=== PATIENT | female | born 1940 | race Caucasian/White ===

== ENCOUNTER 2023-03-20 12:05 | Outpatient (OUT) | payer MEDICARE, SELFPAY ==
[2023-03-20 13:02] LABS: Cholesterol 172 mg/dL (<=200); HDL Cholesterol 57 mg/dL (40-60); Triglycerides 210 mg/dL (<=150)
== END 2023-03-20 12:06 ==
LOC: LAB 12:10
PROVIDERS: PCP Internal Medicine; Visit Provider Internal Medicine Cardiovascular Disease
DX: E66.9 Obesity, unspecified (principal); Z13.220 Encounter for screening for lipoid disorders
CPT/HCPCS: 36415; 80061

== ENCOUNTER 2023-07-19 11:21 | Outpatient (OUT) | payer MEDICARE, SELFPAY ==
[2023-07-19 12:07] LABS: Basophils Percent Auto 0.5 % (0.2-2.0); Eosinophils Absolute Auto 0.1 10^3/uL (0.0-0.7); Eosinophils Percent Auto 1.1 % (0.9-7.0); Hematocrit 42.6 % (36.0-48.0); Hemoglobin 13.9 g/dL (12.0-16.0); Immature Granulocytes Abs Auto 0.02 10^3/uL (0.00-0.03); Immature Granulocytes Pct Auto 0.3 % (0.0-0.5); Lymphocytes Absolute Auto 1.1 10^3/uL (1.2-3.8); Lymphocytes Percent Auto 14.7 % (20.5-60.0); Mean Corpuscular HGB Conc 32.6 g/dL (29.9-35.2); Mean Corpuscular Hemoglobin 31.4 pg (26.7-34.0); Mean Corpuscular Volume 96.2 fL (81.0-99.0); Mean Platelet Volume 9.7 fL (9.5-13.5); Monocytes Absolute Auto 0.8 10^3/uL (0.3-0.8); Monocytes Percent Auto 10.4 % (1.7-12.0); Neutrophils Absolute Auto 5.6 10^3/uL (1.4-6.5); Platelet Count 204 10^3/uL (150-450); Red Blood Count 4.43 10^6/uL (4.20-5.40); Red Cell Distribution Width 13.4 % (11.0-15.0); White Blood Count 7.6 10^3/uL (4.0-11.0)
[2023-07-19 12:26] LABS: Estimated Average Glucose 126 mg/dL
[2023-07-19 12:57] LABS: BUN Creatinine Ratio 17.9; Chloride 101 mmol/L (98-107); Estimated GFR (African America 54 (>=60); Estimated GFR (Non-African Ame 44 (>=60); Glucose 93 mg/dL (74-106); Sodium 139 mmol/L (136-145); Thyroid Stimulating Hormone 2.366 uIU/mL (0.358-3.740)
--- NOTE | 2023-07-20 07:40 | PC.NURSE ---
1130 Arrived per wheelchair with lab staff, Rt chest port accessed with #[id number] villegas needle, obtained good blood return, labs drawn and given to lab staff, flushed with NSS and Heparin flush solution. Tolerated well. Released per wheelchair.
== END 2023-07-19 11:22 | disposition home or self-care (01) ==
LOC: LAB 11:24
PROVIDERS: PCP Internal Medicine; Visit Provider Internal Medicine
DX: E11.65 Type 2 diabetes mellitus with hyperglycemia (principal); E11.22 Type 2 diabetes mellitus with diabetic chronic kidney disease; N18.4 Chronic kidney disease, stage 4 (severe); E06.3 Autoimmune thyroiditis; D51.0 Vitamin B12 deficiency anemia due to intrinsic factor deficiency; R53.83 Other fatigue
CPT/HCPCS: 36415; 36591; 80048; 82607; 83036; 84443; 85025; G0463

== ENCOUNTER 2024-11-10 13:22 | Outpatient (OUT) | payer MEDICARE, SELFPAY ==
[2024-11-10 13:52] LABS: Basophils Absolute Auto 0.1 10^3/uL (0.0-0.1); Basophils Percent Auto 0.8 % (0.2-2.0); Eosinophils Absolute Auto 0.1 10^3/uL (0.0-0.7); Eosinophils Percent Auto 0.8 % (0.9-7.0); Hematocrit 44.1 % (36.0-48.0); Hemoglobin 14.1 g/dL (12.0-16.0); Immature Granulocytes Abs Auto 0.02 10^3/uL (0.00-0.03); Immature Granulocytes Pct Auto 0.2 % (0.0-0.5); Lymphocytes Absolute Auto 1.3 10^3/uL (1.2-3.8); Mean Corpuscular Volume 96.9 fL (81.0-99.0); Mean Platelet Volume 9.5 fL (9.5-13.5); Monocytes Absolute Auto 0.8 10^3/uL (0.3-0.8); Neutrophils Absolute Auto 6.3 10^3/uL (1.4-6.5); Neutrophils Percent Auto 74.2 % (43.0-75.0); Platelet Count 215 10^3/uL (150-450); Red Blood Count 4.55 10^6/uL (4.20-5.40); Red Cell Distribution Width 13.2 % (11.0-15.0); White Blood Count 8.5 10^3/uL (4.0-11.0)
[2024-11-10 13:55] LABS: Estimated Average Glucose 117 mg/dL; Glycohemoglobin A1C 5.7 % (4.5-6.2)
[2024-11-10] MEDS: HEPARIN SODIUM (PORCINE) PF LOCK FLUSH 500 UNIT/5 ML SYRINGE IV (13:59)
[2024-11-10 14:15] LABS: Alanine Aminotransferase 20 U/L (14-59); Albumin Globulin Ratio 0.9; Albumin Level 3.3 g/dL (3.4-5.0); Alkaline Phosphatase 116 U/L (46-116); Anion Gap 11.3; Aspartate Amino Transferase 20 U/L (15-37); BUN Creatinine Ratio 14.2; Bilirubin Total 0.5 mg/dL (0.2-1.0); Calcium 8.2 mg/dL (8.5-10.1); Carbon Dioxide 28.5 mmol/L (21.0-32.0); Chloride 104 mmol/L (98-107); Estimated GFR (African America 49 (>=60 mL/min/1.73m^2); Estimated GFR (Non-African Ame 40 (>=60 mL/min/1.73m^2); Globulin 3.8 g/dL; Glucose 122 mg/dL (74-106); Potassium 4.8 mmol/L (3.5-5.1); Sodium 139 mmol/L (136-145); Total Protein 7.1 g/dL (6.4-8.2)
[2024-11-10 14:24] LABS: Microalbum Creatinine Ratio Ur 10.7 mg/g (0.0-29.9); Microalbumin Urine Random 2.1 mg/dL (<=30.0)
== END 2024-11-10 13:23 | disposition home or self-care (01) ==
PROVIDERS: PCP Internal Medicine; Visit Provider Internal Medicine
DX: I12.9 Hypertensive chronic kidney disease with stage 1 through stage 4 chronic kidney disease, or unspecified chronic kidney disease (principal); N18.4 Chronic kidney disease, stage 4 (severe); E11.65 Type 2 diabetes mellitus with hyperglycemia; E03.8 Other specified hypothyroidism; E06.3 Autoimmune thyroiditis; I48.0 Paroxysmal atrial fibrillation
CPT/HCPCS: 36591; 80053; 82043; 82570; 83036; 84443; 85025; J1642

== ENCOUNTER 2025-01-29 11:42 | Outpatient (OUT) | payer MEDICARE, SELFPAY ==
--- NOTE | 2025-01-29 11:53 | XR_ITS ---
[facility] [place] [id number] Patient Name: MELIDA VALERIO MRN: [id number] date: 1940 Sex: F Assigned Patient Location: [facility] Current Patient Location: [facility] Accession/Order Number: [id number] Exam Date: 01/29/2025 12:22 Report Date: 01/29/2025 12:26 At the request of: ERIN ESPINO DO Procedure: XR thoracic spine 3V THORACIC SPINE - 3 views: CLINICAL HISTORY: Acute left-sided back pain for the past couple months COMPARISON: CT 10/29/2023 AP, lateral and swimmer's views were obtained. There is osteopenia. There is subtle dextroscoliotic curvature. There is no evidence of compression fracture or displacement. The pedicles are intact. Mild multilevel endplate spurring is seen. There are changes also noted at the cervical spine. There are no paraspinal soft tissue abnormalities. There is a right-sided Oesigt-w-Polq catheter. XR/XR thoracic spine 3V IMPRESSION: OSTEOPENIA, SCOLIOSIS AND DEGENERATIVE CHANGES. Impression dictated by: Melida Rodgers M.D.01/29/2025 12:26 PM Dictation Location: [place] [address] Electronically authenticated by: [id number] Y Date: 01/29/2025 12:26
== END 2025-01-29 11:43 | disposition home or self-care (01) ==
LOC: RAD 11:44
PROVIDERS: PCP Internal Medicine; Visit Provider Internal Medicine
DX: M54.6 Pain in thoracic spine (principal); M85.80 Other specified disorders of bone density and structure, unspecified site; M41.84 Other forms of scoliosis, thoracic region
CPT/HCPCS: 72072

== ENCOUNTER 2025-06-02 10:38 | Outpatient (REF) | payer MEDICARE, SELFPAY ==
--- OUTSIDE RECORDS SUMMARY | 2025-05-25 11:07 | XMS_ITS | Encounter Summary ---
Author Organization [facility] tem Address [id number] [address] [place] [address] Care Team Providers Care Picker Operator Name Role Phone Abhijit Wong Hernandez DO Primary Care Provider [phone] Encounter Details Date Type Department Care Team (Latest Contact Info) Description 05/25/2025 11:07 AM EDT - 05/25/2025 11:59 PM EDT Hospital Encounter [facility] - Pulmonary Function [address] [place] [id number] Persistent atrial fibrillation ([facility]) Discharge Disposition: Home Social History Tobacco Use Types Packs/Day Years Used Date Smoking Tobacco: Former Smokeless Tobacco: Never Childcare Answer Date Recorded Childcare Unknown 03/27/2019 Employment Answer Date Recorded Employment Unknown 03/27/2019 Purpose - Life Answer Date Recorded Purpose and direction in life Unknown Comments No Sex and Gender Information Value Date Recorded Sex Assigned at Not on file Legal Sex Female 5:36 PM EDT Gender Identity Not on file Sexual Orientation Not on file documented as of this encounter Medications at Time of Discharge amiodarone (PACERONE) 100 mg tablet Take 1 tablet (100 mg total) by mouth in the morning. amLODIPine (NORVASC) 5 mg tablet amlodipine 5 mg tablet busPIRone (BUSPAR) 7.5 mg tablet Take 1 tablet (7.5 mg total) by mouth 3 (three) times a day. fluticasone propion-salmete roL (ADVAIR) 100-50 mcg/dose DISKUS Advair Diskus 100 mcg-50 mcg/dose powder for inhalation hydroCHLOROthia zide (HYDRODIURIL) 25 mg tablet hydrochlorothiazide 25 mg tablet levothyroxine (SYNTHROID, LEVOTHROID) 125 MCG tablet levothyroxine 125 mcg tablet levothyroxine sodium (TIROSINT) 112 mcg capsule Take 112 mcg by mouth daily. montelukast (SINGULAIR) 10 mg tablet Take 10 mg by mouth nightly. orphenadrine (NORFLEX) 100 mg 12 hr tablet Take 1 tablet (100 mg total) by mouth 2 (two) times a day as needed for muscle spasms. 14 tablet 3 spironolactone (ALDACTONE) 25 mg tablet Take 1 tablet (25 mg total) by mouth in the morning. torsemide (DEMADEX) 20 mg tablet Take 1 tablet (20 mg total) by mouth daily. documented as of this encounter Plan of Treatment Upcoming Encounters Date Type Department Care Team (Late st Contact Info) Description 06/18/2025 1:30 PM EDT Infusion [facility] - Medical Oncology [address] [place] [phone] documented as of this encounter Goals Goal Patient Goal Type Associated Problems Recent Progress Patient-Stated? Author Home General Yes Jovanna Greenberg LSW Note: Evaluation of progress towards goal: Safe dc transition from hospital to home with family support. documented as of this encounter Procedures Procedure Name Priority Date/Time Associated Diagnosis Comments SPIROMETRY AND DLCO AND PLETHYSMOGRAPHY Routine 05/25/2025 11:28 AM EDT Persistent atrial fibrillation ([facility]) documented in this encounter Results * SPIROMETRY AND DLCO AND PLETHYSMOGRAPHY (05/25/2025 11:28 AM EDT) Narrative MANUALLY TRANSCRIBED RESULTS - 05/25/2025 2:13 PM EDT Patient gave good effort and data is reproducible Moderate obstructive pulmonary defect is demonstrated by FEV1/FVC 49 with FEV1 63% predicted or 1.10 L. Post bronchodilator values were not assessed Lung volumes reveal elevated residual volume 162% predicted or 3.46 L which would suggest some hyperinflation and air. Vital capacity is normal 87 % predicted. Diffusion capacity is severely impaired at 45. This can be seen in underlying emphysema, early interstitial lung disease, anemia, pulmonary vascular disease or pulmonary hypertension. Please correlate with clinical and radiographic data us Not In System Ref Prov PFT ORDERABLES Final Res ult MANUALLY TRANSCRIBED RESULTS documented in this encounter Visit Diagnoses Diagnosis Persistent atrial fibrillation (CMS-HCC) Atrial fibrillation documented in this encounter Care Teams Picker Operator Relationship Specialty Start Date End Date Wong Lacey DO [address] [place] [address] PCP - General 08/02/17 documented as of this encounter
--- OUTSIDE RECORDS SUMMARY | 2025-06-01 10:49 | XMS_ITS | Continuity of Care Document ---
Author Organization [facility] Address [address] [place] [address] Phone Care Team Providers Care Cuff Setter Overlock Name Role Phone Wong Lacey DO Primary Care Provider [phone] Wong Lacey DO Attending Provider [phone] Care Teams Patient Care Team Team Status: Active Member Role Status Dates Wong Lacey DO Primary Care Provider Active Visit Care Team Team Status: Inactive Member Role Status Dates Wong Lacey DO Primary Care Provider Active Start: April 10, 2025 End: April 10, 2025 Wong Lacey DO Attending Provider Active Sta rt: April 10, 2025 End: April 10, 2025 Visit Care Team Team Status: Inactive Member Role Status Dates Wong Lacey DO Primary Care Provider Active Start: April 20, 2025 End: April 20, 2025 Wong Lacey DO Attending Provider Active Sta rt: April 20, 2025 End: April 20, 2025 Patient Care Team Team Status: Inactive Member Role Status Dates Wong Lacey DO Primary Care Provider Active Start: June 01, 2025 End: June 01, 2025 Wong Lacey DO Attending Provider Active Sta rt: June 01, 2025 End: June 01, 2025 Chief Complaint and Reason for Visit Chief Complaint Admit Date b12 shot April 10, 2025 2:22 pm UA, burning April 20, 2025 11:03 am 4 mo f/u June 01, 2025 1: 40pm Reason for Visit Admit Date Acute thoracic back pain June 01 1:40pm Atrial fibrillation June 01, 2025 1: 40pm Chronic bronchitis [place] 18th, 2025 1: 40pm Chronic kidney disease June 01, 2025 1:40pm Essential hypertension June 01, 2025 1:40pm SKYLAR (generalized anxiety disorder) Augus t 2024 1:40pm History of breast cancer June 01 1:40pm Hypothyroid June 01, 2025 1: 40pm Malignant neoplasm of middle lobe of rig ht lung June 01, 2025 1:40pm Type 2 diabetes mellitus with hyperglyce michelle June 01, 2025 1:40pm Allergies, Adverse Reactions, Alerts Allergen Type Severity Reaction Last Updated Verified Status Comments erythromycin base Allergy Unknown Unknown Reaction June 01, 2025 1:58pm Yes Active RADHA Inhibitors Allergy Unknown Unknown Reaction June 01, 2025 1:58pm Yes Active rivaroxaban Allergy Unknown Unknown Reaction June 01, 2025 1:58pm Yes Active tiotropium Allergy Unknown Unknown Reaction June 01, 2025 1:58pm Yes Active Spiriva Respimat *ANTIASTHMATI Allergy Unknown Comment:oral irritation July 14, 2024 11:12am No Active Free Text Allergy: Spiriva Respimat *ANTIASTHMATIC AND BRONCHODILATOR Social History Smoking Status Status Start Date End Date Date of Observa tion Ex-smoker (finding) April 10:04am Observation Status Observation Response Date of Response Legal Sex Female (finding) Sex Assigned At Female 1940 Family History Relationship Condition Age at Onset Recorded Date/T madelaine Not Specified Malignant neoplasm of pancreas Unknown Malignant neoplasm of prostate Unknown father Hypertension Unknown Heart disease Unknown mother Malignant neoplasm Unknown Malignant neoplasm of breast Unknown Hypertension Unknown sister Malignant neoplasm of breast Unknown Malignant neoplasm Unknown Problems Active Problems Medical Problem Onset Date Status Comments Peripheral polyneuropathy Unknown Active Acute thoracic back pain Unknown Active Medicare annual wellness vis it, subsequent Unknown Active SKYLAR (generalized anxiety disorder) Unknown Active Type 2 diabetes mellitus wit h hyperglycemia Unknown Active History of breast cancer Unknown Active Diplopia Unknown Active Impaired mobility and activi ties of daily living Unknown Active Shingles Unknown Active Pernicious anemia Unknown Active Generalized weakness Unknown Active Atrial fibrillation Unknown Active Echo: LV EF 60%, RV normal size/function, RVSP normal - 01/2019 Dysuria Unknown Active 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 Unknown Active Hypothyroid Unknown Active Chronic kidney disease Unknown Active Non-small cell lung cancer (NSCLC) Unknown Active Essential hypertension Unknown Active Neuromuscular junction disorder Unknown Active Ptosis of eyelid, left Unknown Active Chronic bronchitis Unknown Active Medications Medication Status Dose Units Route Directions Qty Days St art Date Stop Date End Date Instructions Adherence Lorazepam 0.5 mg tablet Discont inued 0.5 MG PO Daily at bedtime as needed for anxiety and sleep 30 2023 5:28pm March 04, 2024 12:55 pm Levothyroxi ne 125 mcg tablet Discont inued 0 .ROUTE .COMPLEX February 04, 2024 1:22pm December 28, 2024 10:47 am TAKE 1 TABLET BY MOUTH DAILY ON SUNDAY, SUNDAY, AND SUNDAY Lorazepam 0.5 mg tablet Discont inued 0.5 MG PO Daily at bedtime as needed for anxiety and sleep 30 March 04, 2024 12:54p m Septe mber 2023 10:19 am Buspirone 15 mg tablet Discont inued 0 .ROUTE .COMPLEX 60 April 18, 2024 4:03pm Dece ravin 2023 4:31p m TAKE 1 TABLET BY MOUTH TWICE A DAY Blood Sugar Diagnostic ([facility] Ultra Test) strip Active 0 .Route 100 April 29, 2024 12:00a m to test blood sugar daily Lorazepam 0.5 mg tablet Discont inued 0.5 MG PO Daily at bedtime as needed for anxiety and sleep Septem ravin 2023 10:19a m [facility] ravin 2023 11:14 am Lorazepam 0.5 mg tablet Discont inued 0.5 MG PO Daily at bedtime as needed for anxiety and sleep Novemb er 2023 11:13a m March 06, 2025 1:06p m Buspirone 15 mg tablet Active 0 .ROUTE .COMPLEX 60 Dece er 2023 9:26am TAKE 1 TABLET BY MOUTH TWICE A DAY Complies with drug therapy Amiodarone 100 mg tablet Discont inued 0 PO Daily 90 90 2024 5:55pm Augus t 2024 1:57p m 5 times weekly orally daily; Levothyroxi ne 125 mcg tablet Active 0 .ROUTE .COMPLEX 36 December 28, 2024 10:47a m TAKE 1 TABLET BY MOUTH DAILY ON SUNDAY, SUNDAY, AND SUNDAY Complies with drug therapy Amlodipine 2.5 mg tablet Discont inued 0 .ROUTE .COMPLEX February 22, 2025 8:07am Augus t 2024 2:07p m TAKE 1 TABLET BY MOUTH DAILY Lorazepam 0.5 mg tablet Active 0.5 MG PO Daily at bedtime as needed for anxiety and sleep March 06, 2025 1:06pm Complies with drug therapy Fluticasone Propion-Alphonso meterol (Advair Diskus) 250-50 mcg/dose Blister With Device Discont inued 1 INH INHALA TION Q12H June 07, 2021 12:00a m January 30, 2022 1:49p m Amiodarone 200 mg Tablet Discont inued 200 MG PO Daily June 07, 2021 12:00a m January 30, 2022 1:49p m Amlodipine 5 mg Tablet Discont inued 5 MG PO Daily June 07, 2021 12:00a m January 30, 2022 1:49p m Levothyroxi ne 125 mcg Tablet Discont inued 125 MCG PO every Sunday, Sunday, and Monday June 07, 2021 12:00a m January 30, 2022 1:49p m Montelukast 10 mg Tablet Discont inued 10 MG PO Daily June 07, 2021 12:00a m Decem 2020 1:05p m Hydrochloro thiazide 25 mg Tablet Discont inued 25 MG PO Daily June 07, 2021 12:00a m January 30, 2022 1:49p m Albuterol Sulfate (Proair Hfa) 90 mcg/actuati on Hfa Aerosol Inhaler Discont inued 2 PUFF INHALA TION Q4H as needed for Dyspnea June 07, 2021 12:00a m January 30, 2022 1:49p m Levothyroxi ne 112 mcg Tablet Discont inued 112 MCG PO As Directed June 07, 2021 12:00a m January 30, 2022 1:49p m every sunday, , sunday, sunday Lorazepam 0.5 mg Tablet Discont inued 0.5 MG PO Twice daily as needed for Sleep 60 June 09, 2021 12:00a m Octob er 2020 10:20 am Ondansetron Hcl 8 mg Tablet Discont inued 8 MG PO Q8H as needed for Nausea 30 Septem ravin 2020 12:00a m Decem ravin 2020 1:05p m Lorazepam 0.5 mg Tablet Discont inued 0.5 MG PO Twice daily as needed for Sleep 60 30 Octobe r 2020 10:20a m Novem ravin 2020 11:28 am Gabapentin 300 mg Capsule Discont inued 300 MG PO Three times daily 90 Novemb er 2020 12:00a m Janua ry 2021 12:23 pm Levofloxaci n (Levaquin) 750 mg Tablet Discont inued 750 MG PO Daily Novemb er 2020 12:00a m Decem ravin 2020 1:01p m Omeprazole (Prilosec) 10 mg Capsule,Del ayed Release(Dr/ Ec) Discont inued 10 MG PO Daily Novemb er 2020 1:00am January 16, 2022 5:28p m Magic Mouth Wash Discont inued 1 TSP PO Q6H Novemb er 2020 1:00am Decem ravin 2020 1:04p m Lorazepam 0.5 mg Tablet Discont inued 0.5 MG PO Twice daily as needed for Sleep 60 30 Novemb er 2020 11:28a m Decem ravin 2020 1:05p m Hyaluronic Na-Allantoi n-Aloe (Radiaplexr x) Gel Discont inued 1 APPLIC TOPICA L Three times daily Novemb er 2020 1:00am Decem ravin 2020 1:04p m Metronidazo le 500 mg Tablet Discont inued 500 MG PO Three times daily 42 14 Decemb er 2020 1:00am Octua ry 2021 12:24 pm Vancomycin (Vancocin) 125 mg Capsule Discont inued 125 MG PO Four times daily 40 Decemb er 2020 1:00am Decem ravin 2020 1:01p m Fidaxomicin 200 mg Tablet Discont inued 200 MG PO Twice daily 20 y 2021 1:00am Octua ry 2021 3:31p m Fidaxomicin 200 mg Tablet Discont inued 200 MG PO Twice daily 2021 3:31pm January 16, 2022 5:27p m Lorazepam 0.5 mg Tablet Discont inued 0.5 MG PO Bedtime as needed for Sleep 60 2021 1:00am January 10, 2022 4:02p m 1-2 tabs PRN Potassium Chloride 20 mEq Tablet Extended Release Discont inued 20 MEQ PO Daily 2021 1:00am January 30, 2022 1:49p m Vancomycin 125 mg Capsule Discont inued 125 MG PO As Directed 98 December 23, 2021 1:00am January 30, 2022 1:49p m 1 tabs BID daily until sunday01/20/22 and 1 tab weekly for 7 days Lorazepam 0.5 mg Tablet Discont inued 0.5 MG PO Bedtime as needed for Sleep 60 30 January 10, 2022 4:02pm January 30, 2022 1:49p m 1-2 tabs PRN Meclizine 25 mg Tablet Discont inued 25 MG PO Daily February 24, 2022 12:00a m 2022 10:50 am Lorazepam 0.5 mg Tablet Discont inued 0.5 MG PO Bedtime as needed for Sleep 30 30 February 24, 2022 3:47pm April 10, 2022 11:03 am Lorazepam 0.5 mg Tablet Discont inued 0.5 MG PO Bedtime as needed for Sleep 60 60 April 10, 2022 11:03a m Augus t 2021 5:07p m Prednisone 10 mg Tablet Discont inued 10 MG PO Daily 60 April 18, 2022 12:00a m Octob er 2021 6:59a m Lorazepam 0.5 mg Tablet Discont inued 0.5 MG PO Bedtime as needed for Sleep 60 60 June 09, 2022 5:07pm Novem ravin 2021 3:24p m Diazepam (Valium) 5 mg Tablet Discont inued 5 MG PO Once 5 1 Oct r 2021 12:00a m Octua ry 2022 10:50 am Take 1 tab po 30 min prior to procedure. Lorazepam 0.5 mg Tablet Discont inued 0.5 MG PO Bedtime as needed for Sleep 60 60 Novemb er 2021 3:24pm Febru reymundo 2022 1:48p m Torsemide 20 mg Tablet Discont inued 20 MG PO Daily Octuar y 2022 1:00am Augus t 2023 10:56 am Lorazepam 0.5 mg Tablet Discont inued 0.5 MG PO Bedtime as needed for Sleep 60 60 Februa ry 2022 1:47pm Febru reymundo 2022 12:10 pm Lorazepam 0.5 mg Tablet Discont inued 0.5 MG PO Bedtime as needed for Sleep 60 60 ua ry 2022 12:10p m March 20, 2023 3:24p m Lorazepam 0.5 mg Tablet Discont inued 0.5 MG PO Bedtime as needed for Sleep 60 60 March 20, 2023 3:23pm Septe mber 2022 4:07p m Buspirone 7.5 mg Tablet Discont inued 7.5 MG PO Twice daily 60 April 30, 2023 12:00a m Octua ry 2023 2:32p m Lorazepam 0.5 mg Tablet Discont inued 0.5 MG PO Bedtime as needed for Sleep 60 60 Septem ravin 2022 4:07pm Septe mber 2022 4:36p m Lorazepam 0.5 mg Tablet Discont inued 0.5 MG PO Daily at bedtime as needed for anxiety and sleep 30 30 Septem ravin 2022 12:00a m Novem ravin 2022 11:26 am Lorazepam 0.5 mg Tablet Discont inued 0.5 MG PO Daily at bedtime as needed for anxiety and sleep 30 30 Novemb er 2022 11:26a m Febru reymundo 2023 5:29p m Buspirone 15 mg tablet Discont inued 7.5 MG PO Twice daily Octobe r 2021 12:00a m April 30, 2023 10:01 am Prednisone 10 mg tablet Discont inued 10 MG PO per package directions Octobe r 2021 6:59am Janua ry 2022 10:50 am Hydrocodone -Acetaminop hen 5-325 mg tablet Discont inued 1 TAB PO Q6H as needed for pain 20 5 Octobe r 2021 2022 10:48 am Hydrocodone -Acetaminop hen 5-325 mg tablet Discont inued 1 TAB PO Q6H as needed for pain 20 5 Septem ravin 2020 Octob er 2020 1:47p m Lorazepam (Ativan) 0.5 mg tablet Discont inued 0.5 MG PO Twice daily as needed for Sleep Decemb er 2020 1:04pm Oct 2021 10:43 am Hydrocodone -Acetaminop hen 5-325 mg tablet Discont inued 1 TAB PO Q6H as needed for pain 20 5 Decemb er 2020 2021 12:23 pm Fluconazole 100 mg Tablet Discont inued 100 MG PO Every morning 6 6 January 20, 2022 12:00a m January 30, 2022 1:49p m Prednisone 10 mg Tablet Discont inued 60 MG PO Daily 84 14 January 20, 2022 12:00a m January 30, 2022 1:49p m Cyanocobala min (Vitamin B-12) 5,000 mcg capsule Discont inued 5000 MCG PO Daily January 20, 2022 12:00a m January 30, 2022 1:49p m Fluconazole 100 mg Tablet Discont inued 100 MG PO Every morning 5 5 January 30, 2022 12:00a m February 24, 2022 10:16 am Amiodarone 200 mg Tablet Discont inued 200 MG PO Daily 30 January 30, 2022 12:00a m March 28, 2024 2:28p m Cyanocobala min (Vitamin B-12) 1,000 mcg Tablet Discont inued 1000 MCG PO Daily 30 January 30, 2022 12:00a m February 24, 2022 10:16 am Amlodipine 5 mg Tablet Discont inued 5 MG PO Daily 30 January 30, 2022 12:00a m April 30, 2023 10:03 am Albuterol Sulfate (Ventolin Hfa) 90 mcg/actuati on Hfa Aerosol Inhaler Active 2 PUFF INHALA TION Q4H as needed for Dyspnea 1 January 30, 2022 12:00a m Complies with drug therapy Fluticasone Propion-Alphonso meterol 113-14 mcg/actuati on Aerosol Powdr Breath Activated Discont inued 1 PUFF INHALA TION Every 12 hours 1 January 30, 2022 12:00a m March 28, 2024 3:08p m Prednisone 20 mg Tablet Discont inued 60 MG PO Daily 90 January 30, 2022 12:00a m April 18, 2022 10:50 am Aspirin 81 mg Tablet,Anne-Marie yed Release (Dr/Ec) Discont inued 81 MG PO Daily 30 January 30, 2022 12:00a m February 24, 2022 10:15 am Acetaminoph en 500 mg Tablet Discont inued 500 MG PO Q4H as needed for Pain 0 January 30, 2022 12:00a m Janua ry 2022 10:50 am Potassium Chloride (Klor-Con M20) 20 mEq Tablet,Er Particles/C rystals Discont inued 20 MEQ PO Daily 30 January 30, 2022 12:00a m April 30, 2023 10:03 am Lorazepam 0.5 mg Tablet Discont inued 0.5 MG PO Bedtime as needed for Sleep 0 January 30, 2022 12:00a m February 24, 2022 3:47p m Levothyroxi ne 125 mcg Tablet Discont inued 125 MCG PO [email or web address] 13 January 30, 2022 12:00a m February 04, 2024 1:22p m Hydrochloro thiazide 25 mg Tablet Discont inued 25 MG PO Daily 30 January 30, 2022 12:00a m April 30, 2023 10:02 am Levothyroxi ne (Synthroid) 112 mcg Tablet Discont inued 112 MCG PO [email or web address] 30 18 January 30, 2022 12:00a m Decem ravin 2023 4:31p m Fluticasone Propion-Alphonso meterol (Advair Diskus) 250-50 mcg/dose blister with device Active 1 INH INHALA TION Twice daily 60 30 Decemb er 2023 1:00am Complies with drug therapy Buspirone 15 mg tablet Discont inued 15 MG PO Twice daily 180 90 Decemb er 2023 4:30pm Decem ravin 2023 9:26a m Levothyroxi ne (Synthroid) 112 mcg tablet Active 112 MCG PO [email or web address] 30 52 90 Decemb er 2023 4:30pm Complies with drug therapy Vancomycin 125 mg capsule Discont inued 125 MG PO Daily June 13, 2024 12:00a m Augus t 2023 1:05p m Cephalexin 500 mg capsule Discont inued 500 MG PO Three times daily 26 02June 13, 2024 12:00a m [facility] 2023 2:16p m Vancomycin 125 mg capsule Discont inued 125 MG PO Daily 09 25June 13, 2024 12:00a m [facility] 2023 2:16p m Buspirone 7.5 mg tablet Discont inued 7.5 MG PO Twice daily 2023 2:31pm March 28, 2024 2:28p m Buspirone 7.5 mg tablet Discont inued 15 MG PO Twice daily March 28, 2024 2:24pm April 18, 2024 4:03p m Melatonin 5 mg capsule Active 5 MG PO Daily at bedtime March 28, 2024 12:00a m Complies with drug therapy Amiodarone 200 mg tablet Discont inued 100 MG PO Daily March 28, 2024 2:26pm Febru reymundo 2024 5:57p m Vit No.126-Iron -Folic (Classic ) 28 mg iron- 800 mcg tablet Active 1 TAB PO Daily March 28, 2024 12:00a m Complies with drug therapy Spironolact one 25 mg tablet Active 50 MG PO Daily March 28, 2024 12:00a m Complies with drug therapy Docusate Sodium 100 mg capsule Active 1 CAP PO Daily March 28, 2024 12:00a m FreeTextSi capsule as needed Orally Once a day; Note: Source Status: Taking; Provider: Abhijit Back ( ) Complies with drug therapy Fluticasone Propion-Alphonso meterol (Advair Diskus) 250-50 mcg/dose blister with device Discont inued 1 INH INHALA TION Twice daily 60 March 28, 2024 12:00a m Decem 2023 4:14p m Valacyclovi r 1 gram tablet Active 1000 MG PO Every 8 hours 21 7 Sept2023 12:00a m Complies with drug therapy Amlodipine 2.5 mg tablet Discont inued 2.5 MG PO Daily 30 January 27, 2025 12:00a m February 22, 2025 8:08a m Amiodarone 100 mg tablet Active 100 MG PO Daily June 01, 2025 1:56pm Complies with drug therapy Amlodipine 5 mg tablet Active 5 MG PO Daily June 01, 2025 2:06pm Complies with drug therapy Immunizations Immunization Event Date Not Given Reason Dose Number Lumber Handler Lot Number Vaccine Information Statement (VIS) Detail Administration Location COVID-19 mRNA-1273 (Moderna) October 25, 2020 COVID-19 mRNA-1273 (Moderna) December 10, 2020 COVID-19 mRNA-1273 (Moderna) January 10, 2021 COVID-19 mRNA-1273 (Moderna) June 23, 2021 COVID-19 mRNA-1273 (Moderna) November 22, 2020 COVID-19 mRNA-1273 (Moderna) June 13, 2021 Fluzone TIV High-Dose [id number] August 06, 2024 [id number] [facility] influenza, unspecified formulation July 13, 2016 influenza, unspecified formulation June 21, 2017 influenza, unspecified formulation July 31, 2018 influenza, unspecified formulation July 30, 2019 influenza, unspecified formulation September 08, 2020 influenza, unspecified formulation July 08, 2021 influenza, unspecified formulation August 15, 2022 influenza, unspecified formulation June 22, 2023 Pneumococcal Conjugate Vaccine, 13 valent July 17, 2016 Pneumococcal Conjugate Vaccine, 20 valent September 26, 2023 Tetanus, Diphtheria, Pertussis (Tdap) November 14, 2021 [id number] [facility] Medical Equipment Device Date Implanted Date Explanted Device Deta ils Vascular port/catheter August 10, 2022 TRENT: [id number] Issuing Agency: [facility] Device Id: [id number] Expiration Date: 2023-04-13 Lot Number: [id number] Vascular port/catheter June 27, 2021 October 13, 2021 TRENT: [id number] Issuing Agency: [facility] Device Id: [id number] Expiration Date: 2022-06-14 Lot Number: [id number] Vascular port/catheter October 13, 2021 August 10, 2022 TRETN: [id number] Issuing Agency: [facility] Device Id: [id number] Expiration Date: 2022-10-14 Lot Number: [id number] Relevant Diagnostic Tests and/or Laboratory Data Laboratory Results Test Collection Date/Time Result Date/Time Result Interpretation Reference Range Result Comment Performing Site Urine Color April 20, 2025 11:29am April 20, 2025 11:31am yellow Urine Appearance April 20, 2025 11:29am April 20, 2025 11:31am clear Urine Specific [place] April 20, 2025 11:29am April 20, 2025 11:31am 1.000 Urine pH April 20, 2025 11:29am April 20, 2025 11:31am 6.0 Urine Leukocyte Esterase April 20, 2025 11:29am April 20, 2025 11:31am negative Urine Nitrite April 20, 2025 11:29am April 20, 2025 11:31am Negative Urine Protein April 20, 2025 11:29am April 20, 2025 11:31am 15 Urine Glucose (UA) April 20, 2025 11:29am April 20, 2025 11:31am negative Urine Ketones April 20, 2025 11:29am April 20, 2025 11:31am negative Urine Urobilinoge n April 20, 2025 11:29am April 20, 2025 11:31am 0.2 Urine Bilirubin April 20, 2025 11:29am April 20, 2025 11:31am negative Urine Occult Blood April 20, 2025 11:29am April 20, 2025 11:31am negative Vital Signs Vital Reading Result Reference Range Collection Date/Time Height 65 [in_i] June 01 1:47pm Weight 88.45 kg June 01 1:47pm Heart Rate 65 /min 60-100 June 01 1:47pm Respiratory rate 12 /min 12-24 May 1:47pm BP Systolic 158 mm[Hg] 100-140 June 01 1:47pm BP Diastolic 73 mm[Hg] 60-100 June 01 1:47pm BMI (Body Mass Index) 32.4 kg/m2 June 01, 2025 1:47pm Advance Directives Advance Directive Response Recorded Date/ Time Advance Directives No June 07, 2021 12:28pm Insurance Providers Guarantor Melida Hermosillo Address [address] [place] [address] Contact Info. Home Phone: Payer Policy Id Subscriber's Name Subscriber Id Effectiv e Date Expiration Date Medicare Rehab-IP Part A [id number] [employer] [facility] [id number] Melida Hermosillo [id number] Encounters Encounter Location(s) Arrival/Admit Date Discharge/Depart Date Provider(s) Departed Physician/Prov ider Office Visit -[facility] April 10, 2025 2:22pm April 10, 2025 2:31pm Wong Lacey DO Departed Physician/Prov ider Office Visit -[facility] April 20, 2025 11:03am April 20, 2025 11:31am Wong Lacey DO Departed Physician/Prov ider Office Visit -[facility] June 01, 2025 1:40pm June 01, 2025 2:48pm Wong Lacey DO Recent Diagnosis Onset Date Admit Date Acute thoracic back pain Unknown June 01, 2025 1:40pm Atrial fibrillation Unknown June 01, 2025 1:40pm Chronic bronchitis Unknown June 01, 2025 1:40pm Chronic kidney disease Unknown June 012024 1:40pm Essential hypertension Unknown June 012024 1:40pm SKYLAR (generalized anxiety disorder) Unknown June 01, 2025 1:40pm History of breast cancer Unknown June 01, 2025 1:40pm Hypothyroid Unknown June 01 1:40pm 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 Unknown June 01, 2025 1:40pm Type 2 diabetes mellitus with hyperglycemia Unkn own June 01, 2025 1:40pm Assessments Diagnosis Onset Date Resolution Status Admit Date Acute thoracic back pain acute June 01, 2025 1:40pm Atrial fibrillation acute Augus t 2024 1:40pm Chronic bronchitis acute June 01, 2025 1:40pm Chronic kidney disease acute Au dionisio 2024 1:40pm Essential hypertension acute [facility] 2024 1:40pm SKYLAR (generalized anxiety disorder) acute June 01 1:40pm History of breast cancer acute June 01, 2025 1:40pm Hypothyroid acute June 01, 2025 1:40pm 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 Authored May 30, 2025 7: 52am I have instructed this patie nt to consume a healthy, low-fat, low-salt diet. I have also encouraged them to continue exercise with weight loss to achieve/maintain a BMI < 30. I have instructed this patient on the correct procedure for obtaining home BP measurements: - rest for 5 minutes w/o talking. - positioned w/ feet on floor and arms supported. - average best 2/3 readings w/ goal < 135/85. - update office w/ home readings in 2 weeks. Continue Spironolactone without interruption Restart Amlodipine at 2.5mg qd This patient is rhythm controlled. I instructed them to monitor their BP, HR and daily weights. I also instructed them to monitor for bleeding complications, including epistaxis, hematuria, melena and hematochezia. Not anticoagulated due to life threatening bleeding. Continue Amiodarone without interruption I instructed this patient on the benefits of adequate control of hypertension and diabetes, if appropriate. I have also instructed them to avoid use of NSAIDs due to the adverse effects on renal function. I instructed them on adequate fluid balance and to consume at least 48 oz of fluids daily. I also instructed them to monitor for an unexplained increase in weight and lower extremity edema. They have been instructed to notify the office for any changes or concerns. Acute mid back pain w/o provoking injury. Instructed on heat/ice and Tylenol. XR to r/o compression fracture or pathologic bone lesion Clinically euthyroid, monitor TSH Continue Levothyroxine without interruption I have instructed this patient to follow a comprehensive diabetic treatment plan. I have also instructed them to check their feet daily for calluses and nonhealing ulcers. I have instructed them to have a yearly dilated eye examination. I have reviewed their treatment goals: SBP less than 130, LDL less than 100, FBS less than 140, A1C less than 7%. I have instructed them to maintain a home BS log and bring the results to each of their office visits for review. I have explained the importance of routine monitoring of their A1C, Microalbumin and Lipids. I have explained the benefits of well controlled diabetes in preventing micro and macrovascular complications. A1C 5.7% Oct 2024 Instructed to use mucolytics to assist in clearing secretions. They are aware of the hazards associated with tobacco use, including but not limited to respiratory infections, vascular disease and cancers. Not a candidate for yearly LDCT chest for lung cancer screening. improve compliance of maintenance inhalers to bid JAQUAN as needed for cough, dyspnea Continue Advair and Albuterol without interruption Instructed on a healthy diet and exercise routine. Instructed to continue medical treatment w/o interruption. Instructed to avoid abrupt d/c of medication due to w/d symptoms. Continue Buspirone without interruption No s/s recurrence f/u Oncology I have instructed this patient on monthly SBE and recommended yearly mammograms. No s/s recurrence. f/u Oncology and Pulmonary Future Tests Future scheduled test information is unavailable Pending Tests Pending diagnostic test information is unavailable Future Visits Future appointment information is unavailable Referrals to Other Providers Referral information is unavailable Future Procedures Procedure Name Ordered Date Scheduled Date Dipstick and Microscopic June 01, 2025 2:38p m Urine Culture June 01, 2025 2:38pm Future Medications Future medication information is unavailable Patient Instructions Patient instructions are unavailable
--- OUTSIDE RECORDS SUMMARY | 2025-06-02 10:42 | XMS_ITS | Encounter Summary ---
Author Organization [employer] Address [id number] [address] [place] [address] Care Team Providers Care Bending Press Operator Name Role Phone Wong Lacey DO Primary Care Provider [phone] Encounter Details Date Type Department Care Team (Latest Contact Info) Description 05/25/2025 Travel Social History Tobacco Use Types Packs/Day Years [...] on file documented as of this encounter Plan of Treatment Upcoming Encounters Date Type Department Care Team (Late st Contact Info) Description 06/18/2025 1:30 PM EDT Infusion N[facility] - Medical Oncology [address] [place] [phone] documented as of this encounter Goals Goal Patient Goal Type Associated Problems Recent Progress Patient-Stated? Author Home General Yes Jovanna Greenberg LSW Note: Evaluation of progress towards goal: Safe dc transition from hospital to home with family support. documented as of this encounter Visit Diagnoses Not on filedocumented in this encounter Care Teams Bending Press Operator Relationship Specialty Start Date End Date Wong Lacey DO [address] [place] [address] PCP - General 08/02/17 documented as of this encounter
--- OUTSIDE RECORDS SUMMARY | 2025-06-02 10:42 | XMS_ITS | Encounter Summary ---
Author Organization [facility] Address [address] [place] [address] Phone Care Team Providers Care Computer Field Technician Name Role Phone Wong Lacey DO Primary Care Provider [phone] Wong Lacey DO Primary Care Provider [phone] Encounter Details Date Type Department Care Team (Late st Contact Info) Description 07/15/2021 Orders Only [facility] [address] [place] [address] Conversion, Onbase Social History Tobacco Use Types Packs/Day Years Used Date Smoking Tobacco: Never Assessed Comments Unknown Sex and Gender Information Value Date Recorded Sex Assigned at Not on file Legal Sex Female 4:09 PM EST Gender Identity Not on file Sexual Orientation Not on file documented as of this encounter Plan of Treatment Upcoming Encounters Date Type Department Care Team (Late st Contact Info) Description 06/11/2025 1:50 PM EDT Office Visit [facility] [address] [facility] [address] [place] [address] Khoi Harris MD [address] [facility] [address] [place] [address] Scheduled Orders Name Type Priority Associated Diagnoses Orde r Schedule OUTSIDE LAB SCAN Lab Ordered: 07/15/2021 documented as of this encounter Visit Diagnoses Not on filedocumented in this encounter Care Teams Computer Field Technician Relationship Specialty Start Date End Date Wong Lacey DO PCP - General 01/04/23 03/15/25 Wong Lacey DO [address] [place] [address] PCP - General Internal Medicine 03/16/25 documented as of this encounter
--- OUTSIDE RECORDS SUMMARY | 2025-06-02 10:42 | XMS_ITS | Clinical Summary ---
Author Organization [employer] tem Address [id number] [address] [place] [address] Care Team Providers Care Inshore Undersea Warfare Officer Name Role Phone AbhijitWong Mary CAUSEY Primary Care Provider [phone] Allergies Active Allergy Reactions Criticality Noted Date Comments Erythromycin Base 05/16/2021 Medications fluticasone propion-salme teroL (ADVAIR) 100-50 mcg/dose DISKUS Advair Diskus 100 mcg-50 mcg/dose powder for inhalation Active hydroCHLOROth iazide (HYDRODIURIL) 25 mg tablet hydrochlorothiazide 25 mg tablet Active amLODIPine (NORVASC) 5 mg tablet amlodipine 5 mg tablet Active levothyroxine sodium (TIROSINT) 112 mcg capsule Take 112 mcg by mouth daily. Active levothyroxine (SYNTHROID, LEVOTHROID) 125 MCG tablet levothyroxine 125 mcg tablet Active montelukast (SINGULAIR) 10 mg tablet Take 10 mg by mouth nightly. Active spironolacton e (ALDACTONE) 25 mg tablet Take 1 tablet (25 mg total) by mouth in the morning. Active torsemide (DEMADEX) 20 mg tablet Take 1 tablet (20 mg total) by mouth daily. Ac tive amiodarone (PACERONE) 100 mg tablet Take 1 tablet (100 mg total) by mouth in the morning. Active busPIRone (BUSPAR) 7.5 mg tablet Take 1 tablet (7.5 mg total) by mouth 3 (three) times a day. Acti ve orphenadrine (NORFLEX) 100 mg 12 hr tablet Take 1 tablet (100 mg total) by mouth 2 (two) times a day as needed for muscle spasms. 14 tablet 07/18/20 Active Active Problems Problem Noted Date Diagnosed Date Port-A-Cath in place 08/21/2024 Lung cancer 08/21/2024 Community acquired pneumonia of right lower lobe of lung 05/16/2021 Encounters Date Type Department Care Team Description 05/25/2025 11:07 AM EDT - 05/25/2025 11:59 PM EDT Hospital Encounter [facility] - Pulmonary Function [address] [place] [address] Persistent atrial fibrillation (CMS-HCC) Discharge Disposition: Home 05/25/2025 Travel 05/07/2025 1:30 PM EDT Infusion [facility] - Medical Oncology [address] [place] [phone] Malignant neoplasm of lung, unspecified laterality, unspecified part of lung (CMS-HCC) (Primary Dx); Port-A-Cath in place 05/07/2025 Travel 03/26/2025 1:30 PM EDT Infusion Nieves Roman [facility] - Medical Oncology [address] [place] [phone] Malignant neoplasm of lung, unspecified laterality, unspecified part of lung (CMS-HCC) (Primary Dx); Port-A-Cath in place 03/26/2025 Travel from Last 3 Months Family History Medical History Relation Name Comments Breast cancer Maternal Aunt Breast cancer Mother Breast cancer Sister Relation Name Status Comments Maternal Aunt Mother Sister Social History Tobacco Use Types Packs/Day Years [...] on file Sexual Orientation Not on file Last Filed Vital Signs Vital Sign Reading Time Taken Comments Blood Pressure 158/80 07/18/2023 7:32 PM EDT Pulse 57 07/18/2023 7:32 PM EDT Temperature 36.9 C (98.5 F) 07/18/2023 7:32 PM EDT Respiratory Rate 20 07/18/2023 7:32 PM EDT Oxygen Saturation 100% 07/18/2023 7:32 PM EDT Inhaled Oxygen Concentration - - Weight 90.7 kg (200 lb) 07/18/2023 7:32 PM EDT Height 167.6 cm (5' 6 ) 07/18/2023 7:32 PM EDT Body Mass Index 32.28 07/18/2023 7:32 PM EDT Plan of Treatment Upcoming Encounters Date Type Department Care Team (Late st Contact Info) Description 06/18/2025 1:30 PM EDT Infusion Nieves Roman [facility] - Medical Oncology [address] [place] [address] Health Maintenance Due Date Last Done Comments Depression Screening 1952 Zoster (Shingles) Vaccine (1 of 2) 05/10/2015 03/15/2015 COVID-19 Vaccine (4 - 2023-2 5 season) 2024 06/23/2021, 01/10/2021, 12/10/2020 Tobacco Screening 07/18/2024 07/18/2023 Influenza Vaccine 06/15/2025 08/06/2024, , 07/20/2021, Additional history exists Fall Risk Screening 02/12/2026 02/12/2025 DTaP,Tdap and Td Vaccines (2 - Td or Tdap) 11/14/2031 11/14/2021 Goals Goal Patient Goal Type Associated Problems Recent Progress Patient-Stated? Author Home General Yes Jovanna Greenberg LSW Note: Evaluation of progress towards goal: Safe dc transition from hospital to home with family support. Medical Devices Not on file Procedures Procedure Name Priority Date/Time Associated Diagnosis Comments SPIROMETRY AND DLCO AND PLETHYSMOGRAPHY Routine 05/25/2025 11:28 AM EDT Persistent atrial fibrillation (CMS-HCC) from Last 3 Months Results * SPIROMETRY AND DLCO AND PLETHYSMOGRAPHY [...] ORDERABLES Final Res ult MANUALLY TRANSCRIBED RESULTS from Last [address] [place] [address] [place] [phone] [employer] MEDICARE Advance Directives * Full Code (Latest Code Status on File) Date Activated Date Inactivated Comments 05/17/2021 11:53 AM 05/17/2021 8:03 PM Care Teams Inshore Undersea Warfare Officer Relationship Specialty Start Date End Date Wong Lacey DO [address] [place] [address] PCP - General 08/02/17
--- OUTSIDE RECORDS SUMMARY | 2025-06-02 10:42 | XMS_ITS | Encounter Summary ---
Author Organization [facility] Address [address] [place] [address] Phone Care Team Providers Care Head Turning Machine Operator Name Role Phone Wong Lacey DO Primary Care Provider [phone] Wong Lacey DO Primary Care Provider [phone] Encounter Details Date Type Department Care Team (Late st Contact Info) Description 09/25/2023 Scanned Document [facility] [address] [place] [address] Scanning, Generic Provider Social History Tobacco Use Types Packs/Day Years Used Date Smoking Tobacco: Never Assessed PHQ-2 Answer Date Recorded Patient Health Questionnaire-2 Score 4 05/16/2022 Comments Unknown Sex and Gender Information Value Date Recorded Sex Assigned at Not on file Legal Sex Female 4:09 PM EST Gender Identity Not on file Sexual Orientation Not on file documented as of this encounter Plan of Treatment Upcoming Encounters Date Type Department Care Team (Late st Contact Info) Description 06/11/2025 1:50 PM EDT Office Visit [facility] [address] [facility] [address] [place] [address] Khoi Harris MD [address] [facility] [address] [place] [address] documented as of this encounter Visit Diagnoses Not on filedocumented in this encounter Additional Health Concerns Assessment Noted Time PHQ-9 Depression Total Score: 16 022 11:33 AM EDT documented as of this encounter Care Teams Head Turning Machine Operator Relationship Specialty Start Date End Date Wong Lacey DO PCP - General 01/04/23 03/15/25 Wong Lacey DO [address] [place] [address] PCP - General Internal Medicine 03/16/25 documented as of this encounter
--- OUTSIDE RECORDS SUMMARY | 2025-06-02 10:42 | XMS_ITS | Encounter Summary ---
Author Organization [facility] Address [address] [place] [address] Phone Care Team Providers Care Sales Warehouse Driver Name Role Phone Wong Lacey DO Primary Care Provider [phone] Wong Lacey DO Primary Care Provider [phone] Encounter Details Date Type Department Care Team (Late st Contact Info) Description 11/15/2023 Scanned Document [facility] [address] [place] [phone] Scanning, Generic Provider Social History Tobacco Use [...] Description 06/11/2025 1:50 PM EDT Office Visit [facility] [address] [facility] [address] [place] [address] Khoi Harris MD [address] [facility] [address] [place] [address] Scheduled Orders Name Type Priority Associated Diagnoses Orde r Schedule PULMONARY FUNCTION TESTING PFT Ordered: 11/15/2023 documented as of this encounter Procedures Procedure Name Priority Date/Time Associated Diagnosis Comments OUTSIDE IMAGING SCAN 11/15/2023 documented in this encounter Results * OUTSIDE IMAGING SCAN (11/15/2023) Anatomical Region Laterality Modality Other Narrative 11/15/2023 Ordered by an unspecified provider. us Generic Provider Scanning OUTSIDE SCAN Final Result documented in this encounter Visit Diagnoses Not on filedocumented in this encounter Additional Health Concerns Assessment Noted Time PHQ-9 Depression Total Score: 16 022 11:33 AM EDT documented as of this encounter Care Teams Sales Warehouse Driver Relationship Specialty Start Date End Date Wong Lacey DO PCP - General 01/04/23 03/15/25 Wong Lacey DO [address] [place] [address] PCP - General Internal Medicine 03/16/25 documented as of this encounter
--- OUTSIDE RECORDS SUMMARY | 2025-06-02 10:42 | XMS_ITS | Encounter Summary ---
Author Organization [employer] Address [id number] [address] [place] [address] Care Team Providers Care Tool Tender Name Role Phone Wong Lacey Primary Care Provider [phone] Encounter Details Date Type Department Care Team (Late Contact Info) Description 08/27/2024 Abstract Nieves [facility] - Medical Oncology [facility] [place] [address] Natali Bazan Social History Tobacco Use Types Packs/Day Years [...] Encounters Date Type Department Care Team (Late Contact Info) Description 06/18/2025 1:30 PM EDT Infusion Nieves Miller [facility] - Medical Oncology [facility] [place] [address] documented as of this encounter Goals Goal Patient Goal Type Associated Problems Recent Progress Patient-Stated? Author Home General Yes Jovanna Greenberg LSW Note: Evaluation of progress towards goal: Safe dc transition from hospital to home with family support. documented as of this encounter Visit Diagnoses Not on filedocumented in this encounter Care Teams Tool Tender Relationship Specialty Start Date End Date Wong Lacey DO [address] [place] [address] PCP - General 08/02/17 documented as of this encounter
--- OUTSIDE RECORDS SUMMARY | 2025-06-02 10:42 | XMS_ITS | Encounter Summary ---
Author Organization [facility] Address [address] [place] [address] Phone Care Team Providers Care Chemical Engineering Professor Name Role Phone Wong Lacey DO Primary Care Provider [phone] Wong Lacey DO Primary Care Provider [phone] Encounter Details Date Type Department Care Team (Late st Contact Info) Description 04/18/2022 Orders Only [facility] [address] [place] [address] Conversion, Onbase Social History Tobacco Use Types [...] Description 06/11/2025 1:50 PM EDT Office Visit [facility] [address] [facility] [address] [place] [address] Khoi Harris MD [address] [facility] [address] [place] [address] Scheduled Orders Name Type Priority Associated Diagnoses Orde r Schedule OUTSIDE LAB SCAN Lab Ordered: 04/18/2022 documented as of this encounter Visit Diagnoses Not on filedocumented in this encounter Care Teams Chemical Engineering Professor Relationship Specialty Start Date End Date Wong Lacey DO PCP - General 01/04/23 03/15/25 Wong Lacey DO [address] [place] [address] PCP - General Internal Medicine 03/16/25 documented as of this encounter
--- OUTSIDE RECORDS SUMMARY | 2025-06-02 10:42 | XMS_ITS | Encounter Summary ---
Author Organization [facility] Address [address] [place] [address] Phone Care Team Providers Care Shot Hole Driller Name Role Phone Wong Lacey DO Primary Care Provider [phone] Wong Lacey DO Primary Care Provider Encounter Details Date Type Department Care Team (Late st Contact Info) Description 10/31/2023 Scanned Document [facility] [address] [place] [address] Scanning, Generic Provider Social History Tobacco Use [...] Description 06/11/2025 1:50 PM EDT Office Visit [facility] [address] [facility] [address] [place] [address] Khoi Harris MD [address] [facility] [address] [place] [address] documented as of this encounter Visit Diagnoses Not on filedocumented in this encounter Additional Health Concerns Assessment Noted Time PHQ-9 Depression Total Score: 16 022 11:33 AM EDT documented as of this encounter Care Teams Shot Hole Driller Relationship Specialty Start Date End Date Wong Lacey DO PCP - General 01/04/23 03/15/25 Wong Lacey DO [address] [place] [address] PCP - General Internal Medicine 03/16/25 documented as of this encounter
--- OUTSIDE RECORDS SUMMARY | 2025-06-02 10:42 | XMS_ITS | Clinical Summary ---
Author Organization [facility] Address [address] [facility] [place] [address] Care Team Providers Care Paper Latcher Name Role Phone Unavailable Primary Care Provider Unavailabl e Allergies Active Allergy Reactions Criticality Noted Date Comments Doron Inhibitors 11/05/2023 Other Reaction(s): Unknown, Unknown Reaction Azithromycin Other 05/22/2023 Clindamycin Hives 01/16/2017 Allergic to most antibiotics ending in mycin.??? Erythromycin Hives,Other 11/30/2023 Erythromycin Base 05/16/2021 Other Reaction(s): Unknown Reaction Rivaroxaban 11/05/2023 Other Reaction(s): Unknown Reaction Tiotropium 11/05/2023 Other Reaction(s): Unknown Reaction Tiotropium Dauphin Monohydrate 11/28/2023 Other Reaction(s): oral irritation Medications albuterol HFA 90 mcg/act inhaler Acti ve amiodarone (Pacerone) 200 MG tablet 1 (one) time each day at the same time. 09/10/20 22 Active Pacerone 100 MG tablet 03/31/20 23 Active amLODIPine (Norvasc) 5 MG tablet Active aspirin 81 MG EC tablet Take 1 tablet by mouth in the morning. Active benazepril-hydroC HLOROthiazide (Lotensin HCT) 20-25 MG tablet Acti ve budesonide (Pulmicort) 0.5 MG/2ML nebulizer solution 08/17/20 22 Active buPROPion SR (Wellbutrin SR) 150 MG 12 hr tablet 1 (one) time each day at the same time. Active busPIRone (Buspar) 15 MG tablet Buspirone Active 7.5 MG PO Twice daily August 09, 2022 11:00pm 08/10/20 22 Active busPIRone (Buspar) 5 MG tablet 03/20/20 23 Active busPIRone (Buspar) 7.5 MG tablet 04/30/20 23 Active Pepcid 20 MG tablet 1 tablet Orally at bedtime for 30 day(s) 04/05/20 22 Active Fluticasone-Salme terol 100-50 MCG/ACT aerosol powder Advair Diskus 100 mcg-50 mcg/dose powder for inhalation Active Fluticasone-Salme terol (Advair Diskus) 100-50 MCG/ACT aerosol powder Inhale 1 puff in the morning and 1 puff in the evening. Active fluticasone-salme terol (Advair Diskus) 250-50 MCG/DOSE diskus inhaler 1 puff every 12 (twelve) hours. Active gabapentin (Neurontin) 100 MG capsule Take 1 capsule as needed by oral route for 90 days. Active heparin flush 100 units/mL solution NURSING USE ONLY: USE FOR IMPLANTED VASCULAR ACCESS DEVICE (IVAD) FLUSH. AMBULATORY/OUTPAT IENT: PLEASE REORDER UPON HOSPITAL DISCHARGE May access implanted vascular access device (IVAD) as needed for treatment. Before de-accessing port, flush with 10-20ml normal saline and follow with 5 mL heparin (100 units/mL) (if no heparin allergy). De-access port on treatment completion. 12/09/19 23 Active hydroCHLOROthiazi de (HYDRODiuril) 25 MG tablet Take 1 tablet by mouth in the morning. Active hydroCHLOROthiazi de (HYDRODiuril) 25 MG tablet 1 (one) time each day at the same time. Active levothyroxine (Synthroid, Levoxyl) 112 MCG tablet Take 1 tablet every other day by oral route. Active levothyroxine (Synthroid, Levoxyl) 125 MCG tablet Take 1 tablet every other day by oral route. Active levothyroxine (Tirosint) 112 MCG capsule Take 112 mcg by mouth in the morning. Active Ativan 0.5 MG tablet 1 (one) time each day at the same time. 08/28/20 22 Active losartan (Cozaar) 50 MG tablet Take 1 tablet by mouth in the morning. Active metoprolol succinate XL (Toprol-XL) 25 MG 24 hr tablet Take 1 tablet by mouth in the morning. Active mirtazapine (Remeron) 15 MG tablet Take 0.5 tablets every day by oral route for 90 days. Active montelukast (Singulair) 10 MG tablet Take 10 mg by mouth at bedtime. Active olmesartan-hydroC HLOROthiazide (BENIcar HCT) 20-12.5 MG tablet Ac tive omeprazole (PriLOSEC) [address] capsule Active KLOR-CON 20 MEQ ER tablet 12/02/19 23 Active predniSONE (Deltasone) 5 MG tablet 1 tablet Orally qod Active Yupelri 175 MCG/3ML nebulizer solution 08/26/20 22 Active spironolactone (Aldactone) 25 MG tablet 04/07/20 23 Active torsemide (Demadex) 20 MG tablet Take 20 mg by mouth in the morning. Active Calcium Citrate-Vitamin D 315-5 MG-MCG tablet Take 2 tablets by mouth in the morning. 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 Diplopia 11/28/2023 Encounters Date Type Department Care Team Description 04/08/2025 Telephone [facility] [address] [place] [address] Christiano Jara DO 04/01/2025 3:15 PM EDT Office Visit [facility] [address] [place] [address] Christiano Jara, Intermediate stage nonexudative age-related macular degeneration of both eyes (Primary Dx); Optic atrophy; Dry eyes; Diplopia 04/01/2025 Bamboo flowsheet [facility] [address] [place] [address] Christiano Jara DO 04/01/2025 Travel from Last 3 Months Family History Medical History Relation Name Comments COPD Father Heart disease Father Hypertension Father Breast cancer Mother Hypertension Mother Breast cancer Sister Relation Name Status Comments Father Mother Sister Social History Tobacco Use Types Packs/Day Years Used Date Smoking Tobacco: Former Cigarettes Tobacco Cessation:Counseling Given: Not Answered Comments:Stopped smoking age 15 years Alcohol Use Standard Drinks/Week Comments Yes 0 (1 standard drink = 0.6 oz pur e alcohol) caffeine: none Comments Unknown Sex and Gender Information Value Date Recorded Sex Assigned at Not on file Legal Sex Female 8:32 PM EDT Gender Identity Not on file Sexual Orientation Not on file Last Filed Vital Signs Vital Sign Reading Time Taken Comments Blood Pressure 120/62 07/28/2022 12:00 PM EDT Pulse - - Temperature - - Respiratory Rate - - Oxygen Saturation - - Inhaled Oxygen Concentration - - Weight 88.5 kg (195 lb) 08/18/2022 12:00 PM EDT Height 165.1 cm (5' 5 ) 08/18/2022 12:00 PM EDT Body Mass Index 32.45 08/18/2022 12:00 PM EDT Plan of Treatment Upcoming Encounters Date Type Department Care Team (Late st Contact Info) Description 12/30/2025 1:15 PM EDT Office Visit [facility] [address] [place] [phone] Christiano Jara DO [address] [place] [address] Health Maintenance Due Date Last Done Comments Influenza Vaccine (#1) 2025 4, 08/15/2022, 07/20/2021, Additional history exists Pneumococcal Vaccine: 65+ Years Completed 7, 07/17/2016 Procedures Procedure Name Priority Date/Time Associated Diagnosis Comments OCT, RETINA - OU - BOTH EYES Routine 04/01/2025 4:03 PM EDT Intermediate stage nonexudative age-related macular degeneration of both eyes from Last 3 Months Results * OCT, Retina - OU - Both Eyes (04/01/2025 4:03 PM EDT) Anatomical Region Laterality Modality Head Optical Coherenc e Tomography Narrative 04/01/2025 4:03 PM EDT Right Eye Quality was good. Scan locations included subfoveal. Progression has been stable. Findings include abnormal foveal contour. Left Eye Quality was good. Scan locations included subfoveal. Progression has been stable. Findings include abnormal foveal contour, pigment epithelial detachment. Notes Macular volume loss OU us Christiano Jara DO OPHTH TOMOGRAPHY Edited Res ult - Final from Last [address] [place] [address] [employer] MED[employer]ARE ADVANTAGE
--- OUTSIDE RECORDS SUMMARY | 2025-06-02 10:42 | XMS_ITS | Clinical Summary ---
Author Organization [facility] Address [address] [place] [address] Care Team Providers Care Director [employer] Name Role Phone Unavailable Primary Care Provider Unavailabl e Social History Tobacco Use Types Packs/Day Years Used Date Smoking Tobacco: Never Assessed Comments Unknown Sex and Gender Information Value Date Recorded Sex Assigned at Not on file Legal Sex Female 9:32 PM EDT Gender Identity Not on file Sexual Orientation Not on file Plan of Treatment Not on file
--- OUTSIDE RECORDS SUMMARY | 2025-06-02 10:42 | XMS_ITS | Encounter Summary ---
Author Organization [facility] Address [address] [place] [address] Care Team Providers Care Field Irrigation Worker Name Role Phone Unavailable Primary Care Provider Unavailabl e Encounter Details Date Type Department Care Team (Late st Contact Info) Description 10/29/2023 External Result Encounter [facility] External Department Unsolicited Jack Christianson, DO [address] [place] [address] Social History Tobacco Use Types Packs/Day Years Used Date Smoking Tobacco: Former Cigarettes Comments:Stopped smoking age 15 years Alcohol Use [...] 12/30/2025 1:15 PM EDT Office Visit [facility] [address] [place] [id number] Christiano Jara DO [address] [place] [address] documented as of this encounter Procedures Procedure Name Priority Date/Time Associated Diagnosis Comments CT ABDOMEN PELVIS W IV CONTRAST 10/29/2023 1:56 PM EST documented in this encounter Results * CT abdomen pelvis w IV contrast (10/29/2023 1:56 PM EST) Anatomical Region Laterality Modality Body, Pelvis, Abdomen Computed T omography 10/29/2023 1:56 PM EST Impressions 10/29/2023 2:[address] evidence of metastatic disease seen within the chest, abdomen or pelvis. Colonic diverticulosis with questionable wall thickening involving the transverse colon without surrounding inflammatory change. Finding is new compared to the prior CT study. Finding possibly relates to underdistention. Attention on follow-up is suggested. Impression dictated by: Dorian Medina Jr., D.OSeamus10/29/2023 2:02 PM Dictation Location: [id number]-12 Transcribed By: P[facility] 10/29/23 1402 Dictated By: Dorian Medina Jr, DO 10/29/23 1356 Signed By: <Electronically signed by Dorian Medina Jr, DO in OV> 10/29/23 1402 Narrative 10/29/2023 2:08 PM EST [facility] Main [place] [address] [place] [address] CT Scan Report Signed Patient: Melida Hermosillo MR#: [id number] 6 : 1940 Acct:[id number] Age/Sex: 83 / F ADM Date: 10/29/23 Loc: Room: Type: [facility] RCR Attending Dr: Jack Christianson II, DO Copies to: Jack Christianson II, DO Ordering Provider: Jack Christianson II, DO Date of Service: 10/29/23 CT/CT abdomen pelvis w con: survailance ([id number]) CT/CT chest w con: survailance CT CHEST, ABDOMEN AND PELVIS WITH INTRAVENOUS CONTRAST: CLINICAL HISTORY: Follow-up lung cancer. Cough. History of breast cancer. COMPARISON: CT chest, abdomen and pelvis 04/27/2023. TECHNIQUE: TECHNIQUE: Spiral images were obtained through the chest, abdomen and pelvis following the administration of IV contrast. This CT exam was performed using one or more following dose reduction techniques: Automated exposure control, adjustment of the mA and/or kV according to patient size, or use of iterative reconstruction technique. FINDINGS: CT chest: Mediastinum:Right-sided port is in place. Thoracic aorta demonstrates moderate calcification without aneurysm. Pulmonary trunk appears nondilated. No pericardial effusion. No lymphadenopathy. The esophagus is grossly unremarkable. Small hiatal hernia. Lungs:Presumed postradiation changes centered at the right hilar region grossly unchanged from the prior study with associated scarring. Additional scattered areas of scarring are seen most prominent involving the lingula. No new consolidation, pneumothorax or pleural effusion. No suspicious pulmonary nodule or mass. Emphysema. Soft tissues/Bones: Soft tissue stranding the chest wall demonstrate no acute findings. Presumed post intervention changes involving the left breast. No axillary or subpectoral lymphadenopathy. Osseous structures demonstrate degenerative change. CT abdomen and pelvis: Organs:Gallbladder has been removed. Liver portal vein pancreas spleen and right adrenal gland appear unremarkable. Stable left adrenal nodule. No enhancing renal mass or hydronephrosis. Abdominal aorta demonstrates moderate calcification without aneurysm.[ GI: Distal stomach is grossly unremarkable. Small bowel appears nondilated. Colonic diverticulosis.[Questionable wall thickening involving the transverse colon without inflammatory change. Pelvis:[Urinary bladder is grossly unremarkable. Uterus has been removed. No adnexal mass.] Peritoneum/Retroperitoneum:No free air, free fluid or lymphadenopathy.[ Abd wall/Bones:Abdominal wall demonstrates no acute findings. Osseous structures demonstrate degenerative change.[ CT/CT chest w con Procedure Note Radiology, Radiologist, MD - 10/29/2023 [facility] Main [place] [address] [place] [address] CT Scan Report Signed Patient: Britt Hermosillo#: [id number] 6 : 1Acct:[id number] Age/Sex: 83 / FADM Date: 10/29/23 Loc: Room:Type: [facility] RCR Attending Dr: Jack Christianson II DO Copies to: Jack Christianson II, DO Ordering Provider: Jack Christianson II, DO Date of Service: 10/29/23 CT/CT abdomen pelvis w con: survailance ([id number]) CT/CT chest w con: survailance CT CHEST, ABDOMEN AND PELVIS WITH INTRAVENOUS CONTRAST: CLINICAL HISTORY: Follow-up lung cancer. Cough. History of breast cancer. COMPARISON: CT chest, abdomen and pelvis 04/27/2023. TECHNIQUE: TECHNIQUE: Spiral images were obtained through the chest,abdomen and pelvis following the administration of IV contrast. This CT exam was performed using oneor more following dose reduction techniques: Automated exposure control, adjustment of the mAand/or kV according to patient size, or use of iterative reconstruction technique. FINDINGS: CT chest: Mediastinum:Right-sided port is in place. Thoracic aorta demonstratesmoderate calcification without aneurysm. Pulmonary trunk appears nondilated. No pericardial effusion. Nolymphadenopathy. The esophagus is grossly unremarkable. Small hiatal hernia. Lungs:Presumed postradiation changes centered at the right hilar regiongrossly unchanged from the prior study with associated scarring. Additional scattered areas ofscarring are seen most prominent involving the lingula. No new consolidation, pneumothorax or pleuraleffusion. No suspicious pulmonary nodule or mass. Emphysema. Soft tissues/Bones: Soft tissue stranding the chest wall demonstrate noacute findings. Presumed post intervention changes involving the left breast. No axillary orsubpectoral lymphadenopathy. Osseous structures demonstrate degenerative change. CT abdomen and pelvis: Organs:Gallbladder has been removed. Liver portal vein pancreas spleen andright adrenal gland appear unremarkable. Stable left adrenal nodule. No enhancing renal massor hydronephrosis. Abdominal aorta demonstrates moderate calcification without aneurysm.[ GI: Distal stomach is grossly unremarkable. Small bowel appearsnondilated. Colonic diverticulosis.[Questionable wall thickening involving the transversecolon without inflammatory change. Pelvis:[Urinary bladder is grossly unremarkable. Uterus has been removed.No adnexal mass.] Peritoneum/Retroperitoneum:No free air, free fluid or lymphadenopathy.[ Abd wall/Bones:Abdominal wall demonstrates no acute findings. Osseousstructures demonstrate degenerative change.[ CT/CT chest w con IMPRESSION: No CT evidence of metastatic disease seen within the chest, abdomen orpelvis. Colonic diverticulosis with questionable wall thickening involving thetransverse colon without surrounding inflammatory change. Finding is new compared to the prior CTstudy. Finding possibly relates to underdistention. Attention on follow-up is suggested. Impression dictated by: Dorian Medina Jr., D.O.10/29/2023 2:02 PM Dictation Location: [place] [address] Transcribed By: [facility] 10/29/23 1405 Dictated By: Dorian Medina Jr, DO 10/29/23 1356 Signed By: <Electronically signed by Dorian Medina Jr, DO inOV> 10/29/23 1402 Jack Christianson DO IMG CT PROCEDURES Final R esult documented in this encounter Visit Diagnoses Not on filedocumented in this encounter
--- OUTSIDE RECORDS SUMMARY | 2025-06-02 10:42 | XMS_ITS | Encounter Summary ---
Author Organization [facility] Address [address] [place] [address] Care Team Providers Care Music Department Chair Name Role Phone Unavailable Primary Care Provider Unavailabl e Encounter Details Date Type Department Care Team (Late st Contact Info) Description 04/27/2023 External Result Encounter [facility] External Department Unsolicited Jack Christianson, DO [address] [place] [address] Social History Tobacco Use Types Packs/Day Years [...] 12/30/2025 1:15 PM EDT Office Visit [facility] [address] [place] [phone] Christiano Jara DO [address] [place] [address] documented as of this encounter Procedures Procedure Name Priority Date/Time Associated Diagnosis Comments CT ABDOMEN PELVIS W IV CONTRAST 04/27/2023 4:35 PM EDT documented in this encounter Results * CT abdomen pelvis w IV contrast (04/27/2023 4:35 PM EDT) Anatomical Region Laterality Modality Body, Pelvis, Abdomen Computed T omography 04/27/2023 4:35 PM EDT Impressions 04/30/2023 11:33 AM EDT IMPROVING RIGHT MIDDLE LOBE ATELECTASIS AND SOFT TISSUE DENSITY AT THE RIGHT HILUM. ADDITIONAL MINOR ATELECTASIS OR SCARRING AND TINY STABLE PULMONARY NODULES. STABLE LEFT ADRENAL NODULE. LEFT RENAL CYST. NO BOWEL OR URINARY TRACT OBSTRUCTION. DIFFUSE DIVERTICULOSIS. NO OTHER ACUTE FINDINGS ARE SUSPECTED METASTATIC DISEASE. Impression dictated by: Melida Rodgers M.D.04/27/2023 4:53 PM Dictation Location: [place] [address] Transcribed By: [facility] 04/27/231652 Dictated By: Melida Rodgers MD 04/27/23 1635 Signed By: <Electronically signed by MD Melida Rodgers in OV> 04/27/23 1653 Narrative 04/30/2023 11:33 AM EDT [facility] Main [place] [address] [place] [address] CT Scan Report Signed Patient: Melida Hermosillo MR#: [id number] 6 : 1940 Acct:[id number] Age/Sex: 83 / F ADM Date: 04/27/23 Loc: Room: Type: [facility] RCR Attending Dr: Jack Christianson II DO Copies to: Jack Christianson II, DO Ordering Provider: Jack Christianson II, DO Date of Service: 04/27/23 CT/CT chest w con: surveilance ([id number]) CT/CT abdomen pelvis w con: surveilance CT CHEST, ABDOMEN AND PELVIS WITH INTRAVENOUS CONTRAST: CLINICAL HISTORY: Restaging of right lung cancer. Patient also has history of left breast cancer. COMPARISON: 10/26/2022 TECHNIQUE: Spiral images were obtained through the chest, abdomen and pelvis following oral and intravenous administration of 90 mL of Isovue-300. Images of the chest were reviewed using both narrow and wide window settings. This CT exam was performed using one or more following dose reduction techniques: Automated exposure control, adjustment of the mA and/or kV according to patient size, or use of iterative reconstruction technique. FINDINGS: There is a right-sided Qrjhto-s-Mxtj catheter. The heart is slightly prominent. There is no pericardial effusion. Coronary artery calcification and/or stents are present. No aortic aneurysm or dissection is seen. There is moderate plaque at the thoracic aorta and proximal great vessels. Soft tissue at the right hilum is decreasing in prominence. There is no developing mediastinal or hilar lymphadenopathy. There is mild atelectasis and possible scarring bilaterally, greatest at the right middle lobe where there is interval improvement. There is no new consolidation or pleural effusion. There are tiny 2 - 3 mm nodular densities at the right apex on axial images 24 and 32 and the left on axial image 28. These are stable. Mild endplate spurring is present at the spine. No intrahepatic masses are identified. The gallbladder is surgically absent. The spleen and pancreas show no acute findings. A 2 cm left adrenal nodule is again visualized. There are symmetric bilateral renal nephrograms, without hydronephrosis. There is a left renal cyst. Atherosclerotic plaque is present the aorta, iliac and proximal great vessels. There is a tiny umbilical hernia containing fat. There are no enlarged lymph nodes or ascites. No dilated small bowel loops are present. A small intraluminal lipoma is again suspected near the ligament of Treitz. There is stool along the colon. There are scattered colonic diverticula. There are no acute osseous abnormalities. There are minor degenerative changes. Images through the pelvis show no dilated small bowel. The appendix is surgically absent. There is a small amount of distal colonic stool. There are multiple additional descending and sigmoid diverticula. No active inflammation is visualized. The uterus is surgically absent. The urinary bladder shows no CT abnormalities. There is no lymphadenopathy or ascites. There is minor degenerative change at the SI joints. CT/CT chest w con Procedure Note Radiology, Radiologist, - 04/30/2023 [facility] Main [place] [address] [place] [address] CT Scan Report Signed Patient: Melida HermosilloMR#: [id number] 6 : 1940cct:[id number] Age/Sex: 83 / FADM Date: 04/27/23 Loc: [facility]T [facility]: Jack Christianson II DO Copies to: Jack Christianson II, DO Ordering Provider: Jack Christianson II, DO Date of Service: 04/27/23 CT/CT chest w con: surveilance ([id number]) CT/CT abdomen pelvis w con: surveilance CT CHEST, ABDOMEN AND PELVIS WITH INTRAVENOUS CONTRAST: CLINICAL HISTORY: Restaging of right lung cancer. Patient also has historyof left breast cancer. COMPARISON: 10/26/2022 TECHNIQUE: Spiral images were obtained through the chest, abdomen andpelvis following oral and intravenous administration of 90 mL of Isovue-300. Images of the chestwere reviewed using both narrow and wide window settings. This CT exam was performed using one ormore following dose reduction techniques: Automated exposure control, adjustment of the mAand/or kV according to patient size, or use of iterative reconstruction technique. FINDINGS: There is a right-sided Aejqmr-o-Wdgr catheter. The heart isslightly prominent. There is no pericardial effusion. Coronary artery calcification and/or stents arepresent. No aortic aneurysm or dissection is seen. There is moderate plaque at the thoracicaorta and proximal great vessels. Soft tissue at the right hilum is decreasing in prominence. Thereis no developing mediastinal or hilar lymphadenopathy. There is mild atelectasis andpossible scarring bilaterally, greatest at the right middle lobe where there is interval improvement.There is no new consolidation or pleural effusion. There are tiny 2 - 3 mm nodular densities at theright apex on axial images 24 and 32 and the left on axial image 28. These are stable. Mild endplatespurring is present at the spine. No intrahepatic masses are identified. The gallbladder is surgicallyabsent. The spleen and pancreas show no acute findings. A 2 cm left adrenal nodule is again visualized.There are symmetric bilateral renal nephrograms, without hydronephrosis. There is a left renalcyst. Atherosclerotic plaque is present the aorta, iliac and proximal great vessels. There is atiny umbilical hernia containing fat. There are no enlarged lymph nodes or ascites. No dilatedsmall bowel loops are present. A small intraluminal lipoma is again suspected near the ligamentof Treitz. There is stool along the colon. There are scattered colonic diverticula. There are noacute osseous abnormalities. There are minor degenerative changes. Images through the pelvis show no dilated small bowel. The appendix issurgically absent. There is a small amount of distal colonic stool. There are multiple additionaldescending and sigmoid diverticula. No active inflammation is visualized. The uterus issurgically absent. The urinary bladder shows no CT abnormalities. There is no lymphadenopathy or ascites.There is minor degenerative change at the SI joints. CT/CT chest w con IMPRESSION: IMPROVING RIGHT MIDDLE LOBE ATELECTASIS AND SOFT TISSUE DENSITY AT THERIGHT HILUM. ADDITIONAL MINOR ATELECTASIS OR SCARRING AND TINY STABLE PULMONARYNODULES. STABLE LEFT ADRENAL NODULE. LEFT RENAL CYST. NO BOWEL OR URINARY TRACT OBSTRUCTION. DIFFUSE DIVERTICULOSIS. NO OTHER ACUTE FINDINGS ARE SUSPECTED METASTATIC DISEASE. Impression dictated by: Melida Rodgers M.D.04/27/2023 4:53 PM Dictation Location: [place] [address] Transcribed By: [facility] 04/27/23 6379 Dictated By: Melida Rodgers MD 04/27/23 1635 Signed By: <Electronically signed by MD Melida Rodgers in OV> 04/27/23 1653 Jack Christianson DO IMG CT PROCEDURES Final R esult documented in this encounter Visit Diagnoses Not on filedocumented in this encounter
--- OUTSIDE RECORDS SUMMARY | 2025-06-02 10:42 | XMS_ITS | Encounter Summary ---
Author Organization [facility] Address [address] [place] [address] Care Team Providers Care Engineering Specialist Technician Name Role Phone Unavailable Primary Care Provider Unavailabl e Encounter Details Date Type Department Care Team (Late st Contact Info) Description 06/23/2024 External Result Encounter [facility] External Department Unsolicited Jack Christianson, DO [address] [place] [address] Social History Tobacco Use Types Packs/Day Years [...] 12/30/2025 1:15 PM EDT Office Visit [facility] [address] [place] [id number] Christiano Jara DO [address] [place] [address] documented as of this encounter Procedures Procedure Name Priority Date/Time Associated Diagnosis Comments CT CHEST W IV CONTRAST 06/23/2024 5:44 PM EDT documented in this encounter Results * CT chest w IV contrast (06/23/2024 5:44 PM EDT) Anatomical Region Laterality Modality Body, Chest Computed Tomogra phy 06/23/2024 5:44 PM EDT Impressions 06/23/2024 5:56 PM EDT No significant interval change. Perihilar scarring/opacity is redemonstrated, right greater than left. No pathologically enlarged mediastinal or hilar lymph nodes. There is a 2.1 cm nodule in the left adrenal gland which is unchanged. There is hypoattenuation of the liver parenchyma suggesting hepatic steatosis. Uncomplicated colonic diverticula are noted. Impression dictated by: Scar Lawson M.D.06/23/2024 5:53 PM Dictation Location: [place] [address] Transcribed By: [facility] 06/23/241752 Dictated By: Scar Lawson II, MD 06/23/241743 Signed By: <Electronically signed by Scar Lawson II, MD in OV> 06/23/24 175 Narrative 06/23/2024 5:56 PM EDT [facility] [place] [address] [place] [address] CT Scan Report Signed Patient: Melida Hermosillo MR#: [id number] 6 : 1940 Acct:[id number] Age/Sex: 84 / F ADM Date: 06/23/24 Loc: Room: Type: [facility] RCR Attending Dr: Jack Christianson II DO Copies to: Jack Christianson II, DO Ordering Provider: Jack Christianson II, DO Date of Service: 06/23/24 CT/CT chest w con: C34.90 - Malignant neoplasm of unspecified part of unspec... CT chest w con 06/23/2024 2:51 PM SIGN AND SYMPTOMS: Lung cancer, restaging CONTRAST: 90 mL of intravenous Isovue-300 TECHNIQUE: Multidetector CT axial slices of the chest were obtained with IV contrast. Multiplanar reformats were performed and viewed on a separate workstation and reviewed to further define anatomy and possible pathology. CT was performed with one or more of the following dose reduction techniques: Automated exposure control, adjustment of the mA and/or kV according to patient size, or use of iterative reconstruction technique. COMPARISON: 10/29/2023. FINDINGS: Lower neck: Thyroid gland within normal limits, no supraclavicle adenopathy. Vessels: Atherosclerotic changes are noted in the thoracic aorta, origins of great vessels, and within the coronary arteries. There is no evidence of pulmonary embolism. Mediastinum and Pat: Similar soft tissue prominence is noted in the right hilum showing no significant interval change. No enlarged mediastinal lymph nodes. Heart: Normal size. No pericardial effusion. Airways: Within normal limits Lungs: Perihilar consolidation is noted anteriorly, similar to the prior exam. There is scarring in the left perihilar region extending into the lingula similar to the prior exam. Pleura: Within normal limits. Chest Wall: There is redemonstration of a partially calcified structure within the left breast showing no significant interval change. Upper Abdomen: There is a 2.1 cm nodule in the left adrenal gland which is unchanged. There is hypoattenuation of the liver parenchyma suggesting hepatic steatosis. Uncomplicated colonic diverticula are noted. Bones: Degenerative changes are noted in the thoracic spine. CT/CT chest w con Procedure Note Scar Lawson MD - 06/23/2024 [facility] [place] [address] [place] [address] CT Scan Report Signed Patient: Britt Hermosillo#: [id number] 6 : 1Acct:[id number] Age/Sex: 84 / FADM Date: 06/23/24 Loc: Room:Type: [facility] Attending Dr: Jack Christianson II DO Copies to: Jack Christianson II, DO Ordering Provider: Jack Christianson II, DO Date of Service: 06/23/24 CT/CT chest w con: C34.90 - Malignant neoplasmof unspecified part of unspec... CT chest w con 06/23/2024 2:51 PM SIGN AND SYMPTOMS: Lung cancer, restaging CONTRAST: 90 mL of intravenous Isovue-300 TECHNIQUE: Multidetector CT axial slices of the chest were obtained withIV contrast. Multiplanar reformats were performed and viewed on a separate workstation and reviewedto further define anatomy and possible pathology. CT was performed with one or more of the followingdose reduction techniques: Automated exposure control, adjustment of the mA and/or kVaccording to patient size, or use of iterative reconstruction technique. COMPARISON: 10/29/2023. FINDINGS: Lower neck: Thyroid gland within normal limits, no supraclavicleadenopathy. Vessels: Atherosclerotic changes are noted in the thoracic aorta, originsof great vessels, and within the coronary arteries. There is no evidence of pulmonary embolism. Mediastinum and Pat: Similar soft tissue prominence is noted in the righthilum showing no significant interval change. No enlarged mediastinal lymph nodes. Heart: Normal size. No pericardial effusion. Airways: Within normal limits Lungs: Perihilar consolidation is noted anteriorly, similar to the priorexam. There is scarring in the left perihilar region extending into the lingula similar to the priorexam. Pleura: Within normal limits. Chest Wall: There is redemonstration of a partially calcified structurewithin the left breast showing no significant interval change. Upper Abdomen: There is a 2.1 cm nodule in the left adrenal gland which isunchanged. There is hypoattenuation of the liver parenchyma suggesting hepatic steatosis.Uncomplicated colonic diverticula are noted. Bones: Degenerative changes are noted in the thoracic spine. CT/CT chest w con IMPRESSION: No significant interval change. Perihilar scarring/opacity isredemonstrated, right greater than left. No pathologically enlarged mediastinal or hilar lymph nodes. There is a 2.1 cm nodule in the left adrenal gland which is unchanged. There is hypoattenuation of the liver parenchyma suggesting hepaticsteatosis. Uncomplicated colonic diverticula are noted. Impression dictated by: Scar Lawson M.D.06/23/2024 5:53 PM Dictation Location: [place] [address] Transcribed By: [facility] 06/23/24 2162 Dictated By: Scar Lawson II, MD 06/23/24 7164 Signed By: <Electronically signed by Scar Lawson II, MD inOV> 06/23/241752 Jack Christianson DO IMG CT PROCEDURES Final R esult documented in this encounter Visit Diagnoses Not on filedocumented in this encounter
--- OUTSIDE RECORDS SUMMARY | 2025-06-02 10:42 | XMS_ITS | Encounter Summary ---
Author Organization [facility] Address [address] [place] [address] Phone Care Team Providers Care Dental Professional Name Role Phone Wong Lacey DO Primary Care Provider [phone] Wong Lacey DO Primary Care Provider [phone] Encounter Details Date Type Department Care Team (Late st Contact Info) Description 01/30/2023 Orders Only [facility] [address] [place] [address] Conversion, Onbase Social History Tobacco Use Types [...] Description 06/11/2025 1:50 PM EDT Office Visit [facility] [address] [address] Khoi Harris MD 703 [facility] [address] [place] [address] Scheduled Orders Name Type Priority Associated Diagnoses Orde r Schedule OUTSIDE LAB SCAN Lab Ordered: 01/30/2023 documented as of this encounter Visit Diagnoses Not on filedocumented in this encounter Additional Health Concerns Assessment Noted Time PHQ-9 Depression Total Score: 16 022 11:33 AM EDT documented as of this encounter Care Teams Dental Professional Relationship Specialty Start Date End Date Wong Lacey DO PCP - General 01/04/23 03/15/25 Wong Lacey DO [address] [place] [address] PCP - General Internal Medicine 03/16/25 documented as of this encounter
--- OUTSIDE RECORDS SUMMARY | 2025-06-02 10:42 | XMS_ITS | Clinical Summary ---
Author Organization [facility] Address [address] [place], [place] [id number] Care Team Providers Care Pattern Hanger Name Role Phone Wong Lacey Primary Care Provider [phone] Allergies Active Allergy Reactions Criticality Noted Date Comments Clindamycin Hives 01/16/2017 Allergic to most antibiotics ending in mycin.??? Medications gabapentin (NEURONTIN) 100 mg capsule Take 100 mg by mouth three times daily. Active Levothyroxine 112 mcg cap Take 112 mcg by mouth once daily. Active hydroCHLOROthia zide (HYDRODIURIL, ESIDRIX) 25 mg tablet Take 25 mg by mouth once daily. Active losartan (COZAAR) 50 mg tablet Take 50 mg by mouth once daily. As directed Active albuterol HFA (PROVENTIL HFA, VENTOLIN HFA) 90 mcg/actuation inhaler Inhale 2 Puffs as instructed every 6 hours as needed. Active fluticasone-joselyn meterol (ADVAIR DISKUS) 100-50 mcg/dose inhaler Inhale 1 Puff as instructed twice daily. Active levothyroxine (SYNTHROID) 112 mcg tablet Take 112 mcg by mouth once daily. 8 Active levothyroxine (SYNTHROID) 125 mcg tablet Take 125 mcg by mouth. As directed 8 Active metoprolol succinate ER (TOPROL XL) 25 mg 24 hr tablet Take 25 mg by mouth once daily. 8 Active mirtazapine (REMERON) 15 mg tablet Take 15 mg by mouth as needed. 8 Active promethazine (PHENERGAN) 12.5 mg tablet Take 12.5 mg by mouth every 6 hours as needed. 8 Active Benazepril-Hydr ochlorothiazide 20-25 mg per tablet 9 Active omeprazole (PRILOSEC) 20 mg capsule Take 1 capsule by mouth twice daily. 60 capsule 9 Active Additional Information Patient not taking.Reported on 11/16/2022 amLODIPine (NORVASC) 5 mg tablet amlodipine 5 mg tablet Active amiodarone (PACERONE) 200 mg tablet 2 Active LORazepam (ATIVAN) 0.5 mg 2 Active torsemide (DEMADEX) 20 mg tablet Take 20 mg by mouth once daily. Active busPIRone (BUSPAR) 15 mg tablet Buspirone Active 7.5 MG PO Twice daily August 09, 2022 11:00pm 2 Active heparin 100 unit/mL injectionIndica tions:Diplopia NURSING USE ONLY: USE FOR IMPLANTED VASCULAR ACCESS DEVICE (IVAD) FLUSH. AMBULATORY/OUTPA TIENT: PLEASE REORDER UPON HOSPITAL DISCHARGE May access implanted vascular access device (IVAD) as needed for treatment. Before de-accessing port, flush with 10-20ml normal saline and follow with 5 mL heparin (100 units/mL) (if no heparin allergy). De-access port on treatment completion. 5 mL 3 Active Active Problems Problem Noted Date Diagnosed Date Iron deficiency anemia 01/16/2018 History of breast cancer 01/16/2017 Family History Medical History Relation Comments Cataract Father Hypertension Father Cancer Mother Cataract Mother Hypertension Mother Cataract Sister Relation Status Comments Father Mother Sister Social History Tobacco Use Types Packs/Day Years Used Date Smoking Tobacco: Former Smokeless Tobacco: Never Tobacco Cessation:Counseling Given: Not Answered Alcohol Use Standard Drinks/Week Comments Yes 0 (1 standard drink = 0.6 oz pur e alcohol) rare Area Deprivation Index Answer Date Bruno rded National Score (1-100), lower number is lower ri sk 61 11/16/2022 State Score (1-10), lower number is lower risk N ot on file 11/16/2022 Data from: https://www.neighborhoodatlas.medicine.[facility].edu/. Last address used for calculation [address] 11/16/2022 Comments No Sex and Gender Information Value Date Recorded Sex Assigned at Not on file Legal Sex Female 8:38 AM EST Gender Identity Not on file Sexual Orientation Not on file Last Filed Vital Signs Vital Sign Reading Time Taken Comments Blood Pressure 171/61 01/22/2019 2:45 PM EDT Pulse 73 01/22/2019 2:45 PM EDT Temperature 36.4 C (97.6 F) 01/22/2019 2:45 PM EDT Respiratory Rate 18 01/22/2019 2:45 PM EDT Oxygen Saturation 98% 01/22/2019 2:45 PM EDT Inhaled Oxygen Concentration - - Weight 100.1 kg (220 lb 9.6 oz) 01/22/2019 2:45 PM EDT Height 163.8 cm (5' 4.49 ) 01/22/2019 2:45 PM ED T Body Mass Index 37.29 01/22/2019 2:45 PM EDT Plan of Treatment Health Maintenance Due Date Last Done Comments Anxiety Screening 1958 Depression Screening 1958 Shingrix Vaccine (1 of 2) 1991 Bone Density Screening 2006 RSV Vaccine (1 - 1-dose 75+ series) 2016 Diabetes Screening 05/17/2024 05/17/2021, 0 05/16/2021, 01/16/2018 Advance Directive Discussion 10/15/2024 Influenza Vaccine (#1) 2025 2, 07/20/2021, 09/08/2020, Additional history exists DTaP,Tdap,Td Vaccine (2 - Td or Tdap) 11/14/2031 11/14/2021 Pneumococcal Vaccine: 50+ Completed 2017, 10/24/2016, 07/17/2016 Procedures Procedure Name Priority Date/Time Associated Diagnosis Comments BASIC METABOLIC PANEL Routine 01/16/2018 1:32 PM EDT History of breast cancer from Last 3 Months or Most Recently Relevant to Health Maintenance Results * (ABNORMAL) BASIC METABOLIC PNL (01/16/2018 1:32 PM EDT) Glucose 102(H) 74 - 99 mg/dL 01/17/2018 5:24 AM EDT [facility] Comment: The [place] Diabetes Association (ADA) provides guidance for cutoff values for fasting glucose and random glucose. The ADA defines fasting as no caloric intake for at least 8 hours. Fasting plasma glucose results between 100 to 125 mg/dL indicate increased risk for diabetes (prediabetes). Fasting plasma glucose results greater than or equal to 126 mg/dL meet the criteria for diagnosis of diabetes. In the absence of unequivocal hyperglycemia, results should be confirmed by repeat testing. In a patient with classic symptoms of hyperglycemia or hyperglycemic crisis, random plasma glucose results greater than or equal to 200 mg/dL meet the criteria for diagnosis of diabetes. Reference: Standards of Medical Care in Diabetes 2016, [place] Diabetes Association. Diabetes Care. 2016.39(Suppl 1). BUN 17 7 - 21 mg/dL 01/17/2018 5:24 AM [facility] Creatinine 0.82 0.58 - 0.96 mg/dL 01/17/2018 5:24 AM [facility] Sodium 141 136 - 144 mmol/L 01/17/2018 5:24 AM [facility] Potassium 4.1 3.7 - 5.1 mmol/L 01/17/2018 5:24 AM [facility] Chloride 102 97 - 105 mmol/L 01/17/2018 5:24 AM [facility] CO2 25 22 - 30 mmol/L 01/17/2018 5:24 AM [facility] Anion Gap 14 9 - 18 mmol/L 01/17/2018 5:24 AM [facility] Calcium 8.7 8.5 - 10.2 mg/dL 01/17/2018 5:24 AM [facility] eGFR- >60 01/17/2018 5:24 AM [facility] eGFR-All Other Races >60 . 01/17/2018 5:24 AM [facility] Comment: eGFR (Estimated GFR) Units of measure: mL/min/1.73 meters squared eGFR is derived from the reexpressed MDRD Study equation using the following parameters: serum creatinine, age, gender and race. The creatinine assay has been calibrated to be traceable to IDMS. An eGFR <60 mL/min/1.73m2 for >3 months is consistent with chronic kidney disease. Refer to KDOQI guidelines for clinical interpretation. In patients with unstable renal function, e.g. those with acute kidney injury, the eGFR may not accurately reflect actual GFR. Blood specimen (specimen) 01/16/2018 1:32 PM EDT 01/16/2018 1:34 PM EDT us Jack Christianson DO LABORATORY Final Res ult [facility] [address] [place] [address] from Last 3 Months or Most Recently Relevant to Health [place] [address] [employer] Care Teams Pattern Hanger Relationship Specialty Start Date End Date Wong Lacey DO PCP - General Internal Medicine 01/02/17
--- OUTSIDE RECORDS SUMMARY | 2025-06-02 10:42 | XMS_ITS | Encounter Summary ---
Author Organization [facility] Address [address] [place] [address] Phone Care Team Providers Care Teacher Of The Handicapped Name Role Phone Wong Lacey DO Primary Care Provider [phone] Wong Lacey DO Primary Care Provider [phone] Encounter Details Date Type Department Care Team (Late st Contact Info) Description 11/10/2024 Scanned Document [facility] [address] [place] [id number] Scanning, Generic Provider Social History Tobacco Use Types Packs/Day Years Used Date Smoking Tobacco: Former Cigarettes Q uit: 2000 Smokeless Tobacco: Never Alcohol Use Standard Drinks/Week Comments Yes 0 (1 standard drink = 0.6 oz pur e alcohol) social PHQ-2 Answer Date Recorded Patient Health Questionnaire-2 [...] Description 06/11/2025 1:50 PM EDT Office Visit [facility] 703 [facility] [address] [place] [address] Khoi Harris MD 703 [facility] [address] [place] [address] documented as of this encounter Visit Diagnoses Not on filedocumented in this encounter Additional Health Concerns Assessment Noted Time PHQ-9 Depression Total Score: 16 022 11:33 AM EDT A fall risk assessment has been complete d for the patient 03/05/2024 2:00 PM EDT documented as of this encounter Care Teams Teacher Of The Handicapped Relationship Specialty Start Date End Date Wong Lacey DO PCP - General 01/04/23 03/15/25 Wong Lacey DO [address] [place] [address] PCP - General Internal Medicine 03/16/25 documented as of this encounter
--- OUTSIDE RECORDS SUMMARY | 2025-06-02 10:42 | XMS_ITS | Encounter Summary ---
Author Organization [facility] Address [address] [place] [address] Phone Care Team Providers Care Digital Traffic Coordinator Name Role Phone Wong Lacey DO Primary Care Provider [phone] Wong Lacey DO Primary Care Provider [phone] Encounter Details Date Type Department Care Team (Late st Contact Info) Description 07/31/2018 Orders Only [facility] [address] [place] [address] Conversion, Onbase Social History Tobacco Use Types [...] Description 06/11/2025 1:50 PM EDT Office Visit [facility] 703 [facility] [address] [place] [address] Khoi Harris MD 703 [facility] [address] [place] [address] Scheduled Orders Name Type Priority Associated Diagnoses Orde r Schedule OUTSIDE LAB SCAN Lab Ordered: 07/31/2018 documented as of this encounter Visit Diagnoses Not on filedocumented in this encounter Care Teams Digital Traffic Coordinator Relationship Specialty Start Date End Date Wong Lacey DO PCP - General 3/23/23 6/1/25 Wong Lacey DO [address] [place] [address] PCP - General Internal Medicine 03/16/25 documented as of this encounter
--- OUTSIDE RECORDS SUMMARY | 2025-06-02 10:42 | XMS_ITS | Encounter Summary ---
Author Organization [facility] Address [address] [place] [address] Phone Care Team Providers Care Iron And Steel Work Supervisor Name Role Phone Wong Lacey DO Primary Care Provider [phone] Wong Lacey DO Primary Care Provider [phone] Encounter Details Date Type Department Care Team (Late st Contact Info) Description 05/03/2022 Orders Only [facility] [address] [place] [address] Conversion, Onbase Social History Tobacco Use Types [...] Description 06/11/2025 1:50 PM EDT Office Visit [facility] 703 [facility] [address] [place] [address] Khoi Harris MD 703 [facility] [address] [place] [address] Scheduled Orders Name Type Priority Associated Diagnoses Orde r Schedule OUTSIDE LAB SCAN Lab Ordered: 05/03/2022 documented as of this encounter Visit Diagnoses Not on filedocumented in this encounter Care Teams Iron And Steel Work Supervisor Relationship Specialty Start Date End Date Wong Lacey DO PCP - General 01/04/23 03/15/25 Wong Lacey DO [address] [place] [address] PCP - General Internal Medicine 03/16/25 documented as of this encounter
--- OUTSIDE RECORDS SUMMARY | 2025-06-02 10:42 | XMS_ITS | Encounter Summary ---
Author Organization [facility] Address [address] [place] [address] Phone Care Team Providers Care Station Engineer Main Line Name Role Phone Wong Lacey DO Primary Care Provider [phone] Wong Lacey DO Primary Care Provider [phone] Encounter Details Date Type Department Care Team (Late st Contact Info) Description 04/30/2024 Scanned Document [facility] [address] [place] [address] Scanning, Generic Provider Social History Tobacco Use [...] Description 06/11/2025 1:50 PM EDT Office Visit [facility] 703 [facility] [address] [place] [address] Khoi Harris MD 703 [facility] [address] [place] [address] documented as of this encounter Visit Diagnoses Not on filedocumented in this encounter Additional Health Concerns Assessment Noted Time PHQ-9 Depression Total Score: 16 022 11:33 AM EDT A fall risk assessment has been complete d for the patient 03/05/2024 2:00 PM EDT documented as of this encounter Care Teams Station Engineer Main Line Relationship Specialty Start Date End Date Wong Lacey DO PCP - General 01/04/23 03/15/25 Wong Lacey DO [address] [place] [address] PCP - General Internal Medicine 03/16/25 documented as of this encounter
--- OUTSIDE RECORDS SUMMARY | 2025-06-02 10:42 | XMS_ITS | Clinical Summary ---
Author Organization [facility] Address [address] [place] [address] Phone Care Team Providers Care Utility Division Project Manager Name Role Phone Wong Lacey Primary Care Provider [phone] Allergies Active Allergy Reactions Criticality Noted Date Comments Erythromycin Hives 11/30/2023 Medications busPIRone (Buspar) 7.5 mg tablet Take 1 tablet (7.5 mg) by mouth 2 times a day. 3 Active Advair Diskus 250-50 mcg/dose diskus inhaler Inhale. 1 Active levothyroxine (Synthroid, Levoxyl) 112 mcg tablet Take 1 tablet (112 mcg) by mouth. Sunday 1 Active levothyroxine (Synthroid, Levoxyl) 125 mcg tablet Take 1 tablet (125 mcg) by mouth. Sunday 1 Active LORazepam (Ativan) 0.5 mg tablet Take 1 tablet (0.5 mg) by mouth if needed. 1-2 1 Active vit C/E/Zn/coppr/lute in/zeaxan (PRESERVISION AREDS-2 ORAL) Take 2 tablets by mouth once daily. Active evening primrose oil 500 mg Take 1 capsule (500 mg) by mouth 2 times a day. Active amiodarone (Pacerone) 100 mg tabletIndications :Persistent atrial fibrillation (Multi) Take 1 tablet (100 mg) by mouth every other day. 5 03/11/20 26 Active amLODIPine (Norvasc) 2.5 mg tablet Take 1 tablet (2.5 mg) by mouth once daily. Active spironolactone (Aldactone) 25 mg tabletIndications :Edema, lower extremity,Essenti al hypertension, benign TAKE 1 TABLET BY MOUTH DAILY 90 tablet 3 Active Active Problems Problem Noted Date Diagnosed Date Persistent atrial fibrillation (Multi) Former smoker 12/02/2024 COPD (chronic obstructive pulmonary disease) (Mu lti) 11/30/2023 Essential hypertension 11/30/2023 GI bleed 11/30/2023 Hypokalemia 11/30/2023 Hypothyroidism 11/30/2023 SOB (shortness of breath) on exertion 11/30/2023 Squamous cell carcinoma lung 11/30/2023 High risk medication use 11/30/2023 Resolved Problems Problem Noted Date Diagnosed Date Resolved Date Edema, lower extremity 11/30/202312/02 Paroxysmal atrial fibrillation (Multi) 11/30/2023 12/02/2024 Screening for hyperlipidemia 11/30/2023 12/02/2024 Encounters Date Type Department Care Team Description 03/27/[address] [address] Yolanda Sherwood RN 03/27/[address] [address] Ron Cadena MD Edema, lower extremity; Essential hypertension, benign 03/24/2025 1:00 PM EDT Ancillary Procedure [address] [address] Yolanda Sherwood RN Persistent atrial fibrillation (Multi) 03/24/2025 Travel 03/06/[address] [phone] Yolanda Sherwood RN Persistent atrial fibrillation (Multi) from Last 3 Months Family History Medical History Relation Name Comments Breast cancer Mother Breast cancer Sister Diabetes Sister Relation Name Status Comments Mother Sister Social History Tobacco Use Types Packs/Day Years Used Date Smoking Tobacco: Former Cigarettes Q uit: 1999 Smokeless Tobacco: Never Alcohol Use Standard Drinks/Week [...] Sign Reading Time Taken Comments Blood Pressure 124/72 03/24/2025 1:20 PM EDT Pulse 53 03/24/2025 1:20 PM EDT Temperature - - Respiratory Rate - - Oxygen Saturation - - Inhaled Oxygen Concentration - - Weight 88.9 kg (196 lb) 03/24/2025 1:20 PM EDT Height 167.6 cm (5' 6 ) 03/24/2025 1:20 PM EDT Body Mass Index 31.64 03/24/2025 1:20 PM EDT Plan of Treatment Upcoming Encounters Date Type Department Care Team (Late st Contact Info) Description 06/11/2025 1:50 PM EDT Office Visit [facility] [address] [phone] Khoi Harris MD 703 [facility] [address] [place] [address] Health Maintenance Due Date Last Done Comments Lipid Panel 1940 TSH Level 1940 Diabetes Screening 1959 Bone Density Scan 2006 Zoster Vaccines (1 of 2) 05/10/2015 03/15/2015, 10/2014 Medicare Annual Wellness Visit (AWV) 09/20/2023 09/19/2022 COVID-19 Vaccine ( season) 2024 06/23/2021, 01/10/2021, 12/10/2020, Additional history exists Influenza Vaccine (#1) 2025 , 06/22/2023, 08/15/2022, Additional history exists DTaP/Tdap/Td Vaccines (2 - Td or Tdap) 11/14/2031 11/14/2021 Irritable Bowel Syndrome Discontinued 07/20/2021 Pneumococcal Vaccine Completed 09/26/2023, 10/15/2017, 10/24/2016, Additional history exists RSV High Risk: (Elderly (60+) or Population) Completed 05/01/2024 HIB Vaccines Aged Out No longer eligi ble based on patient's age to complete this topic HPV Vaccines Aged Out No longer eligi ble based on patient's age to complete this topic Hepatitis A Vaccines Aged Out No long er eligible based on patient's age to complete this topic Hepatitis B Vaccines Aged Out No long er eligible based on patient's age to complete this topic IPV Vaccines Aged Out No longer eligi ble based on patient's age to complete this topic Meningococcal Vaccine Aged Out No raul martita eligible based on patient's age to complete this topic Rotavirus Vaccines Aged Out No longer eligible based on patient's age to complete this topic Procedures Procedure Name Priority Date/Time Associated Diagnosis Comments ECG 12-LEAD Routine 03/24/2025 12:57 PM EDT Persistent atrial fibrillation (Multi) BRONCHOSCOPY Routine 07/20/2021 7:51 AM EDT from Last 3 Months or Most Recently Relevant to Health Maintenance Results * ECG 12 Lead (03/24/2025 12:57 PM EDT) Narrative CPA - 03/24/2025 2:27 PM EDT Mild sinus bradycardia with heart rate 53 us Khoi Harris MD ECG ORDERABLES Final Resu lt CPA * Bronchoscopy (07/20/2021 7:51 AM EDT) Anatomical Region Laterality Modality Endoscopy 07/20/2021 7:51 AM EDT Narrative 11/15/2022 1:10 PM EST Patient Name: Melida Hermosillo Procedure Date: 07/20/2021 7:51 AM Date of : 1940 Room: Bronchoscopy Room 1 Attending MD: Joan Richardson MD, [id number] Procedure: Bronchoscopy Indications: Mediastinal staging of confirmed lung cancer Providers: Joan Richardson MD (Doctor), Jazmine Coleman RN (Nurse), Sandrine Romero (Nurse), Francis Martinez MD (Fellow) Referring MD: Jack Christianson (Referring MD) Medicines: General Anesthesia, See the Anesthesia note for documentation of the administered medications Complications: No immediate complications Procedure: Pre-Anesthesia Assessment: - A History and Physical has been performed. Patient meds and allergies have been reviewed. The risks and benefits of the procedure and the sedation options and risks were discussed with the patient. All questions were answered and informed consent was obtained. Patient identification and proposed procedure were verified prior to the procedure by the physician, the nurse and the client technical specialist in the procedure room. Mental Status Examination: normal. Airway Examination: Please refer to anesthesia staff note. Respiratory Examination: clear to auscultation. CV Examination: normal. ASA Grade Assessment: III - A patient with severe systemic disease. After reviewing the risks and benefits, the patient was deemed in satisfactory condition to undergo the procedure. The anesthesia plan was to use general anesthesia. Immediately prior to administration of medications, the patient was re-assessed for adequacy to receive sedatives. The heart rate, respiratory rate, oxygen saturations, blood pressure, adequacy of pulmonary ventilation, and response to care were monitored throughout the procedure. The physical status of the patient was re-assessed after the procedure. - Time out done at 08:38 am. After obtaining informed consent, the therapeutic bronchoscope was introduced through the mouth, via the endotracheal tube (the patient was intubated for the procedure) and advanced to the tracheobronchial tree of both lungs. Then, the linear ultrasound bronchoscope was introduced through the mouth, via the endotracheal tube (the patient was intubated for the procedure) and advanced to the tracheobronchial tree of both lungs. The procedure was accomplished without difficulty. The patient tolerated the procedure well. The total duration of the procedure was 29 minutes. Findings: The endotracheal tube is in good position. The trachea is of normal caliber. The ron is sharp. The tracheobronchial tree was examined to at least the first subsegmental level. Bronchial mucosa and anatomy are normal; there are no endobronchial lesions, and no secretions. The flexible bronchoscope was removed from the airway, and exchanged for the curvilinear EBUS bronchoscope. A systematic EBUS staging examination of the bilateral rosa and mediastinum was performed, as documented below. Lymph Nodes: Lymph node sizing was performed via endobronchial ultrasound for known non-small cell lung cancer. Sampling by transbronchial needle aspiration was also performed using an [employer] Mediai[employer]ot 22 gauge needle in the subcarinal mediastinum (level 7) and sent for routine cytology. - The 11L (interlobar) node was 2.7 mm by EBUS. Sampling was not done due to size criteria (less than 5 mm). - The 10L (hilar) node was not visualized by EBUS. Sampling was not done (the node was not visualized). - The 4L (lower paratracheal) node was 2.8 mm by EBUS. Sampling was not done due to size criteria (less than 5 mm). - The 2L (upper paratracheal) node was not visualized by EBUS. Sampling was not done (the node was not visualized). Lymph Nodes: Lymph node sizing was performed via endobronchial ultrasound. Sampling by transbronchial needle aspiration was also performed using an Olympus ViziShot 22 gauge needle. - The 7 (subcarinal) node was 12.4 mm by EBUS. Four samples with the needle were obtained. - The 2R (upper paratracheal) node was not visualized by EBUS. Sampling was not done (the node was not visualized). - The 4R (lower paratracheal) node was 4.5 mm by EBUS. Sampling was not done due to size criteria (less than 5 mm). - The 10R (hilar) node was 3.4 mm by EBUS. Sampling was not done due to size criteria (less than 5 mm). - The 11Rs (superior interlobar) node was 4.2 mm by EBUS. Sampling was not done due to size criteria (less than 5 mm). - The 11Ri (inferior interlobar) node was 3.5 mm by EBUS. Sampling was not done due to size criteria (less than 5 mm). Lymph Nodes: Rapid On-Site Evaluation (MARCY): Preliminary cytology was suggestive of atypical cells (final results are pending) in the subcarinal mediastinum (level 7). Estimated Blood Loss: Estimated blood loss was minimal. Impression: - The airway examination was normal. - Lymph node sizing and sampling was performed. - Lymph node sizing and sampling was performed. - Rapid On-Site Evaluation (MARCY): Preliminary cytology was suggestive of atypical cells in node level 7 (final results are pending). Recommendation: - The patient will be observed post-procedure, until all discharge criteria are met. - Await cytology results. - Follow up with referring physician as previously scheduled. Procedure Code(s): --- Professional --- 66056, Bronchoscopy, rigid or flexible, including fluoroscopic guidance, when performed; with endobronchial ultrasound (EBUS) guided transtracheal and/or transbronchial sampling (eg, aspiration[s]/biopsy[ies]), one or two mediastinal and/or hilar lymph node stations or structures Diagnosis Code(s): --- Professional --- R09.89, Other specified symptoms and signs involving the circulatory and respiratory systems C34.90, Malignant neoplasm of unspecified part of unspecified bronchus or lung CPT copyright 2021 [employer]. All rights reserved. The codes documented in this report are preliminary and upon bellows filler review may be revised to meet current compliance requirements. Attending Participation: I was present and participated during the entire procedure, including non-branch portions. MD Joan Esquivel MD 07/20/2021 10:58:20 AM This report has been signed electronically. Number of Addenda: 0 Note Initiated On: 07/20/2021 7:51 AM Patient Profile: This is an 81 year old female. Refer to note in patient chart for documentation of history and physical. The attending physician independently verified the history and physical at 0800 on 07/20/21. The patient's ECOG performance status grade is 2 - ambulatory and capable of all self care but unable to carry out any work activities; up and about more than 50% of waking hours. Procedure Note Joan Richardson MD - 12/03/2024 Patient Name: Melida Hermosillo Procedure Date: 07/20/2021 7:51 AM Date of : 1940 Room: Bronchoscopy Room 1 Attending MD: Joan Richardson MD, [id number] Procedure: Bronchoscopy Indications: Mediastinal staging of confirmed lung cancer Providers: Joan Richardson MD (Doctor), Jazmine Coleman RN (Nurse), Sandrine Romero (Nurse), Francis Martinez MD (Fellow) Referring MD: Jack Christianson (Referring MD) Medicines: General Anesthesia, See the Anesthesia note for documentation of the administered medications Complications: No immediate complications Procedure: Pre-Anesthesia Assessment: - A History and Physical has been performed.Patient meds and allergies have been reviewed. The risksand benefits of the procedure and the sedation optionsand risks were discussed with the patient. Allquestions were answered and informed consent was obtained. Patient identification and proposed procedure were verified prior to the procedure by the physician,the nurse and the client technical specialist in the procedure room. Mental Status Examination: normal. AirwayExamination: Please refer to anesthesia staff note. Respiratory Examination: clear to auscultation. CV Examination: normal. ASA Grade Assessment: III - A patient with severe systemic disease. After reviewing the risksand benefits, the patient was deemed in satisfactory condition to undergo the procedure. The anesthesia plan was to use general anesthesia. Immediatelyprior to administration of medications, the patient was re-assessed for adequacy to receive sedatives. The heart rate, respiratory rate, oxygen saturations, blood pressure, adequacy of pulmonary ventilation,and response to care were monitored throughout the procedure. The physical status of the patient was re-assessed after the procedure. - Time out done at 08:38 am. After obtaining informed consent, the therapeutic bronchoscope was introduced through the mouth, viathe endotracheal tube (the patient was intubated forthe procedure) and advanced to the tracheobronchialtree of both lungs. Then, the linear ultrasound bronchoscope was introduced through the mouth, viathe endotracheal tube (the patient was intubated forthe procedure) and advanced to the tracheobronchialtree of both lungs. The procedure was accomplishedwithout difficulty. The patient tolerated the procedurewell. The total duration of the procedure was 29minutes. Findings: The endotracheal tube is in good position. The trachea is of normal caliber. The ron is sharp. The tracheobronchial tree was examinedto at least the first subsegmental level. Bronchial mucosa and anatomyare normal; there are no endobronchial lesions, and no secretions. The flexible bronchoscope was removed from the airway, and exchangedfor the curvilinear EBUS bronchoscope. A systematic EBUS stagingexamination of the bilateral rosa and mediastinum was performed, as documentedbelow. Lymph Nodes: Lymph node sizing was performed via endobronchial ultrasound for known non-small cell lung cancer. Sampling by transbronchial needle aspiration was also performed using an [employer] Media[employer]ot 22 gauge needle in the subcarinal mediastinum (level 7) and sent for routine cytology. - The 11L (interlobar) node was 2.7 mm by EBUS. Sampling was not done due to size criteria (less than 5 mm). - The 10L (hilar) node was not visualized by EBUS. Sampling was notdone (the node was not visualized). - The 4L (lower paratracheal) node was 2.8 mm by EBUS. Sampling wasnot done due to size criteria (less than 5 mm). - The 2L (upper paratracheal) node was not visualized by EBUS.Sampling was not done (the node was not visualized). Lymph Nodes: Lymph node sizing was performed via endobronchial ultrasound. Sampling by transbronchial needle aspiration was also performed using an Olympus ViziShot 22 gauge needle. - The 7 (subcarinal) node was 12.4 mm by EBUS. Four samples with the needle were obtained. - The 2R (upper paratracheal) node was not visualized by EBUS.Sampling was not done (the node was not visualized). - The 4R (lower paratracheal) node was 4.5 mm by EBUS. Sampling wasnot done due to size criteria (less than 5 mm). - The 10R (hilar) node was 3.4 mm by EBUS. Sampling was not done dueto size criteria (less than 5 mm). - The 11Rs (superior interlobar) node was 4.2 mm by EBUS. Samplingwas not done due to size criteria (less than 5 mm). - The 11Ri (inferior interlobar) node was 3.5 mm by EBUS. Samplingwas not done due to size criteria (less than 5 mm). Lymph Nodes: Rapid On-Site Evaluation (MARCY): Preliminary cytologywas suggestive of atypical cells (final results are pending) in the subcarinal mediastinum (level 7). Estimated Blood Loss: Estimated blood loss was minimal. Impression: - The airway examination was normal. - Lymph node sizing and sampling was performed. - Lymph node sizing and sampling was performed. - Rapid On-Site Evaluation (MARCY): Preliminary cytology was suggestive of atypical cells in node level 7 (final results are pending). Recommendation: - The patient will be observed post-procedure,until all discharge criteria are met. - Await cytology results. - Follow up with referring physician as previously scheduled. Procedure Code(s): --- Professional --- 58188, Bronchoscopy, rigid or flexible, including fluoroscopic guidance, when performed; with endobronchial ultrasound (EBUS) guidedtranstracheal and/or transbronchial sampling (eg, aspiration[s]/biopsy[ies]), one or two mediastinal and/or hilar lymph node stations or structures Diagnosis Code(s): --- Professional --- R09.89, Other specified symptoms and signsinvolving the circulatory and respiratory systems C34.90, Malignant neoplasm of unspecified part of unspecified bronchus or lung CPT copyright 2021 [employer]. All rights reserved. The codes documented in this report are preliminary and upon bellows filler reviewmay be revised to meet current compliance requirements. Attending Participation: I was present and participated during the entire procedure, including non-branch portions. MD Joan Esquivel MD 07/20/2021 10:58:20 AM This report has been signed electronically. Number of Addenda: 0 Note Initiated On: 07/20/2021 7:51 AM Patient Profile: This is an 81 year old female. Refer to note in patient chart for documentation of history and physical. The attending physician independently verified the history and physical at 0800 on 07/20/21.The patient's ECOG performance status grade is 2 - ambulatory and capableof all self care but unable to carry out any work activities; up andabout more than 50% of waking hours. Jack Christianson DO ENDOSCOPY PROCEDURE ORDER KRISTEN Edited Result - Final from Last 3 Months or Most Recently Relevant to Health [place] [address] [place] [address] [employer] Care Teams Utility Division Project Manager Relationship Specialty Start Date End Date Wong Lacey DO [address] [place] [address] PCP - General Internal Medicine 03/16/25
--- OUTSIDE RECORDS SUMMARY | 2025-06-02 10:42 | XMS_ITS | Encounter Summary ---
Author Organization [facility] Address [address] [place] [address] Phone Care Team Providers Care Manager Actuarial Name Role Phone Wong Lacey DO Primary Care Provider [phone] Wong Lacey DO Primary Care Provider [phone] Encounter Details Date Type Department Care Team (Late st Contact Info) Description 08/18/2024 Scanned Document [facility] [address] [place] [id number] Scanning, Generic Provider Social History Tobacco Use [...] Description 06/11/2025 1:50 PM EDT Office Visit [facility] [address] [facility] [address] [place] [address] Khoi Harris MD 703 [facility] [place] [address] Scheduled Orders Name Type Priority Associated Diagnoses Orde r Schedule Pulmonary function testing PFT Ordered: 08/18/2024 documented as of this encounter Visit Diagnoses Not on filedocumented in this encounter Additional Health Concerns Assessment Noted Time PHQ-9 Depression Total Score: 16 022 11:33 AM EDT A fall risk assessment has been complete d for the patient 03/05/2024 2:00 PM EDT documented as of this encounter Care Teams Manager Actuarial Relationship Specialty Start Date End Date Wong Lacey DO PCP - General 01/04/23 03/15/25 Wong Lacey DO [address] [facility] [place] [address] PCP - General Internal Medicine 03/16/25 documented as of this encounter
--- OUTSIDE RECORDS SUMMARY | 2025-06-02 10:42 | XMS_ITS ---
Author Organization [employer] [facility] [employer] Address [id number] [address] [place] [address] Care Team Providers Care Envelope Folder Name Role Phone Wong Lacey DO Primary Care Provider [phone] Active Problems Problem Noted Date Diagnosed Date Port-A-Cath in place 08/21/2024 Lung cancer 08/21/2024 Community acquired pneumonia of right lower lobe of lung 05/16/2021 Current Treatment and Therapy Plans Adult oncology/infusion center flush orders* Plan Start Date:08/25/2024 Plan Provider:Jack Christianson DO Linked Problems Malignant neoplasm of lung, unspecified laterality, unspecified part of lung ([facility])Port-A-Cath in place Treatment Medications No medications scheduled. Past Treatment and Therapy Plans No past plan information found.
[2025-06-02 11:05] LABS: Glucose Urine UA NEGATIVE (NEGATIVE)
[2025-06-02 12:14] LABS: Cast Seen? NONE SEEN #/LPF (NONE SEEN); Crystals Seen? None Seen #/HPF (None Seen)
--- OUTSIDE RECORDS SUMMARY | 2025-06-02 14:05 | XMS_ITS | CCD ---
Author Organization [facility] Care Team Providers Care Crematory Attendant Name Role Phone PHYSICIAN, DEFAULT Admitting Unavailable PHYSICIAN, DEFAULT Attending Unavailable Unknown, Referring Provider Unavailable Unav ailable Unavailable Unavailable DO Wong Espino Primary Care Provider [phone] MD Mane Ramirez Emergency Provider [phone] DO Wong Espino Attending Provider [phone] DO Bertha Christianson II Attending Provider Hiral Mccarty Referring Provider MD Joseluis Yee Admit Provider DO Wilfrido Argueta Other Provider DO Bertha Christianson II Other Provider DO Yfn Whiting Other Provider MD Ramona Lee Attending Provider MD Dorian Thomason Admit Provider MD Dorian Thomason Attending Provider JANI Parra Other Provider Unavailable JANI Shepherd Other Provider Unavailable JANI Tellez Other Provider Unavailable JANI Borden Other Provider Unavailable JANI Zamora Other Provider Unavailable JANI Shah Other Provider Unavailable JANI De La Vega Other Provider Unavailable MD Panfilo Arroyo Other Provider MD Ovidio Che Other Provider BACILIO Sims Other Provider DO Stanford Bee Other Provider Yoana, MD Dima Other Provider DO Shamir Haley Other Provider MD Yrn Kruse Other Provider MD Marlys Loja Other Provider MD Uvaldo Diop Other Provider Barby, ANP-BC Amanda Other Provider MD Edwar Trujillo Other Provider MD Jesus Stubbs Other Provider MD Bob Dangelo Other Provider MD Ramona Lee Other Provider DO Tapan Reyes Other Provider [phone] MD Shravan Gilbert Other Provider MD Ricco Priest Other Provider MD Imelda Rodarte Other Provider MD Omar Baires Other Provider Conchis, MARKET RISK SPECIALIST-C Tonya Lane Other Provider [phone] MD David Long Other Provider MD Agusto Elena Other Provider MD Hesham Bowman Other Provider Unavailable MD Luis Mcintosh Other Provider [phone] MD Aleah Solorio Other Provider MD Joseluis Yee Other Provider MD Tyron Jane Other Provider DO Montse Mccurdy Other Provider MD Charles Harris Other Provider DO Roger Baca Other Provider DO Francis Nash Other Provider [phone] BACILIO Patton Other Provider JANI Aceves Other Provider Unavailable BACILIO Brand Other Provider [phone] Kim Estrella Other Provider Unavailable DO Amira Millan Other Provider MD Angelica Spaulding Other Provider DO Laurie Olaf Jacob Other Provider Jacey ANP- Mary Other Provider BACILIO Crump Other Provider DO Wong Espino Primary Care Provider [phone] MD Uvaldo Diop Other Provider Unavailable DO Tapan Reyes Other Provider Unavailable MD Luis Mcintosh Other Provider Unavailable Deysiicz II, DO Bertha J Attending Provider [phone] [facility] Referring Provider [phone] Deysiicz II, DO Bertha J Attending Provider [phone] [facility] Referring Provider Deysiicz II, DO Bertha J Attending Provider [phone] [facility] Referring Provider Unavailable Unavailable Deysiicz II, DO Bertha J Attending Provider [facility] Referring Provider DO Wong Espino Primary Care Provider Meghan II, DO Bertha J Attending Provider [facility] Referring Provider DO Wong Espino Primary Care Provider Meghan II, DO Bertha J Attending Provider [facility] Referring Provider DO Wong Espino Primary Care Provider Meghan II, DO Bertha J Attending Provider [facility] Referring Provider DO Wong Espino Primary Care Provider DO Wong Espino Primary Care Provider [phone] MD Geoffrey Noel Attending Provider Meghan II, DO Bertha Lane [facility] Referring Provider DO Wong Espino Primary Care Provider MD Geoffrey Noel Attending Provider Meghan II, DO Bertha Lane Attending Provider [phone] [facility] Referring Provider MD Ron Cadena Attending Provider Meghan II, DO Bertha Lane [facility]ending [facility] Referring Provider MD Heidi Kuhn Referring Provider Meghan II, DO Bertha Lane [facility]ending [facility] Referring Provider Wong Espino DO Primary Care Provider JAISON MARS Referring Unavailable WONG ESPINO Primary Care Unavailable JAISON MARS Attending Unavailable WONG ESPINO Primary Care Unavailable Wong Espino Unavailable Wong Espino Unavailable UNKNOWN, PCP Primary Care Unavailable Ron Cadena Referring Unavailable Ron Cadena Attending Unavailable Ron Cadena Referring Unavailable Ron Cadena Attending Unavailable UNKNOWN, PCP Primary Care Unavailable Sherrie Melissa Unavailable DR WONG ESPINO Primary Care Unavailable HIRAL OSULLIVAN Attending Unavailable HIRAL OSULLIVAN Admitting Unavailable BERTHA CHRISTIANSON Consulting Unavailable HIRAL OSULLIVAN Consulting Unavailable RAOUL, DR BRAVO Attending Unavailable RAOUL, DR BRAVO Admitting Unavailable DUANE, DR MELGAR Consulting Unavailable SRINIVAS, DR BACK Primary Care Unavailable SRINIVAS, DR BACK Primary Care Unavailable SRINIVAS, DR BACK Consulting Unavailable SRINIVAS, DR BACK Attending Unavailable SRINIVAS, DR BACK Admitting Unavailable ZINA, DR ANGELICA Driver Consulting Unavailable SRINIVAS, DR BACK Primary Care Unavailable SRINIVAS, DR BACK Consulting Unavailable SRINIVAS, DR BACK Attending Unavailable SRINIVAS, DR BACK Admitting Unavailable Deysiicz II, DO Bertha Lane Attending Provider [phone] DO Wong Espino Primary Care Provider [phone] Unavailable Primary Care Provider Unavailabl e Deysiicz II, DO Bertha Lane Attending Provider [phone] [facility], DO Hiral Referring Provider DO Wong Espino Primary Care Provider Meghan II, DO Bertha Lane Attending Provider [facility], DO Hiral Referring Provider DO Wong Espino Primary Care Provider Wong Espino DO Primary Care Provider RON CADENA Referring Unavailable WONG ESPINO Primary Care Unavailable Deysiicz II, DO Bertha Lane Attending Provider [phone] [facility], DO Hiral Referring Provider DO Wong Espino Primary Care Provider Meghan II, DO Bertha Lane Attending Provider [phone] [facility], DO Hiral Referring Provider DO Wong Espino Primary Care Provider Meghan II, DO Bertha Lane Attending Provider [facility], DO Hiral Referring Provider DO Wong Espino Primary Care Provider Meghan II, DO Bertha Lane Attending Provider [facility], DO Hiral Referring Provider DO Wong Espino Primary Care Provider Meghan II, Bertha Lane Admitting Unavaila ble Wong Espino Primary Care Unavailable Meghan OLVERA, Bertha Lane Attending Unavaila ble Deysiicz IIBertha Admitting Unavaila ble [facility], Hiral Referring Unavailable Ball, Wong Primary Care Unavailable Meghan OLVERA, Bertha Lane Attending Unavaila ble Meghan II, DO Bertha Lane Attending Provider [facility], DO Hiral Referring Provider Ball, DO Wong Primary Care Provider Srinivas DOWong Primary Care Provider Meghan II, DO Bertha Lane Attending Provider [facility], DO Hiral Referring Provider Ball, DO Wong Primary Care Provider Srinivas DOWong Primary Care Provider Ron Cadena Admitting Unavailable McGuinn, Ron Law Referring Unavailable McGuinRon moyer Attending Unavailable McGuinn, Ron Law Referring Unavailable McGuinnRon Attending Unavailable Ron Cadena Admitting Unavailable Ball Wong CAUSEY Primary Care Provider Wong Espino DO Primary Care Provider HEIDI KUHN Attending Unavailable RON CADENA Referring Unavailable BALL, WONG E Primary Care Unavailable HEIDI KUHN Referring Unavailable BALL, WONG E Primary Care Unavailable RENE ASIF Attending Unavailable RENE ASIF Attending Unavailable Ball Wong CAUSEY Primary Care Provider Wong Espino DO Attending Provider [phone] BALL, WONG E Referring Unavailable BALL, WONG E Primary Care Unavailable BALL, WONG E Referring Unavailable BALL, WONG E Primary Care Unavailable BALL, WONG E Referring Unavailable BALL, WONG E Primary Care Unavailable BALL, WONG E Referring Unavailable BALL, WONG E Primary Care Unavailable BALL, WONG E Referring Unavailable BALL, WONG E Primary Care Unavailable BALL, WONG E Referring Unavailable BALL, WONG E Primary Care Unavailable HEIDI KUHN Referring Unavailable BALL, WONG E Primary Care Unavailable Ball Wong CAUSEY Primary Care Provider [phone] Wong Espino DO Attending Provider [phone] Allergies Allergy Classification Reported Allergen(s) Allergy Type Date of Onset Reaction(s) Facility (20 sources) Erythromycin; Translations: [erythromycin] Drug Allergy 05-16-20 21 [facility] (20 sources) Angiotensin Converting Enzyme (Radha) Inhibitors; Translations: [Radha Inhibitors] Allergy to substance 01-17-20 22 Unknown Reaction [facility] (20 sources) rivaroxaban; Translations: [rivaroxaban] Drug Allergy 01-17-20 22 Unknown Reaction [facility] (20 sources) tiotropium; Translations: [tiotropium] Drug Allergy 01-17-20 22 Unknown Reaction, Unknown [facility] (20 sources) erythromycin base; Translations: [Erythromycin Base] Allergy to substance 07-07-20 17 Unknown Reaction [facility] (12 sources) Clindamycin; Translations: [CLINDAMYCIN] Drug Allergy 01-17-20 17 [facility] (1 source) rivaroxaban Drug Allergy [facility] (1 source) Spiriva with HandiHaler Drug allergy (disorder) [facility] (4 sources) Angiotensin-convert ing enzyme inhibitor agent Drug allergy Unknown [facility] Other (8 sources) RADHA inhibitor use, contraindication Propensity to adverse reactions 04-09-20 19 Comment:advers e rxn/side effects [facility] Other (2 sources) Allergies Reconciled Propensity to adverse reactions Unknown [facility] Other (2 sources) patient allergy list reviewed by nurse or physicia Propensity to adverse reactions 07-17-20 16 Comment:Done [facility] Other (8 sources) Spiriva Respimat *ANTIASTHMATIC AND BRONCHODILATOR Propensity to adverse reactions Comment:oral irritation [facility] Other (8 sources) Azithromycin Drug Allergy 05-22-20 23 Other [facility] (19 sources) Spiriva Respimat *ANTIASTHMATI Allergy to substance 09-26-20 Comment:oral irritation [facility] Comment on above: Free Text Allergy: S piriva Respimat *ANTIASTHMATIC AND BRONCHODILATOR (7 sources) tiotropium Drug Allergy 11-28-19 24 [facility] Medications Current Medications Medication Drug Class(es) Dates Sig (Normalized) Sig (Original) [id number] 200 actuat albuterol 0.09 mg/actuat metered dose inhaler (20 sources) beta2-Adrenergic Agonist Start: 06-07-2021 End: 01-30-2022 take 1 puff(s) by inhalation every four hours as needed for dyspnea Albuterol Sulfate (Ventolin Hfa) 90 mcg/actuation Hfa Aerosol Inhaler Active 2 PUFF INHALATION Q4H as needed for Dyspnea 11 13January 30, 2022 12:00am Complies with drug therapy albuterol HFA 90 mcg/act inhaler Active take 2 puff(s) by in halation every six hours as needed albuterol HFA (PROVENTIL HFA, VENTOLIN HFA) 90 mcg/actuation inhaler Inhale 2 Puffs as instructed every 6 hours as needed. Active Comment on above: Inhale 2 Puffs as in structed every 6 hours as needed. amiodarone hydrochloride 100 mg oral tablet (20 sources) Antiarrhythmic Start: 06-01-20 take 1 tablet by mouth once daily Amiodarone 100 mg tablet Active 100 MG PO Daily June 01, 2025 1:56pm Complies with drug therapy Start: 12-02-2024 End: 06-01-2025 Amiodarone 100 mg tablet Discontinued 0 PO Daily December 02, 2024 5:55pm June 01, 2025 1:57pm 5 times weekly orally daily; Start: 03-28-2024 End: 12-02-2024 Amiodarone 200 mg tablet Discontinued 100 MG PO Daily March 28, 2024 2:26pm December 02, 2024 5:57pm Start: 03-28-2024 take 100 mg by mouth once elif y Amiodarone Active 100 MG PO Daily March 28, 2024 2:26pm Start: 03-31-2023 End: 12-02-2025 take 1 tablet by mouth five times weekly amiodarone (Pacerone) 100 mg tablet Indications: Persistent atrial fibrillation (Multi) Take 1 tablet (100 mg) by mouth 5 times a week. 60 tablet 3 12/02/2024 12/02/2025 Active Start: 03-31-2023 End: 03-11-2026 take 1 tablet by mouth every other day amiodarone (Pacerone) 100 mg tablet Indications: Persistent atrial fibrillation (Multi) Take 1 tablet (100 mg) by mouth every other day. 03/11/2025 03/11/2026 Active Start: 01-04-2023 End: 12-26-2024 take 1 tablet by mouth once daily amiodarone (Pacerone) 100 mg tablet Indications: Paroxysmal atrial fibrillation (Multi) Take 1 tablet (100 mg) by mouth once daily. 90 tablet 3 12/27/2023 12/02/2024 Discontinued (Reorder) Start: 06-07-2021 End: 03-28-2024 take 1 tablet by mouth once daily Amiodarone 200 mg Tablet Discontinued 200 MG PO Daily January 30, 2022 12:00am March 28, 2024 2:28pm amLODIPine 5 mg oral tablet (20 sources) Dihydropyridine Calcium Channel Robyn Start: 06-01-2025 take 1 tablet by mouth once daily Amlodipine 5 mg tablet Active 5 MG PO Daily 90 June 01, 2025 2:06pm Complies with drug therapy Start: 02-22-2025 End: 06-01-2025 take 1 tablet by mouth once daily Amlodipine 2.5 mg tablet Discontinued 0 .ROUTE .COMPLEX February 22, 2025 8:07am June 01, 2025 2:07pm TAKE 1 TABLET BY MOUTH DAILY Start: 01-27-2025 End: 02-22-2025 take 1 tablet by mouth once daily Amlodipine 2.5 mg tablet Discontinued 2.5 MG PO Daily January 27, 2025 12:00am February 22, 2025 8:08am Start: 05-22-2021 End: 04-30-2023 take 1 tablet by mouth once daily Amlodipine 5 mg Tablet Discontinued 5 MG PO Daily January 30, 2022 12:00am April 30, 2023 10:03am Comment on above: amlodipine 5 mg tabl et benazepril hydrochloride 20 mg / hydroCHLOROthiazide 25 mg oral tablet (11 sources) Thiazide Diuretic, Angiotensin Converting Enzyme Inhibitor Start: 12-19-2018 Benazepril-Hydroc hlorothiazide 20-25 mg per tablet 12/19/2018 Active benazepril-hydro CHLOROthiazide (Lotensin HCT) 20-25 MG tablet Active benzonatate 100 mg oral capsule (2 sources) Non-narcotic Antitussive Start: 10-03-2023 take 1 capsule by mouth three times daily as needed for cough Benzonatate 100 MG 1 capsule as needed Orally Three times a day as needed for cough for 30 days Sep, Active budesonide 0.25 mg/ml inhalation suspension (8 sources) Corticosteroid Start: 08-17-2022 budesonide (Pulmicort) 0.5 MG/2ML nebulizer solution 08/17/2022 Active 12 hr buPROPion hydrochloride 150 mg extended release oral tablet (8 sources) Aminoketone buPROPion SR (Wellbutrin SR) 150 MG 12 hr tablet 1 (one) time each day at the same time. Active busPIRone hydrochloride 15 mg oral tablet (20 sources) Start: 10-12-2024 take 1 tablet by mouth twice daily Buspirone 15 mg tablet Active 0 .ROUTE .COMPLEX 60 October 12, 2024 9:26am TAKE 1 TABLET BY MOUTH TWICE A DAY Complies with drug therapy Start: 09-29-2024 End: 10-12-2024 take 1 tablet by mouth twice daily Buspirone 15 mg tablet Discontinued 15 MG PO Twice daily 180 90 September 29, 2024 4:30pm October 12, 2024 9:26am Start: 04-18-2024 End: 09-29-2024 take 1 tablet by mouth twice daily Buspirone 15 mg tablet Discontinued 0 .ROUTE .COMPLEX 60 April 18, 2024 4:03pm September 29, 2024 4:31pm TAKE 1 TABLET BY MOUTH TWICE A DAY Start: 04-18-2024 take 1 tablet by doyle twice daily Buspirone Active 0 .ROUTE .COMPLEX 60 April 18, 2024 4:03pm TAKE 1 TABLET BY MOUTH TWICE A DAY Start: 03-28-2024 End: 04-18-2024 take 2 tablets by mouth twice daily Buspirone 7.5 mg tablet Discontinued 15 MG PO Twice daily March 28, 2024 2:24pm April 18, 2024 4:03pm Start: 03-28-2024 End: 04-18-2024 take 15 mg by mouth twice daily Buspirone Discontinued 15 MG PO Twice daily March 28, 2024 2:24pm April 18, 2024 4:03pm Start: 04-30-2023 End: 03-28-2024 take 1 tablet by mouth twice daily Buspirone 7.5 mg tablet Discontinued 7.5 MG PO Twice daily November 05, 2023 2:31pm March 28, 2024 2:28pm Start: 03-20-2023 busPIRone (Bus par) 5 MG tablet 03/20/2023 Active Start: 08-10-2022 busPIRone (Bus par) 15 MG tablet Buspirone Active 7.5 MG PO Twice daily August 09, 2022 11:00pm 08/10/2022 Active Start: 08-10-2022 End: 04-30-2023 take 7.5 mg by mouth twice daily Buspirone 15 mg tablet Discontinued 7.5 MG PO Twice daily August 10, 2022 12:00am April 30, 2023 10:01am Start: 08-10-2022 End: 04-30-2023 take 7.5 mg by mouth twice daily Buspirone Discontinued 7.5 MG PO Twice daily August 10, 2022 12:00am April 30, 2023 10:01am Start: 08-10-2022 take 1 tablet by doyle th every twelve hours busPIRone HCl 15 MG 1 tablet Orally Twice a day Mar, Active take 1 tablet by doyle th three times daily busPIRone (BUSPAR) 7.5 mg tablet Take 1 tablet (7.5 mg total) by mouth 3 (three) times a day. Active Comment on above: Buspirone Active 7.5 MG PO Twice daily August 09, 2022 11:00pm calcium citrate 1500 mg / cholecalciferol 200 unt oral tablet (11 sources) Vitamin D take 2 tablets by mouth once in the morning Calcium Citrate-Vitamin D 315-5 MG-MCG tablet Take 2 tablets by mouth in the morning. Active End: 03-24-2025 take 2 tablets by mouth once daily calcium citrate-vitamin D3 (Citracal+D) 315 mg-5 mcg (200 unit) tablet Take 2 tablets by mouth once daily. 03/24/2025 Discontinued (Therapy completed) diazePAM 10 mg oral tablet (20 sources) Benzodiazepine Start: 11-16-2022 End: 11-23-2022 take 1 tablet by mouth every six hours as needed diazePAM (VALIUM) 10 mg tablet Indications: Diplopia Take 1 tablet by mouth every 6 hours as needed for up to 7 days. 2 tablet 0 11/16/2022 11/23/2022 Active Start: 07-20-2022 End: 10-30-2022 Diazepam (Valium) 5 mg Table t Discontinued 5 MG PO Once 5 1 July 20, 2022 12:00am October 30, 2022 10:50am Take 1 tab po 30 min prior to procedure. Comment on above: Take 1 tablet by doyle every 6 hours as needed for up to 7 days. docusate sodium 100 mg oral capsule (20 sources) Start: 03-28-2024 take 1 capsule by mouth once daily as needed Docusate Sodium 100 mg capsule Active 1 CAP PO Daily March 28, 2024 12:00am Free[employer]Si capsule as needed Orally Once a day; Note: Source Status: Taking; Provider: Srinivas Back ( ) Complies with drug therapy take 1 capsule by mo [facility] every twenty-four hours Stool Softener 100 MG 1 capsule as needed Orally Once a day Active evening primrose oil 500 mg oral capsule (2 sources) take 1 capsule by mouth twice daily evening primrose oil 500 mg Take 1 capsule (500 mg) by mouth 2 times a day. Active Evening Carefree Oil - (10 sources) take 1300 mg by mouth twice daily Evening Carefree Oil - as directed Orally twice a day 1300 mg Active famotidine 20 mg oral tablet (8 sources) Histamine-2 Receptor Antagonist Start: 2 take 1 tablet by mouth at bedtime Pepcid 20 MG tablet 1 tablet Orally at bedtime for 30 day(s) 04/05/2022 Active 60 actuat fluticasone propionate 0.25 mg/actuat / salmeterol 0.05 mg/actuat dry powder inhaler (20 sources) Corticosteroid, beta2-Adrenergic Agonist Start: 4 End: 4 Fluticasone Propion-Salmeterol (Advair Diskus) 250-50 mcg/dose blister with device Active 1 INH INHALATION Twice daily 60 September 29, 2024 1:00am Complies with drug therapy Start: 01-30-2022 End: 03-28-2024 take 1 puff(s) by inhalation every twelve hours Fluticasone Propion-Salmeterol 113-14 mcg/actuation Aerosol Powdr Breath Activated Discontinued 1 PUFF INHALATION Every 12 hours 11 13January 30, 2022 12:00am March 28, 2024 3:08pm Start: 07-05-2021 Advair Diskus 250-50 mcg/dose diskus inhaler Inhale. 07/05/2021 Active Start: 06-07-2021 End: 01-30-2022 Fluticasone Propion-Salmeter ol (Advair Diskus) 250-50 mcg/dose Blister With Device Discontinued 1 INH INHALATION Q12H June 07, 2021 2:59pm January 30, 2022 1:49pm Start: 06-07-2021 Fluticasone Pr opion-Salmeterol (Advair Diskus) 250-50 mcg/dose Blister With Device Active 1 INH INHALATION Q12H June 07, 2021 2:59pm Start: 06-07-2021 End: 01-30-2022 Fluticasone Propion-Salmeter ol (Advair Diskus) 250-50 mcg/dose Blister With Device Discontinued 1 INH INHALATION Q12H June 06, 2021 11:00pm January 30, 2022 12:49pm Start: 06-07-2021 End: 01-30-2022 Fluticasone Propion-Salmeter ol (Advair Diskus) 250-50 mcg/dose Blister With Device Discontinued 1 INH INHALATION Q12H June 07, 2021 12:00am January 30, 2022 1:49pm Fluticasone-Salm eterol 100-50 MCG/ACT aerosol powder Advair Diskus 100 mcg-50 mcg/dose powder for inhalation Active take 1 puff(s) by in halation in the morning Fluticasone-Salmeterol (Advair Diskus) 100-50 MCG/ACT aerosol powder Inhale 1 puff in the morning and 1 puff in the evening. Active take 1 puff(s) by in halation once fluticasone-salmeterol (Advair Diskus) 250-50 MCG/DOSE diskus inhaler 1 puff every 12 (twelve) hours. Active fluticasone prop ion-salmeteroL (ADVAIR) 100-50 mcg/dose DISKUS Advair Diskus 100 mcg-50 mcg/dose powder for inhalation Active take 1 puff(s) by in halation twice daily fluticasone-salmeterol (ADVAIR DISKUS) 100-50 mcg/dose inhaler Inhale 1 Puff as instructed twice daily. Active take 1 puff(s) by in halation twice daily Advair Diskus 250-50 MCG/ACT 1 puff Inhalation Twice a day Active take 1 puff(s) by in halation twice daily fluticasone-salmeterol (ADVAIR DISKUS) 100-50 mcg/dose inhaler Inhale 1 Puff as instructed twice daily. 0 Active Comment on above: Inhale 1 Puff as ins tructed twice daily. 3 ml heparin sodium, porcine 100 unt/ml prefilled syringe (9 sources) Unfractionated Heparin, Anti-coagulant Start: 12-09-2022 heparin flush 100 units/mL solution NURSING USE ONLY: USE FOR IMPLANTED VASCULAR ACCESS DEVICE (IVAD) FLUSH. AMBULATORY/OUTPATIENT : PLEASE REORDER UPON HOSPITAL DISCHARGE May access implanted vascular access device (IVAD) as needed for treatment. Before de-accessing port, flush with 10-20ml normal saline and follow with 5 mL heparin (100 units/mL) (if no heparin allergy). De-access port on treatment completion. 12/09/2022 Active Start: 12-09-2022 heparin 100 un it/mL injection Indications: Diplopia NURSING USE ONLY: USE FOR IMPLANTED VASCULAR ACCESS DEVICE (IVAD) FLUSH. AMBULATORY/OUTPATIENT: PLEASE REORDER UPON HOSPITAL DISCHARGE May access implanted vascular access device (IVAD) as needed for treatment. Before de-accessing port, flush with 10-20ml normal saline and follow with 5 mL heparin (100 units/mL) (if no heparin allergy). De-access port on treatment completion. 5 mL 0 12/09/2022 Active Comment on above: NURSING USE ONLY: USE FOR IMPLANTED VASCULAR ACCESS DEVICE (IVAD) FLUSH. AMBULATORY/OUTPATIENT: PLEASE REORDER UPON HOSPITAL DISCHARGE May access implanted vascular access device (IVAD) as needed for treatment. Before de-accessing port, flush with 10-20ml normal saline and follow with 5 mL heparin (100 units/mL) (if no heparin allergy). De-access port on treatment completion. hydroCHLOROthiazide 12.5 mg / olmesartan medoxomil 20 mg oral tablet (8 sources) Thiazide Diuretic, Angiotensin 2 Receptor Robyn olmesartan-hydroC HLOROthiazide (BENIcar HCT) 20-12.5 MG tablet Active iv contrast (will be provided with radiology test) (1 source) Sta rt: 3 End : 3 inject 1 dose intravenously once iv contrast (will be provided with radiology test) Indications: Diplopia MRI Brain Inject, intravenously, once for 1 dose.No IV access, insert saline lock prior to beginning of sedation, infusion, injection of imaging exam.Discontinue saline lock post exam. If Pt. has a central line or IVAD, may access for administration according to line specific nursing protocol.Once exam is complete flush line and de-access according to line specific nursing protocol in the MR contrast administration guidelines link 1 Each 0 11/16/2022 11/17/2022 Active Comment on above: MRI Brain Inject, in travenously, once for 1 dose.No IV access, insert saline lock prior to beginning of sedation, infusion, injection of imaging exam.Discontinue saline lock post exam. If Pt. has a central line or IVAD, may access for administration according to line specific nursing protocol.Once exam is complete flush line and de-access according to line specific nursing protocol in the MR contrast administration guidelines link levothyroxine sodium 0.112 mg oral tablet (20 sources) l-Thyroxine Sta rt: 4 End : 5 take 1 tablet by mouth once daily Levothyroxine 125 mcg tablet Active 0 .ROUTE .COMPLEX 36 December 28, 2024 10:47am TAKE 1 TABLET BY MOUTH DAILY ON SUNDAY, SUNDAY, AND SUNDAY Complies with drug therapy Start: 07-28-2021 Levothyroxine Sodium 112 MCG Oral Tablet , , SUN, SUN Quantity: 0 Refills: 0 Ordered: 28-Jul-2021 DO Start : 28-Jul-2021 Active Start: 06-29-2021 Levothyroxine Sodium 125 MCG Oral Tablet sun, sun, sun Quantity: 0 Refills: 0 Ordered: 29-Jun-2021 DO Start : 15-Sep-2021 Active Start: 01-15-2018 End: 09-29-2024 Levothyroxine (Synthroid) 11 2 mcg Tablet Discontinued 112 MCG PO [email or web address] January 30, 2022 12:00am September 29, 2024 4:31pm Start: 01-10-2018 End: 02-04-2024 Levothyroxine 125 mcg Tablet Discontinued 125 MCG PO [email or web address] January 30, 2022 12:00am February 04, 2024 1:22pm take 1 capsule by mo uth once daily levothyroxine sodium (TIROSINT) 112 mcg capsule Take 112 mcg by mouth daily. Active take 1 tablet by doyle th every other day levothyroxine (Synthroid, Levoxyl) 125 MCG tablet Take 1 tablet every other day by oral route. Active take 1 tablet by doyle th every other day levothyroxine (Synthroid, Levoxyl) 112 MCG tablet Take 1 tablet every other day by oral route. Active take 1 tablet by doyle th once daily Levothyroxine Sodium 125 MCG TAKE ONE TABLET BY MOUTH DAILY ON SUNDAY, SUNDAY AND SUNDAY for 84 Active take 1 tablet by mouth once Levo thyroxine Sodium 112 MCG TAKE ONE TABLET BY MOUTH DAILY EVERY SUNDAY, SUNDAY, SUNDAY, AND SUNDAY Active Comment on above: Take 112 mcg by mout h once daily. Take 125 mcg by mout h. As directed losartan potassium 50 mg oral tablet (11 sources) Angiotensin 2 Receptor Robyn take 1 tablet by mouth in the morning losartan (Cozaar) 50 MG tablet Take 1 tablet by mouth in the morning. Active Comment on above: Take 50 mg by mouth once daily. As directed melatonin 5 mg oral capsule (20 sources) Start: 03-28-2024 take 1 capsule by mouth once daily at bedtime Melatonin 5 mg capsule Active 5 MG PO Daily at bedtime March 28, 2024 12:00am Complies with drug therapy take 1 capsule by mo [facility] every twenty-four hours Melatonin 5 MG 1 capsule at bedtime as needed Orally Once a day Active 24 hr metoprolol succinate 25 mg extended release oral tablet (11 sources) beta-Adrenergic Robyn Start: 11-11-2017 take 1 tablet by mouth once daily metoprolol succinate ER (TOPROL XL) 25 mg 24 hr tablet Take 25 mg by mouth once daily. 11/11/2017 Active take 1 tablet by doyle th every twenty-four hours in the morning metoprolol succinate XL (Toprol-XL) 25 M G 24 hr tablet Take 1 tablet by mouth in the morning. Active Comment on above: Take 25 mg by mouth once daily. mirtazapine 15 mg oral tablet (11 sources) Start: 12-17-2017 mirtazapine (REMERON) 15 mg tablet Take 15 mg by mouth as needed. 12/17/2017 Active take 0.5 tablet by mouth once da cecily mirtazapine (Remeron) 15 MG tablet Take 0.5 tablets every day by oral route for 90 days. Active Comment on above: Take 15 mg by mouth as needed. 12 hr orphenadrine citrate 100 mg extended release oral tablet (7 sources) Muscle Relaxant Start: 07-18-20 23 take 1 tablet by mouth twice daily as needed for muscle spasms orphenadrine (NORFLEX) 100 mg 12 hr tablet Take 1 tablet (100 mg total) by mouth 2 (two) times a day as needed for muscle spasms. 14 tablet 07/18/2023 Active microencapsulated potassium chloride 20 meq extended release oral tablet (20 sources) Start: 09-21-20 22 Potassium Chloride Leah ER 20 MEQ Oral Tablet Extended Release 40MEQ x 2 doses initially within in the first 12-24 hours then 40MEQ daily. Quantity: 94 Refills: 3 Ordered: 21-Sep-2022 Heidi Kuhn MD Start : 21-Sep-2022 Active new start Start: 01-30-2022 End: 04-30-2023 Potassium Chloride (Klor-Con M20) 20 mEq Tablet,Er Particles/Crystals Discontinued 20 MEQ PO Daily January 30, 2022 12:00am April 30, 2023 10:03am Start: 11-23-2021 End: 01-30-2022 take 1 tablet by mouth once daily Potassium Chloride 20 mEq Tablet Extended Release Discontinued 20 MEQ PO Daily November 23, 2021 1:00am January 30, 2022 1:49pm Vit No.[id number]-Mshzz (Classic ) 28 mg iron- 800 mcg tablet (16 sources) Start: 03-28-2024 take 1 tablet by mouth once daily Vit No.[id number]-Zdohx (Classic ) 28 mg iron- 800 mcg tablet Active 1 TAB PO Daily March 28, 2024 12:00am Complies with drug therapy Start: 03-28-2024 take 1 tablet by mouth once da cecily Start: 03-28-2024 take 1 tablet by mouth once da cecily Vit No.[id number]-Mjben (Classic ) 28 mg iron- 800 mcg tablet Active 1 TAB PO Daily March 27, 2024 11:00pm Start: 03-28-2024 take 1 tablet by mouth once da cecily Vit No.463-Nyvo-Etlab (Classic ) 28 mg iron- 800 mcg tablet Active 1 TAB PO Daily March 28, 2024 12:00am Vitamins 28-0.8 MG (10 sources) take 1 tablet by mouth once daily Vitamins 28-0.8 MG 1 tablet Orally Once a day Active promethazine hydrochloride 12.5 mg oral tablet (3 sources) Phenothiazine Start: take 1 tablet by mouth every six hours as needed promethazine (PHENERGAN) 12.5 mg tablet Take 12.5 mg by mouth every 6 hours as needed. 12/22/2017 Active Comment on above: Take 12.5 mg by mout h every 6 hours as needed. revefenacin 0.0583 mg/ml inhalation solution (8 sources) Start: Yupelri 175 MCG/3ML nebulizer solution 08/26/2022 Active RSVPreF3 Vac Recomb Adjuvanted (Arexvy) 120 MCG/0.5ML reconstituted suspension (7 sources) Start: RSVPreF3 Vac Recomb Adjuvanted (Arexvy) 120 MCG/0.5ML reconstituted suspension as directed Intramuscular once for 1 days 04/30/2024 Active spironolactone 25 mg oral tablet (20 sources) Aldosterone Antagonist Start: take 2 tablets by mouth once daily Spironolactone 25 mg tablet Active 50 MG PO Daily March 28, 2024 12:00am Complies with drug therapy Start: 03-28-2024 take 50 mg by mouth once daily Spironolactone Active 50 MG PO Daily March 28, 2024 12:00am Start: 01-04-2023 spironolactone (Aldactone) 25 MG tablet 04/07/2023 Active Start: 01-04-2023 take 2 tablets by mo uth every twenty-four hours Spironolactone 25 MG 2 tablets Orally Once a day Dec, Active Suprep Bowel Prep Kit 17.5-3.13-1.6 GM/180ML (15 sources) Start: 03-18-2021 valACYclovir 1000 mg oral tablet (10 sources) Herpesvirus Nucleoside Analog DNA Polymerase Inhibitor, Herpes Simplex Virus Nucleoside Analog DNA Polymerase Inhibitor, Herpes Zoster Virus Nucleoside Analog DNA Polymerase Inhibitor Start: 07-07-2024 Valacyclovir 1 gram tablet Active 1000 MG PO Every 8 hours 04 05July 07, 2024 12:00am Complies with drug therapy Start: 07-07-2024 take 1000 mg by mout h every eight hours Valacyclovir Active 1000 MG PO Every 8 hours 04 05July 07, 2024 12:00am vit C/E/Zn/coppr/lutein/zeax an (PRESERVISION AREDS-2 ORAL) (4 sources) take 2 tablets by mouth once daily vit C/E/Zn/coppr/lutein/zeaxan (PRESERVISION AREDS-2 ORAL) Take 2 tablets by mouth once daily. Active Completed/Discontinued Medications Medication Drug Class(es) Dates Sig (Normalized) Sig (Original) acetaminophen 500 mg oral tablet (20 sources) Start: 01-30-2022 End: 10-30-2022 take 1 tablet by mouth every four hours as needed for pain Acetaminophen 500 mg Tablet Discontinued 500 MG PO Q4H as needed for Pain 0 January 30, 2022 12:00am October 30, 2022 10:50am acetaminophen 325 mg / HYDROcodone bitartrate 5 mg oral tablet (20 sources) Opioid Agonist Start: 08-10-2022 End: 10-30-2022 take 1 tablet by mouth every six hours as needed for pain Hydrocodone-Acetami nophen 5-325 mg tablet Discontinued 1 TAB PO Q6H as needed for pain 03 03August 10, 2022 October 30, 2022 10:48am Start: 10-13-2021 End: 11-14-2021 take 1 tablet by mouth every six hours as needed for pain Hydrocodone-Acetaminophen 5-325 mg table t Discontinued 1 TAB PO Q6H as needed for pain 03 03October 13, 2021 November 14, 2021 12:23pm Start: 06-27-2021 End: 07-29-2021 take 1 tablet by mouth every six hours as needed for pain Hydrocodone-Acetaminophen 5-325 mg table t Discontinued 1 TAB PO Q6H as needed for pain 03 03June 27, 2021 July 29, 2021 1:47pm aspirin 81 mg delayed release oral tablet (20 sources) Platelet Aggregation Inhibitor, Nonsteroidal Anti-inflammatory Drug Start: 01-30-2022 End: 02-24-2022 take 1 tablet by mouth once daily Aspirin 81 mg Tablet,Delayed Release (Dr/Ec) Discontinued 81 MG PO Daily January 30, 2022 12:00am February 24, 2022 10:15am B-12 - up to 1000 mcg (20 sources) Start: 10-31-2023 B-12 - up to 1000 mcg Oct, 1000 mcg Start: 09-26-2023 B-12 - up to 1 000 mcg Sep, 1 mL Start: 08-23-2023 B-12 - up to 1 000 mcg Aug, 1000 mcg Start: 06-22-2023 B-12 - up to 1 000 mcg Jun, 1000 mcg Start: 05-23-2023 B-12 - up to 1 000 mcg May, 1000 mcg Start: 04-13-2023 B-12 - up to 1 000 mcg Mar, 1000 mcg Start: 02-22-2023 B-12 - up to 1 000 mcg February, 1000 mcg Start: 01-03-2023 B-12 - up to 1 000 mcg Dec, 1000 mcg Start: 11-28-2022 B-12 - up to 1 000 mcg Nov, 1000 mcg cephalexin 500 mg oral capsule (12 sources) Cephalosporin Antibacterial Start: 06-13-2024 End: 07-07-2024 take 1 capsule by mouth three times daily Cephalexin 500 mg capsule Discontinued 500 MG PO Three times daily 26 02June 13, 2024 12:00am July 07, 2024 2:16pm fidaxomicin 200 mg oral tablet (20 sources) Macrolide Antibacterial Start: 11-03-2021 End: 01-16-2022 take 1 tablet by mouth twice daily Fidaxomicin 200 mg Tablet Discontinued 200 MG PO Twice daily November 03, 2021 3:31pm January 16, 2022 5:27pm fluconazole 100 mg oral tablet (20 sources) Azole Antifungal Start: 01-20-2022 End: 02-24-2022 take 1 tablet by mouth once daily in the morning Fluconazole 100 mg Tablet Discontinued 100 MG PO Every morning 02 16January 30, 2022 12:00am February 24, 2022 10:16am gabapentin 300 mg oral capsule (20 sources) Anti-epileptic Agent Start: 08-15-2021 End: 11-14-2021 take 1 capsule by mouth three times daily Gabapentin 300 mg Capsule Discontinued 300 MG PO Three times daily August 15, 2021 12:00am November 14, 2021 12:23pm End: 12-02-2024 gabapentin (Neurontin) 100 M G capsule Take 1 capsule as needed by oral route for 90 days. Active take 1 capsule by mo uth three times daily gabapentin (NEURONTIN) 100 mg capsule Take 100 mg by mouth three times daily. Active Comment on above: Take 100 mg by mouth three times daily. Hyaluronic Mv-Ckfuodeyp-Zfbc (Radiaplexrx) Gel (20 sources) Start: 09-13-2021 End: 10-13-2021 Hyaluronic Vk-Swkbrhefw-Yuil (Radiaplexrx) Gel Discontinued 1 APPLIC TOPICAL Three times daily September 13, 2021 3:48pm October 13, 2021 1:04pm Start: 09-13-2021 End: 10-13-2021 Hyaluronic Pt-Xevttogti-Vwji (Radiaplexrx) Gel Discontinued 1 APPLIC TOPICAL Three times daily September 13, 2021 12:00am October 13, 2021 12:04pm Start: 09-13-2021 End: 10-13-2021 Hyaluronic Xm-Pwdexcdda-Mmdc (Radiaplexrx) Gel Discontinued 1 APPLIC TOPICAL Three times daily September 13, 2021 1:00am October 13, 2021 1:04pm hydroCHLOROthiazide 25 mg oral tablet (20 sources) Thiazide Diuretic Start: 05-22-2021 End: 04-30-2023 take 1 tablet by mouth once daily Hydrochlorothiazide 25 mg Tablet Discontinued 25 MG PO Daily January 30, 2022 12:00am April 30, 2023 10:02am Comment on above: Take 25 mg by mouth once daily. levoFLOXacin 750 mg oral tablet (20 sources) Quinolone Antimicrobial Start: 08-19-2021 End: 10-13-2021 take 1 tablet by mouth once daily Levofloxacin (Levaquin) 750 mg Tablet Discontinued 750 MG PO Daily August 19, 2021 12:00am October 13, 2021 1:01pm LORazepam 0.5 mg oral tablet (20 sources) Benzodiazepine Start: 07-18-2021 End: 03-06-2025 take 1 tablet by mouth at bedtime as needed for sleep Lorazepam 0.5 mg Tablet Discontinued 0.5 MG PO Bedtime as needed for Sleep 0 January 30, 2022 12:00am February 24, 2022 3:47pm Start: 06-09-2021 End: 03-20-2023 take 1 tablet by mouth twice daily as needed for sleep Lorazepam (Ativan) 0.5 mg tablet Discontinued 0.5 MG PO Twice daily as needed for Sleep October 13, 2021 1:04pm November 09, 2021 10:43am Magic Mouth Wash (20 sources) Start: 08-26-2021 End: 10-13-2021 take 1 [tsp_us] by mouth every six hours Magic Mouth Wash Discontinued 1 TSP PO Q6H August 26, 2021 2:56pm October 13, 2021 1:04pm Start: 08-26-2021 End: 10-13-2021 take 1 [tsp_us] by mouth every six hours Magic Mouth Wash Discontinued 1 TSP PO Q6H August 26, 2021 12:00am October 13, 2021 12:04pm Start: 08-26-2021 End: 10-13-2021 take 1 [tsp_us] by mouth every six hours Magic Mouth Wash Discontinued 1 TSP PO Q6H August 26, 2021 1:00am October 13, 2021 1:04pm meclizine hydrochloride 25 mg oral tablet (20 sources) Antiemetic Start: 02-24-2022 End: 10-30-2022 take 1 tablet by mouth once daily Meclizine 25 mg Tablet Discontinued 25 MG PO Daily February 24, 2022 12:00am October 30, 2022 10:50am metroNIDAZOLE 500 mg oral tablet (20 sources) Nitroimidazole Antimicrobial Start: 09-27-2021 End: 11-14-2021 take 1 tablet by mouth three times daily Metronidazole 500 mg Tablet Discontinued 500 MG PO Three times daily 42 September 27, 2021 1:00am November 14, 2021 12:24pm montelukast 10 mg oral tablet (20 sources) Leukotriene Receptor Antagonist Start: 06-07-2021 End: 10-13-2021 take 1 tablet by mouth once daily Montelukast 10 mg Tablet Discontinued 10 MG PO Daily June 07, 2021 12:00am October 13, 2021 1:05pm omeprazole 10 mg delayed release oral capsule (20 sources) Proton Pump Inhibitor Start: 08-26-2021 End: 01-16-2022 take 1 capsule by mouth once daily Omeprazole (Prilosec) 10 mg Capsule,Delayed Release(Dr/Ec) Discontinued 10 MG PO Daily August 26, 2021 1:00am January 16, 2022 5:28pm Start: 01-22-2019 take 1 capsule by mo [facility] twice daily omeprazole (PRILOSEC) 20 mg capsule Take 1 capsule by mouth twice daily. 60 capsule 01/22/2019 Active Comment on above: Take 1 capsule by mo [facility] twice daily. ondansetron 8 mg oral tablet (20 sources) Serotonin-3 Receptor Antagonist Start: 1 End: take 1 tablet by mouth every eight hours as needed for nausea Ondansetron Hcl 8 mg Tablet Discontinued 8 MG PO Q8H as needed for Nausea June 17, 2021 12:00am October 13, 2021 1:05pm predniSONE 10 mg oral tablet (20 sources) Start: 2 End: 3 take 1 tablet by mouth once Prednisone 10 mg tablet Discontinued 10 MG PO per package directions August 10, 2022 6:59am October 30, 2022 10:50am Start: 01-30-2022 End: 04-18-2022 take 3 tablets by mouth once daily Prednisone 20 mg Tablet Discontinued 60 MG PO Daily January 30, 2022 12:00am April 18, 2022 10:50am Start: 01-30-2022 End: 04-18-2022 take 60 mg by mouth once daily Prednisone Discontinued 60 MG PO Daily January 30, 2022 12:00am April 18, 2022 10:50am Start: 01-20-2022 End: 01-30-2022 Prednisone 10 mg Tablet Disc ontinued 60 MG PO Daily 84 January 20, 2022 12:00am January 30, 2022 1:49pm Start: 01-20-2022 End: 01-30-2022 take 60 mg by mouth once daily Prednisone Discontinued 60 MG PO Daily 84 January 20, 2022 12:00am January 30, 2022 1:49pm take 1 tablet by doyle th every other day predniSONE (Deltasone) 5 MG tablet 1 tablet Orally qod Active TABS (4 sources) TABS Ta ke 1 tablet daily Quantity: 0 Refills: 0 Ordered: 07-Mar-2023 DO Active vit 93/iron fum/folic ( FORMULA ORAL) (1 source) End: 03-05-2024 take 1 tablet by mouth once daily vit 93/iron fum/folic ( FORMULA ORAL) Take 1 tablet by mouth once daily. 03/05/2024 Discontinued (Therapy completed) 125 ml sodium chloride 9 mg/ml prefilled syringe (6 sources) Start: 05-07-2025 End: 05-07-2025 20 mL, intravenous, As needed, port line care, Starting on Jelly 05/07/25 at 1349 Start: 03-26-2025 End: 03-26-2025 20 mL, intravenous, As neede d, port line care, Starting on Jelly 03/26/25 at 1312 Start: 02-12-2025 End: 02-12-2025 20 mL, intravenous, As neede d, port line care, Starting on Jelly 02/12/25 at 1247 Start: 01-01-2025 End: 01-01-2025 20 mL, intravenous, As neede d, port line care, Starting on Jelly 01/01/25 at 1348 Start: 10-06-2024 End: 10-06-2024 20 mL, intravenous, As neede d, port line care, Starting on 10/06/24 at 1238 Start: 08-25-2024 End: 08-25-2024 20 mL, intravenous, As neede d, port line care, Starting on 08/25/24 at 1451 torsemide 20 mg oral tablet (20 sources) Loop Diuretic Start: 01-16-2023 take 2 tablets by mouth every twenty-four hours Torsemide 20 MG 2 tablet Orally daily Jan, Active Start: 09-04-2022 End: 05-19-2024 take 1 tablet by mouth once daily Torsemide 20 mg Tablet Discontinued 20 MG PO Daily October 30, 2022 1:00am May 19, 2024 10:56am Comment on above: Take 20 mg by mouth once daily. vancomycin 125 mg oral capsule (20 sources) Glycopeptide Antibacterial Start: End: take 1 capsule by mouth once daily Vancomycin 125 mg capsule Discontinued 125 MG PO Daily June 13, 2024 12:00am June 13, 2024 1:05pm Start: 12-23-2021 take 1 capsule by mo [facility] four times daily, then take 1 capsule by mouth three times daily, then take 1 capsule by mouth twice daily, then take 1 capsule by mouth once daily Vancomycin Active 125 MG PO As Directed December 23, 2021 3:39pm Take 1 capsule four times daily for 2 weeks, then take 1 capsule three times daily for 1 week, then take 1 capsule twice daily for 1 week, then take 1 capsule once daily for 1 week. Start: 12-23-2021 End: 01-30-2022 take 1 tablet by mouth twice daily, then take 1 tablet by mouth every week Vancomycin 125 mg Capsule Discontinued 125 MG PO As Directed December 23, 2021 1:00am January 30, 2022 1:49pm 1 tabs BID daily until sunday01/20/22 and 1 tab weekly for 7 days Start: 10-03-2021 End: 10-13-2021 take 1 capsule by mouth four times daily Vancomycin (Vancocin) 125 mg Capsule Discontinued 125 MG PO Four times daily October 03, 2021 1:00am October 13, 2021 1:01pm vitamin b12 1 mg oral tablet (20 sources) Vitamin B12 Start: 01-30-2022 End: 02-24-2022 take 1 tablet by mouth once daily Cyanocobalamin (Vitamin B-12) 1,000 mcg Tablet Discontinued 1000 MCG PO Daily January 30, 2022 12:00am February 24, 2022 10:16am Start: 01-20-2022 End: 01-30-2022 take 1 capsule by mouth once daily Cyanocobalamin (Vitamin B-12) 5,000 mcg capsule Discontinued 5000 MCG PO Daily January 20, 2022 12:00am January 30, 2022 1:49pm Problems Active Problems Problem Classification Problem Date Documented Da te Episodic/Chronic Abdominal pain (20 sources) Epigastric pain; Translations: [Epigastric pain] 01-19-2022 Episodic Acute bronchitis (4 sources) Acute bronchitis; Translations: [Acute bronchitis, unspecified] Episodic Administrative/social admission (20 sources) Other reduced mobility; Translations: [Impaired mobility and activities of daily living] 01-21-2022 Episodic Anxiety disorders (20 sources) Generalized anxiety disorder; Translations: [Generalized anxiety disorder] Chronic Asthma (16 sources) Asthma; Translations: [Asthma, unspecified type, unspecified] Chronic Bacterial infection; unspecified site (20 sources) Clostridioides difficile infection; Translations: [Other bacterial infections of unspecified site] 10-17-2021 Episodic Blindness and vision defects (20 sources) Diplopia; Translations: [Diplopia] Onset: 12-09-2022 01-16-2022 Episodic Cancer of breast (20 sources) History of malignant neoplasm of breast; Translations: [Personal history of malignant neoplasm of breast] Onset: 10-15-2008 10-17-2021 Episodic Cancer of bronchus; lung (20 sources) Squamous cell carcinoma of lung; Translations: [Malignant neoplasm of bronchus and lung, unspecified] Onset: 10-29-2023 06-24-2021 Chronic Cardiac dysrhythmias (20 sources) Paroxysmal atrial fibrillation; Translations: [Atrial fibrillation] Onset: 11-30-2023 Resolved: 12-02-2024 Chronic Comment on above: Echo: LVEF 60%, RV n ormal size/function, RVSP normal - 01/2019 Chronic kidney disease (20 sources) Chronic kidney disease stage 4; Translations: [Chronic kidney disease, stage 4 (severe)] Chronic Chronic obstructive pulmonary disease and bronchiectasis (20 sources) Chronic obstructive lung disease; Translations: [Chronic airway obstruction, not elsewhere classified] Onset: 11-16-2016 Chronic Conditions associated with dizziness or vertigo (2 sources) Dizziness and giddiness; Translations: [Dizziness and giddiness] Episodic Deficiency and other anemia (2 sources) Anemia due to chronic blood loss; Translations: [Iron deficiency anemia secondary to blood loss (chronic)] Onset: 11-16-2016 Chronic Deficiency and other anemia (20 sources) Pernicious anemia; Translations: [Vitamin B12 deficiency anemia due to intrinsic factor deficiency] 12-12-2023 Episodic Deficiency and other anemia (11 sources) Vitamin B12 deficiency anemia due to intrinsic factor deficiency; Translations: [Pernicious anemia] Episodic Deficiency and other anemia (1 source) Deficiency and other anemia; Translations: [Unspecified iron deficiency anemia] Onset: 11-11-2018 Diabetes mellitus with complications (20 sources) Type 2 diabetes mellitus with hyperglycemia; Translations: [Hyperglycemia due to type 2 diabetes mellitus] Onset: 11-11-2018 Chronic Diabetes mellitus without complication (2 sources) Type 2 diabetes mellitus without complication; Translations: [Diabetes mellitus without mention of complication, type II or unspecified type, not stated as uncontrolled] Onset: 07-31-2018 Chronic Disorders of lipid metabolism (2 sources) Mixed hyperlipidemia; Translations: [Mixed hyperlipidemia] Chronic Esophageal disorders (15 sources) Diffuse spasm of esophagus; Translations: [Dyskinesia of esophagus] Chronic Esophageal disorders (2 sources) Esophageal disorders; Translations: [Gastro-esophageal reflux disease with esophagitis, without bleeding] Essential hypertension (20 sources) Benign essential hypertension; Translations: [Benign essential hypertension] Onset: 02-04-2023 01-21-2022 Chronic Genitourinary symptoms and ill-defined conditions (3 sources) Dysuria; Translations: [Dysuria] 06-01-2025 Episodic Headache; including migraine (2 sources) Chronic post-traumatic headache, not intractable; Translations: [Chronic post-traumatic headache] Chronic Malaise and fatigue (20 sources) Asthenia; Translations: [Weakness] Onset: 07-17-2016 01-16-2022 Episodic Malignant neoplasm without specification of site (20 sources) Squamous cell carcinoma; Translations: [Squamous cell carcinoma] Chronic Menopausal disorders (12 sources) Decreased estrogen level; Translations: [Other primary ovarian failure] Chronic Miscellaneous mental health disorders (2 sources) Primary insomnia; Translations: [Primary insomnia] Chronic Mood disorders (14 sources) Mild recurrent major depression; Translations: [Major depressive disorder, recurrent, mild] Onset: 07-31-2018 Chronic Mycoses (20 sources) Candidiasis of the esophagus; Translations: [Candidal esophagitis] 01-21-2022 Episodic Other aftercare (20 sources) Drug therapy finding; Translations: [Long-term (current) use of other medications] Episodic Other aftercare (1 source) terminal gauger (current) use of inhaled steroids; Translations: [terminal gauger (current) use of inhaled steroids] Episodic Other aftercare (1 source) Long-term current use of inhaled steroid; Translations: [terminal gauger (current) use of inhaled steroids] Episodic Other aftercare (1 source) Long-term current use of drug therapy; 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] Episodic Other and unspecified benign neoplasm (11 sources) Benign neoplasm of colon; Translations: [Benign neoplasm of colon, unspecified] Episodic Other and unspecified benign neoplasm (1 source) Benign neoplasm of colon, unspecified; Translations: [Benign neoplasm of colon, unspecified] Episodic Other circulatory disease (13 sources) Device in situ; Translations: [Presence of other vascular implants and grafts] Onset: 08-21-2024 08-25-2024 Chronic Other circulatory disease (1 source) Presence of other vascular implants and grafts; Translations: [Presence of other vascular implants and grafts] Onset: 08-21-2024 Chronic Other diseases of veins and lymphatics (2 sources) Venous insufficiency (chronic) (peripheral); Translations: [Chronic venous insufficiency] Episodic Other diseases of veins and lymphatics (11 sources) Peripheral venous insufficiency; Translations: [Venous insufficiency (chronic) (peripheral)] Episodic Other eye disorders (9 sources) Optic atrophy; Translations: [Unspecified optic atrophy] Onset: 11-30-2023 06-03-2024 Chronic Other eye disorders (20 sources) Ptosis of left eyelid; Translations: [Unspecified ptosis of left eyelid] 01-16-2022 Episodic Other eye disorders (20 sources) Unspecified ptosis of left eyelid; Translations: [Ptosis of eyelid, unspecified] Episodic Other eye disorders (11 sources) Abducens nerve palsy; Translations: [Sixth [abducent] nerve palsy, right eye] Onset: 07-20-2022 Episodic Other eye disorders (2 sources) Third [oculomotor] nerve palsy, left eye; Translations: [Third [oculomotor] nerve palsy, left eye] Episodic Other eye disorders (1 source) Sixth [abducent] nerve palsy, right eye; Translations: [Sixth nerve palsy of right eye] Episodic Other eye disorders (9 sources) Dry eyes; Translations: [Dry eye syndrome of bilateral lacrimal glands] Onset: 11-30-2023 06-03-2024 Episodic Other gastrointestinal disorders (20 sources) Dysphagia; Translations: [Dysphagia, unspecified] 01-19-2022 Episodic Other gastrointestinal disorders (11 sources) Dysphagia, unspecified; Translations: [Dysphagia, unspecified] Episodic Other injuries and conditions due to external causes (20 sources) Minor head injury; Translations: [Unspecified injury of head, initial encounter] 11-14-2021 Episodic Other injuries and conditions due to external causes (4 sources) Unspecified injury of head, initial encounter; Translations: [Head injury, unspecified] Episodic Other injuries and conditions due to external causes (2 sources) History of fall; Translations: [History of falling] Episodic Other lower respiratory disease (2 sources) Lung field abnormal; Translations: [Other nonspecific abnormal finding of lung field] Episodic Other nervous system disorders (20 sources) Neuropathy; Translations: [Polyneuropathy, unspecified] 10-17-2021 Chronic Other nervous system disorders (20 sources) Polyneuropathy, unspecified; Translations: [Mononeuritis of unspecified site] Chronic Other nervous system disorders (20 sources) Polyneuropathy; Translations: [Polyneuropathy, unspecified] 01-21-2022 Chronic Other nervous system disorders (2 sources) Disorder of nerve root and/or plexus; Translations: [Other nerve root and plexus disorders] Onset: 01-01-2017 Chronic Other nervous system disorders (2 sources) Critical illness myopathy; 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 Other nervous system disorders (20 sources) Acute postoperative pain; Translations: [Other acute postprocedural pain] 07-29-2021 Episodic Other nervous system disorders (20 sources) Neuromuscular junction disorder; Translations: [Myoneural disorder, unspecified] 01-31-2022 Episodic Other nervous system disorders (1 source) Unsteadiness on feet; Translations: [Unsteadiness on feet] Episodic Other nervous system disorders (1 source) Abnormal gait; Translations: [Unsteadiness on feet] Episodic Other nutritional; endocrine; and metabolic disorders (4 sources) Body mass index 30+ - obesity; Translations: [Body Mass Index 33.0-33.9, adult] Onset: 07-17-2016 Chronic Other nutritional; endocrine; and metabolic disorders (20 sources) Obesity; Translations: [Obesity, unspecified] Chronic Other nutritional; endocrine; and metabolic disorders (1 source) Morbid (severe) obesity due to excess calories; Translations: [Morbid (severe) obesity due to excess calories] Onset: 07-17-2016 Chronic Other nutritional; endocrine; and metabolic disorders (2 sources) Obese class II; Translations: [Body mass index 35.0-35.9, adult] Onset: 07-17-2016 Chronic Other nutritional; endocrine; and metabolic disorders (1 source) Morbid obesity; Translations: [Morbid (severe) obesity due to excess calories] Onset: 07-17-2016 Chronic Other screening for suspected conditions (not mental disorders or infectious disease) (7 sources) Encounter for screening mammogram for malignant neoplasm of breast; Translations: [Special screening for osteoporosis] Onset: 07-17-2016 Episodic Other upper respiratory disease (2 sources) Allergic rhinitis; Translations: [Allergic rhinitis, unspecified] Chronic Other upper respiratory disease (2 sources) Other specified disorders of nose and nasal sinuses; Translations: [Other specified disorders of nose and nasal sinuses] Episodic Pleurisy; pneumothorax; pulmonary collapse (2 sources) Pleurisy; Translations: [Pleurisy] Episodic Residual codes; unclassified (4 sources) Localized edema; Translations: [LOCALIZED EDEMA] Onset: 01-30-2023 Episodic Residual codes; unclassified (1 source) Family history of malignant neoplasm of breast; Translations: [FAMILY HX MALIG NEOPLASM OF BREAST] Onset: 12-21-2022 Episodic Residual codes; unclassified (1 source) Family history of malignant neoplasm of other organs or systems; Translations: [FAM HX MALIG NEOPLASM OTH ORGN/SYS] Onset: 12-21-2022 Episodic Residual codes; unclassified (1 source) Family history of malignant neoplasm of bladder; Translations: [FAM HX MALIGNANT NEOPLASM BLADDER] Onset: 12-21-2022 Episodic Residual codes; unclassified (1 source) Family history of malignant neoplasm of other genital organs; Translations: [FAM HX MALIG NEOPLSM OTH GENIT ORGN] Onset: 12-21-2022 Episodic Residual codes; unclassified (2 sources) Procedure not done; Translations: [Procedure and treatment not carried out because of patient's decision for unspecified reasons] Episodic Respiratory failure; insufficiency; arrest (adult) (14 sources) Chronic respiratory failure with hypoxia; Translations: [Chronic respiratory failure] Onset: 04-18-2022 Chronic Retinal detachments; defects; vascular occlusion; and retinopathy (9 sources) Nonexudative age-related macular degeneration; Translations: [Nonexudative age-related macular degeneration, bilateral, intermediate dry stage] Onset: 11-28-2023 06-03-2024 Chronic Skull and face fractures (20 sources) Fractured nasal bones; Translations: [Fracture of nasal bones, initial encounter for closed fracture] 11-14-2021 Episodic Spondylosis; intervertebral disc disorders; other back problems (7 sources) Acute thoracic back pain; Translations: [Pain in thoracic spine] 01-27-2025 Episodic Sprains and strains (20 sources) Sprain of wrist; Translations: [Unspecified sprain of right wrist, initial encounter] 11-14-2021 Episodic Substance-related disorders (2 sources) Tobacco user; Translations: [Nicotine dependence, cigarettes, in remission] Chronic Superficial injury; contusion (20 sources) Contusion of face; Translations: [Contusion of other part of head, initial encounter] 11-14-2021 Episodic Systemic lupus erythematosus and connective tissue disorders (2 sources) Autoimmune disease; Translations: [Autoimmune disease, not elsewhere classified] Onset: 07-17-2016 Chronic Thyroid disorders (20 sources) Hypothyroidism; Translations: [Unspecified acquired hypothyroidism] Onset: 07-17-2016 Chronic Unclassified (1 source) Other screening mammogram; Translations: [Other screening mammogram] Onset: 07-12-2016 Unclassified (2 sources) Long-term current use of drug therapy; Translations: [Long-term (current) use of other medications] Onset: 07-31-2018 Unclassified (1 source) Need for prophylactic vaccination and inoculation, Influenza; Translations: [Need for prophylactic vaccination and inoculation, Influenza] Onset: 06-21-2017 Unclassified (1 source) Emphysema; Translations: [Other emphysema] Onset: 06-03-2019 Unclassified (3 sources) Other persistent atrial fibrillation; Translations: [Other persistent atrial fibrillation] Onset: 12-02-2024 Unclassified (1 source) Port/VAD Care Onset: 08-25-2024 Viral infection (12 sources) Herpes zoster; Translations: [Zoster without complications] 07-07-2024 Episodic Past or Other Problems Problem Classification Problem Date Documented Da te Episodic/Chronic Acute posthemorrhagic anemia (2 sources) Acute posthemorrhagic anemia; Translations: [Acute posthemorrhagic anemia] Onset: 9 Episodic Deficiency and other anemia (4 sources) Iron deficiency anemia; Translations: [Iron deficiency anemia, unspecified] Onset: 8 01-16-2018 Episodic Deficiency and other anemia (1 source) Anemia, unspecified; Translations: [Anemia, unspecified] Onset: 9 Episodic Deficiency and other anemia (1 source) Anemia; Translations: [Anemia, unspecified] Onset: 9 Episodic Diabetes mellitus without complication (2 sources) Impaired fasting glucose; Translations: [Impaired fasting glycemia] Onset: 6 Episodic Fluid and electrolyte disorders (16 sources) Hypokalemia; Translations: [Hypopotassemia] Onset: 4 11-30-2023 Episodic Gastrointestinal hemorrhage (20 sources) Gastrointestinal hemorrhage; Translations: [Hemorrhage of gastrointestinal tract, unspecified] Onset: 4 11-30-2023 Episodic Immunizations and screening for infectious disease (20 sources) Patient encounter status; Translations: [Other specified vaccination] Onset: 4 Resolved: 5 11-30-2023 Episodic Mood disorders (5 sources) Mood disorders; Translations: [Major depressive disorder, recurrent episode, mild] Onset: 8 12-12-2022 Nausea and vomiting (2 sources) Nausea; Translations: [Nausea] Onset: 7 Episodic Nonspecific chest pain (4 sources) Other chest pain; Translations: [Chest pain] Onset: 9 Episodic Nutritional deficiencies (2 sources) Iron deficiency; Translations: [Iron deficiency] Onset: 7 Episodic Other aftercare (5 sources) Other fdc (current) drug therapy; Translations: [Other fdc (current) drug therapy] Onset: 4 Episodic Other aftercare (9 sources) Taking high risk medication; 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] Onset: 4 03-05-2024 Episodic Other lower respiratory disease (20 sources) Dyspnea on exertion; Translations: [Shortness of breath] Onset: 4 11-30-2023 Episodic Other lower respiratory disease (3 sources) Other forms of dyspnea; Translations: [Other forms of dyspnea] Onset: 9 Episodic Other lower respiratory disease (3 sources) Shortness of breath; Translations: [SHORTNESS OF BREATH] Onset: 3 Episodic Other lower respiratory disease (3 sources) Dyspnea; Translations: [Shortness of breath] Onset: 9 Resolved: 1 Episodic Other lower respiratory disease (2 sources) Cough; Translations: [Cough, unspecified] Resolved: 1 Episodic Other lower respiratory disease (1 source) Hypoxemia; Translations: [Hypoxemia] Onset: 9 Episodic Other lower respiratory disease (1 source) Hypoxemia; Translations: [Hypoxemia] Onset: 9 Episodic Other nervous system disorders (2 sources) Skin sensation disturbance; Translations: [Other disturbances of skin sensation] Onset: 9 Episodic Pneumonia (except that caused by tuberculosis or sexually transmitted disease) (7 sources) Community acquired pneumonia; Translations: [Pneumonia, unspecified organism] Onset: 1 05-16-2021 Episodic Residual codes; unclassified (17 sources) Edema of lower extremity; Translations: [Edema] Onset: 4 Resolved: 5 11-30-2023 Episodic Residual codes; unclassified (1 source) Pain, unspecified; Translations: [Pain, unspecified] Resolved: 1 Episodic Residual codes; unclassified (1 source) Pain; Translations: [Pain, unspecified] Resolved: 1 Episodic Residual codes; unclassified (1 source) Requires influenza virus vaccination; Translations: [Need for prophylactic vaccination and inoculation, Influenza] Onset: 7 Episodic Screening and history of mental health and substance abuse codes (20 sources) Ex-smoker; Translations: [Personal history of tobacco use] Onset: 7 12-02-2024 Episodic Comment on above: quit 1999; Unclassified (20 sources) Patient encounter status; Translations: [Encounter for procedure] Unclassified (1 source) Chronic cough R05.3 Unclassified (4 sources) Onset: 4 03-05-2024 Urinary tract infections (2 sources) Urethral syndrome, unspecified; 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] Resolved: 1 Episodic Results Test Name Value Interpretation Reference Range Facility Laboratory - Chemistry and C hemistry - challengeOrdered By: Wong Espino on 04-20-2025 Bilirubin Ql (U) Negative [facility] Glucose (U) [Mass/Vol] Negative [facility] Ketones Ql (U) Negative [facility] pH (U) 6.0 [pH] [facility] Specific gravity (U) [Rel density] 1.000 [facility] Urobilinogen (U) [Mass/Vol] 0.2 mg/dL [facility] Laboratory - Specimen inform ationOrdered By: Wong Espino on 04-20-2025 Appearance (U) clear [facility] Color (U) yellow [facility] Laboratory - UrinalysisOrder ed By: Wong Espino on 04-20-2025 Leukocyte esterase Test strip Ql (U) Negative [facility] Nitrite Ql (U) Negative [facility] Protein Ql (U) 15 [facility] No Panel InformationOrdered By: Wong Espino on 04-20-2025 Urine Occult Blood Negative [facility] Optical coherence tomography study reporton 04-01-2025 [facility] Radiology Study observation (narrative) [facility] ECG 12 Leadon 12-02-2024 Sinus bradycardia wi th heart rate of 48 [facility] Work Phone: Basophils Auto (Bld) [#/Vol] on 11-10-2024 Basophils (Bld) [#/Vol] Automated basophil count 0.0-0.1 [facility] Basophils/100 WBC Auto (Bld) on 11-10-2024 Basophils/100 WBC (Bld) Automated basophil % 0.2-2.0 [facility] Eosinophils/100 WBC Auto (Bl d)on 11-10-2024 Eosinophils/100 WBC (Bld) Automated eosinophil % Low 0.9-7.0 [facility] Erythrocyte distribution wid th Auto (RBC) [Ratio]on 11-10-2024 Erythrocyte distribution width (RBC) [Ratio] Erythrocyte distribution width [Ratio] by Automated count 11.0-15.0 [facility] Estimated glomerular filtrat ion rate (GFR) non- Americanon 11-10-2024 GFR/1.73 sq M.predicted among non-blacks MDRD (S/P/Bld) [Vol rate/Area] Estimated glomerular filtration rate (GFR) non- Low >=60 mL/min/1.7 3m 2 [facility] Globulin Calc (S) [Mass/Vol] on 11-10-2024 Globulin (S) [Mass/Vol] Serum globulin measurement by calculation (mass/volume) [facility] Glucose mean value [Mass/vol ume] in Blood Estimated from glycated hemoglobinon 11-10-2024 Average glucose Estimated from glycated hemoglobin (Bld) [Mass/Vol] Glucose mean value [Mass/volume] in Blood Estimated from glycated hemoglobin [facility] Hematocrit Auto (Bld) [Volum e fraction]on 11-10-2024 Hematocrit (Bld) [Volume fraction] Hematocrit [Volume Fraction] of Blood by Automated count 36.0-48.0 [facility] Hemoglobin A1c percentageon 11-10-2024 HbA1c (Bld) [Mass fraction] Hemoglobin A1c percentage 4.5-6.2 [facility] Comment on above: ADA RECOMMENDED LIMI T 4.0 - 6.0ADA THERAPEUTIC TARGET < 7.0ACTION SUGGESTED> 7.0 Hemoglobin [Mass/volume] in Bloodon 11-10-2024 Hemoglobin (Bld) [Mass/Vol] Hemoglobin [Mass/volume] in Blood 12.0-16.0 [facility] Laboratory - Chemistry and C hemistry - challengeon 11-10-2024 Albumin [Mass/Vol] 3.3 g/dL Low 3.4-5.0 [facility] ALP [Catalytic activity/Vol] 116 U/L 46-116 [facility] ALT [Catalytic activity/Vol] 20 U/L 14-59 [facility] AST [Catalytic activity/Vol] 20 U/L 15-37 [facility] Bilirubin [Mass/Vol] 0.5 mg/dL 0.2-1.0 [facility] Calcium [Mass/Vol] 8.2 mg/dL Low 8.5-10.1 [facility] Chloride [Moles/Vol] 104 mmol/L 98-107 [facility] CO2 [Moles/Vol] 28.5 mmol/L 21.0-32.0 [facility] Creatinine [Mass/Vol] 1.27 mg/dL High 0.55-1.02 [facility] GFR/1.73 sq M.predicted MDRD (S/P/Bld) [Vol rate/Area] 49 mL/min/{1.73_m2} Low >=60 mL/min/1.7 3m 2 [facility] Glucose [Mass/Vol] 122 mg/dL High 74-106 [facility] Potassium [Moles/Vol] 4.8 mmol/L 3.5-5.1 [facility] Protein [Mass/Vol] 7.1 g/dL 6.4-8.2 [facility] Sodium [Moles/Vol] 139 mmol/L 136-145 [facility] TSH Qn 0.880 m[IU]/L 0.358-3.74 0 [facility] Urea nitrogen [Mass/Vol] 18.0 mg/dL 7.0-18.0 [facility] Urea nitrogen/Creatinine [Mass ratio] 14.2 mg/mg [facility] Laboratory - Hematology and Cell countson 11-10-2024 Immature granulocytes/100 WBC (Bld) 0.2 % 0.0-0.5 [facility] Leukocytes [#/volume] correc paulette for nucleated erythrocytes in Blood by Automated counon 11-10-2024 WBC corrected for nucl RBC Auto (Bld) [#/Vol] Leukocytes [#/volume] corrected for nucleated erythrocytes in Blood by Automated coun 4.0-11.0 [facility] Lymphocytes Auto (Bld) [#/Vo l]on 11-10-2024 Lymphocytes (Bld) [#/Vol] Lymphocytes [#/volume] in Blood by Automated count 1.2-3.8 [facility] Lymphocytes/100 WBC Auto (Bl d)on 11-10-2024 Lymphocytes/100 WBC (Bld) Lymphocytes/100 leukocytes in Blood by Automated count Low 20.5-60.0 [facility] MCH Auto (RBC) [Entitic mass ]on 11-10-2024 MCH (RBC) [Entitic mass] MCH [Entitic mass] by Automated count 26.7-34.0 [facility] MCHC Auto (RBC) [Mass/Vol]on 11-10-2024 MCHC (RBC) [Mass/Vol] MCHC [Mass/volume] by Automated count 29.9-35.2 [facility] MCV Auto (RBC) [Entitic vol] on 11-10-2024 MCV (RBC) [Entitic vol] MCV [Entitic volume] by Automated count 81.0-99.0 [facility] Microalbumin [Mass/volume] i n Urineon 11-10-2024 Albumin DL <= 20 mg/L (U) [Mass/Vol] Microalbumin [Mass/volume] in Urine <=30.0 [facility] Monocytes Auto (Bld) [#/Vol] on 11-10-2024 Monocytes (Bld) [#/Vol] Automated blood monocyte count 0.3-0.8 [facility] Monocytes/100 WBC Auto (Bld) on 11-10-2024 Monocytes/100 WBC (Bld) Automated monocyte % 1.7-12.0 [facility] Neutrophils Auto (Bld) [#/Vo l]on 11-10-2024 Neutrophils (Bld) [#/Vol] Neutrophils [#/volume] in Blood by Automated count 1.4-6.5 [facility] Neutrophils/100 WBC Auto (Bl d)on 11-10-2024 Neutrophils/100 WBC (Bld) Automated neutrophil % 43.0-75.0 [facility] No Panel Informationon 11-10 Urine Random Creatinine 195.00 mg/dL 20.00-300. 00 [facility] Eosinophils # (Auto) 0.1 10 3/uL 0.0-0.7 [facility] Immature Granulocyte # (Auto) 0.02 10 3/uL 0.00-0.03 [facility] Platelet mean volume Auto (B ld) [Entitic vol]on 11-10-2024 Platelet mean volume (Bld) [Entitic vol] Platelet mean volume [Entitic volume] in Blood by Automated count 9.5-13.5 [facility] Platelets Auto (Bld) [#/Vol] on 11-10-2024 Platelets (Bld) [#/Vol] Platelets [#/volume] in Blood by Automated count 150-450 [facility] RBC Auto (Bld) [#/Vol]on RBC (Bld) [#/Vol] Erythrocytes [#/volu me] in Blood by Automated count 4.20-5.40 [facility] Serum or plasma albumin/glob ulin mass ratioon 11-10-2024 Albumin/Globulin [Mass ratio] Serum or plasma albumin/globulin mass ratio [facility] Serum or plasma anion gap de terminationon 11-10-2024 Anion gap [Moles/Vol] Serum or plasma an ion gap determination [facility] Urine microalbumin/creatinin e mass ratioon 11-10-2024 Albumin/Creatinine DL <= 20 mg/L (U) [Mass ratio] Urine microalbumin/creatinine mass ratio 0.0-29.9 [facility] Comment on above: NO MICROALBUMINURIA 0-29 MG/GCLINICAL MICROALBUMINURIA 30-300 MG/GMACROALBUMINURIA >300 MG/G Pulmonary Function Studieson 09-05-2024 Pulmonary Function Studies Pulmonary Function Studies PULMONARY FUNCTION TEST: 08/18/2024 REFERRING PHYSICIAN: Heidi Kuhn M.D.; Wong Espino D.O. REASON FOR TESTING: This [age]-year-old female with a history of smoking one pack a day for 45 years, quit in 1999. Pulmonary function test is performed to evaluate while on high-risk medication. Spirometry shows reduced FEV1 at 62% predicted. Forced vital capacity is normal at 81% predicted. FEV1/forced vital capacity ratio is reduced at 58%. Lung volume testing shows normal total lung capacity at 100% predicted. Residual volume is increased at 128% predicted. RV/total lung capacity ratio is increased at 57%. The lung diffusion capacity is reduced at 52% predicted. In comparison to prior testing on 11/15/2023, the lung diffusion capacity has been stable. IMPRESSION: Spirometry shows moderate obstructive lung disease. Lung volume testing shows air trapping. The lung diffusion capacity is reduced. The lung function has been stable. READ BY: Gino Ingram M.D. ca Dictated: 08/25/2024 [id number] Transcribed: 08/26/2024 cc:Gagan Vergara D.O. [facility] Comment on above: Result Comment: Elec tronically Signed By: Juan Jose SANTANA, Gino X\.br\Date and Time Signed: 09/05/24 15:31 EST Laboratory - Chemistry and C hemistry - challengeon 06-27-2024 Bilirubin Ql (U) Negative [facility] Glucose (U) [Mass/Vol] Negative [facility] Ketones Ql (U) Negative [facility] pH (U) 6.0 [pH] [facility] Specific gravity (U) [Rel density] 1.010 [facility] Urobilinogen (U) [Mass/Vol] 0.2 mg/dL [facility] Laboratory - Specimen inform ationon 06-27-2024 Appearance (U) cloudy [facility] Color (U) yellow [facility] Laboratory - Urinalysison Leukocyte esterase Test strip Ql (U) Negative [facility] Nitrite Ql (U) Negative [facility] Protein Ql (U) Negative [facility] No Panel Informationon 06-27 Urine Occult Blood Negative [facility] ADRENOCORTICOTROPIC HORMONE PLon 06-24-[address] 10.9 pg/mL 7.2 - 63.3 pg/mL [facility] Comment on above: ACTH reference inter wander for samples collected between 7 and 10 AM. Performed at: [email or web address] [id number] Employment Services Director: Teja Washburn PhD, Phone: [phone] [facility] Adrenocorticotropic Hormone PLon 06-23-[address] 10.9 pg/mL Normal 7.2-63.3 [facility] Comment on above: Result Comment: ACTH reference interval for samples collected between 7 and 10 AM. Performed at: [email or web address] [id number] Employment Services Director: Teja Washburn PhD, Phone: [phone] PERFORMED BY: [place] [id number] PATHOLOGIST EDIPHONE OPERATOR CHUCK PERALTA M.D. Performed By: #### C EA, CMP, CBC #### [address] Albumin [Mass/volume] in Ser um or Plasma by Bromocresol green (BCG) dye binding methoOrdered By: Bertha Christianson on 06-23-2024 Albumin BCG dye [Mass/Vol] 3.8 g/dL 3.5-5.7 [facility] CBC W Auto Differential pane l (Bld)on 06-23-2024 Basophils (Bld) [#/Vol] 0.0 10*3/uL 0.0 - 0.2 10*3/uL [facility] Basophils/100 WBC Manual cnt (Syn fld) 0.6 % . [facility] Eosinophils (Bld) [#/Vol] 0.0 10*3/uL 0.0 - 0.45 10*3/uL [facility] Eosinophils/100 WBC Manual cnt (Syn fld) 0.5 % . [facility] Erythrocyte distribution width (RBC) [Ratio] 14.5 % 11.9 - 15.3 % [facility] Hematocrit (Bld) [Volume fraction] 40.3 % 34.0 - 46.4 % [facility] Hemoglobin (Bld) [Mass/Vol] 13.6 g/dL 11.8 - 15.4 g/dL [facility] Lymphocytes (Bld) [#/Vol] 1.2 10*3/uL 1.00 - 4.8 10*3/uL [facility] Lymphocytes/100 WBC Manual cnt (Syn fld) 15.6 % . [facility] MCH (RBC) [Entitic mass] 31.5 pg 24.7 - 34.3 pg [facility] MCHC (RBC) [Mass/Vol] 33.8 g/dL 32.0 - 35.0 g/dL [facility] MCV (RBC) [Entitic vol] 93.2 fL 80 - 100 fL [facility] Monocytes (Bld) [#/Vol] 0.5 10*3/uL 0.0 - 0.8 10*3/uL [facility] Monocytes+Macrophages/ 100 WBC Manual cnt (Syn fld) 7.2 % . [facility] Neutrophils (Bld) [#/Vol] 5.7 10*3/uL 1.8 - 7.7 10*3/uL [facility] Neutrophils/100 WBC Manual cnt (Syn fld) 76.1 % . [facility] NRBC 0.1 /100{WBC} 0 - 0.5 /100{WBC} [facility] Platelet mean volume (Bld) [Entitic vol] 7.6 fL 6.3 - 10.7 fL [facility] Platelets (Bld) [#/Vol] 210 10*3/uL 150 - 450 10*3/uL [facility] RBC LM.HPF (Urine sed) [#/Area] 4.32 /[HPF] 3.60 - 5.00 [facility] WBC (Bld) [#/Vol] 7.5 10*3/uL 3.8 - 11.6 10*3/uL [facility] WBC LM.HPF (Urine sed) [#/Area] 7.5 10*3/uL 3.8 - 11.6 10*3/uL [facility] w [facility] [place] [address] CT Scan Report Signed Patient: Melida Valerio MR#: [id number] 6 : 1940 Acct:[id number] Age/Sex: 84 / F ADM Date: 06/23/24 Loc: [facility]: [facility] Dr: Bertha Christianson II DO Copies to: Bertha Christianson II, DO Ordering Provider: Bertha Christianson II, DO Date of Service: 06/23/24 [...] IMPRESSION: No significant interval change. Perihilar scarring/opacity is redemonstrated, right greater than left. No pathologically enlarged mediastinal or hilar lymph nodes. There is a 2.1 cm nodule in the left adrenal gland which is unchanged. There is hypoattenuation of the liver parenchyma suggesting hepatic steatosis. Uncomplicated colonic diverticula are noted. Impression dictated by: Scar Lawson M.D.06/23/2024 5:53 PM Dictation Location: [place] [address] Transcribed By: [facility] 06/23/241752 Dictated By: Scar Lawson II, MD 06/23/24 174 Signed By: 06/23/241752 Normal [facility] Complete Blood Count Auto Di ffOrdered By: Bertha Christianson on 06-23-2024 Basophils (Bld) [#/Vol] 0.0 10*3/uL 0.0-0.2 [facility] Comment on above: Result Comment: PERF ORMED BY: [place] [address] PATHOLOGIST EDIPHONE OPERATOR CHUCK PERALTA M.D. Performed By: #### C EA, CMP, CBC #### [place] [address] [place] Basophils/100 WBC (Bld) 0.6 % . [facility] Comment on above: Performed By: #### C EA, CMP, CBC #### [place] [address] [place] Eosinophils (Bld) [#/Vol] 0.0 10*3/uL 0.0-0.45 [facility] Comment on above: Performed By: #### C EA, CMP, CBC #### [address] Eosinophils/100 WBC (Bld) 0.5 % . [facility] Comment on above: Performed By: #### C EA, CMP, CBC #### [address] Erythrocyte distribution width (RBC) [Ratio] 14.5 % 11.9-15.3 [facility] Comment on above: Performed By: #### C EA, CMP, CBC #### [address] Hematocrit (Bld) [Volume fraction] 40.3 % 34.0-46.4 [facility] Comment on above: Performed By: #### C EA, CMP, CBC #### [place] [address] [place] Hemoglobin (Bld) [Mass/Vol] 13.6 g/dL 11.8-15.4 [facility] Comment on above: Performed By: #### C EA, CMP, CBC #### [address] Lymphocytes (Bld) [#/Vol] 1.2 10*3/uL 1.00-4.8 [facility] Comment on above: Performed By: #### C EA, CMP, CBC #### [facility] [address] [place] [address] [place] Lymphocytes/100 WBC (Bld) 15.6 % . [facility] Comment on above: Performed By: #### C EA, CMP, CBC #### [facility] [address] MCH (RBC) [Entitic mass] 31.5 pg 24.7-34.3 [facility] Comment on above: Performed By: #### C EA, CMP, CBC #### [facility] [address] MCV (RBC) [Entitic vol] 93.2 fL 80-100 [facility] Comment on above: Performed By: #### C EA, CMP, CBC #### [facility] [address] [place] [address] [place] Monocytes (Bld) [#/Vol] 0.5 10*3/uL 0.0-0.8 [facility] Comment on above: Performed By: #### C EA, CMP, CBC #### [facility] [address] [place] [address] [place] Monocytes/100 WBC (Bld) 7.2 % . [facility] Comment on above: Performed By: #### C EA, CMP, CBC #### [facility] [address] [place] [address] [place] Neutrophils (Bld) [#/Vol] 5.7 10*3/uL 1.8-7.7 [facility] Comment on above: Performed By: #### C EA, CMP, CBC #### [facility] [address] [place] [id number] [place] Neutrophils/100 WBC (Bld) 76.1 % . [facility] Comment on above: Performed By: #### C EA, CMP, CBC #### [facility] [address] Platelet mean volume (Bld) [Entitic vol] 7.6 fL 6.3-10.7 [facility] Comment on above: Performed By: #### C EA, CMP, CBC #### [address] Platelets (Bld) [#/Vol] 210 10*3/uL 150-450 [facility] Comment on above: Performed By: #### C EA, CMP, CBC #### [address] RBC (Bld) [#/Vol] 4.32 10*6/uL 3.60-5.00 [facility] Comment on above: Performed By: #### C EA, CMP, CBC #### [address] WBC (Bld) [#/Vol] 7.5 10*3/uL 3.8-11.6 [facility] Comment on above: Performed By: #### C EA, CMP, CBC #### [address] Complete Blood Count Auto Di ffon 06-23-2024 Mean Corpuscular HGB Conc 33.8 g/dL Normal 32.0-35.0 [facility] Comment on above: Performed By: #### C EA, CMP, CBC #### [address] NRBC% 0.1 /100{WBC} Normal 0-0.5 [facility] Comment on above: Performed By: #### C EA, CMP, CBC #### [address] Comprehensive Metabolic Pane raul 06-23-2024 Albumin [Mass/Vol] 3.8 g/dL Normal 3.5-5.7 [facility] Comment on above: Order Comment: Stat for CT and MRI per Sindhu pt still needs labs Performed By: #### C MP, TSH3, [id number], T4F, JULY, FE and TIBC #### [address] Creatinine Clr Calc Pharmacy 52.37 Normal [facility] Comment on above: Order Comment: Stat for CT and MRI per Sindhu pt still needs labs Performed By: #### C MP, TSH3, [id number], T4F, JULY, FE and TIBC #### [facility] [address] [place] [address] GFR/1.73 sq M.predicted MDRD (S/P/Bld) [Vol rate/Area] mL/min/{1.73_m2} Normal [facility] Comment on above: Order Comment: Stat for CT and MRI per Sindhu pt still needs labs Performed By: #### C MP, TSH3, [id number], T4F, JULY, FE and TIBC #### [facility] [address] [place] [address] Comprehensive Metabolic Pane lOrdered By: Bertha Christianson on 06-23-2024 Albumin/Globulin [Mass ratio] 1.3 {ratio} [facility] Comment on above: Order Comment: Stat for CT and MRI per Sindhu pt still needs labs Performed By: #### C MP, TSH3, [id number], T4F, JULY, FE and TIBC #### [facility] [address] [place] [address] ALP [Catalytic activity/Vol] 75 U/L 34-104 [facility] Comment on above: Order Comment: Stat for CT and MRI per Sindhu pt still needs labs Performed By: #### C MP, TSH3, [id number], T4F, JULY, FE and TIBC #### [facility] [address] [place] [address] ALT [Catalytic activity/Vol] 14 U/L 7-52 [facility] Comment on above: Order Comment: Stat for CT and MRI per Sindhu pt still needs labs Performed By: #### C MP, TSH3, [id number], T4F, JULY, FE and TIBC #### [address] Anion gap [Moles/Vol] 9.3 mmol/L 6.0-15.0 [facility] Comment on above: Order Comment: Stat for CT and MRI per Sindhu pt still needs labs Performed By: #### C MP, TSH3, [id number], T4F, JULY, FE and TIBC #### [address] AST [Catalytic activity/Vol] 19 U/L 13-39 [facility] Comment on above: Order Comment: Stat for CT and MRI per Sindhu pt still needs labs Performed By: #### C MP, TSH3, [id number], T4F, JULY, FE and TIBC #### [address] Bilirubin [Mass/Vol] 0.5 mg/dL 0.3-1.0 [facility] Comment on above: Order Comment: Stat for CT and MRI per Sindhu pt still needs labs Performed By: #### C MP, TSH3, [id number], T4F, JULY, FE and TIBC #### [address] Calcium [Mass/Vol] 8.8 mg/dL 8.6-10.3 [facility] Comment on above: Order Comment: Stat for CT and MRI per Sindhu pt still needs labs Performed By: #### C MP, TSH3, [id number], T4F, JULY, FE and TIBC #### [address] Chloride [Moles/Vol] 107 mmol/L 98-107 [facility] Comment on above: Order Comment: Stat for CT and MRI per Sindhu pt still needs labs Performed By: #### C MP, TSH3, [id number], T4F, JULY, FE and TIBC #### [address] CO2 [Moles/Vol] 26.8 mmol/L 21.0-31.0 [facility] Comment on above: Order Comment: Stat for CT and MRI per Sindhu pt still needs labs Performed By: #### C MP, TSH3, [id number], T4F, JULY, FE and TIBC #### [address] Creatinine [Mass/Vol] 0.88 mg/dL 0.60-1.20 [facility] Comment on above: Order Comment: Stat for CT and MRI per Sindhu pt still needs labs Performed By: #### C MP, TSH3, [id number], T4F, JULY, FE and TIBC #### [facility] [address] Globulin (S) [Mass/Vol] 3.0 g/dL [facility] Comment on above: Order Comment: Stat for CT and MRI per Sindhu pt still needs labs Performed By: #### C MP, TSH3, [id number], T4F, JULY, FE and TIBC #### [facility] [address] [place] [address] Glucose [Mass/Vol] 105 mg/dL High 70-100 [facility] Comment on above: Order Comment: Stat for CT and MRI per Sindhu pt still needs labs Result Comment: [place] Glucose Reference Range is dependent on time and content of last meal. Glucose of more than 200 mg/dL in a nonstressed, ambulatory subject supports the diagnosis of Diabetes Mellitus. ADA recommended reference range Performed By: #### C MP, TSH3, [id number], T4F, JULY, FE and TIBC #### [facility] [address] [place] [address] ADA recommended refe rence rangeRandom Glucose Reference Range is dependent on time and content of last meal. Glucose of more than 200 mg/dL in a nonstressed, ambulatory subject supports the diagnosis of Diabetes Mellitus. Potassium [Moles/Vol] 4.1 mmol/L 3.5-5.1 [facility] Comment on above: Order Comment: Stat for CT and MRI per Sindhu pt still needs labs Performed By: #### C MP, TSH3, [id number], T4F, JULY, FE and TIBC #### [address] Protein [Mass/Vol] 6.8 g/dL 6.4-8.9 [facility] Comment on above: Order Comment: Stat for CT and MRI per Sindhu pt still needs labs Performed By: #### C MP, TSH3, [id number], T4F, JULY, FE and TIBC #### [facility] [address] Sodium [Moles/Vol] 139 mmol/L 136-145 [facility] Comment on above: Order Comment: Stat for CT and MRI per Sindhu pt still needs labs Performed By: #### C MP, TSH3, [id number], T4F, JULY, FE and TIBC #### [facility] [address] Urea nitrogen [Mass/Vol] 15 mg/dL 7-25 [facility] Comment on above: Order Comment: Stat for CT and MRI per Sindhu pt still needs labs Performed By: #### C MP, TSH3, [id number], T4F, JULY, FE and TIBC #### [facility] [address] [place] [address] FerritinOrdered By: Bertha Christianson on 06-23-2024 Ferritin [Mass/Vol] 37.6 ng/mL 11.0-306.8 [facility] Comment on above: Order Comment: Stat for CT and MRI per Sindhu pt still needs labs Performed By: #### C MP, TSH3, [id number], T4F, JULY, FE and TIBC #### [facility] [address] [place] [address] Folate [Mass/volume] in Seru m or PlasmaOrdered By: Bertha Christianson on 06-23-2024 Folate [Mass/Vol] 37.0 ng/mL >5.9 [facility] Comment on above: Folate reference ran ge: >5.9 ng/mlThe WHO technical consultation on folate and vitamin [id number] has determined that folate concentrations lessthan 4 ng/ml are considered deficient. Free T4 (Free Thyroxine)Orde red By: Bertha Christianson on 06-23-2024 Free T4 [Mass/Vol] 1.37 ng/dL High 0.61-1.12 [facility] Comment on above: Order Comment: Stat for CT and MRI per Sindhu pt still needs labs Performed By: #### C EA, CMP, CBC #### [address] ISTAT XRAY CREon 06-23-2024 Creatinine [Mass/Vol] 0.9 mg/dL 0.6 - 1.3 mg/dL [facility] Comment on above: ER/ESD physician is notified/shown all ISTAT results. Critical values may be confirmed by laboratory testing if deemed necessary by ER attending doctor. ISTAT GFR > 60.0 [facility] ISTAT XRay CREOrdered By: Heriberto Christianson on 06-23-2024 Creatinine [Mass/Vol] 0.9 mg/dL 0.6-1.3 [facility] Comment on above: Result Comment: ER/E SD physician is notified/shown all ISTAT results. Critical values may be confirmed by laboratory testing if deemed necessary by ER attending doctor. Performed By: #### I SCRE #### [address] ER/ESD physician is notified/shown all ISTAT results.Critical values may be confirmed by laboratory testing ifdeemed necessary by ER attending doctor. ISTAT XRay CREon 06-23-2024 ISTAT GFR > 60.0 Normal [facility] Comment on above: Result Comment: PERF ORMED BY: [place] [address] PATHOLOGIST EDIPHONE OPERATOR CHUCK PERALTA M.D. Performed By: #### I SCRE #### [address] Iron and TIBC Profileon % Iron Saturation 22.8 % Normal 20-50 [facility] Comment on above: Order Comment: Stat for CT and MRI per Sindhu pt still needs labs Performed By: #### C MP, TSH3, [id number], T4F, JULY, FE and TIBC #### [address] Total Iron Binding Capacity 298 ug/dL Normal 255-450 [facility] Comment on above: Order Comment: Stat for CT and MRI per Sindhu pt still needs labs Performed By: #### C MP, TSH3, [id number], T4F, JULY, FE and TIBC #### [facility] [address] Iron and TIBC ProfileOrdered By: Bertha Christianson on 06-23-2024 Iron [Mass/Vol] 68 ug/dL 50-212 [facility] Comment on above: Order Comment: Stat for CT and MRI per Sindhu pt still needs labs Performed By: #### C MP, TSH3, [id number], T4F, JULY, FE and TIBC #### [facility] [address] Transferrin [Mass/Vol] 213 mg/dL 203-362 [facility] Comment on above: Order Comment: Stat for CT and MRI per Sindhu pt still needs labs Performed By: #### C MP, TSH3, [id number], T4F, JULY, FE and TIBC #### [facility] [address] Iron binding capacity [Mass/ volume] in Serum or PlasmaOrdered By: Bertha Christianson on 06-23-2024 Iron binding capacity [Mass/Vol] 298 ug/dL 255-450 [facility] Iron saturation [Mass Fracti on] in Serum or PlasmaOrdered By: Bertha Christianson on 06-23-2024 Iron saturation [Mass fraction] 22.8 % 20-50 [facility] Leukocytes [#/volume] correc paulette for nucleated erythrocytes in Blood by Automated counOrdered By: Bertha Christianson on 06-23-2024 WBC corrected for nucl RBC Auto (Bld) [#/Vol] 7.5 10*3/uL 3.8-11.6 [facility] MCHC Auto (RBC) [Mass/Vol]Or dered By: Bertha Christianson on 06-23-2024 MCHC (RBC) [Mass/Vol] 33.8 g/dL 32.0-35.0 [facility] No Panel InformationOrdered By: Bertha Christianson on 06-23-2024 Bedside Estimated GFR (eGFR) > 60.0 [facility] Adrenocorticotropic Hormone 10.9 pg/mL 7.2-63.3 [facility] Comment on above: ACTH reference inter wander for samples collected between 7 and10 AM.Performed at: [facility] [id number] Director: Teja Washburn PhD, Phone: [phone] Estimated GFR (CKD-EPI) > 60.0 mL/Min [facility] Creatinine Clearance (Chem 52.37 [facility] Nucleated erythrocytes [Pres ence] in Blood by Automated countOrdered By: Bertha Christianson on 06-23-2024 Nucleated RBC Auto Ql (Bld) 0.1 /100{WBC} 0-0.5 [facility] Thyroid Stimulating HormoneO rdered By: Bertha Christianson on 06-23-2024 TSH Qn 1.56 m[IU]/L 0.45-5.33 [facility] Comment on above: Order Comment: Stat for CT and MRI per Sindhu pt still needs labs Result Comment: PERF ORMED BY: [place] [address] PATHOLOGIST EDIPHONE OPERATOR CHUCK PERALTA M.D. Performed By: #### C EA, CMP, CBC #### [facility] [address] [place] [address] Vit. B12/Folate ProfileOrder ed By: Bertha Christianson on 06-23-2024 Cobalamin (Vitamin B12) [Mass/Vol] 416 pg/mL 180-914 [facility] Comment on above: Order Comment: Stat for CT and MRI per Sindhu pt still needs labs Performed By: #### C MP, TSH3, [id number], T4F, JULY, FE and TIBC #### [facility] [address] [place] [address] [place] Vit. B12/Folate Profileon Folate 37.0 ng/mL Normal >5.9 [facility] Comment on above: Order Comment: Stat for CT and MRI per Sindhu pt still needs labs Result Comment: Kira te reference range: >5.9 ng/ml The WHO technical consultation on folate and vitamin b12 deficiencies has determined that folate concentrations less than 4 ng/ml are considered deficient. Performed By: #### C MP, TSH3, [id number], T4F, JULY, FE and TIBC #### [address] Laboratory - Chemistry and C hemistry - challengeon 06-13-2024 Bilirubin Ql (U) Negative [facility] Glucose (U) [Mass/Vol] Negative [facility] Ketones Ql (U) Negative [facility] pH (U) 6.0 [pH] [facility] Specific gravity (U) [Rel density] 1.010 [facility] Urobilinogen (U) [Mass/Vol] 0.2 mg/dL [facility] Laboratory - Specimen inform ationon 06-13-2024 Appearance (U) cloudy [facility] Color (U) yellow [facility] Laboratory - Urinalysison Leukocyte esterase Test strip Ql (U) +++ [facility] Nitrite Ql (U) Negative [facility] Protein Ql (U) + [facility] No Panel Informationon 06-13 Urine Occult Blood trace [facility] Optical coherence tomography study reporton 06-03-2024 [facility] Radiology Study observation (narrative) [facility] ECG 12 Leadon 03-05-2024 Sinus bradycardia Otherwise normal EKG QTc 475 ms [facility] Work Phone: Physician Orderon 03-05-2024 Physician Order [id number] Normal [facility] XR Chest 2 Viewson 4 These images are not reportable by radiology and will not be interpreted by Radiologists. IMAGING Laboratory - Chemistry and C hemistry - challengeon 02-12-2024 Bilirubin Ql (U) Negative [facility] Glucose (U) [Mass/Vol] Negative [facility] Ketones Ql (U) Trace [facility] pH (U) 6.5 [pH] [facility] Specific gravity (U) [Rel density] 1.005 [facility] Urobilinogen (U) [Mass/Vol] 0.2 mg/dL [facility] Laboratory - Specimen inform ationon 02-12-2024 Appearance (U) Clear [facility] Color (U) Yellow [facility] Laboratory - Urinalysison Leukocyte esterase Test strip Ql (U) 1+ [facility] Nitrite Ql (U) Negative [facility] Protein Ql (U) 1+ [facility] No Panel Informationon 02-11 Urine Occult Blood Negative [facility] Pulmonary Function Studieson 11-22-2023 Pulmonary Function Studies PULMONARY FUNCTION TEST: 11/15/2023 REQUESTING PROVIDER: Wen Cadena M.D., F.A.C.C. REASON FOR TESTING: High-risk medication. Spirometry results are acceptable and reproducible. The FVC was 1.97 liters or 78% of predicted. FEV1 was 1.06 liters or 56% of predicted with a ratio of 54%. Lung volumes showed a total lung capacity of 108% of predicted, residual volume of 149% of predicted with a ratio of 63%. Diffusion capacity of carbon monoxide was 54% of predicted and when adjusted to alveolar volume at 67% of predicted. IMPRESSION: Pulmonary function test results are suggestive of a moderately severe degree of obstructive lung disease with the presence of air trapping and a moderate decrease in the diffusion capacity. When compared to the patient's prior pulmonary function test performed on April 19, 2023, there has been no significant change since then. READ BY: Michael Lane M.D. ca Dictated: 11/16/2023 [id number] Transcribed: 11/17/2023 cc:Wen Cadena M.D., F.A.C.C. [facility] Comment on above: Result Comment: Elec tronically Signed By: Domingo SANTANA, Michael Curran\.br\Date and Time Signed: 11/22/23 22:38 EST XR Chest 2 Viewson 4 XR Chest 2 Views Exam Date/Time: 11/15/2023 10:48 EST Reason for Exam: I48.0 Z79.899 Report IMPRESSION: NO RADIOGRAPHIC EVIDENCE OF ACTIVE DISEASE IN THE CHEST. CLINICAL INFORMATION: I48.0 Z79.899 COMPARISON: APRIL 19, 2023 FINDINGS: 2 views. Mediport and catheter unchanged. Osseous structures intact. Cardiopericardial silhouette normal. Aorta calcified, stable. Pulmonary vasculature normal. Stable scarring right middle lung. Lungs otherwise clear. Ordering Provider: Ron Cadena FINAL REPORT Dictated: 11/16/2023 9:27 am Wong Lockett MD Signed (Electronic Signature): 11/16/2023 9:27 am Signed by: Wong Lockett MD Transcribed by: TANNER Technologist: DAVID Technical Comments Radiation Dose: Ka,r in mGy = na DAP = na Normal [facility] Brenda 11-15-2023 AST 20 Int._Unit/L Normal 5-43 [facility] Comment on above: Performed By: #### 2 [id number], [id number], [id number], [id number] #### [facility] [address] [place] [address] BMPon 11-15-2023 Anion gap [Moles/Vol] 15 mmol/L Normal 6-16 [facility] Comment on above: Performed By: #### 2 [id number], [id number], [id number], [id number] #### [facility] [address] [place] [address] BUN/Creat Ratio 21 No Units High 10-20 [facility] Comment on above: Performed By: #### 2 457523, 6014667, 8457859, [id number] #### [facility] [address] [place] [address] Calcium [Mass/Vol] 8.9 mg/dL Normal 8.9-11.1 [facility] Comment on above: Performed By: #### 2 294491, 5987156, 4077546, [id number] #### [facility] [address] [place] [address] Chloride [Moles/Vol] 102 mmol/L Normal 101-111 [facility] Comment on above: Performed By: #### 2 793113, 9780763, 5325281, [id number] #### [facility] [address] [place] [address] CO2 [Moles/Vol] 28 mmol/L Normal 21-31 [facility] Comment on above: Performed By: #### 2 268403, 3222833, 2341012, [id number] #### [facility] [address] [place] [address] Creatinine [Mass/Vol] 1.2 mg/dL Normal 0.5-1.3 [facility] Comment on above: Performed By: #### 2 407952, 6909102, 3703506, [id number] #### [facility] [address] [place] [address] Glucose [Mass/Vol] 72 mg/dL Normal 55-199 [facility] Comment on above: Performed By: #### 2 914248, 6777180, 5267681, [id number] #### [facility] [address] [place] [address] Potassium [Moles/Vol] 3.9 mmol/L Normal 3.5-5.3 [facility] Comment on above: Performed By: #### 2 691810, 2632146, 3180232, [id number] #### [facility] [address] [place] [address] Sodium [Moles/Vol] 141 mmol/L Normal 135-145 [facility] Comment on above: Performed By: #### 2 897429, 7085444, 4951783, [id number] #### [facility] [address] [place] [address] Urea nitrogen [Mass/Vol] 25 mg/dL High 5-21 [facility] Comment on above: Performed By: #### 2 004233, 0261505, [id number], [id number] #### [facility] [address] [place] [address] Consent for Treatmenton 0 Consent for Treatment [id number] Normal [facility] [facility] Pulmonary Function Testson 0 11-15-2023 Pulmonary Function Tests [id number] Normal [facility] TSHon 11-15-2023 TSH Qn 1.07 m[IU]/L Normal 0.34-5.60 [facility] Comment on above: Performed By: #### 2 [id number], [id number], [id number] #### [facility] Laboratory [address] [place] [address] eGFRon 11-15-2023 eGFR 45 mL/min/1.73 m2 Low >=59 [facility] Comment on above: Order Comment: Order added by Discern Expert. Performed By: #### 2 [id number], [id number], [id number], [id number] #### [facility] [address] [id number] Alanine aminotransferase [En zymatic activity/volume] in Serum or PlasmaOrdered By: Bertha Christianson on 10-29-2023 ALT [Catalytic activity/Vol] 14 U/L Normal 7-52 [facility] Comment on above: Performed By: #### C LAZARUS, CMP, CBC #### [facility] [address] [id number] [place] Albumin [Mass/volume] in Ser um or Plasma by Bromocresol green (BCG) dye binding methoOrdered By: Bertha Christianson on 10-29-2023 Albumin BCG dye [Mass/Vol] 3.7 g/dL 3.5-5.7 [facility] Alkaline phosphatase [Enzyma tic activity/volume] in Serum or PlasmaOrdered By: Bertha Christianson on 10-29-2023 ALP [Catalytic activity/Vol] 68 U/L Normal 34-104 [facility] Comment on above: Performed By: #### C EA, CMP, CBC #### [facility] [address] [place] [address] [place] Aspartate aminotransferase [ Enzymatic activity/volume] in Serum or PlasmaOrdered By: Bertha Christianson on 10-29-2023 AST [Catalytic activity/Vol] 21 U/L Normal 13-39 [facility] Comment on above: Performed By: #### C LAZARUS CMP, CBC #### [address] Automated basophil %Ordered By: Bertha Christianson on 10-29-2023 Basophils/100 WBC (Bld) 1.0 % Normal . [facility] Comment on above: Performed By: #### C LAZARUS CMP, CBC #### [address] Automated basophil countOrde red By: Bertha Christianson on 10-29-2023 Basophils (Bld) [#/Vol] 0.1 10*3/uL Normal 0.0-0.2 [facility] Comment on above: Result Comment: PERF ORMED BY: [place] [address] PATHOLOGIST EDIPHONE OPERATOR CHUCK PERALTA M.D. Performed By: #### C LAZARUS CMP, CBC #### [address] Automated blood monocyte cou ntOrdered By: Bertha Christianson on 10-29-2023 Monocytes (Bld) [#/Vol] 0.5 10*3/uL Normal 0.0-0.8 [facility] Comment on above: Performed By: #### C LAZARUS CMP, CBC #### [address] Automated eosinophil %Ordere d By: Bertha Christianson on 10-29-2023 Eosinophils/100 WBC (Bld) 1.5 % Normal . [facility] Comment on above: Performed By: #### C EA, CMP, CBC #### [address] Automated eosinophil countOr dered By: Bertha Christianson on 10-29-2023 Eosinophils (Bld) [#/Vol] 0.1 10*3/uL Normal 0.0-0.45 [facility] Comment on above: Performed By: #### C EA, CMP, CBC #### [address] Automated monocyte %Ordered By: Bertha Christianson on 10-29-2023 Monocytes/100 WBC (Bld) 8.8 % Normal . [facility] Comment on above: Performed By: #### C EA, CMP, CBC #### [facility] [address] [place] [address] Automated neutrophil %Ordere d By: Bertha Christianson on 10-29-2023 Neutrophils/100 WBC (Bld) 68.2 % Normal . [facility] Comment on above: Performed By: #### C EA, CMP, CBC #### [address] Bilirubin.total [Mass/volume ] in Serum or PlasmaOrdered By: Bertha Christianson on 10-29-2023 Bilirubin [Mass/Vol] 0.5 mg/dL Normal 0.3-1.0 [facility] Comment on above: Performed By: #### C EA, CMP, CBC #### [address] abdomen pelvis w conon CT abdomen pelvis w con [facility] [place] [address] CT Scan Report Signed Patient: Melida Valerio MR#: [id number] 6 : 1940 Acct:[id number] Age/Sex: 83 / F ADM Date: 10/29/23 Loc: Room: Type: [facility] Attending Dr: Bertha Christianson II DO Copies to: Bertha Christianson II, DO Ordering Provider: Bertha Christianson II, DO Date of Service: 10/29/23 CT/CT abdomen pelvis w con: survailance ([id number]) CT/CT chest w con: survailance CT CHEST, [...] grossly unremarkable. Small bowel appears nondilated. Colonic diverticulosis.[Questiona ble wall thickening involving the transverse colon without inflammatory change. Pelvis:[Urinary bladder is grossly unremarkable. Uterus has been removed. No adnexal mass.] Peritoneum/Retroperitoneu m:No free air, free fluid or lymphadenopathy.[ Abd [...] Medina Jr., D.O.10/29/2023 2:02 PM Dictation Location: [place] [address] Transcribed By: [facility] 10/29/23 1402 Dictated By: Dorian Medina Jr, DO 10/29/23 1356 Signed By: 10/29/23 1402 Normal [facility] Calcium [Mass/volume] in Ser um or PlasmaOrdered By: Bertha Christianson on 10-29-2023 Calcium [Mass/Vol] 8.8 mg/dL Normal 8.6-10.3 [facility] Comment on above: Performed By: #### C EA CMP, CBC #### [facility] [address] Carbon dioxide, total [Moles /volume] in Serum or PlasmaOrdered By: Bertha Christianson on 10-29-2023 CO2 [Moles/Vol] 28.9 mmol/L Normal 21.0-31.0 [facility] Comment on above: Performed By: #### C EA, CMP, CBC #### [address] Chloride [Moles/volume] in S denis or PlasmaOrdered By: Bertha Christianson on 10-29-2023 Chloride [Moles/Vol] 106 mmol/L Normal 98-107 [facility] Comment on above: Performed By: #### C EA, CMP, CBC #### [address] Complete Blood Count Auto Di ffon 10-29-2023 Mean Corpuscular HGB Conc 34.0 g/dL Normal 32.0-35.0 [facility] Comment on above: Performed By: #### C EA, CMP, CBC #### [address] NRBC% 0.1 /100{WBC} Normal 0-0.5 [facility] Comment on above: Performed By: #### C EA, CMP, CBC #### [address] Comprehensive Metabolic Pane raul 10-29-2023 Albumin [Mass/Vol] 3.7 g/dL Normal 3.5-5.7 [facility] Comment on above: Performed By: #### C EA, CMP, CBC #### [address] Creatinine Clr Calc Pharmacy 40.08 Normal [facility] Comment on above: Result Comment: PERF ORMED BY: [place] [address] PATHOLOGIST EDIPHONE OPERATOR CHUCK PERALTA M.D. Performed By: #### C OLIVA ARZATE, CBC #### [address] GFR/1.73 sq M.predicted MDRD (S/P/Bld) [Vol rate/Area] 45.195 mL/min/{1.73_m2} Normal [facility] Comment on above: Performed By: #### C OLIVA ARZATE, CBC #### [address] Creatinine [Mass/volume] in Serum or PlasmaOrdered By: Bertha Christianson on 10-29-2023 Creatinine [Mass/Vol] 1.20 mg/dL Normal 0.60-1.20 [facility] Comment on above: Performed By: #### C OLIVA ARZATE, CBC #### [address] Erythrocyte distribution wid th [Ratio] by Automated countOrdered By: Bertha Christianson on 10-29-2023 Erythrocyte distribution width (RBC) [Ratio] 13.5 % Normal 11.9-15.3 [facility] Comment on above: Performed By: #### C OLIVA ARZATE, CBC #### [address] Erythrocytes [#/volume] in B lood by Automated countOrdered By: Bertha Christianson on 10-29-2023 RBC (Bld) [#/Vol] 4.27 10*6/uL Normal 3.60-5.00 [facility] Comment on above: Performed By: #### C OLIVA ARZATE, CBC #### [place] [address] [place] Glucose [Mass/volume] in Ser um or PlasmaOrdered By: Bertha Christianson on 10-29-2023 Glucose [Mass/Vol] 109 mg/dL High 70-100 [facility] Comment on above: ADA recommended refe rence rangeRandom Glucose Reference Range is dependent on time and content of last meal. Glucose of more than 200 mg/dL in a nonstressed, ambulatory subject supports the diagnosis of Diabetes Mellitus. Result Comment: [place] Glucose Reference Range is dependent on time and content of last meal. Glucose of more than 200 mg/dL in a nonstressed, ambulatory subject supports the diagnosis of Diabetes Mellitus. ADA recommended reference range Performed By: #### C OLIVA ARZATE, CBC #### [address] Hematocrit [Volume Fraction] of Blood by Automated countOrdered By: Bertha Christianson on 10-29-2023 Hematocrit (Bld) [Volume fraction] 39.8 % Normal 34.0-46.4 [facility] Comment on above: Performed By: #### C OLIVA ARZATE, CBC #### [address] Hemoglobin [Mass/volume] in BloodOrdered By: Bertha Christianson on 10-29-2023 Hemoglobin (Bld) [Mass/Vol] 13.5 g/dL Normal 11.8-15.4 [facility] Comment on above: Performed By: #### C OLIVA ARZATE, CBC #### [address] Leukocytes [#/volume] correc paulette for nucleated erythrocytes in Blood by Automated counOrdered By: Bertha Christianson on 10-29-2023 WBC corrected for nucl RBC Auto (Bld) [#/Vol] 5.7 10*3/uL 3.8-11.6 [facility] Leukocytes [#/volume] in Blo od by Automated countOrdered By: Bertha Christianson on 10-29-2023 WBC (Bld) [#/Vol] 5.7 10*3/uL Normal 3.8-11.6 [facility] Comment on above: Performed By: #### C OLIVA ARZATE, CBC #### [place] [address] [place] Lymphocytes [#/volume] in Bl ood by Automated countOrdered By: Bertha Christianson on 10-29-2023 Lymphocytes (Bld) [#/Vol] 1.2 10*3/uL Normal 1.00-4.8 [facility] Comment on above: Performed By: #### C OLIVA ARZATE, CBC #### [address] Lymphocytes/100 leukocytes i n Blood by Automated countOrdered By: Bertha Christianson on 10-29-2023 Lymphocytes/100 WBC (Bld) 20.5 % Normal . [facility] Comment on above: Performed By: #### C OLIVA ARZATE, CBC #### [address] MCH [Entitic mass] by Automa paulette countOrdered By: Bertha Christianson on 10-29-2023 MCH (RBC) [Entitic mass] 31.7 pg Normal 24.7-34.3 [facility] Comment on above: Performed By: #### C OLIVA ARZATE, CBC #### [address] MCHC Auto (RBC) [Mass/Vol]Or dered By: Bertha Christianson on 10-29-2023 MCHC (RBC) [Mass/Vol] 34.0 g/dL 32.0-35.0 [facility] MCV [Entitic volume] by Auto mated countOrdered By: Bertha Christianson on 10-29-2023 MCV (RBC) [Entitic vol] 93.3 fL Normal 80-100 [facility] Comment on above: Performed By: #### C OLIVA ARZATE, CBC #### [address] Neutrophils [#/volume] in Bl ood by Automated countOrdered By: Bertha Christianson on 10-29-2023 Neutrophils (Bld) [#/Vol] 3.9 10*3/uL Normal 1.8-7.7 [facility] Comment on above: Performed By: #### C OLIVA ARZATE, CBC #### [address] No Panel InformationOrdered By: Bertha Christianson on 01-15-2024 Estimated GFR (CKD-EPI) 45.195 mL/Min [facility] Creatinine Clearance (Chem 40.08 [facility] Nucleated erythrocytes [Pres ence] in Blood by Automated countOrdered By: Bertha Christianson on 10-29-2023 Nucleated RBC Auto Ql (Bld) 0.1 /100{WBC} 0-0.5 [facility] Platelet mean volume [Entiti c volume] in Blood by Automated countOrdered By: Bertha Christianson on 10-29-2023 Platelet mean volume (Bld) [Entitic vol] 7.5 fL Normal 6.3-10.7 [facility] Comment on above: Performed By: #### C OLIVA ARZATE, CBC #### [facility] [address] [place] [address] [place] Platelets [#/volume] in Bloo d by Automated countOrdered By: Bertha Christianson on 10-29-2023 Platelets (Bld) [#/Vol] 217 10*3/uL Normal 150-450 [facility] Comment on above: Performed By: #### C OLIVA ARZATE, CBC #### [facility] [address] [place] [address] [place] Potassium [Moles/volume] in Serum or PlasmaOrdered By: Bertha Christianson on 10-29-2023 Potassium [Moles/Vol] 3.8 mmol/L Normal 3.5-5.1 [facility] Comment on above: Performed By: #### C OLIVA ARZATE, CBC #### [facility] [address] [place] [address] [place] Protein [Mass/volume] in Ser um or PlasmaOrdered By: Bertha Christianson on 10-29-2023 Protein [Mass/Vol] 6.7 g/dL Normal 6.4-8.9 [facility] Comment on above: Performed By: #### C LAZARUS CMP, CBC #### [address] Serum globulin measurement b y calculation (mass/volume)Ordered By: Bertha Christianson on 10-29-2023 Globulin (S) [Mass/Vol] 3.0 g/dL [facility] Comment on above: Performed By: #### C OLIVA ARZATE, CBC #### [facility] [address] [place] [address] Serum or plasma albumin/glob ulin mass ratioOrdered By: Bertha Christianson on 10-29-2023 Albumin/Globulin [Mass ratio] 1.2 {ratio} [facility] Comment on above: Performed By: #### C OLIVA ARZATE, CBC #### [address] Serum or plasma anion gap de terminationOrdered By: Bertha Christianson on 10-29-2023 Anion gap [Moles/Vol] 8.9 mmol/L Normal 6.0-15.0 [facility] Comment on above: Performed By: #### C OLIVA ARZATE, CBC #### [address] Serum or plasma carcinoembry onic antigen measurement (mass/volume)Ordered By: Bertha Christianson on 10-29-2023 Carcinoembryonic Ag [Mass/Vol] 2.2 ng/mL 0.0-3.0 [facility] Comment on above: Serial tumor marker results determined by assays using different manufacturers or methods may not be comparable.[facility] manager strategic and method:iwoca UNICEL DXI, 2 SITE IMMUNOENZYMATIC SANDWICH ASSAY. Sodium [Moles/volume] in Ser um or PlasmaOrdered By: Bertha Christianson on 10-29-2023 Sodium [Moles/Vol] 140 mmol/L Normal 136-145 [facility] Comment on above: Performed By: #### C OLIVA ARZATE, CBC #### [address] Urea nitrogen [Mass/volume] in Serum or PlasmaOrdered By: Bertha Christianson on 10-29-2023 Urea nitrogen [Mass/Vol] 23 mg/dL Normal 7-25 [facility] Comment on above: Performed By: #### C OLIVA ARZATE, CBC #### [address] Physician Orderon 10-16-2023 Physician Order [id number] Normal [facility] Basic Metabolic Panelon 10-0 Anion gap [Moles/Vol] 11.0 mmol/L No rt [facility]. Other Calcium [Mass/Vol] 9.3524947 mg/dL Normal 8.5-10 .1 mg/dL [facility] [employer] Other Chloride [Moles/Vol] 101 mmol/L Normal 98-107 mmol/L [facility] [employer] Other CO2 [Moles/Vol] 31.51075182 mmol/L Normal 21.0-3 2.0 mmol/L [facility] Other Creatinine [Mass/Vol] 1.33823359 mg/dL High 0. 55-1.02 mg/dL [facility] [employer] Other Glucose [Mass/Vol] 93 mg/dL Normal 74-106 mg/dL [facility] [employer] Other Potassium [Moles/Vol] 4.92687852 mmol/L Normal 3 .5-5.1 mmol/L [facility] Other Sodium [Moles/Vol] 139 mmol/L Normal 136-145 mmol/L [facility] Other Urea nitrogen [Mass/Vol] 21.5258277 mg/dL High 7.0-18.0 mg/dL [facility] [employer] Other Urea nitrogen/Creatinine [Mass ratio] 17.9 mg/mg [facility] Other Basic Metabolic Panel see note [facility]. Other Basic Metabolic Panel 44 Low >=60 [facility]. Other Basic Metabolic Panel 54 Low >=60 [facility]. Other Automated erythrocytes count in urine sediment (number/area)Ordered By: Bertha Christianson on 04-30-2023 RBC Auto (Urine sed) [#/Area] 0-1 [HPF] 0-4 [facility] Automated leukocytes count i n urine sediment (number/area)Ordered By: Bertha Christianson on 04-30-2023 WBC Auto (Urine sed) [#/Area] 5-9 [HPF] High 0-4 [facility] Bilirubin Test strip Ql (U)O rdered By: Bertha Christianson on 04-30-2023 Bilirubin Ql (U) Negative Negative [facility] Color Auto (U)Ordered By: Heriberto Christianson on 04-30-2023 Color (U) Yellow Yellow [facility] Ketones Auto test strip (U) [Mass/Vol]Ordered By: Bertha Christianson on 04-30-2023 Ketones (U) [Mass/Vol] Negative Negative [facility] - UrinalysisOrder ed By: Bertha Christianson on 04-30-2023 Hyaline casts LM Ql (Urine sed) None seen [LPF] 0-8 [facility] Nitrite Test strip Ql (U)Ord ered By: Bertha Christianson on 04-30-2023 Nitrite Ql (U) Negative Negative [facility] Protein Auto test strip (U) [Mass/Vol]Ordered By: Bertha Christianson on 04-30-2023 Protein (U) [Mass/Vol] Negative Negative [facility] Specific gravity Auto test s trip (U) [Rel density]Ordered By: Bertha Christianson on 04-30-2023 Specific gravity (U) [Rel density] 1.008 1.001-1.03 0 [facility] Squamous epithelial cells de tection in urine sediment by light microscopyOrdered By: Bertha Christianson on 04-30-2023 Epithelial cells.squamous LM Ql (Urine sed) 0-1 [HPF] 0-2 [facility] Urine bacteria detection by automated methodOrdered By: Bertha Christianson on 04-30-2023 Bacteria Auto Ql (U) None seen None Seen [facility] Urine clarity by refractomet ry automatedOrdered By: Bertha Christianson on 04-30-2023 Clarity Refractometry automated (U) Clear Clear [facility] Urine culture routineOrdered By: Bertha Christianson on 04-30-2023 Bacteria identified Cx Nom (U) bacilli - 2 Days [facility] Urine glucose measurement by automated test strip (mass/volume)Ordered By: Bertha Christianson on 04-30-2023 Glucose Auto test strip (U) [Mass/Vol] Normal mg/dL Normal [facility] Urine hemoglobin detection b y automated test stripOrdered By: Bertha Christianson on 04-30-2023 Hemoglobin Auto test strip Ql (U) Negative Negative [facility] Urine leukocyte esterase det ection by automated test stripOrdered By: Bertha Christianson on 04-30-2023 Leukocyte esterase Auto test strip Ql (U) 4+ High Negative [facility] Urobilinogen Auto test strip (U) [Mass/Vol]Ordered By: Bertha Christianson on 04-30-2023 Urobilinogen (U) [Mass/Vol] Normal mg/dL Normal [facility] Yeast detection in urine sed iment by light microscopyOrdered By: Bertha Christianson on 04-30-2023 Yeast LM Ql (Urine sed) None seen [HPF] None Seen [facility] pH Auto test strip (U)Ordere d By: Bertha Christianson on 04-30-2023 pH (U) 6.5 [pH] 5.0-9.0 [facility] Alanine aminotransferase [En zymatic activity/volume] in Serum or PlasmaOrdered By: Bertha Christianson on 04-27-2023 ALT [Catalytic activity/Vol] 18 U/L 7-52 [facility] Albumin [Mass/volume] in Ser um or Plasma by Bromocresol green (BCG) dye binding methoOrdered By: Bertha Christianson on 04-27-2023 Albumin BCG dye [Mass/Vol] 3.8 g/dL 3.5-5.7 [facility] Alkaline phosphatase [Enzyma tic activity/volume] in Serum or PlasmaOrdered By: Bertha Christianson on 04-27-2023 ALP [Catalytic activity/Vol] 86 U/L 34-104 [facility] Aspartate aminotransferase [ Enzymatic activity/volume] in Serum or PlasmaOrdered By: Bertha Christianson on 04-27-2023 AST [Catalytic activity/Vol] 20 U/L 13-39 [facility] Basophils Auto (Bld) [#/Vol] Ordered By: Bertha Christianson on 04-27-2023 Basophils (Bld) [#/Vol] 0.1 10*3/uL 0.0-0.2 [facility] Basophils/100 WBC Auto (Bld) Ordered By: Bertha Christianson on 04-27-2023 Basophils/100 WBC (Bld) 1.2 % . [facility] Bilirubin.total [Mass/volume ] in Serum or PlasmaOrdered By: Bertha Christianson on 04-27-2023 Bilirubin [Mass/Vol] 0.5 mg/dL 0.3-1.0 [facility] Calcium [Mass/volume] in Ser um or PlasmaOrdered By: Bertha Christianson on 04-27-2023 Calcium [Mass/Vol] 8.8 mg/dL 8.6-10.3 [facility] Carbon dioxide, total [Moles /volume] in Serum or PlasmaOrdered By: Bertha Christianson on 04-27-2023 CO2 [Moles/Vol] 29.6 mmol/L 21.0-31.0 [facility] Chloride [Moles/volume] in S denis or PlasmaOrdered By: Bertha Christianson on 04-27-2023 Chloride [Moles/Vol] 104 mmol/L 98-107 [facility] Clostridioides difficile tox in B tcdB gene [Presence] in Stool by JACK with probe deteOrdered By: Bertha Christianson on 04-27-2023 C. difficile toxin B tcdB gene JACK+probe Ql (Stl) Negative Negative [facility] Comment on above: Testing performed by RT-PCR Creatinine [Mass/volume] in Serum or PlasmaOrdered By: Bertha Christianson on 04-27-2023 Creatinine [Mass/Vol] 1.26 mg/dL 0.60-1.20 [facility] Eosinophils Auto (Bld) [#/Vo l]Ordered By: Bertha Christianson on 04-27-2023 Eosinophils (Bld) [#/Vol] 0.1 10*3/uL 0.0-0.45 [facility] Eosinophils/100 WBC Auto (Bl d)Ordered By: Bertha Christianson on 04-27-2023 Eosinophils/100 WBC (Bld) 1.5 % . [facility] Erythrocyte distribution wid th Auto (RBC) [Ratio]Ordered By: Bertha Christianson on 04-27-2023 Erythrocyte distribution width (RBC) [Ratio] 14.2 % 11.9-15.3 [facility] Erythrocyte sedimentation ra te by Photometric methodOrdered By: Bertha Christianson on 04-27-2023 ESR Photometric method (Bld) [Velocity] 26 mm/hr 0-29 [facility] Globulin Calc (S) [Mass/Vol] Ordered By: Bertha Christianson on 04-27-2023 Globulin (S) [Mass/Vol] 3.1 g/dL [facility] Glucose [Mass/volume] in Ser um or PlasmaOrdered By: Bertha Christianson on 04-27-2023 Glucose [Mass/Vol] 118 mg/dL 70-100 [facility] Comment on above: ADA recommended refe rence rangeRandom Glucose Reference Range is dependent on time and content of last meal. Glucose of more than 200 mg/dL in a nonstressed, ambulatory subject supports the diagnosis of Diabetes Mellitus. Hematocrit Auto (Bld) [Volum e fraction]Ordered By: Bertha Christianson on 04-27-2023 Hematocrit (Bld) [Volume fraction] 40.5 % 34.0-46.4 [facility] Hemoglobin [Mass/volume] in BloodOrdered By: Bertha Christianson on 04-27-2023 Hemoglobin (Bld) [Mass/Vol] 13.7 g/dL 11.8-15.4 [facility] Leukocytes [#/volume] correc paulette for nucleated erythrocytes in Blood by Automated counOrdered By: Bertha Christianson on 04-27-2023 WBC corrected for nucl RBC Auto (Bld) [#/Vol] 5.0 10*3/uL 3.8-11.6 [facility] Lymphocytes Auto (Bld) [#/Vo l]Ordered By: Bertha Christianson on 04-27-2023 Lymphocytes (Bld) [#/Vol] 1.3 10*3/uL 1.00-4.8 [facility] Lymphocytes/100 WBC Auto (Bl d)Ordered By: Bertha Christianson on 04-27-2023 Lymphocytes/100 WBC (Bld) 25.8 % . [facility] MCH Auto (RBC) [Entitic mass ]Ordered By: Bertha Christianson on 04-27-2023 MCH (RBC) [Entitic mass] 31.1 pg 24.7-34.3 [facility] MCHC Auto (RBC) [Mass/Vol]Or dered By: Bertha Christiasnon on 04-27-2023 MCHC (RBC) [Mass/Vol] 33.8 g/dL 32.0-35.0 [facility] MCV Auto (RBC) [Entitic vol] Ordered By: Bertha Christianson on 04-27-2023 MCV (RBC) [Entitic vol] 92.2 fL 80-100 [facility] Monocytes Auto (Bld) [#/Vol] Ordered By: Bertha Christianson on 04-27-2023 Monocytes (Bld) [#/Vol] 0.6 10*3/uL 0.0-0.8 [facility] Monocytes/100 WBC Auto (Bld) Ordered By: Bertha Christianson on 04-27-2023 Monocytes/100 WBC (Bld) 11.6 % . [facility] Neutrophils Auto (Bld) [#/Vo l]Ordered By: Bertha Christianson on 04-27-2023 Neutrophils (Bld) [#/Vol] 3.0 10*3/uL 1.8-7.7 [facility] Neutrophils/100 WBC Auto (Bl d)Ordered By: Bertha Christianson on 04-27-2023 Neutrophils/100 WBC (Bld) 59.9 % . [facility] No Panel InformationOrdered By: Bertha Christianson on 04-27-2023 Estimated GFR (CKD-EPI) 42.625 mL/Min [facility] Creatinine Clearance (Chem 37.91 [facility] Nucleated erythrocytes [Pres ence] in Blood by Automated countOrdered By: Bertha Christianson on 04-27-2023 Nucleated RBC Auto Ql (Bld) 0.2 /100{WBC} 0-0.5 [facility] Platelet mean volume Auto (B ld) [Entitic vol]Ordered By: Bertha Christianson on 04-27-2023 Platelet mean volume (Bld) [Entitic vol] 7.3 fL 6.3-10.7 [facility] Platelets Auto (Bld) [#/Vol] Ordered By: Bertha Christianson on 04-27-2023 Platelets (Bld) [#/Vol] 213 10*3/uL 150-450 [facility] Potassium [Moles/volume] in Serum or PlasmaOrdered By: Bertha Christianson on 04-27-2023 Potassium [Moles/Vol] 3.5 mmol/L 3.5-5.1 [facility] Protein [Mass/volume] in Ser um or PlasmaOrdered By: Bertha Christianson on 04-27-2023 Protein [Mass/Vol] 6.9 g/dL 6.4-8.9 [facility] RBC Auto (Bld) [#/Vol]Ordere d By: Bertha Christianson on 04-27-2023 RBC (Bld) [#/Vol] 4.40 10*6/uL 3.60-5.00 [facility] Serum or plasma albumin/glob ulin mass ratioOrdered By: Bertha Christianson on 04-27-2023 Albumin/Globulin [Mass ratio] 1.2 {ratio} [facility] Serum or plasma anion gap de terminationOrdered By: Bertha Christianson on 04-27-2023 Anion gap [Moles/Vol] 9.9 mmol/L 6.0-15.0 [facility] Sodium [Moles/volume] in Ser um or PlasmaOrdered By: Bertha Christianson on 04-27-2023 Sodium [Moles/Vol] 140 mmol/L 136-145 [facility] Urea nitrogen [Mass/volume] in Serum or PlasmaOrdered By: Bertha Christianson on 04-27-2023 Urea nitrogen [Mass/Vol] 20 mg/dL 7-25 [facility] WBC Auto (Bld) [#/Vol]Ordere d By: Bertha Christianson on 04-27-2023 WBC (Bld) [#/Vol] 5.0 10*3/uL 3.8-11.6 [facility] Tobacco Screening.on 023 Tobacco use status [facility] b) No [facility] DO Work Phone: PROF CHEM 8 (BAS METB)on Anion gap [Moles/Vol] 10.6 mmol/L Normal [facility] Comment on above: Performed By: #### B MP #### [facility] [address] [address] [address] Michelle Vargas Calcium [Mass/Vol] 9.1 mg/dL Normal 8.5-10.1 [facility] Comment on above: Performed By: #### B MP #### [facility] [address] [address] [address] Michelle Vargas Chloride [Moles/Vol] 102 mmol/L Normal 98-107 [facility] Comment on above: Performed By: #### B MP #### [facility] [address] [address] [address] Michelle Vargas CO2 [Moles/Vol] 31.4 mmol/L Normal 21.0-32.0 [facility] Comment on above: Performed By: #### B MP #### [facility] [address] [address] [address] Michelle Vargas Creatinine [Mass/Vol] 1.55 mg/dL Critically high 0.55-1.02 [facility] Comment on above: Performed By: #### B MP #### [facility] [address] [address] [address] Michelle Vargas EGFR-AF GABONESE 39 mL/min/1.73m2 Critically low >=60 [facility] Comment on above: Performed By: #### B MP #### [facility] [address] [address] [address] Michelle Vargas EGFR-NON AF GABONESE 32 mL/min/1.73m2 Critically low >=60 [facility] Comment on above: Performed By: #### B MP #### [facility] [address] [address] [address] Michelle Vargas Glucose [Mass/Vol] 114 mg/dL Critically high 74-106 [facility] Comment on above: Performed By: #### B MP #### [facility] [address] [place], [place] [address] Dr. Michelle Vargas Potassium [Moles/Vol] 4.0 mmol/L Normal 3.5-5.1 [facility] Comment on above: Performed By: #### B MP #### [facility] [address] [place], [place] [address] Dr. Michelle Vargas Sodium [Moles/Vol] 140 mmol/L Normal 136-145 [facility] Comment on above: Performed By: #### B MP #### [facility] [id number] Michelle Vargas Urea nitrogen [Mass/Vol] 27.0 mg/dL Critically high 7.0-18.0 [facility] Comment on above: Performed By: #### B MP #### [facility] [address] [place], [place] [address] Dr. Michelle Vargas Urea nitrogen/Creatinine [Mass ratio] 17.4 mg/mg Normal [facility] Comment on above: Performed By: #### B MP #### [facility] [address] [place], [place] [address] Dr. Michelle Vargas Office Visit (Cardiology)on 01-04-2023 Follow-up visit Diagnoses/Problems Assessed Essential hypertension, benign (401.1) (I10) Paroxysmal atrial fibrillation (427.31) (I48.0) Hypothyroidism (244.9) (E03.9) High risk medication use (V58.69) (Z79.899) COPD (chronic obstructive pulmonary disease) (496) (J44.9) Class 1 obesity with body mass index (BMI) of 32.0 to 32.9 in adult (278.00,V85.32) (E66.9,Z68.32) Orders Class 1 obesity with body mass index (BMI) of 32.0 to 32.9 in adult Healthy Weight Tips; Status:Complete - Retrospective Authorization; Done: 04Jan2023 Some eating tips that can help you lose weight.; Status:Complete - Retrospective Authorization; Done: 04Jan2023 Edema, lower extremity, Essential hypertension, benign Start: Spironolactone 25 MG Oral Tablet; TAKE 1 TABLET BY MOUTH DAILY Hypokalemia Stop: Potassium Chloride Leah ER 20 MEQ Oral Tablet Extended Release Basic Metabolic Panel; Status:Active - Retrospective Authorization; Requested for:15Jan2023; Paroxysmal atrial fibrillation Stop: Amiodarone HCl - 200 MG Oral Tablet IO EKG Electrocardiogram- 12 Lead; Status:Complete; Done: 04Jan2023 Start: Amiodarone HCl - 100 MG Oral Tablet; TAKE 1 TABLET DAILY SOB (shortness of breath) on exertion Echocardiogram; Status:Hold For - Scheduling,Retrospective By Protocol Authorization; Requested for:04Jan2023; Unlinked Stop: hydroCHLOROthiazide 25 MG Oral Tablet Patient Instructions Please bring all medicines, vitamins, and herbal supplements with you when you come to the office. Prescriptions will not be filled unless you are compliant with your follow up appointments or have a follow up appointment scheduled as per instruction of your physician. Refills should be requested at the time of your visit. Follow up after testing Amiodarone follow-up per routine Chief Complaint MELIDA VALERIO is being seen for an annual follow-up of. History of Present Illness Patient returns in follow-up of problems as noted. In the interim she has continued to be dyspneic. Her evaluation has been unrevealing. Stress test proved to be normal demonstrating no ischemia no infarct and normal ejection fraction. Sinus rhythm is maintained. Pulmonary function studies demonstrate advanced COPD but no diffusion abnormality that would suggest pulmonary fibrosis. Because of this we believe the high risk medication amiodarone can be continued. Her hypertension appears to be acceptably managed. I advised her and her daughter that I am suspicious that the problem is probably on the basis of her lung disease (COPD) or possibly some sort of adverse effect from her chemotherapy radiation and immunotherapy. They acknowledge she had a wide variety of side effects and problems related to immunotherapy and a lot of her complaints could ultimately be on the basis of this episode of care. Nonetheless we will make certain that there is no underlying cardiomyopathy as a cause of shortness of breath because if there was further pharmacologic intervention would be possible. For the time being, though, we will attempt an adjustment of diuretic therapy to see if there is improvement. Thiazides will be stopped and spironolactone substituted to see if this improves her symptomatology. I also proposed a reduction in amiodarone because of a mild tremor. Surgical History Problems History of Appendectomy History of Cataract surgery History of Cholecystectomy History of Complete colonoscopy History of Hysterectomy History of Lumpectomy History of Tonsillectomy with adenoidectomy History of Venous access port placement Current Meds Medication NameInstruction Advair Diskus 250-50 MCG/DOSE AEPB Amiodarone HCl - 200 MG Oral TabletTake one tablet daily amLODIPine Besylate 5 MG Oral TabletTAKE 1 TABLET DAILY. hydroCHLOROthiazide 25 MG Oral TabletTAKE 1 TABLET DAILY. Levothyroxine Sodium 112 MCG Oral TabletTUES, , SUN, SUN Levothyroxine Sodium 125 MCG Oral Tabletsun, sun, sun LORazepam 0.5 MG Oral TabletTake 1-2 tablets at bedtime for sleep Potassium Chloride Leah ER 20 MEQ Oral Tablet Extended [id number] x 2 doses initially within in the first 12-24 hours then 40MEQ daily. Torsemide 20 MG Oral TabletTAKE 1 TABLET DAILY DIRECTED. Patient did not bring medication list or bottles. Updated verbally with patient Allergies Medication erythromycin Allergy; Hives;; Recorded By: Kati Askew; 07/02/2021 3:19:51 PM Social History Problems Caffeine use (V49.89) (Z78.9) 2 cups coffee daily, occasional tea/soda Consumes alcohol (V49.89) (Z78.9) socially Former smoker (V15.82) (Z87.891) quit 1999 No illicit drug use Review of Systems Constitutional: not feeling tired. Eyes: no eyesight problems. ENT: no hearing loss and no nosebleeds. Cardiovascular: no intermittent leg claudication and as noted in HPI. Respiratory: no chronic cough and no shortness of breath. Gastrointestinal: no change in bowel habits and no blood in stools. Genitourinary: no urinary f (more content not included)... Normal [employer] Tobacco Screening.on 023 Adult depression screening assessment No [facility] DO Work Phone: Fall risk assessment a) No falls within the last year [facility] 250 DO Work Phone: Tobacco use status CP b) No [facility] 250 DO Work Phone: MG MAMM SCREEN 3D SHASHA CADon 12-19-2022 MG MAMM SCREEN 3D SHASHA CAD Patient: MELIDA VALERIO Exam Date: 12/19/2022 : 1940 Gender:F Ordering : DR WONG ESPINO D.O. Admission #: [id number] Family : Order #: [id number] CLICK HERE TO VIEW EXAM RADIOLOGY REPORT PROCEDURE: MAMMOGRAM SCREENING 3D BILATERAL CAD COMPARISON: MG MAMM SCREEN 3D SHASHA CAD, 12/13/2021. MG MAMM SHASHA SCRN W CAD DIG, 10/21/2020. MG MAMM SHASHA DIAG W CAD DIG, 08/19/2019. MG MAMM SHASHA SCRN W CAD DIG, 11/21/2006. INDICATIONS: Screening mammography Calculator Name NCI Breast Cancer Risk Assessment Tool 5 Year Breast Cancer Risk n/a% Lifetime Breast Cancer Risk n/a% Personal Breast Cancer Yes, left breast, age 69 Personal Ovarian Cancer No Treatments chemo radiation Family Cancers Sister with breast cancer at age 42; Mother with breast cancer at age 58; Aunt-maternal with breast cancer at age 60; Mother with uterine cancer at age 81; Mother with bladder cancer at age 82; Aunt-maternal with pancreatic cancer at age 75. LOCATION: [facility] BREAST COMPOSITION: Heterogeneously dense,which may obscure small masses. FINDINGS: DIAGNOSTIC CATEGORY 2--BENIGN FINDING: RIGHT BREAST: No significant suspicious finding. No significant change has occurred. LEFT BREAST: No significant suspicious finding. Stable, chronic postsurgical scarring within posterior lower-outer quadrant. No significant change has occurred. RECOMMENDATIONS: ROUTINE MAMMOGRAM AND CLINICAL EVALUATION IN 12 MONTHS. PLEASE NOTE: A NORMAL MAMMOGRAM DOES NOT EXCLUDE THE POSSIBILITY OF BREAST CANCER. A CLINICALLY SUSPICIOUS PALPABLE LUMP SHOULD BE BIOPSIED. Dictated by: Angelica Salinas M.D. on 12/19/2022 at 14:50 Approved by: Angelica Salinas M.D. on 12/19/2022 at 15:40 Normal [facility] 12-11-2022 [facility] Telephone (OPHTMN) ----- MELIDA VALERIO ([id number]) 1940 F Date Time Provider Department 12/11/22 JAISON MARS During your visit today, we recorded the following information about you: Jaison Mars DO 12/11/2022 8:50 AM Signed IMPRESSION: No acute brain findings. No evidence for an infiltrative process at the skull base. No gross abnormalities of either cavernous sinus and no focal brainstem lesions. Moderate generalized brain volume loss. 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 No abnormal brain parenchymal or meningeal enhancement on this exam. 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 Industrial Refrigeration Mechanic: LAMAR Transcribe Date/Time: Dec 09 2022 3:13P Dictated by : FELIPE PERKINS MD Given the normal MRI will proceed with sfEMG Diana Quiñones 12/13/2022 2:54 PM Signed Contacted the patient and relayed the below message. Patient understands and was given the number to call and schedule. No other questions or concerns at this time. Allergies As of Date: 12/11/2022 Noted Allergy Reaction CLINDAMYCIN 01/16/2017 4 - Hives Comments: Allergic to most antibiotics ending in mycin.??? Date Reviewed: 11/16/2022 Reviewed by: Jaison Mars DO - Fully Assessed Reason for Visit: Results [95] Prescriptions as of 12/13/2022 - heparin 100 unit/mL injection NURSING USE ONLY: USE FOR IMPLANTED VASCULAR ACCESS DEVICE (IVAD) FLUSH. AMBULATORY/OUTPATIENT: PLEASE REORDER UPON HOSPITAL DISCHARGE May access implanted vascular access device (IVAD) as needed for treatment. Before de-accessing port, flush with 10-20ml normal saline and follow with 5 mL heparin (100 units/mL) (if no heparin allergy). De-access port on treatment completion. - amLODIPine (NORVASC) 5 mg tablet amlodipine 5 mg tablet - amiodarone (PACERONE) 200 mg tablet - LORazepam (ATIVAN) 0.5 mg - torsemide (DEMADEX) 20 mg tablet Take 20 mg by mouth once daily. - busPIRone (BUSPAR) 15 mg tablet Buspirone Active 7.5 MG PO Twice daily August 09, 2022 11:00pm - Benazepril-Hydrochlorothi azide 20-25 mg per tablet - omeprazole (PRILOSEC) 20 mg capsule Take 1 capsule by mouth twice daily. - levothyroxine (SYNTHROID) 112 mcg tablet Take 112 mcg by mouth once daily. - levothyroxine (SYNTHROID) 125 mcg tablet Take 125 mcg by mouth. As directed - metoprolol succinate ER (TOPROL XL) 25 mg 24 hr tablet Take 25 mg by mouth once daily. - mirtazapine (REMERON) 15 mg tablet Take 15 mg by mouth as needed. - promethazine (PHENERGAN) 12.5 mg tablet Take 12.5 mg by mouth every 6 hours as needed. - gabapentin (NEURONTIN) 100 mg capsule Take 100 mg by mouth three times daily. - Levothyroxine 112 mcg cap Take 112 mcg by mouth once daily. - hydroCHLOROthiazide (HYDRODIURIL, ESIDRIX) 25 mg tablet Take 25 mg by mouth once daily. - losartan (COZAAR) 50 mg tablet Take 50 mg by mouth once daily. As directed - albuterol HFA (PROVENTIL HFA, VENTOLIN HFA) 90 mcg/actuation inhaler Inhale 2 Puffs as instructed every 6 hours as needed. - fluticasone-salmeterol (ADVAIR DISKUS) 100-50 mcg/dose inhaler Inhale 1 Puff as instructed twice daily. Problem List As Of Date 12/11/2022 Noted Resolved History of breast cancer [Z85.3] 01/16/2017 Iron deficiency anemia [D50.9] 01/16/2018 Encounter Status:Closed by JAISON MARS on 12/11/22 Normal [facility] MR Brain WO and W contrast I Von 12-09-2022 IMPRESSION: No acute brain findings. No evidence for an infiltrative process at the skull base. No gross abnormalities of either cavernous sinus and no focal brainstem lesions. Moderate generalized brain volume loss. 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 No abnormal brain parenchymal or meningeal enhancement on this exam. 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 Industrial Refrigeration Mechanic: LAMAR Transcribe Date/Time: Dec 09 2022 3:13P Dictated by : FELIPE PERKINS MD This examination was interpreted and the report reviewed and electronically signed by: FELIPE PERKINS MD on Dec 09 2022 3:23PM [facility] DIVISION OF RADIOLOGY * * *Final Report* * * DATE OF EXAM: Dec 09 2022 2:52PM [facility] 0295 - MRI BRAIN WO/W IVCON / PROCEDURE REASON: Diplopia * * * * Physician Interpretation * * * * EXAMINATION: MRI BRAIN WO/W IVCON HISTORY: Diplopia. Head pain. 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 TECHNIQUE: Cranial nerve protocol. Imaging without and with gadolinium. MQ: MRBWOW_2 Contrast: 20 mL [facility] [facility] IV COMPARISON: None. RESULT: There is no restricted diffusion on this examination to suggest focal acute ischemia or pathologic brain parenchymal cellularity. Minimal background chronic microvascular ischemic disease within the resolving capacity of this examination. 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 Moderate generalized brain parenchymal volume loss with corresponding ventricular enlargement and prominence of the sulci at the convexities. No evidence for an infiltrative process at the skull base. No gross vascular impingement of lower cranial nerves, no lower cranial nerve nodularity or gross thickening visible on the axial T2 space sequence. Meckel's cave and cavernous sinus regions are grossly normal. No focal brainstem lesions. No gross abnormal enhancement or expansion associated with either cavernous sinus. 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 Otherwise, no abnormal brain parenchymal or meningeal enhancement. Technical large and medium caliber arterial enhancement. Typical enhancement of major cortical draining veins, deep venous structures, and dural venous sinuses. Globes and orbits are unremarkable. No abnormal infiltrative change involving the retrobulbar fat. There are changes related to prior lens replacement. Minor ethmoid mucosal thickening bilaterally. Remaining paranasal sinus chambers, mastoid air cells, and middle ear cavities are clear. DIVISION OF RADIOLOGY Provider, [facility] - 12/09/2022 * * *Final Report* * * DATE OF EXAM: Dec 09 2022 2:52PM [facility] 0295 - MRI BRAIN WO/W IVCON / PROCEDURE REASON: Diplopia * * * * Physician Interpretation * * * * EXAMINATION: MRI BRAIN WO/W IVCON HISTORY: Diplopia. Head pain. 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 TECHNIQUE: Cranial nerve protocol. Imaging without and with gadolinium. MQ: MRBWOW_2 Contrast: 20 mL [facility] [facility] IV COMPARISON: None. RESULT: There is no restricted diffusion on this examination to suggest focal acute ischemia or pathologic brain parenchymal cellularity. Minimal background chronic microvascular ischemic disease within the resolving capacity of this examination. 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 Moderate generalized brain parenchymal volume loss with corresponding ventricular enlargement and prominence of the sulci at the convexities. No evidence for an infiltrative process at the skull base. No gross vascular impingement of lower cranial nerves, no lower cranial nerve nodularity or gross thickening visible on the axial T2 space sequence. Meckel's cave and cavernous sinus regions are grossly normal. No focal brainstem lesions. No gross abnormal enhancement or expansion associated with either cavernous sinus. 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 Otherwise, no abnormal brain parenchymal or meningeal enhancement. Technical large and medium caliber arterial enhancement. Typical enhancement of major cortical draining veins, deep venous structures, and dural venous sinuses. Globes and orbits are unremarkable. No abnormal infiltrative change involving the retrobulbar fat. There are changes related to prior lens replacement. Minor ethmoid mucosal thickening bilaterally. Remaining paranasal sinus chambers, mastoid air cells, and middle ear cavities are clear. IMPRESSION IMPRESSION: No acute brain findings. No evidence for an infiltrative process at the skull base. No gross abnormalities of either cavernous sinus and no focal brainstem lesions. Moderate generalized brain volume loss. 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 No abnormal brain parenchymal or meningeal enhancement on this exam. 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 Industrial Refrigeration Mechanic: PSCB Transcribe Date/Time: Dec 09 2022 3:13P Dictated by : FELIPE PERKINS MD This examination was interpreted and the report reviewed and electronically signed by: FELIPE PERKINS MD on Dec 09 2022 3:23PM EST [facility] Radiology Study observation (narrative) [facility] MR Brain WO and W contrast I VOrdered By: [facility] Provider on 12-09-2022 [facility] MRI BRAIN WO/W IVCONon 12-09 MRI BRAIN WO/W IVCON * * *Final Report* * * DATE OF EXAM: Dec 09 2022 2:52PM [facility] 0295 - MRI BRAIN WO/W IVCON / PROCEDURE REASON: Diplopia * * * * Physician Interpretation * * * * EXAMINATION: MRI BRAIN WO/W IVCON HISTORY: Diplopia. Head pain. 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 TECHNIQUE: Cranial nerve protocol. Imaging without and with gadolinium. MQ: MRBWOW_2 Contrast: 20 mL [facility] IV COMPARISON: None. RESULT: There is no restricted diffusion on this examination to suggest focal acute ischemia or pathologic brain parenchymal cellularity. Minimal background chronic microvascular ischemic disease within the resolving capacity of this examination. 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 Moderate generalized brain parenchymal volume loss with corresponding ventricular enlargement and prominence of the sulci at the convexities. No evidence for an infiltrative process at the skull base. No gross vascular impingement of lower cranial nerves, no lower cranial nerve nodularity or gross thickening visible on the axial T2 space sequence. Meckel's cave and cavernous sinus regions are grossly normal. No focal brainstem lesions. No gross abnormal enhancement or expansion associated with either cavernous sinus. 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 Otherwise, no abnormal brain parenchymal or meningeal enhancement. Technical large and medium caliber arterial enhancement. Typical enhancement of major cortical draining veins, deep venous structures, and dural venous sinuses. Globes and orbits are unremarkable. No abnormal infiltrative change involving the retrobulbar fat. There are changes related to prior lens replacement. Minor ethmoid mucosal thickening bilaterally. Remaining paranasal sinus chambers, mastoid air cells, and middle ear cavities are clear. IMPRESSION: No acute brain findings. No evidence for an infiltrative process at the skull base. No gross abnormalities of either cavernous sinus and no focal brainstem lesions. Moderate generalized brain volume loss. 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 No abnormal brain parenchymal or meningeal enhancement on this exam. 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 Industrial Refrigeration Mechanic: LAMAR Transcribe Date/Time: Dec 09 2022 3:13P Dictated by : FELIPE PERKINS MD This examination was interpreted and the report reviewed and electronically signed by: FELIPE PERKINS MD on Dec 09 2022 3:23PM EST [id number] Normal [facility] Basophils Auto (Bld) [#/Vol] Ordered By: Bertha Christianson on 10-26-2022 Basophils (Bld) [#/Vol] 0.1 10*3/uL 0.0-0.2 [facility] Basophils/100 WBC Auto (Bld) Ordered By: Bertha Christianson on 10-26-2022 Basophils/100 WBC (Bld) 0.9 % . [facility] Body fluid albumin measureme nt (mass/volume)Ordered By: Bertha Christianson on 10-26-2022 Albumin (Body fld) [Mass/Vol] 3.0 g/dL 3.2-5.5 [facility] Creatinine and Glomerular fi ltration rate.predicted panel (S/P/Bld)Ordered By: Ron Cadena on 10-26-2022 Creatinine [Mass/Vol] 1.22 mg/dL 0.44-1.03 [facility] Creatinine and Glomerular fi ltration rate.predicted panel (S/P/Bld)Ordered By: Bertha Christianson on 10-26-2022 Creatinine [Mass/Vol] 1.21 mg/dL 0.44-1.03 [facility] Eosinophils Auto (Bld) [#/Vo l]Ordered By: Bertha Christianson on 10-26-2022 Eosinophils (Bld) [#/Vol] 0.1 10*3/uL 0.0-0.45 [facility] Eosinophils/100 WBC Auto (Bl d)Ordered By: Bertha Christianson on 10-26-2022 Eosinophils/100 WBC (Bld) 1.2 % . [facility] Erythrocyte distribution wid th Auto (RBC) [Ratio]Ordered By: Bertha Christianson on 10-26-2022 Erythrocyte distribution width (RBC) [Ratio] 14.0 % 11.9-15.3 [facility] Estimated glomerular filtrat ion rate (GFR) non- AmericanOrdered By: Ron Cadena on 10-26-2022 GFR/1.73 sq M.predicted among non-blacks MDRD (S/P/Bld) [Vol rate/Area] 42 mL/Min [facility] Estimated glomerular filtrat ion rate (GFR) non- AmericanOrdered By: Bertha Christianson on 10-26-2022 GFR/1.73 sq M.predicted among non-blacks MDRD (S/P/Bld) [Vol rate/Area] 43 mL/Min [facility] Globulin Calc (S) [Mass/Vol] Ordered By: Bertha Christianson on 10-26-2022 Globulin (S) [Mass/Vol] 3.6 g/dL [facility] Hematocrit Auto (Bld) [Volum e fraction]Ordered By: Bertha Christianson on 10-26-2022 Hematocrit (Bld) [Volume fraction] 38.9 % 34.0-46.4 [facility] Hemoglobin [Mass/volume] in BloodOrdered By: Bertha Christianson on 10-26-2022 Hemoglobin (Bld) [Mass/Vol] 12.9 g/dL 11.8-15.4 [facility] Leukocytes [#/volume] correc paulette for nucleated erythrocytes in Blood by Automated counOrdered By: Bertha Christianson on 10-26-2022 WBC corrected for nucl RBC Auto (Bld) [#/Vol] 6.8 10*3/uL 3.8-11.6 [facility] Lymphocytes Auto (Bld) [#/Vo l]Ordered By: Bertha Christianson on 10-26-2022 Lymphocytes (Bld) [#/Vol] 1.1 10*3/uL 1.00-4.8 [facility] Lymphocytes/100 WBC Auto (Bl d)Ordered By: Bertha Christianson on 10-26-2022 Lymphocytes/100 WBC (Bld) 16.5 % . [facility] MCH Auto (RBC) [Entitic mass ]Ordered By: Bertha Christianson on 10-26-2022 MCH (RBC) [Entitic mass] 30.1 pg 24.7-34.3 [facility] MCHC Auto (RBC) [Mass/Vol]Or dered By: Bertha Christianson on 10-26-2022 MCHC (RBC) [Mass/Vol] 33.1 g/dL 32.0-35.0 [facility] MCV Auto (RBC) [Entitic vol] Ordered By: Bertha Christianson on 10-26-2022 MCV (RBC) [Entitic vol] 91.0 fL 80-100 [facility] Monocytes Auto (Bld) [#/Vol] Ordered By: Bertha Christianson on 10-26-2022 Monocytes (Bld) [#/Vol] 0.7 10*3/uL 0.0-0.8 [facility] Monocytes/100 WBC Auto (Bld) Ordered By: Bertha Christianson on 10-26-2022 Monocytes/100 WBC (Bld) 10.8 % . [facility] Neutrophils Auto (Bld) [#/Vo l]Ordered By: Bertha Christianson on 10-26-2022 Neutrophils (Bld) [#/Vol] 4.8 10*3/uL 1.8-7.7 [facility] Neutrophils/100 WBC Auto (Bl d)Ordered By: Bertha Christianson on 10-26-2022 Neutrophils/100 WBC (Bld) 70.6 % . [facility] No Panel InformationOrdered By: Ron Cadena on 10-26-2022 Estimated GFR () 51 mL/Min [facility] Comment on above: GFR estimated refere nce range: According to KDOQI guidelines, <60 ml/min/1.73m2 is sufficient to diagnose a patient with chronic kidney disease. Pharmacy Creatinine Clearance (Chem N/A [facility] No Panel InformationOrdered By: Bertha Christianson on 10-26-2022 Estimated GFR () 52 mL/Min [facility] Comment on above: GFR estimated refere nce range: According to KDOQI guidelines, <60 ml/min/1.73m2 is sufficient to diagnose a patient with chronic kidney disease. Pharmacy Creatinine Clearance (Chem 40.16 [facility] Nucleated erythrocytes [Pres ence] in Blood by Automated countOrdered By: Bertha Christianson on 10-26-2022 Nucleated RBC Auto Ql (Bld) 0.1 /100{WBC} 0-0.5 [facility] Platelet mean volume Auto (B ld) [Entitic vol]Ordered By: Bertha Christianson on 10-26-2022 Platelet mean volume (Bld) [Entitic vol] 7.1 fL 6.3-10.7 [facility] Platelets Auto (Bld) [#/Vol] Ordered By: Bertha Christianson on 10-26-2022 Platelets (Bld) [#/Vol] 306 10*3/uL 150-450 [facility] Protein [Mass/volume] in Ser um or PlasmaOrdered By: Bertha Christianson on 10-26-2022 Protein [Mass/Vol] 6.6 g/dL 6.1-7.9 [facility] RBC Auto (Bld) [#/Vol]Ordere d By: Bertha Christianson on 10-26-2022 RBC (Bld) [#/Vol] 4.28 10*6/uL 3.60-5.00 [facility] Serum or plasma alanine waggoner otransferase measurement without P-5'-P (enzymatic activiOrdered By: Bertha Christianson on 10-26-2022 ALT No additional P-5'-P [Catalytic activity/Vol] 17 U/L 10-60 [facility] Serum or plasma albumin/glob ulin mass ratioOrdered By: Bertha Christianson on 10-26-2022 Albumin/Globulin [Mass ratio] 0.8 {ratio} [facility] Serum or plasma alkaline andrzej sphatase measurement (enzymatic activity/volume)Ordered By: Bertha Christianson on 10-26-2022 ALP [Catalytic activity/Vol] 80 U/L 32-92 [facility] Serum or plasma anion gap de terminationOrdered By: Ron Cadena on 10-26-2022 Anion gap [Moles/Vol] 13.7 mmol/L 6.0-15.0 [facility] Serum or plasma anion gap de terminationOrdered By: Bertha Christianson on 10-26-2022 Anion gap [Moles/Vol] 12.9 mmol/L 6.0-15.0 [facility] Serum or plasma aspartate am inotransferase measurement (enzymatic activity/volume)Ordered By: Ron Cadena on 10-26-2022 AST [Catalytic activity/Vol] 25 U/L 10-42 [facility] Serum or plasma calcium chen urement (mass/volume)Ordered By: Ron Cadena on 10-26-2022 Calcium [Mass/Vol] 8.8 mg/dL 8.2-10.2 [facility] Serum or plasma carcinoembry onic antigen measurement (mass/volume)Ordered By: Bertha Christianson on 10-26-2022 Carcinoembryonic Ag [Mass/Vol] 3.7 ng/mL 0.0-3.0 [facility] Serum or plasma chloride herminio surement (moles/volume)Ordered By: Ron Cadena on 10-26-2022 Chloride [Moles/Vol] 96 mmol/L 95-114 [facility] Serum or plasma glucose chen urement (mass/volume)Ordered By: Ron Cadena on 10-26-2022 Glucose [Mass/Vol] 121 mg/dL 70-100 [facility] Comment on above: ADA recommended refe rence rangeRandom Glucose Reference Range is dependent on time and content of last meal. Glucose of more than 200 mg/dL in a nonstressed, ambulatory subject supports the diagnosis of Diabetes Mellitus. Serum or plasma glucose chen urement (mass/volume)Ordered By: Bertha Christianson on 10-26-2022 Glucose [Mass/Vol] 125 mg/dL 70-100 [facility] Comment on above: ADA recommended refe rence rangeRandom Glucose Reference Range is dependent on time and content of last meal. Glucose of more than 200 mg/dL in a nonstressed, ambulatory subject supports the diagnosis of Diabetes Mellitus. Serum or plasma potassium me asurement (moles/volume)Ordered By: Ron Cadena on 10-26-2022 Potassium [Moles/Vol] 3.2 mmol/L 3.5-5.1 [facility] Serum or plasma potassium me asurement (moles/volume)Ordered By: Bertha Christianson on 10-26-2022 Potassium [Moles/Vol] 3.0 mmol/L 3.5-5.1 [facility] Serum or plasma sodium measu rement (moles/volume)Ordered By: Ron Cadena on 10-26-2022 Sodium [Moles/Vol] 136 mmol/L 136-146 [facility] Serum or plasma sodium measu rement (moles/volume)Ordered By: Bertha Christianson on 10-26-2022 Sodium [Moles/Vol] 135 mmol/L 136-146 [facility] Serum or plasma total biliru bin measurement (mass/volume)Ordered By: Bertha Christianson on 10-26-2022 Bilirubin [Mass/Vol] 0.4 mg/dL 0.3-1.2 [facility] Serum or plasma total carbon dioxide measurement (moles/volume)Ordered By: Ron Cadena on 10-26-2022 CO2 [Moles/Vol] 29.5 mmol/L 22.0-30.0 [facility] Serum or plasma total carbon dioxide measurement (moles/volume)Ordered By: Bertha Christianson on 10-26-2022 CO2 [Moles/Vol] 29.1 mmol/L 22.0-30.0 [facility] Serum or plasma urea nitroge n measurement (mass/volume)Ordered By: Ron Cadena on 10-26-2022 Urea nitrogen [Mass/Vol] 23 mg/dL 9-23 [facility] TSH DL <= 0.005 mIU/L QnOrde red By: Ron Cadena on 10-26-2022 TSH Qn 1.14 m[IU]/L 0.45-5.33 [facility] WBC Auto (Bld) [#/Vol]Ordere d By: Bertha Christianson on 10-26-2022 WBC (Bld) [#/Vol] 6.8 10*3/uL 3.8-11.6 [facility] Radiologyon 10-23-2022 XR Chest 2 Views Normal [facility] [facility] [address] DO Work Phone: Creatinine and Glomerular fi ltration rate.predicted panel (S/P/Bld)Ordered By: Ron Cadena on 09-21-2022 Creatinine [Mass/Vol] 1.30 mg/dL 0.44-1.03 [facility] Estimated glomerular filtrat ion rate (GFR) non- AmericanOrdered By: Ron Cadena on 09-21-2022 GFR/1.73 sq M.predicted among non-blacks MDRD (S/P/Bld) [Vol rate/Area] 39 mL/Min [facility] Glucose mean value [Mass/vol ume] in Blood Estimated from glycated hemoglobinOrdered By: Wong Espino on 09-21-2022 Average glucose Estimated from glycated hemoglobin (Bld) [Mass/Vol] 128 mg/dL [facility] Hemoglobin A1c percentageOrd ered By: Wong Espino on 09-21-2022 HbA1c (Bld) [Mass fraction] 6.1 % High 4.3-5.6 [facility] Comment on above: Increased risk for d iabetes: 5.7 - 6.4diabetes: >6.4glycemic control for adults with diabetes: <7.0 No Panel InformationOrdered By: Ron Cadena on 09-21-2022 Estimated GFR () 48 mL/Min [facility] Comment on above: GFR estimated refere nce range: According to KDOQI guidelines, <60 ml/min/1.73m2 is sufficient to diagnose a patient with chronic kidney disease. Pharmacy Creatinine Clearance (Chem 37.38 [facility] Serum or plasma anion gap de terminationOrdered By: Ron Cadena on 09-21-2022 Anion gap [Moles/Vol] 16.8 mmol/L 6.0-15.0 [facility] Serum or plasma calcium chen urement (mass/volume)Ordered By: Ron Cadena on 09-21-2022 Calcium [Mass/Vol] 8.9 mg/dL 8.2-10.2 [facility] Serum or plasma chloride herminio surement (moles/volume)Ordered By: Ron Cadena on 09-21-2022 Chloride [Moles/Vol] 92 mmol/L 95-114 [facility] Serum or plasma glucose chen urement (mass/volume)Ordered By: Ron Cadena on 09-21-2022 Glucose [Mass/Vol] 132 mg/dL 70-100 [facility] Comment on above: ADA recommended refe rence rangeRandom Glucose Reference Range is dependent on time and content of last meal. Glucose of more than 200 mg/dL in a nonstressed, ambulatory subject supports the diagnosis of Diabetes Mellitus. Serum or plasma potassium me asurement (moles/volume)Ordered By: Ron Cadena on 09-21-2022 Potassium [Moles/Vol] 2.6 mmol/L 3.5-5.1 [facility] Comment on above: Results calledat 143 0 on 09/21/22 Serum or plasma sodium measu rement (moles/volume)Ordered By: Ron Cadena on 09-21-2022 Sodium [Moles/Vol] 137 mmol/L 136-146 [facility] Serum or plasma total carbon dioxide measurement (moles/volume)Ordered By: Ron Cadena on 09-21-2022 CO2 [Moles/Vol] 30.8 mmol/L 22.0-30.0 [facility] Serum or plasma urea nitroge n measurement (mass/volume)Ordered By: Ron Cadena on 09-21-2022 Urea nitrogen [Mass/Vol] 27 mg/dL 9- [facility] Basophils Auto (Bld) [#/Vol] Ordered By: Ron Mcmanus on 08-10-2022 Basophils (Bld) [#/Vol] 0.1 10*3/uL 0.0-0.2 [facility] Basophils/100 WBC Auto (Bld) Ordered By: Ron Mcmanus on 08-10-2022 Basophils/100 WBC (Bld) 1.0 % . [facility] Creatinine and Glomerular fi ltration rate.predicted panel (S/P/Bld)Ordered By: Ron Mcmanus on 08-10-2022 Creatinine [Mass/Vol] 0.94 mg/dL 0.44-1.03 [facility] Eosinophils Auto (Bld) [#/Vo l]Ordered By: Ron Mcmanus on 08-10-2022 Eosinophils (Bld) [#/Vol] 0.1 10*3/uL 0.0-0.45 [facility] Eosinophils/100 WBC Auto (Bl d)Ordered By: Ron Mcmanus on 08-10-2022 Eosinophils/100 WBC (Bld) 2.0 % . [facility] Erythrocyte distribution wid th Auto (RBC) [Ratio]Ordered By: Ron Mcmanus on 08-10-2022 Erythrocyte distribution width (RBC) [Ratio] 13.7 % 11.9-15.3 [facility] Estimated glomerular filtrat ion rate (GFR) non- AmericanOrdered By: Ron Mcmanus on 08-10-2022 GFR/1.73 sq M.predicted among non-blacks MDRD (S/P/Bld) [Vol rate/Area] 57 mL/Min [facility] Hematocrit Auto (Bld) [Volum e fraction]Ordered By: Ron Mcmanus on 08-10-2022 Hematocrit (Bld) [Volume fraction] 41.6 % 34.0-46.4 [facility] Hemoglobin [Mass/volume] in BloodOrdered By: Ron Mcmanus on 08-10-2022 Hemoglobin (Bld) [Mass/Vol] 13.8 g/dL 11.8-15.4 [facility] Laboratory - Hematology and Cell countsOrdered By: Ron Mcmanus on 08-10-2022 Nucleated RBC/100 WBC (Bld) [Ratio] 0.0 % 0-0.5 [facility] Leukocytes [#/volume] in Blo od by Automated countOrdered By: Ron Mcmanus on 08-10-2022 WBC (Bld) [#/Vol] 5.7 10*3/uL 4.5-11.0 [facility] Lymphocytes Auto (Bld) [#/Vo l]Ordered By: Ron Mcmanus on 08-10-2022 Lymphocytes (Bld) [#/Vol] 1.0 10*3/uL 1.00-4.8 [facility] Lymphocytes/100 WBC Auto (Bl d)Ordered By: Ron Mcmanus on 08-10-2022 Lymphocytes/100 WBC (Bld) 17.4 % . [facility] MCH Auto (RBC) [Entitic mass ]Ordered By: Ron Mcmanus on 08-10-2022 MCH (RBC) [Entitic mass] 31.4 pg 24.7-34.3 [facility] MCHC Auto (RBC) [Mass/Vol]Or dered By: Ron Mcmanus on 08-10-2022 MCHC (RBC) [Mass/Vol] 33.3 g/dL 32.0-35.0 [facility] MCV Auto (RBC) [Entitic vol] Ordered By: Ron Mcmanus on 08-10-2022 MCV (RBC) [Entitic vol] 94.3 fL 80-100 [facility] Monocytes Auto (Bld) [#/Vol] Ordered By: Ron Mcmanus on 08-10-2022 Monocytes (Bld) [#/Vol] 0.6 10*3/uL 0.0-0.8 [facility] Monocytes/100 WBC Auto (Bld) Ordered By: Ron Mcmanus on 08-10-2022 Monocytes/100 WBC (Bld) 10.7 % . [facility] Neutrophils Auto (Bld) [#/Vo l]Ordered By: Ron Mcmanus on 08-10-2022 Neutrophils (Bld) [#/Vol] 3.9 10*3/uL 1.8-7.7 [facility] Neutrophils/100 WBC Auto (Bl d)Ordered By: Ron Mcmanus on 08-10-2022 Neutrophils/100 WBC (Bld) 68.9 % . [facility] No Panel InformationOrdered By: Ron Mcmanus on 08-10-2022 Estimated GFR () > 60 mL/Min [facility] Comment on above: GFR estimated refere nce range: According to KDOQI guidelines, <60 ml/min/1.73m2 is sufficient to diagnose a patient with chronic kidney disease. Pharmacy Creatinine Clearance (Chem 52.23 [facility] Platelet mean volume Auto (B ld) [Entitic vol]Ordered By: Ron Mcmanus on 08-10-2022 Platelet mean volume (Bld) [Entitic vol] 7.1 fL 6.3-10.7 [facility] Platelets Auto (Bld) [#/Vol] Ordered By: Ron Mcmanus on 08-10-2022 Platelets (Bld) [#/Vol] 299 10*3/uL 150-450 [facility] RBC Auto (Bld) [#/Vol]Ordere d By: Ron Mcmanus on 08-10-2022 RBC (Bld) [#/Vol] 4.41 10*6/uL 3.60-5.00 [facility] Serum or plasma anion gap de terminationOrdered By: Ron Mcmanus on 08-10-2022 Anion gap [Moles/Vol] 15.4 mmol/L 6.0-15.0 [facility] Serum or plasma calcium chen urement (mass/volume)Ordered By: Ron Mcmanus on 08-10-2022 Calcium [Mass/Vol] 8.9 mg/dL 8.2-10.2 [facility] Serum or plasma chloride herminio surement (moles/volume)Ordered By: Ron Mcmanus on 08-10-2022 Chloride [Moles/Vol] 102 mmol/L 95-114 [facility] Serum or plasma glucose chen urement (mass/volume)Ordered By: Ron Mcmanus on 08-10-2022 Glucose [Mass/Vol] 96 mg/dL 70-100 [facility] Comment on above: ADA recommended refe rence rangeRandom Glucose Reference Range is dependent on time and content of last meal. Glucose of more than 200 mg/dL in a nonstressed, ambulatory subject supports the diagnosis of Diabetes Mellitus. Serum or plasma potassium me asurement (moles/volume)Ordered By: Ron Mcmanus on 08-10-2022 Potassium [Moles/Vol] 3.5 mmol/L 3.5-5.1 [facility] Serum or plasma sodium measu rement (moles/volume)Ordered By: Ron Mcmanus on 08-10-2022 Sodium [Moles/Vol] 139 mmol/L 136-146 [facility] Serum or plasma total carbon dioxide measurement (moles/volume)Ordered By: Ron Mcmanus on 08-10-2022 CO2 [Moles/Vol] 25.1 mmol/L 22.0-30.0 [facility] Serum or plasma urea nitroge n measurement (mass/volume)Ordered By: Ron Mcmanus on 08-10-2022 Urea nitrogen [Mass/Vol] 11 mg/dL - [facility] COVID-19 Positive/NegativeOr dered By: Geoffrey Noel on 08-07-2022 SARS-CoV-2 (COVID-19) N gene JACK+probe Ql (Resp) Negative Negative [facility] Comment on above: Testing for SARS-CoV -2 by RT-PCRThis test was developed and its performance characteristics determined by [employer] and validated at the [facility]. This test has not been FDA cleared or approved. This test has been authorized by FDA under an Emergency Use Authorization (EUA). This test has been validated in accordance with the FDA's Guidance Document (Policy for Diagnostics Testing in Laboratories Certified to Perform High Complexity Testing under CLIA prior to Emergency Use Authorization for Coronavirus Disease-2019 during the Public Health Emergency) issued on January 15, 2020. This test is only authorized for the duration of time the declaration that circumstances exist justifying the authorization of the emergency use of in vitro diagnostic tests for detection of SARS-CoV-2 virus and/or diagnosis of COVID-19 infection under section 564(b)(1) of the Act, 21 U.S.C. 360bbb-3(b)(1), unless the authorization is terminated or revoked sooner. Creatinine (Bld) [Mass/Vol]O rdered By: Bertha Christianson on 08-01-2022 Creatinine [Mass/Vol] 1.0 mg/dL 0.6-1.3 [facility] Comment on above: ER/ESD physician is notified/shown all ISTAT results.Critical values may be confirmed by laboratory testing ifdeemed necessary by ER attending doctor. No Panel InformationOrdered By: Bertha Christianson on 08-01-2022 POC Estimated GFR > 60 [facility] Comment on above: GFR estimated refere nce range: According to KDOQI guidelines, <60 ml/min/1.73m2 is sufficient to diagnose a patient with chronic kidney disease. POC Estimated GFR Non- Amer 53 [facility] Albumin [Mass/volume] in Ser um or PlasmaOrdered By: Bertha Christianson on 06-06-2022 Albumin [Mass/Vol] 3.4 g/dL 3.2-5.5 [facility] Basophils Auto (Bld) [#/Vol] Ordered By: Bertha Christianson on 06-06-2022 Basophils (Bld) [#/Vol] 0.0 10*3/uL 0.0-0.2 [facility] Basophils/100 WBC Auto (Bld) Ordered By: Bertha Christianson on 06-06-2022 Basophils/100 WBC (Bld) 0.5 % . [facility] Blood hemoglobin measurement (mass/volume)Ordered By: Bertha Christianson on 06-06-2022 Hemoglobin (Bld) [Mass/Vol] 13.8 g/dL 11.8-15.4 [facility] Blood leukocytes automated c ount (number/volume)Ordered By: Bertha Christianson on 06-06-2022 WBC (Bld) [#/Vol] 7.8 10*3/uL 4.5-11.0 [facility] Creatinine and Glomerular fi ltration rate.predicted panel (S/P/Bld)Ordered By: Bertha Christianson on 06-06-2022 Creatinine [Mass/Vol] 0.90 mg/dL 0.44-1.03 [facility] Eosinophils Auto (Bld) [#/Vo l]Ordered By: Bertha Christianson on 06-06-2022 Eosinophils (Bld) [#/Vol] 0.0 10*3/uL 0.0-0.45 [facility] Eosinophils/100 WBC Auto (Bl d)Ordered By: Bertha Christianson on 06-06-2022 Eosinophils/100 WBC (Bld) 0.3 % . [facility] Erythrocyte distribution wid th Auto (RBC) [Ratio]Ordered By: Bertha Christianson on 06-06-2022 Erythrocyte distribution width (RBC) [Ratio] 14.4 % 11.9-15.3 [facility] Estimated glomerular filtrat ion rate (GFR) non- AmericanOrdered By: Bertha Christianson on 06-06-2022 GFR/1.73 sq M.predicted among non-blacks MDRD (S/P/Bld) [Vol rate/Area] 60 mL/Min [facility] Globulin Calc (S) [Mass/Vol] Ordered By: Bertha Christianson on 06-06-2022 Globulin (S) [Mass/Vol] 2.8 g/dL [facility] Hematocrit Auto (Bld) [Volum e fraction]Ordered By: Bertha Christianson on 06-06-2022 Hematocrit (Bld) [Volume fraction] 41.7 % 34.0-46.4 [facility] Laboratory - Hematology and Cell countsOrdered By: Bertha Christianson on 06-06-2022 Nucleated RBC/100 WBC (Bld) [Ratio] 0.0 % 0-0.5 [facility] Lymphocytes Auto (Bld) [#/Vo l]Ordered By: Bertha Christianson on 06-06-2022 Lymphocytes (Bld) [#/Vol] 0.6 10*3/uL 1.00-4.8 [facility] Lymphocytes/100 WBC Auto (Bl d)Ordered By: Bertha Christianson on 06-06-2022 Lymphocytes/100 WBC (Bld) 7.2 % . [facility] MCH Auto (RBC) [Entitic mass ]Ordered By: Bertha Christianson on 06-06-2022 MCH (RBC) [Entitic mass] 32.2 pg 24.7-34.3 [facility] MCHC Auto (RBC) [Mass/Vol]Or dered By: Bertha Christianson on 06-06-2022 MCHC (RBC) [Mass/Vol] 33.2 g/dL 32.0-35.0 [facility] MCV Auto (RBC) [Entitic vol] Ordered By: Bertha Christianson on 06-06-2022 MCV (RBC) [Entitic vol] 97.1 fL 80-100 [facility] Monocytes Auto (Bld) [#/Vol] Ordered By: Bertha Christianson on 06-06-2022 Monocytes (Bld) [#/Vol] 0.2 10*3/uL 0.0-0.8 [facility] Monocytes/100 WBC Auto (Bld) Ordered By: Bertha Christianson on 06-06-2022 Monocytes/100 WBC (Bld) 3.1 % . [facility] Neutrophils Auto (Bld) [#/Vo l]Ordered By: Bertha Christianson on 06-06-2022 Neutrophils (Bld) [#/Vol] 6.9 10*3/uL 1.8-7.7 [facility] Neutrophils/100 WBC Auto (Bl d)Ordered By: Bertha Christianson on 06-06-2022 Neutrophils/100 WBC (Bld) 88.9 % . [facility] No Panel InformationOrdered By: Bertha Christianson on 06-06-2022 Estimated GFR () > 60 mL/Min [facility] Comment on above: GFR estimated refere nce range: According to KDOQI guidelines, <60 ml/min/1.73m2 is sufficient to diagnose a patient with chronic kidney disease. Pharmacy Creatinine Clearance (Chem 53.68 [facility] Platelet mean volume Auto (B ld) [Entitic vol]Ordered By: Bertha Christianson on 06-06-2022 Platelet mean volume (Bld) [Entitic vol] 7.4 fL 6.3-10.7 [facility] Platelets Auto (Bld) [#/Vol] Ordered By: Bertha Christianson on 06-06-2022 Platelets (Bld) [#/Vol] 257 10*3/uL 150-450 [facility] Protein [Mass/volume] in Ser um or PlasmaOrdered By: Bertha Christianson on 06-06-2022 Protein [Mass/Vol] 6.2 g/dL 6.1-7.9 [facility] RBC Auto (Bld) [#/Vol]Ordere d By: Bertha Christianson on 06-06-2022 RBC (Bld) [#/Vol] 4.30 10*6/uL 3.60-5.00 [facility] Serum or plasma alanine waggoner otransferase measurement without P-5'-P (enzymatic activiOrdered By: Bertha Christianson on 06-06-2022 ALT No additional P-5'-P [Catalytic activity/Vol] 20 U/L 10-60 [facility] Serum or plasma albumin/glob ulin mass ratioOrdered By: Bertha Christianson on 06-06-2022 Albumin/Globulin [Mass ratio] 1.2 {ratio} [facility] Serum or plasma alkaline andrzej sphatase measurement (enzymatic activity/volume)Ordered By: Bertha Christianson on 06-06-2022 ALP [Catalytic activity/Vol] 61 U/L 32-92 [facility] Serum or plasma aspartate am inotransferase measurement (enzymatic activity/volume)Ordered By: Bertha Christianson on 06-06-2022 AST [Catalytic activity/Vol] 27 U/L 10-42 [facility] Serum or plasma calcium chen urement (mass/volume)Ordered By: Bertha Christianson on 06-06-2022 Calcium [Mass/Vol] 8.8 mg/dL 8.2-10.2 [facility] Serum or plasma carcinoembry onic antigen measurement (mass/volume)Ordered By: Bertha Christianson on 06-06-2022 Carcinoembryonic Ag [Mass/Vol] 3.4 ng/mL 0.0-3.0 [facility] Serum or plasma chloride herminio surement (moles/volume)Ordered By: Bertha Christianson on 06-06-2022 Chloride [Moles/Vol] 101 mmol/L 95-114 [facility] Serum or plasma glucose chen urement (mass/volume)Ordered By: Bertha Christianson on 06-06-2022 Glucose [Mass/Vol] 128 mg/dL 70-100 [facility] Comment on above: ADA recommended refe rence range Random Glucose Reference Range is dependent on time and content of last meal. Glucose of more than 200 mg/dL in a nonstressed, ambulatory subject supports the diagnosis of Diabetes Mellitus. ADA recommended refe rence rangeRandom Glucose Reference Range is dependent on time and content of last meal. Glucose of more than 200 mg/dL in a nonstressed, ambulatory subject supports the diagnosis of Diabetes Mellitus. Serum or plasma potassium me asurement (moles/volume)Ordered By: Bertha Christianson on 06-06-2022 Potassium [Moles/Vol] 4.1 mmol/L 3.5-5.1 [facility] Serum or plasma sodium measu rement (moles/volume)Ordered By: Bertha Christianson on 06-06-2022 Sodium [Moles/Vol] 140 mmol/L 136-146 [facility] Serum or plasma total biliru bin measurement (mass/volume)Ordered By: Bertha Christianson on 06-06-2022 Bilirubin [Mass/Vol] 0.6 mg/dL 0.3-1.2 [facility] Serum or plasma total carbon dioxide measurement (moles/volume)Ordered By: Bertha Christianson on 06-06-2022 CO2 [Moles/Vol] 29.6 mmol/L 22.0-30.0 [facility] Serum or plasma urea nitroge n measurement (mass/volume)Ordered By: Bertha Christianson on 06-06-2022 Urea nitrogen [Mass/Vol] 11 mg/dL 07-07 [facility] TSH DL <= 0.005 mIU/L QnOrde red By: Bertha Annashannan on 06-06-2022 TSH Qn 2.41 m[IU]/L 0.45-5.[address] [facility] CARDIAC STRESS/REST INJE CTIONon 06-05-2022 [facility] CARDIAC STRESS/REST INJECTION Patient Name: MELIDA VALERIO STUDY: MYOCARDIAL PERFUSION STRESS TEST WITH LEXISCAN Performing facility: [facility], [address] [place] [address], [address], [address] Provider: eWn Cadena MD, FACC PCP: Dr. Chantal Espino Supervising provider: Román Sierra MD, FACC INDICATION: SOBOE HISTORY: Gender: F; Age: 82 y/o ; Height: 0 cm; Weight: 0 kg. Family HX CAD; HTN; Arrhythmias; SOB; COPD; Lung CA Quit smoking 22 years ago. COMPARISON: Previous nuclear testing completed [id number] at [facility]. ACCESSION NUMBER(S): [id number]; [id number]; [id number] ORDERING CLINICIAN: RON CADENA TECHNIQUE: ONE DAY protocol. Stress injection: Date:06-05-22, 34.7 mCi of Myoview IV 20 seconds after rapid injection of Lexiscan. Rest injection: Date: 06-05-22, 11.1 mCi of Myoview IV at rest. The patient had a rapid injection of 0.4 mg of Lexiscan IV over 10 seconds. Imaging was performed by gated tomographic technique. Reason for Lexiscan: uses walker/cane STRESS TEST DATA: Resting heart rate was 57 BPM. Resting blood pressure was 142/82 mmHg. Peak blood pressure was 140/72 mmHg. Peak heart rate was 61 BPM. TEST TERMINATED DUE TO: Protocol completed FINDINGS: STRESS TEST RESULTS: Resting electrocardiogram revealed normal sinus rateq with prolonged QT interval. There were no significant ischemic ECG changes or dysrhythmias. The patient did not have chest pains/symptoms during procedure. There was a normal recovery phase. IMAGING RESULTS: Image quality was good. Rest and stress tomographic images were reviewed and revealed normal perfusion without evidence of ischemia, myocardial infarction, or left ventricular dilatation with stress. Overall left ventricular systolic function appeared to be normal without regional wall motion abnormalities. Ejection fraction was 81%. TID is 1.17 and is normal. There was evidence of breast attenuation artifact. IMPRESSION: Normal Lexiscan Myoview cardiac perfusion stress test. No evidence of ischemia or myocardial infarction by perfusion imaging. Normal left ventricular systolic function, ejection fraction 81%. When compared to a study from another institution from 2019 the fixed perfusion was reported previously. Electronically signed by: ROMÁN SIERRA MD Normal [facility] No Panel Informationon 06-05 Normal -[facility] [address] [place] Work Phone: T3, TOTAL (TRIIODOTHYRONINE) on 05-17-2022 T3, TOTAL 67 ng/dL Critically low 71-180 [facility] Comment on above: Performed By: #### T 3TOTAL #### [facility] [address] [place] [id number] Michelle Vargas FREE T4on 05-16-2022 Free T4 [Mass/Vol] 1.63 ng/dL Critically high 0.76-1.46 [facility] Comment on above: Performed By: #### F T4 #### [facility] [id number] Michelle Vargas Office Visit (Cardiology)on 05-16-2022 Follow-up visit Diagnoses/Problems Assessed Essential hypertension, benign (401.1) (I10) Paroxysmal atrial fibrillation (427.31) (I48.0) Hypothyroidism (244.9) (E03.9) High risk medication use (V58.69) (Z79.899) COPD (chronic obstructive pulmonary disease) (496) (J44.9) Class 1 obesity with body mass index (BMI) of 32.0 to 32.9 in adult (278.00,V85.32) (E66.9,Z68.32) Former smoker (V15.82) (Z87.891) quit 1999 SOB (shortness of breath) on exertion (786.05) (R06.02) Orders Class 1 obesity with body mass index (BMI) of 32.0 to 32.9 in adult Healthy Weight Tips; Status:Complete; Done: 16May2022 Health Maintenance Depression Follow-up Visit Outpatient Follow-up with pcp Status: Complete Done: 16May2022 PHQ2 Screen Positive; Status:Complete; Done: 16May2022 Paroxysmal atrial fibrillation IO EKG Electrocardiogram- 12 Lead; Status:Complete; Done: [id number] SOB (shortness of breath) on exertion NM Cardiac Stress/Rest Nuclear Med Order; Status:Active; Requested for:06Jun2022; Radiologist to Determine Optimal Study : Y What are the patient's signs and symptoms? : sob SocHx: Former smoker Tobacco Use Screening; Status:Complete; Done: 16May2022 Patient Instructions Please bring all medicines, vitamins, and herbal supplements with you when you come to the office. Prescriptions will not be filled unless you are compliant with your follow up appointments or have a follow up appointment scheduled as per instruction of your physician. Refills should be requested at the time of your visit. Patient provided Falls Prevention education sheet. ILaura LPN, am scribing for and in the presence of, Dr. Ron Cadena MD Amiodarone follow up as directed Follow up in 9 months Chief Complaint MELIDA VALERIO is being seen for a 6-9 month follow-up of. History of Present Illness Returns in follow-up of problems as noted. In the interim she is done relatively well. Amiodarone is working well and maintaining sinus rhythm and recent lab chest x-ray and pulmonary function studies are reviewed and felt to be satisfactory. Because of all the above we will continue as is. The enhanced risk of amiodarone with her concomitant COPD was emphasized but she wishes to stay on the medicine. Management of other risk factors including hypertension appears to be good. She developed some hypothyroidism and we have intervened as well. Overall we suggest continued therapy as is. The merits of diet and weight loss were emphasized. Amiodarone surveillance and testing for side effects associated with high risk medication will be continued. Surgical History Problems History of Appendectomy History of Cataract surgery History of Cholecystectomy History of Complete colonoscopy History of Hysterectomy History of Lumpectomy History of Tonsillectomy with adenoidectomy History of Venous access port placement Current Meds Medication NameInstruction Advair Diskus 250-50 MCG/DOSE AEPB Amiodarone HCl - 200 MG Oral TabletTAKE 1 TABLET DAILY. amLODIPine Besylate 5 MG Oral TabletTAKE 1 TABLET DAILY. hydroCHLOROthiazide 25 MG Oral TabletTAKE 1 TABLET DAILY. Levothyroxine Sodium 112 MCG Oral TabletTUES, , SUN, SUN Levothyroxine Sodium 125 MCG Oral Tabletmon, sun LORazepam 0.5 MG Oral TabletTake 1-2 tablets at bedtime for sleep Patient did not bring medication list or bottles. Updated verbally with patient. Allergies Medication erythromycin Allergy; Hives;; Recorded By: Kati Askew; 07/02/2021 3:19:51 PM Social History Problems Caffeine use (V49.89) (Z78.9) 2 cups coffee daily, occasional tea/soda Consumes alcohol (V49.89) (Z72.89) socially Former smoker (V15.82) (Z87.891) quit 1999 No illicit drug use Review of Systems Constitutional: not feeling tired. Eyes: no eyesight problems. ENT: no hearing loss and no nosebleeds. Cardiovascular: no intermittent leg claudication and as noted in HPI. Respiratory: no chronic cough and no shortness of breath. Gastrointestinal: no change in bowel habits and no blood in stools. Genitourinary: no urinary frequency. Skin: no skin rashes. Neurological: no seizures and no frequent falls. Psychiatric: no depression and not suicidal. All other systems have been reviewed and are negative for complaint. Vitals EKG COMPLETED IN OFFICE Physical Exam Constitutional: alert and in no acute distress. Eyes: no erythema, swelling or discharge from the eye . Neck: neck is supple, symmetric, trachea midline, no masses and no thyromegaly . Pulmonary: no increased work of breathing or signs of respiratory distress and lungs clear to auscultation. Cardiovascular: carotid pulses 2+ bilaterally with no bruit , JVP was normal, no thrills , regular rhythm, normal S1 and S2, no murmurs , pedal pulses 2+ bilaterally and no edema . Abdomen: abdomen non-tender, no masses and no hepatomegaly . Skin: skin warm and dry, normal skin turgor . Psychiatric judgm (more content not included)... Normal [facility] TSHon 05-16-2022 TSH 2.748 uIU/mL Normal 0.358-3.74 0 [facility] Comment on above: Performed By: #### T #### [facility] [address] [address] [address] Michelle Vargas Tobacco Screening.on 022 Adult depression screening assessment Yes [facility] [address] Work Phone: Fall risk assessment b) One or more fall s in the last year [facility] [address] Work Phone: [phone] Tobacco use status CPHS b) No [facility] [address] Work Phone: [phone] Tobacco Screening. 2-More than half the days [facility] [address] Work Phone: [phone] Tobacco Screening. 3-Nearly every day [facility] [address] DO Work Phone: [phone] Tobacco Screening. 1-Several days [facility] [address] Work Phone: [phone] Tobacco Screening. 0-Not at all [facility] [address] Work Phone: [phone] Tobacco Screening. Somewhat Difficult [facility] [address] Work Phone: Albumin [Mass/volume] in Ser um or PlasmaOrdered By: Bertha Christianson on 05-03-2022 Albumin [Mass/Vol] 2.9 g/dL 3.2-5.5 [facility] Basophils Auto (Bld) [#/Vol] Ordered By: Bertha Christianson on 05-03-2022 Basophils (Bld) [#/Vol] 0.1 10*3/uL 0.0-0.2 [facility] Basophils/100 WBC Auto (Bld) Ordered By: Bertha Christianson on 05-03-2022 Basophils/100 WBC (Bld) 0.5 % . [facility] Blood hemoglobin measurement (mass/volume)Ordered By: Bertha Christianson on 05-03-2022 Hemoglobin (Bld) [Mass/Vol] 13.1 g/dL 11.8-15.4 [facility] Blood leukocytes automated c ount (number/volume)Ordered By: Bertha Christianson on 05-03-2022 WBC (Bld) [#/Vol] 10.5 10*3/uL 4.5-11.0 [facility] Creatinine and Glomerular fi ltration rate.predicted panel (S/P/Bld)Ordered By: Bertha Christianson on 05-03-2022 Creatinine [Mass/Vol] 0.86 mg/dL 0.44-1.03 [facility] Eosinophils Auto (Bld) [#/Vo l]Ordered By: Bertha Christianson on 05-03-2022 Eosinophils (Bld) [#/Vol] 0.0 10*3/uL 0.0-0.45 [facility] Eosinophils/100 WBC Auto (Bl d)Ordered By: Bertha Christianson on 05-03-2022 Eosinophils/100 WBC (Bld) 0.5 % . [facility] Erythrocyte distribution wid th Auto (RBC) [Ratio]Ordered By: Bertha Christianson on 05-03-2022 Erythrocyte distribution width (RBC) [Ratio] 15.8 % 11.9-15.3 [facility] Estimated glomerular filtrat ion rate (GFR) non- AmericanOrdered By: Bertha Christianson on 05-03-2022 GFR/1.73 sq M.predicted among non-blacks MDRD (S/P/Bld) [Vol rate/Area] > 60 mL/Min [facility] Globulin Calc (S) [Mass/Vol] Ordered By: Bertha Christianson on 05-03-2022 Globulin (S) [Mass/Vol] 2.7 g/dL [facility] Hematocrit Auto (Bld) [Volum e fraction]Ordered By: Bertha Christianson on 05-03-2022 Hematocrit (Bld) [Volume fraction] 38.7 % 34.0-46.4 [facility] - Chemistry and C hemistry - challengeOrdered By: Bertha Christianson on 05-03-2022 Magnesium [Mass/Vol] 1.7 mg/dL 1.6-2.6 [facility] - Hematology and Cell countsOrdered By: Bertha Christianson on 05-03-2022 Nucleated RBC/100 WBC (Bld) [Ratio] 0.0 % 0-0.5 [facility] Lymphocytes Auto (Bld) [#/Vo l]Ordered By: Bertha Christianson on 05-03-2022 Lymphocytes (Bld) [#/Vol] 0.7 10*3/uL 1.00-4.8 [facility] Lymphocytes/100 WBC Auto (Bl d)Ordered By: Bertha Christianson on 05-03-2022 Lymphocytes/100 WBC (Bld) 6.3 % . [facility] MCH Auto (RBC) [Entitic mass ]Ordered By: Bertha Christianson on 05-03-2022 MCH (RBC) [Entitic mass] 32.4 pg 24.7-34.3 [facility] MCHC Auto (RBC) [Mass/Vol]Or dered By: Bertha Christianson on 05-03-2022 MCHC (RBC) [Mass/Vol] 33.7 g/dL 32.0-35.0 [facility] MCV Auto (RBC) [Entitic vol] Ordered By: Bertha Christianson on 05-03-2022 MCV (RBC) [Entitic vol] 96.0 fL 80-100 [facility] Monocyte %Ordered By: Rachana Christianson on 05-03-2022 Monocyte % 127 ug/dL 80-158 [facility] Comment on above: This test was develo ped and its performance characteristics determined by [employer]. It has not been cleared or approved by the Food and Drug Administration. Detection Limit = 5 Performed at: [facility] [employer] [id number] Employment Services Director: Chi Westfall MD, Phone: [phone] This test was develo ped and its performance characteristicsdetermined by [facility]. It has not been cleared orapproved by the Food and Drug Administration. Detection Limit = 5Performed at: [facility] [employer] [id number] Director: Chi Westfall MD, Phone: [phone] Monocytes Auto (Bld) [#/Vol] Ordered By: Bertha Christianson on 05-03-2022 Monocytes (Bld) [#/Vol] 0.6 10*3/uL 0.0-0.8 [facility] Monocytes/100 WBC Auto (Bld) Ordered By: Bertha Christianson on 05-03-2022 Monocytes/100 WBC (Bld) 5.5 % . [facility] Neutrophils Auto (Bld) [#/Vo l]Ordered By: Bertha Christianson on 05-03-2022 Neutrophils (Bld) [#/Vol] 9.1 10*3/uL 1.8-7.7 [facility] Neutrophils/100 WBC Auto (Bl d)Ordered By: Bertha Christianson on 05-03-2022 Neutrophils/100 WBC (Bld) 87.2 % . [facility] No Panel InformationOrdered By: Bertha Christianson on 05-03-2022 Adrenocorticotropic Hormone 4.9 pg/mL Low 7.2-63.3 [facility] Comment on above: ACTH reference inter wander for samples collected between 7 and 10 AM. Performed at: [employer] [id number] Employment Services Director: Teja Washburn PhD, Phone: [phone] ACTH reference inter wander for samples collected between 7 and10 AM.Performed at: [facility] [employer] [id number] Director: Teja Washburn PhD, Phone: [phone] Estimated GFR () > 60 mL/Min [facility] Comment on above: GFR estimated refere nce range: According to KDOQI guidelines, <60 ml/min/1.73m2 is sufficient to diagnose a patient with chronic kidney disease. Pharmacy Creatinine Clearance (Chem 56.03 [facility] Platelet mean volume Auto (B ld) [Entitic vol]Ordered By: Bertha Christianson on 05-03-2022 Platelet mean volume (Bld) [Entitic vol] 7.0 fL 6.3-10.7 [facility] Platelets Auto (Bld) [#/Vol] Ordered By: Bertha Christianson on 05-03-2022 Platelets (Bld) [#/Vol] 261 10*3/uL 150-450 [facility] Protein [Mass/volume] in Ser um or PlasmaOrdered By: Bertha Christianson on 05-03-2022 Protein [Mass/Vol] 5.6 g/dL 6.1-7.9 [facility] RBC Auto (Bld) [#/Vol]Ordere d By: Bertha Christianson on 05-03-2022 RBC (Bld) [#/Vol] 4.04 10*6/uL 3.60-5.00 [facility] Serum or plasma alanine waggoner otransferase measurement without P-5'-P (enzymatic activiOrdered By: Bertha Christianson on 05-03-2022 ALT No additional P-5'-P [Catalytic activity/Vol] 23 U/L 10-60 [facility] Serum or plasma albumin/glob ulin mass ratioOrdered By: Bertha Christianson on 05-03-2022 Albumin/Globulin [Mass ratio] 1.1 {ratio} [facility] Serum or plasma alkaline andrzej sphatase measurement (enzymatic activity/volume)Ordered By: Bertha Christianson on 05-03-2022 ALP [Catalytic activity/Vol] 55 U/L 32-92 [facility] Serum or plasma aspartate am inotransferase measurement (enzymatic activity/volume)Ordered By: Bertha Christianson on 05-03-2022 AST [Catalytic activity/Vol] 27 U/L 10-42 [facility] Serum or plasma calcium chen urement (mass/volume)Ordered By: Bertha Christianson on 05-03-2022 Calcium [Mass/Vol] 8.6 mg/dL 8.2-10.2 [facility] Serum or plasma carcinoembry onic antigen measurement (mass/volume)Ordered By: Bertha Christianson on 05-03-2022 Carcinoembryonic Ag [Mass/Vol] 2.9 ng/mL 0.0-3.0 [facility] Serum or plasma chloride herminio surement (moles/volume)Ordered By: Bertha Christianson on 05-03-2022 Chloride [Moles/Vol] 102 mmol/L 95-114 [facility] Serum or plasma glucose chen urement (mass/volume)Ordered By: Bertha Christianson on 05-03-2022 Glucose [Mass/Vol] 117 mg/dL 70-100 [facility] Comment on above: ADA recommended refe rence range Random Glucose Reference Range is dependent on time and content of last meal. Glucose of more than 200 mg/dL in a nonstressed, ambulatory subject supports the diagnosis of Diabetes Mellitus. Serum or plasma potassium me asurement (moles/volume)Ordered By: Bertha Christianson on 05-03-2022 Potassium [Moles/Vol] 3.2 mmol/L 3.5-5.1 [facility] Serum or plasma sodium measu rement (moles/volume)Ordered By: Bertha Christianson on 05-03-2022 Sodium [Moles/Vol] 139 mmol/L 136-146 [facility] Serum or plasma total biliru bin measurement (mass/volume)Ordered By: Bertha Christianson on 05-03-2022 Bilirubin [Mass/Vol] 0.7 mg/dL 0.3-1.2 [facility] Serum or plasma total carbon dioxide measurement (moles/volume)Ordered By: Bertha Christianson on 05-03-2022 CO2 [Moles/Vol] 29.4 mmol/L 22.0-30.0 [facility] Serum or plasma urea nitroge n measurement (mass/volume)Ordered By: Bertha Christianson on 05-03-2022 Urea nitrogen [Mass/Vol] 14 mg/dL 9- [facility] TSH DL <= 0.005 mIU/L QnOrde red By: Bertha Christianson on 05-03-2022 TSH Qn 6.13 m[IU]/L 0.45-5.33 [facility] Thyroxine (T4) free [Mass/vo lume] in Serum or PlasmaOrdered By: Bertah Christianson on 05-03-2022 Free T4 [Mass/Vol] 1.75 ng/dL High 0.61-1.12 [facility] - Chemistry and C hemistry - challengeon 04-20-2022 CO2 [Moles/Vol] 30 mmol/L Normal 21-31 [facility] [address] DO Work Phone: No Panel Informationon 04-20 32 {Int._Unit/L} Normal 5-43 [facility] [address] Work Phone: [phone] 4.97 {mcIU/mL} Normal 0.34-5.60 [facility] [facility] [address] DO Work Phone: >60 Normal >=59 [facility] [facility] [address] DO Work Phone: Comment on above: eGFR is race adjuste d. AA=. 60 {mL/min/1.73_m2} Normal >=59 [facility] [facility] [address] DO Work Phone: Comment on above: Chronic kidney disea se could be indicated at eGFR's of less than 60 mL/min/1.73m2. Kidney failure is indicated at less than 15 mL/min/1.73m2. 13 {mEq/L} Normal 6-16 [facility] [address] DO Work Phone: 100 mmol/L below low threshold 101-111 [facility] [facility] [address] Work Phone: 3.7 mmol/L Normal 3.5-5.3 [facility] [address] DO Work Phone: [phone] 139 mmol/L Normal 135-145 [facility] [address] DO Work Phone: [phone] 8.9 mg/dL Normal 8.9-11.1 [facility] [address] DO Work Phone: 14 {No_Units} Normal 10-20 [facility] [facility] [address] DO Work Phone: [phone] 0.9 mg/dL Normal 0.5-1.3 [facility] [address] DO Work Phone: 13 mg/dL Normal 5-21 [facility] [address] DO Work Phone: 146 mg/dL Normal 55-199 [facility] y 250 DO Work Phone: Comment on above: If this glucose resu lt represents a fasting glucose, interpretation should refer to the following reference range: 55-99 mg/dL Radiologyon 04-20-2022 XR Chest 2 [facility] Work [facility] 02 MODE ROOM AIR Normal [facility] Comment on above: Performed By: #### A BG #### [facility] [address] [place] [address] Dr. Michelle Vargas ALLENMonserrat TEST Positive [facility] Comment on above: Performed By: #### A BG #### [facility] [address] [place] [address] Dr. Michelle Vargas Base excess Calc (Bld) [Moles/Vol] 6.1 mmol/L Critically high -2.0-2.0 [facility] Comment on above: Performed By: #### A BG #### [facility] [address] [place] [address] Dr. Michelle Vargas BIPAP PRESSURE Normal [facility] Comment on above: Performed By: #### A BG #### [facility] [address] [address] [address] Michelle Vargas CO2 [Moles/Vol] 58.8 mmol/L Critically high 23.0-28.0 [facility] Comment on above: Performed By: #### A BG #### [facility] [address] [address] [address] Michelle Vargas CPAP Normal [facility] Comment on above: Performed By: #### A BG #### [facility] [address] [place] [address] Dr. Michelle Vargas FIO2 [facility] Comment on above: Performed By: #### A BG #### [facility] [address] [place], [place] [id number] Dr. Michelle Vargas HCO3 (Bld) [Moles/Vol] 29.2 mmol/L Critically high 22.0-26 .0 [facility] Comment on above: Performed By: #### A BG #### [facility] [address] [place] [address] Dr. Michelle Vargas LPM [facility] Comment on above: Performed By: #### A BG #### [facility] [address] [place] [address] Dr. Michelle Vargas MINUTE VOLUME Normal [facility] Comment on above: Performed By: #### A BG #### [facility] [address] [place] [address] Dr. Michelle Vargas Oxygen (Bld) [Partial pressure] 71.8 mm[Hg] Critically low 80.0-100.0 [facility] Comment on above: Performed By: #### A BG #### [facility] [address] [place] [address] Dr. Michelle Vargas Oxygen saturation in Blood 96.1 % Normal 95.0-100.0 [facility] Comment on above: Performed By: #### A BG #### [facility] [address] [place] [address] Dr. Michelle Vargas PCO2 42.5 mmHg Normal 35.0-45.0 [facility] Comment on above: Performed By: #### A BG #### [facility] [address] [place] [address] Dr. Michelle Vargas PEEP [facility] Comment on above: Performed By: #### A BG #### [facility] [address] [place] [address] Dr. Michelle Vargas pH (Bld) 7.457 [pH] Critically high 7.350-7.45 0 [facility] Comment on above: Performed By: #### A BG #### [facility] [address] [place] [address] Dr. Michelle Vargas PIP [facility] Comment on above: Performed By: #### A BG #### [facility] [address] [place] [address] Dr. Michelle Vargas PS [facility] Comment on above: Performed By: #### A BG #### [facility] [address] [place] [address] Dr. Michelle Vargas PUNCTURE SITE LR [facility] Comment on above: Performed By: #### A BG #### [facility] [address] [place] [address] Dr. Michelle Vargas RATE [facility] Comment on above: Performed By: #### A BG #### [facility] [address] [place] [address] Dr. Michelle Vargas VENT MODE [facility] Comment on above: Performed By: #### A BG #### [facility] [address] [place] [address] Dr. Michelle Vargas [place] [facility] Comment on above: Performed By: #### A BG #### [facility] [address] [place] [address] Dr. Michelle Vargas PULMONARY FUNCTION TESTon PULMONARY FUNCTION TEST The [place], [place] NAME: MELIDA VALERIO DATE OF : MEDICAL REC#: [id number] INSPECTOR OUTSIDE PRODUCTION: CHASITY THOMAS ADMIT DATE: 04/18/2022 13:00:00 MARKET MAKER DATE: 04/26/2022 21:39 DICTATING PHYSICIAN: HIRAL MCCARTY DICTATION DATE: 04/25/2022 10:04 PULMONARY FUNCTION TEST STUDY DATE: 04/18/2022 SIX MINUTE WALK STUDY INDICATION: Chronic respiratory failure with hypoxia. Six minute walk study was initiated according to standard protocol. Prior to walk, patient had arterial blood gas with a pO2 of 71.8, with saturation 96.1% on room air. Resting blood pressure was 148/74, heart rate 71, Jonas score 2. Patient ambulated for one minute with saturation dropping to 82% on room air. This walk study was aborted and a new six minute walk study was initiated on 2 liters of O2 per minute. On 2L/min O2, SpO2 was 99% at rest with heart rate 74 and blood pressure 132/72, with a Jonas of 1. Patient was able to ambulate for six minutes, with one stop, for a total distance walked of 121.9 meters. Oxygen kendra on 2 liters per minute was 97%, with a maximum heart rate of 86%. Maximum Jonas was 3. During recovery, she was 100% on 2 liters, heart rate of 74, a blood pressure 124/72 and a Jonas Score of 1. There was one stop due to legs feeling like Jell-O . IMPRESSIONS: Ambulatory desaturations requiring 2 liters per minute of oxygen to achieve saturations greater than 89%. Reduced walk distance at 56% predicted. RECOMMENDATIONS: 2 liters per minute O2 with activity/ambulation. Clinical correlation required. Electronically Authenticated and Edited by: Hiral Mccarty DO on 04/27/2022 12:34 PM EDT IFC Signed and Approved by: HIRAL MCCARTY . 04/27/2022 12:34:00 Normal [facility] Basophils Auto (Bld) [#/Vol] Ordered By: Bertha Christianson on 04-06-2022 Basophils (Bld) [#/Vol] 0.0 10*3/uL 0.0-0.2 [facility] Basophils/100 WBC Auto (Bld) Ordered By: Bertha Christianson on 04-06-2022 Basophils/100 WBC (Bld) 0.5 % [facility] Blood hemoglobin measurement (mass/volume)Ordered By: Bertha Christianson on 04-06-2022 Hemoglobin (Bld) [Mass/Vol] 13.5 g/dL 11.8-15.4 [facility] Blood leukocytes automated c ount (number/volume)Ordered By: Bertha Christianson on 04-06-2022 WBC (Bld) [#/Vol] 7.5 10*3/uL 4.5-11.0 [facility] Body fluid albumin measureme nt (mass/volume)Ordered By: Bertha Christianson on 04-06-2022 Albumin (Body fld) [Mass/Vol] 3.0 g/dL 3.2-5.5 [facility] Creatinine and Glomerular fi ltration rate.predicted panel (S/P/Bld)Ordered By: Bertha Christianson on 04-06-2022 Creatinine [Mass/Vol] 0.90 mg/dL 0.44-1.03 [facility] Eosinophils Auto (Bld) [#/Vo l]Ordered By: Bertha Christianson on 04-06-2022 Eosinophils (Bld) [#/Vol] 0.0 10*3/uL 0.0-0.45 [facility] Eosinophils/100 WBC Auto (Bl d)Ordered By: Bertha Christianson on 04-06-2022 Eosinophils/100 WBC (Bld) 0.0 % [facility] Erythrocyte distribution wid th Auto (RBC) [Ratio]Ordered By: Bertha Christianson on 04-06-2022 Erythrocyte distribution width (RBC) [Ratio] 16.0 % 11.9-15.3 [facility] Estimated glomerular filtrat ion rate (GFR) non- AmericanOrdered By: Bertha Christianson on 04-06-2022 GFR/1.73 sq M.predicted among non-blacks MDRD (S/P/Bld) [Vol rate/Area] 60 mL/Min [facility] Globulin Calc (S) [Mass/Vol] Ordered By: Bertha Christianson on 04-06-2022 Globulin (S) [Mass/Vol] 2.7 g/dL [facility] Hematocrit Auto (Bld) [Volum e fraction]Ordered By: Bertha Christianson on 04-06-2022 Hematocrit (Bld) [Volume fraction] 40.2 % 34.0-46.4 [facility] - Hematology and Cell countsOrdered By: Bertha Christianson on 04-06-2022 Nucleated RBC/100 WBC (Bld) [Ratio] 0.1 % 0-0.5 [facility] Lymphocytes Auto (Bld) [#/Vo l]Ordered By: Bertha Christianson on 04-06-2022 Lymphocytes (Bld) [#/Vol] 0.3 10*3/uL 1.00-4.8 [facility] Lymphocytes/100 WBC Auto (Bl d)Ordered By: Bertha Christianson on 04-06-2022 Lymphocytes/100 WBC (Bld) 3.8 % [facility] MCH Auto (RBC) [Entitic mass ]Ordered By: Bertha Christianson on 04-06-2022 MCH (RBC) [Entitic mass] 31.7 pg 24.7-34.3 [facility] MCHC Auto (RBC) [Mass/Vol]Or dered By: Bertha Christianson on 04-06-2022 MCHC (RBC) [Mass/Vol] 33.5 g/dL 32.0-35.0 [facility] MCV Auto (RBC) [Entitic vol] Ordered By: Bertha Christianson on 04-06-2022 MCV (RBC) [Entitic vol] 94.6 fL 80-100 [facility] Monocytes Auto (Bld) [#/Vol] Ordered By: Bertha Christianson on 04-06-2022 Monocytes (Bld) [#/Vol] 0.1 10*3/uL 0.0-0.8 [facility] Monocytes/100 WBC Auto (Bld) Ordered By: Bertha Christianson on 04-06-2022 Monocytes/100 WBC (Bld) 1.4 % [facility] Neutrophils Auto (Bld) [#/Vo l]Ordered By: Bertha Christianson on 04-06-2022 Neutrophils (Bld) [#/Vol] 7.1 10*3/uL 1.8-7.7 [facility] Neutrophils/100 WBC Auto (Bl d)Ordered By: Bertha Christianson on 04-06-2022 Neutrophils/100 WBC (Bld) 94.3 % [facility] No Panel InformationOrdered By: Bertha Christianson on 04-06-2022 Estimated GFR () > 60 mL/Min [facility] Comment on above: GFR estimated refere nce range: According to KDOQI guidelines, <60 ml/min/1.73m2 is sufficient to diagnose a patient with chronic kidney disease. Pharmacy Creatinine Clearance (Chem 54.01 [facility] Platelet mean volume Auto (B ld) [Entitic vol]Ordered By: Bertha Christianson on 04-06-2022 Platelet mean volume (Bld) [Entitic vol] 7.0 fL 6.3-10.7 [facility] Platelets Auto (Bld) [#/Vol] Ordered By: Bertha Christianson on 04-06-2022 Platelets (Bld) [#/Vol] 240 10*3/uL 150-450 [facility] Protein [Mass/volume] in Ser um or PlasmaOrdered By: Bertha Christianson on 04-06-2022 Protein [Mass/Vol] 5.7 g/dL 6.1-7.9 [facility] RBC Auto (Bld) [#/Vol]Ordere d By: Bertha Christianson on 04-06-2022 RBC (Bld) [#/Vol] 4.25 10*6/uL 3.60-5.00 [facility] Serum or plasma alanine waggoner otransferase measurement without P-5'-P (enzymatic activiOrdered By: Bertha Christianson on 04-06-2022 ALT No additional P-5'-P [Catalytic activity/Vol] 35 U/L 10-60 [facility] Serum or plasma albumin/glob ulin mass ratioOrdered By: Bertha Christianson on 04-06-2022 Albumin/Globulin [Mass ratio] 1.1 {ratio} [facility] Serum or plasma alkaline andrzej sphatase measurement (enzymatic activity/volume)Ordered By: Bertha Christianson on 04-06-2022 ALP [Catalytic activity/Vol] 62 U/L 32-92 [facility] Serum or plasma aspartate am inotransferase measurement (enzymatic activity/volume)Ordered By: Bertha Christianson on 04-06-2022 AST [Catalytic activity/Vol] 40 U/L 10-42 [facility] Serum or plasma calcium chen urement (mass/volume)Ordered By: Bertha Christianson on 04-06-2022 Calcium [Mass/Vol] 8.6 mg/dL 8.2-10.2 [facility] Serum or plasma carcinoembry onic antigen measurement (mass/volume)Ordered By: Bertha Christianson on 04-06-2022 Carcinoembryonic Ag [Mass/Vol] 3.8 ng/mL 0.0-3.0 [facility] Serum or plasma chloride herminio surement (moles/volume)Ordered By: Bertha Christianson on 04-06-2022 Chloride [Moles/Vol] 99 mmol/L 95-114 [facility] Serum or plasma glucose chen urement (mass/volume)Ordered By: Bertha Christianson on 04-06-2022 Glucose [Mass/Vol] 211 mg/dL 70-100 [facility] Comment on above: ADA recommended refe rence range Random Glucose Reference Range is dependent on time and content of last meal. Glucose of more than 200 mg/dL in a nonstressed, ambulatory subject supports the diagnosis of Diabetes Mellitus. Serum or plasma potassium me asurement (moles/volume)Ordered By: Bertha Christianson on 04-06-2022 Potassium [Moles/Vol] 3.4 mmol/L 3.5-5.1 [facility] Serum or plasma sodium measu rement (moles/volume)Ordered By: Bertha Christianson on 04-06-2022 Sodium [Moles/Vol] 138 mmol/L 136-146 [facility] Serum or plasma total biliru bin measurement (mass/volume)Ordered By: Bertha Christianson on 04-06-2022 Bilirubin [Mass/Vol] 0.6 mg/dL 0.3-1.2 [facility] Serum or plasma total carbon dioxide measurement (moles/volume)Ordered By: Bertha Christianson on 04-06-2022 CO2 [Moles/Vol] 25.9 mmol/L 22.0-30.0 [facility] Serum or plasma urea nitroge n measurement (mass/volume)Ordered By: Bertha Christianson on 04-06-2022 Urea nitrogen [Mass/Vol] 9 mg/dL 07-07 [facility] Creatinine (Bld) [Mass/Vol]O rdered By: Bertha Christianson on 02-22-2022 Creatinine [Mass/Vol] 0.9 mg/dL 0.6-1.3 [facility] Comment on above: ER/ESD physician is notified/shown all ISTAT results. Critical values may be confirmed by laboratory testing if deemed necessary by ER attending doctor. ER/ESD physician is notified/shown all ISTAT results.Critical values may be confirmed by laboratory testing ifdeemed necessary by ER attending doctor. No Panel InformationOrdered By: Bertha Christianson on 02-22-2022 POC Estimated GFR > 60 [facility] Comment on above: GFR estimated refere nce range: According to KDOQI guidelines, <60 ml/min/1.73m2 is sufficient to diagnose a patient with chronic kidney disease. POC Estimated GFR Non- Amer 60 [facility] Basophils Auto (Bld) [#/Vol] Ordered By: Bety Mulligan on 01-28-2022 Basophils (Bld) [#/Vol] 0.0 10*3/uL 0.0-0.2 [facility] Basophils/100 WBC Auto (Bld) Ordered By: Bety Mulligan on 01-28-2022 Basophils/100 WBC (Bld) 0.3 % [facility] Blood hemoglobin measurement (mass/volume)Ordered By: Bety Mulligan on 01-28-2022 Hemoglobin (Bld) [Mass/Vol] 12.5 g/dL 11.8-15.4 [facility] Blood leukocytes automated c ount (number/volume)Ordered By: Bety Mulligan on 01-28-2022 WBC (Bld) [#/Vol] 6.5 10*3/uL 4.5-11.0 [facility] Creatinine and Glomerular fi ltration rate.predicted panel (S/P/Bld)Ordered By: Bety Mulligan on 01-28-2022 Creatinine [Mass/Vol] 0.67 mg/dL 0.44-1.03 [facility] Eosinophils Auto (Bld) [#/Vo l]Ordered By: Bety Mulligan on 01-28-2022 Eosinophils (Bld) [#/Vol] 0.0 10*3/uL 0.0-0.45 [facility] Eosinophils/100 WBC Auto (Bl d)Ordered By: Bety Mulligan on 01-28-2022 Eosinophils/100 WBC (Bld) 0.2 % [facility] Erythrocyte distribution wid th Auto (RBC) [Ratio]Ordered By: Bety Mulligan on 01-28-2022 Erythrocyte distribution width (RBC) [Ratio] 13.5 % 11.9-15.3 [facility] Estimated glomerular filtrat ion rate (GFR) non- AmericanOrdered By: Bety Mulligan on 01-28-2022 GFR/1.73 sq M.predicted among non-blacks MDRD (S/P/Bld) [Vol rate/Area] > 60 mL/Min [facility] Hematocrit Auto (Bld) [Volum e fraction]Ordered By: Bety Mulligan on 01-28-2022 Hematocrit (Bld) [Volume fraction] 37.5 % 34.0-46.4 [facility] - Chemistry and C hemistry - challengeOrdered By: Tonya Balderrama on 01-28-2022 Magnesium [Mass/Vol] 1.7 mg/dL 1.6-2.6 [facility] - Hematology and Cell countsOrdered By: Bety Mulligan on 01-28-2022 Nucleated RBC/100 WBC (Bld) [Ratio] 0.0 % 0-0.5 [facility] Lymphocytes Auto (Bld) [#/Vo l]Ordered By: Bety Mulligan on 01-28-2022 Lymphocytes (Bld) [#/Vol] 0.5 10*3/uL 1.00-4.8 [facility] Lymphocytes/100 WBC Auto (Bl d)Ordered By: Bety Mulligan on 01-28-2022 Lymphocytes/100 WBC (Bld) 8.3 % [facility] MCH Auto (RBC) [Entitic mass ]Ordered By: Bety Mulligan on 01-28-2022 MCH (RBC) [Entitic mass] 31.4 pg 24.7-34.3 [facility] MCHC Auto (RBC) [Mass/Vol]Or dered By: Bety Mulligan on 01-28-2022 MCHC (RBC) [Mass/Vol] 33.4 g/dL 32.0-35.0 [facility] MCV Auto (RBC) [Entitic vol] Ordered By: Bety Mulligan on 01-28-2022 MCV (RBC) [Entitic vol] 94.3 fL 80-100 [facility] Monocytes Auto (Bld) [#/Vol] Ordered By: Bety Mulligan on 01-28-2022 Monocytes (Bld) [#/Vol] 0.6 10*3/uL 0.0-0.8 [facility] Monocytes/100 WBC Auto (Bld) Ordered By: Bety Mulligan on 01-28-2022 Monocytes/100 WBC (Bld) 9.6 % [facility] Neutrophils Auto (Bld) [#/Vo l]Ordered By: Bety Mulligan on 01-28-2022 Neutrophils (Bld) [#/Vol] 5.3 10*3/uL 1.8-7.7 [facility] Neutrophils/100 WBC Auto (Bl d)Ordered By: Bety Mulligan on 01-28-2022 Neutrophils/100 WBC (Bld) 81.6 % [facility] No Panel InformationOrdered By: Bety Mulligan on 01-28-2022 Estimated GFR () > 60 mL/Min [facility] Comment on above: GFR estimated refere nce range: According to KDOQI guidelines, <60 ml/min/1.73m2 is sufficient to diagnose a patient with chronic kidney disease. Pharmacy Creatinine Clearance (Chem 61.38 [facility] Platelet mean volume Auto (B ld) [Entitic vol]Ordered By: Bety Mulligan on 01-28-2022 Platelet mean volume (Bld) [Entitic vol] 6.7 fL 6.3-10.7 [facility] Platelets Auto (Bld) [#/Vol] Ordered By: Bety Mulligan on 01-28-2022 Platelets (Bld) [#/Vol] 175 10*3/uL 150-450 [facility] RBC Auto (Bld) [#/Vol]Ordere d By: Bety Mulligan on 01-28-2022 RBC (Bld) [#/Vol] 3.98 10*6/uL 3.60-5.00 [facility] Serum or plasma calcium chen urement (mass/volume)Ordered By: Bety Mulligan on 01-28-2022 Calcium [Mass/Vol] 8.2 mg/dL 8.2-10.2 [facility] Serum or plasma chloride herminio surement (moles/volume)Ordered By: Bety Mulligan on 01-28-2022 Chloride [Moles/Vol] 99 mmol/L 95-114 [facility] Serum or plasma glucose chen urement (mass/volume)Ordered By: Bety Mulligan on 01-28-2022 Glucose [Mass/Vol] 91 mg/dL 70-100 [facility] Comment on above: ADA recommended refe rence rangeRandom Glucose Reference Range is dependent on time and content of last meal. Glucose of more than 200 mg/dL in a nonstressed, ambulatory subject supports the diagnosis of Diabetes Mellitus. ADA recommended refe rence range Random Glucose Reference Range is dependent on time and content of last meal. Glucose of more than 200 mg/dL in a nonstressed, ambulatory subject supports the diagnosis of Diabetes Mellitus. Serum or plasma potassium me asurement (moles/volume)Ordered By: Bety Mulligan on 01-28-2022 Potassium [Moles/Vol] 3.0 mmol/L 3.5-5.1 [facility] Serum or plasma sodium measu rement (moles/volume)Ordered By: Bety Mulligan on 01-28-2022 Sodium [Moles/Vol] 137 mmol/L 136-146 [facility] Serum or plasma total carbon dioxide measurement (moles/volume)Ordered By: Bety Mulligan on 01-28-2022 CO2 [Moles/Vol] 31.8 mmol/L 22.0-30.0 [facility] Serum or plasma urea nitroge n measurement (mass/volume)Ordered By: Bety Mulligan on 01-28-2022 Urea nitrogen [Mass/Vol] 14 mg/dL 9-23 [facility] No Panel InformationOrdered By: Elena Crump on 01-23-2022 Acetylcholine Receptor Binding Ab <0.03 nmol/L [facility] Comment on above: Negative: 0.00 - 0.2 4 Borderline: 0.25 - 0.40 Positive: >0.40Performed at: [facility] [id number] Director: Chi Westfall MD, Phone: [phone] Negative: 0.00 - 0.2 4 Borderline: 0.25 - 0.40 Positive: >0.40 Performed at: [facility] [address] [place], [place] [id number] Employment Services Director: Chi Westfall MD, Phone: [phone] Anti-MuSK Antibody Results <1.0 U/mL [facility] Comment on above: Reference Range: Negative: <1.0 Positive: 1.0 or higher A positive result, in the context of congruent clinical findings, confirms the diagnosis of autoimmune MuSK myasthenia gravis. COMMENTS: - Myasthenia gravis (MG) is caused by auto-antibodies against proteins of the neuromuscular junction. Most cases (about 90%) of generalized MG are anti- acetylcholine receptor (AChR) antibody-positive.(1) - Of generalized MG patients who lack anti-AChR antibodies (AChR-seronegative), about 40% are positive for Muscle- Specific Kinase (MuSK) antibody.(1,2) - Though a positive MuSK result is specific for the diagnosis of MuSK MG, a negative MuSK result does not rule out a MG diagnosis. - MuSK antibody levels have been shown to correlate with disease severity.(3) Serial measurements may be useful to follow treatment. References: 1. Aydee-Julio S et al. J Autoimmunity 2014;52:90-100. 2. Jitendra GERONIMO et al. PNAS 2013;110(51);94274-63440. 3. Igorioni E et al. Neurology 2006;67:505-507. This test was developed and its performance characteristics determined by [employer]. It has not been cleared or approved by the Food and Drug Administration. Performed at: [facility] [facility] [address] [place] [id number] Employment Services Director: Aquiles Larios MD, Phone: [phone] Encephalopathy Autoimmune Interp See comment [facility] Comment on above: See report. Scanned copy available in EMR. Serum acetylcholine receptor blocking antibody/total acetylcholine antibody ratioOrdered By: Elena Crump on 01-23-2022 Acetylcholine receptor blocking Ab/Acetylcholine Ab.total (S) [Molar fraction] 21 % [facility] Comment on above: Results of this test are labeled for research purposes onlyby the assay's manager strategic. The performancecharacteristics of this assay have not been established bythe manager strategic. The result should not be used fortreatment or for diagnostic purposes without confirmationof the diagnosis by another medically establisheddiagnostic product or procedure. The performancecharacteristics were determined by [facility]. Negative: 0 - 25 Borderline: 26 - 30 Positive: >30Performed at: [facility] [address] [id number] Director: Chi Westfall MD, Phone: [phone] Results of this test are labeled for research purposes only by the assay's manager strategic. The performance characteristics of this assay have not been established by the manager strategic. The result should not be used for treatment or for diagnostic purposes without confirmation of the diagnosis by another medically established diagnostic product or procedure. The performance characteristics were determined by [employer]. Negative: 0 - 25 Borderline: 26 - 30 Positive: >30 Performed at: [facility] [id number] Employment Services Director: Chi Westfall MD, Phone: [phone] Albumin [Mass/volume] in Ser um or PlasmaOrdered By: Dorian Thomason on 01-21-2022 Albumin [Mass/Vol] 2.9 g/dL 3.2-5.5 [facility] Globulin Calc (S) [Mass/Vol] Ordered By: Dorian Thomason on 01-21-2022 Globulin (S) [Mass/Vol] 2.6 g/dL [facility] Protein [Mass/volume] in Ser um or PlasmaOrdered By: Dorian Thomason on 01-21-2022 Protein [Mass/Vol] 5.5 g/dL 6.1-7.9 [facility] Serum or plasma alanine waggoner otransferase measurement without P-5'-P (enzymatic activiOrdered By: Dorian Thomason on 01-21-2022 ALT No additional P-5'-P [Catalytic activity/Vol] 78 U/L 10-60 [facility] Serum or plasma albumin/glob ulin mass ratioOrdered By: Dorian Thomason on 01-21-2022 Albumin/Globulin [Mass ratio] 1.1 {ratio} [facility] Serum or plasma alkaline andrzej sphatase measurement (enzymatic activity/volume)Ordered By: Dorian Thomason on 01-21-2022 ALP [Catalytic activity/Vol] 58 U/L 32-92 [facility] Serum or plasma aspartate am inotransferase measurement (enzymatic activity/volume)Ordered By: Dorian Thomason on 01-21-2022 AST [Catalytic activity/Vol] 43 U/L 10-42 [facility] Serum or plasma prealbumin m easurement (mass/volume)Ordered By: Dorian Thomason on 01-21-2022 Prealbumin [Mass/Vol] 25.1 mg/dL 18.0-38.0 [facility] Serum or plasma total biliru bin measurement (mass/volume)Ordered By: Dorian Thomason on 01-21-2022 Bilirubin [Mass/Vol] 0.6 mg/dL 0.3-1.2 [facility] No Panel InformationOrdered By: Vernell Singletary on 01-20-2022 Adrenocorticotropic Hormone <1.5 pg/mL [facility] Comment on above: ACTH reference inter wander for samples collected between 7 and10 AM.Performed at: [facility] [facility] [id number] Director: Teja Washburn PhD, Phone: [phone] ACTH reference inter wander for samples collected between 7 and 10 AM. Performed at: [facility] [id number] Employment Services Director: Teja Washburn PhD, Phone: [phone] Random cortisol measurementO rdered By: Vernell Singletary on 01-20-2022 Cortisol [Mass/Vol] 3.2 ug/dL [facility] Comment on above: Reference range: AM 6 - 24 ug/dl PM <10 ug/dl Reference range: AM 6 - 24 ug/dl PM <10 ug/dl TSH DL <= 0.005 mIU/L QnOrde red By: Vernell Singletary on 01-20-2022 TSH Qn 1.96 m[IU]/L 0.45-5.33 [facility] Thyroxine (T4) free [Mass/vo lume] in Serum or PlasmaOrdered By: Vernell Singletary on 01-20-2022 Free T4 [Mass/Vol] 1.39 ng/dL 0.61-1.12 [facility] Body fluid albumin measureme nt (mass/volume)Ordered By: Joseluis Yee on 01-19-2022 Albumin (Body fld) [Mass/Vol] 3.1 g/dL 3.2-5.5 [facility] Creatinine and Glomerular fi ltration rate.predicted panel (S/P/Bld)Ordered By: Joseluis Yee on 01-19-2022 Creatinine [Mass/Vol] 0.72 mg/dL 0.44-1.03 [facility] Estimated glomerular filtrat ion rate (GFR) non- AmericanOrdered By: Joseluis Yee on 01-19-2022 GFR/1.73 sq M.predicted among non-blacks MDRD (S/P/Bld) [Vol rate/Area] > 60 mL/Min [facility] Globulin Calc (S) [Mass/Vol] Ordered By: Joseluis Yee on 01-19-2022 Globulin (S) [Mass/Vol] 2.9 g/dL [facility] No Panel InformationOrdered By: Joseluis Yee on 01-19-2022 Estimated GFR () > 60 mL/Min [facility] Comment on above: GFR estimated refere nce range: According to KDOQI guidelines, <60 ml/min/1.73m2 is sufficient to diagnose a patient with chronic kidney disease. Pharmacy Creatinine Clearance (Chem 62.26 [facility] Protein [Mass/volume] in Ser um or PlasmaOrdered By: Joseluis Yee on 01-19-2022 Protein [Mass/Vol] 6.0 g/dL 6.1-7.9 [facility] Serum or plasma alanine waggoner otransferase measurement without P-5'-P (enzymatic activiOrdered By: Joseluis Yee on 01-19-2022 ALT No additional P-5'-P [Catalytic activity/Vol] 100 U/L 10-60 [facility] Serum or plasma albumin/glob ulin mass ratioOrdered By: Joseluis Yee on 01-19-2022 Albumin/Globulin [Mass ratio] 1.1 {ratio} [facility] Serum or plasma alkaline andrzej sphatase measurement (enzymatic activity/volume)Ordered By: Joseluis Yee 01-19-2022 ALP [Catalytic activity/Vol] 61 U/L 32-92 [facility] Serum or plasma aspartate am inotransferase measurement (enzymatic activity/volume)Ordered By: Joseluis Yee on 01-19-2022 AST [Catalytic activity/Vol] 73 U/L 10-42 [facility] Serum or plasma calcium chen urement (mass/volume)Ordered By: Joseluis Yee on 01-19-2022 Calcium [Mass/Vol] 8.6 mg/dL 8.2-10.2 [facility] Serum or plasma chloride herminio surement (moles/volume)Ordered By: Joseluis Yee on 01-19-2022 Chloride [Moles/Vol] 103 mmol/L 95-114 [facility] Serum or plasma glucose chen urement (mass/volume)Ordered By: Joseluis Yee on 01-19-2022 Glucose [Mass/Vol] 148 mg/dL 70-100 [facility] Comment on above: ADA recommended refe rence rangeRandom Glucose Reference Range is dependent on time and content of last meal. Glucose of more than 200 mg/dL in a nonstressed, ambulatory subject supports the diagnosis of Diabetes Mellitus. ADA recommended refe rence range Random Glucose Reference Range is dependent on time and content of last meal. Glucose of more than 200 mg/dL in a nonstressed, ambulatory subject supports the diagnosis of Diabetes Mellitus. Serum or plasma potassium me asurement (moles/volume)Ordered By: Joseluis Yee on 01-19-2022 Potassium [Moles/Vol] 4.0 mmol/L 3.5-5.1 [facility] Serum or plasma sodium measu rement (moles/volume)Ordered By: Joseluis Yee 01-19-2022 Sodium [Moles/Vol] 139 mmol/L 136-146 [facility] Serum or plasma total biliru bin measurement (mass/volume)Ordered By: Joseluis Yee 01-19-2022 Bilirubin [Mass/Vol] 0.5 mg/dL 0.3-1.2 [facility] Serum or plasma total carbon dioxide measurement (moles/volume)Ordered By: Joseluis Yee on 01-19-2022 CO2 [Moles/Vol] 26.9 mmol/L 22.0-30.0 [facility] Serum or plasma urea nitroge n measurement (mass/volume)Ordered By: Joseluis Yee on 01-19-2022 Urea nitrogen [Mass/Vol] 22 mg/dL 9- [facility] No Panel InformationOrdered By: Joseluis Yee on 01-18-2022 Miscellaneous Test See comment [facility] Comment on above: See report. Scanned copy available in EMR. Serum angiotensin converting enzyme (RADHA) measurementOrdered By: Wilfrido Argueta on 01-18-2022 Angiotensin converting enzyme [Catalytic activity/Vol] 25 U/L [facility] Comment on above: Performed at: [address] [id number] Director: Teja Washburn PhD, Phone: [phone] Performed at: [employer] [facility] [employer] [address] [id number] Employment Services Director: Teja Washburn PhD, Phone: [phone] Monocyte %Ordered By: Joseline Mari on 01-17-2022 Monocyte % 22 umol/L 11- [facility] Basophils Auto (Bld) [#/Vol] Ordered By: Joseluis Yee on 01-16-2022 Basophils (Bld) [#/Vol] 0.1 10*3/uL 0.0-0.2 [facility] Basophils/100 WBC Auto (Bld) Ordered By: Joseluis Yee on 01-16-2022 Basophils/100 WBC (Bld) 0.8 % [facility] Blood hemoglobin measurement (mass/volume)Ordered By: Joseluis Yee on 01-16-2022 Hemoglobin (Bld) [Mass/Vol] 13.7 g/dL 11.8-15.4 [facility] Blood leukocytes automated c ount (number/volume)Ordered By: Joseluis Yee on 01-16-2022 WBC (Bld) [#/Vol] 6.2 10*3/uL 4.5-11.0 [facility] COVID-19 Positive/NegativeOr dered By: Joseluis Yee on 01-16-2022 SARS-CoV-2 (COVID-19) N gene JACK+probe Ql (Resp) Negative Negative [facility] Comment on above: Testing for SARS-CoV -2 by RT-PCRThis test was developed and its performance characteristics determined by [employer]) and validated at the [facility]. This test has not been FDA cleared or approved. This test has been authorized by FDA under an Emergency Use Authorization (EUA). This test has been validated in accordance with the FDA's Guidance Document (Policy for Diagnostics Testing in Laboratories Certified to Perform High Complexity Testing under CLIA prior to Emergency Use Authorization for Coronavirus Disease-2019 during the Public Health Emergency) issued on January 15, 2020. This test is only authorized for the duration of time the declaration that circumstances exist justifying the authorization of the emergency use of in vitro diagnostic tests for detection of SARS-CoV-2 virus and/or diagnosis of COVID-19 infection under section 564(b)(1) of the Act, 21 U.S.C. 360bbb-3(b)(1), unless the authorization is terminated or revoked sooner. Testing for SARS-CoV -2 by RT-PCR This test was developed and its performance characteristics determined by [employer] ([employer]) and validated at the [facility]. This test has not been FDA cleared or approved. This test has been authorized by FDA under an Emergency Use Authorization (EUA). This test has been validated in accordance with the FDA's Guidance Document (Policy for Diagnostics Testing in Laboratories Certified to Perform High Complexity Testing under CLIA prior to Emergency Use Authorization for Coronavirus Disease-2019 during the Public Health Emergency) issued on January 15, 2020. This test is only authorized for the duration of time the declaration that circumstances exist justifying the authorization of the emergency use of in vitro diagnostic tests for detection of SARS-CoV-2 virus and/or diagnosis of COVID-19 infection under section 564(b)(1) of the Act, 21 U.S.C. 360bbb-3(b)(1), unless the authorization is terminated or revoked sooner. Eosinophils Auto (Bld) [#/Vo l]Ordered By: Joseluis Yee on 01-16-2022 Eosinophils (Bld) [#/Vol] 0.0 10*3/uL 0.0-0.45 [facility] Eosinophils/100 WBC Auto (Bl d)Ordered By: Joseluis Yee on 01-16-2022 Eosinophils/100 WBC (Bld) 0.5 % [facility] Erythrocyte distribution wid th Auto (RBC) [Ratio]Ordered By: Joseluis Yee on 01-16-2022 Erythrocyte distribution width (RBC) [Ratio] 13.2 % 11.9-15.3 [facility] Folate [Mass/volume] in Seru m or PlasmaOrdered By: Joseluis Yee on 01-16-2022 Folate [Mass/Vol] ng/mL >5.9 [facility] Comment on above: Folate reference ran ge: >5.9 ng/mlThe WHO technical consultation on folate and vitamin [id number] has determined that folate concentrations lessthan 4 ng/ml are considered deficient. Folate reference ran ge: >5.9 ng/ml The WHO technical consultation on folate and vitamin b12 deficiencies has determined that folate concentrations less than 4 ng/ml are considered deficient. Glucose mean value [Mass/vol ume] in Blood Estimated from glycated hemoglobinOrdered By: Joseluis Yee on 01-16-2022 Average glucose Estimated from glycated hemoglobin (Bld) [Mass/Vol] 114 mg/dL [facility] Hematocrit Auto (Bld) [Volum e fraction]Ordered By: Joseluis Yee on 01-16-2022 Hematocrit (Bld) [Volume fraction] 41.1 % 34.0-46.4 [facility] Hemoglobin A1c percentageOrd ered By: Joseluis Yee on 01-16-2022 HbA1c (Bld) [Mass fraction] 5.6 % 4.3-5.6 [facility] Comment on above: Increased risk for d iabetes: 5.7 - 6.4diabetes: >6.4glycemic control for adults with diabetes: <7.0 Increased risk for d iabetes: 5.7 - 6.4 diabetes: >6.4 glycemic control for adults with diabetes: <7.0 Laboratory - Chemistry and C hemistry - challengeOrdered By: Joseluis Yee on 01-16-2022 Cobalamin (Vitamin B12) [Mass/Vol] 242 pg/mL 180-914 [facility] Laboratory - Hematology and Cell countsOrdered By: Joseluis Yee on 01-16-2022 Nucleated RBC/100 WBC (Bld) [Ratio] 0.0 % 0-0.5 [facility] Laboratory - Microbiology an d Antimicrobial susceptibilityOrdered By: Joseluis Yee on 01-16-2022 SARS-CoV-2 (COVID-19) RNA JACK+probe Ql (Unsp spec) N/A [facility] Lymphocytes Auto (Bld) [#/Vo l]Ordered By: Joseluis Yee on 01-16-2022 Lymphocytes (Bld) [#/Vol] 0.6 10*3/uL 1.00-4.8 [facility] Lymphocytes/100 WBC Auto (Bl d)Ordered By: Joseluis Yee on 01-16-2022 Lymphocytes/100 WBC (Bld) 9.7 % [facility] MCH Auto (RBC) [Entitic mass ]Ordered By: Joseluis Yee on 01-16-2022 MCH (RBC) [Entitic mass] 31.9 pg 24.7-34.3 [facility] MCHC Auto (RBC) [Mass/Vol]Or dered By: Joseluis Yee on 01-16-2022 MCHC (RBC) [Mass/Vol] 33.4 g/dL 32.0-35.0 [facility] MCV Auto (RBC) [Entitic vol] Ordered By: Joseluis Yee on 01-16-2022 MCV (RBC) [Entitic vol] 95.5 fL 80-100 [facility] Monocytes Auto (Bld) [#/Vol] Ordered By: Joseluis Yee on 01-16-2022 Monocytes (Bld) [#/Vol] 0.5 10*3/uL 0.0-0.8 [facility] Monocytes/100 WBC Auto (Bld) Ordered By: Joseluis Yee on 01-16-2022 Monocytes/100 WBC (Bld) 8.2 % [facility] Neutrophils Auto (Bld) [#/Vo l]Ordered By: Joseluis Yee on 01-16-2022 Neutrophils (Bld) [#/Vol] 5.0 10*3/uL 1.8-7.7 [facility] Neutrophils/100 WBC Auto (Bl d)Ordered By: Joseluis Yee on 01-16-2022 Neutrophils/100 WBC (Bld) 80.8 % [facility] Platelet mean volume Auto (B ld) [Entitic vol]Ordered By: Joseluis Yee on 01-16-2022 Platelet mean volume (Bld) [Entitic vol] 6.7 fL 6.3-10.7 [facility] Platelets Auto (Bld) [#/Vol] Ordered By: Joseluis Yee on 01-16-2022 Platelets (Bld) [#/Vol] 231 10*3/uL 150-450 [facility] RBC Auto (Bld) [#/Vol]Ordere d By: Joseluis Yee on 01-16-2022 RBC (Bld) [#/Vol] 4.30 10*6/uL 3.60-5.00 [facility] Albumin [Mass/volume] in Ser um or PlasmaOrdered By: Gardenia Carlisle on 12-21-2021 Albumin [Mass/Vol] 3.4 g/dL 3.2-5.5 [facility] Basophils Auto (Bld) [#/Vol] Ordered By: Gardenia Carlisle on 12-21-2021 Basophils (Bld) [#/Vol] 0.0 10*3/uL 0.0-0.2 [facility] Basophils/100 WBC Auto (Bld) Ordered By: Gardenia Carlisle on 12-21-2021 Basophils/100 WBC (Bld) 0.7 % [facility] Blood hemoglobin measurement (mass/volume)Ordered By: Gardenia Carlisle on 12-21-2021 Hemoglobin (Bld) [Mass/Vol] 13.1 g/dL 11.8-15.4 [facility] Blood leukocytes automated c ount (number/volume)Ordered By: Gardenia Carlisle on 12-21-2021 WBC (Bld) [#/Vol] 6.4 10*3/uL 4.5-11.0 [facility] Creatinine and Glomerular fi ltration rate.predicted panel (S/P/Bld)Ordered By: Gardenia Carlisle on 12-21-2021 Creatinine [Mass/Vol] 0.95 mg/dL 0.44-1.03 [facility] Eosinophils Auto (Bld) [#/Vo l]Ordered By: Gardenia Carlisle on 12-21-2021 Eosinophils (Bld) [#/Vol] 0.1 10*3/uL 0.0-0.45 [facility] Eosinophils/100 WBC Auto (Bl d)Ordered By: Gardenia Carlisle on 12-21-2021 Eosinophils/100 WBC (Bld) 1.3 % [facility] Erythrocyte distribution wid th Auto (RBC) [Ratio]Ordered By: Gardenia Carlisle on 12-21-2021 Erythrocyte distribution width (RBC) [Ratio] 13.4 % 11.9-15.3 [facility] Estimated glomerular filtrat ion rate (GFR) non- AmericanOrdered By: Gardenia Carlisle on 12-21-2021 GFR/1.73 sq M.predicted among non-blacks MDRD (S/P/Bld) [Vol rate/Area] 57 mL/Min [facility] Globulin Calc (S) [Mass/Vol] Ordered By: Gardenia Carlisle on 12-21-2021 Globulin (S) [Mass/Vol] 3.3 g/dL [facility] Hematocrit Auto (Bld) [Volum e fraction]Ordered By: Gardenia Carlisle on 12-21-2021 Hematocrit (Bld) [Volume fraction] 39.2 % 34.0-46.4 [facility] Laboratory - Hematology and Cell countsOrdered By: Gardenia Carlisle on 12-21-2021 Nucleated RBC/100 WBC (Bld) [Ratio] 0.0 % 0-0.5 [facility] Lymphocytes Auto (Bld) [#/Vo l]Ordered By: Gardenia Carlisle on 12-21-2021 Lymphocytes (Bld) [#/Vol] 0.8 10*3/uL 1.00-4.8 [facility] Lymphocytes/100 WBC Auto (Bl d)Ordered By: Gardenia Carlisle on 12-21-2021 Lymphocytes/100 WBC (Bld) 12.3 % [facility] MCH Auto (RBC) [Entitic mass ]Ordered By: Gardenia Carlisle on 12-21-2021 MCH (RBC) [Entitic mass] 33.0 pg 24.7-34.3 [facility] MCHC Auto (RBC) [Mass/Vol]Or dered By: Gardenia Carlisle on 12-21-2021 MCHC (RBC) [Mass/Vol] 33.4 g/dL 32.0-35.0 [facility] MCV Auto (RBC) [Entitic vol] Ordered By: Gardenia Carlisle on 12-21-2021 MCV (RBC) [Entitic vol] 98.6 fL 80-100 [facility] Monocytes Auto (Bld) [#/Vol] Ordered By: Gardenia Carlisle on 12-21-2021 Monocytes (Bld) [#/Vol] 0.6 10*3/uL 0.0-0.8 [facility] Monocytes/100 WBC Auto (Bld) Ordered By: Gardenia Carlisle on 12-21-2021 Monocytes/100 WBC (Bld) 10.0 % [facility] Neutrophils Auto (Bld) [#/Vo l]Ordered By: Gardenia Carlisle on 12-21-2021 Neutrophils (Bld) [#/Vol] 4.8 10*3/uL 1.8-7.7 [facility] Neutrophils/100 WBC Auto (Bl d)Ordered By: Gardenia Carlisle on 12-21-2021 Neutrophils/100 WBC (Bld) 75.7 % [facility] No Panel InformationOrdered By: Gardenia Carlisle on 12-21-2021 Estimated GFR () > 60 mL/Min [facility] Comment on above: GFR estimated refere nce range: According to KDOQI guidelines, <60 ml/min/1.73m2 is sufficient to diagnose a patient with chronic kidney disease. Pharmacy Creatinine Clearance (Chem 52.56 [facility] Platelet mean volume Auto (B ld) [Entitic vol]Ordered By: Gardenia Carlisle on 12-21-2021 Platelet mean volume (Bld) [Entitic vol] 6.7 fL 6.3-10.7 [facility] Platelets Auto (Bld) [#/Vol] Ordered By: Gardenia Carlisle on 12-21-2021 Platelets (Bld) [#/Vol] 257 10*3/uL 150-450 [facility] Protein [Mass/volume] in Ser um or PlasmaOrdered By: Gardenia Carlisle on 12-21-2021 Protein [Mass/Vol] 6.7 g/dL 6.1-7.9 [facility] RBC Auto (Bld) [#/Vol]Ordere d By: Gardenia Carlisle on 12-21-2021 RBC (Bld) [#/Vol] 3.97 10*6/uL 3.60-5.00 [facility] Serum or plasma alanine waggoner otransferase measurement without P-5'-P (enzymatic activiOrdered By: Gardenia Carlisle on 12-21-2021 ALT No additional P-5'-P [Catalytic activity/Vol] 68 U/L 10-60 [facility] Serum or plasma albumin/glob ulin mass ratioOrdered By: Gardenia Carlisle on 12-21-2021 Albumin/Globulin [Mass ratio] 1.0 {ratio} [facility] Serum or plasma alkaline andrzej sphatase measurement (enzymatic activity/volume)Ordered By: Gardenia Carlisle on 12-21-2021 ALP [Catalytic activity/Vol] 76 U/L 32-92 [facility] Serum or plasma aspartate am inotransferase measurement (enzymatic activity/volume)Ordered By: Gardenia Carlisle on 12-21-2021 AST [Catalytic activity/Vol] 109 U/L 10-42 [facility] Serum or plasma calcium chen urement (mass/volume)Ordered By: Gardenia Carlisle on 12-21-2021 Calcium [Mass/Vol] 8.7 mg/dL 8.2-10.2 [facility] Serum or plasma chloride herminio surement (moles/volume)Ordered By: Gardenia Carlisle on 12-21-2021 Chloride [Moles/Vol] 102 mmol/L 95-114 [facility] Serum or plasma glucose chen urement (mass/volume)Ordered By: Gardenia Carlisle on 12-21-2021 Glucose [Mass/Vol] 101 mg/dL 70-100 [facility] Comment on above: ADA recommended refe rence rangeRandom Glucose Reference Range is dependent on time and content of last meal. Glucose of more than 200 mg/dL in a nonstressed, ambulatory subject supports the diagnosis of Diabetes Mellitus. ADA recommended refe rence range Random Glucose Reference Range is dependent on time and content of last meal. Glucose of more than 200 mg/dL in a nonstressed, ambulatory subject supports the diagnosis of Diabetes Mellitus. Serum or plasma potassium me asurement (moles/volume)Ordered By: Gardenia Carlisle on 12-21-2021 Potassium [Moles/Vol] 4.1 mmol/L 3.5-5.1 [facility] Serum or plasma sodium measu rement (moles/volume)Ordered By: Gardenia Carlisle on 12-21-2021 Sodium [Moles/Vol] 137 mmol/L 136-146 [facility] Serum or plasma total biliru bin measurement (mass/volume)Ordered By: Gardenia Carlisle on 12-21-2021 Bilirubin [Mass/Vol] 0.5 mg/dL 0.3-1.2 [facility] Serum or plasma total carbon dioxide measurement (moles/volume)Ordered By: Gardenia Carlisle on 12-21-2021 CO2 [Moles/Vol] 26.8 mmol/L 22.0-30.0 [facility] Serum or plasma urea nitroge n measurement (mass/volume)Ordered By: Gardenia Carlisle on 12-21-2021 Urea nitrogen [Mass/Vol] 20 mg/dL 9-23 [facility] No Panel InformationOrdered By: Bertha Christianson on 12-06-2021 Adrenocorticotropic Hormone 16.4 pg/mL [facility] Comment on above: ACTH reference inter wander for samples collected between 7 and10 AM.Performed at: [facility] [id number] Director: Teja Washburn PhD, Phone: [phone] ACTH reference inter wander for samples collected between 7 and 10 AM. Performed at: [facility] [id number] Employment Services Director: Teja Washburn PhD, Phone: [phone] Random cortisol measurementO rdered By: Bertha Christianson on 12-06-2021 Cortisol [Mass/Vol] 7.1 ug/dL [facility] Comment on above: Reference range: AM 6 - 24 ug/dl PM <10 ug/dl Reference range: AM 6 - 24 ug/dl PM <10 ug/dl TSH DL <= 0.005 mIU/L QnOrde red By: Bertha Christianson on 12-06-2021 TSH Qn 1.04 m[IU]/L 0.45-5.33 [facility] Thyroxine (T4) free [Mass/vo lume] in Serum or PlasmaOrdered By: Bertha Christianson on 12-06-2021 Free T4 [Mass/Vol] 1.34 ng/dL 0.61-1.12 [facility] Glucose Glucometer (BldC) [M ass/Vol]Ordered By: Bertha Christianson on 11-28-2021 Glucose [Mass/Vol] 97 mg/dL [facility] Comment on above: Random Glucose Refer ence Range is dependent on time and content of last meal. Glucose of more than 200 mg/dL in a nonstressed, ambulatory subject supports the diagnosis of Diabetes Mellitus. No Panel InformationOrdered By: Bertha Christianson on 11-28-2021 Bedside Glucose Comment Glu2: cleaned meter [facility] Clostridioides difficile tox in B tcdB gene [Presence] in Stool by JACK with probe deteOrdered By: Bertha Christianson on 11-02-2021 C. difficile toxin B tcdB gene JACK+probe Ql (Stl) Positive Negative [facility] Comment on above: Results calledat 174 4 on 11/02/21.Testing performed by RT-PCR Results called at 1744 on 11/02/21. Testing performed by RT-PCR Laboratory - Chemistry and C hemistry - challengeon 10-20-2021 CO2 [Moles/Vol] 25 mmol/L Normal 21-31 [facility] DO Work Phone: No Panel Informationon 10-20 2.29 {mcIU/mL} Normal 0.34-5.60 [facility] DO Work Phone: 28 {Int._Unit/L} Normal 5-43 [facility] DO Work Phone: >[phone] Normal >=59 [facility] Work Phone: Comment on above: eGFR is race adjuste d. AA=. Chronic kidney disea se could be indicated at eGFR's of less than 60 mL/min/1.73m2. Kidney failure is indicated at less than 15 mL/min/1.73m2. 16 {mEq/L} Normal 6-16 [facility] Work Phone: [phone] 100 mmol/L below low threshold 101-111 [facility] Work Phone: [phone] 3.2 mmol/L below low threshold 3.5-5.3 [facility] Work Phone: [phone] 138 mmol/L Normal 135-145 [facility] Work Phone: [phone] 8.5 mg/dL below low threshold 8.9-11.1 [facility] Work Phone: [phone] 19 {No_Units} Normal 10-20 [facility] DO Work Phone: [phone] 0.8 mg/dL Normal 0.5-1.3 [facility] Work Phone: [phone] 15 mg/dL Normal 5-21 [facility] Work Phone: [phone] 86 mg/dL Normal 55-199 [facility] Work Phone: [phone] Comment on above: If this glucose resu lt represents a fasting glucose, interpretation should refer to the following reference range: 55-99 mg/dL [facility]iologyon 10-20-2021 XR Chest 2 Views Normal [facility] Work Phone: Serum or plasma carcinoembry onic antigen measurement (mass/volume)Ordered By: Bertha Christianson on 10-17-2021 Carcinoembryonic Ag [Mass/Vol] 2.9 ng/mL 0.0-3.0 [facility] Automated erythrocytes count in urine sediment (number/area)Ordered By: Bertha Christianson on 09-26-2021 RBC Auto (Urine sed) [#/Area] 3-4 [HPF] 0-4 [facility] Automated leukocytes count i n urine sediment (number/area)Ordered By: Bertha Christianson on 09-26-2021 WBC Auto (Urine sed) [#/Area] 1-2 [HPF] 0-4 [facility] Bilirubin Test strip Ql (U)O rdered By: Bertha Christianson on 09-26-2021 Bilirubin Ql (U) Negative Negative [facility] Color Auto (U)Ordered By: Heriberto Christianson on 09-26-2021 Color (U) Yellow Yellow [facility] Ketones Auto test strip (U) [Mass/Vol]Ordered By: Bertha Christianson on 09-26-2021 Ketones (U) [Mass/Vol] Negative Negative [facility] Laboratory - UrinalysisOrder ed By: Bertha Christianson on 09-26-2021 Hyaline casts LM Ql (Urine sed) 0-8 [LPF] 0-8 [facility] Nitrite Test strip Ql (U)Ord ered By: Bertha Christianson on 09-26-2021 Nitrite Ql (U) Negative Negative [facility] Protein Auto test strip (U) [Mass/Vol]Ordered By: Bertha Christianson on 09-26-2021 Protein (U) [Mass/Vol] Negative Negative [facility] Specific gravity Auto test s trip (U) [Rel density]Ordered By: Bertha Christianson on 09-26-2021 Specific gravity (U) [Rel density] 1.015 1.001-1.03 0 [facility] Squamous epithelial cells de tection in urine sediment by light microscopyOrdered By: Bertha Christianson on 09-26-2021 Epithelial cells.squamous LM Ql (Urine sed) 3-4 [HPF] 0-2 [facility] Urine bacteria detection by automated methodOrdered By: Bertha Christianson on 09-26-2021 Bacteria Auto Ql (U) None seen None Seen [facility] Urine clarity by refractomet ry automatedOrdered By: Bertha Christianson on 09-26-2021 Clarity Refractometry automated (U) Clear Clear [facility] Urine glucose measurement by automated test strip (mass/volume)Ordered By: Bertha Christianson on 09-26-2021 Glucose Auto test strip (U) [Mass/Vol] Normal mg/dL Normal [facility] Urine hemoglobin detection b y automated test stripOrdered By: Bertha Christianson on 09-26-2021 Hemoglobin Auto test strip Ql (U) Negative Negative [facility] Urine leukocyte esterase det ection by automated test stripOrdered By: Bertha Christianson on 09-26-2021 Leukocyte esterase Auto test strip Ql (U) 1+ Negative [facility] Urobilinogen Auto test strip (U) [Mass/Vol]Ordered By: Bertha Christianson on 09-26-2021 Urobilinogen (U) [Mass/Vol] Normal mg/dL Normal [facility] pH Auto test strip (U)Ordere d By: Bertha Christianson on 09-26-2021 pH (U) 7.5 [pH] 5.0-9.0 [facility] Urine culture routineOrdered By: Bertha Christianson on 08-20-2021 Bacteria identified Cx Nom (U) 2 Days [facility] No Panel InformationOrdered By: Bertha Christianson on 08-19-2021 Total Triiodothyronine 0.40 ng/mL Low 0.87-1.78 [facility] Urine culture routineOrdered By: Bertha Christianson on 08-18-2021 Bacteria identified Cx Nom (U) 2 Days [facility] Bacteria identified Cx Nom (U) 2 Days [facility] Urine sediment crystal ident ification by light microscopyOrdered By: Bertha Christianson on 08-18-2021 Crystals LM Nom (Urine sed) Starch [HPF] [facility] Comment on above: RARE Yeast detection in urine sed iment by light microscopyOrdered By: Bertha Christianson on 08-18-2021 Yeast LM Ql (Urine sed) None seen [HPF] None Seen [facility] IO EKG Electrocardiogram- 12 Leadon 08-10-2021 IO EKG Electrocardiogram- 12 Lead See Scanned Document [facility] Heart-Andrew 600 DO Work Phone: Tobacco Screening.on 021 Fall risk assessment a) No falls within the last year [facility] Coby 600 DO Work Phone: Tobacco use status [facility]PH[facility] b) No [facility] Coby Driver DO Work Phone: No Panel Informationon 07-20 [email or web address] [id number] [facility] Coby Driver DO Work Phone: [facility] Coby Driver DO Work Phone: COVID-19 Positive/NegativeOr dered By: Bertha Christianson on 07-18-2021 SARS-CoV-2 (COVID-19) N gene JACK+probe Ql (Resp) Negative Negative [facility] Comment on above: Testing for SARS-CoV -2 by RT-PCRThis test was developed and its performance characteristics determined by [employer] and validated at the [facility]. This test has not been FDA cleared or approved. This test has been authorized by FDA under an Emergency Use Authorization (EUA). This test has been validated in accordance with the FDA's Guidance Document (Policy for Diagnostics Testing in Laboratories Certified to Perform High Complexity Testing under CLIA prior to Emergency Use Authorization for Coronavirus Disease-2019 during the Public Health Emergency) issued on January 15, 2020. This test is only authorized for the duration of time the declaration that circumstances exist justifying the authorization of the emergency use of in vitro diagnostic tests for detection of SARS-CoV-2 virus and/or diagnosis of COVID-19 infection under section 564(b)(1) of the Act, 21 U.S.C. 360bbb-3(b)(1), unless the authorization is terminated or revoked sooner. Testing for SARS-CoV -2 by RT-PCR This test was developed and its performance characteristics determined by [employer]) and validated at the [facility]. This test has not been FDA cleared or approved. This test has been authorized by FDA under an Emergency Use Authorization (EUA). This test has been validated in accordance with the FDA's Guidance Document (Policy for Diagnostics Testing in Laboratories Certified to Perform High Complexity Testing under CLIA prior to Emergency Use Authorization for Coronavirus Disease-2019 during the Public Health Emergency) issued on January 15, 2020. This test is only authorized for the duration of time the declaration that circumstances exist justifying the authorization of the emergency use of in vitro diagnostic tests for detection of SARS-CoV-2 virus and/or diagnosis of COVID-19 infection under section 564(b)(1) of the Act, 21 U.S.C. 360bbb-3(b)(1), unless the authorization is terminated or revoked sooner. Activated partial thrombopla stin time (aPTT) in platelet poor plasma by coagulation aOrdered By: Bertha Christianson on 07-14-2021 aPTT Coag (PPP) [Time] 35.0 s 25.1-36.5 [facility] - CoagulationOrde red By: Bertha Christianson on 07-14-2021 PT Coag (PPP) [Time] 11.5 s 9.0-12.9 [facility] Platelet poor plasma interna tional normalized ratio (INR) by coagulation assay (relatOrdered By: Bretha Christianson on 07-14-2021 INR Coag (PPP) [Relative time] 1.0 {INR} [facility] Comment on above: INR Therapeutic Rang e A) Pre- and Peroperative OAT started two weeks before surgery. NOT HIP SURGERY: 1.5 - 2.5 HIP SURGERY: 2 - 3B) Primary and secondary prevention of venous THROMBOSIS: 2 - 3C) Active venous thrombosis, pulmonary embolismand prevention of recurrent venous thrombosis: 2 - 3D) Prevention of arterial thromboembolismincluding patients with mechanical heart valves: 3 - 4.5 INR Therapeutic Rang e A) Pre- and Peroperative OAT started two weeks before surgery. NOT HIP SURGERY: 1.5 - 2.5 HIP SURGERY: 2 - 3 B) Primary and secondary prevention of venous THROMBOSIS: 2 - 3 C) Active venous thrombosis, pulmonary embolism and prevention of recurrent venous thrombosis: 2 - 3 D) Prevention of arterial thromboembolism including patients with mechanical heart valves: 3 - 4.5 Vital Signs Date Time Vital Sign Value Performing Clinician Facility 06-01-2025 13:47-0400 Body height 165.1 cm Wong Ball DO Work Phone: [facility] 06-01-2025 13:47-0400 Body mass index (BMI) [Ratio] 32.4 kg/m2 Wong Ball DO Work Phone: [facility] 06-01-2025 13:47-0400 Body weight 88.45 kg Wong Ball DO Work Phone: [facility] 06-01-2025 13:47-0400 Diastolic blood pressure 73 mm[Hg] Wong Ball DO Work Phone: [facility] 06-01-2025 13:47-0400 Heart rate 65 /min Wong Ball DO Work Phone: [facility] 06-01-2025 13:47-0400 Respiratory rate 12 /min Wong Ball DO Work Phone: [facility] 06-01-2025 13:47-0400 Systolic blood pressure 158 mm[Hg] Wong Ball DO Work Phone: [facility] 03-24-2025 13:20-0400 Body height 167.6 cm Yolanda Sherwood RN [facility] 03-24-2025 13:20-0400 Body mass index (BMI) [Ratio] 31.64 kg/m2 Yolanda Sherwood RN [facility] 03-24-2025 13:20-0400 Body weight 88.91 kg Yolanda Sherwood RN [facility] 03-24-2025 13:20-0400 Diastolic blood pressure 72 mm[Hg] Yolanda Sherwood RN [facility] 03-24-2025 13:20-0400 Heart rate 53 /min Yolanda Sherwood RN [facility] 03-24-2025 13:20-0400 Systolic blood pressure 124 mm[Hg] Yolanda Sherwood RN [facility] 01-27-2025 15:20-0400 Body height 165.1 cm [facility] 01-27-2025 15:20-0400 Body mass index (BMI) [Ratio] 31.4 kg/m2 [facility] 01-27-2025 15:20-0400 Body weight 85.81 kg [facility] 01-27-2025 15:20-0400 Diastolic blood pressure 70 mm[Hg] [facility] 01-27-2025 15:20-0400 Heart rate 54 /min [facility] 01-27-2025 15:20-0400 Respiratory rate 24 /min [facility] 01-27-2025 15:20-0400 SaO2% (BldA) [Mass fraction] 93 % [facility] 01-27-2025 15:20-0400 Systolic blood pressure 170 mm[Hg] [facility] 12-02-2024 13:37-0500 Diastolic blood pressure 80 mm[Hg] Heidi Kuhn MD Work Phone: [facility] 12-02-2024 13:37-0500 Heart rate 48 /min Heidi Kuhn MD Work Phone: [facility] 12-02-2024 13:37-0500 Systolic blood pressure 132 mm[Hg] Heidi Kuhn MD Work Phone: [facility] 09-29-2024 14:52-0500 Body height 165.1 cm [facility] 09-29-2024 14:52-0500 Body mass index (BMI) [Ratio] 31.5 kg/m2 [facility] 09-29-2024 14:52-0500 Body weight 85.89 kg [facility] 09-29-2024 14:52-0500 Diastolic blood pressure 89 mm[Hg] [facility] 09-29-2024 14:52-0500 Heart rate 54 /min [facility] 09-29-2024 14:52-0500 Respiratory rate 12 /min [facility] 09-29-2024 14:52-0500 Systolic blood pressure 139 mm[Hg] [facility] 07-14-2024 11:09-0400 Body height 165.1 cm DO Hiral Samsa - TBH Work Phone: [facility] 07-14-2024 11:09-0400 Body mass index (BMI) [Ratio] 31.1 kg/m2 DO Hiral Samsa - [facility] Work Phone: [facility] 07-14-2024 11:09-040 Body temperature 97.7 [degF] DO Hiral Samsa - TBCr Work Phone: [facility] 07-14-2024 11:09040 Body weight 84.82 kg DO Hiral Samsa - TB[facility] Work Phone: [facility] 07-14-2024 11:09-0400 Diastolic blood pressure 67 mm[Hg] DO Hiral Samsa - TBH Work Phone: [facility] 07-14-2024 11:09-0400 Heart rate 52 /min DO Hiralmelvina Monterrososa - TB Work Phone: [facility] 07-14-2024 11:09-0400 Respiratory rate 20 /min DO Hiral Locsa - TBCr Work Phone: [facility] 07-14-2024 11:09-0400 SaO2% (BldA) [Mass fraction] 98 % DO Hiral Locsa - TBH Work Phone: [facility] 07-14-2024 11:09-0400 Systolic blood pressure 162 mm[Hg] DO Hiral Samsa - TBH Work Phone: [facility] 07-07-2024 14:14-0400 Body height 165.1 cm DO Hiral Samsa - TBH Work Phone: [facility] 07-07-2024 14:14-0400 Body mass index (BMI) [Ratio] 31.1 kg/m2 DO Hiral Samsa - TBH Work Phone: [facility] 07-07-2024 14:140400 Body weight 84.82 kg DO Hiralmelvina Monterrososa - TBCr Work Phone: [facility] 07-07-2024 14:14-0400 Diastolic blood pressure 78 mm[Hg] DO Hiral Locsa - TBH Work Phone: [facility] 07-07-2024 14:14-0400 Heart rate 56 /min DO Hiralmelvina Monterrososa - TBCr Work Phone: [facility] 07-07-2024 14:14-0400 SaO2% (BldA) [Mass fraction] 98 % DO Hiral Locsa - TBH Work Phone: [facility] 07-07-2024 14:14-0400 Systolic blood pressure 138 mm[Hg] DO Hiralmelvina Monterrososa - TBCr Work Phone: [facility] 05-19-2024 10:51-0400 Body height 165.1 cm DO Hiralmelvina Monterrososa - TBCr Work Phone: [facility] 05-19-2024 10:51-0400 Body mass index (BMI) [Ratio] 31.4 kg/m2 DO Hiralmelvina Monterrososa - TBCr Work Phone: [facility] 05-19-2024 10:51-0400 Body temperature 98 [degF] DO Hiralmelvina Monterrososa - TBCr Work Phone: [facility] 05-19-2024 10:51-0400 Body weight 85.72 kg DO Hiralmelvina Monterrososa - TBH Work Phone: [facility] 05-19-2024 10:51-0400 Diastolic blood pressure 71 mm[Hg] DO Hiral Locsa - TBH Work Phone: [facility] 05-19-2024 10:51-0400 Heart rate 52 /min DO Hiral Locsa - TBH Work Phone: [facility] 05-19-2024 10:51-0400 Respiratory rate 18 /min DO Hiral Samsa - TBH Work Phone: [facility] 05-19-2024 10:51-0400 SaO2% (BldA) [Mass fraction] 98 % DO Hiral Samsa - TBH Work Phone: [facility] 05-19-2024 10:51-0400 Systolic blood pressure 181 mm[Hg] DO Hiral Samsa - TBH Work Phone: [facility] 03-28-2024 14:13-0400 Body height 165.1 cm DO Hiral Samsa - TBH Work Phone: [facility] 03-28-2024 14:13-0400 Body mass index (BMI) [Ratio] 32 kg/m2 DO Hiral Samsa - TBH Work Phone: [facility] 03-28-2024 14:13-0400 Body weight 87.31 kg DO Hiral Samsa - TBH Work Phone: [facility] 03-28-2024 14:13-0400 Diastolic blood pressure 71 mm[Hg] DO Hiral Samsa - TBH Work Phone: [facility] 03-28-2024 14:13-0400 Heart rate 50 /min DO Hiral Samsa - TBH Work Phone: [facility] 03-28-2024 14:13-0400 Respiratory rate 20 /min DO Hiral Samsa - TBH Work Phone: [facility] 03-28-2024 14:13-0400 Systolic blood pressure 170 mm[Hg] DO Hiral Samsa - TBH Work Phone: [facility] 03-05-2024 14:00-0400 Body height 167.6 cm Ron Cadena MD Work Phone: [facility] 03-05-2024 14:00-0400 Body mass index (BMI) [Ratio] 30.73 kg/m2 Ron Cadena MD Work Phone: [facility] 03-05-2024 14:00-0400 Body weight 86.36 kg Ron Cadena MD Work Phone: [facility] 03-05-2024 14:00-0400 Diastolic blood pressure 72 mm[Hg] Ron Cadena MD Work Phone: [facility] 03-05-2024 14:00-0400 Heart rate 51 /min Ron Cadena MD Work Phone: [facility] 03-05-2024 14:00-0400 Systolic blood pressure 138 mm[Hg] Ron Cadena MD Work Phone: [facility] 11-05-2023 13:26-0500 Body height 165.1 cm DO Hiral Samsa - TBH Work Phone: [facility] 11-05-2023 13:26-0500 Body mass index (BMI) [Ratio] 32.3 kg/m2 DO Hiral Samsa - TBH Work Phone: [facility] 11-05-2023 13:26-0500 Body temperature 98.4 [degF] DO Hiral Samsa - TBH Work Phone: [facility] 11-05-2023 13:26-0500 Body weight 87.99 kg DO Hiral Samsa - TBH Work Phone: [facility] 11-05-2023 13:26-0500 Diastolic blood pressure 84 mm[Hg] DO Hiral Samsa - TBH Work Phone: [facility] 11-05-2023 13:26-0500 Heart rate 54 /min DO Hiral Samsa - [facility] Work Phone: [facility] 11-05-2023 13:26-0500 Respiratory rate 20 /min DO Hiral Samsa - TBH Work Phone: [facility] 11-05-2023 13:26-0500 SaO2% (BldA) [Mass fraction] 98 % DO Hiral [facility] Work Phone: [facility] 11-05-2023 13:26-0500 Systolic blood pressure 156 mm[Hg] DO Hiral [facility] Work Phone: [facility] 09-26-2023 14:00-0500 Body height 170.18 cm Wong Ball Other [facility] [employer] Other 09-26-2023 14:00-0500 Body mass index (BMI) [Ratio] 30.01 kg/m2 Wong Ball Other [employer] Other 09-26-2023 14:00-0500 Body weight 86.91 kg Wong Ball Other [employer] Other 09-26-2023 14:00-0500 Diastolic blood pressure 75 mm[Hg] Wong Ball Other [employer] Other 09-26-2023 14:00-0500 Respiratory rate 12 /min Wong Ball Other [employer] Other 09-26-2023 14:00-0500 Systolic blood pressure 136 mm[Hg] Wong Ball Other [employer] Other 07-19-2023 09:45-0400 Body height 170.18 cm Wong Ball Other [employer] Other 07-19-2023 09:45-0400 Body mass index (BMI) [Ratio] 31.26 kg/m2 Wong Ball Other [employer] Other 07-19-2023 09:45-0400 Body weight 90.54 kg Wong Ball Other [employer] Other 07-19-2023 09:45-0400 Diastolic blood pressure 62 mm[Hg] Wong Ball Other [employer] Other 07-19-2023 09:45-0400 Respiratory rate 12 /min Wong Ball Other [employer] Other 07-19-2023 09:45-0400 Systolic blood pressure 122 mm[Hg] Wong Ball Other [employer] Other 04-30-2023 10:04-0400 Body height 165.1 cm [employer] Work Phone: [facility] 04-30-2023 10:04-0400 Body weight 90.08 kg [employer] Work Phone: [facility] 04-30-2023 10:04-0400 Diastolic blood pressure 79 mm[Hg] [employer] Work Phone: [facility] 04-30-2023 10:04-0400 Heart rate 56 /min [employer] Work Phone: [facility] 04-30-2023 10:04-0400 Respiratory rate 18 /min [employer] Work Phone: [facility] 04-30-2023 10:04-0400 SaO2% (BldA) [Mass fraction] 98 % [employer] Work Phone: [facility] 04-30-2023 10:04-0400 Systolic blood pressure 148 mm[Hg] [employer] Work Phone: [facility] 03-20-2023 13:30-0400 Body height 170.18 cm Wong Ball Other [facility] [employer] Other 03-20-2023 13:30-0400 Body mass index (BMI) [Ratio] 31.26 kg/m2 Wong Ball Other [employer] Other 03-20-2023 13:30-0400 Body weight 90.54 kg Wong Ball Other [employer] Other 03-20-2023 13:30-0400 Diastolic blood pressure 69 mm[Hg] Wong Ball Other [employer] Other 03-20-2023 13:30-0400 Respiratory rate 12 /min Wong Ball Other [employer] Other 03-20-2023 13:30-0400 Systolic blood pressure 130 mm[Hg] Wong Ball Other [employer] Other 03-07-2023 13:29-0400 Body height 165.1 cm Wong E Ball Work Phone: [facility] [employer] 250 DO Work Phone: 03-07-2023 13:29-0400 Body mass index (BMI) [Ratio] 32.78 kg/m2 Wong E Ball Work Phone: [facility] [employer] 250 DO Work Phone: 03-07-2023 13:29-0400 Body surface area Derived from formula 1.97 m2 Wong E Ball Work Phone: [facility] [employer] 250 DO Work Phone: 03-07-2023 13:29-0400 Body weight 89.36 kg Wong E Ball Work Phone: [facility] [employer] 250 DO Work Phone: 03-07-2023 13:29-0400 Diastolic blood pressure 70 mm[Hg] Wong E Ball Work Phone: [facility] [employer] 250 DO Work Phone: 03-07-2023 13:29-0400 Heart rate 64 /min Wong E Ball Work Phone: [facility] [employer] 250 DO Work Phone: 03-07-2023 13:29-0400 Systolic blood pressure 134 mm[Hg] Wong E Ball Work Phone: [facility] 250 DO Work Phone: 01-04-2023 13:13-0400 Body height 165.1 cm Wong E Ball Work Phone: [facility] [employer] 250 DO Work Phone: 01-04-2023 13:13-0400 Body mass index (BMI) [Ratio] 32.35 kg/m2 Wong E Ball Work Phone: [facility] 250 DO Work Phone: 01-04-2023 13:13-0400 Body surface area Derived from formula 1.95 m2 Wong E Ball Work Phone: [facility] 250 DO Work Phone: 01-04-2023 13:13-0400 Body weight 88.17 kg Wong E Ball Work Phone: [facility] 250 DO Work Phone: 01-04-2023 13:13-0400 Diastolic blood pressure 70 mm[Hg] Wong E Ball Work Phone: [facility] 250 DO Work Phone: 01-04-2023 13:13-0400 Heart rate 59 /min Wong E Ball Work Phone: [facility] 250 DO Work Phone: 01-04-2023 13:13-0400 Systolic blood pressure 148 mm[Hg] Wong E Ball Work Phone: [facility] 250 DO Work Phone: 10-30-2022 09:51-0500 Body height 165.1 cm DO Wong Ball Work Phone: [facility] 10-30-2022 09:51-0500 Body weight 88.9 kg DO Wong Ball Work Phone: [facility] 10-30-2022 09:51-0500 Diastolic blood pressure 53 mm[Hg] DO Wong Ball Work Phone: [facility] 10-30-2022 09:51-0500 Heart rate 60 /min DO Wong Ball Work Phone: [facility] 10-30-2022 09:51-0500 Respiratory rate 18 /min DO Wong Ball Work Phone: [facility] 10-30-2022 09:51-0500 SaO2% (BldA) [Mass fraction] 98 % DO Wong Ball Work Phone: [facility] 10-30-2022 09:51-0500 Systolic blood pressure 111 mm[Hg] DO Wong Ball Work Phone: [facility] 08-10-2022 09:51-0400 Diastolic blood pressure 68 mm[Hg] DO Wong Ball Work Phone: [facility] 08-10-2022 09:51-0400 Heart rate 60 /min DO Wong Ball Work Phone: [facility] 08-10-2022 09:51-0400 Respiratory rate 16 /min DO Wong Ball Work Phone: [facility] 08-10-2022 09:51-0400 SaO2% (BldA) [Mass fraction] 100 % DO Wong Ball Work Phone: [facility] 08-10-2022 09:51-0400 Systolic blood pressure 148 mm[Hg] DO Wong Ball Work Phone: [facility] 08-10-2022 09:09-0400 Body height 165.1 cm DO Wong Ball Work Phone: [facility] 08-10-2022 09:09-0400 Body mass index (BMI) [Ratio] 33.3 kg/m2 DO Wong Ball Work Phone: [facility] 08-10-2022 09:09-0400 Body weight 90.71 kg DO Wong Ball Work Phone: [facility] 08-10-2022 06:20-0400 Body temperature 98.2 [degF] DO Wong Ball Work Phone: [facility] 08-10-2022 06:20-0400 Inhaled oxygen flow rate 2 L/min DO Wong Ball Work Phone: [facility] 08-01-2022 08:17-0400 Body weight 88.9 kg DO Wong Ball Work Phone: [facility] 08-01-2022 08:16-0400 Diastolic blood pressure 60 mm[Hg] DO Wong Ball Work Phone: [facility] 08-01-2022 08:16-0400 Heart rate 58 /min DO Wong Ball Work Phone: [facility] 08-01-2022 08:16-0400 Respiratory rate 18 /min DO Wong Ball Work Phone: [facility] 08-01-2022 08:16-0400 SaO2% (BldA) [Mass fraction] 97 % DO Wong Ball Work Phone: [facility] 08-01-2022 08:16-0400 Systolic blood pressure 142 mm[Hg] DO Wong Ball Work Phone: [facility] 07-20-2022 13:10-0400 Body temperature 97.5 [degF] Hiralmelvina Monterrososa Work Phone: [facility] 07-20-2022 13:10-0400 Body weight 92.53 kg Hiralmelvina Monterrososa Work Phone: [facility] 07-20-2022 13:10-0400 Diastolic blood pressure 63 mm[Hg] Hiral Samsa Work Phone: [facility] 07-20-2022 13:10-0400 Heart rate 87 /min Hiral Mccarty Work Phone: [facility] 07-20-2022 13:10-0400 Respiratory rate 16 /min Hiral Mccarty Work Phone: [facility] 07-20-2022 13:10-0400 SaO2% (BldA) [Mass fraction] 97 % Hiral Mccarty Work Phone: [facility] 07-20-2022 13:10-0400 Systolic blood pressure 140 mm[Hg] Hiral Mccarty Work Phone: [facility] 06-09-2022 10:57-0400 Body temperature 97.7 [degF] DO Bertha Adamowicz II Work Phone: [facility] 06-09-2022 10:57-0400 Body weight 88.9 kg DO Bertha Adamowicz II Work Phone: [facility] 06-09-2022 10:57-0400 Diastolic blood pressure 68 mm[Hg] DO Bertha Adamowicz II Work Phone: [facility] 06-09-2022 10:57-0400 Heart rate 58 /min DO Bertha Adamowicz II Work Phone: [facility] 06-09-2022 10:57-0400 Respiratory rate 20 /min DO Bertha Adamowicz II Work Phone: [facility] 06-09-2022 10:57-0400 SaO2% (BldA) [Mass fraction] 96 % DO Bertha Adamowicz II Work Phone: [facility] 06-09-2022 10:57-0400 Systolic blood pressure 145 mm[Hg] DO Bertha Adamowicz II Work Phone: [facility] 06-05-2022 12:00-0400 81 1 Referring Provider Unknown [facility] [address] [place] Work Phone: Comment on above: [id number] 05-16-2022 11:33-0400 Body height 165.1 cm Referring Provider Unknown [facility] 600 DO Work Phone: 05-16-2022 11:33-0400 Body mass index (BMI) [Ratio] 32.28 kg/m2 Referring Provider Unknown [facility] 600 DO Work Phone: 05-16-2022 11:33-0400 Body surface area Derived from formula 1.95 m2 Referring Provider Unknown [facility] 600 DO Work Phone: 05-16-2022 11:33-0400 Body weight 88 kg Referring Provider Unknown [facility] 600 DO Work Phone: 05-16-2022 11:33-0400 Diastolic blood pressure 76 mm[Hg] Referring Provider Unknown [facility] 600 DO Work Phone: 05-16-2022 11:33-0400 Heart rate 66 /min Referring Provider Unknown [facility] [address] DO Work Phone: 05-16-2022 11:33-0400 Systolic blood pressure 136 mm[Hg] Referring Provider Unknown [facility] 600 DO Work Phone: 05-08-2022 10:32-0400 Body temperature 97.9 [degF] DO Bertha Adamowicz II Work Phone: [facility] 05-08-2022 10:32-0400 Body weight 87.9 kg DO Bertha Adamowicz II Work Phone: [facility] 05-08-2022 10:32-0400 Diastolic blood pressure 67 mm[Hg] DO Bertha Adamowicz II Work Phone: [facility] 05-08-2022 10:32-0400 Heart rate 63 /min DO Bertha Adamowicz II Work Phone: [facility] 05-08-2022 10:32-0400 Respiratory rate 20 /min DO Bertha Adamowicz II Work Phone: [facility] 05-08-2022 10:32-0400 SaO2% (BldA) [Mass fraction] 97 % DO Bertha Adamowicz II Work Phone: [facility] 05-08-2022 10:32-0400 Systolic blood pressure 125 mm[Hg] DO Bertha Adamowicz II Work Phone: [facility] 04-10-2022 10:10-0400 Body temperature 97.8 [degF] DO Wong Ball Work Phone: [facility] 04-10-2022 10:10-0400 Body weight 87.45 kg DO Wong Ball Work Phone: [facility] 04-10-2022 10:10-0400 Diastolic blood pressure 57 mm[Hg] DO Wong Ball Work Phone: [facility] 04-10-2022 10:10-0400 Heart rate 67 /min DO Wong Ball Work Phone: [facility] 04-10-2022 10:10-0400 Respiratory rate 18 /min DO Wong Ball Work Phone: [facility] 04-10-2022 10:10-0400 SaO2% (BldA) [Mass fraction] 98 % DO Wong Ball Work Phone: [facility] 04-10-2022 10:10-0400 Systolic blood pressure 120 mm[Hg] DO Wong Ball Work Phone: [facility] 02-24-2022 10:19-0400 Body temperature 97.9 [degF] DO Wong Ball Work Phone: [facility] 02-24-2022 10:19-0400 Body weight 86.04 kg DO Wong Ball Work Phone: [facility] 02-24-2022 10:19-0400 Diastolic blood pressure 64 mm[Hg] DO Wong Ball Work Phone: [facility] 02-24-2022 10:19-0400 Heart rate 76 /min DO Wong Ball Work Phone: [facility] 02-24-2022 10:19-0400 Respiratory rate 18 /min DO Wong Ball Work Phone: [facility] 02-24-2022 10:19-0400 SaO2% (BldA) [Mass fraction] 96 % DO Wong Ball Work Phone: [facility] [facility] 02-24-2022 10:19-0400 Systolic blood pressure 124 mm[Hg] DO Wong Ball Work Phone: [facility] 01-31-2022 07:30-0400 SaO2% (BldA) [Mass fraction] 96 % DO Wong Ball Work Phone: [facility] 01-31-2022 04:50-0400 Body temperature 97.6 [degF] DO Wong Ball Work Phone: [facility] 01-31-2022 04:50-0400 Diastolic blood pressure 80 mm[Hg] DO Wong Ball Work Phone: [facility] 01-31-2022 04:50-0400 Heart rate 84 /min DO Wong Ball Work Phone: [facility] 01-31-2022 04:50-0400 Respiratory rate 16 /min DO Wong Ball Work Phone: [facility] 01-31-2022 04:50-0400 Systolic blood pressure 143 mm[Hg] DO Wong Ball Work Phone: [facility] 01-30-2022 15:30-0400 Inhaled oxygen flow rate 1 L/min DO Wong Ball Work Phone: [facility] 01-29-2022 05:48-0400 Body weight 88 kg DO Wong Ball Work Phone: [facility] 01-27-2022 07:47-0400 Body height 165.1 cm DO Wong Ball Work Phone: [facility] 01-20-2022 22:02-0400 Body mass index (BMI) [Ratio] 32.5 kg/m2 DO Wong Ball Work Phone: [facility] 01-20-2022 16:00-0400 Body temperature 97.8 [degF] DO Wong Ball Work Phone: [facility] 01-20-2022 16:00-0400 Diastolic blood pressure 80 mm[Hg] DO Wong Ball Work Phone: [facility] 01-20-2022 16:00-0400 Heart rate 85 /min DO Wong Ball Work Phone: [facility] 01-20-2022 16:00-0400 Inhaled oxygen flow rate 2 L/min DO Wong Ball Work Phone: [facility] 01-20-2022 16:00-0400 Respiratory rate 16 /min DO Wong Ball Work Phone: [facility] 01-20-2022 16:00-0400 SaO2% (BldA) [Mass fraction] 98 % DO Wong Ball Work Phone: [facility] 01-20-2022 16:00-0400 Systolic blood pressure 152 mm[Hg] DO Wong Ball Work Phone: [facility] 01-20-2022 04:56-0400 Body weight 91 kg DO Wong Ball Work Phone: [facility] 01-19-2022 15:29-0400 Body height 165.1 cm DO Wong Ball Work Phone: [facility] 01-16-2022 17:21-0400 Body mass index (BMI) [Ratio] 33 kg/m2 DO Wong Ball Work Phone: [facility] 01-16-2022 14:47-0400 Body weight 88.9 kg DO Wong Ball Work Phone: [facility] 01-16-2022 14:47-0400 Diastolic blood pressure 78 mm[Hg] DO Wong Ball Work Phone: [facility] 01-16-2022 14:47-0400 Heart rate 70 /min DO Wong Ball Work Phone: [facility] 01-16-2022 14:47-0400 Respiratory rate 16 /min DO Wong Ball Work Phone: [facility] 01-16-2022 14:47-0400 SaO2% (BldA) [Mass fraction] 97 % DO Wong Ball Work Phone: [facility] 01-16-2022 14:47-0400 Systolic blood pressure 146 mm[Hg] DO Wong Ball Work Phone: [facility] 01-11-2022 09:03-0400 Diastolic blood pressure 72 mm[Hg] DO Wong Ball Work Phone: [facility] 01-11-2022 09:03-0400 Heart rate 67 /min DO Wong Ball Work Phone: [facility] 01-11-2022 09:03-0400 Respiratory rate 18 /min DO Wong Ball Work Phone: [facility] 01-11-2022 09:03-0400 SaO2% (BldA) [Mass fraction] 98 % DO Wong Ball Work Phone: [facility] 01-11-2022 09:03-0400 Systolic blood pressure 159 mm[Hg] DO Wong Ball Work Phone: [facility] 01-11-2022 09:02-0400 Body height 165.1 cm DO Wong Ball Work Phone: [facility] 01-11-2022 09:02-0400 Body weight 88.45 kg DO Wong Ball Work Phone: [facility] 12-21-2021 11:00-0500 Body temperature 97.7 [degF] DO Wong Ball Work Phone: [facility] 11-14-2021 11:24-0500 Body height 166.37 cm DO Wong Ball Work Phone: [facility] 11-14-2021 11:24-0500 Body mass index (BMI) [Ratio] 34.2 kg/m2 DO Wong Ball Work Phone: [facility] 11-14-2021 11:24-0500 Body weight 94.6 kg DO Wong Ball Work Phone: [facility] 11-14-2021 11:19-0500 Diastolic blood pressure 70 mm[Hg] DO Wong Ball Work Phone: [facility] 11-14-2021 11:19-0500 Heart rate 72 /min DO Wong Ball Work Phone: [facility] 11-14-2021 11:19-0500 Respiratory rate 18 /min DO Wong Ball Work Phone: [facility] 11-14-2021 11:19-0500 SaO2% (BldA) [Mass fraction] 100 % DO Wong Ball Work Phone: [facility] 11-14-2021 11:19-0500 Systolic blood pressure 162 mm[Hg] DO Wong Ball Work Phone: [facility] 11-14-2021 10:18-0500 Body temperature 98.1 [degF] DO Wong Ball Work Phone: [facility] 08-29-2021 10:56-0500 Body height 165.1 cm DO Wong Ball Work Phone: [facility] 08-10-2021 [id number] Body height 165.1 cm Referring Provider Unknown [facility] [employer] [address] DO Work Phone: 08-10-2021 11:31-0400 Body mass index (BMI) [Ratio] 33.78 kg/m2 Referring Provider Unknown [facility] [address] DO Work Phone: 08-10-2021 11:31-0400 Body surface area Derived from formula 1.99 m2 Referring Provider Unknown [facility] [address] DO Work Phone: 08-10-2021 11:31-0400 Body weight 92.08 kg Referring Provider Unknown [facility] [address] DO Work Phone: 08-10-2021 11:31-0400 Diastolic blood pressure 50 mm[Hg] Referring Provider Unknown [facility] [address] DO Work Phone: 08-10-2021 11:31-0400 Heart rate 52 /min Referring Provider Unknown [facility] [address] DO Work Phone: 08-10-2021 11:31-0400 Systolic blood pressure 140 mm[Hg] Referring Provider Unknown [facility] DO Work Phone: Encounters Encounter Date Encounter Type Care Provider Facility Start: 06-01-2025 End: 06-01-2025 ambulatory Wong Espino DO Work Phone: [facility] Work Phone: Start: 06-01-2025 End: 06-01-2025 Patient encounter procedure Wong Espino DO -[facility] Work Phone: Start: 05-25-2025 End: 05-25-2025 ambulatory [facility] Start: 05-07-2025 End: 05-07-2025 ambulatory Pfo Infusion Chair 1 Nieves Miller [facility] Comment on above: Malignant neoplasm o f lung, unspecified laterality, unspecified part of lung ([facility]-HCC) (Primary Dx); Port-A-Cath in place Start: 04-20-2025 End: 04-20-2025 ambulatory Wong Espino DO Work Phone: [facility] Work Phone: Start: 04-20-2025 End: 04-20-2025 Patient encounter procedure Wong Espino DO -[facility] Work Phone: Start: 04-10-2025 End: 04-10-2025 ambulatory Wong Espino DO Work Phone: [facility] Work Phone: Start: 04-10-2025 End: 04-10-2025 Patient encounter procedure Wong sEpino DO -[facility] Work Phone: Start: 04-01-2025 End: 04-01-2025 ambulatory RENE ASIF Not Available Start: 04-01-2025 End: 04-01-2025 Bamboo flowsheet Rene Khaner DO Work Phone: [facility] Start: 04-01-2025 End: 04-01-2025 Bamboo flowsheet Rene Asif DO Work Phone: [facility] Start: 03-26-2025 End: 03-26-2025 ambulatory Pfo Infusion Chair 1 Nieves Miller [facility] - Medical Oncology Comment on above: Malignant neoplasm o f lung, unspecified laterality, unspecified part of lung (CMS-HCC) (Primary Dx); Port-A-Cath in place Start: 03-24-2025 End: 03-24-2025 Professional / ancillary services management Yolanda Sherwood RN [facility] Comment on above: Persistent atrial fi brillation (Multi) Start: 03-24-2025 End: 03-24-2025 ambulatory [facility] Start: 02-12-2025 End: 02-12-2025 ambulatory Pfo Infusion Chair 1 Nieves Miller [facility] - Medical Oncology Comment on above: Malignant neoplasm o f lung, unspecified laterality, unspecified part of lung (CMS-HCC) (Primary Dx); Port-A-Cath in place Start: 01-27-2025 End: 01-27-2025 ambulatory [facility] Work Phone: Start: 01-27-2025 End: 01-27-2025 Patient encounter procedure [facility] Phys[facility] Work Phone: Start: 01-01-2025 End: 01-01-2025 ambulatory Pfo Infusion Chair 1 Nieves Miller [facility] - [facility] Oncology Comment on above: Malignant neoplasm o f lung, unspecified laterality, unspecified part of lung (CMS-HCC) (Primary Dx); Port-A-Cath in place Start: 12-24-2024 End: 12-24-2024 ambulatory [facility] Work Phone: Start: 12-24-2024 End: 12-24-2024 Patient encounter procedure [facility] Work Phone: Start: 12-02-2024 End: 12-02-2024 Office outpatient visit 25 minutes Heidi Kuhn MD Work Phone: [facility] Comment on above: Persistent atrial fi brillation (Multi) (Primary Dx); Paroxysmal atrial fibrillation (Multi); High risk medication use; Essential hypertension; SOB (shortness of breath) on exertion; Former smoker; Chronic obstructive pulmonary disease, unspecified COPD type (Multi) Start: 12-02-2024 End: 12-02-2024 ambulatory [facility] Start: 11-10-2024 End: 11-10-2024 ambulatory [facility] Work Phone: Start: 11-10-2024 End: 11-10-2024 Patient encounter procedure [facility] Work Phone: Start: 10-06-2024 End: 10-06-2024 ambulatory Pfo Infusion Chair 1 Nieves Miller [facility] - Medical Oncology Comment on above: Malignant neoplasm o f lung, unspecified laterality, unspecified part of lung ([facility]-HCC) (Primary Dx); Port-A-Cath in place Start: 09-29-2024 End: 09-29-2024 Patient encounter procedure [facility] Work Phone: Start: 09-27-2024 Patient encounter procedure [facility] Start: 09-26-2024 Non-patient / Non-visit [facility] Work Phone: Start: 08-25-2024 End: 08-25-2024 ambulatory Pfo Infusion Chair 1 Nieves Miller [facility] - Medical Oncology Comment on above: Malignant neoplasm o f lung, unspecified laterality, unspecified part of lung ([facility]-HCC) (Primary Dx); Port-A-Cath in place Start: 08-21-2024 End: 08-21-2024 Orders Only Mouna Miller [facility] - Medical Oncology Start: 08-18-2024 End: 08-18-2024 ambulatory Ron Cadena Facility:[facility] Start: 08-06-2024 End: 08-06-2024 ambulatory DO Hiral Samsa - [facility] Work Phone: [facility] Work Phone: Start: 08-06-2024 End: 08-06-2024 Patient encounter procedure DO Hiral Samsa - [facility] Work Phone: [facility] Physician [facility] Work Phone: Start: 07-24-2024 End: 07-24-2024 ambulatory DO Hiral Samsa - [facility] Work Phone: [facility] Work Phone: Start: 07-24-2024 End: 07-24-2024 Patient encounter procedure DO Hiral Samsa - [facility] Work Phone: [facility] Physician [facility] Work Phone: Start: 07-14-2024 Registered Recurring DO Hiral Samsa - [facility] Work Phone: [facility] Work Phone: Start: 07-14-2024 End: 07-14-2024 ambulatory DO Hiral Samsa - [facility] Work Phone: [facility] Work Phone: Start: 07-14-2024 End: 07-14-2024 Patient encounter procedure DO Hiral Samsa - [facility] Work Phone: [facility] Work Phone: Start: 07-07-2024 End: 07-07-2024 ambulatory DO Hiralmelvina Mccarty - CAROLANN Work Phone: [facility] Work Phone: Start: 07-07-2024 End: 07-07-2024 Patient encounter procedure DO Hiralmelvina VUONG Work Phone: [facility] Work Phone: Start: 06-27-2024 End: 06-27-2024 ambulatory DO Hiralmelvina Mccarty - CAROLANN Work Phone: [facility] Work Phone: Start: 06-27-2024 End: 06-27-2024 Patient encounter procedure DO Hiral Mccarty - CAR[facility] Work Phone: [facility] Work Phone: Start: 06-23-2024 End: 06-24-2024 External Result Encounter Bertha Christianson DO Work Phone: [facility] Unsolicited Start: 06-23-2024 End: 06-24-2024 External Result Encounter Bertha Christianson DO Work Phone: [facility] External Department Unsolicited Start: 06-23-2024 Registered Recurring DO Hiral Dillard [facility] Work [facility]: Start: 06-17-2024 End: 06-17-2024 ambulatory DO Hiralmelvina Mccarty - TBCr Work Phone: [facility] Work Phone: Start: 06-17-2024 End: 06-17-2024 Patient encounter procedure DO Hiralmelvina Mccarty - TBCr Work Phone: [facility] Work Phone: Start: 06-13-2024 End: 06-13-2024 ambulatory DO Hiral Samsa - [facility] Work Phone: [facility] Work Phone: Start: 06-13-2024 End: 06-13-2024 Patient encounter procedure DO Hiral Samsa - [facility] Work Phone: [facility] Work Phone: Start: 06-06-2024 Registered Recurring DO Hiral Samsa - [facility] Work Phone: [facility] Work Phone: Start: 06-03-2024 End: 06-03-2024 ambulatory RENE ASIF Not Available Start: 05-19-2024 End: 05-19-2024 ambulatory DO Hiral Samsa - [facility] Work Phone: [facility] Work Phone: Start: 05-19-2024 End: 05-19-2024 Patient encounter procedure DO Hiral Samsa - [facility] Work Phone: [facility] Work Phone: Start: 05-19-2024 Registered Recurring DO Hiral Samsa - [facility] Work Phone: [facility] Work Phone: Start: 05-13-2024 End: 05-13-2024 ambulatory DO Hiral Samsa - [facility] Work Phone: [facility] Work Phone: Start: 05-13-2024 End: 05-13-2024 Patient encounter procedure DO Hiral Samsa - [facility] Work Phone: [facility] Work Phone: Start: 05-02-2024 Registered Recurring DO Hiral Samsa - [facility] Work [facility]: Start: 03-28-2024 End: 03-28-2024 ambulatory DO Hiralmelvina Dillard TBC[facility] Work Phone: [facility] Work Phone: Start: 03-28-2024 End: 03-28-2024 Patient encounter procedure DO Hiral Mccarty - [facility] Work Phone: [facility] Work Phone: Start: 03-21-2024 Registered Recurring DO Hiral Mccarty - TBC[facility] Work Phone: [facility] Work Phone: Start: 03-06-2024 End: 03-06-2024 ambulatory DO Hiral Mccarty - CAROLANN Work Phone: [facility] Work Phone: Start: 03-06-2024 End: 03-06-2024 Patient encounter procedure DO Hiral VUONG Work Phone: [facility] Physician [facility] Work Phone: Start: 03-05-2024 End: 03-06-2024 ambulatory RON CADENA [facility] Start: 03-05-2024 End: 03-05-2024 Office outpatient visit 25 minutes Ron Cadena MD Work Phone: [facility] Comment on above: Paroxysmal atrial fi brillation (Multi) (Primary Dx); Essential hypertension, benign; High risk medication use Start: 03-05-2024 End: 03-05-2024 Subsequent hospital visit by physician Rad External Film EF RAD EXTERNAL FILM [employer]IRTUAL Comment on above: High risk medication use Start: 02-12-2024 End: 02-12-2024 ambulatory DO Hiral Mccarty - T[facility] Work Phone: [facility] Work Phone: Start: 02-12-2024 End: 02-12-2024 Patient encounter procedure DO Hiralmelvina Monterrososa - [facility]C Work Phone: [facility] Physician [facility] Work Phone: Start: 02-08-2024 Registered Recurring DO Hiral Samsa - TBCr Work Phone: [facility] Work Phone: Start: 01-29-2024 End: 01-29-2024 ambulatory DO Hiralmelvina Monterrososa - TBCr Work Phone: [facility] Work Phone: Start: 01-29-2024 End: 01-29-2024 Patient encounter procedure DO Hiralmelvina Monterrososa - TBCr Work Phone: [facility] Work Phone: Start: 12-27-2023 Registered Recurring DO Hiralmelvina Mccarty - TBCr Work Phone: [facility] Work Phone: Start: 12-12-2023 End: 12-12-2023 Patient encounter procedure DO Hiralmelvina Mccarty - TBCr Work Phone: [facility] Work Phone: Start: 11-28-2023 Bamboo flowsheet Rene Hernandez Za hler DO Work Phone: [facility] Start: 11-28-2023 Bamboo flowsheet Rene Mary Za hler DO Work Phone: [facility] Start: 11-15-2023 End: 11-15-2023 ambulatory Ron Cadena Facility:[facility] Start: 11-05-2023 End: 11-05-2023 Patient encounter procedure DO Hiral Samsa - [facility] Work Phone: [facility] Work Phone: Start: 11-05-2023 ambulatory Bertha campbell II Facility:[facility] Start: 10-31-2023 End: 10-31-2023 ambulatory Wong Espino Other [facility] Other Start: 10-31-2023 Nursing evaluation o f patient and report Wong Espino [facility] Start: 10-29-2023 ambulatory Bertha campbell II Facility:[facility] Start: 10-03-2023 End: 10-03-2023 ambulatory Wong Espino Other [facility] Other Start: 10-03-2023 Telephone encounter Wong VALERO [facility] Start: 09-26-2023 End: 09-26-2023 ambulatory Wong Espino Other [facility] Other Start: 09-26-2023 Patient encounter procedure Wong Espino [facility] Start: 08-23-2023 End: 08-23-2023 ambulatory Wong Espino Other [facility] Other Start: 08-23-2023 Nursing evaluation o f patient and report Wong Espino [facility] Start: 08-17-2023 End: 08-17-2023 ambulatory Wong Espino Other [facility] Other Start: 08-17-2023 Telephone encounter Wong VALERO [facility] Start: 07-19-2023 End: 07-19-2023 ambulatory Wong Espino Other [facility] Other Start: 07-19-2023 Office outpatient vi sit 15 minutes Wong Espino [facility] Start: 06-26-2023 Rx Renewal Wong Christian l Work Phone: [facility] [address] DO Work Phone: Start: 06-22-2023 End: 06-22-2023 ambulatory Wong Espino Other [facility] Other Start: 06-22-2023 Nursing evaluation o f patient and report Wong Espino [facility] Start: 05-23-2023 End: 05-23-2023 ambulatory Wong Espino Other [facility] Other Start: 05-23-2023 Nursing evaluation o f patient and report Wong Espino [facility] Start: 04-30-2023 End: 04-30-2023 ambulatory Hiral Mccarty Work Phone: [facility] Work Phone: Start: 04-30-2023 End: 04-30-2023 Registered Recurring Hiral Mccarty Work Phone: [facility] Work Phone: Start: 04-13-2023 End: 04-13-2023 ambulatory Wong Espino Other [facility] Other Start: 04-13-2023 Nursing evaluation o f patient and report Wong Espino [facility] Start: 03-20-2023 End: 03-20-2023 ambulatory Wong Espino Other [facility] Other Start: 03-20-2023 Office outpatient vi sit 25 minutes Wong Espino [facility] Start: 03-15-2023 Patient encounter procedure Wong Espino Work Phone: [facility] [address] DO Work Phone: Start: 03-07-2023 Office outpatient vi sit 25 minutes Wong Espino Work Phone: [facility] [facility] DO Work Phone: Start: 02-22-2023 End: 02-22-2023 ambulatory Wong Espino Other [facility] Other Start: 02-22-2023 Nursing evaluation o f patient and report Wong Espino [facility] Start: 01-30-2023 End: 01-31-[address] DOCTOR LEMA Facility:[facility] Start: 01-16-2023 End: 01-16-2023 ambulatory Sherrie Melissa Other [facility] Other Start: 01-16-2023 Telephone encounter Sherrie Melissa [facility] Start: 01-16-2023 Patient encounter procedure Wong Espino Work Phone: [facility] [address] DO Work Phone: Start: 01-04-2023 Office outpatient vi sit 25 minutes Wong Espino Work Phone: [facility] [address] DO Work Phone: Start: 01-04-2023 End: 01-04-2023 ambulatory PCP UNKNOWN Facility: Start: 01-04-2023 Telephone encounter Sherrie Melissa [facility] Start: 01-03-2023 End: 01-03-2023 ambulatory Wong Espino Other [facility] Other Start: 01-03-2023 Nursing evaluation o f patient and report Wong Espino [facility] Start: 12-19-2022 End: 12-20-[address] WONG ESPINO Facility:[facility] Start: 12-11-2022 Telephone encounter Jaison Mars DO Work Phone: Ophthalmology Comment on above: Results Start: 12-09-2022 End: 12-09-2022 ambulatory JAISON MARS Facility:[facility] Start: 12-09-2022 End: 12-09-2022 Subsequent hospital visit by physician [employer] [facility] (I-Stat/1.5t) Work Phone: Radiology Comment on above: Diplopia [H53.2] Start: 12-04-2022 Rx Renewal Referring Prov ider Unknown [facility] [address] DO Work Phone: Start: 11-28-2022 End: 11-28-2022 ambulatory Wong Espino Other [facility] Other Start: 11-28-2022 Nursing evaluation o f patient and report Wong Espino [facility] Start: 11-16-2022 End: 11-16-2022 ambulatory JAISON MARS Facility:[facility] Start: 11-16-2022 End: 11-16-2022 Patient encounter procedure Jaison Mars DO Work Phone: Ophthalmology Comment on above: Diplopia (Primary Dx ) Start: 10-30-2022 End: 10-30-2022 ambulatory DO Wong Espino Work Phone: [facility] Work Phone: Start: 10-30-2022 End: 10-30-2022 Registered Recurring DO Wong Espino Work Phone: [facility] Work Phone: Start: 10-26-2022 End: 10-26-2022 ambulatory DO Wong Espino Work Phone: [facility] Work Phone: Start: 10-26-2022 End: 10-26-2022 Patient encounter procedure DO Wong Espion Work Phone: [facility] [place] Work Phone: Start: 10-26-2022 Registered Recurring DO Johan in Srinivas [facility] Work Phone: Start: 10-23-2022 Chart Update Referring Prov ider Unknown -[facility] [address] DO Work Phone: Start: 10-23-2022 End: 10-23-2022 ambulatory DO Wong Espino Work Phone: [facility] Work Phone: Start: 10-23-2022 End: 10-23-2022 Patient encounter procedure DO Wong Espino Work Phone: [facility] Work Phone: Start: 09-21-2022 Patient encounter procedure Referring Provider Unknown [facility] [address] DO Work Phone: Start: 09-21-2022 Registered Recurring DO Benjam in Ball Work [facility]: [facility] Work Phone: Start: 09-20-2022 Patient encounter procedure Referring Provider Unknown [facility] [address] DO Work Phone: Start: 09-19-2022 Adult health examination Wong Espino Other [facility] Other Start: 09-19-2022 Encounter for genera l adult medical examination without abnormal findings Wong Espino Other [facility] Other Start: 09-04-2022 Telephone encounter Referring Provider Unknown [facility] 600 DO Work Phone: Start: 08-10-2022 End: 08-10-2022 Admission to same day surgery center DO Wong Ball Work Phone: [facility] [place] Start: 08-10-2022 End: 08-10-2022 ambulatory DO Wong Ball Work Phone: [facility] Work Phone: Start: 08-07-2022 Registered Recurring DO Benjam in Ball Work Phone: [facility] Start: 08-07-2022 End: 08-07-2022 ambulatory DO Wong Ball Work Phone: [facility] Work Phone: Start: 08-07-2022 End: 08-07-2022 Patient encounter procedure DO Wong Ball Work Phone: [facility] Start: 07-25-2022 End: 07-25-2022 ambulatory Hiralmelvina Monterrososa Work Phone: [facility] Work Phone: Start: 07-25-2022 End: 07-25-2022 Registered Recurring Hiral Mccarty Work Phone: [facility] Start: 07-20-2022 End: 07-20-2022 ambulatory Hiral Mccarty Work Phone: [facility] Work Phone: Start: 07-20-2022 End: 07-20-2022 Registered Recurring Hiral Mccarty Work Phone: [facility] Start: 06-12-2022 Rx Renewal Referring Prov ider Unknown [facility] [address] DO Work Phone: Start: 06-09-2022 End: 06-09-2022 Registered Recurring DO Bertha Christianson II Work Phone: [facility] Start: 06-05-2022 Patient encounter procedure Referring Provider Unknown [facility] [address] [place] Work Phone: Start: 05-16-2022 End: 05-17-[address] WONG ESPINO Facility:H1 Start: 05-16-2022 ambulatory Ron Cadena Facilit y: Start: 05-16-2022 AUDIT Referring Prov ider Unknown [facility] [address] DO Work Phone: Start: 05-08-2022 End: 05-08-2022 Registered Recurring DO Bertha Wilfridoshannan II Work Phone: [facility] Start: 04-23-2022 Chart Update Referring Prov ider Unknown [facility] [address] DO Work Phone: Start: 04-18-2022 End: 04-19-[address] WONG ESPINO Facility:H1 Start: 04-10-2022 End: 04-10-2022 Registered Recurring DO Wong Espino Work Phone: [facility] Start: 03-31-2022 Patient encounter procedure Referring Provider Unknown [facility] [address] DO Work Phone: Start: 02-24-2022 End: 02-24-2022 Registered Recurring DO Wong Ball Work Phone: [facility] Start: 01-20-2022 End: 01-31-2022 Evaluation and management of inpatient DO Wong Ball Work Phone: [facility] Start: 01-19-2022 End: 01-20-2022 Evaluation and management of inpatient DO Wong Ball Work Phone: [facility] Start: 01-16-2022 End: 01-16-2022 Registered Recurring DO Wong Ball Work Phone: [facility] Start: 01-16-2022 Registered Recurring DO Benjam in Ball Work Phone: [facility] Start: 01-11-2022 End: 01-11-2022 Patient encounter procedure DO Wong Ball Work Phone: [facility] [place] Start: 11-14-2021 End: 11-14-2021 Emergency department patient visit DO Wong Ball Work Phone: [facility] Start: 10-24-2021 Chart Update Referring Prov ider Unknown [facility] Work Phone: Start: 10-20-2021 Chart Update Referring Prov ider Unknown [facility] [address] DO Work Phone: Start: 10-06-2021 Patient encounter procedure Referring Provider Unknown [facility] [address] DO Work Phone: Start: 08-10-2021 Office outpatient vi sit 25 minutes Referring Provider Unknown [facility] [address] DO Work Phone: Start: 07-18-2021 Phys/qhp telephone evaluation 21-30 min Referring Provider Unknown [facility] Work Phone: Start: 02-06-2019 End: 02-07-2019 Patient encounter procedure DEFAULT PHYSICIAN Facility:[facility] Procedures Date Procedure Procedure Detail Performing Clinician Start: 04-01-2025 Computerized ophthalmic imaging retina Rene Mary Asif DO Work Phone: Start: 04-01-2025 End: 04-01-2025 [facility] pt 1/> Intermediate stage nonexudative age-related macular degeneration of both eyes Rene Asif DO Work Phone: Comment on above: Intermediate stage nonexudative age-rela paulette macular degeneration of both eyes (Primary Dx); Optic atrophy; Dry eyes; Diplopia Start: 12-02-2024 Ecg routine ecg w/least 12 lds w/i&r Heidi Kuhn MD Work Phone: Start: 06-23-2024 ISTAT XRAY CRE Bertha Christianson DO Work Phone: Start: 06-23-[address] Bertha Christianson DO Work Phone: Start: 06-23-2024 Complete blood count with white cell differential, automated Bertha Christianson DO Work Phone: Start: 06-23-2024 CT of thorax with contrast DO [facility] Work Phone: Start: 06-03-2024 Computerized ophthalmic imaging retina Rene Mary Asif DO Work Phone: Start: 06-03-2024 End: 06-03-2024 [facility] pt 1/> Intermediate stage nonexudative age-related macular degeneration of both eyes Rene Asif DO Work Phone: Comment on above: Intermediate stage nonexudative age-rela paulette macular degeneration of both eyes (Primary Dx); Diplopia; Optic atrophy; Dry eyes Start: 03-05-2024 Ecg routine ecg w/least 12 lds w/i&r Ron Cadena MD Work Phone: Start: 03-05-2024 Radiologic exam chest 2 views Ron Cadena MD Work Phone: Start: 10-29-2023 Carcinoembryonic antigen cea Bertha Gissell zhao II Comment on above: Result Comment: Serial tumor marker resu lts determined by assays using different manufacturers or methods may not be comparable. [facility] Laboratory manager strategic and method: iwoca UNICIdentropy DXI, 2 SITE IMMUNOENZYMATIC ?SANDWICH? ASSAY. PERFORMED BY: [facility] [address] [id number] PATHOLOGIST EDIPHONE OPERATOR CHUCK PERALTA M.D. Performed By: #### C EA, CMP, CBC #### [address] Start: 10-29-2023 Computed tomography of abdomen and pelvis with contrast [facility] Work Phone: Start: 10-29-2023 CT of thorax with [facility] Work Phone: Start: 04-30-2023 Bacteria identified in Urine by Culture DO Hiral [facility] Work Phone: Start: 04-30-2023 [facility] Work Phone: Start: 04-27-2023 Computed tomography of abdomen and pelvis with contrast Hiral [facility] Work Phone: Start: 04-27-2023 CT of thorax with contrast [facility] Work Phone: Start: 02-22-2023 Echocardiography Wong E Ball Work Phone: Start: 12-09-2022 Mri brain brain stem w/o w/contrast material Jaison Mars DO Work Phone: Start: 10-26-2022 CT of thorax with contrast DO Wong B all Work Phone: Start: 10-26-2022 Computed tomography of abdomen and pelvis with contrast DO Wong Ball Work Phone: Start: 10-23-2022 Plain chest X-ray DO Wong Ball Work Phone: Start: 08-10-2022 Plain chest X-ray DO Wong Ball Work Phone: Start: 08-10-2022 OR Infusaport Insertion/Removal (Not Applicable) DO Wong Ball Work Phone: Start: 08-01-2022 MRI of head DO Wong Ball Work Phone: Start: 06-06-2022 Computed tomography of abdomen and pelvis with contrast DO Bertha Joicz II Work Phone: Start: 06-06-2022 CT of thorax with contrast DO Bertha Adamowicz II Work Phone: Start: 02-22-2022 Computed tomography of abdomen and pelvis with contrast DO Wong Ball Work Phone: Start: 02-22-2022 CT of thorax with contrast DO Wong B all Work Phone: Start: 01-20-2022 Esophagogastroduodenoscopy DO Wong B all Work Phone: Start: 01-19-2022 CT of thorax with contrast DO Wong B all Work Phone: Start: 01-17-2022 CT angiography of head DO Wong Ball Work Phone: Start: 01-17-2022 CT of head without contrast DO Wong Ball Work Phone: Start: 01-11-2022 MRI of head DO Wong Ball Work Phone: Start: 12-21-2021 Plain chest X-ray DO Wong Ball Work Phone: Start: 11-28-2021 Positron emission tomography with computed tomography DO Wong Ball Work Phone: Start: 11-14-2021 CT of facial bones without contrast DO Wong Ball Work Phone: Start: 11-14-2021 CT of head without contrast DO Wong Ball Work Phone: Start: 11-14-2021 Plain X-ray of right hand DO Wong Ba ll Work Phone: Start: 11-14-2021 Plain X-ray of right wrist DO Wong B all Work Phone: Start: 08-29-2021 Plain chest X-ray DO Wong Espino Work Phone: Start: 08-18-2021 Plain chest X-ray DO Wong Espino Work Phone: Start: 08-18-2021 Bacteria identified in Urine by Culture DO Hiral Dillard [facility] Work Phone: Start: 08-18-2021 Urine culture DO Wong Espino Work Phone: Start: 08-01-2021 Computed tomography for radiotherapy planning DO Wong Espino Work Phone: Start: 06-15-2021 Positron emission tomography with computed tomography DO Wong Espino Work Phone: Start: 07-19-2017 Screening for osteoporosis Wong Espino Other Start: 07-17-2016 Screening for malignant neoplasm of colon Wong Espino Other Start: 07-12-2016 Screening mammography Wong Espino Other Start: 10-15-2014 Total colonoscopy Referring Provider Unknown Appendectomy Referring Provider Unknown Cataract surgery Referring Provider Unknown Cholecystectomy Referring Provider Unknown Depression screening Jill Espino Other Hysterectomy Referring Provider Unknown Insertion of implant able venous access port Referring Provider Unknown Lumpectomy of breast Referri ng Provider Unknown Screening for malign ant neoplasm of breast Wong Espino Other Tonsillectomy and adenoidectomy Referring Provider Unknown Urine culture DO Bertha Christianson II Work Phone: Plan of Treatment Date Care Activity Detail Author Start: 11-14-2031 DTaP,Tdap and Td Vaccines (2 - Td or Tdap) DTaP,Tdap and Td Vaccines (2 - Td or Tdap) [facility] Start: 11-14-2031 DTaP/Tdap/Td Vaccines (2 - Td or Tdap) DTaP/Tdap/Td Vaccines (2 - Td or Tdap) [facility] Start: 11-14-2031 Urine microalbumin profile DTaP,Tdap,Td Vaccine (2 - Td or Tdap) [facility] Start: 02-12-2026 Fall Risk Screening Fall Risk Screening [facility] Start: 06-18-2025 End: 06-18-2025 ambulatory 06/18/2025 1:30 PM EDT Infusion Nieves Miller [facility] - [facility] Oncology [address] [place] [address] Nieves Miller [facility] Start: 06-15-2025 Influenza vaccination Influenza Vaccine [facility] Start: 06-11-2025 End: 06-11-2025 Patient encounter procedure 06/11/2025 1:50 PM EDT Office Visit [facility] [address] [place] [facility] [address] [place] [address] Heidi Kuhn MD [address] [facility] [place] [address] [facility] Start: 06-01-2025 End: 12-02-2025 Aspartate aminotransferase [Enzymatic activity/volume] in Serum or Plasma by With P-5'-P Aspartate Aminotransferase Lab Routine High risk medication use Expected: 06/01/2025 (Approximate), Expires: 12/02/2025 [facility] Service Area Work Phone: Comment on above: Expected: 06/01/2025 (Approximate), Expi res: 12/02/2025 Start: 06-01-2025 End: 12-02-2025 Basic metabolic 2000 panel - Serum or Plasma Basic Metabolic Panel Lab Routine High risk medication use Expected: 06/01/2025 (Approximate), Expires: 12/02/2025 [facility] Work Phone: Comment on above: Expected: 06/01/2025 (Approximate), Expi res: 12/02/2025 Start: 06-01-2025 End: 12-02-2025 Complete Pulmonary Function Test (Spirometry/DLCO/Lung Volumes) Complete Pulmonary Function Test (Spirometry/DLCO/Lung Volumes) PFT Routine High risk medication use Expected: 06/01/2025 (Approximate), Expires: 12/02/2025 [facility] Work Phone: Comment on above: Expected: 06/01/2025 (Approximate), Expi res: 12/02/2025 Start: 06-01-2025 End: 12-02-2025 Thyrotropin [Units/volume] in Serum or Plasma Thyroid Stimulating Hormone Lab Routine High risk medication use Expected: 06/01/2025 (Approximate), Expires: 12/02/2025 [facility] Work Phone: Comment on above: Expected: 06/01/2025 (Approximate), Expi res: 12/02/2025 Start: 06-01-2025 End: 12-02-2025 XR Chest 2 Views XR chest 2 views Imaging Routine High risk medication use Expected: 06/01/2025 (Approximate), Expires: 12/02/2025 [facility] Work Phone: Comment on above: Expected: 06/01/2025 (Approximate), Expi res: 12/02/2025 Start: 05-25-2025 End: 05-25-2025 Patient encounter procedure 05/25/2025 11:30 AM EDT Appointment [facility] - Pulmonary Function [address] [place] [phone] [facility] - Pulmonary Function Start: 05-07-2025 End: 05-07-2025 ambulatory 05/07/2025 1:30 PM EDT Infusion Nieves L [facility] - Medical Oncology [facility] [place] [address] Nieves L [facility] Start: 04-01-2025 End: 04-01-2025 Patient encounter procedure 04/01/2025 3:15 PM EDT Office Visit [facility] [address] [place] [address] Rene Asif DO [address] [place] [address] Arrived [facility] Comment on above: Arrived Start: 03-26-2025 End: 03-26-2025 ambulatory 03/26/2025 1:30 PM EDT Infusion Nieves Miller [facility]cology [address] [place] [phone] Nievesjoyce Miller [facility] Start: 03-03-2025 End: 03-03-2025 Patient encounter procedure 03/03/2025 1:15 PM EDT Office Visit [facility] [address] [place] [phone] Rene Asif, [address] [place] [address] [facility] Start: 02-12-2025 End: 02-12-2025 ambulatory 02/12/2025 1:00 PM EDT Infusion Nieves Miller [facility] [address] [place] [phone] Nievesjoyce Miller [facility] Start: 12-02-2024 End: 12-02-2024 Patient encounter procedure 12/02/2024 1:40 PM EST Office Visit [address] [place] [phone] Heidi Kuhn MD [address] [facility] [address] [place] [address] [facility] Start: 11-17-2024 End: 11-17-2024 ambulatory 11/17/2024 12:30 PM EST Infusion Nieves Miller [facility] - [facility]cology [address] [place] [phone] Nieves L Paul [facility] Start: 10-06-2024 End: 10-06-2024 ambulatory 10/06/2024 12:30 PM EST Infusion Nievesjoyce Byrnesn [facility]cology [address] [place] [phone] [facility] Start: 08-25-2024 End: 08-25-2024 ambulatory 08/25/2024 2:30 PM EST Infusion Nieves L Paul [facility] [address] [place] [address] Nieves Miller [facility] Start: 07-18-2024 Tobacco Screening Tobacco Screening [facility] Start: 06-15-2024 COVID-19 Vaccine () COVID-19 Vaccine () [facility] Start: 06-15-2024 Covid-19 Vaccine () Covid-19 Vaccine () [facility] Start: 06-15-2024 COVID-19 Vaccine () COVID-19 Vaccine () [facility] Start: 06-15-2024 Influenza vaccination [facility] Start: 05-17-2024 Diabetes Screening Diabetes Screening [facility] Start: 04-05-2024 End: 03-05-2025 Complete Pulmonary Function Test (Spirometry/DLCO/Lung Volumes) Complete Pulmonary Function Test (Spirometry/DLCO/Lung Volumes) PFT Routine High risk medication use Expected: 04/05/2024 (Approximate), Expires: 03/05/2025 [facility] Work Phone: Comment on above: Expected: 04/05/2024 (Approximate), Expi res: 03/05/2025 Start: 03-05-2024 FUV, Provider: Ron Cadena, Status: Pen, Time: 1:40 PM FUV, Provider: Ron Cadena, Status: Dave, Time: 1:40 PM -[facility] 250 DO Work Phone: Start: 03-05-2024 End: 03-05-2025 Aspartate aminotransferase [Enzymatic activity/volume] in Serum or Plasma by With P-5'-P Aspartate Aminotransferase Lab Routine High risk medication use Expected: 03/05/2024 (Approximate), Expires: 03/05/2025 [facility] Service Area Work Phone: Comment on above: Expected: 03/05/2024 (Approximate), Expi res: 03/05/2025 Start: 03-05-2024 End: 03-05-2025 Basic metabolic 2000 panel - Serum or Plasma Basic Metabolic Panel Lab Routine High risk medication use Expected: 03/05/2024 (Approximate), Expires: 03/05/2025 [facility] Work Phone: Comment on above: Expected: 03/05/2024 (Approximate), Expi res: 03/05/2025 Start: 03-05-2024 End: 03-05-2025 Thyrotropin [Units/volume] in Serum or Plasma Thyroid Stimulating Hormone Lab Routine High risk medication use Expected: 03/05/2024 (Approximate), Expires: 03/05/2025 [facility] Work Phone: Comment on above: Expected: 03/05/2024 (Approximate), Expi res: 03/05/2025 Start: 11-28-2023 End: 11-28-2023 Patient encounter procedure 11/28/2023 2:45 PM EST Office Visit [facility] [address] [place] [address] Rene Asif DO [address] [place] [address] Arrived [facility] Comment on above: Arrived Start: 10-15-2023 Advance Directive Discussion Advance Directive Discussion [facility] Start: 09-20-2023 Medicare Annual Wellness Visit Medicare Annual Wellness Visit (AWV) [facility] Start: 06-15-2023 COVID-19 Vaccine ( season) COVID-19 Vaccine ( season) [facility] Start: 06-15-2023 COVID-19 Vaccine ( season) COVID-19 Vaccine ( season) [facility] Start: 06-15-2023 Influenza vaccination Influenza Vaccine (#1) [facility] Start: 04-30-2023 [facility] Start: 03-07-2023 FUV, Provider: Ron Cadena, Status: Pen, Time: 1:30 PM FUV, Provider: Ron Cadena, Status: Pen, Time: 1:30 PM -[facility] 250 DO Work Phone: Start: 02-22-2023 ECHO, Provider: MAKAYLA HHVI ULTRASOUND 01,[id number], Status: Pen, Time: 2:30 PM ECHO, Provider: MAKAYLA HHVI ULTRASOUND 01,[id number], Status: Pen, Time: 2:30 PM -[facility] 250 DO Work Phone: Start: 01-03-2023 FUV, Provider: Ron Cadena, Status: Pen, Time: 1:00 PM FUV, Provider: Ron Cadena, Status: Pen, Time: 1:00 PM -[facility] [address] DO Work Phone: Start: 10-15-2022 ADVANCE DIRECTIVE DISCUSSION ADVANCE DIRECTIVE DISCUSSION [facility] Start: 10-15-2022 DEPRESSION ASSESSMENT DEPRESSION ASSESSMENT [facility] Start: 10-10-2022 Carcinoembryonic Ag [Mass/volume] in Serum or Plasma [facility] Start: 10-10-2022 Comprehensive metabolic 2000 panel - Serum or Plasma [facility] Start: 10-10-2022 [facility] Start: 08-10-2022 End: 08-10-2022 [facility] Start: 05-16-2022 FUV, Provider: Ron Cadena, Status: Pen, Time: 11:00 AM FUV, Provider: Ron Cadena, Status: Pen, Time: 11:00 AM -[facility] [address] DO Work Phone: Start: 03-22-2022 FUV, Provider: Ron Cadena, Status: Pen, Time: 10:40 AM FUV, Provider: Ron Cadena, Status: Pen, Time: 10:40 AM -[facility] 600 DO Work Phone: Start: 04-07-2022 Dilation of Esophagus, Via Natural or Artificial Opening Endoscopic Dilation of Esophagus, Via Natural or Artificial Opening Endoscopic [facility] Start: 01-18-2022 [facility] Start: 12-07-2021 [facility] Start: 12-05-2021 [facility] Start: 09-26-2021 [facility] Start: 09-12-2021 [facility] Start: 09-05-2021 End: 09-05-2021 [facility] Start: 08-29-2021 [facility] Start: 08-22-2021 [facility] Start: 08-10-2021 FUV, Provider: Ron Cadena, Status: Pen, Time: 11:15 AM [facility] Work Phone: Start: 01-16-2021 DIABETES SCREEN DIABETES SCREEN [facility] Start: 05-10-2015 Administration of varicella zoster vaccine Zoster (Shingles) Vaccine (1 of 2) [facility] Start: 05-10-2015 Zoster Vaccines (1 of 2) Zoster Vaccines (1 of 2) [facility] Start: 2006 BONE DENSITY BONE DENSITY [facility] Start: 2006 Fall Risk Screening Fall Risk Screening [facility] Start: 2006 PNEUMOCOCCAL: 65+ (1 - PCV) PNEUMOCOCCAL: 65+ (1 - PCV) [facility] Start: 2006 Screening for osteoporosis Bone Density Screening [facility] Start: 2001 RSV patients and/or patients aged 60+ years (1 - 1-dose 60+ series) RSV patients and/or patients aged 60+ years (1 - 1-dose 60+ series) [facility] Start: 2001 RSV Vaccine (1 - 1-dose 60+ series) RSV Vaccine (1 - 1-dose 60+ series) [facility] Start: 1991 SHINGRIX VACCINE (1 of 2) SHINGRIX VACCINE (1 of 2) [facility] Start: 1960 Urine microalbumin profile DTAP,TDAP,TD (1 - Tdap) [facility] Start: 1959 Anxiety Screening Anxiety Screening [facility] Start: 1959 Depression Screening Depression Screening [facility] Start: 1959 Diabetes mellitus screening Diabetes Screening [facility] Start: 1953 Depression Screening Depression Screening [facility] Start: 1941 Lipid panel Lipid Panel [facility] Start: 1941 Medicare Annual Wellness Visit Medicare Annual Wellness Visit (AWV) [facility] Start: 1941 Screening for osteoporosis Bone Density Scan [facility] Start: 1941 Thyroid stimulating hormone measurement TSH Level [facility] Adrenocorticotropic hormone measurement [facility] Work Phone: Adrenocorticotropic hormone measurement [facility] Blood chemistry [facility] Carcinoembryonic Ag [Mass/volume] in Serum or Plasma [facility] Work Phone: Carcinoembryonic Ag [Mass/volume] in Serum or Plasma [facility] Carcinoembryonic Ag [Mass/volume] in Serum or Plasma [facility] Comprehensive metabo lic 2000 panel - Serum or Plasma [facility] Work Phone: Comprehensive metabo lic 2000 panel - Serum or Plasma [facility] Comprehensive metabo lic 1999 panel - Serum or Plasma [facility] Comprehensive metabo lic 1999 panel - Serum or Plasma [facility] Comprehensive metabo lic 1999 panel - Serum or Plasma [facility] Comprehensive metabo lic 1999 panel - Serum or Plasma [facility] Comprehensive metabo lic 1999 panel - Serum or Plasma [facility] Comprehensive metabo lic 1999 panel - Serum or Plasma Comprehensive metabolic panel Lab STAT 06/23/2024 1:50 PM EDT [facility] Work Phone: Comprehensive metabo lic 2000 panel - Serum or Plasma [facility] Creatinine and Glome rular filtration rate.predicted panel - Serum, Plasma or Blood [facility] Work Phone: CT Abdomen and Pelvi s W contrast IV [facility] Work Phone: CT Abdomen and Pelvi s W contrast IV [facility] CT Abdomen and Pelvi s W contrast IV [facility] CT Abdomen and Pelvi s W contrast IV [facility] CT Abdomen and Pelvi s W contrast IV [facility] CT Abdomen W contrast IV [facility] Work Phone: CT Abdomen W contrast IV [facility] CT Chest W contrast IV [facility] Work Phone: CT Chest W contrast IV [facility] CT Chest W contrast IV [facility] CT Chest W contrast IV [facility] CT Chest W contrast IV [facility] CT Chest W contrast IV [facility] CT Chest WO contrast [facility] CT Pelvis W contrast IV [facility] Work Phone: CT Pelvis W contrast IV [facility] ECG 12 Lead ECG 12 Lead ECG Routine Persistent atrial fibrillation (Multi) 03/24/2025 12:57 PM EDT [facility] Service Area Work Phone: Erythrocyte sediment ation rate by Photometric method [facility] Iron and Iron bindin g capacity panel - Serum or Plasma Iron and TIBC Lab STAT 06/23/2024 1:50 PM EDT [facility] Measurement of renal function [facility] Work Phone: MR Unspecified body region [facility] MR Unspecified body region [facility] End: 12-16-2023 Mri brain brain stem w/o w/contrast material MRI BRAIN WO/W IVCON Radiology Routine Diplopia 1 Occurrences starting 11/16/2022 until 12/16/2023 [facility] Work Phone: Comment on above: 1 Occurrences starting 11/16/2022 until 12/16/2023 Patient Education [facility] Work Phone: Patient referral [facility] Work Phone: Thyrotropin [Units/v olume] in Serum or Plasma [facility] Work Phone: Thyrotropin [Units/v olume] in Serum or Plasma [facility] Urea nitrogen [Mass/ volume] in Serum or Plasma [facility] Work Phone: Urine culture [place] [facility] Varicella zoster vir us DNA [Presence] in Cerebral spinal fluid by JACK with probe detection [facility] Work Phone: XR Chest 2 Views [facility] XR Thoracic spine 3 Views [facility] Immunizations Immunization Date Immunization Notes Care Provider Fa [facility] 08-06-2024 influenza, high dose seasonal, preservative-free DO [facility] Work Phone: [facility] 08-06-2024 influenza virus vaccine, unspecified formulation Pfo 1 [facility] 09-26-2023 Prevnar 20 Wong Espino Other [facility] 06-22-2023 influenza virus vaccine, unspecified formulation DO [facility] Work Phone: [facility] 06-22-2023 influenza, high dose seasonal, preservative-free oWng Espino Other [facility] [employer] [employer] Other 08-15-2022 Fluad Quadrivalent 0 .5 ML Intramuscular Prefilled Syringe Wong Espino Work Phone: [facility] 250 DO Work Phone: 08-15-2022 influenza virus vaccine, split virus (incl. purified surface antigen) Wong Espino Other [facility] Other 08-15-2022 influenza virus vaccine, unspecified formulation Rene Asif DO Work Phone: [facility] 11-14-2021 tetanus toxoid, redu ileana diphtheria toxoid, and acellular pertussis vaccine, adsorbed DO [employer] Work Phone: [facility] 07-20-2021 influenza, injectabl e, quadrivalent, preservative free Referring Provider Unknown [facility] 600 DO Work Phone: Comment on above: Series: 07-08-2021 influenza virus vaccine, split virus (incl. purified surface antigen) Wong Espino Other [facility] Other 07-08-2021 influenza virus vaccine, unspecified formulation DO [facility] Work Phone: [facility] 06-23-2021 Moderna COVID-19 Vaccine 100 MCG/0.5ML Intramuscular Suspension Referring Provider Unknown [facility] 06-13-2021 COVID-19 mRNA-1273 (Moderna) DO Wong Espino Work Phone: [facility] 01-10-2021 Moderna COVID-19 Vaccine 100 MCG/0.5ML Intramuscular Suspension Referring Provider Unknown [facility] 12-10-2020 Moderna COVID-19 Vaccine 100 MCG/0.5ML Intramuscular Suspension Referring Provider Unknown [facility] 11-22-2020 COVID-19 mRNA-1273 (Moderna) DO [employer] Work Phone: [facility] 10-25-2020 COVID-19 mRNA-1273 (Moderna) DO [employer] Work Phone: [facility] 09-08-2020 influenza virus vaccine, split virus (incl. purified surface antigen) Wong Espino Other [facility] Other 09-08-2020 influenza virus vaccine, unspecified formulation DO [facility] Work Phone: [facility] 09-08-2020 Seasonal trivalent influenza vaccine, adjuvanted, preservative free Referring Provider Unknown [facility] 600 DO Work Phone: 08-16-2020 influenza, high dose seasonal, preservative-free Referring Provider Unknown [facility] 600 DO Work Phone: 07-30-2019 influenza virus vaccine, split virus (incl. purified surface antigen) Wong Espino Other [facility] Other 07-30-2019 influenza virus vaccine, unspecified formulation DO [facility] Work Phone: [facility] 07-15-2019 influenza, high dose seasonal, preservative-free Referring Provider Unknown [facility] 600 DO Work Phone: 07-31-2018 influenza virus vaccine, split virus (incl. purified surface antigen) Wong Espino Other [facility] Other 07-31-2018 influenza virus vaccine, unspecified formulation DO [facility] Work Phone: [facility] 07-31-2018 Seasonal trivalent influenza vaccine, adjuvanted, preservative free Referring Provider Unknown [facility] 600 DO Work Phone: 07-15-2018 influenza virus vaccine, unspecified formulation Referring Provider Unknown [facility] 250 DO Work Phone: 10-15-2017 pneumococcal conjuga te vaccine, 13 valent Referring Provider Unknown [facility] 250 DO Work Phone: 07-23-2017 influenza, injectabl e, quadrivalent, preservative free Referring Provider Unknown [facility] 600 DO Work Phone: 06-21-2017 influenza virus vaccine, split virus (incl. purified surface antigen) Wong Espino Other [facility] [employer] [employer] Other 06-21-2017 influenza virus vaccine, unspecified formulation DO [facility] Work Phone: [facility] 06-21-2017 influenza, high dose seasonal, preservative-free Referring Provider Unknown [facility] 600 DO Work Phone: 10-24-2016 pneumococcal polysaccharide vaccine, 23 valent Referring Provider Unknown [facility] 600 DO Work Phone: Comment on above: Series: 07-17-2016 pneumococcal conjuga te vaccine, 13 valent Referring Provider Unknown [facility] 07-13-2016 influenza virus vaccine, split virus (incl. purified surface antigen) Wong Espino Other [facility] Other 07-13-2016 influenza virus vaccine, unspecified formulation DO [facility] Work Phone: [facility] 07-13-2016 influenza, high dose seasonal, preservative-free Referring Provider Unknown [place] [address] DO Work Phone: 03-15-2015 varicella virus vaccine Refe rring Provider Unknown [facility] 600 DO Work Phone: 03-15-2015 zoster vaccine, unspecified formulation Mouna Ma RN [facility] Payers Date Payer Category Payer Self-pay [id number] 2021 Medicaid [employer] MEDICARE A DVANTAGE [id number] 2021 Medicare [id number] 2021 Medicare (Managed Care) AET[employer] LDEN MEDICARE [id number] 2021 Medicare HMO [employer] MEDICARE [id number] 1959 Private Health Insurance [id number] 1941 Unknown [id number] 2.16840.1.674979.3.579.2. 647 1941 Unknown [id number] 2.16840.1.367074.3.579.2. 356 1941 Unknown [id number] 2.16.840.1.483762.3.579.2. 356 1941 Unknown [id number] 2.16840.1.744157.3.579.2. 593 1941 Unknown [id number] 2.16.840.1.628070.3.579.2. 593 1941 Unknown [id number] 2.16.840.1.670730.3.579.2. 593 1941 Unknown [id number] 2.16.840.1.774396.3.579.2. 593 1941 Unknown [id number] 2.16.840.1.207308.3.579.2. 1245 1941 Unknown [id number] 2.16840.1.474711.3.579.2. 727 1941 Unknown [id number] 2.16.840.1.950229.3.579.2. 727 1941 Unknown [id number] 2.16840.1.434451.3.579.2. 1244 1941 Unknown [id number] 2.840.1.668656.3.579.2. 1244 1941 Unknown [id number] 2.840.1.746267.3.579.2. 1259 1941 Unknown [id number] 2.16840.1.213574.3.579.2. 1259 1941 Unknown [id number] 2.840.1.539471.3.579.2. 1286 1941 Unknown [id number] 2.840.1.849897.3.579.2. 1286 1941 Unknown [id number] 2.16840.1.934656.3.579.2. 1286 1941 Unknown [id number] 2.16840.1.958293.3.579.2. 1286 1941 Unknown [id number] 2.16840.1.123454.3.579.2. 1286 1941 Unknown [id number] 2.16840.1.960061.3.579.2. 1286 1941 Unknown [id number] 2.16.840.1.663961.3.579.2. 1286 Private Health Insurance [id number] Unknown Unknown HCAP/HFA/FAP Active [id number] Unknown HCAP/HFA/FAP Active [id number] Unknown [id number] 2.16.840.1.227811.3.579.2. 531 Unknown [id number] 2.16.840.1.791582.3.579.2. 531 Social History Date Type Detail Facility Start: 11-25-2020 End: 05-22-2023 No illicit drug use No illicit drug use [facility] Comment on above: Coffee 2 cups daily; quit 1999; 2 cups coffee daily, occasional tea/soda; socially; Start: 11-29-2021 Tobacco smoking stat us [facility] Never smoked tobacco (finding) [facility] Start: 1940 Sex Assigned At Female F [facility] Start: 01-19-2022 End: 04-30-2023 Tobacco smoking status TNIS Ex-smoker (finding) [facility] End: 10-15-1999 History of tobacco use Current smoker [facility] Start: 05-16-2021 End: 11-16-2022 Tobacco use and exposure Smokeless tobacco non-user [facility] Start: 11-16-2022 End: 04-01-2025 Alcohol intake Current drinker of alcohol (finding) [facility] Start: 11-16-2022 Alcohol Comment rare [facility] Start: 1940 Sex Assigned At Not on file C [facility] Start: 11-25-2020 End: 05-22-2023 Sex Assigned At [facility] End: 10-15-1999 History of tobacco use Cigarette Smoker [facility] Start: 05-13-2023 Tobacco Comment Stopped smokin g age 15 years [facility] Start: 05-13-2023 Alcohol Comment caffeine: none [facility] Start: 11-30-2023 Alcohol Comment social [facility] Work Phone: Start: 02-24-2024 End: 03-24-2025 Exposure to SARS-CoV-2 (event) Not sure [facility] National Score (1-10 0), lower number is lower risk 61 [facility] Start: 07-24-2017 End: 01-27-2025 Sex Female (finding) [facility] Procedure Code Equipment Code Equipment Origin al Text Equipment Identifier Dates Insertion of central venous catheter (CVC) with subcutaneous port for chemotherapy Vascular port/catheter [id number] FDA Start: 10-13-2021 Insertion of central venous catheter (CVC) with subcutaneous port for chemotherapy Vascular port/catheter [id number] FDA Start: 06-27-2021 Insertion of central venous catheter (CVC) with subcutaneous port for chemotherapy Vascular port/catheter [id number] FDA Start: 08-10-2022 Blood Sugar Diagnostic (Onetouch Ultra Test) strip Start: 04-29-2024 Blood Sugar Diagnostic (Onetouch Ultra Test) strip Start: 04-29-2024 Blood Sugar Diagnostic (Onetouch Ultra Test) strip Start: 04-29-2024 Blood Sugar Diagnostic (Onetouch Ultra Test) strip Start: 04-29-2024 Blood Sugar Diagnostic (Onetouch Ultra Test) strip Start: 04-29-2024 Blood Sugar Diagnostic (Onetouch Ultra Test) strip Start: 04-29-2024 Blood Sugar Diagnostic (Onetouch Ultra Test) strip Start: 04-29-2024 Blood Sugar Diagnostic (Onetouch Ultra Test) strip Start: 04-29-2024 Blood Sugar Diagnostic (Onetouch Ultra Test) strip Start: 04-29-2024 Blood Sugar Diagnostic (Onetouch Ultra Test) strip Start: 04-29-2024 Blood Sugar Diagnostic (Onetouch Ultra Test) strip Start: 04-29-2024 Blood Sugar Diagnostic (Onetouch Ultra Test) strip Start: 04-29-2024 Blood Sugar Diagnostic (Onetouch Ultra Test) strip Start: 04-29-2024 Blood Sugar Diagnostic (Onetouch Ultra Test) strip Start: 04-29-2024 Blood Sugar Diagnostic (Onetouch Ultra Test) strip Start: 04-29-2024 Goals Date Patient Goal Desired Activity /State Personal health goal Comment on above: Formatting of this n ote might be different from the original. Evaluation of progress towards goal: Safe dc transition from hospital to home with family support. Functional Status Date Assessment Result Facility 05-16-2022 PHQ-9 [id number] Moder ately Severe (15-19) [facility] 600 DO Work Phone: 01-31-2022 Functional status Patient is Pro gressing [facility]ard [facility] Work Phone: 01-20-2022 Functional status Patient is Pro gressing [facility]ard [facility] Work Phone: Mental Status Date Assessment Result Facility 01-31-2022 Cognitive function Cognitive Sta tus Patient is Progressing [facility] Work Phone: 01-20-2022 Cognitive function Cognitive Sta tus Patient at [facility] Work Phone: Clinical Notes 06-09-2021 to 05-07-2025 Aguilar Bargg RN - 05/07/2025 1:30 PM Patrick Asif DO - 04/01/2025 3:15 PM Ziyad Sherwood RN - 03/24/2025 1:00 PM Alejandra Quarles RN - 02/12/2025 1:00 PM EDT Note Date & Type Note Facility 05-07-2025 History of Present illness Narrative Port flush complete per protocol. Next flush visit scheduled. Calendar given. documented in this encounter [facility] 04-01-2025 Note Right Eye Quality was good. Scan locations included subfoveal. Progression has been stable. Findings include abnormal foveal contour. Left Eye Quality was good. Scan locations included subfoveal. Progression has been stable. Findings include abnormal foveal contour, pigment epithelial detachment. Notes Macular volume loss OU [facility] 04-01-2025 History of Present illness Narrative Images from the original note were not included. Assessment/Plan Diagnoses and all orders for this visit: Intermediate stage nonexudative age-related macular degeneration of both eyes - ARMD OU, dry. Importance of smoking cessation, blood pressure control, and healthy diet were emphasized. Patient was advised to consider ultraviolet-B blocking sunglasses. In accordance with the AREDS study, appropriate antioxidant and mineral supplements were prescribed. Patient was instructed to self monitor their monocular vision (reading/Amsler Grid) at least weekly. Patient should immediately report any new onset of decreased vision or metamorphopsia. Diplopia - I believe this to be some MG mimicry. She states that this was the direction of investigation at [facility] however there was never the single fiber EMG test that was recommended. She does not follow a pattern of a cranial nerve (CN) palsy at all. Optic atrophy - Unclear source. I feel that this is a source of his vision decline. Perhaps related to his immuno therapy for her cancer. Dry eyes - Dry Eyes OU -- Environmental changes to minimize dryness and exposure and the use of artificial tears were recommended. documented in this encounter [facility] 03-24-2025 History of Present illness Narrative Patient here for EKG visit ordered by Dr. Kuhn due to amiodarone medication change. Patient is taking 100 [address] every other day[address] Dr. Kuhn in suite to review EKG prior to discharge. Medication list Updated verbally. Reports cardiac complaints of sob on exertion, chest pressure occasionally, and dizziness and lightheadedness. To Dr. Kuhn to read Vitals: 03/24/25 1320 BP: 124/72 BP Location: Right arm Patient Position: Sitting Pulse: 53 Weight: 88.9 kg (196 lb) Height: 1.676 m (5' 6 ) documented in this encounter [facility] Work Phone: 02-12-2025 History of Present illness Narrative Port flushed per protocol. 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 Patient tolerated well. [facility] History of Present illness Narrative* Heidi Kuhn MD - 12/02/2024 1:40 PM EST Anderson Valerio is a 84 y.o. female Chief Complaint Follow-up HPI Patient is here for follow-up continue management for persistent atrial fibrillation with long treatment with amiodarone. She is a former patient of Dr. Cadena. She has been on amiodarone since 2016. The patient reports limited exercise tolerance. She denies complaint of chest pain, lightheadedness, dizziness or syncope. She describe rare palpitation. She remained in normal sinus rhythm on amiodarone but she appears to be bradycardic. His amiodarone surveillance testing noted and reviewed withher. Assessment 1. Persistent atrial fibrillation maintaining normal sinus rhythm on amiodarone therapy 2. 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 High risk medication form of amiodarone amiodarone surveillance testing noted and reviewed with patient 4. History of breast and lung cancer followed by hematology oncology 5. Borderline abnormal CT scan of the chest followed by her oncologist 6. Obesity 7. Mild shortness of breath due to prior tobacco use 8. Essential hypertension 9. The patient elected not to be on anticoagulation due to prior history of GI bleed and has declined aspirin therapy Plan 1. I advised the patient to cut down her amiodarone to 100 mg 5 times weekly and continue to monitor her heart rate 2. Will rerepeat her amiodarone surveillance testing prior to next office visit 3. We discussed anticoagulation and aspirin the patient reluctant because of prior history of GI bleed Review of Systems Cardiovascular: Positive for irregular heartbeat. All other systems reviewed and are negative. Vitals: 12/02/24 1337 BP: 132/80 BP Location: Left arm Patient Position: Sitting Pulse: (!) 48 EKG done in office today Objective Physical Exam Constitutional: Appearance: Normal appearance. HENT: Nose: Nose normal. Neck: Vascular: No carotid bruit. Cardiovascular: Rate and Rhythm: Normal rate. Pulses: Normal pulses. Heart sounds: Normal heart sounds. Pulmonary: Effort: Pulmonary effort is normal. Abdominal: General: Bowel sounds are normal. Palpations: Abdomen is soft. Musculoskeletal: General: Normal range of motion. Cervical back: Normal range of motion. Right lower leg: No edema. Left lower leg: No edema. Skin: General: Skin is warm and dry. Neurological: General: No focal deficit present. Mental Status: She is alert. Psychiatric: Mood and Affect: Mood normal. Behavior: Behavior normal. Thought Content: Thought content normal. Judgment: Judgment normal. Allergies Erythromycin Current Medications Current Outpatient Medications: Advair Diskus 250-50 mcg/dose diskus inhaler, Inhale., Disp: , Rfl: busPIRone (Buspar) 7.5 mg tablet, Take 1 tablet (7.5 mg) by mouth 2 times a day., Disp: , Rfl: calcium citrate-vitamin D3 (Citracal+D) 315 mg-5 mcg (200 unit) tablet, Take 2 tablets by mouth once daily., Disp: , Rfl: evening primrose oil 500 mg, Take 1 capsule (500 mg) by mouth 2 times a day., Disp: , Rfl: levothyroxine (Synthroid, Levoxyl) 112 mcg tablet, Take 1 tablet (112 mcg) by mouth. Sunday, Disp: , Rfl: levothyroxine (Synthroid, Levoxyl) 125 mcg tablet, Take 1 tablet (125 mcg) by mouth. Sunday, Disp: , Rfl: LORazepam (Ativan) 0.5 mg tablet, Take 1 tablet (0.5 mg) by mouth if needed. 1- 2, Disp: , Rfl: spironolactone (Aldactone) 25 mg tablet, Take 1 tablet (25 mg) by mouth once daily., Disp: 90 tablet, Rfl: 3 vit C/E/Zn/coppr/lutein/zeaxan (PRESERVISION AREDS-2 ORAL), Take 2 tablets by mouth once daily., Disp: , Rfl: amiodarone (Pacerone) 100 mg tablet, Take 1 tablet (100 mg) by mouth 5 times a week., Disp: 60 tablet, Rfl: 3 Assessment/Plan 1. Persistent atrial fibrillation (Multi) amiodarone (Pacerone) 100 mg tablet ECG 12 Lead 2. Paroxysmal atrial fibrillation (Multi) Follow Up In Cardiology 3. High risk medication use Aspartate Aminotransferase Basic Metabolic Panel Thyroid Stimulating Hormone XR chest 2 views Complete Pulmonary Function Test (Spirometry/DLCO/Lung Volumes) Aspartate Aminotransferase Basic Metabolic Panel Thyroid Stimulating Hormone 4. Essential hypertension Follow Up In Cardiology 5. SOB (shortness of breath) on exertion 6. Former smoker 7. Chronic obstructive pulmonary disease, unspecified COPD type (Multi) Scribe Attestation By signing my name below, IShi LPN, Scribe attest that this documentation has been prepared under the direction and in the presence of MD Frandy. Provider Attestation - Scribe documentation All medical record entries made by the Scribe were at my direction and personally dictated by me. Cynthia reviewed the chart and agree that the record accurately reflects my personal performance of the history, physical exam, discussion and plan. documented in this [facility] Work Phone: 1(700) 104-890202-18-2025 Instructions* Patient Instructions* Shi Bae LPN - 12/02/2024 1:40 PM EST Please bring all medicines, vitamins, and herbal supplements with you when you come to the office. Prescriptions will not be filled unless you are compliant with your follow up appointments or have a follow up appointment scheduled as per instruction of your physician. Refills should be requested at the time of your visit. Medical reason BMI was not measured. Amiodarone follow up per routine * Attachments The following attachments cannot be sent through Care Everywhere. * Heart Healthy Diet (German) documented in this [facility] Work Phone: 1(615) 618-528512-16-2024 Evaluation note* Diagnosis Onset Date Resolution Status Admit Date Atrial fibrillation acute Decem ravin 2023 2:18pm Chronic bronchitis acute Decemb er 2023 2:18pm Chronic kidney disease acute De cember 2023 2:18pm Essential hypertension acute De cember 2023 2:18pm SKYLAR (generalized anxiety disorder) acute September 29, 2 024 2:18pm History of breast cancer acute September 29, 2024 2:18pm Hypothyroid acute September 2:18pm Medicare annual wellness vis it, subsequent acute September 29, 2 024 2:18pm Type 2 diabetes mellitus wit h hyperglycemia acute September 29 024 2:18pm [facility] Work Phone: 1(263) 137-996108-20-2024 NoteRight Eye Quality was good. Scan locations included subfoveal. Progression has been stable. Findings include abnormal foveal contour, pigment epithelial detachment. Left Eye Quality was good. Scan locations included subfoveal. Progression has been stable. Findings include abnormal foveal contour.[facility] [id number] History of Present illness Narrative* Rene Asif DO - 06/03/2024 2:30 PM EDT Images from the original note were not included. Assessment/Plan Diagnoses and all orders for this visit: Intermediate stage nonexudative age-related macular degeneration of both eyes - ARMD OU, dry. Importance of smoking cessation, blood pressure control, and healthy diet were emphasized. Patient was advised to consider ultraviolet-B blocking sunglasses. In accordance with the AREDS study, appropriate antioxidant and mineral supplements were prescribed. Patient was instructed to self monitor their monocular vision (reading/Amsler Grid) at least weekly. Patient should immediately report any new onset of decreased vision or metamorphopsia. Diplopia - I believe this to be some MG mimicry. She states that this was the direction of investigation at [facility] however there was never the single fiber EMG test that was recommended. She does not followa pattern of a cranial nerve (CN) palsy at all. Optic atrophy - Unclear source. I feel that this is a source of his vision decline. Perhaps related to his immunotherapy for her cancer. Dry eyes - Dry Eyes OU -- Environmental changes to minimize dryness and exposure and the use of artificial tears were recommended. [id number] History of Present illness Narrative* Ron Cadena MD - 03/05/2024 1:40 PM EDT Anderson Valerio is a 83 y.o. female Chief Complaint Annual Exam HPI Review of Systems All other systems reviewed and are negative. Patient returns in follow-up of problems as noted. She has done well. She denies arrhythmia symptomatology. Sinus rhythm appears to be effectively maintained with low-dose amiodarone. Surveillance for side effects including x-ray lab and PFT is satisfactory demonstrating no complications of therapy. Treatment of her hypertension is also reviewed and felt to be adequate and appropriate because of this no adjustments in therapy are needed or recommended. We did advocate the merits of diet and weight loss but otherwise suggest continue therapy as before Vitals: 05/22/24 1400 BP: 138/72 BP Location: Right arm Patient Position: Sitting Pulse: 51 Weight: 86.4 kg (190 lb 6.4 oz) Height: 1.676 m (5' 6 ) EKG done in office today Objective Physical Exam Constitutional: Appearance: Normal appearance. HENT: Nose: Nose normal. Neck: Vascular: No carotid bruit. Cardiovascular: Rate and Rhythm: Normal rate. Pulses: Normal pulses. Heart sounds: Normal heart sounds. Pulmonary: Effort: Pulmonary effort is normal. Abdominal: General: Bowel sounds are normal. Palpations: Abdomen is soft. Musculoskeletal: General: Normal range of motion. Cervical back: Normal range of motion. Right lower leg: No edema. Left lower leg: No edema. Skin: General: Skin is warm and dry. Neurological: General: No focal deficit present. Mental Status: She is alert. Psychiatric: Mood and Affect: Mood normal. Behavior: Behavior normal. Thought Content: Thought content normal. Judgment: Judgment normal. Allergies Erythromycin Current Medications Current Outpatient Medications: Advair Diskus 250-50 mcg/dose diskus inhaler, Inhale., Disp: , Rfl: amiodarone (Pacerone) 100 mg tablet, Take 1 tablet (100 mg) by mouth once daily., Disp: 90 tablet, Rfl: 3 busPIRone (Buspar) 7.5 mg tablet, Take 1 tablet (7.5 mg) by mouth 2 times a day., Disp: , Rfl: calcium citrate-vitamin D3 (Citracal+D) 315 mg-5 mcg (200 unit) tablet, Take 2 tablets by mouth once daily., Disp: , Rfl: gabapentin (Neurontin) 100 mg capsule, Take 1 capsule (100 mg) by mouth once daily., Disp: , Rfl: levothyroxine (Synthroid, Levoxyl) 112 mcg tablet, Take 1 tablet (112 mcg) by mouth. Sunday, Disp: , Rfl: levothyroxine (Synthroid, Levoxyl) 125 mcg tablet, Take 1 tablet (125 mcg) by mouth. Sunday, Disp: , Rfl: LORazepam (Ativan) 0.5 mg tablet, Take 1 tablet (0.5 mg) by mouth if needed. 1- 2, Disp: , Rfl: spironolactone (Aldactone) 25 mg tablet, Take 1 tablet (25 mg) by mouth 1 time., Disp: , Rfl: vit C/E/Zn/coppr/lutein/zeaxan (PRESERVISION AREDS-2 ORAL), Take 2 tablets by mouth once daily., Disp: , Rfl: Assessment/Plan 1. Paroxysmal atrial fibrillation (Multi) Atrial fibrillation eliminated with amiodarone. Sinus rhythm maintained. Satisfactory screening forside effects. - Follow Up In Cardiology; Future - ECG 12 Lead 2. Essential hypertension, benign Review of treatment strategy demonstrates acceptable control 3. High risk medication use No apparent side effects based upon screening labs x-ray and PFTs. Continue same. - Aspartate Aminotransferase; Future - Basic Metabolic Panel; Future - Thyroid Stimulating Hormone; Future - XR chest 2 views; Future - Complete Pulmonary Function Test (Spirometry/DLCO/Lung Volumes); Future - Aspartate Aminotransferase - Basic Metabolic Panel - Thyroid Stimulating Hormone Amiodarone follow up per routine Scribe Attestation By signing my name below, ITonya LPN , Scribe attest that this documentation has been prepared under the direction and in the presence of Audra Cadena MD. Provider Attestation - Scribe documentation All medical record entries made by the Scribe were at my direction and personally dictated by me. Ihave reviewed the chart and agree that the record accurately reflects my personal performance of the history, physical exam, discussion and plan. documented in [facility] Work Phone: [phone]) 235-269605-22-2024 Instructions* Patient Instructions* Deshaun Ny MA - 03/05/2024 1:40 PM EDT Please bring all medicines, vitamins, and herbal supplements with you when you come to the office. Prescriptions will not be filled unless you are compliant with your follow up appointments or have a follow up appointment scheduled as per instruction of your physician. Refills should be requested at the time of your visit. documented in this encounterMem[facility] Work Phone: [phone]) 130-246801-17-2024 Evaluation note* Encounter Date Diagnosis Assessment Notes Treatment Notes Treatment Clinical Notes Oct, Pernicious anemia (ICD-10 - D51.0) [facility] Other 12-20-2023 Evaluation note* Encounter Date Diagnosis Assessment Notes Treatment Notes Treatment Clinical Notes Sep, Chronic cough (ICD-10 - R05.3) [facility] Other 12-13-2023 Evaluation note* Encounter Date Diagnosis Assessment Notes Treatment Notes Treatment Clinical Notes Sep, Medicare annual wellness visit, subsequent (ICD-10 - Z00.00) Personalized health advice was given to the beneficiary including a written plan for screenings discussed and provided. Advanced care planning reviewed and/or information given as requested. Additional counseling was provided here today in regards to, [ ]. The above visit was performed by [ ], under direct supervision of [ ]. Document reviewed and amended by provider signed below. Sep, Mucopurulent chronic bronchitis (ICD-10 - J41.1) Push fluids, use mucolytics as needed. Cough and deep breathing exercises. Continue LABA/ICS and JAQUAN as needed Sep, Stage 4 chronic kidney disease (ICD-10 - N18.4) The patient is instructed on adequate control of hypertension and diabetes, if appropriate. They are also educated on the associated risks of NSAIDs and PPI use with kidney disease. They were instructed on adequate fluid balance and to avoid dehydration. Sep, Controlled type 2 diabetes mellitus with hyperglycemia, without long-term current use of insulin (ICD-10 - E11.65) This patient is following a comprehensive diabetic treatment plan. They are checking their feet daily for calluses and nonhealing ulcers. They are being seen for yearly dilated eye examinations. Goals: SBP less than 130, LDL less than 100, FBS less than 140, A1C less than 7%. They are checking their BS daily, will which are reviewed at the office visit. Continue regular routine monitoring of A1C,] Microalbumin, Dilated eye exam and Foot exam Sep, Autoimmune thyroiditis (ICD-10 - E06.3) Clinically hypothyroid but euthyroid by TSH. No change in medications Sep, Other specified hypothyroidism (ICD-10 - E03.8) Sep, SKYLAR (generalized anxiety disorder) (ICD-10 - F41.1) Sep, Paroxysmal atrial fibrillation (ICD-10 - I48.0) This patient is in NSR or rate controlled. This patient is not anticoagulated to prevent thromboembolic events due to lifethreatening bleeding. 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 Sep, Pernicious anemia (ICD-10 - D51.0) Continue B12 replacement. Sep, Screening mammogram for breast cancer (ICD-10 - Z12.31) Instructed patient on monthly SBE and yearly mammograms. [facility] Other 11-09-2023 Evaluation note* Encounter Date Diagnosis Assessment Notes Treatment Notes Treatment Clinical Notes Aug, Pernicious anemia (ICD-10 - D51.0) [facility] Other 10-05-2023 Evaluation note* Encounter Date Diagnosis Assessment Notes Treatment Notes Treatment Clinical Notes Jul, Stage 4 chronic kidney disease (ICD-10 - N18.4) The patient is instructed on adequate control of hypertension and diabetes, if appropriate. They are also educated on the associated risks of NSAIDs and PPI use with kidney disease. They were instructed on adequate fluid balance and to avoid dehydration. Jul, Controlled type 2 diabetes mellitus with hyperglycemia, without long-term current use of insulin (ICD-10 - E11.65) This patient is following a comprehensive diabetic treatment plan. They are checking their feet daily for calluses and nonhealing ulcers. They are being seen for yearly dilated eye examinations. Goals: SBP less than 130, LDL less than 100, FBS less than 140, A1C less than 7%. Jul, Muscle strain of right lower leg, initial encounter (ICD-10 - S86.911A) Mechanism of injury indicates likely soft tissue rather than joint related condition. Unable to use NSAIDs due to comorbidities and hx of GIB. ROM/stretching exercises, ice/heat and topical crms Jul, Pernicious anemia (ICD-10 - D51.0) Continue B12 supplements Jul, Other specified hypothyroidism (ICD-10 - E03.8) Jul, Autoimmune thyroiditis (ICD-10 - E06.3) Clinically hypothyroid, recheck TSH Amiodarone increases risk for thyroid disease. Jul, Fatigue, unspecified type (ICD-10 - R53.83) Nonspecific, recommend healthy diet, keep active. [facility] Other 09-08-2023 Evaluation note* Encounter Date Diagnosis Assessment Notes Treatment Notes Treatment Clinical Notes Jun, Pernicious anemia (ICD-10 - D51.0) [facility] Other 08-09-2023 Evaluation note* Encounter Date Diagnosis Assessment Notes Treatment Notes Treatment Clinical Notes May, Mild episode of recurrent major depressive disorder (ICD-10 - F33.0) May, Pernicious anemia (ICD-10 - D51.0) [facility] Other 06-30-2023 Evaluation note* Encounter Date Diagnosis Assessment Notes Treatment Notes Treatment Clinical Notes Mar, Pernicious anemia (ICD-10 - D51.0) [facility] Other 06-06-2023 Evaluation note* Encounter Date Diagnosis Assessment Notes Treatment Notes Treatment Clinical Notes Mar, Primary hypertension (ICD-10 - I10) This patient is instructed to consume a healthy, low-fat, low-salt diet. They are also encouraged to continue exercise to achieve/maintain a normal BMI. Mar, Stage 4 chronic kidney disease (ICD-10 - N18.4) The patient is instructed on adequate control of hypertension and diabetes, if appropriate. They are also educated on the associated risks of NSAIDs and PPI use with kidney disease. They were instructed on adequate fluid balance and to avoid dehydration. Mar, Paroxysmal atrial fibrillation (ICD-10 - I48.0) This patient is in NSR or rate controlled. This patient is not anticoagulated to prevent thromboembolic events due to life threatening bleeding. 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 Mar, Mucopurulent chronic bronchitis (ICD-10 - J41.1) Mucinex as needed. Push fluids LABA/ICS bid w/ JAQUAN as needed Mar, Controlled type 2 diabetes mellitus with hyperglycemia, without long-term current use of insulin (ICD-10 - E11.65) Diet controlled, eye/foot care reviewed. A1C every year. This patient is following a comprehensive diabetic treatment plan. They are checking their feet daily for calluses and nonhealing ulcers. They are being seen for yearly dilated eye examinations. Goals: SBP less than 130, LDL less than 100, FBS less than 140, AC and A1C less than 7%. Mar, SKYLAR (generalized anxiety disorder) (ICD-10 - F41.1) Healthy diet, keep active and no changes w/ medical therapy Mar, Chronic venous insufficiency (ICD-10 - I87.2) Avoid salt and elevate lower extremities, support stockings, inspect legs and feet daily for blisters and ulcerations. Mar, Primary malignant neoplasm of right lung metastatic to other site (ICD-10 - C34.91) No s/s recurrence Restage later this summerMar, History of breast cancer (ICD-10 - Z85.3) No s/s recurrence Continue yearly mammogram [facility] Other 05-11-2023 Evaluation note* Encounter Date Diagnosis Assessment Notes Treatment Notes Treatment Clinical Notes February, Pernicious anemia (ICD-10 - D51.0) [facility] Other 04-04-2023 Evaluation note* Encounter Date Diagnosis Assessment Notes Treatment Notes Treatment Clinical Notes Jan, Dyspnea on exertion (ICD-10 - R06.09) [facility] Other 03-23-2023 Evaluation note* Encounter Date Diagnosis Assessment Notes Treatment Notes Treatment Clinical Notes Dec, Dyspnea on exertion (ICD-10 - R06.09) [facility] Other 03-22-2023 Evaluation note* Encounter Date Diagnosis Assessment Notes Treatment Notes Treatment Clinical Notes Dec, Pernicious anemia (ICD-10 - D51.0) [facility] Other 02-27-2023 NoteHNO ID: [id number] Author: Jaison Mars, DO Service: ? Author Type: Physician Type: Progress Notes Filed: 12/11/2022 8:50 AM Note Text: IMPRESSION: No acute brain findings. No evidence for an infiltrative process at the skull base. No gross abnormalities of either cavernous sinus and no focal brainstem lesions. Moderate generalized brain volume loss. 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 No abnormal brain parenchymal or meningeal enhancement on this exam. 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 Industrial Refrigeration Mechanic: LAMAR Transcribe Date/Time: Dec 09 2022 3:13P Dictated by : FELIPE PERKINS MD Given the normal MRI [facility] Miscellaneous Notes* Telephone Encounter - Jaison Mars DO - 12/11/2022 8:50 AM EST IMPRESSION: No acute brain findings. No evidence for an infiltrative process at the skull base. No gross abnormalities of either cavernous sinus and no focal brainstem lesions. Moderate generalized brain volume loss. 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 No abnormal brain parenchymal or meningeal enhancement on this exam. 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 Industrial Refrigeration Mechanic: LAMAR Transcribe Date/Time: Dec 09 2022 3:13P Dictated by : FELIPE PERKINS MD Given the normal MRI will proceed with sfEMG documented in this encounterAden[facility]02-25-[facility]23 NoteHNO ID: [id number] Author: Isa Carcamo RN Service: Radiology Author Type: Registered Nurse Type: Progress Notes Filed: 12/09/2022 2:06 PM Note Text: Radiology Service Progress Note DATE OF SERVICE: December 09, 2022 TIME: 1:50 PM PATIENT WEIGHT: 220 LBS PATIENT IDENTITY VERIFICATION COMPLETED USING TWO (2) STANDARD IDENTIFIERS: Name and Date of confirmed by patient verbally. FALL SCREENING: Has the patient had 2 falls in the last year or 1 fall with injury or currently using an Ambulatory Assistive Device (Walker, Cane, Wheelchair, Crutches, etc.)? Yes, Patient High Risk for Falls What interventions were put in place to prevent falls during this visit? Non-Skid Socks Used, Instructed Patient to Call for Help if Needed, Offered Assistance with Transfers/Clothing, Instructed Patient to Remain Seated (Not on Exam Table) Until Exam, and Increased Observations by Caregivers PATIENT GENDER DATA: Female. status: : No status: NO. ALLERGIES: Reviewed and unchanged CONTRAST ALLERGY: No EXAM: MRI - CONTRAST TYPE: GROUP II IV SITE: Ambulatory: A power injectable Mediport was accessed in the Right chest with a 1 inch 20 gauge needle. Blood Return, Flushed easily with normal saline, Good Blood Return Post Injection, Flushed with 20 cc saline followed by Heparin 500 units/5 cc, Needle Removed, and No Complications IV SITE APPEARANCE: Clean,Dry and Intact SIGNATURE: Isa Carcamo RN PATIENT NAME: Melida Valerio DATE: December 09, 2022 TIME: 1:50 [facility]02-25-2023 NoteHNO ID: [id number] Author: Navya Carlson berry grower Service: ? Author Type: Dependency Program Director Type: Progress Notes Filed: 12/09/2022 2:52 PM Note Text: Radiology Service Progress Note PATIENT NAME: Melida Valerio DATE OF SERVICE: December 09, 2022 TIME: 1:53 PM PATIENT IDENTITY VERIFICATION COMPLETED USING TWO (2) IDENTIFIERS: Name and Date of confirmed by patient verbally. FALL SCREENING: Has the patient had 2 falls in the last year or 1 fall with injury or currently using an Ambulatory Assistive Device (Walker, Cane, Wheelchair, Crutches, etc.)? Yes, Patient High Risk for Falls What interventions were put in place to prevent falls during this visit? Instructed Patient to Call for Help if Needed, Offered Assistance with Transfers/Clothing, Instructed Patient to Remain Seated (Not on Exam Table) Until Exam, and Increased Observations by Caregivers PATIENT GENDER DATA: Female. status: : No status: NO. PATIENT RELEVANT IMPLANT DATA REVIEWED: Yes RADIOLOGY DEPARTMENT: MR; Exam(s) Completed: Head: Cranial Nerve, Upper PERIPHERAL IV DATA: Site assessment: Clean,Dry and Intact, Site disposition Discontinued SIGNED BY: Navya CARLSON RT, berry grower December 09, 2022 1:53 [facility]02-25-2023 History of Present illness Narrative* Isa Carcamo RN - 12/09/2022 1:40 PM EST Radiology Service Progress Note DATE OF SERVICE: December 09, 2022 TIME: 1:50 PM PATIENT WEIGHT: 220 LBS PATIENT IDENTITY VERIFICATION COMPLETED USING TWO (2) STANDARD IDENTIFIERS: Name and Date of confirmed by patient verbally. FALL SCREENING: Has the patient had 2 falls in the last year or 1 fall with injury or currently using an Ambulatory Assistive Device (Walker, Cane, Wheelchair, Crutches, etc.)? Yes, Patient High Riskfor Falls What interventions were put in place to prevent falls during this visit? Non- Skid Socks Used, Instructed Patient to Call for Help if Needed, Offered Assistance with Transfers/Clothing, Instructed Patient to Remain Seated (Not on Exam Table) Until Exam, and Increased Observations by Caregivers PATIENT GENDER DATA: Female. status: : No status: NO. ALLERGIES: Reviewed and unchanged CONTRAST ALLERGY: No EXAM: MRI - CONTRAST TYPE: GROUP II IV SITE: Ambulatory: A power injectable Mediport was accessed in the Right chest with a 1 inch 20 gauge needle. Blood Return, Flushed easily with normal saline, Good Blood Return Post Injection, Flushed with 20 cc saline followed by Heparin 500 units/5 cc, Needle Removed, and No Complications IV SITE APPEARANCE: Clean,Dry and Intact SIGNATURE: Isa Carcamo RN PATIENT NAME: Melida Valerio DATE: December 09, 2022 TIME: 1:50 PM * Navya Carlson MRI Tech - 12/09/2022 1:40 PM EST Radiology Service Progress Note PATIENT NAME: Melida Valerio DATE OF SERVICE: December 09, 2022 TIME: 1:53 PM PATIENT IDENTITY VERIFICATION COMPLETED USING TWO (2) IDENTIFIERS: Name and Date of confirmedby patient verbally. FALL SCREENING: Has the patient had 2 falls in the last year or 1 fall with injury or currently using an Ambulatory Assistive Device (Walker, Cane, Wheelchair, Crutches, etc.)? Yes, Patient High Riskfor Falls What interventions were put in place to prevent falls during this visit? Instructed Patient to Callfor Help if Needed, Offered Assistance with Transfers/Clothing, Instructed Patient to Remain Seated(Not on Exam Table) Until Exam, and Increased Observations by Caregivers PATIENT GENDER DATA: Female. status: : No status: NO. PATIENT RELEVANT IMPLANT DATA REVIEWED: Yes RADIOLOGY DEPARTMENT: MR; Exam(s) Completed: Head: Cranial Nerve, Upper PERIPHERAL IV DATA: Site assessment: Clean,Dry and Intact, Site disposition Discontinued SIGNED BY: Navya BETH, berry grower December 09, 2022 1:53 PM documented in this encounterAdena [facility]02-25-2023 Miscellaneous Notes* Addendum Note - Isa Carcamo RN - 12/09/2022 1:40 PM ESTEncounter addended by: Isa Carcamo RN on: 12/09/2022 3:20 PM Actions taken: Medication note saved documented in this encounterAdena [facility]02-25-2023 Note* Addendum Note - Isa Carcamo RN - 12/09/2022 1:40 PM ESTEncounter addended by: Isa Carcamo RN on: 12/09/2022 3:20 PM Actions taken: Medication note saved [facility]02-14-20[facility] Evaluation note* Encounter Date Diagnosis Assessment Notes Treatment Notes Treatment Clinical Notes Nov, Pernicious anemia (ICD-10 - D51.0) [facility] Other 02-02-2023 NoteHNO ID: [id number] Author: Jaison Mars, DO Service: ? Author Type: Physician Type: Progress Notes Filed: 11/17/2022 8:24 AM Note Text: Diplopia (primary encounter diagnosis) She appears to have a superior division left 3rd and a Michelle's that localizes to the left CS. Get MRI with [facility]. She got two does of Durvalumab starting last October, but stopped due to generalized weakness, swallowing difficulties and diplopia. She certainly could have had check point induced MG, but apparently a blood test was negative. She did not have an EMG nor did she have a sfEMG, and she might need that test if the MRI is negative for mets. I have confirmed and edited as necessary the relevant ophthalmic history, ROS, and the neuro exam findings as obtained by others. I have seen and examined this patient. I have discussed the case and the management of this patient's care with the Resident/Fellow, if applicable. I also have reviewed and agree with the assessment and plan as stated above and agree with all of its relevant components. Jaison Mars DO November 16, 2022 1:31 [facility] 11-16-2022 History of Present illness Narrative* Jaison Mars DO - 11/16/2022 1:30 PM EST Diplopia (primary encounter diagnosis) She appears to have a superior division left 3rd and a Michelle's that localizes to the left CS. Get MRI with [facility]. She got two does of Durvalumab starting last October, but stopped due to generalized weakness, swallowing difficulties and diplopia. She certainly could have had check point induced MG, but apparently a blood test was negative. She did not have an EMG nor did she have a sfEMG, and she might need that test if the MRI is negative for mets. I have confirmed and edited as necessary the relevant ophthalmic history, ROS, and the neuro exam findings as obtained by others. I have seen and examined this patient. I have discussed the case and the management of this patient's care with the Resident/Fellow, if applicable. I also have reviewed and agree with the assessment and plan as stated above and agree withall of its relevant components. Jaison Mars DO November 16, 2022 1:31 PM documented in this encounterAdena [facility] Center01-16-2023 Progress note Author Bertha Christianson [facility] October 30, 2022 10:21am Note Date/Time October 30, 2022 1 0:10am [facility] at [address] [address] Hem/Onc Follow Up Note - OP Signed Patient: Melida Valerio MR#: [id number] : 1940 Acct:[id number] Age/Sex: 82 / F Type: REG RCR Copies to: DO Hiral Teague DO~ Date of Service: 10/30/2022 Time of Service: 10:02 - Assessment & Plan (1) 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 Plan: 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 Stage IIB negative EBUS, negative adrenal nodule biopsy Completed concurrent chemoradiation for her cancer carboplatin and paclitaxel jul through sep 2021. followed by maintenance durvalumab. Started maintenance durvalumab (received 2 doses - 2 weeks apart) 10 mg/kg dosing- given 10/26/2021 and 11/09/2021. PET/CT 11/2021 [facility]. -- therapy changed to monthly dosing (Q 4 weeks - 1500 mg) - received 1 dose on: 12/07/2021 [facility] - durvalumab was stopped early due to concern for immunotherapy related neurologic toxicity. 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 Brain MRI was essentially negative; with no evidence of intracranial metastasis or other acute changes. She had hospitalization for this including prolonged stay in the TCU. Ultimately she is discharged home and is getting stronger maintains prednisone 40 mg p.o. daily as of 02/24/2022. 10mg daily as of 05/08/22 drop to 5mg as of 06/09/22 no prednisone after about july 2022. She also has a history of severe and recurrent C. difficile infection. history breast cancer in 2009. Follow Up Instructions: f/u after scan ct c/a/p in 6 months. cbc, cmp, esr, prior to f/u. cont port flushes. print her neuro antibody panel and give her copy. print her note and give her a copy. - History of Present Illness Chief Complaint: Patient is here for a 4 month follow up with labs and imaging for review. No concerns voiced at this time. HPI: 81-year-old female referred from Dr. Mccarty whom I previously followed at [facility] for breast cancer. Past medical history includes hypertension, chronic venous insufficiency, gastroesophageal reflux disease, type 2 diabetes, quit smoking in 1999, pernicious anemia, hypothyroidism, iron deficiency anemia, paroxysmal atrial fibrillation, hyperlipidemia, chronic bronchitis.. She had a hysterectomy and nephrectomy in her 20s for endometriosis. Outpatient medications include ProAir, levothyroxine, hydrochlorothiazide, amlodipine, montelukast, amiodarone. DEXA scan from 2018 shows osteopenia in the hip and normal in the spine echocardiogram from May 2019 shows ejection fraction of greater than 55%, no significant wall motion abnormalities and mild diastolic dysfunction. Slightly elevated right-sided pressures. No significant valvular abnormalities. She does have a sister with breast cancer in her 40s, mother sister had breast cancer in her 70s, mother's other sister had breast cancer in her 70s, mother had breast cancer in her 50s. Melida has 2 adopted children. She was diagnosed with ER/WA positive HER-2 negative breast cancer in 2009 at a hospital in [place]. She got adjuvant radiotherapy following lumpectomy. She did not get chemotherapy and refused adjuvant tamoxifen and has been monitored since. CAT scan of the chest from January 2017 showed no evidence of disease. She followed up with mammograms regularly and they were all normal. She had some short of breath since December 2020. In late April she noted a slight right upper quadrant pain. Worse with deep breathing. She went to ER on 05/16/21. She had XR with R sided consolidation. and A CT of the abdomen and pelvis from May 16, 2021 with IV contrast shows normallung bases, normal liver, pancreas, gallbladder, spleen. Left adrenal 2 cm nodule, normal kidneys, bladder, bowel, peritoneum. No enlarged lymph nodes. No abnormalities in the bones. She was admitted to the hospital and had CT chest next day which noted a large mass. Some dry irritating cough. She was discharged and f/u with dr. mccarty. She had a bronchoscopy on 05/30/[address] Mccarty. Found an endobronchial mass in the lateral segment of the right middle lobe. 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 Negative for TTF-1 and positive for P 40. She had pulmonary function studies in December 2020 with an FEV1 of 1.95 L in the right middle lobe only comprises 11% of the total lung capacity. She has not yet had PET/CT. had EBUS Dr. JOHNSON. Nodes all negative adrenal biopsy negative. PET/CT with disease localized, few nodes curious. 10/17/2021: Patient reports for post treatment follow up visit. 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 Towards the end of treatment she was diagnosed with C diff colitis treated first with oral Vancomycin and then Flagyl. Clinically, she is much improved. No further episodes of diarrhea. She appears non toxic. She is approximately 1 month out from treatment; she reports no significant or new issues other than dry, sometimes productive cough. Worse during the day; denies shortness of breath, sputum production, dysphagia, fever/chills, or hemoptysis. Plan to initiate maintenance Durvalumab as soon as insurance approves. She will need post treatment scan, as well. Will arrange for PET/CT scan in ~ 5 weeks with follow up thereafter. 11/09/21 she is feeling much better today, has not had diarrhea in 2 days. almost feels like she may be getting constipated she admits to not staying hydrated today and yesterday, so we encouraged her to push more fluids, which may help with her bowels as well she denies any other complaints, tolerating the fidaxomycin well energy is much improved and she is cooking again will get durvalumab today 11/29/21 she has some chest soreness, some cough. overall doing well. PET/CT with great outcome. 11/28/21 NO RESIDUAL RIGHT MIDDLE LOBE MASS OR PATHOLOGIC ADENOPATHY. SUBCUTANEOUS NODULE IN THE RIGHT LABIAL REGION, POSSIBLYA SEBACEOUS CYST. CLINICAL CORRELATION IS RECOMMENDED. on durvalumab x 1 month. will continue for 12 month. pooping is good. She does not have any more diarrhea. 01/16/2022: Melida is here for add on visit due to multiple issues prior to next cycle of maintenance Durvalumab. 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 The patient reports a rather complicated clinical course over the past several weeks. To briefly summarize, the patient reportedly had a fall at home on 11/14/2021. The patient's family reports that approximately 3 weeks after she fell; and ~ 2-3 days after last immunotherapy; she began having a multitude of complaints including headaches, dizziness, balance issues, trouble swallowing and progressive weakness in extremities x 4. The patient is markedly fatigue, reports she is not even able to bathe or dress herself; can no longer ambulate and essentially cannot do any regular ADL's that she was doing a few months ago. Of note, the patient is usually with robust performance status and this is clearly a deviation of her baseline. She reports worsening dyspnea/shortness of breath; hard to feel like she is getting adequate air. She also reports a severely dry mouth and has obvious unilateral ptosis of the left eye. 02/24/22 She is doing better. She has dizziness. She is in a wheelchair today. She is scheduled for an EMG but she thinks she may cancel. Her breathing is better but still notes short of breath. Improved with albuterol inhaler. She is now able to get up and use a walker to get to the bathroom and she lays in bed and gets dressed. She notes her R arm continues to feel very heavy. Sheis just ambulating some finally with the walker this week with great difficulty. She has a lot of shaking in her R arm and cant hold her coffee or a spoon with peas on it. She continues on prednisone 40mg daily. 04/10/22 she is now prednisone 20mg. She has been on this for about two weeks. SHe complains still of shortness of breath. She follows with Dr. Mccarty but hasnt seen him in a while. She is in wheelchair again today. Still some L eye droop. She maintains on amiodarone, follows with Dr. Cadena. uses a walker, mobility is improving but still needs some help even with a walker. She continues to do her exercises daily. 05/08/22 She is on 10mg prednisone. She is going to decrease 5mg today. Her L eye looks quite a lot better. Still some at night. Still very short of breath. She see Dr. Mccarty a month ago. Dr. Cadena ordered PFTs. still on amiodarone. She uses oxygen on exertion now. wheelchair for distances. Walker at home for falling. 06/09/22 SHe had recent stress test. recent ct c/a/p with contrast without evidence of any cancer. she continues on 5 or 10mg prednisone for her presumed irae neurologic problems. she states she is better overall. She notes eyesight is bad all the time is blurry. She has some macular degeneration but no cataracts and following closely with her eye doctor. She notes some small bruising on her arms. she isnot on aspirin or plavix. 10/30/21 she is doing well enough overall. She continues to deal with a velez up the back of her head and then gets dizzy and nauseaous. She get pain in her head when she lay on the pillow. She statesit is not a headache but head pain. She does better without a pillow. She cantstand up for a long period of time because she gets this velez feeling worse and very uncomfortable. She has upcoming neuropthalmology appt with [facility]. This was a referral from Dr. Asif in [place]. Apparently she has been having some double vision and her extraocular motion exam with Dr. Asif showed lack of her eyes tracking well. she cant bend over or reach up for the velez to the head issue. ct chest abd pelvis 10/26/21 notes New consolidative changes centered in the right hilar region extending into theright middle and lower lobes. Finding could relate to evolving posttreatment changes given the history. Attention on follow-up is suggested. No CT evidenceof progression of disease is seen within the abdomen or pelvis. - Physical Exam ECOG PS: 1 General : patient is alert and oriented to person place and time, no acute distress. no ptosis. EOMI grossly abnormal. CNIII palsy, she has upgaze of R eye with attempted medial deviaiton. Neck: no JVD or thyromegaly. Lymph: no cervical, supraclavicular, axillary adenopathy. Heart: regular rate and rhythm no murmurs rubs or gallops. Abdomen: soft nontender nondistended, no hepatosplenomegaly. Lungs: cta bl, no wheezes, rales, rhonchi Extremities: no clubbing cyanosis. RUE still a bit clumsy and 5/5 strength. - Time with Patient Coordination of Care & Counseling Time: Greater than 50% of time spent with patient was for coordination of care (as documented) and [id number] counseling of patient and/or family. 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 Nicotine dependence, cigarettes, in remission Pernicious anemia Primary insomnia - Surgical History Surgical History: Surgical History (Last Reviewed 08/10/22 @ 06:19 by Joana Li LPN) History of appendectomy History of hernia repair History of hysterectomy History of left breast biopsy History of tonsillectomy - Family History Family History: Family History (Last Reviewed 08/10/22 @ 06:19 by Joana Li LPN) Other Breast cancer Pancreatic cancer Prostate cancer - Social History Smoking Status: Former smoker Tobacco Type: cigarettes Substance Use Type: None Additional Data - Additional Objective Data Height/Weight: Height 5 ft 5 in Weight 88.9 kg BSA for Today's Weight 2.04 Vital Signs: 10/30/22 09:51 Pulse Rate [Left Brachial] 60 Respiratory Rate 18 Blood Pressure [Left Arm] 111/53 L 02 Sat by Pulse Oximetry 98 Oxygen Delivery Method Room Air Distress Screening: RN Distress Screening Start: 06/09/21 11:10 Freq: Status: Complete Protocol: Document 06/23/21 14:32 DB (Rec: 06/23/21 14:32 DB [id number]) Distress Screening Distress Score: 0 No worry/distress Distress Screening Total 0 RN Distress Screening Start: 06/09/21 11:42 Freq: Status: Active Protocol: Document 08/01/21 10:42 DB (Rec: 08/01/21 10:43 DB [id number]) Distress Screening Distress Score: 2 Physical Concerns Feeling tired or a lack of energy Emotional Concerns Feeling uncertain about the future Distress Screening Total 2 - Lab Results Diagram of Most Recent CBC and CMP 10/26/22 09:27 10/26/22 09:27 Labs - Last 7 Days 10/26/22 09:27: Carcinoembryonic Ag 3.7 H 10/26/22 09:27: PHA Creatinine Clear 40.16, Sodium 135 L, Potassium 3.0 L, Chloride 96, Carbon Dioxide 29.1, Anion Gap 12.9, BUN 23, Creatinine 1.21 H, EstGFR ( Amer) 52, Est GFR (Non-Af Amer) 43, Glucose 125 H, Calcium 8.8, Total Bilirubin 0.4, AST 25, ALT 17, Alkaline Phosphatase 80, Total Protein 6.6,Albumin 3.0 L, Globulin 3.6, Albumin/Globulin Ratio 0.8 10/26/22 09:27: Corrected WBC 6.8, Uncorrected WBC Count 6.8, RBC 4.28, Hgb 12.9, Hct 38.9, MCV 91.0, MCH 30.1, MCHC 33.1, RDW 14.0, Plt Count 306, MPV 7.1,Neut % (Auto) 70.6, Lymph % (Auto) 16.5, Bowie % (Auto) 10.8, Eos % (Auto) 1.2, Baso % (Auto) 0.9, Nucleat RBC Rel Count 0.1, Neut # (Auto) 4.8, Lymph # (Auto) 1.1, Bowie # (Auto) 0.7, Eos # (Auto) 0.1, Baso # (Auto) 0.1 - Home Medications and Allergies Allergies/Adverse Reactions: Allergies RADHA Inhibitors Allergy (Verified 10/30/22 09:51) Unknown Reaction erythromycin base Allergy (Verified 10/30/22 09:51) Unknown Reaction rivaroxaban [From Xarelto] Allergy (Verified 10/30/22 09:51) Unknown Reaction tiotropium [From Spiriva with HandiHaler] Allergy (Verified 10/30/22 09:51) Unknown Reaction Home Medications: Home Medications albuterol sulfate 90 mcg/actuation aerosol inhaler (Ventolin HFA) 2 puff inhalation Q4H PRN Dyspnea 30 days #1 ea 01/30/22 [Rx Confirmed 10/30/22] amiodarone 200 mg tablet 200 mg PO DAILY 30 days #30 tabs 01/30/22 [Rx Confirmed 10/30/22] amlodipine 5 mg tablet 5 mg PO DAILY 30 days #30 tabs 01/30/22 [Rx Confirmed 10/30/22] fluticasone 113 mcg-salmeterol 14 mcg/actuation breath activated powdr 1 puff inhalation Q12HR 30 days #1 ea 04/18/22 [Rx Confirmed 10/30/22] hydrochlorothiazide 25 mg tablet 25 mg PO DAILY 30 days #30 tabs 01/30/22 [Rx Confirmed 10/30/22] levothyroxine 112 mcg tablet (Synthroid) 112 mcg PO SuTuThSa@0630 30 days #18 tabs 01/30/22 [Rx Confirmed 10/30/22] levothyroxine 125 mcg tablet 125 mcg PO MoWeFr@0630 30 days #13 tabs 01/30/22 [Rx Confirmed 10/30/22] potassium chloride 20 mEq tablet,extended release(part/cryst) (Klor-Con M) 20 meq PO DAILY 30 days #30 tabs 01/30/22 [Rx Confirmed 10/30/22] buspirone 15 mg tablet 7.5 mg PO BID 08/10/22 [History Confirmed 10/30/22] lorazepam 0.5 mg tablet 0.5 mg PO HS PRN Sleep 60 days #60 tabs 08/28/22 [Rx Confirmed 10/30/22] torsemide 20 mg tablet 20 mg PO DAILY 10/30/22 [History Confirmed 10/30/22] Dictated By: Bertha Christianson II, DO DD/ 1002 Signed By: <Electronically signed by Bertha Christianson II, DO> 10/30/[address] [place] [address] Work Phone: 1([phone] 148-154910-24-2022 Progress note Author Sherrie Melissa [facility] August 07, 2022 11:06am Note Date/Time August 07, 2022 9 :48am [facility] [place] [address] Rad Onc Follow Up Note - OP Signed Patient: Melida Valerio MR#: [id number] : 1940 Acct:[id number] Age/Sex: 82 / F Type: REG RCR Copies to: DO Hiral Teague DO Timothy J Adamowicz, II, DO~ Date of Service Service Date: 08/07/22 Assessment & Plan (2) Non-small cell lung cancer (NSCLC) Plan: Return to clinic as needed Assessment: 82-year-old female with 2 oncologic diagnoses: 1. 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 breast cancer in 2008 treated with lumpectomy and radiation in [place], [place]. She completed concurrent chemoradiation for lung cancer to a dose of 60 Wayne in 30 fractions in September 2021 under the care of Dr. Solorio. Since that time she was initiated on maintenance Durvalumab however this was held early in 2021 secondary to toxicity requiring hospitalization. Repeat PET/CT in Novemberhowed an radiographic complete response. Last CT scans of the chest abdomen andpelvis with no clear evidence of progressive disease. 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 MRI was completed on August 01, 2022 and was negative for intracranial metastatic disease. She has seen neuro-ophthalmology and she will continue to follow with them. Fortunately her extraocular movements are improved today on exam. Going forward patient will continue to follow with medical oncology for her imaging. We are happy to see her back if there is additional need for radiationor radiation related concern. Follow Up Note - Narrative 81-year-old female with: 1. 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 prior history of breast cancer in 2008 treated with lumpectomy and radiation in [place], [place]. She presented with shortness of breath in May 2021. Per the notes She went tot ER at [facility] and a chest CT scan showed right midlung consolidation. Bronchoscopy 05/30/2021 confirming endobronchial mass in the lateral segment of the right middle lobe. Biopsy confirmed squamous cell carcinoma, moderate to poorly differentiated. Patient's pulmonary function test in December 2020 showed a FEV1 of 1.95 L in the right middle lobe only comprise 11% of the total lung capacity. She also had a 2cm left adrenal nodule on the CT scan - biopsy negative She had a PET CT scan which showed increased FDG uptake in the right middle lobe extending to the right hilar area. Her EBUS and subcarinal node biopsies were reported negative. Patient received definitive concurrent chemoradiation to a dose of 60 Wayne in 30fractions completed in September 2021. Radiation was delivered under the care ofDr. Solorio. She received carboplatin and paclitaxol followed by maintenance durvalumab. Post treatment PET/CT 11/2021 [facility]. Durvalumab changed to monthly - received 1 dose on: 12/07/2021 At her last Med Onc follow up in February 2022 durvalumab was held for concern for immunotherapy related neurologic toxicity. 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 01/11/22 Brain MRI no evidence of intracranial metastasis or other acute changes. She had hospitalization for this including prolonged stay in the TCU. Ultimately she was discharged home She also has a history of severe and recurrent C. difficile infection. She was seen in follow-up w/repeat CT scan in June that showed no significant significant change in the chest abdomen or pelvis. There was no CT evidence of progression of disease. Her respiratory status is overall unchanged. She is now taper down her prednisone and uses half a tab every otherday. She has seen Dr. Mccarty as well as had PFTs which continue to show her needfor home oxygen when ambulating. Her newest complaint is occasional headaches as well as my eyes are not going in the same direction . Her marketing director recommended she see a neuro-marketing director at the [facility]. She has not been able to confirm an appointment yet. 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 MRI was completed on August 01, 2022 and was negative for intracranial metastatic disease. Today patient has seen neuro-ophthalmology. She will continue to follow with them and currently her eye movements have improved. She is planned for port revision this week. Physical Exam: General: alert and oriented female in wheelchair, no acute distress HEENT: normocephalic, CN palsy on RIGHT now resolved. Lungs: normal work of breathing on room air, Abdomen: non acute MSK: extremities within normal limits Neuro: grossly intact Dictated By: Sherrie Melissa MD DD/ [id number] Signed By: <Electronically signed by Sherrie Melissa MD> 08/07/22 [address] [facility] Work Phone: [phone] 577-750010-06-2022 Progress note Author Sherrie Melissa [facility] July 20, 2022 1:46pm Note Date/Time July 20, 2022 1: 04pm [facility] [place] [id number] Rad Onc Follow Up Note - OP Signed Patient: Melida Valerio MR#: [id number] : 1940 Acct:[id number] Age/Sex: 82 / F Type: REG RCR Copies to: Wong Espino,DO Mane Mccarty, DO Hiral Mccarty, DO Bertha Christianson, II, DO~ Date of Service Service Date: 07/20/22 Assessment & Plan (2) Non-small cell lung cancer (NSCLC) Plan: 1. MRI brain with and without for new onset cranial nerve palsy in the righteye-telephone follow-up. 2. Diazepam for premedication Assessment: 81-year-old female with 2 oncologic diagnoses: 1. 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 breast cancer in 2008 treated with lumpectomy and radiation in [place], [place]. She completed concurrent chemoradiation for lung cancer to a dose of 60 Wayne in 30 fractions in September 2021 under the care of Dr. Solorio. Since that time she was initiated on maintenance Durvalumab however this was held early in 2021 secondary to toxicity requiring hospitalization. Repeat PET/CT in Novemberhowed an radiographic complete response. I reviewed her recent CT scans of thechest abdomen and pelvis and concur with radiology there is no clear evidence ofprogressive disease. Would appear her respiratory status is likely a result of their Durvalumab whichhas been stopped earlier this year. She was encouraged to continue to comply with pulmonary's recommendations and use her O2 as needed. I am concerned regarding her headaches and new right eye cranial 6 palsy. Her marketing director mentioned that her right optic nerve was swollen and suggested she see a neuro-marketing director. In light of her non-small cell lung cancer I think it would be prudent to obtain an MRI. Patient reports severe claustrophobia so we reviewed the indications for premedication with diazepam and she was given a prescription. We will plan to do a telephone follow-up after MRI. Going forward patient will continue to follow with medical oncology for her imaging. Follow Up Note - Narrative 81-year-old female with: 1. 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 prior history of breast cancer in 2008 treated with lumpectomy and radiation in [place], [place]. She presented with shortness of breath in May 2021. Per the notes She went tot ER at [facility] and a chest CT scan showed right midlung consolidation. Bronchoscopy 05/30/2021 confirming endobronchial mass in the lateral segment of the right middle lobe. Biopsy confirmed squamous cell carcinoma, moderate to poorly differentiated. Patient's pulmonary function test in December 2020 showed a FEV1 of 1.95 L in the right middle lobe only comprise 11% of the total lung capacity. She also had a 2cm left adrenal nodule on the CT scan - biopsy negative She had a PET CT scan which showed increased FDG uptake in the right middle lobe extending to the right hilar area. Her EBUS and subcarinal node biopsies were reported negative. Patient received definitive concurrent chemoradiation to a dose of 60 Wayne in 30fractions completed in September 2021. Radiation was delivered under the care ofDr. Solorio. She received carboplatin and paclitaxol followed by maintenance durvalumab. Post treatment PET/CT 11/2021 [facility]. Durvalumab changed to monthly - received 1 dose on: 12/07/2021 At her last Med Onc follow up in February 2022 durvalumab was held for concern for immunotherapy related neurologic toxicity. 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 01/11/22 Brain MRI no evidence of intracranial metastasis or other acute changes. She had hospitalization for this including prolonged stay in the TCU. Ultimately she was discharged home She also has a history of severe and recurrent C. difficile infection. She returns to clinic today for follow-up having undergone repeat CT scan in June that showed no significant significant change in the chest abdomen or pelvis. There was no CT evidence of progression of disease. Her respiratory status is overall unchanged. She is now taper down her prednisone and uses halfa tab every other day. She has seen Dr. Mccarty as well as had PFTs which continue to show her need for home oxygen when ambulating. Her newest complaintis occasional headaches as well as my eyes are going in the same direction . Her marketing director recommended she [facility]. She has not been able to confirm an appointment yet. Physical Exam: General: alert and oriented female in wheelchair, no acute distress HEENT: normocephalic, CN palsy on RIGHT Lungs: normal work of breathing on room air, Abdomen: non acute MSK: extremities within normal limits Neuro: grossly intact Dictated By: Sherrie Melissa MD DD/ [id number] Signed By: <Electronically signed by Sherrie Melissa MD> 07/20/22 [address] [facility] Work Phone: [phone]) 595-597409-04-2022 Progress note Author Bertha Christianson [facility] June 18, 2022 2:00pm Note Date/Time June 09, 2022 11 :08[facility] [place] [id number] Hem/Onc Follow Up Note - OP Signed Patient: Melida Valerio MR#: [id number] : 1940 Acct:[id number] Age/Sex: 82 / F Type: REG RCR Copies to: Wong Espino,DO Hiral Mccarty DO~ Date of Service: 06/09/2022 Time of Service: 11:05 - Assessment & Plan (1) 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 Plan: 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 Stage IIB negative EBUS, negative adrenal nodule biopsy Completed concurrent chemoradiation for her cancer carboplatin and paclitaxel jul through sep 2021. followed by maintenance durvalumab. Started maintenance durvalumab (received 2 doses - 2 weeks apart) 10 mg/kg dosing- given 10/26/2021 and 11/09/2021. PET/CT 11/2021 [facility]. -- therapy changed to monthly dosing (Q 4 weeks - 1500 mg) - received 1 dose on: 12/07/2021 This was stopped early due to concern for immunotherapy related neurologic toxicity. 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 Brain MRI was essentially negative; with no evidence of intracranial metastasis or other acute changes. She had hospitalization for this including prolonged stay in the TCU. Ultimately she is discharged home and is getting stronger maintains prednisone 40 mg p.o. daily as of 02/24/2022. 10mg daily as of 05/08/22 drop to 5mg as of 06/09/22 She also has a history of severe and recurrent C. difficile infection. Follow Up Instructions: ct c/a/p with contrast in 4 mosnths and f/u after (with contrast). cbc, cmp, cea prior. 5mg prednisone refill. she will attempt to stop this. - History of Present Illness Chief Complaint: Patient is here for a one month follow up with scans and labs for review. Patient questions when things will get better from the reaction she had to immuno therapy. HPI: 81-year-old female referred from Dr. Mccarty whom I previously followed at [facility] for breast cancer. Past medical history includes hypertension, chronic venous insufficiency, gastroesophageal reflux disease, type 2 diabetes, quit smoking in 1999, pernicious anemia, hypothyroidism, iron deficiency anemia, paroxysmal atrial fibrillation, hyperlipidemia, chronic bronchitis.. She had a hysterectomy and nephrectomy in her 20s for endometriosis. Outpatient medications include ProAir, levothyroxine, hydrochlorothiazide, amlodipine, montelukast, amiodarone. DEXA scan from 2018 shows osteopenia in the hip and normal in the spine echocardiogram from May 2019 shows ejection fraction of greater than 55%, no significant wall motion abnormalities and mild diastolic dysfunction. Slightly elevated right-sided pressures. No significantvalvular abnormalities. She does have a sister with breast cancer in her 40s, mother sister had breast cancer in her 70s, mother's other sister had breast cancer in her 70s, mother had breast cancer in her 50s. Melida has 2 adopted children. She was diagnosed with ER/WA positive HER-2 negative breast cancer in 2009 at a hospital in [place]. She got adjuvant radiotherapy following lumpectomy. She did not get chemotherapy and refused adjuvant tamoxifen and has been monitored since. CAT scan of the chest from January 2017 showed no evidence of disease. She followed up with mammograms regularly and they were all normal. She had some short of breath since December 2020. In late April she noted a slight right upper quadrant pain. Worse with deep breathing. She went to ER on 05/16/21. She had XR with R sided consolidation. and A CT of the abdomen and pelvis from May 16, 2021 with IV contrast shows normallung bases, normal liver, pancreas, gallbladder, spleen. Left adrenal 2 cm nodule, normal kidneys, bladder, bowel, peritoneum. No enlarged lymph nodes. No abnormalities in the bones. She was admitted to the hospital and had CT chest next day which noted a large mass. Some dry irritating cough. She was discharged and f/u with dr. mccarty. She had a bronchoscopy on 05/30/[address] Mccarty. Found an endobronchial mass in the lateral segment of the right middle lobe. 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 Negative for TTF-1 and positive for P 40. She had pulmonary function studies in December 2020 with an FEV1 of 1.95 L in the right middle lobe only comprises 11% of the total lung capacity. She has not yet had PET/CT. had EBUS Dr. JOHNSON. Nodes all negative adrenal biopsy negative. PET/CT with disease localized, few nodes curious. 10/17/2021: Patient reports for post treatment follow up visit. 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 Towards the end of treatment she was diagnosed with C diff colitis treated first with oral Vancomycin and then Flagyl. Clinically, she is much improved. No further episodes of diarrhea. She appears non toxic. She is approximately 1 month out from treatment; she reports no significant or new issues other than dry, sometimes productive cough. Worse during the day; denies shortness of breath, sputum production, dysphagia, fever/chills, or hemoptysis. Plan to initiate maintenance Durvalumab as soon as insurance approves. She will need post treatment scan, as well. Will arrange for PET/CT scan in ~ 5 weeks with follow up thereafter. 11/09/21 she is feeling much better today, has not had diarrhea in 2 days. almost feels like she may be getting constipated she admits to not staying hydrated today and yesterday, so we encouraged her to push more fluids, which may help with her bowels as well she denies any other complaints, tolerating the fidaxomycin well energy is much improved and she is cooking again will get durvalumab today 11/29/21 she has some chest soreness, some cough. overall doing well. PET/CT with great outcome. 11/28/21 NO RESIDUAL RIGHT MIDDLE LOBE MASS OR PATHOLOGIC ADENOPATHY. SUBCUTANEOUS NODULE IN THE RIGHT LABIAL REGION, POSSIBLYA SEBACEOUS CYST. CLINICAL CORRELATION IS RECOMMENDED. on durvalumab x 1 month. will continue for 12 month. pooping is good. She does not have any more diarrhea. 01/16/2022: Melida is here for add on visit due to multiple issues prior to next cycle of maintenance Durvalumab. 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 The patient reports a rather complicated clinical course over the past several weeks. To briefly summarize, the patient reportedly had a fall at home on 11/14/2021. The patient's family reports that approximately 3 weeks after she fell; and ~ 2-3 days after last immunotherapy; she began having a multitude of complaints including headaches, dizziness, balance issues, trouble swallowing and progressive weakness in extremities x 4. The patient is markedly fatigue, reports she is not even able to bathe or dress herself; can no longer ambulate and essentially cannot do any regular ADL's that she was doing a few months ago.Of note, the patient is usually with robust performance status and this is clearly a deviation of her baseline. She reports worsening dyspnea/shortness of breath; hard to feel like she is getting adequate air. She also reports a severely dry mouth and has obvious unilateral ptosis of the left eye. 02/24/22 She is doing better. She has dizziness. She is in a wheelchair today. She is scheduled for an EMG but she thinks she may cancel. Her breathing is better but still notes short of breath. Improved with albuterol inhaler. She is now able to get up and use a walker to get to the bathroom and she lays in bed and gets dressed. She notes her R arm continues to feel very heavy. Sheis just ambulating some finally with the walker this week with great difficulty. She has a lot of shaking in her R arm and cant hold her coffee or a spoon with peas on it. She continues on prednisone 40mg daily. 04/10/22 she is now prednisone 20mg. She has been on this for about two weeks. SHe complains still of shortness of breath. She follows with Dr. Mccarty but hasnt seen him in a while. She is in wheelchair again today. Still some L eye droop. She maintains on amiodarone, follows with Dr. Cadena. uses a walker, mobility is improving but still needs some help even with a walker. She continues to do her exercises daily. 05/08/22 She is on 10mg prednisone. She is going to decrease 5mg today. Her L eye looks quite a lot better. Still some at night. Still very short of breath. She see Dr. Mccarty a month ago. Dr. Cadena ordered PFTs. still on amiodarone. She uses oxygen on exertion now. wheelchair for distances. Walker at home for falling. 06/09/22 SHe had recent stress test. recent ct c/a/p with contrast without evidence of any cancer. she continues on 5 or 10mg prednisone for her presumed irae neurologic problems. she states she is better overall. She notes eyesight is bad all the time is blurry. She has some macular degeneration but no cataracts and following closely with her eye doctor. She notes some small bruising on her arms. she isnot on aspirin or plavix. - Physical Exam ECOG PS: 1 General : patient is alert and oriented to person place and time, no acute distress. L eye ptosis marginally improved again. . Neck: no JVD or thyromegaly. Lymph: no cervical, supraclavicular, axillary adenopathy. Heart: regular rate and rhythm no murmurs rubs or gallops. Abdomen: soft nontender nondistended, no hepatosplenomegaly. Lungs: cta bl, no wheezes, rales, rhonchi Extremities: no clubbing cyanosis. RUE still a bit clumsy and 5/5 strength. - Time with Patient Coordination of Care & Counseling Time: Greater than 50% of time spent with patient was for coordination of care (as documented) and [id number]-[id number] counseling of patient and/or family. 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 Nicotine dependence, cigarettes, in remission Pernicious anemia Primary insomnia - Surgical History Surgical History: Surgical History (Last Reviewed 01/21/22 @ 18:43 by NADEEM Foy) History of appendectomy History of hernia repair History of hysterectomy History of left breast biopsy History of tonsillectomy - Family History Family History: Family History (Last Reviewed 01/21/22 @ 18:43 by NADEEM Foy) Other Breast cancer Pancreatic cancer Prostate cancer - Social History Smoking Status: Former smoker Tobacco Type: cigarettes Substance Use Type: None Additional Data - Additional Objective Data Height/Weight: Height 5 ft 5 in Weight 88.904 kg BSA for Today's Weight 2.04 Vital Signs: 06/09/22 10:57 Temperature 97.7 F Pulse Rate [Left Brachial] 58 L Respiratory Rate 20 Blood Pressure [Left Arm] 145/68 H 02 Sat by Pulse Oximetry 96 Oxygen Delivery Method Room Air Distress Screening: RN Distress Screening Start: 06/09/21 11:10 Freq: Status: Complete Protocol: Document 06/23/21 14:32 DB (Rec: 06/23/21 14:32 DB [id number]) Distress Screening Distress Score: 0 No worry/distress Distress Screening Total 0 RN Distress Screening Start: 06/09/21 11:42 Freq: Status: Active Protocol: Document 08/01/21 10:42 DB (Rec: 08/01/21 10:43 DB [id number]) Distress Screening Distress Score: 2 Physical Concerns Feeling tired or a lack of energy Emotional Concerns Feeling uncertain about the future Distress Screening Total 2 - Lab Results Diagram of Most Recent CBC and CMP 06/06/22 13:20 06/06/22 13:20 Labs - Last 7 Days 06/06/22 13:20: Carcinoembryonic Ag 3.4 H 06/06/22 13:20: PHA Creatinine Clear 53.68, Sodium 140, Potassium 4.1, Chloride 101, Carbon Dioxide 29.6, BUN 11, Creatinine 0.90, Est GFR ( Amer) > 60, Est GFR (Non-Af Amer) 60, Glucose 128 H, Calcium 8.8, Total Bilirubin 0.6, AST 27, ALT 20, Alkaline Phosphatase 61, Total Protein 6.2, Albumin 3.4, Globulin 2.8, Albumin/Globulin Ratio 1.2, TSH 3rd Generation 2.41 06/06/22 13:20: Corrected WBC 7.8, Uncorrected WBC Count 7.8, RBC 4.30, Hgb 13.8, Hct 41.7, MCV 97.1, MCH 32.2, MCHC 33.2, RDW 14.4, Plt Count 257, MPV 7.4,Neut % (Auto) 88.9, Lymph % (Auto) 7.2, Bowie % (Auto) 3.1, Eos % (Auto) 0.3, Baso % (Auto) 0.5, Neut # (Auto) 6.9, Lymph # (Auto) 0.6 L, Bowie # (Auto) 0.2, Eos # (Auto) 0.0, Baso # (Auto) 0.0, Nucleated RBC % (auto) 0.0 - Home Medications and Allergies Allergies/Adverse Reactions: Allergies RADHA Inhibitors Allergy (Verified 06/09/22 10:57) Unknown Reaction erythromycin base Allergy (Verified 06/09/22 10:57) Unknown Reaction rivaroxaban [From Xarelto] Allergy (Verified 06/09/22 10:57) Unknown Reaction tiotropium [From Spiriva with HandiHaler] Allergy (Verified 06/09/22 10:57) Unknown Reaction Home Medications: Home Medications acetaminophen 500 mg tablet 500 mg PO Q4H PRN Pain #0 tabs 01/30/22 [Rx Confirmed 05/08/22] albuterol sulfate 90 mcg/actuation aerosol inhaler (Ventolin HFA) 2 puff inhalation Q4H PRN Dyspnea 30 days #1 ea 01/30/22 [Rx Confirmed 05/08/22] amiodarone 200 mg tablet 200 mg PO DAILY 30 days #30 tabs 01/30/22 [Rx Confirmed 05/08/22] amlodipine 5 mg tablet 5 mg PO DAILY 30 days #30 tabs 01/30/22 [Rx Confirmed 05/08/22] fluticasone 113 mcg-salmeterol 14 mcg/actuation breath activated powdr 1 puff inhalation Q12HR 30 days #1 ea 01/30/22 [Rx Confirmed 05/08/22] hydrochlorothiazide 25 mg tablet 25 mg PO DAILY 30 days #30 tabs 01/30/22 [Rx Confirmed 05/08/22] levothyroxine 112 mcg tablet (Synthroid) 112 mcg PO SuTuThSa@0630 30 days #18 tabs 01/30/22 [Rx Confirmed 05/08/22] levothyroxine 125 mcg tablet 125 mcg PO MoWeFr@0630 30 days #13 tabs 01/30/22 [Rx Confirmed 05/08/22] potassium chloride 20 mEq tablet,extended release(part/cryst) (Klor-Con M) 20 meq PO DAILY 30 days #30 tabs 01/30/22 [Rx Confirmed 05/08/22] meclizine 25 mg tablet 25 mg PO DAILY 02/24/22 [History Confirmed 05/08/22] prednisone 10 mg tablet 10 mg PO DAILY #60 tabs 04/18/22 [Rx Confirmed 05/08/22] lorazepam 0.5 mg tablet 0.5 mg PO HS PRN Sleep 60 days #60 tabs 06/09/22 [Rx] Dictated By: Bertha Christianson II, DO DD/ 1105 Signed By: <Electronically signed by Bertha Christianson II, DO> 06/18/22 1400 [facility] Work Phone: 1(894) 852-651008-30-2022 Progress note Author Sherrie Melissa [facility] June 13, 2022 9:07am Note Date/Time April 07, 2022 10:4 5am [facility] [place] [address] Rad Onc Follow Up Note - OP Signed with Luiza Patient: Melida Valerio MR#: [id number] : 1940 Acct:[id number] Age/Sex: 81 / F Type: REG RCR Copies to: Wong Espino,DO Bertha Johnson II, DO~ ADDENDUM1 DOS 04/10/22 Addendum Dictated By: Sherrie Melissa MD Addendum Signed By: 06/13/22906 Addendum Cosigned By: DD/ TD/TT: 06/13/22 Assessment & Plan (2) Non-small cell lung cancer (NSCLC) Plan: 1. Referral to Pulm (placed by Med Onc) for evaluation for non oncologic cause of SOB- await their input. 2. Await PFT and RTC in 3 mos Assessment: 81-year-old female with 2 oncologic diagnoses: 1. 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 breast cancer in 2008 treated with lumpectomy and radiation in [place], [place]. She completed concurrent chemoradiation for lung cancer to a dose of 60 Wayne in 30 fractions in September 2021 under the care of Dr. Solorio. Since that time she was initiated on maintenance Durvalumab however this was held early in 2021 secondary to toxicity requiring hospitalization. Repeat PET/CT in Novemberhowed an radiographic complete response. I reviewed her recent CT scans of thechest abdomen and pelvis from February and concur with radiology there is no clear evidence of progressive disease. I concur with medical oncology regarding the referral for PFTs and pulmonology evaluation. If the shortness of breath was related to radiation pneumonitis that should have resolved with the high-dose steroids over the past month. In addition there is no radiographic correlate to radiation pneumonitis in her lungs have minimal scarring when I reviewed her CT scans and compare them to herpretreatment PET. Patient also has a history of autoimmune disease which could be another possible etiology. Would like to see her back in 3 months and await pulmonology input. Follow Up Note - Narrative 81-year-old female with: 1. 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 prior history of breast cancer in 2008 treated with lumpectomy and radiation in [place], [place]. She presented with shortness of breath in May 2021. Per the notes She went tot ER at [facility] and a chest CT scan showed right midlung consolidation. Bronchoscopy 05/30/2021 confirming endobronchial mass in the lateral segment of the right middle lobe. Biopsy confirmed squamous cell carcinoma, moderate to poorly differentiated. Patient's pulmonary function test in December 2020 showed a FEV1 of 1.95 L in the right middle lobe only comprise 11% of the total lung capacity. She also had a 2 cm left adrenal nodule on the CT scan - biopsy negative She had a PET CT scan which showed increased FDG uptake in the right middle lobe extending to the right hilar area. Her EBUS and subcarinal node biopsies were reported negative. Patient received definitive concurrent chemoradiation to a dose of 60 Wayne in 30fractions completed in September 2021. Radiation was delivered under the care ofDr. Solorio. She received carboplatin and paclitaxol followed by maintenance durvalumab. Post treatment PET/CT 11/2021 [facility]. Durvalumab changed to monthly - received 1 dose on: 12/07/2021 At her last Med Onc follow up in February 2022 durvalumab was held for concern for immunotherapy related neurologic toxicity. 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 01/11/22 Brain MRI no evidence of intracranial metastasis or other acute changes. She had hospitalization for this including prolonged stay in the TCU. Ultimately she was discharged home She is maintained on prednisone 40 mg p.o. daily as of 02/24/2022. She also has a history of severe and recurrent C. difficile infection. She returns to clinic today for follow-up having undergone repeat scans on February 22 that showed no significant significant change in the chest abdomen or pelvis. There was no CT evidence of progression of disease. She continues to report shortness of breath and states she has tapered the prednisone down to 20 mg daily. She reports dyspnea on exertion and does require intermittent use of herhome O2. Physical Exam: General: alert and oriented male in no acute distress HEENT: normocephalic, extra ocular movements intact, clear OP Lungs: normal work of breathing on room air, CTAB, no w/r/r Lymph: No palpable cervical nor supraclavicular lymphadenopathy Abdomen: non acute MSK: extremities within normal limits Neuro: grossly intact Dictated By: Sherrie Melissa MD DD/ 1044 Signed By: <Electronically signed by Sherrie Melissa MD> 04/10/22 [address] [facility] Work Phone: 1([phone]) 352-874907-26-2022 Progress note Author Bertha Christianson [facility] May 08, 2022 11:00pm Note Date/Time May 08, 2022 11:0 6am [facility] [place] [address] Hem/Onc Follow Up Note - OP Signed Patient: Melida Valerio MR#: [id number] : 1940 Acct:[id number] Age/Sex: 82 / F Type: REG RCR Copies to: DO Hiral Teague DO~ Date of Service: 05/08/2022 Time of Service: 11:06 - Assessment & Plan (1) 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 Plan: 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 Stage IIB negative EBUS, negative adrenal nodule biopsy Completed concurrent chemoradiation for her cancer carboplatin and paclitaxel jul through sep 2021. followed by maintenance durvalumab. Started maintenance durvalumab (received 2 doses - 2 weeks apart) 10 mg/kg dosing- given 10/26/2021 and 11/09/2021. PET/CT 11/2021 [facility]. -- therapy changed to monthly dosing (Q 4 weeks - 1500 mg) - received 1 dose on:12/07/2021 This was stopped early due to concern for immunotherapy related neurologic toxicity. 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 Brain MRI was essentially negative; with no evidence of intracranial metastasis or other acute changes. She had hospitalization for this including prolonged stay in the TCU. Ultimately she is discharged home and is getting stronger maintains prednisone 40 mg p.o. daily as of 02/24/2022. 10mg daily as of 05/08/22 She also has a history of severe and recurrent C. difficile infection. Follow Up Instructions: f/u in a month after ct chest abd pelvis with iv contrast. to be done here. cbc, cmp, cea prior to f/u. - History of Present Illness Chief Complaint: Patient is here for a one month follow up, has outside notes and labs for review, labs also done at [facility] 05/03/2022. No concerns voiced at this time. HPI: 81-year-old female referred from Dr. Mccarty whom I previously followed at [facility] for breast cancer. Past medical history includes hypertension, chronic venous insufficiency, gastroesophageal reflux disease, type 2 diabetes, quit smoking in 1999, pernicious anemia, hypothyroidism, iron deficiency anemia, paroxysmal atrial fibrillation, hyperlipidemia, chronic bronchitis.. She had a hysterectomy and nephrectomy in her 20s for endometriosis. Outpatient medications include ProAir, levothyroxine, hydrochlorothiazide, amlodipine, montelukast, amiodarone. DEXA scan from 2018 shows osteopenia in the hip and normal in the spine echocardiogram from May 2019 shows ejection fraction of greater than 55%, no significant wall motion abnormalities and mild diastolic dysfunction. Slightly elevated right-sided pressures. No significant valvular abnormalities. She does have a sister with breast cancer in her 40s, mother sister had breast cancer in her 70s, mother's other sister had breast cancer in her 70s, mother had breast cancer in her 50s. Melida has 2 adopted children. She was diagnosed with ER/WA positive HER-2 negative breast cancer in 2009 at a hospital in [place]. She got adjuvant radiotherapy following lumpectomy. She did not get chemotherapy and refused adjuvant tamoxifen and has been monitored since. CAT scan of the chest from January 2017 showed no evidence of disease. She followed up with mammograms regularly and they were all normal. She had some short of breath since December 2020. In late April she noted a slight right upper quadrant pain. Worse with deep breathing. She went to ER on 05/16/21. She had XR with R sided consolidation. and A CT of the abdomen and pelvis from May 16, 2021 with IV contrast shows normallung bases, normal liver, pancreas, gallbladder, spleen. Left adrenal 2 cm nodule, normal kidneys, bladder, bowel, peritoneum. No enlarged lymph nodes. No abnormalities in the bones. She was admitted to the hospital and had CT chest next day which noted a large mass. Some dry irritating cough. She was discharged and f/u with dr. mccarty. She had a bronchoscopy on 05/30/[address] Mccarty. Found an endobronchial mass in the lateral segment of the right middle lobe. 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 Negative for TTF-1 and positive for P 40. She had pulmonary function studies in December 2020 with an FEV1 of 1.95 L in the right middle lobe only comprises 11% of the total lung capacity. She has not yet had PET/CT. had EBUS Dr. JOHNSON. Nodes all negative adrenal biopsy negative. PET/CT with disease localized, few nodes curious. 10/17/2021: Patient reports for post treatment follow up visit. 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 Towards the end of treatment she was diagnosed with C diff colitis treated first with oral Vancomycin and then Flagyl. Clinically, she is much improved. No further episodes of diarrhea. She appears non toxic. She is approximately 1 month out from treatment; she reports no significant or new issues other than dry, sometimes productive cough. Worse during the day; denies shortness of breath, sputum production, dysphagia, fever/chills, or hemoptysis. Plan to initiate maintenance Durvalumab as soon as insurance approves. She will need post treatment scan, as well. Will arrange for PET/CT scan in ~ 5 weeks with follow up thereafter. 11/09/21 she is feeling much better today, has not had diarrhea in 2 days. almost feels like she may be getting constipated she admits to not staying hydrated today and yesterday, so we encouraged her to push more fluids, which may help with her bowels as well she denies any other complaints, tolerating the fidaxomycin well energy is much improved and she is cooking again will get durvalumab today 11/29/21 she has some chest soreness, some cough. overall doing well. PET/CT with great outcome. 11/28/21 NO RESIDUAL RIGHT MIDDLE LOBE MASS OR PATHOLOGIC ADENOPATHY. SUBCUTANEOUS NODULE IN THE RIGHT LABIAL REGION, POSSIBLYA SEBACEOUS CYST. CLINICAL CORRELATION IS RECOMMENDED. on durvalumab x 1 month. will continue for 12 month. pooping is good. She does not have any more diarrhea. 01/16/2022: Melida is here for add on visit due to multiple issues prior to next cycle of maintenance Durvalumab. 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 The patient reports a rather complicated clinical course over the past several weeks. To briefly summarize, the patient reportedly had a fall at home on 11/14/2021. The patient's family reports that approximately 3 weeks after she fell; and ~ 2-3 days after last immunotherapy; she began having a multitude of complaints including headaches, dizziness, balance issues, trouble swallowing and progressive weakness in extremities x 4. The patient is markedly fatigue, reports she is not even able to bathe or dress herself; can no longer ambulate and essentially cannot do any regular ADL's that she was doing a few months ago.Of note, the patient is usually with robust performance status and this is clearly a deviation of her baseline. She reports worsening dyspnea/shortness of breath; hard to feel like she is getting adequate air. She also reports a severely dry mouth and has obvious unilateral ptosis of the left eye. 02/24/22 She is doing better. She has dizziness. She is in a wheelchair today. She is scheduled for an EMG but she thinks she may cancel. Her breathing is better but still notes short of breath. Improved with albuterol inhaler. She is now able to get up and use a walker to get to the bathroom and she lays in bed and gets dressed. She notes her R arm continues to feel very heavy. Sheis just ambulating some finally with the walker this week with great difficulty. She has a lot of shaking in her R arm and cant hold her coffee or a spoon with peas on it. She continues on prednisone 40mg daily. 04/10/22 she is now prednisone 20mg. She has been on this for about two weeks. SHe complains still of shortness of breath. She follows with Dr. Mccarty but hasnt seen him in a while. She is in wheelchair again today. Still some L eye droop. She maintains on amiodarone, follows with Dr. Cadena. uses a walker, mobility is improving but still needs some help even with a walker. She continues to do her exercises daily. 05/08/22 She is on 10mg prednisone. She is going to decrease 5mg today. Her L eye looks quite a lot better. Still some at night. Still very short of breath. She see Dr. Mccarty a month ago. Dr. Cadena ordered PFTs. still on amiodarone. She uses oxygen on exertion now. wheelchair for distances. Walker at home for falling. - Physical Exam ECOG PS: 1 General : patient is alert and oriented to person place and time, no acute distress. L eye ptosis marginally improved again. . Neck: no JVD or thyromegaly. Lymph: no cervical, supraclavicular, axillary adenopathy. Heart: regular rate and rhythm no murmurs rubs or gallops. Abdomen: soft nontender nondistended, no hepatosplenomegaly. Lungs: cta bl, no wheezes, rales, rhonchi Extremities: no clubbing cyanosis. RUE still a bit clumsy and 5/5 strength. - Time with Patient Coordination of Care & Counseling Time: Greater than 50% of time spent with patient was for coordination of care (as documented) and [id number] counseling of patient and/or family. 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 Nicotine dependence, cigarettes, in remission Pernicious anemia Primary insomnia - Surgical History Surgical History: Surgical History (Last Reviewed 01/21/22 @ 18:43 by NADEEM Foy) History of appendectomy History of hernia repair History of hysterectomy History of left breast biopsy History of tonsillectomy - Family History Family History: Family History (Last Reviewed 01/21/22 @ 18:43 by NADEEM Foy) Other Breast cancer Pancreatic cancer Prostate cancer - Social History Smoking Status: Former smoker Tobacco Type: cigarettes Substance Use Type: None Additional Data - Additional Objective Data Height/Weight: Height 5 ft 5 in Weight 87.906 kg BSA for Today's Weight 2.04 Vital Signs: 05/08/22 10:32 Temperature 97.9 F Pulse Rate [Left Brachial] 63 Respiratory Rate 20 Blood Pressure [Left Arm] 125/67 02 Sat by Pulse Oximetry 97 Oxygen Delivery Method Room Air Distress Screening: RN Distress Screening Start: 06/09/21 11:10 Freq: Status: Complete Protocol: Document 06/23/21 14:32 DB (Rec: 06/23/21 14:32 DB [id number]) Distress Screening Distress Score: 0 No worry/distress Distress Screening Total 0 RN Distress Screening Start: 06/09/21 11:42 Freq: Status: Active Protocol: Document 08/01/21 10:42 DB (Rec: 08/01/21 10:43 DB [id number]) Distress Screening Distress Score: 2 Physical Concerns Feeling tired or a lack of energy Emotional Concerns Feeling uncertain about the future Distress Screening Total 2 - Lab Results Diagram of Most Recent CBC and CMP 05/03/22 09:58 05/03/22 09:58 Labs - Last 7 Days 05/03/22 09:58: ACTH 4.9 L 05/03/22 09:58: Copper 127 05/03/22 09:58: Carcinoembryonic Ag 2.9 05/03/22 09:58: PHA Creatinine Clear 56.03, Sodium 139, Potassium 3.2 L, Chloride 102, Carbon Dioxide 29.4, BUN 14, Creatinine 0.86, Est GFR ( Amer) > 60, Est GFR (Non-Af Amer) > 60, Glucose 117 H, Calcium 8.6, Magnesium 1.7, Total Bilirubin 0.7, AST 27, ALT 23, Alkaline Phosphatase 55, Total Protein5.6 L, Albumin 2.9 L, Globulin 2.7, Albumin/Globulin Ratio 1.1, Free T4 1.75 H, TSH 3rd Generation 6.13 H 05/03/22 09:58: Corrected WBC 10.5, Uncorrected WBC Count 10.5, RBC 4.04, Hgb 13.1, Hct 38.7, MCV 96.0, MCH 32.4, MCHC 33.7, RDW 15.8 H, Plt Count 261, MPV 7.0, Neut % (Auto) 87.2, Lymph % (Auto) 6.3, Bowie % (Auto) 5.5, Eos % (Auto) 0.5, Baso % (Auto) 0.5, Neut # (Auto) 9.1 H, Lymph # (Auto) 0.7 L, Bowie # (Auto)0.6, Eos # (Auto) 0.0, Baso # (Auto) 0.1, Nucleated RBC % (auto) 0.0 - Home Medications and Allergies Allergies/Adverse Reactions: Allergies RADHA Inhibitors Allergy (Verified 04/10/22 10:10) Unknown Reaction erythromycin base Allergy (Verified 04/10/22 10:10) Unknown Reaction rivaroxaban [From Xarelto] Allergy (Verified 04/10/22 10:10) Unknown Reaction tiotropium [From Spiriva with HandiHaler] Allergy (Verified 04/10/22 10:10) Unknown Reaction Home Medications: Home Medications acetaminophen 500 mg tablet 500 mg PO Q4H PRN Pain #0 tabs 01/30/22 [Rx Confirmed 05/08/22] albuterol sulfate 90 mcg/actuation aerosol inhaler (Ventolin HFA) 2 puff inhalation Q4H PRN Dyspnea 30 days #1 ea 01/30/22 [Rx Confirmed 05/08/22] amiodarone 200 mg tablet 200 mg PO DAILY 30 days #30 tabs 01/30/22 [Rx Confirmed 05/08/22] amlodipine 5 mg tablet 5 mg PO DAILY 30 days #30 tabs 01/30/22 [Rx Confirmed 05/08/22] fluticasone 113 mcg-salmeterol 14 mcg/actuation breath activated powdr 1 puff inhalation Q12HR 30 days #1 ea 01/30/22 [Rx Confirmed 05/08/22] hydrochlorothiazide 25 mg tablet 25 mg PO DAILY 30 days #30 tabs 01/30/22 [Rx Confirmed 05/08/22] levothyroxine 112 mcg tablet (Synthroid) 112 mcg PO SuTuThSa@0630 30 days #18 tabs 01/30/22 [Rx Confirmed 05/08/22] levothyroxine 125 mcg tablet 125 mcg PO MoWeFr@0630 30 days #13 tabs 01/30/22 [Rx Confirmed 05/08/22] potassium chloride 20 mEq tablet,extended release(part/cryst) (Klor-Con M) 20 meq PO DAILY 30 days #30 tabs 01/30/22 [Rx Confirmed 05/08/22] meclizine 25 mg tablet 25 mg PO DAILY 02/24/22 [History Confirmed 05/08/22] lorazepam 0.5 mg tablet 0.5 mg PO HS PRN Sleep 60 days #60 tabs 04/10/22 [Rx Confirmed 05/08/22] prednisone 10 mg tablet 10 mg PO DAILY #60 tabs 04/18/22 [Rx Confirmed 05/08/22] Dictated By: Bertha Christianson II, DO DD/ [id number] Signed By: <Electronically signed by Bertha Christianson II, DO> 05/08/22 [address] Work Phone: [phone]) 239-934706-27-2022 Progress note Author Sherrie [facility] April 10, 2022 11:34am Note Date/Time April 07, 2022 10:4 5am [facility] [place] [address] Rad Onc Follow Up Note - OP Signed Patient: Melida Valerio MR#: [id number] : 1940 Acct:[id number] Age/Sex: 81 / F Type: REG RCR Copies to: Wong Espino,DO Hiral Mccarty, DO Bertha Christianson II, DO~ Assessment & Plan (2) Non-small cell lung cancer (NSCLC) Plan: 1. Referral to Pulm (placed by Med Onc) for evaluation for non oncologic cause of SOB- await their input. 2. Await PFT and RTC in 3 mos Assessment: 81-year-old female with 2 oncologic diagnoses: 1. 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 breast cancer in 2008 treated with lumpectomy and radiation in [place], [place]. She completed concurrent chemoradiation for lung cancer to a dose of 60 Wayne in 30 fractions in September 2021 under the care of Dr. Solorio. Since that time she was initiated on maintenance Durvalumab however this was held early in 2021 secondary to toxicity requiring hospitalization. Repeat PET/CT in Novemberhowed an radiographic complete response. I reviewed her recent CT scans of thechest abdomen and pelvis from February and concur with radiology there is no clear evidence of progressive disease. I concur with medical oncology regarding the referral for PFTs and pulmonology evaluation. If the shortness of breath was related to radiation pneumonitis that should have resolved with the high-dose steroids over the past month. In addition there is no radiographic correlate to radiation pneumonitis in her lungs have minimal scarring when I reviewed her CT scans and compare them to herpretreatment PET. Patient also has a history of autoimmune disease which could be another possible etiology. Would like to see her back in 3 months and await pulmonology input. Follow Up Note - Narrative 81-year-old female with: 1. 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 prior history of breast cancer in 2008 treated with lumpectomy and radiation in [place], [place]. She presented with shortness of breath in May 2021. Per the notes She went tot ER at [facility] and a chest CT scan showed right midlung consolidation. Bronchoscopy 05/30/2021 confirming endobronchial mass in the lateral segment of the right middle lobe. Biopsy confirmed squamous cell carcinoma, moderate to poorly differentiated. Patient's pulmonary function test in December 2020 showed a FEV1 of 1.95 L in the right middle lobe only comprise 11% of the total lung capacity. She also had a 2cm left adrenal nodule on the CT scan - biopsy negative She had a PET CT scan which showed increased FDG uptake in the right middle lobe extending to the right hilar area. Her EBUS and subcarinal node biopsies were reported negative. Patient received definitive concurrent chemoradiation to a dose of 60 Wayne in 30fractions completed in September 2021. Radiation was delivered under the care ofDr. Solorio. She received carboplatin and paclitaxol followed by maintenance durvalumab. Post treatment PET/CT 11/2021 [facility]. Durvalumab changed to monthly - received 1 dose on: 12/07/2021 At her last Med Onc follow up in February 2022 durvalumab was held for concern for immunotherapy related neurologic toxicity. 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 01/11/22 Brain MRI no evidence of intracranial metastasis or other acute changes. She had hospitalization for this including prolonged stay in the TCU. Ultimately she was discharged home She is maintained on prednisone 40 mg p.o. daily as of 02/24/2022. She also has a history of severe and recurrent C. difficile infection. She returns to clinic today for follow-up having undergone repeat scans on February 22 that showed no significant significant change in the chest abdomen or pelvis. There was no CT evidence of progression of disease. She continues to report shortness of breath and states she has tapered the prednisone down to 20 mg daily. She reports dyspnea on exertion and does require intermittent use of her home O2. Physical Exam: General: alert and oriented male in no acute distress HEENT: normocephalic, extra ocular movements intact, clear OP Lungs: normal work of breathing on room air, CTAB, no w/r/r Lymph: No palpable cervical nor supraclavicular lymphadenopathy Abdomen: non acute MSK: extremities within normal limits Neuro: grossly intact Dictated By: Sherrie Melissa MD DD/ [id number] Signed By: <Electronically signed by Sherrie Melissa MD> 04/10/22 [address] Work Phone: [phone]) 816-947206-27-2022 Progress note Author Bertha Christianson [facility] April 10, 2022 10:58am Note Date/Time April 10, 2022 10:5 3am [facility] [place] [address] Hem/Onc Follow Up Note - OP Signed Patient: Melida Valerio MR#: [id number] : 1940 Acct:[id number] Age/Sex: 81 / F Type: REG RCR Copies to: DO Hiral Teague DO~ Date of Service: 04/10/2022 Time of Service: 10:52 - Assessment & Plan (1) 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 Plan: 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 Stage IIB negative EBUS, negative adrenal nodule biopsy Completed concurrent chemoradiation for her cancer carboplatin and paclitaxol oct through sep 2021. followed by maintenance durvalumab. Started maintenance durvalumab (received 2 doses - 2 weeks apart) 10 mg/kg dosing- given 10/26/2021 and 11/09/2021. PET/CT 11/2021 [facility]. -- therapy changed to monthly dosing (Q 4 weeks - 1500 mg) - received 1 dose on:12/07/2021 Currently being held for concern for immunotherapy related neurologic toxicity. 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 Brain MRI was essentially negative; with no evidence of intracranial metastasis or other acute changes. She had hospitalization for this including prolonged stay in the TCU. Ultimately she is discharged home and is getting stronger maintains prednisone 40 mg p.o. daily as of 02/24/2022. She also has a history of severe and recurrent C. difficile infection. Follow Up Instructions: drop prednisone to 10mg daily pfts at [facility] refer back to Ivory Mccarty. F/u 1 month. cbc, cmp, cea, copper, magnesium prior. - History of Present Illness Chief Complaint: Patient is here for a 6 week follow up with labs for review. Patient states that she is more short of breath than usual. She will also see radiation oncology today. No other concerns voiced at this time. HPI: 81-year-old female referred from Dr. Mccarty whom I previously followed at [facility] for breast cancer. Past medical history includes hypertension, chronic venous insufficiency, gastroesophageal reflux disease, type 2 diabetes, quit smoking in 1999, pernicious anemia, hypothyroidism, iron deficiency anemia, paroxysmal atrial fibrillation, hyperlipidemia, chronic bronchitis.. She had a hysterectomy and nephrectomy in her 20s for endometriosis. Outpatient medications include ProAir, levothyroxine, hydrochlorothiazide, amlodipine, montelukast, amiodarone. DEXA scan from 2018 shows osteopenia in the hip and normal in the spine echocardiogram from May 2019 shows ejection fraction of greater than 55%, no significant wall motion abnormalities and mild diastolic dysfunction. Slightly elevated right-sided pressures. No significant valvular abnormalities. She does have a sister with breast cancer in her 40s, mother sister had breast cancer in her 70s, mother's other sister had breast cancer in her 70s, mother had breast cancer in her 50s. Melida has 2 adopted children. She was diagnosed with ER/WA positive HER-2 negative breast cancer in 2009 at a hospital in [place]. She got adjuvant radiotherapy following lumpectomy. She did not get chemotherapy and refused adjuvant tamoxifen and has been monitored since. CAT scan of the chest from January 2017 showed no evidence of disease. She followed up with mammograms regularly and they were all normal. She had some short of breath since December 2020. In late April she noted a slight right upper quadrant pain. Worse with deep breathing. She went to ER on 05/16/21. She had XR with R sided consolidation. and A CT of the abdomen and pelvis from May 16, 2021 with IV contrast shows normallung bases, normal liver, pancreas, gallbladder, spleen. Left adrenal 2 cm nodule, normal kidneys, bladder, bowel, peritoneum. No enlarged lymph nodes. No abnormalities in the bones. She was admitted to the hospital and had CT chest next day which noted a large mass. Some dry irritating cough. She was discharged and f/u with dr. mccarty. She had a bronchoscopy on 05/30/[address] Mccarty. Found an endobronchial mass in the lateral segment of the right middle lobe. 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 Negative for TTF-1 and positive for P 40. She had pulmonary function studies in December 2020 with an FEV1 of 1.95 L in the right middle lobe only comprises 11% of the total lung capacity. She has not yet had PET/CT. had EBUS Dr. JOHNSON. Nodes all negative adrenal biopsy negative. PET/CT with disease localized, few nodes curious. 10/17/2021: Patient reports for post treatment follow up visit. 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 Towards the end of treatment she was diagnosed with C diff colitis treated first with oral Vancomycin and then Flagyl. Clinically, she is much improved. No further episodes of diarrhea. She appears non toxic. She is approximately 1 month out from treatment; she reports no significant or new issues other than dry, sometimes productive cough. Worse during the day; denies shortness of breath, sputum production, dysphagia, fever/chills, or hemoptysis. Plan to initiate maintenance Durvalumab as soon as insurance approves. She will need post treatment scan, as well. Will arrange for PET/CT scan in ~ 5 weeks with follow up thereafter. 11/09/21 she is feeling much better today, has not had diarrhea in 2 days. almost feels like she may be getting constipated she admits to not staying hydrated today and yesterday, so we encouraged her to push more fluids, which may help with her bowels as well she denies any other complaints, tolerating the fidaxomycin well energy is much improved and she is cooking again will get durvalumab today 11/29/21 she has some chest soreness, some cough. overall doing well. PET/CT with great outcome. 11/28/21 NO RESIDUAL RIGHT MIDDLE LOBE MASS OR PATHOLOGIC ADENOPATHY. SUBCUTANEOUS NODULE IN THE RIGHT LABIAL REGION, POSSIBLYA SEBACEOUS CYST. CLINICAL CORRELATION IS RECOMMENDED. on durvalumab x 1 month. will continue for 12 month. pooping is good. She does not have any more diarrhea. 01/16/2022: Melida is here for add on visit due to multiple issues prior to next cycle of maintenance Durvalumab. 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 The patient reports a rather complicated clinical course over the past several weeks. To briefly summarize, the patient reportedly had a fall at home on 11/14/2021. The patient's family reports that approximately 3 weeks after she fell; and ~ 2-3 days after last immunotherapy; she began having a multitude of complaints including headaches, dizziness, balance issues, trouble swallowing and progressive weakness in extremities x 4. The patient is markedly fatigue, reports she is not even able to bathe or dress herself; can no longer ambulate and essentially cannot do any regular ADL's that she was doing a few months ago.Of note, the patient is usually with robust performance status and this is clearly a deviation of her baseline. She reports worsening dyspnea/shortness of breath; hard to feel like she is getting adequate air. She also reports a severely dry mouth and has obvious unilateral ptosis of the left eye. 02/24/22 She is doing better. She has dizziness. She is in a wheelchair today. She is scheduled for an EMG but she thinks she may cancel. Her breathing is better but still notes short of breath. Improved with albuterol inhaler. She is now able to get up and use a walker to get to the bathroom and she lays in bed and gets dressed. She notes her R arm continues to feel very heavy. Sheis just ambulating some finally with the walker this week with great difficulty. She has a lot of shaking in her R arm and cant hold her coffee or a spoon with peas on it. She continues on prednisone 40mg daily. 04/10/22 she is now prednisone 20mg. She has been on this for about two weeks. SHe complains still of shortness of breath. She follows with Dr. Mccarty but hasnt seen him in a while. She is in wheelchair again today. Still some L eye droop. She maintains on amiodarone, follows with Dr. Cadena. uses a walker, mobility is improving but still needs some help even with a walker. She continues to do her exercises daily. - Physical Exam ECOG PS: 0 General : patient is alert and oriented to person place and time, no acute distress. L eye ptosis marginally improved again. . Neck: no JVD or thyromegaly. Lymph: no cervical, supraclavicular, axillary adenopathy. Heart: regular rate and rhythm no murmurs rubs or gallops. Abdomen: soft nontender nondistended, no hepatosplenomegaly. Lungs: cta bl, no wheezes, rales, rhonchi Extremities: no clubbing cyanosis. RUE still a bit clumsy and 5/5 strength. - Time with Patient Coordination of Care & Counseling Time: Greater than 50% of time spent with patient was for coordination of care (as documented) and [id number] counseling of patient and/or family. [facility] - Medical History Medical History: Medical History (Last Reviewed 01/21/22 @ 18:43 by NADEEM Foy) Adenomatous colon polyp Allergic rhinitis Autoimmune hypothyroidism Chronic venous insufficiency Dysuria-frequency syndrome Essential hypertension GERD (gastroesophageal reflux disease) History of left breast cancer lumpectomy, radiation treatment History of tobacco abuse Hyperlipidemia Iron deficiency anemia secondary to blood loss (chronic) snf (current) use of inhaled steroids Nicotine dependence, cigarettes, in remission Pernicious anemia Primary insomnia - Surgical History Surgical History: Surgical History (Last Reviewed 01/21/22 @ 18:43 by NADEEM Foy) History of appendectomy History of hernia repair History of hysterectomy History of left breast biopsy History of tonsillectomy - Family History Family History: Family History (Last Reviewed 01/21/22 @ 18:43 by NADEEM Foy) Other Breast cancer Pancreatic cancer Prostate cancer - Social History Smoking Status: Former smoker Tobacco Type: cigarettes Substance Use Type: None Additional Data - Additional Objective Data Height/Weight: Height 5 ft 5 in Weight 87.453 kg BSA for Today's Weight 2.04 Vital Signs: 04/10/22 10:10 Temperature 97.8 F Pulse Rate [Left Brachial] 67 Respiratory Rate 18 Blood Pressure [Left Arm] 120/57 L 02 Sat by Pulse Oximetry 98 Distress Screening: RN Distress Screening Start: 06/09/21 11:10 Freq: Status: Complete Protocol: Document 06/23/21 14:32 DB (Rec: 06/23/21 14:32 DB [id number]) Distress Screening Distress Score: 0 No worry/distress Distress Screening Total 0 RN Distress Screening Start: 06/09/21 11:42 Freq: Status: Active Protocol: Document 08/01/21 10:42 DB (Rec: 08/01/21 10:43 DB [id number]) Distress Screening Distress Score: 2 Physical Concerns Feeling tired or a lack of energy Emotional Concerns Feeling uncertain about the future Distress Screening Total 2 - Lab Results Diagram of Most Recent CBC and CMP 04/06/22 15:01 04/06/22 15:01 Labs - Last 7 Days 04/06/22 15:01: Carcinoembryonic Ag 3.8 H 04/06/22 15:01: PHA Creatinine Clear 54.01, Sodium 138, Potassium 3.4 L, Chloride 99, Carbon Dioxide 25.9, BUN 9, Creatinine 0.90, Est GFR ( Amer)> 60, Est GFR (Non-Af Amer) 60, Glucose 211 H, Calcium 8.6, Total Bilirubin 0.6,AST 40, ALT 35, Alkaline Phosphatase 62, Total Protein 5.7 L, Albumin 3.0 L, Globulin 2.7, Albumin/Globulin Ratio 1.1 04/06/22 15:01: Corrected WBC 7.5, Uncorrected WBC Count 7.5, RBC 4.25, Hgb 13.5, Hct 40.2, MCV 94.6, MCH 31.7, MCHC 33.5, RDW 16.0 H, Plt Count 240, MPV 7.0, Neut % (Auto) 94.3, Lymph % (Auto) 3.8, Bowie % (Auto) 1.4, Eos % (Auto) 0.0, Baso % (Auto) 0.5, Neut # (Auto) 7.1, Lymph # (Auto) 0.3 L, Bowie # (Auto) 0.1, Eos # (Auto) 0.0, Baso # (Auto) 0.0, Nucleated RBC % (auto) 0.1 - Home Medications and Allergies Allergies/Adverse Reactions: Allergies RADHA Inhibitors Allergy (Verified 04/10/22 10:10) Unknown Reaction erythromycin base Allergy (Verified 04/10/22 10:10) Unknown Reaction rivaroxaban [From Xarelto] Allergy (Verified 04/10/22 10:10) Unknown Reaction tiotropium [From Spiriva with HandiHaler] Allergy (Verified 04/10/22 10:10) Unknown Reaction Home Medications: Home Medications acetaminophen 500 mg tablet 500 mg PO Q4H PRN #0 tab 01/30/22 [Rx Confirmed 04/10/22] albuterol sulfate 90 mcg/actuation aerosol inhaler (Ventolin HFA) 2 puff INHALATION Q4H PRN 30 Days #1 ea 01/30/22 [Rx Confirmed 04/10/22] amiodarone 200 mg tablet 200 mg PO DAILY 30 Days #30 tab 01/30/22 [Rx Confirmed 04/10/22] amlodipine 5 mg tablet 5 mg PO DAILY 30 Days #30 tab 01/30/22 [Rx Confirmed 04/10/22] fluticasone 113 mcg-salmeterol 14 mcg/actuation breath activated powdr 1 puff INHALATION Q12HR 30 Days #1 ea 01/30/22 [Rx Confirmed 04/10/22] hydrochlorothiazide 25 mg tablet 25 mg PO DAILY 30 Days #30 tab 01/30/22 [Rx Confirmed 04/10/22] levothyroxine 112 mcg tablet (Synthroid) 112 mcg PO SuTuThSa@0630 30 Days #18 tab 01/30/22 [Rx Confirmed 04/10/22] levothyroxine 125 mcg tablet 125 mcg PO MoWeFr@0630 30 Days #13 tab 01/30/22 [Rx Confirmed 04/10/22] potassium chloride 20 mEq tablet,extended release(part/cryst) (Klor-Con M) 20 meq PO DAILY 30 Days #30 tab 01/30/22 [Rx Confirmed 04/10/22] prednisone 20 mg tablet 60 mg PO DAILY 30 Days #90 tab 01/30/22 [Rx Confirmed 04/10/22] lorazepam 0.5 mg tablet 0.5 mg PO HS PRN 30 Days #30 tab 02/24/22 [Rx Confirmed 04/10/22] meclizine 25 mg tablet 25 mg PO DAILY 02/24/22 [History Confirmed 04/10/22] Dictated By: Bertha Christianson II, DO DD/ 105 Signed By: <Electronically signed by Bertha Christianson II, DO> 04/10/22 [address] [facility] Work Phone: 1(582) 910-320306-24-2022 Progress note Author Sherrie Melissa [facility] April 10, 2022 11:34am Note Date/Time April 07, 2022 10:4 5am [facility] [place] [address] Rad Onc Follow Up Note - OP Signed Patient: Melida Valerio MR#: [id number] : 1940 Acct:[id number] Age/Sex: 81 / F Type: REG RCR Copies to: Wong Espino,DO Bertha Johnson II, DO~ Assessment & Plan (2) Non-small cell lung cancer (NSCLC) Plan: 1. Referral to Pulm (placed by Med Onc) for evaluation for non oncologic cause of SOB- await their input. 2. Await PFT and RTC in 3 mos Assessment: 81-year-old female with 2 oncologic diagnoses: 1. 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 breast cancer in 2008 treated with lumpectomy and radiation in [place], [place]. She completed concurrent chemoradiation for lung cancer to a dose of 60 Wayne in 30 fractions in September 2021 under the care of Dr. Solorio. Since that time she was initiated on maintenance Durvalumab however this was held early in 2021 secondary to toxicity requiring hospitalization. Repeat PET/CT in Novemberhowed an radiographic complete response. I reviewed her recent CT scans of thechest abdomen and pelvis from February and concur with radiology there is no clear evidence of progressive disease. I concur with medical oncology regarding the referral for PFTs and pulmonology evaluation. If the shortness of breath was related to radiation pneumonitis that should have resolved with the high-dose steroids over the past month. In addition there is no radiographic correlate to radiation pneumonitis in her lungs have minimal scarring when I reviewed her CT scans and compare them to herpretreatment PET. Patient also has a history of autoimmune disease which could be another possible etiology. Would like to see her back in 3 months and await pulmonology input. Follow Up Note - Narrative 81-year-old female with: 1. 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 prior history of breast cancer in 2008 treated with lumpectomy and radiation in [place], [place]. She presented with shortness of breath in May 2021. Per the notes She went tot ER at [facility] and a chest CT scan showed right midlung consolidation. Bronchoscopy 05/30/2021 confirming endobronchial mass in the lateral segment of the right middle lobe. Biopsy confirmed squamous cell carcinoma, moderate to poorly differentiated. Patient's pulmonary function test in December 2020 showed a FEV1 of 1.95 L in the right middle lobe only comprise 11% of the total lung capacity. She also had a 2cm left adrenal nodule on the CT scan - biopsy negative She had a PET CT scan which showed increased FDG uptake in the right middle lobe extending to the right hilar area. Her EBUS and subcarinal node biopsies were reported negative. Patient received definitive concurrent chemoradiation to a dose of 60 Wayne in 30fractions completed in September 2021. Radiation was delivered under the care ofDr. Solorio. She received carboplatin and paclitaxol followed by maintenance durvalumab. Post treatment PET/CT 11/2021 [facility]. Durvalumab changed to monthly - received 1 dose on: 12/07/2021 At her last Med Onc follow up in February 2022 durvalumab was held for concern for immunotherapy related neurologic toxicity. 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 01/11/22 Brain MRI no evidence of intracranial metastasis or other acute changes. She had hospitalization for this including prolonged stay in the TCU. Ultimately she was discharged home She is maintained on prednisone 40 mg p.o. daily as of 02/24/2022. She also has a history of severe and recurrent C. difficile infection. She returns to clinic today for follow-up having undergone repeat scans on February 22 that showed no significant significant change in the chest abdomen or pelvis. There was no CT evidence of progression of disease. She continues to report shortness of breath and states she has tapered the prednisone down to 20 mg daily. She reports dyspnea on exertion and does require intermittent use of her home O2. Physical Exam: General: alert and oriented male in no acute distress HEENT: normocephalic, extra ocular movements intact, clear OP Lungs: normal work of breathing on room air, CTAB, no w/r/r Lymph: No palpable cervical nor supraclavicular lymphadenopathy Abdomen: non acute MSK: extremities within normal limits Neuro: grossly intact Dictated By: Sherrie Melissa MD DD/ 1044 Signed By: <Electronically signed by Sherrie Melissa MD> 04/10/22 [address] [facility] Work Phone: 1([phone]) 850-155906-24-2022 Progress note Author Sherrie Melissa [facility] June 13, 2022 9:07am Note Date/Time April 07, 2022 10:4 5am [facility] [place] [address] Rad Onc Follow Up Note - OP Signed with Addenda Patient: Melida Valerio MR#: [id number] : 1940 Acct:[id number] Age/Sex: 81 / F Type: REG RCR Copies to: Wong Espino,DO Hiral Mccarty, DO Bertha Christianson, II, DO~ ADDENDUM1 DOS 04/10/22 Addendum Dictated By: Sherrie Melissa MD Addendum Signed By: 06/13/22906 Addendum Cosigned By: DD/ TD/TT: 06/13/22 Assessment & Plan (2) Non-small cell lung cancer (NSCLC) Plan: 1. Referral to Pulm (placed by Med Onc) for evaluation for non oncologic cause of SOB- await their input. 2. Await PFT and RTC in 3 mos Assessment: 81-year-old female with 2 oncologic diagnoses: 1. 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 breast cancer in 2008 treated with lumpectomy and radiation in [place], [place]. She completed concurrent chemoradiation for lung cancer to a dose of 60 Wayne in 30 fractions in September 2021 under the care of Dr. Solorio. Since that time she was initiated on maintenance Durvalumab however this was held early in 2021 secondary to toxicity requiring hospitalization. Repeat PET/CT in Novemberhowed an radiographic complete response. I reviewed her recent CT scans of thechest abdomen and pelvis from February and concur with radiology there is no clear evidence of progressive disease. I concur with medical oncology regarding the referral for PFTs and pulmonology evaluation. If the shortness of breath was related to radiation pneumonitis that should have resolved with the high-dose steroids over the past month. In addition there is no radiographic correlate to radiation pneumonitis in her lungs have minimal scarring when I reviewed her CT scans and compare them to herpretreatment PET. Patient also has a history of autoimmune disease which could be another possible etiology. Would like to see her back in 3 months and await pulmonology input. Follow Up Note - Narrative 81-year-old female with: 1. 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 prior history of breast cancer in 2008 treated with lumpectomy and radiation in [place], [place]. She presented with shortness of breath in May 2021. Per the notes She went tot ER at [facility] and a chest CT scan showed right midlung consolidation. Bronchoscopy 05/30/2021 confirming endobronchial mass in the lateral segment of the right middle lobe. Biopsy confirmed squamous cell carcinoma, moderate to poorly differentiated. Patient's pulmonary function test in December 2020 showed a FEV1 of 1.95 L in the right middle lobe only comprise 11% of the total lung capacity. She also had a 2 cm left adrenal nodule on the CT scan - biopsy negative She had a PET CT scan which showed increased FDG uptake in the right middle lobe extending to the right hilar area. Her EBUS and subcarinal node biopsies were reported negative. Patient received definitive concurrent chemoradiation to a dose of 60 Wayne in 30fractions completed in September 2021. Radiation was delivered under the care ofDr. Solorio. She received carboplatin and paclitaxol followed by maintenance durvalumab. Post treatment PET/CT 11/2021 [facility]. Durvalumab changed to monthly - received 1 dose on: 12/07/2021 At her last Med Onc follow up in February 2022 durvalumab was held for concern for immunotherapy related neurologic toxicity. 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 01/11/22 Brain MRI no evidence of intracranial metastasis or other acute changes. She had hospitalization for this including prolonged stay in the TCU. Ultimately she was discharged home She is maintained on prednisone 40 mg p.o. daily as of 02/24/2022. She also has a history of severe and recurrent C. difficile infection. She returns to clinic today for follow-up having undergone repeat scans on February 22 that showed no significant significant change in the chest abdomen or pelvis. There was no CT evidence of progression of disease. She continues to report shortness of breath and states she has tapered the prednisone down to 20 mg daily. She reports dyspnea on exertion and does require intermittent use of herhome O2. Physical Exam: General: alert and oriented male in no acute distress HEENT: normocephalic, extra ocular movements intact, clear OP Lungs: normal work of breathing on room air, CTAB, no w/r/r Lymph: No palpable cervical nor supraclavicular lymphadenopathy Abdomen: non acute MSK: extremities within normal limits Neuro: grossly intact Dictated By: Sherrie Melissa MD DD/ 1044 Signed By: <Electronically signed by Sherrie Melissa MD> 04/10/22 [address] [facility] Work Phone: 1([phone]) 613-404705-15-2022 Progress note Author Bertha Christianson [facility] February 26, 2022 12:22pm Note Date/Time February 24, 2022 10:38 am [facility] [place] [address] Hem/Onc Follow Up Note - OP Signed Patient: Melida Valerio MR#: [id number] : 1940 Acct:[id number] Age/Sex: 81 / F Type: REG RCR Copies to: Wong Espino,ATIYA Johnson Date of Service: 02/24/2022 Time of Service: 10:38 - Assessment & Plan (1) 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 Plan: 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 Stage IIB negative EBUS, negative adrenal nodule biopsy Completed concurrent chemoradiation for her cancer carboplatin and paclitaxol jul through sep 2021. followed by maintenance durvalumab. Started maintenance durvalumab (received 2 doses - 2 weeks apart) 10 mg/kg dosing- given 10/26/2021 and 11/09/2021. PET/CT 11/2021 [facility]. -- therapy changed to monthly dosing (Q 4 weeks - 1500 mg) - received 1 dose on:12/07/2021 Currently being held for concern for immunotherapy related neurologic toxicity. 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 Brain MRI was essentially negative; with no evidence of intracranial metastasis or other acute changes. She had hospitalization for this including prolonged stay in the TCU. Ultimately she is discharged home and is getting stronger maintains prednisone 40 mg p.o. daily as of 02/24/2022. She also has a history of severe and recurrent C. difficile infection. Follow Up Instructions: f/u with me in 6 weeks. keep on prednisone 40. cbc, cmp, cea at f/u. - History of Present Illness Chief Complaint: Patient is here for a 6 week follow up with CT scans and labs 02/22/2022 for review. She is taking Bactrim for 3 more days for a UTI. No concerns voiced at this time. HPI: 81-year-old female referred from Dr. Mccarty whom I previously followed at [facility] for breast cancer. Past medical history includes hypertension, chronic venous insufficiency, gastroesophageal reflux disease, type 2 diabetes, quit smoking in 1999, pernicious anemia, hypothyroidism, iron deficiency anemia, paroxysmal atrial fibrillation, hyperlipidemia, chronic bronchitis.. She had a hysterectomy and nephrectomy in her 20s for endometriosis. Outpatient medications include ProAir, levothyroxine, hydrochlorothiazide, amlodipine, montelukast, amiodarone. DEXA scan from 2018 shows osteopenia in the hip and normal in the spine echocardiogram from May 2019 shows ejection fraction of greater than 55%, no significant wall motion abnormalities and mild diastolic dysfunction. Slightly elevated right-sided pressures. No significant valvular abnormalities. She does have a sister with breast cancer in her 40s, mother sister had breast cancer in her 70s, mother's other sister had breast cancer in her 70s, mother had breast cancer in her 50s. Melida has 2 adopted children. She was diagnosed with ER/WA positive HER-2 negative breast cancer in 2009 at a hospital in [place]. She got adjuvant radiotherapy following lumpectomy. She did not get chemotherapy and refused adjuvant tamoxifen and has been monitored since. CAT scan of the chest from January 2017 showed no evidence of disease. She followed up with mammograms regularly and they were all normal. She had some short of breath since December 2020. In late April she noted a slight right upper quadrant pain. Worse with deep breathing. She went to ER on 05/16/21. She had XR with R sided consolidation. and A CT of the abdomen and pelvis from May 16, 2021 with IV contrast shows normallung bases, normal liver, pancreas, gallbladder, spleen. Left adrenal 2 cm nodule, normal kidneys, bladder, bowel, peritoneum. No enlarged lymph nodes. No abnormalities in the bones. She was admitted to the hospital and had CT chest next day which noted a large mass. Some dry irritating cough. She was discharged and f/u with dr. mccarty. She had a bronchoscopy on 05/30/[address] Mccarty. Found an endobronchial mass in the lateral segment of the right middle lobe. 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 Negative for TTF-1 and positive for P 40. She had pulmonary function studies in December 2020 with an FEV1 of 1.95 L in the right middle lobe only comprises 11% of the total lung capacity. She has not yet had PET/CT. had EBUS Dr. JOHNSON. Nodes all negative adrenal biopsy negative. PET/CT with disease localized, few nodes curious. 10/17/2021: Patient reports for post treatment follow up visit. 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 Towards the end of treatment she was diagnosed with C diff colitis treated first with oral Vancomycin and then Flagyl. Clinically, she is much improved. No further episodes of diarrhea. She appears non toxic. She is approximately 1 month out from treatment; she reports no significant or new issues other than dry, sometimes productive cough. Worse during the day; denies shortness of breath, sputum production, dysphagia, fever/chills, or hemoptysis. Plan to initiate maintenance Durvalumab as soon as insurance approves. She will need post treatment scan, as well. Will arrange for PET/CT scan in ~ 5 weeks with follow up thereafter. 11/09/21 she is feeling much better today, has not had diarrhea in 2 days. almost feels like she may be getting constipated she admits to not staying hydrated today and yesterday, so we encouraged her to push more fluids, which may help with her bowels as well she denies any other complaints, tolerating the fidaxomycin well energy is much improved and she is cooking again will get durvalumab today 11/29/21 she has some chest soreness, some cough. overall doing well. PET/CT with great outcome. 11/28/21 NO RESIDUAL RIGHT MIDDLE LOBE MASS OR PATHOLOGIC ADENOPATHY. SUBCUTANEOUS NODULE IN THE RIGHT LABIAL REGION, POSSIBLYA SEBACEOUS CYST. CLINICAL CORRELATION IS RECOMMENDED. on durvalumab x 1 month. will continue for 12 month. pooping is good. She does not have any more diarrhea. 01/16/2022: Melida is here for add on visit due to multiple issues prior to next cycle of maintenance Durvalumab. 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 The patient reports a rather complicated clinical course over the past several weeks. To briefly summarize, the patient reportedly had a fall at home on 11/14/2021. The patient's family reports that approximately 3 weeks after she fell; and ~ 2-3 days after last immunotherapy; she began having a multitude of complaints including headaches, dizziness, balance issues, trouble swallowing and progressive weakness in extremities x 4. The patient is markedly fatigue, reports she is not even able to bathe or dress herself; can no longer ambulate and essentially cannot do any regular ADL's that she was doing a few months ago.Of note, the patient is usually with robust performance status and this is clearly a deviation of her baseline. She reports worsening dyspnea/shortness of breath; hard to feel like she is getting adequate air. She also reports a severely dry mouth and has obvious unilateral ptosis of the left eye. 02/24/22 She is doing better. She has dizziness. She is in a wheelchair today. She is scheduled for an EMG but she thinks she may cancel. Her breathing is better but still notes short of breath. Improved with albuterol inhaler. She is now able to get up and use a walker to get to the bathroom and she lays in bed and gets dressed. She notes her R arm continues to feel very heavy. Sheis just ambulating some finally with the walker this week with great difficulty. She has a lot of shaking in her R arm and cant hold her coffee or a spoon with peas on it. She continues on prednisone 40mg daily. - Physical Exam ECOG PS: 0 General : patient is alert and oriented to person place and time, no acute distress. L eye ptosis marginally improved. Neck: no JVD or thyromegaly. Lymph: no cervical, supraclavicular, axillary adenopathy. Heart: regular rate and rhythm no murmurs rubs or gallops. Abdomen: soft nontender nondistended, no hepatosplenomegaly. Lungs: cta bl, no wheezes, rales, rhonchi Extremities: no clubbing cyanosis. RUE clumsy and 5/5 strength but weaker than Lside. - Time with Patient Coordination of Care & Counseling Time: Greater than 50% of time spent with patient was for coordination of care (as documented) and [id number] counseling of patient and/or family. [facility] - Medical History Medical History: Medical History (Last Reviewed 01/21/22 @ 18:43 by NADEEM Foy) Adenomatous colon polyp Allergic rhinitis Autoimmune hypothyroidism Chronic venous insufficiency Dysuria-frequency syndrome Essential hypertension GERD (gastroesophageal reflux disease) History of left breast cancer lumpectomy, radiation treatment History of tobacco abuse Hyperlipidemia Iron deficiency anemia secondary to blood loss (chronic) snf (current) use of inhaled steroids Nicotine dependence, cigarettes, in remission Pernicious anemia Primary insomnia - Surgical History Surgical History: Surgical History (Last Reviewed 01/21/22 @ 18:43 by NADEEM Foy) History of appendectomy History of hernia repair History of hysterectomy History of left breast biopsy History of tonsillectomy - Family History Family History: Family History (Last Reviewed 01/21/22 @ 18:43 by NADEEM Foy) Other Breast cancer Pancreatic cancer Prostate cancer - Social History Smoking Status: Former smoker Tobacco Type: cigarettes Substance Use Type: None Additional Data - Additional Objective Data Height/Weight: Height 5 ft 5 in Weight 86.046 kg BSA for Today's Weight 2.04 Vital Signs: 02/24/22 10:19 Temperature 97.9 F Pulse Rate [Left Brachial] 76 Respiratory Rate 18 Blood Pressure [Left Arm] 124/64 02 Sat by Pulse Oximetry 96 Distress Screening: RN Distress Screening Start: 06/09/21 11:10 Freq: Status: Complete Protocol: Document 06/23/21 14:32 DB (Rec: 06/23/21 14:32 DB [id number]) Distress Screening Distress Score: 0 No worry/distress Distress Screening Total 0 RN Distress Screening Start: 06/09/21 11:42 Freq: Status: Active Protocol: Document 08/01/21 10:42 DB (Rec: 08/01/21 10:43 DB [id number]) Distress Screening Distress Score: 2 Physical Concerns Feeling tired or a lack of energy Emotional Concerns Feeling uncertain about the future Distress Screening Total 2 - Lab Results Diagram of Most Recent CBC and CMP 12/21/21 11:00 Labs - Last 7 Days 02/22/22 11:15: POC Creatinine 0.9, POC eGFR Amer > 60, POC eGFR Non- Afric Amer 60 - Home Medications and Allergies Allergies/Adverse Reactions: Allergies RADHA Inhibitors Allergy (Verified 02/24/22 10:19) Unknown Reaction erythromycin base Allergy (Verified 02/24/22 10:19) Unknown Reaction rivaroxaban [From Xarelto] Allergy (Verified 02/24/22 10:19) Unknown Reaction tiotropium [From Spiriva with HandiHaler] Allergy (Verified 02/24/22 10:19) Unknown Reaction Home Medications: Home Medications acetaminophen 500 mg tablet 500 mg PO Q4H PRN #0 tab 01/30/22 [Rx Confirmed 02/24/22] albuterol sulfate 90 mcg/actuation aerosol inhaler (Ventolin HFA) 2 puff INHALATION Q4H PRN 30 Days #1 ea 01/30/22 [Rx Confirmed 02/24/22] amiodarone 200 mg tablet 200 mg PO DAILY 30 Days #30 tab 01/30/22 [Rx Confirmed 02/24/22] amlodipine 5 mg tablet 5 mg PO DAILY 30 Days #30 tab 01/30/22 [Rx Confirmed 02/24/22] fluticasone 113 mcg-salmeterol 14 mcg/actuation breath activated powdr 1 puff INHALATION Q12HR 30 Days #1 ea 01/30/22 [Rx Confirmed 02/24/22] hydrochlorothiazide 25 mg tablet 25 mg PO DAILY 30 Days #30 tab 01/30/22 [Rx Confirmed 02/24/22] levothyroxine 112 mcg tablet (Synthroid) 112 mcg PO SuTuThSa@0630 30 Days #18 tab 01/30/22 [Rx Confirmed 02/24/22] levothyroxine 125 mcg tablet 125 mcg PO MoWeFr@0630 30 Days #13 tab 01/30/22 [Rx Confirmed 02/24/22] potassium chloride 20 mEq tablet,extended release(part/cryst) (Klor-Con M) 20 meq PO DAILY 30 Days #30 tab 01/30/22 [Rx Confirmed 02/24/22] prednisone 20 mg tablet 60 mg PO DAILY 30 Days #90 tab 01/30/22 [Rx Confirmed 02/24/22] lorazepam 0.5 mg tablet 0.5 mg PO HS PRN 30 Days #30 tab 02/24/22 [Rx] meclizine 25 mg tablet 25 mg PO DAILY 02/24/22 [History Confirmed 02/24/22] Dictated By: Bertha Christianson II, DO DD/ 1038 Signed By: <Electronically signed by Bertha Christianson II, DO> 02/26/22 1222 [facility] Work Phone: 1([phone]) 678-271204-18-2022 Progress note Author Wilfrido Argueta [facility] January 30, 2022 4:20pm Note Date/Time January 30, 2022 10: 36am [facility] [address] [place] [address] Neurology Progress Note Signed Patient: Melida Valerio MR#: [id number] : 1940 Acct:[id number] Age/Sex: 81 / F Adm Date: 2 Loc: Room: [address] [place] [address] Type : ADM IN Attending Dr: Dorian Thomason MD Copies to: ~ Date of Service: 01/30/2022 Subjective Subjective Narrative: Patient was seen and examined sitting upright in bedside chair this morning. Patient reports that her weakness in general is improving since admission. She does report some right upper extremity weakness especially in abduction and flexion at shoulder. She believes her left eyelid movement is improved. She isable to raise her eyelid on the left side more compared to the prior weeks. There is still drooping when she is not actively moving her left eyelid though. She also reports that her shortness of breath is better but still feels like shemight need oxygen and is about to do a walk study this morning. Patient does report some nausea and dizziness with head rotation to the right side. She states that her blurry vision is the same. Patient was also reporting that her dysphagia to food and liquid has returned over the past several days. Patient denies any other acute complaints or concerns at this time. Review of Systems Review of Systems Review of systems: Constitutional: Patient reports continued generalized weakness with improvement compared to prior days Cardiac: Patient reports improving shortness of breath and denies chest pain Respiratory: Patient reports improving shortness of breath Gastrointestinal: Patient denies any abdominal pain but does report some nausea with certain head movements. Neurologic: Patient reports improving generalized weakness and she states that she is able to move her left eyelid more compared to prior days Exam Physical Exam Vital Signs: Temp Pulse Resp BP Pulse Ox 97.6 F 81 16 123/76 97 01/30/22 07:30 01/30/22 07:30 01/30/22 07:30 01/30/22 07:30 01/30/22 07:30 Narrative: General -awake, AOx3, not in acute distress, sitting upright in bed, able to follow commands appropriately Cardiovascular - regular rate and rhythm with no murmurs, rubs or gallops Pulmonary - CTA b/l without RRW Gastrointestinal - abdomen is soft, nondistended, nontender, normoactive bowel sounds, there is no guarding, rebound or rigidity NEURO EXAM: Attention span/concentration wnl Speech is normal tone and speech without slurring Cranial nerve II. Visual valentin deficits noted in L eye likely secondary to left-sided ptosis Cranial nerve III, IV and . Left-sided upper eyelid ptosis, same as prior days. Patient is able to actively elevate left eyelid more than prior exams. Extraocular muscles are grossly intact. No nystagmus is appreciated Cranial nerve V and VII. No facial asymmetry is appreciated. Temperature and pinprick is equal bilaterally Cranial nerve VIII Hearing normal bilaterally Cranial nerve IX and X Speech was normal. Palate elevation equal bilaterally Cranial nerve XI Head turn side to side full range of motion. Shoulder shrug isequal bilaterally Cranial nerve XII Tongue protrudes midline MOTOR EXAM: No tremor noted at rest or with movement Normal speed of movement 4/5 muscle strength in right upper extremity and left lower extremity. Otherwise, muscle strength is 5/5 throughout. Normal muscle tone throughout SENSORY EXAM: Diminished sensation to temperature of left lower extremity compared to right. Otherwise, sensory exam with touch, vibration and temperature were grossly intact CEREBELLAR EXAM: Biaaaw-gy-cbko exam normal Yhcg-[id number]-ddrf normal REFLEX EXAM: Hypoactive bilateral patellar reflexes and normoactive upper extremity reflexes Objective Vital Signs Vital Signs: Vital Signs - 24 hr 01/29/22 15:01 01/29/22 15:30 01/29/22 17:20 Temperature 97.4 F L Pulse Rate 87 Respiratory Rate 18 Blood Pressure 124/77 02 Sat by Pulse Oximetry 96 96 94 L 01/29/22 23:47 01/30/22 05:39 01/30/22 05:56 Temperature 97.6 F Pulse Rate 88 Respiratory Rate 20 Blood Pressure 135/78 02 Sat by Pulse Oximetry 94 L 95 95 01/30/22 07:30 Temperature 97.6 F Pulse Rate 81 Respiratory Rate 16 Blood Pressure 123/76 02 Sat by Pulse Oximetry 97 Labs CBC & Chem 7: 01/28/22 05:50 01/28/22 05:50 Therapy Recommendations Therapy Recommendations: OT Recommendations OT Recommended Discharge Home with Home Health Location PT Recommendations PT Recommended Discharge Home with Outpatient Location PT Recommended Services at Physical Therapy,Occupational Therapy Discharge ST Recommendations Level of Supervision Intermittent Supervision Medication Administration Give Pills in Applesauce Dysphagia Swallow Precautions/ Sitting Upright (90 deg),Small Bites/Sips, Strategies Alternate Liquids/Solids,Sit Upright 30 Minutes Assessment/Plan (1) Ptosis of eyelid, left: Code(s): H02.402 - Unspecified ptosis of left eyelid Status: Acute (2) Generalized weakness: Code(s): R53.1 - Weakness Status: Acute Plan 81 year old woman with right lung NSCLC. She has left upper eyelid ptosis and diplopia due to dysconjugate gaze in the setting of generalized fatigue and weakness. Onset several weeks ago, though thediplopia was less apparent to her, probably because the left upper eyelid hangs low enough to cover the pupillary aperture on the left. She had some dysphagia noted a week ago which improved and now represents over the past few days according to patient. DDX:? third nerve palsy (CT and CTA unremarkable for cause), neuromuscular junction disorder (myasthenia gravis or lambert eaton because of breast cancer or because of the durvalumab) or other paraneoplastic process. MRI did not show any evidence of intracranial metastatic disease that would explain symptoms. 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 Patient has been having good improvement in her walking ability and strength since being admitted to rehab unit. Patient was initiated on IVIG for continuedcranial nerve symptomatology for total of 5 days of treatment which she tolerated well. The patient has had a 6+ week clinical course, has had recent stable respiratory parameters. Patient is clinically stable today, fairly similar exam compared to prior days, with stable negative inspiratory force and vital capacity. PLAN: Patient has completed 5-day course of IVIG.? Paraneoplastic profile and laboratory evaluation for myasthenia; pending Continue high-dose intravenous steroids. Patient has had overall improvement in muscle strength. 4/5 muscle strength in right upper extremity and left lower extremity noted today. Patient is also able to elevate her left eyelid more compared to prior days but still has ptosisof left eyelid when not actively elevating it that is similar to prior exams. Continue to monitor for dyspnea with NIF and VC, have been stable over past several days. Patient is going for a walk study today to see if she qualifies for home oxygen upon discharge. Patient is planning for discharge tomorrow. Patient is stable from a neurologicstandpoint for discharge with follow-up on outpatient basis Consider outpatient NCS/EMG Diagnosis, prognosis and treatment options discussed in detail.? All questions answered.? Patient understands and is agreeable to the plan. Attestation Statement I agree with the above. Patient seen and examined. Modestly improved left upper eyelid ptosis. Resolved diplopia. Improved neck weakness. Improved generalized weakness. 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 Now status post IV methylprednisolone and IVIG. The most commonly associated antibody with Lambert Eaton myasthenic syndrome was negative. No other inpatientrecommendations at this time. Documented By: Jarad Walters DO, RES 01/30/22 1 028 Signed By: <Electronically signed by DO JOANNE Walters> 01/30/22 1049 <Electronically signed by Wilfrido Argueta DO> 01/30/22 8632 [facility] Work Phone: 1(574) 964-725104-18-2022 Progress note Author Dorian Thomason [facility] January 30, 2022 3:05pm Note Date/Time January 30, 2022 3:0 3pm [facility] [address] [id number] Physiatry(Rehab) Progress Note Signed Patient: Melida Valerio MR#: [id number] : 1940 Acct:[id number] Age/Sex: 81 / F Adm Date: 2 Loc: 5T Room: [address] [place] [address] Type : ADM IN Attending Dr: Dorian Thomason MD Copies to: ~ Date of Service: 01/30/2022 Subjective Subjective Narrative: Ms. Valerio is a 81 year old female admitted to rehab with multifactorial functional decline in setting of NSCLC s/p chemoradiation and subsequent maintenance immunotherapy, which is now on hold. She presented directly form oncology with generalized weakness, difficulty caring for self, increased oxygen needs, noted to have some ptosis and dysphagia. Differential is broad and includes NMJ disorder. She's been treated with high dose steroids, to be maintained until outpatient f/u with oncology. She did have some dysphagia and underwent endoscopy with dilatation for esophageal spasm, noted to have mahendra esophagitis and placed on diflucan. She has recurrent c. diff, should have outpatient consult with Dr. Tran. Interval history: She feels generally well today She was surprised about her ability to ambulate from her room to the therapy gym Her chief complaint today is some right-sided neck weakness, this is not new She is anxious, but also excited to be discharged home tomorrow Review of Systems Constitutional Constitutional: Reports system reviewed and no additional complaints, except as documented, Reports fatigue, Reports frequent falls and Reports weakness Eyes Eyes: Reports system reviewed and no additional complaints, except as documented Comments: + left ptosis ENT Ears, Nose, Mouth, and Throat: Reports system reviewed and no additional complaints, except as documented and Reports disequilibrium Comments: pain with swallowing Cardiovascular Cardiovascular: Reports system reviewed and no additional complaints, except as documented Respiratory Respiratory: Reports system reviewed and no additional complaints, except as documented Gastrointestinal Gastrointestinal: Reports system reviewed and no additional complaints, except as documented and Reports abdominal pain Genitourinary Genitourinary: Reports system reviewed and no additional complaints, except as documented Musculoskeletal Musculoskeletal: Reports system reviewed and no additional complaints, except asdocumented and Reports abnormal gait Integumentary/Breasts Skin/Breast: Reports system reviewed and no additional complaints, except as documented Neurologic Neurologic: Reports system reviewed and no additional complaints, except as documented, Reports abnormal gait, Reports disequilibrium, Reports frequent falls, Reports paresthesias and Reports weakness Psychiatric Psychiatric: Reports system reviewed and no additional complaints, except as documented Endocrine Endocrine: Reports fatigue Exam Physical Exam Vital Signs: Temp Pulse Resp BP Pulse Ox 97.6 F 81 16 123/76 94 L 01/30/22 07:30 01/30/22 07:30 01/30/22 07:30 01/30/22 07:30 01/30/22 09:30 Const General: cooperative and no acute distress Orientation: alert, awake and oriented x3 HEENT Head: abrasion and contusion Resp Effort & Inspection: normal respiratory effort Auscultation: clear to auscultation bilaterally GI Inspection: normal to inspection Neuro Cognition: normal cognition Speech: speech normal Gait: ataxic Motor: strength abnormal (4/5 RUE, LLE) Sensory Exam: other (abnormal stocking glove distribution) Objective Labs CBC & Chem 7: 01/28/22 05:50 01/28/22 05:50 Medications and Allergies Allergies and Active Meds: Allergies RADHA Inhibitors Allergy (Verified 01/16/22 14:42) Unknown Reaction erythromycin base Allergy (Verified 01/16/22 14:42) Unknown Reaction rivaroxaban [From Xarelto] Allergy (Verified 01/16/22 14:42) Unknown Reaction tiotropium [From Spiriva with HandiHaler] Allergy (Verified 01/16/22 14:42) Unknown Reaction Active Medications Generic Name Dose Route Start Last Admin Trade Name Freq PRN Reason Stop Dose Admin Acetaminophen 500 mg 01/20/22 19:11 01/30/22 13:22 Acetaminophen 500 Mg Tablet PO 01/20/23 19:10 500 mg Q4H PRN Administration Pain Al Hydrox/Mg Hydrox/Simethicone 30 ml 01/20/22 19:11 Mag Hydrox/Al Hydrox/Simeth 30 Ml Udc PO 01/20/23 19:10 Q4H PRN Indigestion Albuterol 2 puff 01/20/22 19:01 01/29/22 17:19 Albuterol Hfa 60 Puff/8 Gram Inhaler INHALATION 01/20/23 19:00 2 puff Q4H PRN Administration Dyspnea Amiodarone HCl 200 mg 01/21/22 09:00 01/30/22 08:42 Amiodarone 200 Mg Tablet PO 01/21/23 08:59 200 mg DAILY ALEXA Administration Amlodipine Besylate 5 mg 01/21/22 09:00 01/30/22 08:43 Amlodipine 5 Mg Tablet PO 01/21/23 08:59 5 mg DAILY ALEXA Administration Aspirin 81 mg 01/24/22 11:40 01/30/22 08:45 Aspirin 81 Mg Tablet. PO 01/24/23 11:39 81 mg DAILY ALEXA Administration Bisacodyl 10 mg 01/20/22 19:11 Bisacodyl 10 Mg Supp.Rect WA 01/20/23 19:10 DAILY PRN Constipation Cyanocobalamin 5,000 mcg 01/21/22 09:00 01/30/22 08:42 Cyanocobalamin 1,000 Mcg Tablet PO 01/21/23 08:59 5,000 mcg DAILY ALEXA Administration Docusate Sodium 100 mg 01/20/22 19:11 01/28/22 22:24 Docusate 100 Mg Capsule PO 01/20/23 19:10 100 mg BID PRN Administration Constipation Docusate Sodium 283 mg 01/20/22 19:11 Docusate Enema 283 Mg/5 Ml Enema WA 01/20/23 19:10 DAILY PRN Constipation Fluconazole 100 mg 01/21/22 09:00 01/30/22 08:42 Fluconazole 100 Mg Tablet PO 02/04/22 08:59 100 mg QAM ALEXA Administration Hydrochlorothiazide 25 mg 01/21/22 09:00 01/30/22 08:42 Hydrochlorothiazide 25 Mg Tablet PO 01/21/23 08:59 25 mg DAILY ALEXA Administration Lactulose 30 gm 01/20/22 19:11 Lactulose 20 Gm/30 Ml Udc PO 01/20/23 19:10 DAILY PRN Constipation Levothyroxine Sodium 112 mcg 01/21/22 06:30 01/29/22 05:51 Levothyroxine 112 Mcg Tablet PO 01/21/23 06:29 112 mcg SuTuThSa@0630 ALEXA Administration Levothyroxine Sodium 125 mcg 01/23/22 06:30 01/30/22 05:40 Levothyroxine 125 Mcg Tablet PO 01/23/23 06:29 125 mcg MoWeFr@0630 ALEXA Administration Lorazepam 0.5 mg 01/20/22 19:01 01/29/22 21:17 Lorazepam 0.5 Mg Tablet PO 07/19/22 19:00 0.5 mg HS PRN Administration Sleep Potassium Chloride 20 meq 01/21/22 09:00 01/30/22 08:40 Potassium Chloride Er 20 Meq Tab.Er.Prt PO 01/21/23 08:59 20 meq DAILY ALEXA Administration Prednisone 60 mg 01/21/22 09:00 01/30/22 08:42 Prednisone 20 Mg Tablet PO 02/04/22 08:59 60 mg DAILY ALEXA Administration Fluticasone/Salmeterol 1 puff 01/20/22 21:00 01/30/22 05:33 Fluticasone/Salmeterol 113-14 Mcg 60 Puff Inhaler INHALATION 01/20/23 20:59 1 puff Q12HR ALEXA Administration Sennosides 2 tab 01/21/22 12:00 Sennosides 8.6 Mg Tablet PO 01/21/23 11:59 DAILY@12 PRN If no BM in 2 days Sodium Chloride 0 ml 01/20/22 19:11 01/27/22 18:34 Sodium Chloride 0.9 % 10 Ml Syringe IV-PUSH 01/20/23 19:10 10 ml PRN PRN Administration Flush Sodium Chloride 10 ml 01/21/22 06:00 01/30/22 14:16 Sodium Chloride 0.9 % 10 Ml Syringe IV-PUSH 01/21/23 05:59 10 ml Q8H ALEXA Administration Assessment/Plan Assessment/Plan (1) Generalized weakness: Code(s): R53.1 - Weakness Status: Acute (2) Dysphagia: Code(s): R13.10 - Dysphagia, unspecified Status: Acute (3) Ptosis of eyelid, left: Code(s): H02.402 - Unspecified ptosis of left eyelid Status: Acute (4) Diplopia: Code(s): H53.2 - Diplopia Status: Acute (5) Neuropathy: Code(s): G62.9 - Polyneuropathy, unspecified Status: Acute (6) Clostridium difficile infection: Code(s): A49.8 - Other bacterial infections of unspecified site Status: Acute (7) Minor closed head injury: Code(s): S00.90XA - Unspecified superficial injury of unspecified part of head, initial encounter Status: Acute (8) Non-small cell lung cancer (NSCLC): Code(s): C34.90 - Malignant neoplasm of unspecified part of unspecified bronchus or lung Status: Acute (9) Mahendra esophagitis: Code(s): B37.81 - Candidal esophagitis Status: Acute (10) Impaired mobility and activities of daily living: Code(s): Z74.09 - Other reduced mobility; Z78.9 - Other specified health status Status: Acute (11) Peripheral polyneuropathy: Code(s): G62.9 - Polyneuropathy, unspecified Status: Acute Plan Ms. 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 setting of radiation therapy, depending on location of that, postural re-education, could consider outpatient bracing if needed Hospitalist to assist with management of comorbid medical conditions Pain control: Continue current management Bowel and bladder: Monitor for loose stools, has h/o some urinary incontinence Skin: Pressure ulcer prophylaxis, monitor abrasions/hematoma DVT prophylaxis: Continue lovenox Functional status: Ambulating 120 feet maintaining SPO2 over 90% Discharge planning: Home on 01/31/2022. Documented By: Dorian Thomason MD 01/30/22 1508 Signed By: <Electronically signed by Dorian Thomason MD> 01/30/22 0307 [facility] Work Phone: 1(262) 820-353404-16-2022 Progress note Author Bob Dangelo [facility] January 28, 2022 8:23pm Note Date/Time January 28, 2022 4:0 8pm [facility] [address] [place] [address] Hospitalist Progress Note Signed Patient: Melida Valerio MR#: [id number] : 1940 Acct:[id number] Age/Sex: 81 / F Adm Date: 2 Loc: Room: [address] [place] [address] Type : ADM IN Attending Dr: Dorian Thomason MD Copies to: ~ Date of Service: 01/28/2022 Subjective Subjective Narrative: Patient is seen and examined with spouse at bedside. Nursing reports pt c/o extreme fatigue and dyspnea this morning. On exam, patient states she felt extremely weakn and fatigued today. She felt lightheaded with position changes. She states that despite her fatigue, she pushed through and did her recommended exercises outside of therapy hours. She asks if she should rest when she feels such profound fatigue. Encouraged patient to rest at those times and see if it helped her fatigue. Her vitals are quite stable and she is maintaing stable saturations. Currently on O2 at 1L/min/NC. At present, she reports she feels much better than earlier today. She denies headache or dizziness. No chestpain or shortness of breath. No abdominal pain or nausea. Appetite has been poor. Feels anxious about going home this week. Exam Physical Exam Vital Signs: Temp Pulse Resp BP Pulse Ox 36.6 C 84 22 122/71 96 01/28/22 15:32 01/28/22 15:32 01/28/22 15:32 01/28/22 15:32 01/28/22 15:32 Const General: cooperative and comfortable Orientation: alert, awake and oriented x3 HEENT Head: normocephalic and atraumatic Eyes Eyelids: eyelid abnormality left upper eyelid ptosis Neck Neck: normal visual inspection Chest Chest palpation & inspection: normal inspection of the chest Resp Effort & Inspection: normal respiratory effort, able to speak in complete sentences and symmetric chest movement Auscultation: diminished lung sounds, no rhonchi and no wheezes Cardio Rate: regular rate Rhythm: regular rhythm Heart Sounds: S1 normal and S2 normal GI Inspection: normal to inspection Palpation: soft and nontender Auscultation: normal bowel sounds General: deferred Neuro General: patient alert, patient awake, patient oriented x3, moves all extremities and no focal motor deficits Cranial Nerves: EOM intact bilaterally, no nystagmus, able to smile, able to blink, facial strength normal, hearing normal, speech unremarkable, able to rotate head bilaterally, able to elevate shoulders bilaterally, tongue midline and other (Left eye ptosis) Cognition: normal cognition Speech: speech normal Extrem General: no clubbing, cyanosis or edema and no calf tenderness Objective Lab Results CBC & Chem 7: 01/28/22 05:50 01/28/22 05:50 ABG Interpretation ABG results: 01/21/22 01/28/22 05:53 05:50 Carbon Dioxide 30.1 H 31.8 H Meds Allergies and Active Meds Allergies RADHA Inhibitors Allergy (Verified 01/16/22 14:42) Unknown Reaction erythromycin base Allergy (Verified 01/16/22 14:42) Unknown Reaction rivaroxaban [From Xarelto] Allergy (Verified 01/16/22 14:42) Unknown Reaction tiotropium [From Spiriva with HandiHaler] Allergy (Verified 01/16/22 14:42) Unknown Reaction Active Meds: Active Medications Generic Name Dose Route Start Last Admin Trade Name Freq PRN Reason Stop Dose Admin Acetaminophen 500 mg 01/20/22 19:11 01/27/22 22:43 Acetaminophen 500 Mg Tablet PO 01/20/23 19:10 500 mg Q4H PRN Administration Pain Al Hydrox/Mg Hydrox/Simethicone 30 ml 01/20/22 19:11 Mag Hydrox/Al Hydrox/Simeth 30 Ml Udc PO 01/20/23 19:10 Q4H PRN Indigestion Albuterol 2 puff 01/20/22 19:01 01/27/22 05:27 Albuterol Hfa 60 Puff/8 Gram Inhaler INHALATION 01/20/23 19:00 2 puff Q4H PRN Administration Dyspnea Amiodarone HCl 200 mg 01/21/22 09:00 01/28/22 09:51 Amiodarone 200 Mg Tablet PO 01/21/23 08:59 200 mg DAILY ALEXA Administration Amlodipine Besylate 5 mg 01/21/22 09:00 01/28/22 09:52 Amlodipine 5 Mg Tablet PO 01/21/23 08:59 5 mg DAILY ALEXA Administration Aspirin 81 mg 01/24/22 11:40 01/28/22 09:51 Aspirin 81 Mg Tablet.Dr PO 01/24/23 11:39 81 mg DAILY ALEXA Administration Bisacodyl 10 mg 01/20/22 19:11 Bisacodyl 10 Mg Supp.Rect WA 01/20/23 19:10 DAILY PRN Constipation Cyanocobalamin 5,000 mcg 01/21/22 09:00 01/28/22 09:51 Cyanocobalamin 1,000 Mcg Tablet PO 01/21/23 08:59 5,000 mcg DAILY ALEXA Administration Docusate Sodium 100 mg 01/20/22 19:11 01/27/22 08:29 Docusate 100 Mg Capsule PO 01/20/23 19:10 100 mg BID PRN Administration Constipation Docusate Sodium 283 mg 01/20/22 19:11 Docusate Enema 283 Mg/5 Ml Enema WA 01/20/23 19:10 DAILY PRN Constipation Fluconazole 100 mg 01/21/22 09:00 01/28/22 09:52 Fluconazole 100 Mg Tablet PO 02/04/22 08:59 100 mg QAM ALEXA Administration Hydrochlorothiazide 25 mg 01/21/22 09:00 01/28/22 09:51 Hydrochlorothiazide 25 Mg Tablet PO 01/21/23 08:59 25 mg DAILY ALEXA Administration Lactulose 30 gm 01/20/22 19:11 Lactulose 20 Gm/30 Ml Udc PO 01/20/23 19:10 DAILY PRN Constipation Levothyroxine Sodium 112 mcg 01/21/22 06:30 01/28/22 05:12 Levothyroxine 112 Mcg Tablet PO 01/21/23 06:29 112 mcg [email or web address] ALEXA Administration Levothyroxine Sodium 125 mcg 01/23/22 06:30 01/27/22 07:41 Levothyroxine 125 Mcg Tablet PO 01/23/23 06:29 Not Given [email or web address] ALEXA Lorazepam 0.5 mg 01/20/22 19:01 01/27/22 22:43 Lorazepam 0.5 Mg Tablet PO 07/19/22 19:00 0.5 mg HS PRN Administration Sleep Potassium Chloride 20 meq 01/21/22 09:00 01/28/22 09:51 Potassium Chloride Er 20 Meq Tab.Er.Prt PO 01/21/23 08:59 20 meq DAILY ALEXA Administration Prednisone 60 mg 01/21/22 09:00 01/28/22 09:52 Prednisone 20 Mg Tablet PO 02/04/22 08:59 60 mg DAILY ALEXA Administration Fluticasone/Salmeterol 1 puff 01/20/22 21:00 01/28/22 06:29 Fluticasone/Salmeterol 113-14 Mcg 60 Puff Inhaler INHALATION 01/20/23 20:59 1 puff Q12HR ALEXA Administration Sennosides 2 tab 01/21/22 12:00 Sennosides 8.6 Mg Tablet PO 01/21/23 11:59 DAILY@12 PRN If no BM in 2 days Sodium Chloride 0 ml 01/20/22 19:11 01/27/22 18:34 Sodium Chloride 0.9 % 10 Ml Syringe IV-PUSH 01/20/23 19:10 10 ml PRN PRN Administration Flush Sodium Chloride 10 ml 01/21/22 06:00 01/28/22 14:18 Sodium Chloride 0.9 % 10 Ml Syringe IV-PUSH 01/21/23 05:59 10 ml Q8H ALEXA Administration Sucralfate 1 gm 01/20/22 22:00 01/28/22 14:18 Sucralfate Susp 1 Gm/10 Ml Udc PO 01/20/23 21:59 Not Given TID.AC. ALEXA A&P - Hospitalist Assessment/Plan (1) Peripheral polyneuropathy: (2) Essential hypertension: (3) Mahendra esophagitis: (4) Dysphagia: (5) Generalized weakness: (6) Ptosis of eyelid, left: (7) Diplopia: (8) History of breast cancer: (9) Clostridium difficile infection: (10) Non-small cell lung cancer (NSCLC): Plan Generalized weakness NSCLC s/p chemo/radiation, immunotherapy (on hold) Peripheral polyneuropathy Left eye ptosis ?Further POC per PMR team rehabilitative therapy, pain control and bowel regimen, DVT prophylaxis ?Continues high-dose steroid, oncology following ?Neurology following. Continue monitoring NIF and VC. IVIG 01/23?01/27 -Will need walk test and nocturnal pulse oximetry prior to DC Recurrent C. difficile infection ?No diarrhea noted during medical admission. Continues on vancomycin Dysphagia Esophageal candidiasis ?s/p EGD with esophageal dilation ?Continue Diflucan through 02/04 sucralfate Chronic conditions: 1. Hypertension?amlodipine, HCTZ. BPs reviewed and controlled 2. A. fib?amiodarone. Last rhythm strip 01/23 sinus rhythm 3. COPD?inhalers, albuterol as needed. Comorbid NSCLC, requiring oxygen 4. Hypothyroidism?levothyroxine. TSH 1.96 01/20/2022 Documented By: NADEEM Foy 01/28/22 1 608 Signed By: <Electronically signed by NADEEM Balderrama> 01/28/225 <Electronically signed by Bob Dangelo MD> 01/28/222022 [facility] Work Phone: 1(525) 235-330204-16-2022 Progress note Author Dorian Thomason [facility] January 28, 2022 1:08pm Note Date/Time January 28, 2022 1:0 8pm [facility] [address] [place] [address] Physiatry(Rehab) Progress Note Signed Patient: Melida Valerio MR#: [id number] : 1940 Acct:[id number] Age/Sex: 81 / F Adm Date: 2 Loc: Room: 9C8655-9 Type : ADM IN Attending Dr: Dorian Thomason MD Copies to: ~ Date of Service: 01/28/2022 Subjective Subjective Narrative: Ms. Valerio is a 81 year old female admitted to rehab with multifactorial functional decline in setting of NSCLC s/p chemoradiation and subsequent maintenance immunotherapy, which is now on hold. She presented directly form oncology with generalized weakness, difficulty caring for self, increased oxygen needs, noted to have some ptosis and dysphagia. Differential is broad and includes NMJ disorder. She's been treated with high dose steroids, to be maintained until outpatient f/u with oncology. She did have some dysphagia and underwent endoscopy with dilatation for esophageal spasm, noted to have mahendra esophagitis and placed on diflucan. She has recurrent c. diff, should have outpatient consult with Dr. Tran. Interval history: Still with fatigue, especially after PT sessions. Reviewed Neuro/Oncology notes She's asking about booster dose of vaccine and about arranging home oxygen Otherwise no acute issues overnight Ambulates 70 feet with a wheeled walker and contact-guard assist, oxygen levels remained greater than 90% on 2 L. Review of Systems Constitutional Constitutional: Reports system reviewed and no additional complaints, except as documented, Reports fatigue, Reports frequent falls and Reports weakness Eyes Eyes: Reports system reviewed and no additional complaints, except as documented Comments: + left ptosis ENT Ears, Nose, Mouth, and Throat: Reports system reviewed and no additional complaints, except as documented and Reports disequilibrium Comments: pain with swallowing Cardiovascular Cardiovascular: Reports system reviewed and no additional complaints, except as documented Respiratory Respiratory: Reports system reviewed and no additional complaints, except as documented Gastrointestinal Gastrointestinal: Reports system reviewed and no additional complaints, except as documented and Reports abdominal pain Genitourinary Genitourinary: Reports system reviewed and no additional complaints, except as documented Musculoskeletal Musculoskeletal: Reports system reviewed and no additional complaints, except asdocumented and Reports abnormal gait Integumentary/Breasts Skin/Breast: Reports system reviewed and no additional complaints, except as documented Neurologic Neurologic: Reports system reviewed and no additional complaints, except as documented, Reports abnormal gait, Reports disequilibrium, Reports frequent falls, Reports paresthesias and Reports weakness Psychiatric Psychiatric: Reports system reviewed and no additional complaints, except as documented Endocrine Endocrine: Reports fatigue Exam Physical Exam Vital Signs: Temp Pulse Resp BP Pulse Ox 97.7 F 79 18 123/68 97 01/28/22 05:14 01/28/22 09:58 01/28/22 09:58 01/28/22 09:58 01/28/22 10:04 Const General: cooperative and no acute distress Orientation: alert, awake and oriented x3 HEENT Head: abrasion and contusion Resp Effort & Inspection: normal respiratory effort Auscultation: clear to auscultation bilaterally GI Inspection: normal to inspection Neuro Cognition: normal cognition Speech: speech normal Gait: ataxic Motor: strength abnormal (4/5 RUE, LLE) Sensory Exam: other (abnormal stocking glove distribution) Objective Labs CBC & Chem 7: 01/28/22 05:50 01/28/22 05:50 Labs: Laboratory Results - last 24 hr 01/28/22 01/28/22 05:50 05:50 Corrected WBC 6.5 Uncorrected WBC Count 6.5 RBC 3.98 Hgb 12.5 Hct 37.5 MCV 94.3 MCH 31.4 MCHC 33.4 RDW 13.5 Plt Count 175 MPV 6.7 Neut % (Auto) 81.6 Lymph % (Auto) 8.3 Bowie % (Auto) 9.6 Eos % (Auto) 0.2 Baso % (Auto) 0.3 Neut # (Auto) 5.3 Lymph # (Auto) 0.5 L Bowie # (Auto) 0.6 Eos # (Auto) 0.0 Baso # (Auto) 0.0 Nucleated RBC % (auto) 0.0 PHA Creatinine Clear 61.38 Sodium 137 Potassium 3.0 L Chloride 99 Carbon Dioxide 31.8 H BUN 14 Creatinine 0.67 Est GFR ( Amer) > 60 Est GFR (Non-Af Amer) > 60 Glucose 91 Calcium 8.2 Medications and Allergies Allergies and Active Meds: Allergies RADHA Inhibitors Allergy (Verified 01/16/22 14:42) Unknown Reaction erythromycin base Allergy (Verified 01/16/22 14:42) Unknown Reaction rivaroxaban [From Xarelto] Allergy (Verified 01/16/22 14:42) Unknown Reaction tiotropium [From Spiriva with HandiHaler] Allergy (Verified 01/16/22 14:42) Unknown Reaction Active Medications Generic Name Dose Route Start Last Admin Trade Name Freq PRN Reason Stop Dose Admin Acetaminophen 500 mg 01/20/22 19:11 01/27/22 22:43 Acetaminophen 500 Mg Tablet PO 01/20/23 19:10 500 mg Q4H PRN Administration Pain Al Hydrox/Mg Hydrox/Simethicone 30 ml 01/20/22 19:11 Mag Hydrox/Al Hydrox/Simeth 30 Ml Udc PO 01/20/23 19:10 Q4H PRN Indigestion Albuterol 2 puff 01/20/22 19:01 01/27/22 05:27 Albuterol Hfa 60 Puff/8 Gram Inhaler INHALATION 01/20/23 19:00 2 puff Q4H PRN Administration Dyspnea Amiodarone HCl 200 mg 01/21/22 09:00 01/28/22 09:51 Amiodarone 200 Mg Tablet PO 01/21/23 08:59 200 mg DAILY ALEXA Administration Amlodipine Besylate 5 mg 01/21/22 09:00 01/28/22 09:52 Amlodipine 5 Mg Tablet PO 01/21/23 08:59 5 mg DAILY ALEXA Administration Aspirin 81 mg 01/24/22 11:40 01/28/22 09:51 Aspirin 81 Mg Tablet.Dr PO 01/24/23 11:39 81 mg DAILY ALEXA Administration Bisacodyl 10 mg 01/20/22 19:11 Bisacodyl 10 Mg Supp.Rect WA 01/20/23 19:10 DAILY PRN Constipation Cyanocobalamin 5,000 mcg 01/21/22 09:00 01/28/22 09:51 Cyanocobalamin 1,000 Mcg Tablet PO 01/21/23 08:59 5,000 mcg DAILY ALEXA Administration Docusate Sodium 100 mg 01/20/22 19:11 01/27/22 08:29 Docusate 100 Mg Capsule PO 01/20/23 19:10 100 mg BID PRN Administration Constipation Docusate Sodium 283 mg 01/20/22 19:11 Docusate Enema 283 Mg/5 Ml Enema WA 01/20/23 19:10 DAILY PRN Constipation Fluconazole 100 mg 01/21/22 09:00 01/28/22 09:52 Fluconazole 100 Mg Tablet PO 02/04/22 08:59 100 mg QAM ALEXA Administration Hydrochlorothiazide 25 mg 01/21/22 09:00 01/28/22 09:51 Hydrochlorothiazide 25 Mg Tablet PO 01/21/23 08:59 25 mg DAILY ALEXA Administration Lactulose 30 gm 01/20/22 19:11 Lactulose 20 Gm/30 Ml Udc PO 01/20/23 19:10 DAILY PRN Constipation Levothyroxine Sodium 112 mcg 01/21/22 06:30 01/28/22 05:12 Levothyroxine 112 Mcg Tablet PO 01/21/23 06:29 112 mcg [email or web address] ALEXA Administration Levothyroxine Sodium 125 mcg 01/23/22 06:30 01/27/22 07:41 Levothyroxine 125 Mcg Tablet PO 01/23/23 06:29 Not Given [email or web address] ALEXA Lorazepam 0.5 mg 01/20/22 19:01 01/27/22 22:43 Lorazepam 0.5 Mg Tablet PO 07/19/22 19:00 0.5 mg HS PRN Administration Sleep Potassium Chloride 20 meq 01/21/22 09:00 01/28/22 09:51 Potassium Chloride Er 20 Meq Tab.Er.Prt PO 01/21/23 08:59 20 meq DAILY ALEXA Administration Prednisone 60 mg 01/21/22 09:00 01/28/22 09:52 Prednisone 20 Mg Tablet PO 02/04/22 08:59 60 mg DAILY ALEXA Administration Fluticasone/Salmeterol 1 puff 01/20/22 21:00 01/28/22 06:29 Fluticasone/Salmeterol 113-14 Mcg 60 Puff Inhaler INHALATION 01/20/23 20:59 1 puff Q12HR ALEXA Administration Sennosides 2 tab 01/21/22 12:00 Sennosides 8.6 Mg Tablet PO 01/21/23 11:59 DAILY@12 PRN If no BM in 2 days Sodium Chloride 0 ml 01/20/22 19:11 01/27/22 18:34 Sodium Chloride 0.9 % 10 Ml Syringe IV-PUSH 01/20/23 19:10 10 ml PRN PRN Administration Flush Sodium Chloride 10 ml 01/21/22 06:00 01/28/22 05:12 Sodium Chloride 0.9 % 10 Ml Syringe IV-PUSH 01/21/23 05:59 10 ml Q8H ALEXA Administration Sucralfate 1 gm 01/20/22 22:00 01/28/22 09:15 Sucralfate Susp 1 Gm/10 Ml Udc PO 01/20/23 21:59 Not Given TID.AC.HS ALEXA Assessment/Plan Assessment/Plan (1) Generalized weakness: Code(s): R53.1 - Weakness Status: Acute (2) Dysphagia: Code(s): R13.10 - Dysphagia, unspecified Status: Acute (3) Ptosis of eyelid, left: Code(s): H02.402 - Unspecified ptosis of left eyelid Status: Acute (4) Diplopia: Code(s): H53.2 - Diplopia Status: Acute (5) Neuropathy: Code(s): G62.9 - Polyneuropathy, unspecified Status: Acute (6) Clostridium difficile infection: Code(s): A49.8 - Other bacterial infections of unspecified site Status: Acute (7) Minor closed head injury: Code(s): S00.90XA - Unspecified superficial injury of unspecified part of head, initial encounter Status: Acute (8) Non-small cell lung cancer (NSCLC): Code(s): C34.90 - Malignant neoplasm of unspecified part of unspecified bronchus or lung Status: Acute (9) Mahendra esophagitis: Code(s): B37.81 - Candidal esophagitis Status: Acute (10) Impaired mobility and activities of daily living: Code(s): Z74.09 - Other reduced mobility; Z78.9 - Other specified health status Status: Acute (11) Peripheral polyneuropathy: Code(s): G62.9 - Polyneuropathy, unspecified Status: Acute Plan Ms. 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 * Oxygen study Sunday to arrange for home * Defer booster dose to Oncology, would probably favor waiting a few weeks * Discussed with Neurology. 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 setting of radiation therapy, depending on location of that, postural re-education, could consider outpatient bracing if needed Hospitalist to assist with management of comorbid medical conditions Pain control: Continue current management Bowel and bladder: Monitor for loose stools, has h/o some urinary incontinence Skin: Pressure ulcer prophylaxis, monitor abrasions/hematoma DVT prophylaxis: Continue lovenox Functional status: Ambulating 55' x 2 trials maintaining SPO2 over 90% Discharge planning: Home on 01/31/2022. Walk study before discharge. Documented By: Dorian Thomason MD 01/28/22 2843 Signed By: <Electronically signed by Dorian Thomason MD> 01/28/22 2646 [facility] Work Phone: [phone]) 409-405504-15-2022 Progress note Author Dorian Thomason [facility] January 27, 2022 9:37pm Note Date/Time January 27, 2022 2:3 9pm [facility] [address] [place] [address] Physiatry(Rehab) Progress Note Signed Patient: Melida Valerio MR#: [id number] : 1940 Acct:[id number] Age/Sex: 81 / F Adm Date: 2 Loc: Room: [address] [place] [address] Type : ADM IN Attending Dr: Dorian Thomason MD Copies to: ~ <Bety Mulligan APRN - Last Filed: 01/27/22 14:40> Date of Service: 01/27/2022 Subjective <Bety Mulligan APRN - Last Filed: 01/27/22 14:40> Subjective Narrative: Ms. Valerio is a 81 year old female admitted to rehab with multifactorial functional decline in setting of NSCLC s/p chemoradiation and subsequent maintenance immunotherapy, which is now on hold. She presented directly form oncology with generalized weakness, difficulty caring for self, increased oxygen needs, noted to have some ptosis and dysphagia. Differential is broad and includes NMJ disorder. She's been treated with high dose steroids, to be maintained until outpatient f/u with oncology. She did have some dysphagia and underwent endoscopy with dilatation for esophageal spasm, noted to have mahendra esophagitis and placed on diflucan. She has recurrent c. diff, should have outpatient consult with Dr. Tran. Interval history: She is doing well today. Overall she is feeling better. Continues to endorse shortness of breath with activity, better at rest. She remains on 2 L of oxygen with SPO2 levels in [id number]. Rest of the vital sign's are stable. She denies any pain or discomfort. Had an FI with family earlier and is pleased with her performance. Tentative discharge date is set for Sunday. I addressed hers and family's concerns and answered their questions. Neurology will evaluate her on Sunday morning before discharge. Ambulates 30 feet with a wheeled walker and contact-guard assist, oxygen levels remained greater than 90% on 2 L. Review of Systems <Bety Mulligan APRN - Last Filed: 01/27/22 14:40> Review of Systems All other systems reviewed & are negative unless noted below or in HPI Exam <Bety Mulligan APRN - Last Filed: 01/27/22 14:40> Physical Exam Vital Signs: Temp Pulse Resp BP Pulse Ox 97.1 F L 84 18 144/78 H 98 01/27/22 14:16 01/27/22 14:16 01/27/22 14:16 01/27/22 14:16 01/27/22 14:16 Const General: cooperative, comfortable, no acute distress and well developed Nutritional Appearance: overweight Orientation: alert, awake and oriented x3 HEENT Head: normal to inspection, normocephalic and atraumatic Eyes Other: Continued left eye ptosis Neck Neck: normal visual inspection, full ROM, no lymphadenopathy and trachea midline Chest Chest palpation & inspection: normal inspection of the chest Resp Effort & Inspection: normal respiratory effort, able to speak in complete sentences, no audible wheezes, no cough and tachypneic Auscultation: clear to auscultation bilaterally and diminished lung sounds Cardio Jugular venous pressure: no JVD Rate: regular rate Rhythm: regular rhythm Heart Sounds: S1 normal and S2 normal GI Inspection: normal to inspection Palpation: soft and no hepatosplenomegaly Auscultation: normal bowel sounds General: deferred Skin General: no rashes or lesions noted Neuro General: patient alert, patient awake and patient oriented x3 Cognition: normal cognition Speech: speech normal Extrem General: normal to inspection and full ROM Psych Appearance: grossly normal Mood: congruent mood Affect: normal affect Speech and Movement: speech and movement normal Attitude: cooperative Thought Process: normal Thought Content: normal Insight: fair Judgment: fair Objective <Bety Mulligan, METAL FURNACE OPERATOR - Last Filed: 01/27/22 14:40> Labs CBC & Chem 7: 01/21/22 05:53 01/21/22 05:53 Medications and Allergies Allergies and Active Meds: Allergies RADHA Inhibitors Allergy (Verified 01/16/22 14:42) Unknown Reaction erythromycin base Allergy (Verified 01/16/22 14:42) Unknown Reaction rivaroxaban [From Xarelto] Allergy (Verified 01/16/22 14:42) Unknown Reaction tiotropium [From Spiriva with HandiHaler] Allergy (Verified 01/16/22 14:42) Unknown Reaction Active Medications Generic Name Dose Route Start Last Admin Trade Name Freq PRN Reason Stop Dose Admin Acetaminophen 500 mg 01/20/22 19:11 01/26/22 21:25 Acetaminophen 500 Mg Tablet PO 01/20/23 19:10 500 mg Q4H PRN Administration Pain Al Hydrox/Mg Hydrox/Simethicone 30 ml 01/20/22 19:11 Mag Hydrox/Al Hydrox/Simeth 30 Ml Udc PO 01/20/23 19:10 Q4H PRN Indigestion Albuterol 2 puff 01/20/22 19:01 01/27/22 05:27 Albuterol Hfa 60 Puff/8 Gram Inhaler INHALATION 01/20/23 19:00 2 puff Q4H PRN Administration Dyspnea Amiodarone HCl 200 mg 01/21/22 09:00 01/27/22 08:27 Amiodarone 200 Mg Tablet PO 01/21/23 08:59 200 mg DAILY ALEXA Administration Amlodipine Besylate 5 mg 01/21/22 09:00 01/27/22 08:27 Amlodipine 5 Mg Tablet PO 01/21/23 08:59 5 mg DAILY ALEXA Administration Aspirin 81 mg 01/24/22 11:40 01/27/22 08:27 Aspirin 81 Mg Tablet. PO 01/24/23 11:39 81 mg DAILY ALEXA Administration Bisacodyl 10 mg 01/20/22 19:11 Bisacodyl 10 Mg Supp.Rect WA 01/20/23 19:10 DAILY PRN Constipation Cyanocobalamin 5,000 mcg 01/21/22 09:00 01/27/22 08:28 Cyanocobalamin 1,000 Mcg Tablet PO 01/21/23 08:59 5,000 mcg DAILY ALEXA Administration Docusate Sodium 100 mg 01/20/22 19:11 01/27/22 08:29 Docusate 100 Mg Capsule PO 01/20/23 19:10 100 mg BID PRN Administration Constipation Docusate Sodium 283 mg 01/20/22 19:11 Docusate Enema 283 Mg/5 Ml Enema WA 01/20/23 19:10 DAILY PRN Constipation Fluconazole 100 mg 01/21/22 09:00 01/27/22 08:28 Fluconazole 100 Mg Tablet PO 02/04/22 08:59 100 mg QAM ALEXA Administration Hydrochlorothiazide 25 mg 01/21/22 09:00 01/27/22 08:28 Hydrochlorothiazide 25 Mg Tablet PO 01/21/23 08:59 25 mg DAILY ALEXA Administration Immune Globulin 5 gm in 50 mls @ 0 mls/hr 01/27/22 15:30 Gammagard 10% 5 Gm/50 Ml IV 01/27/22 15:31 ONCE ONE Protocol Per Protocol Immune Globulin 30 gm in 300 mls @ 0 mls/hr 01/27/22 15:30 Gammagard 10% 30 Gm/300 Ml IV 01/27/22 15:31 ONCE ONE Protocol Per Protocol Sodium Chloride 1,000 mls @ 75 mls/hr 01/23/22 15:00 01/27/22 14:15 0.9% Sodium Chloride 1,000 Ml IV 01/23/23 14:59 Not Given .[id number] ALEXA Lactulose 30 gm 01/20/22 19:11 Lactulose 20 Gm/30 Ml Udc PO 01/20/23 19:10 DAILY PRN Constipation Levothyroxine Sodium 112 mcg 01/21/22 06:30 01/26/22 06:38 Levothyroxine 112 Mcg Tablet PO 01/21/23 06:29 112 mcg [id number] ALEXA Administration Levothyroxine Sodium 125 mcg 01/23/22 06:30 01/27/22 07:41 Levothyroxine 125 Mcg Tablet PO 01/23/23 06:29 Not Given [email or web address] ALEXA Lorazepam 0.5 mg 01/20/22 19:01 01/26/22 21:26 Lorazepam 0.5 Mg Tablet PO 07/19/22 19:00 0.5 mg HS PRN Administration Sleep Potassium Chloride 20 meq 01/21/22 09:00 01/27/22 08:29 Potassium Chloride Er 20 Meq Tab.Er.Prt PO 01/21/23 08:59 20 meq DAILY ALEXA Administration Prednisone 60 mg 01/21/22 09:00 01/27/22 08:29 Prednisone 20 Mg Tablet PO 02/04/22 08:59 60 mg DAILY ALEXA Administration Fluticasone/Salmeterol 1 puff 01/20/22 21:00 01/27/22 05:28 Fluticasone/Salmeterol 113-14 Mcg 60 Puff Inhaler INHALATION 01/20/23 20:59 1 puff Q12HR ALEXA Administration Sennosides 2 tab 01/21/22 12:00 Sennosides 8.6 Mg Tablet PO 01/21/23 11:59 DAILY@12 PRN If no BM in 2 days Sodium Chloride 0 ml 01/20/22 19:11 Sodium Chloride 0.9 % 10 Ml Syringe IV-PUSH 01/20/23 19:10 PRN PRN Flush Sodium Chloride 10 ml 01/21/22 06:00 01/27/22 14:16 Sodium Chloride 0.9 % 10 Ml Syringe IV-PUSH 01/21/23 05:59 Not Given Q8H ALEXA Sucralfate 1 gm 01/20/22 22:00 01/27/22 14:15 Sucralfate Susp 1 Gm/10 Ml Udc PO 01/20/23 21:59 Not Given TID.AC.HS ALEXA Vancomycin HCl 250 mg 01/21/22 09:00 01/27/22 08:29 Vancomycin Hcl 250 Mg Capsule PO 01/28/22 08:59 250 mg DAILY ALEXA Administration Assessment/Plan <Bety Mulligan, METAL FURNACE OPERATOR - Last Filed: 01/27/22 14:40> Assessment/Plan (1) Generalized weakness: Code(s): R53.1 - Weakness Status: Acute (2) Dysphagia: Code(s): R13.10 - Dysphagia, unspecified Status: Acute (3) Ptosis of eyelid, left: Code(s): H02.402 - Unspecified ptosis of left eyelid Status: Acute (4) Diplopia: Code(s): H53.2 - Diplopia Status: Acute (5) Neuropathy: Code(s): G62.9 - Polyneuropathy, unspecified Status: Acute (6) Clostridium difficile infection: Code(s): A49.8 - Other bacterial infections of unspecified site Status: Acute (7) Minor closed head injury: Code(s): S00.90XA - Unspecified superficial injury of unspecified part of head, initial encounter Status: Acute (8) Non-small cell lung cancer (NSCLC): Code(s): C34.90 - Malignant neoplasm of unspecified part of unspecified bronchus or lung Status: Acute (9) Mahendra esophagitis: Code(s): B37.81 - Candidal esophagitis Status: Acute (10) Impaired mobility and activities of daily living: Code(s): Z74.09 - Other reduced mobility; Z78.9 - Other specified health status Status: Acute (11) Peripheral polyneuropathy: Code(s): G62.9 - Polyneuropathy, unspecified Status: Acute Plan Ms. 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 * IVIG course completed. Neurology will evaluate her on Sunday. * FI with family went well, discharge date is set for next Sunday. * She remains on oxygen at 2 L via nasal cannula with SPO2 levels in high 90s, drops into low 90s with activity. * Constipated for a few days, normal BM today * CBC and BMP ordered for tomorrow. * Was seen by oncology Dr. Christianson this morning, no change in POC. 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 setting of radiation therapy, depending on location of that, postural re-education, could consider outpatient bracing if needed Hospitalist to assist with management of comorbid medical conditions Pain control: Continue current management Bowel and bladder: Monitor for loose stools, has h/o some urinary incontinence Skin: Pressure ulcer prophylaxis, monitor abrasions/hematoma DVT prophylaxis: She did not have pharmacologic prophylaxis on acute care, I don't see a contraindication to lovenox, she's righ risk with her active cancer and limited mobility Functional status:Needs assist Discharge planning: Home on 01/31/2022 I spent greater than 15 minutes for services, including [id number] encounter with the patient, discussion of the case, plan of care, and exam; and wrrqtja-ps-dule activities, such as reviewing pertinent industrial methods consultant documentation, recent therapy notes, laboratory and radiology studies, and discussion ofcase with care team including physician, nursing, disability case manager, and therapists. More than 50 % of time was spent on patient/family counseling or coordination ofcare. <Dorian Thomason MD - Last Filed: 01/27/22 21:37> Assessment/Plan (1) Generalized weakness: (2) Dysphagia: (3) Ptosis of eyelid, left: (4) Diplopia: (5) Neuropathy: (6) Clostridium difficile infection: (7) Minor closed head injury: (8) Non-small cell lung cancer (NSCLC): (9) Mahendra esophagitis: (10) Impaired mobility and activities of daily living: (11) Peripheral polyneuropathy: Plan: I completed a substantive portion of this encounter, the medical decision makingportion of this note in its entirety, including Allied health note review, nursing note review, industrial methods consultant note review, discussion with nursing and case management, and more than 50% of my time was spent on counseling and coordination of care, time spent 13 minutes Patient was personally seen by me, Dr. Thomason, on the day of encounter, reviewed the history and the relevant portions of the chart, including current orders, allied health and industrial methods consultant notes, labs/imaging and performed branch elements of exam and I formulated the plan of care and facilitated the medical decision making and confirmed the nurse practitioner note, as above Documented By: Bety Mulligan APRN 01/27/22 1 427 Signed By: <Electronically signed by BACILIO Mulligan> 01/27/22 1440 <Electronically signed by Dorian Thomason MD> 01/27/22 8730 [facility] Work Phone: 1(152) 324-356704-15-2022 Progress note Author Amanda Dior [facility] January 27, 2022 4:30pm Note Date/Time January 27, 2022 2:4 6pm [facility] [address] [place], [place] [id number] Hospitalist Progress Note Signed Patient: Melida Valerio MR#: [id number] : 1940 Acct:[id number] Age/Sex: 81 / F Adm Date: 2 Loc: Room: [address] [place] [address] Type : ADM IN Attending Dr: Dorian Thomason MD Copies to: ~ Date of Service: 01/27/2022 Subjective Subjective Narrative: Patient is seen and examined on follow-up. Continues to work with therapy, utilizing walker Is still utilizing oxygen. Vitals are reviewed afebrile and BP stable. It is reported she is a probable discharge for next Sunday. Neurology has been following the patient and she has received IVIG from the through today at neurology request, continues on steroids Labs are reviewed last drawn on the essentially unremarkable. Exam Physical Exam Vital Signs: Temp Pulse Resp BP Pulse Ox 97.1 F L 84 18 144/78 H 98 01/27/22 14:16 01/27/22 14:16 01/27/22 14:16 01/27/22 14:16 01/27/22 14:16 Narrative: Alert, in chair, follows commands, oriented RRR no abnormal heart tones dimin without wheeze or rhonchi, RA S/NT, NABS no edema BLE, calves nontender Left eye ptosis, tongue midline Generalized weakness, right upper extremity weaker, equal shoulder strength Objective Lab Results CBC & Chem 7: 01/21/22 05:53 01/21/22 05:53 Meds Allergies and Active Meds Allergies RADHA Inhibitors Allergy (Verified 01/16/22 14:42) Unknown Reaction erythromycin base Allergy (Verified 01/16/22 14:42) Unknown Reaction rivaroxaban [From Xarelto] Allergy (Verified 01/16/22 14:42) Unknown Reaction tiotropium [From Spiriva with HandiHaler] Allergy (Verified 01/16/22 14:42) Unknown Reaction Active Meds: Active Medications Generic Name Dose Route Start Last Admin Trade Name Freq PRN Reason Stop Dose Admin Acetaminophen 500 mg 01/20/22 19:11 01/26/22 21:25 Acetaminophen 500 Mg Tablet PO 01/20/23 19:10 500 mg Q4H PRN Administration Pain Al Hydrox/Mg Hydrox/Simethicone 30 ml 01/20/22 19:11 Mag Hydrox/Al Hydrox/Simeth 30 Ml Udc PO 01/20/23 19:10 Q4H PRN Indigestion Albuterol 2 puff 01/20/22 19:01 01/27/22 05:27 Albuterol Hfa 60 Puff/8 Gram Inhaler INHALATION 01/20/23 19:00 2 puff Q4H PRN Administration Dyspnea Amiodarone HCl 200 mg 01/21/22 09:00 01/27/22 08:27 Amiodarone 200 Mg Tablet PO 01/21/23 08:59 200 mg DAILY ALEXA Administration Amlodipine Besylate 5 mg 01/21/22 09:00 01/27/22 08:27 Amlodipine 5 Mg Tablet PO 01/21/23 08:59 5 mg DAILY ALEXA Administration Aspirin 81 mg 01/24/22 11:40 01/27/22 08:27 Aspirin 81 Mg Tablet. PO 01/24/23 11:39 81 mg DAILY ALEXA Administration Bisacodyl 10 mg 01/20/22 19:11 Bisacodyl 10 Mg Supp.Rect WA 01/20/23 19:10 DAILY PRN Constipation Cyanocobalamin 5,000 mcg 01/21/22 09:00 01/27/22 08:28 Cyanocobalamin 1,000 Mcg Tablet PO 01/21/23 08:59 5,000 mcg DAILY ALEXA Administration Docusate Sodium 100 mg 01/20/22 19:11 01/27/22 08:29 Docusate 100 Mg Capsule PO 01/20/23 19:10 100 mg BID PRN Administration Constipation Docusate Sodium 283 mg 01/20/22 19:11 Docusate Enema 283 Mg/5 Ml Enema WA 01/20/23 19:10 DAILY PRN Constipation Fluconazole 100 mg 01/21/22 09:00 01/27/22 08:28 Fluconazole 100 Mg Tablet PO 02/04/22 08:59 100 mg QAM ALEXA Administration Hydrochlorothiazide 25 mg 01/21/22 09:00 01/27/22 08:28 Hydrochlorothiazide 25 Mg Tablet PO 01/21/23 08:59 25 mg DAILY ALEXA Administration Immune Globulin 5 gm in 50 mls @ 0 mls/hr 01/27/22 15:30 Gammagard 10% 5 Gm/50 Ml IV 01/27/22 15:31 ONCE ONE Protocol Per Protocol Immune Globulin 30 gm in 300 mls @ 0 mls/hr 01/27/22 15:30 Gammagard 10% 30 Gm/300 Ml IV 01/27/22 15:31 ONCE ONE Protocol Per Protocol Sodium Chloride 1,000 mls @ 75 mls/hr 01/23/22 15:00 01/27/22 14:15 0.9% Sodium Chloride 1,000 Ml IV 01/23/23 14:59 Not Given .[id number] ALEXA Lactulose 30 gm 01/20/22 19:11 Lactulose 20 Gm/30 Ml Udc PO 01/20/23 19:10 DAILY PRN Constipation Levothyroxine Sodium 112 mcg 01/21/22 06:30 01/26/22 06:38 Levothyroxine 112 Mcg Tablet PO 01/21/23 06:29 112 mcg [id number] ALEXA Administration Levothyroxine Sodium 125 mcg 01/23/22 06:30 01/27/22 07:41 Levothyroxine 125 Mcg Tablet PO 01/23/23 06:29 Not Given [id number] ALEXA Lorazepam 0.5 mg 01/20/22 19:01 01/26/22 21:26 Lorazepam 0.5 Mg Tablet PO 07/19/22 19:00 0.5 mg HS PRN Administration Sleep Potassium Chloride 20 meq 01/21/22 09:00 01/27/22 08:29 Potassium Chloride Er 20 Meq Tab.Er.Prt PO 01/21/23 08:59 20 meq DAILY ALEXA Administration Prednisone 60 mg 01/21/22 09:00 01/27/22 08:29 Prednisone 20 Mg Tablet PO 02/04/22 08:59 60 mg DAILY ALEXA Administration Fluticasone/Salmeterol 1 puff 01/20/22 21:00 01/27/22 05:28 Fluticasone/Salmeterol 113-14 Mcg 60 Puff Inhaler INHALATION 01/20/23 20:59 1 puff Q12HR ALEXA Administration Sennosides 2 tab 01/21/22 12:00 Sennosides 8.6 Mg Tablet PO 01/21/23 11:59 DAILY@12 PRN If no BM in 2 days Sodium Chloride 0 ml 01/20/22 19:11 Sodium Chloride 0.9 % 10 Ml Syringe IV-PUSH 01/20/23 19:10 PRN PRN Flush Sodium Chloride 10 ml 01/21/22 06:00 01/27/22 14:16 Sodium Chloride 0.9 % 10 Ml Syringe IV-PUSH 01/21/23 05:59 Not Given Q8H ALEXA Sucralfate 1 gm 01/20/22 22:00 01/27/22 14:15 Sucralfate Susp 1 Gm/10 Ml Udc PO 01/20/23 21:59 Not Given TID.AC.HS ALEXA Vancomycin HCl 250 mg 01/21/22 09:00 01/27/22 08:29 Vancomycin Hcl 250 Mg Capsule PO 01/28/22 08:59 250 mg DAILY ALEXA Administration A&P - Hospitalist Assessment/Plan (1) Peripheral polyneuropathy: (2) Essential hypertension: (3) Mahendra esophagitis: (4) Dysphagia: (5) Generalized weakness: (6) Ptosis of eyelid, left: (7) Diplopia: (8) History of breast cancer: (9) Clostridium difficile infection: (10) Non-small cell lung cancer (NSCLC): Plan Generalized weakness NSCLC s/p chemo/radiation, immunotherapy (on hold) Peripheral polyneuropathy Left eye ptosis ?Further POC per PMR team rehabilitative therapy, pain control and bowel regimen, DVT prophylaxis ?Continues high-dose steroid, oncology following ?Neurology following. Continue monitoring NIF and VC. IVIG 01/23?01/27 -Still to Recurrent C. difficile infection ?No diarrhea noted during medical admission. Continues on vancomycin / Dysphagia Esophageal candidiasis ?s/p EGD with esophageal dilation ?Continue Diflucan through 02/04 sucralfate Chronic conditions: 1. Hypertension?amlodipine, HCTZ. BPs reviewed and controlled 2. A. fib?amiodarone. Last rhythm strip 01/23 sinus rhythm 3. COPD?inhalers, albuterol as needed. Comorbid NSCLC, requiring oxygen 4. Hypothyroidism?levothyroxine. TSH 1.96 01/20/2022 Documented By: MARTINEZ Martinez- 2 [id number] Signed By: <Electronically signed by ANP-ARTIE Dior> 01/27/22 1630 [facility] Work Phone: [phone]) 500-529404-15-2022 Progress note Author Bertha Christianson [facility] January 27, 2022 2:34pm Note Date/Time January 27, 2022 2:2 8pm [facility] [place] [address] Hem/Onc Follow Up Note - OP Signed Patient: Melida Valerio MR#: [id number] : 1940 Acct:[id number] Age/Sex: 81 / F Type: ADM IN Copies to: ATIYA Teague Date of Service: 01/27/2022 Time of Service: 14:27 - Assessment & Plan (1) 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 Plan: Assessment & Plan (1) 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 followed by maintenance durvalumab. Started maintenance durvalumab (received 2 doses - 2 weeks apart) 10 mg/kg dosing- given 10/26/2021 and 11/09/2021. PET/CT 11/2021 [facility]. -- therapy changed to monthly dosing (Q 4 weeks - 1500 mg) - received 1 dose on:12/07/2021 CT scan dated 01/19/2022 showed resolution of right middle lobe lung nodule. No plans for further immunotherapy. (2) Generalized weakness I do think this is likely a complication of immunotherapy. There are many different types of autoimmune neurologic syndromes which can result with the useof PD-L1 inhibitors and other similar immunotherapies. Potentially myasthenic-like illness, guillan Salinas? syndrome, limbic encephalitis, etc. Work-up is in progress with Dr. Sullivan of neurology. I agree with the use of high-dose steroids and IVIG. Will discuss with him potentially reducing the steroid dosing. She is very emotionally labile. Brain MRI was essentially negative; with no evidence of intracranial metastasis or other acute changes. 01/23/2022: Day # 7 of high dose steroids. (received Solu-medrol 1 Gram IV on 01/16/2022; followed by Prednisone 90 mg daily thereafter; decreased to 60 mg PO daily on 01/21/2022. She reports overall improvement in strength and swallowing. Began IVIG today. (2) Clostridium difficile infection - History of Present Illness HPI: 01/27/22 She is walking with a walker much better. She notes right upper extremity weakness and shoulder heaviness at intervals. She continues with ptosis on the left side which is relatively unchanged. She is frustrated with her lack of progress. She continues on high-dose steroids and got IVIG this week. Closely monitored by neurology. she feels overall better though. got ivig this week. - Physical Exam I was unable to fully examine her. Her ptosis is relatively unchanged. Her muscle strength on gross testing is 5 out of 5 in bilateral upper and lower extremities. She is sitting upright in the chair. She has good posture and hasher legs crossed. - Time with Patient Coordination of Care & Counseling Time: Greater than 50% of time spent with patient was for coordination of care (as documented) and [id number]-ib-[id number] counseling of patient and/or family. [facility] - Medical History Medical History: Medical History (Last Reviewed 01/21/22 @ 18:43 by NADEEM Foy) Adenomatous colon polyp Allergic rhinitis Autoimmune hypothyroidism Chronic venous insufficiency Dysuria-frequency syndrome Essential hypertension GERD (gastroesophageal reflux disease) History of left breast cancer lumpectomy, radiation treatment History of tobacco abuse Hyperlipidemia Iron deficiency anemia secondary to blood loss (chronic) snf (current) use of inhaled steroids Nicotine dependence, cigarettes, in remission Pernicious anemia Primary insomnia - Surgical History Surgical History: Surgical History (Last Reviewed 01/21/22 @ 18:43 by NADEEM Foy) History of appendectomy History of hernia repair History of hysterectomy History of left breast biopsy History of tonsillectomy - Family History Family History: Family History (Last Reviewed 01/21/22 @ 18:43 by NADEEM Foy) Other Breast cancer Pancreatic cancer Prostate cancer - Social History Smoking Status: Former smoker Tobacco Type: cigarettes Substance Use Type: None Additional Data - Additional Objective Data Height/Weight: Height 5 ft 5 in Weight 87.8 kg Vital Signs: 01/27/22 04:58 01/27/22 14:16 Temperature 97.4 F L 97.1 F L Pulse Rate 90 84 Respiratory Rate 16 18 Blood Pressure 149/78 H 144/78 H 02 Sat by Pulse Oximetry 94 L 98 Distress Screening: Support System Spouse,Child/Children,Family,Friend Support System Spouse,Family,Friend - Lab Results Diagram of Most Recent CBC and CMP 01/21/22 05:53 01/21/22 05:53 Labs - Last 7 Days 01/23/22 14:53: Acetylchol Rcpt Block Ab 21, Acetylchol Rcpt Bind Ab <0.03 01/21/22 05:53: PHA Creatinine Clear 61.66, Sodium 138, Potassium 3.4 L, Chloride 100, Carbon Dioxide 30.1 H, BUN 22, Creatinine 0.75, Est GFR ( Amer) > 60, Est GFR (Non-Af Amer) > 60, Glucose 104 H, Calcium 8.1 L, Total Bilirubin 0.6, AST 43 H, ALT 78 H, Alkaline Phosphatase 58, Total Protein 5.5 L,Albumin 2.9 L, Globulin 2.6, Albumin/Globulin Ratio 1.1, Prealbumin 25.1 01/21/22 05:53: Corrected WBC 7.9, Uncorrected WBC Count 7.9, RBC 4.05, Hgb 12.9, Hct 38.5, MCV 95.2, MCH 31.9, MCHC 33.6, RDW 13.3, Plt Count 227, MPV 6.6,Neut % (Auto) 81.3, Lymph % (Auto) 7.6, Bowie % (Auto) 11.1, Eos % (Auto) 0.0, Baso % (Auto) 0.0, Neut # (Auto) 6.4, Lymph # (Auto) 0.6 L, Bowie # (Auto) 0.9 H,Eos # (Auto) 0.0, Baso # (Auto) 0.0, Nucleated RBC % (auto) 0.0 - Home Medications and Allergies Allergies/Adverse Reactions: Allergies RADHA Inhibitors Allergy (Verified 01/16/22 14:42) Unknown Reaction erythromycin base Allergy (Verified 01/16/22 14:42) Unknown Reaction rivaroxaban [From Xarelto] Allergy (Verified 01/16/22 14:42) Unknown Reaction tiotropium [From Spiriva with HandiHaler] Allergy (Verified 01/16/22 14:42) Unknown Reaction Home Medications: Home Medications albuterol sulfate 90 mcg/actuation aerosol inhaler (ProAir HFA) 2 puff INHALATION Q4H PRN 06/07/21 [History Confirmed 01/20/22] amiodarone 200 mg tablet 200 mg PO DAILY 06/07/21 [History Confirmed 01/20/22] amlodipine 5 mg tablet 5 mg PO DAILY 06/07/21 [History Confirmed 01/20/22] fluticasone 250 mcg-salmeterol 50 mcg/dose blistr powdr for inhalation (Advair Diskus) 1 inh INHALATION Q12H 06/07/21 [History Confirmed 01/20/22] hydrochlorothiazide 25 mg tablet 25 mg PO DAILY 06/07/21 [History Confirmed 01/20/22] levothyroxine 112 mcg tablet 112 mcg PO DIRECTED 06/07/21 [History Confirmed 01/20/22] levothyroxine 125 mcg tablet 125 mcg PO QMWF 06/07/21 [History Confirmed 01/20/22] potassium chloride 20 mEq tablet,extended release 20 meq PO DAILY #30 tab 11/23/21 [Rx Confirmed 01/20/22] vancomycin 125 mg capsule 125 mg PO DIRECTED #98 cap 12/23/21 [Rx Confirmed 01/20/22] lorazepam 0.5 mg tablet 0.5 mg PO HS PRN 30 Days #60 tab 01/10/22 [Rx Confirmed 01/20/22] cyanocobalamin (vitamin B-12) 5,000 mcg capsule 5,000 mcg PO DAILY #30 cap 01/20/22 [Rx Confirmed 01/20/22] fluconazole 100 mg tablet 100 mg PO QAM 6 Days #6 tab 01/20/22 [Rx Confirmed 01/20/22] prednisone 10 mg tablet 60 mg PO DAILY 14 Days #84 tab 01/20/22 [Rx Confirmed 01/20/22] Dictated By: Bertha Christianson II, DO DD/ 1427 Signed By: <Electronically signed by Bertha Christianson II, DO> 01/27/22 1434 [facility] Work Phone: [phone]) 833-101904-15-2022 Hospital Discharge instructionsAmbulatory Orders* Initiate Home Health Time Frame: 01/27/22, Location: Determined By Patient Additional Instructions -Code status: Full code. -Diet: Regular diet. -Activity: Weight bearing as tolerated, no driving until cleared by physician, may ride in car. -Eating strategies: Sit upright at 90 degrees with oral intake, small bites/sips, alternate liquids/solids, sit upright for 30 minutes after eating. -Take pills whole in applesauce. -Oxygen: Wear 2 liters of oxygen via nasal cannula. Your home oxygen supplier is [facility] ( ). They will deliver the home oxygen concentrator to your home this afternoon. Your Home Health agency is [facility] ( ). They will usually contact you the day after discharge to schedule a day/time to meet with you at your home to establish care. You have been given prescriptions for new and/or needed medications. These prescriptions are for a one-time fill only, with no re-fills. For further re-fills going forward, you will need to address with your PCP at your follow up appointment, or by calling your PCP s office prior to the prescriptions running out. NOTE: please call within 24 hours if you need to cancel or change any follow up appointments. Arrive early to all follow up appointments, bring current medication list, photo ID and any insurance card(s) to all future follow ups (listed below). Please remember to wear a mask to all appointments. If you develop any symptoms (cough, fever/chills, shortness of breath, sore throat, nausea/vomiting, etc.) please contact your provider's office to inform them prior to your appointment.[facility] Work Phone: 1(124) 789-718204-14-2022 Progress note Author Yunior Sullivan [facility] January 26, 2022 3:26pm Note Date/Time January 26, 2022 11: 23am [facility] [address] [place] [address] Neurology Progress Note Signed Patient: Melida Valerio MR#: [id number] : 1940 Acct:[id number] Age/Sex: 81 / F Adm Date: 2 Loc: Room: 0A0044-6 Type : ADM IN Attending Dr: Dorian Thomason MD Copies to: ~ Date of Service: 01/26/2022 Subjective Subjective Narrative: Patient was seen and examined this morning sitting upright in bedside chair. She states that she feels that she is minimally improved since coming up to rehab. She states she continues to have decreased muscle strength and she tiresvery easily which is frustrating for her at times. She states that her shortness of breath is about the same. Her shortness of breath is fairly well controlled at rest and then worsened with exertion. Patient states that her left eye ptosis is the same. Patient denies any other acute complaints or concerns at this time. Review of Systems Review of Systems Review of systems: Constitutional: Patient reports continued generalized weakness and easy fatigability Cardiac: Patient denies any chest pain but continues to report some shortness ofbreath Respiratory: Patient continues report some shortness of breath Neurologic: Patient does report generalized weakness and thinks that her left- sided ptosis is about the same Exam Physical Exam Vital Signs: Temp Pulse Resp BP Pulse Ox 97.5 F L 88 20 112/66 95 01/26/22 04:01 01/26/22 08:06 01/26/22 04:01 01/26/22 08:06 01/26/22 08:06 Narrative: General -awake, AOx3, not in acute distress, sitting upright in bed, able to follow commands appropriately Cardiovascular - regular rate and rhythm with no murmurs, rubs or gallops Pulmonary - CTA b/l without RRW Gastrointestinal - abdomen is soft, nondistended, nontender, normoactive bowel sounds, there is no guarding, rebound or rigidity NEURO EXAM: Attention span/concentration wnl Speech is normal tone and speech without slurring Cranial nerve II. Visual valentin deficits noted in L eye likely secondary to left-sided ptosis Cranial nerve III, IV and . Left-sided upper eyelid ptosis, same as prior days. Extraocular muscles are grossly intact. No nystagmus is appreciated Cranial nerve V and VII. No facial asymmetry is appreciated. Temperature and pinprick is equal bilaterally Cranial nerve VIII hearing normal bilaterally Cranial nerve IX and X Speech was normal. Palate elevation equal bilaterally Cranial nerve XI Head turn side to side full range of motion. Shoulder shrug isequal bilaterally Cranial nerve XII Tongue protrudes midline MOTOR EXAM: No tremor noted at rest or with movement Normal speed of movement Strength is 5/5 throughout. Normal muscle tone throughout SENSORY EXAM: Diminished sensation to vibration, temperature and pinprick of left lower extremity compared to right. Otherwise, sensory exam with pinprick, touch, vibration and temperature were grossly intact CEREBELLAR EXAM: [id number] exam normal Bfmq-do-[id number] normal REFLEX EXAM: Hypoactive bilateral patellar reflexes and normoactive upper extremity reflexes Objective Vital Signs Vital Signs: Vital Signs - 24 hr 01/25/22 14:30 01/25/22 16:17 01/25/22 16:55 Temperature 97.6 F 97.9 F 97.9 F Pulse Rate 82 85 87 Respiratory Rate 18 18 18 Blood Pressure 152/83 H 157/81 H 145/80 H 02 Sat by Pulse Oximetry 97 98 98 01/25/22 17:29 01/25/22 18:32 01/25/22 21:38 Temperature 98.3 F 97.5 F L Pulse Rate 92 H 86 85 Respiratory Rate 18 18 18 Blood Pressure 128/81 135/78 167/75 H 02 Sat by Pulse Oximetry 98 96 98 01/25/22 23:54 01/26/22 04:01 01/26/22 08:03 Temperature 97.5 F L Pulse Rate 98 H Respiratory Rate 20 Blood Pressure 118/72 02 Sat by Pulse Oximetry 95 94 L 95 01/26/22 08:06 Temperature Pulse Rate 88 Respiratory Rate Blood Pressure 112/66 02 Sat by Pulse Oximetry 95 Labs CBC & Chem 7: 01/21/22 05:53 01/21/22 05:53 Therapy Recommendations Therapy Recommendations: OT Recommendations OT Recommended Discharge Home with Home Health Location PT Recommendations PT Recommended Discharge Home with Outpatient Location PT Recommended Services at Physical Therapy,Occupational Therapy Discharge ST Recommendations Level of Supervision Intermittent Supervision Medication Administration Give Pills in Applesauce Dysphagia Swallow Precautions/ Sitting Upright (90 deg),Small Bites/Sips, Strategies Alternate Liquids/Solids,Sit Upright 30 Minutes Assessment/Plan (1) Ptosis of eyelid, left: Code(s): H02.402 - Unspecified ptosis of left eyelid Status: Acute (2) Generalized weakness: Code(s): R53.1 - Weakness Status: Acute Plan 81 year old woman with right lung NSCLC. She has left upper eyelid ptosis and diplopia due to dysconjugate gaze in the setting of generalized fatigue and weakness. She had noticed dysphagia to thin liquids which is not present today. Onset several weeks ago, though the diplopiawas less apparent to her, probably because the left upper eyelid hangs low enough to cover the pupillary aperture on the left. DDX:? third nerve palsy (CT and CTA unremarkable for cause), neuromuscular junction disorder (myasthenia gravis or lambert eaton because of breast cancer or because of the durvalumab) or other paraneoplastic process. MRI did not show any evidence of intracranial metastatic disease that would explain symptoms. 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 I had an extensive discussion Dr. Thomason who noted objective improvement in her walking ability and strength since she presented to the rehab unit.? Based on her continued cranial nerve symptomatology and seemingly more symptoms later in the day it is appropriate to initiate treatment with IVIG.? The patient has had a 6+ week clinical course, has had recent stable respiratory parameters and recent improvement from a physical perspective over the course of the last week and as such I do feel IVIG to be an appropriate treatment. Patient is clinically stable today, fairly similar exam compared to prior days, with stable negative inspiratory force and vital capacity. PLAN: Continue IVIG daily for a total of 5 days (oncology, rehab and medicine service informed and agreeable to plan). Added IVF and ASA 2/2 risk of hypercoagulability with initiation of IVIG.? Paraneoplastic profile and laboratory evaluation for myasthenia; pending Continue high-dose intravenous steroids, patient has some improvement in the muscle strength of bilateral upper and lower extremities, still reporting generalized weakness and easy fatigability Will follow with Heme-onc Continue to monitor for dyspnea c NIF and VC Consider outpatient NCS/EMG Diagnosis, prognosis and treatment options discussed in detail.? All questions answered.? Patient understands and is agreeable to the plan. We will have the patient seen next Sunday prior to her discharge to see if she is overall having improvement from the IVIG and steroid treatment. I will leavefinal decision on steroid dosage and length to [facility] oncology. I have personally seen and examined the patient on rounds today. I was present for the branch parts of clinical decision making. I agree with the Nurse Practitioner's note other than as stated by me. Documented By: Jarad Walters DO, RES 01/26/22 1 117 Signed By: <Electronically signed by RES Jarad Romeo> 01/26/22 1334 <Electronically signed by Yunior Sullivan DO> 01/26/22 1526 [facility] Work Phone: [phone] 329-240304-14-2022 Consult note Author Vernell Singletary [facility] January 26, 2022 8:13am Note Date/Time January 23, 2022 10: 04am [facility] [address] [place] [address] Hem/Onc Consult Note - IP Signed Patient: Melida Valerio MR#: [id number] : 1940 Acct:[id number] Age/Sex: 81 / F Adm Date: 2 Loc: Room: [address] [place] [address] Type : ADM IN Attending Dr: Dorian Thomason MD Copies to: DO Dorian Teague MD Lindsay L Damschroder, APRN Timothy J Adamowicz, II, DO~ HPI Consult Date: 01/23/2022 Requesting Provider: Dorian Thomason MD Reason for Consult: Established patient; oncological history notable for 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 She presented to our outpatient oncology clinic on 01/16/2022 with multiple issues. Of note, she commenced maintenance immunotherapy with Durvalumab 10 mg/kg dosing with every 2 week dosing (10/26/2021 and 11/09/2021); followed by flat dosing of 1500 mg every 4 weeks; given x 1 on 12/07/2021; following good response from concurrent chemoradiation for stage II squamous cell carcinoma of the right lung. PET/CT scan dated 11/28/2021 showed no evidenceof disease. She reported a rather complicated clinical course over the past several weeks. To briefly summarize, the patient reportedly had a fall at home on 11/14/2021. The patient's family reports that approximately 3 weeks after shefell; and ~ 2-3 days after last immunotherapy; she began having a multitude of complaints including headaches, dizziness, balance issues, trouble swallowing and progressive weakness in extremities x 4. Which was a clear deviation from her baseline performance status. The patient was subsequently admitted to [facility] 3 tower under the hospitalist service with neurology consultation and initiation of high-dose corticosteroids. She noted improvement in generalized weakness overall, but still continued to have some ptosis of the left eye and bilateral lowerextremity weakness (left > right). Her neurology work-up including CT, CTA and brain MRI were all non acute. Repeat CT of the chest showed resolution of right middle lobe mass and no other obvious areas of disease or interstitial pneumonitis. She had EGD performed by Dr. Whiting on 01/20/2022 for complaints of band like sensation in chest and dysphagia. Findings were consistent with mildesophageal spasm dilated to 20 mm with balloon and mild mahendra esophagitis. She was recommended for discharge to inpatient rehab - [address] and was transferred from inpatient to rehab on Thursday, January 20, 2022. She is still on oral; high dose steroids and is generally doing okay; much better compared to admission. Oxygenation stable on 1-2 liters nasal cannula; no other new complaints or acute events over the weekend. History: 81-year-old female referred from Dr. Mccarty whom was previously followed at [facility] for breast cancer by Dr. Christianson. Past medical history includes hypertension, chronic venous insufficiency, gastroesophageal reflux disease, type 2 diabetes, quit smoking in 1999, pernicious anemia, hypothyroidism, iron deficiency anemia, paroxysmal atrial fibrillation, hyperlipidemia, chronic bronchitis.. She had a hysterectomy and nephrectomy in her 20s for endometriosis. Outpatient medications include ProAir, levothyroxine, hydrochlorothiazide, amlodipine, montelukast, amiodarone. DEXA scan from 2018 shows osteopenia in the hip and normal in the spine echocardiogram from May 2019 shows ejection fraction of greater than 55%, no significant wall motion abnormalities and mild diastolic dysfunction. Slightly elevated right-sided pressures. No significant valvular abnormalities. She does have a sister with breast cancer in her 40s, mother sister had breast cancer in her 70s, mother's other sister had breast cancer in her 70s, mother had breast cancer in her 50s. Melida has 2 adopted children. She was diagnosed with ER/WA positive HER-2 negative breast cancer in 2009 at a hospital in [place]. She got adjuvant radiotherapy following lumpectomy. She did not get chemotherapy and refused adjuvant tamoxifen and has been monitored since. CAT scan of the chest from January 2017 showed no evidence of disease. She followed up with mammograms regularly and they were all normal. She had some short of breath since December 2020. In late April she noted a slight right upper quadrant pain. Worse with deep breathing. She went to ER on 05/16/21. She had XR with R sided consolidation. and A CT of the abdomen and pelvis from May 16, 2021 with IV contrast shows normallung bases, normal liver, pancreas, gallbladder, spleen. Left adrenal 2 cm nodule, normal kidneys, bladder, bowel, peritoneum. No enlarged lymph nodes. No abnormalities in the bones. She was admitted to the hospital and had CT chest next day which noted a large mass. Some dry irritating cough. She was discharged and f/u with dr. mccarty. She had a bronchoscopy on 05/30/[address] Mccarty. Found an endobronchial mass in the lateral segment of the right middle lobe. 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 Negative for TTF-1 and positive for P 40. She had pulmonary function studies in December 2020 with an FEV1 of 1.95 L in the right middle lobe only comprises 11% of the total lung capacity. had EBUS Dr. JOHNSON. Nodes all negative adrenal biopsy negative. PET/CT with disease localized, few nodes curious. Treatment history: Concurrent chemoradiation with Carboplatin/Paclitaxel: 08/08/2021-09/20/2021 Maintenance Durvalumab q2wks 10/26/21 and 11/09/2021 Switched to monthly (q 4 week) 1500 mg - 12/07/2021 01/23/22 She feels overall she continues to improve her general strength, after aggressive rehabilitation today though she did have an episode with very severe weakness and was very frustrated. Appreciate neurology consult, appreciate laboratory profile sent as well as IVIGstarted. ROS Subjective/ROS - Narrative: Constitutional Constitutional: Reports system reviewed and no additional complaints, except as documented, Reports fatigue and Reports frequent falls Eyes Eyes: Reports system reviewed and no additional complaints, except as documented Comments: + left ptosis ENT Ears, Nose, Mouth, and Throat: Reports system reviewed and no additional complaints, except as documented Comments: pain with swallowing Cardiovascular Cardiovascular: Reports system reviewed and no additional complaints, except as documented Respiratory Respiratory: Reports system reviewed and no additional complaints, except as documented Gastrointestinal Gastrointestinal: Reports system reviewed and no additional complaints, except as documented and Reports abdominal pain Genitourinary Genitourinary: Reports system reviewed and no additional complaints, except as documented Musculoskeletal Musculoskeletal: Reports system reviewed and no additional complaints, except asdocumented and Reports abnormal gait Integumentary/Breasts Skin/Breast: Reports system reviewed and no additional complaints, except as documented Neurologic Neurologic: Reports system reviewed and no additional complaints, except as documented, Reports disequilibrium, Reports frequent falls, Reports paresthesiasand Reports weakness Psychiatric Psychiatric: Reports system reviewed and no additional complaints, except as documented Endocrine Endocrine: Reports fatigue PMFSH - Medical History Medical History: Medical History (Last Reviewed 01/21/22 @ 18:43 by NADEEM Foy) Adenomatous colon polyp Allergic rhinitis Autoimmune hypothyroidism Chronic venous insufficiency Dysuria-frequency syndrome Essential hypertension GERD (gastroesophageal reflux disease) History of left breast cancer lumpectomy, radiation treatment History of tobacco abuse Hyperlipidemia Iron deficiency anemia secondary to blood loss (chronic) snf (current) use of inhaled steroids Nicotine dependence, cigarettes, in remission Pernicious anemia Primary insomnia - Surgical History Surgical History: Surgical History (Last Reviewed 01/21/22 @ 18:43 by NADEEM Foy) History of appendectomy History of hernia repair History of hysterectomy History of left breast biopsy History of tonsillectomy - Family History Family History: Family History (Last Reviewed 01/21/22 @ 18:43 by NADEEM Foy) Other Breast cancer Pancreatic cancer Prostate cancer - Social History Smoking Status: Former smoker Tobacco Type: cigarettes Substance Use Type: None Allergies & Medications Allergies RADHA Inhibitors Allergy (Verified 01/16/22 14:42) Unknown Reaction erythromycin base Allergy (Verified 01/16/22 14:42) Unknown Reaction rivaroxaban [From Xarelto] Allergy (Verified 01/16/22 14:42) Unknown Reaction tiotropium [From Spiriva with HandiHaler] Allergy (Verified 01/16/22 14:42) Unknown Reaction Home Medications albuterol sulfate 90 mcg/actuation aerosol inhaler (ProAir HFA) 2 puff INHALATION Q4H PRN 06/07/21 [History Confirmed 01/20/22] amiodarone 200 mg tablet 200 mg PO DAILY 06/07/21 [History Confirmed 01/20/22] amlodipine 5 mg tablet 5 mg PO DAILY 06/07/21 [History Confirmed 01/20/22] fluticasone 250 mcg-salmeterol 50 mcg/dose blistr powdr for inhalation (Advair Diskus) 1 inh INHALATION Q12H 06/07/21 [History Confirmed 01/20/22] hydrochlorothiazide 25 mg tablet 25 mg PO DAILY 06/07/21 [History Confirmed 01/20/22] levothyroxine 112 mcg tablet 112 mcg PO DIRECTED 06/07/21 [History Confirmed 01/20/22] levothyroxine 125 mcg tablet 125 mcg PO QMWF 06/07/21 [History Confirmed 01/20/22] potassium chloride 20 mEq tablet,extended release 20 meq PO DAILY #30 tab 11/23/21 [Rx Confirmed 01/20/22] vancomycin 125 mg capsule 125 mg PO DIRECTED #98 cap 12/23/21 [Rx Confirmed 01/20/22] lorazepam 0.5 mg tablet 0.5 mg PO HS PRN 30 Days #60 tab 01/10/22 [Rx Confirmed 01/20/22] cyanocobalamin (vitamin B-12) 5,000 mcg capsule 5,000 mcg PO DAILY #30 cap 01/20/22 [Rx Confirmed 01/20/22] fluconazole 100 mg tablet 100 mg PO QAM 6 Days #6 tab 01/20/22 [Rx Confirmed 01/20/22] prednisone 10 mg tablet 60 mg PO DAILY 14 Days #84 tab 01/20/22 [Rx Confirmed 01/20/22] Physical Exam - Physical Exam Vital signs: Temp Pulse Resp BP Pulse Ox 97.6 F 78 16 166/84 H 99 01/23/22 05:00 01/23/22 05:00 01/23/22 05:00 01/23/22 05:00 01/23/22 05:00 Const General: cooperative and no acute distress Orientation: alert, awake and oriented x3 HEENT Head: normocephalic, atraumatic, no scleral icterus Eyes Other: + ptosis Neck Other: neck extension weakness Resp Effort & Inspection: normal respiratory effort Auscultation: clear to auscultation bilaterally Other: nasal cannula- 1-2 liters GI Inspection: normal to inspection; abdomen soft, NT Neuro Cognition: normal cognition Speech: speech normal Gait: ataxic Motor: strength abnormal (4/5 RUE, LLE) Sensory Exam: other (abnormal stocking glove distribution) Assessment & Plan (1) 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 followed by maintenance durvalumab. Started maintenance durvalumab (received 2 doses - 2 weeks apart) 10 mg/kg dosing- given 10/26/2021 and 11/09/2021. PET/CT 11/2021 [facility]. -- therapy changed to monthly dosing (Q 4 weeks - 1500 mg) - received 1 dose on:12/07/2021 CT scan dated 01/19/2022 showed resolution of right middle lobe lung nodule. No plans for further immunotherapy. (2) Generalized weakness I do think this is likely a complication of immunotherapy. There are many different types of autoimmune neurologic syndromes which can result with the useof PD-L1 inhibitors and other similar immunotherapies. Potentially myasthenic-like illness, guillan Salinas? syndrome, limbic encephalitis, etc. I agree with the use of high-dose steroids and IVIG. Brain MRI was essentially negative; with no evidence of intracranial metastasis or other acute changes. 01/23/2022: Day # 7 of high dose steroids. (received Solu-medrol 1 Gram IV on 01/16/2022; followed by Prednisone 90 mg daily thereafter; decreased to 60 mg PO daily on 01/21/2022. She reports overall improvement in strength and swallowing. Began IVIG today. (3) Clostridium difficile infection Recurrent x 3 throughout course of treatment. Presently on 3rd round of treatment; on Vancomycin oral. - Time Spent with Patient Total Time Spent with Patient: 55 min Greater than 50% of time spent with patient was for coordination of care (as documented) and [id number] counseling of patient and/or family. Documented By: Vernell Singletary APRN 01/23 1004 Signed By: <Electronically signed by BACILIO Singletary> 01/26/22 0813 <Electronically signed by Bertha Christianson II, > 01/23/22 1738 [facility] Work Phone: [phone]) 722-195404-13-2022 Progress note Author Dorian Thomason [facility] January 25, 2022 8:58pm Note Date/Time January 25, 2022 8:5 8pm [facility] [address] [place] [address] Physiatry(Rehab) Progress Note Signed Patient: Melida Valerio MR#: [id number] : 1940 Acct:[id number] Age/Sex: 81 / F Adm Date: 2 Loc: Room: [address] [place] [address] Type : ADM IN Attending Dr: Dorian Thomason MD Copies to: ~ Date of Service: 01/25/2022 Subjective Subjective Narrative: Ms. Valerio is a 81 year old female admitted to rehab with multifactorial functional decline in setting of NSCLC s/p chemoradiation and subsequent maintenance immunotherapy, which is now on hold. She presented directly form oncology with generalized weakness, difficulty caring for self, increased oxygen needs, noted to have some ptosis and dysphagia. Differential is broad and includes NMJ disorder. She's been treated with high dose steroids, to be maintained until outpatient f/u with oncology. She did have some dysphagia and underwent endoscopy with dilatation for esophageal spasm, noted to have mahendra esophagitis and placed on diflucan. She has recurrent c. diff, should have outpatient consult with Dr. Tran. Interval history: She's clinically stable from yesterday, definitely better than Sunday morning Just with 1L nasal cannula Ambulating in hallways with PT Review of Systems Constitutional Constitutional: Reports system reviewed and no additional complaints, except as documented, Reports fatigue, Reports frequent falls and Reports weakness Eyes Eyes: Reports system reviewed and no additional complaints, except as documented Comments: + left ptosis ENT Ears, Nose, Mouth, and Throat: Reports system reviewed and no additional complaints, except as documented and Reports disequilibrium Comments: pain with swallowing Cardiovascular Cardiovascular: Reports system reviewed and no additional complaints, except as documented Respiratory Respiratory: Reports system reviewed and no additional complaints, except as documented Gastrointestinal Gastrointestinal: Reports system reviewed and no additional complaints, except as documented and Reports abdominal pain Genitourinary Genitourinary: Reports system reviewed and no additional complaints, except as documented Musculoskeletal Musculoskeletal: Reports system reviewed and no additional complaints, except asdocumented and Reports abnormal gait Integumentary/Breasts Skin/Breast: Reports system reviewed and no additional complaints, except as documented Neurologic Neurologic: Reports system reviewed and no additional complaints, except as documented, Reports abnormal gait, Reports disequilibrium, Reports frequent falls, Reports paresthesias and Reports weakness Psychiatric Psychiatric: Reports system reviewed and no additional complaints, except as documented Endocrine Endocrine: Reports fatigue Exam Physical Exam Vital Signs: Temp Pulse Resp BP Pulse Ox 97.5 F L 86 18 135/78 96 01/25/22 18:32 01/25/22 18:32 01/25/22 18:32 01/25/22 18:32 01/25/22 18:32 Const General: cooperative and no acute distress Orientation: alert, awake and oriented x3 HEENT Head: abrasion and contusion Resp Effort & Inspection: normal respiratory effort Auscultation: clear to auscultation bilaterally GI Inspection: normal to inspection Neuro Cognition: normal cognition Speech: speech normal Gait: ataxic Motor: strength abnormal (4/5 RUE, LLE) Sensory Exam: other (abnormal stocking glove distribution) Objective Labs CBC & Chem 7: 01/21/22 05:53 01/21/22 05:53 Labs: Laboratory Results - last 24 hr 01/23/22 14:53 Acetylchol Rcpt Bind Ab <0.03 Medications and Allergies Allergies and Active Meds: Allergies RADHA Inhibitors Allergy (Verified 01/16/22 14:42) Unknown Reaction erythromycin base Allergy (Verified 01/16/22 14:42) Unknown Reaction rivaroxaban [From Xarelto] Allergy (Verified 01/16/22 14:42) Unknown Reaction tiotropium [From Spiriva with HandiHaler] Allergy (Verified 01/16/22 14:42) Unknown Reaction Active Medications Generic Name Dose Route Start Last Admin Trade Name Freq PRN Reason Stop Dose Admin Acetaminophen 500 mg 01/20/22 19:11 01/24/22 21:23 Acetaminophen 500 Mg Tablet PO 01/20/23 19:10 500 mg Q4H PRN Administration Pain Al Hydrox/Mg Hydrox/Simethicone 30 ml 01/20/22 19:11 Mag Hydrox/Al Hydrox/Simeth 30 Ml Udc PO 01/20/23 19:10 Q4H PRN Indigestion Albuterol 2 puff 01/20/22 19:01 01/23/22 19:17 Albuterol Hfa 60 Puff/8 Gram Inhaler INHALATION 01/20/23 19:00 2 puff Q4H PRN Administration Dyspnea Amiodarone HCl 200 mg 01/21/22 09:00 01/25/22 08:31 Amiodarone 200 Mg Tablet PO 01/21/23 08:59 200 mg DAILY ALEXA Administration Amlodipine Besylate 5 mg 01/21/22 09:00 01/25/22 08:32 Amlodipine 5 Mg Tablet PO 01/21/23 08:59 5 mg DAILY ALEXA Administration Aspirin 81 mg 01/24/22 11:40 01/25/22 08:32 Aspirin 81 Mg Tablet.Dr PO 01/24/23 11:39 81 mg DAILY ALEXA Administration Bisacodyl 10 mg 01/20/22 19:11 Bisacodyl 10 Mg Supp.Rect WA 01/20/23 19:10 DAILY PRN Constipation Cyanocobalamin 5,000 mcg 01/21/22 09:00 01/25/22 08:32 Cyanocobalamin 1,000 Mcg Tablet PO 01/21/23 08:59 5,000 mcg DAILY ALEXA Administration Docusate Sodium 100 mg 01/20/22 19:11 01/25/22 08:37 Docusate 100 Mg Capsule PO 01/20/23 19:10 100 mg BID PRN Administration Constipation Docusate Sodium 283 mg 01/20/22 19:11 Docusate Enema 283 Mg/5 Ml Enema WA 01/20/23 19:10 DAILY PRN Constipation Fluconazole 100 mg 01/21/22 09:00 01/25/22 08:32 Fluconazole 100 Mg Tablet PO 02/04/22 08:59 100 mg QAM ALEXA Administration Hydrochlorothiazide 25 mg 01/21/22 09:00 01/25/22 08:33 Hydrochlorothiazide 25 Mg Tablet PO 01/21/23 08:59 25 mg DAILY ALEXA Administration Immune Globulin 5 gm in 50 mls @ 0 mls/hr 01/26/22 15:30 Gammagard 10% 5 Gm/50 Ml IV 01/26/22 15:31 ONCE ONE Protocol Per Protocol Immune Globulin 30 gm in 300 mls @ 0 mls/hr 01/26/22 15:30 Gammagard 10% 30 Gm/300 Ml IV 01/26/22 15:31 ONCE ONE Protocol Per Protocol Immune Globulin 5 gm in 50 mls @ 0 mls/hr 01/27/22 15:30 Gammagard 10% 5 Gm/50 Ml IV 01/27/22 15:31 ONCE ONE Protocol Per Protocol Immune Globulin 30 gm in 300 mls @ 0 mls/hr 01/27/22 15:30 Gammagard 10% 30 Gm/300 Ml IV 01/27/22 15:31 ONCE ONE Protocol Per Protocol Sodium Chloride 1,000 mls @ 75 mls/hr 01/23/22 15:00 01/25/22 18:44 0.9% Sodium Chloride 1,000 Ml IV 01/23/23 14:59 75 mls/hr .[id number] ALEXA Administration Lactulose 30 gm 01/20/22 19:11 Lactulose 20 Gm/30 Ml Udc PO 01/20/23 19:10 DAILY PRN Constipation Levothyroxine Sodium 112 mcg 01/21/22 06:30 01/24/22 06:56 Levothyroxine 112 Mcg Tablet PO 01/21/23 06:29 Not Given [id number] ALEXA Levothyroxine Sodium 125 mcg 01/23/22 06:30 01/25/22 06:32 Levothyroxine 125 Mcg Tablet PO 01/23/23 06:29 125 mcg [id number] ALEXA Administration Lorazepam 0.5 mg 01/20/22 19:01 01/24/22 21:23 Lorazepam 0.5 Mg Tablet PO 07/19/22 19:00 0.5 mg HS PRN Administration Sleep Potassium Chloride 20 meq 01/21/22 09:00 01/25/22 08:33 Potassium Chloride Er 20 Meq Tab.Er.Prt PO 01/21/23 08:59 20 meq DAILY ALEXA Administration Prednisone 60 mg 01/21/22 09:00 01/25/22 08:33 Prednisone 20 Mg Tablet PO 02/04/22 08:59 60 mg DAILY ALEXA Administration Fluticasone/Salmeterol 1 puff 01/20/22 21:00 01/25/22 18:11 Fluticasone/Salmeterol 113-14 Mcg 60 Puff Inhaler INHALATION 01/20/23 20:59 1 puff Q12HR ALEXA Administration Sennosides 2 tab 01/21/22 12:00 Sennosides 8.6 Mg Tablet PO 01/21/23 11:59 DAILY@12 PRN If no BM in 2 days Sodium Chloride 0 ml 01/20/22 19:11 Sodium Chloride 0.9 % 10 Ml Syringe IV-PUSH 01/20/23 19:10 PRN PRN Flush Sodium Chloride 10 ml 01/21/22 06:00 01/25/22 14:31 Sodium Chloride 0.9 % 10 Ml Syringe IV-PUSH 01/21/23 05:59 Not Given Q8H ALEXA Sucralfate 1 gm 01/20/22 22:00 01/25/22 17:29 Sucralfate Susp 1 Gm/10 Ml Udc PO 01/20/23 21:59 Not Given TID.AC.HS ALEXA Vancomycin HCl 250 mg 01/21/22 09:00 01/25/22 08:33 Vancomycin Hcl 250 Mg Capsule PO 01/28/22 08:59 250 mg DAILY ALEXA Administration Assessment/Plan Assessment/Plan (1) Generalized weakness: Code(s): R53.1 - Weakness Status: Acute (2) Dysphagia: Code(s): R13.10 - Dysphagia, unspecified Status: Acute (3) Ptosis of eyelid, left: Code(s): H02.402 - Unspecified ptosis of left eyelid Status: Acute (4) Diplopia: Code(s): H53.2 - Diplopia Status: Acute (5) Neuropathy: Code(s): G62.9 - Polyneuropathy, unspecified Status: Acute (6) Clostridium difficile infection: Code(s): A49.8 - Other bacterial infections of unspecified site Status: Acute (7) Minor closed head injury: Code(s): S00.90XA - Unspecified superficial injury of unspecified part of head, initial encounter Status: Acute (8) Non-small cell lung cancer (NSCLC): Code(s): C34.90 - Malignant neoplasm of unspecified part of unspecified bronchus or lung Status: Acute (9) Mahendra esophagitis: Code(s): B37.81 - Candidal esophagitis Status: Acute (10) Impaired mobility and activities of daily living: Code(s): Z74.09 - Other reduced mobility; Z78.9 - Other specified health status Status: Acute (11) Peripheral polyneuropathy: Code(s): G62.9 - Polyneuropathy, unspecified Status: Acute Plan Ms. 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 Continue IVIG to complete 5 day course on Sunday Clinically stable, requiring 1L nasal cannula Monitor NIF, VC Ambulating 55' x 2 trials maintaining SPO2 over 90% May have dropped head syndrome developing ? setting of radiation therapy, depending on location of that, postural re-education, could consider outpatient bracing if needed Hospitalist to assist with management of comorbid medical conditions Pain control: Continue current management Bowel and bladder: Monitor for loose stools, has h/o some urinary incontinence Skin: Pressure ulcer prophylaxis, monitor abrasions/hematoma DVT prophylaxis: She did not have pharmacologic prophylaxis on acute care, I don't see a contraindication to lovenox, she's righ risk with her active cancer and limited mobility Functional status:Needs assist Discharge planning:Home in 1 week. Insurance approved additional time.. Documented By: Dorian Thomason MD 01/25/222053 Signed By: <Electronically signed by Dorian Thomason MD> 01/25/222057 [facility] Work Phone: 1(925) 937-153104-13-2022 Progress note Author Yunior Sullivan [facility] January 25, 2022 3:32pm Note Date/Time January 25, 2022 3:3 2pm [facility] [address] [place] [address] Neurology Progress Note Signed Patient: Melida Valerio MR#: [id number] : 1940 Acct:[id number] Age/Sex: 81 / F Adm Date: 2 Loc: Room: [address] [place] [address] Type : ADM IN Attending Dr: Dorian Thomason MD Copies to: ~ Date of Service: 01/25/2022 Subjective Subjective Narrative: I follow the patient in the rehab unit today. She had just finished therapy andwas somewhat fatigued. She is stable today as compared to yesterday with continued vision issues and ptosis of the left eye. No acute events overnight. Continued to participate in therapy.She has received 2 of 5 doses of IVIG Review of Systems Review of Systems Unobtainable due to mental status Exam Physical Exam Vital Signs: Temp Pulse Resp BP Pulse Ox 97.6 F 82 18 152/83 H 97 01/25/22 14:30 01/25/22 14:30 01/25/22 14:30 01/25/22 14:30 01/25/22 14:30 Narrative: General -awake, AOx3, not in acute distress, sitting upright in bed, able to follow commands appropriately Cardiovascular - regular rate and rhythm with no murmurs, rubs or gallops Pulmonary - CTA b/l without RRW Gastrointestinal -? abdomen is soft, nondistended, nontender, normoactive bowel sounds, there is no guarding, rebound or rigidity NEURO EXAM: Attention span/concentration wnl Speech is normal tone and speech without slurring Cranial nerve II.? Visual valentin deficits noted on upper L visual field likely 2/2 L sided ptosis Cranial nerve III, IV and .? Left-sided upper eyelid ptosis, marginally improved this morning. Extraocular muscles are grossly intact.? No nystagmus is appreciated Cranial nerve V and VII.? No facial asymmetry is appreciated.? Temperature and pinprick is equal bilaterally Cranial nerve VIII Hearing diminished on R compared to L. Cranial nerve IX and X Speech was normal. Palate elevation equal bilaterally Cranial nerve XI head turn side to side full range of motion.? Shoulder shrug isequal bilaterally Cranial nerve XII tongue protrudes midline MOTOR EXAM: No tremor noted at rest or with movement Normal speed of movement Strength is 4/5 throughout. Normal muscle tone throughout ? SENSORY EXAM: Diminished sensation to vibration and temperature in bilateral lower extremities.? Otherwise, sensory exam with pinprick, touch, vibration and temperature were grossly intact CEREBELLAR EXAM: Jrtdvh-cc-cjrt exam normal [id number] normal REFLEX EXAM: Normal bilateral patellar reflexes and upper extremity reflexes Objective Vital Signs Vital Signs: Vital Signs - 24 hr 01/24/22 15:45 01/24/22 16:00 01/24/22 16:45 Temperature 98 F Pulse Rate 80 87 Respiratory Rate 16 Blood Pressure 146/74 H 138/82 02 Sat by Pulse Oximetry 95 97 98 01/24/22 17:20 01/24/22 18:00 01/24/22 21:14 Temperature 97.7 F Pulse Rate 81 81 80 Respiratory Rate 20 Blood Pressure 136/80 136/81 150/68 H 02 Sat by Pulse Oximetry 100 99 99 01/24/22 22:02 01/24/22 22:29 01/24/22 23:30 Temperature 97.7 F 97.7 F Pulse Rate 80 74 Respiratory Rate 20 20 Blood Pressure 149/77 H 153/80 H 02 Sat by Pulse Oximetry 99 99 99 01/25/22 04:50 01/25/22 14:30 Temperature 97.4 F L 97.6 F Pulse Rate 77 82 Respiratory Rate 20 18 Blood Pressure 130/74 152/83 H 02 Sat by Pulse Oximetry 94 L 97 Labs CBC & Chem 7: 01/21/22 05:53 01/21/22 05:53 Therapy Recommendations Therapy Recommendations: OT Recommendations OT Recommended Discharge Home with Home Health Location PT Recommendations PT Recommended Discharge Home with Outpatient Location PT Recommended Services at Physical Therapy,Occupational Therapy Discharge ST Recommendations Level of Supervision Intermittent Supervision Medication Administration Give Pills in Applesauce Dysphagia Swallow Precautions/ Sitting Upright (90 deg),Small Bites/Sips, Strategies Alternate Liquids/Solids,Sit Upright 30 Minutes Assessment/Plan (1) Ptosis of eyelid, left: Code(s): H02.402 - Unspecified ptosis of left eyelid Status: Acute (2) Generalized weakness: Code(s): R53.1 - Weakness Status: Acute Plan 81 year old woman with right lung NSCLC. She has left upper eyelid ptosis and diplopia due to dysconjugate gaze in the setting of generalized fatigue and weakness. She had noticed dysphagia to thin liquids which is not present today. Onset several weeks ago, though the diplopiawas less apparent to her, probably because the left upper eyelid hangs low enough to cover the pupillary aperture on the left. DDX: third nerve palsy (CT and CTA unremarkable for cause), neuromuscular junction disorder (myasthenia gravis or lambert eaton because of breast cancer or because of the durvalumab) or other paraneoplastic process. MRI did not show any evidence of intracranial metastatic disease that would explain symptoms. 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 I had an extensive discussion Dr. Thomason who noted objective improvement in her walking ability and strength since she presented to the rehab unit. Based on her continued cranial nerve symptomatology and seemingly more symptoms later in the day it is appropriate to initiate treatment with IVIG. The patient has had a 6+ week clinical course, has had recent stable respiratory parameters and recent improvement from a physical perspective over the course of the last week and as such I do feel IVIG to be an appropriate treatment. Patient is clinically stable today with stable negative inspiratory force and vital capacity. PLAN: Continue IVIG daily for a total of 5 days (oncology, rehab and medicine service informed and agreeable to plan). Added IVF and ASA 2/2 risk of hypercoagulability with initiation of IVIG. Paraneoplastic profile and laboratory evaluation for myasthenia; pending Continue high-dose intravenous steroids, patient has some improvement in the muscle strength of upper extremities, continued weakness of lower extremities worse on the left. Will follow with Heme-onc Continue to monitor for dyspnea c NIF and VC Consider outpatient NCS/EMG Diagnosis, prognosis and treatment options discussed in detail. All questions answered. Patient understands and is agreeable to the plan. I have personally seen and examined the patient on rounds today. I was present for the branch parts of clinical decision making. I agree with the Nurse Practitioner's note other than as stated by me. Documented By: Yunior Sullivan DO 2 1530 Signed By: <Electronically signed by Yunior Sullivan DO> 01/25/22 1532 [facility] Work Phone: 1(401) 353-171304-12-2022 Progress note Author Yunior Sullivan [facility] January 24, 2022 3:27pm Note Date/Time January 24, 2022 10: 03am [facility] [address] [place] [address] Neurology Progress Note Signed Patient: Melida Valerio MR#: [id number] : 1940 Acct:[id number] Age/Sex: 81 / F Adm Date: 2 Loc: Room: 0E3819-1 Type : ADM IN Attending Dr: Dorian Thomason MD Copies to: ~ Date of Service: 01/24/2022 Subjective Subjective Narrative: Patient was seen and examined this morning sitting upright in bed. She states that she she is feeling better this morning compared to yesterday afternoon following therapy. She states that she continues to be slightly short of breathwhich is about same as yesterday. However she is only on 1 L via nasal cannula this morning and satting well. Patient continues to report generalized weaknessbut states that she believes her ptosis on the left side was improved this morning when she looked in the mirror. Patient continues to report some blurry vision but denies any difficulty seeing things in front of her. Patient denies any chest pain or other acute complaints at this time. Review of Systems Review of Systems Review of systems: Constitutional: Patient reports continued generalized weakness Cardiac: Patient denies any chest pain but continues to report some shortness ofbreath Respiratory: Patient continues report some shortness of breath Neurologic: Patient does report generalized weakness but thinks that her left- sided ptosis is improved this morning Exam Physical Exam Vital Signs: Temp Pulse Resp BP Pulse Ox 97.5 F L 77 17 138/76 94 L 01/24/22 05:06 01/24/22 05:06 01/24/22 05:06 01/24/22 05:06 01/24/22 07:50 Narrative: General -awake, AOx3, not in acute distress, sitting upright in bed, able to follow commands appropriately Cardiovascular - regular rate and rhythm with no murmurs, rubs or gallops Pulmonary - CTA b/l without RRW Gastrointestinal - abdomen is soft, nondistended, nontender, normoactive bowel sounds, there is no guarding, rebound or rigidity NEURO EXAM: Attention span/concentration wnl Speech is normal tone and speech without slurring Cranial nerve II. Visual valentin deficits noted on upper L visual field likely 2/2 L sided ptosis Cranial nerve III, IV and . Left-sided upper eyelid ptosis, marginally improved this morning. Extraocular muscles are grossly intact. No nystagmus is appreciated Cranial nerve V and VII. No facial asymmetry is appreciated. Temperature and pinprick is equal bilaterally Cranial nerve VIII Hearing diminished on R compared to L. Cranial nerve IX and X Speech was normal. Palate elevation equal bilaterally Cranial nerve XI head turn side to side full range of motion. Shoulder shrug isequal bilaterally Cranial nerve XII tongue protrudes midline MOTOR EXAM: No tremor noted at rest or with movement Normal speed of movement Strength is 4/5 throughout. Normal muscle tone throughout SENSORY EXAM: Diminished sensation to vibration and temperature in bilateral lower extremities. Otherwise, sensory exam with pinprick, touch, vibration and temperature were grossly intact CEREBELLAR EXAM: Iwcxnb-nt-aess exam normal Sxag-gn-paql normal REFLEX EXAM: Normal bilateral patellar reflexes and upper extremity reflexes Objective Vital Signs Vital Signs: Vital Signs - 24 hr 01/23/22 13:57 01/23/22 17:43 01/23/22 18:16 Temperature 97.6 F 97.7 F 98.4 F Pulse Rate 87 86 94 H Respiratory Rate 18 18 18 Blood Pressure 149/83 H 137/79 131/73 02 Sat by Pulse Oximetry 98 98 99 01/23/22 18:50 01/23/22 19:34 01/23/22 20:06 Temperature 98.4 F 97.7 F 97.7 F Pulse Rate 87 87 90 Respiratory Rate 18 18 18 Blood Pressure 126/79 145/75 H 131/65 02 Sat by Pulse Oximetry 99 97 98 01/23/22 21:28 01/23/22 22:38 01/23/22 22:39 Temperature 97.7 F 97.7 F Pulse Rate 87 83 Respiratory Rate 18 17 Blood Pressure 112/74 145/74 H 02 Sat by Pulse Oximetry 99 96 96 01/24/22 05:06 01/24/22 07:50 Temperature 97.5 F L Pulse Rate 77 Respiratory Rate 17 Blood Pressure 138/76 02 Sat by Pulse Oximetry 96 94 L Labs CBC & Chem 7: 01/21/22 05:53 01/21/22 05:53 Therapy Recommendations Therapy Recommendations: OT Recommendations OT Recommended Discharge Home with Home Health Location PT Recommendations PT Recommended Discharge Home with Outpatient Location PT Recommended Services at Physical Therapy,Occupational Therapy Discharge ST Recommendations Level of Supervision Intermittent Supervision Medication Administration Give Pills in Applesauce Dysphagia Swallow Precautions/ Sitting Upright (90 deg),Small Bites/Sips, Strategies Alternate Liquids/Solids,Sit Upright 30 Minutes Assessment/Plan (1) Ptosis of eyelid, left: Code(s): H02.402 - Unspecified ptosis of left eyelid Status: Acute (2) Generalized weakness: Code(s): R53.1 - Weakness Status: Acute Plan 81 year old woman with right lung NSCLC. She has left upper eyelid ptosis and diplopia due to dysconjugate gaze in the setting of generalized fatigue and weakness. She had noticed dysphagia to thin liquids which is not present today. Onset several weeks ago, though the diplopiawas less apparent to her, probably because the left upper eyelid hangs low enough to cover the pupillary aperture on the left. DDX: third nerve palsy (CT and CTA unremarkable for cause), neuromuscular junction disorder (myasthenia gravis or lambert eaton because of breast cancer or because of the durvalumab) or other paraneoplastic process. MRI did not show any evidence of intracranial metastatic disease that would explain symptoms. 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 I had an extensive discussion yesterday with the rehab team and Dr. Thomason who noted objective improvement in her walking ability and strength since she presented to the rehab unit. Based on her continued cranial nerve symptomatology and seemingly more symptoms later in the day yesterday I do thinkit is appropriate to initiate treatment with IVIG. The patient has had a 6+ week clinical course, has had recent stable respiratory parameters and recent improvement from a physical perspective over the course of the last week and as such I do feel IVIG to be an appropriate treatment. Pt reports improvement in generalized weakness this morning compared to yesterday afternoon. However, she has not worked with PT/OT yet today. She is satting well on 1L via NC, does not appear to be in acute respiratory distress. L upper eyelid ptosis is marginally improved this morning. Pt reports that she noticed an improvement in ptosis this morning when she was looking the mirror. Most recent negative inspiratory force and vital capacity are -41 and 1.5 L respectively. PLAN: Continue IVIG daily for a total of 5 days (oncology, rehab and medicine service informed and agreeable to plan). Added IVF and ASA 2/2 risk of hypercoagulability with initiation of IVIG. Paraneoplastic profile and laboratory evaluation for myasthenia; pending Continue high-dose intravenous steroids, patient has some improvement in the muscle strength of upper extremities, continued weakness of lower extremities worse on the left. Will follow with Heme-onc Continue to monitor for dyspnea c NIF and VC Consider outpatient NCS/EMG Diagnosis, prognosis and treatment options discussed in detail. All questions answered. Patient understands and is agreeable to the plan. I have personally seen and examined the patient on rounds today. I was present for the branch parts of clinical decision making. I agree with the Nurse Practitioner's note other than as stated by me. Documented By: Jarad Walters DO, JOANNE 01/24/22 1 002 Signed By: <Electronically signed by DO JOANNE Walters> 01/24/22 1130 <Electronically signed by Yunior Sullivan DO> 01/24/22 1527 [facility] Work Phone: [phone] 500-784304-11-2022 Progress note Author Yunior Sullivan [facility] January 23, 2022 5:08pm Note Date/Time January 23, 2022 12: 37pm [facility] [address] [place] [address] Neurology Progress Note Signed Patient: Melida Valerio MR#: [id number] : 1940 Acct:[id number] Age/Sex: 81 / F Adm Date: 2 Loc: Room: [address] [place] [address] Type : ADM IN Attending Dr: Dorian Thomason MD Copies to: ~ Date of Service: 01/23/2022 Subjective Subjective Narrative: I saw the patient in follow up. Still with weakness and vision issues. NO acute events overnight. NO new neuro concerns. Was able to walk in rehab during initial eval. Review of Systems Review of Systems Unobtainable due to mental status Exam Physical Exam Vital Signs: Temp Pulse Resp BP Pulse Ox 97.6 F 78 16 166/84 H 99 01/23/22 05:00 01/23/22 05:00 01/23/22 05:00 01/23/22 05:00 01/23/22 05:00 Neurological exam: General: The patient is awake alert and oriented.? Language is intact. Neurovascular exam: No carotid bruits.? Regular rate and rhythm Cranial nerves: Pupils equal round reactive light and accommodation, fundoscopicexam is normal, extraocular movements Are impaired on the left with left eye ptosis, visual valentin are full to confrontation, sensations intact in the face, hearing is intact to finger rub, palate elevates bilaterally, tongue protrudes midline, shoulder shrug is symmetric. Neck flexion/extension is 4+ out of 5 Motor: Strength testing is 5- out of 5 in all 4 extremities, deep tendon reflexes are 1+ and symmetric throughout, plantar reflexes flexor, tone is normal throughout. Sensory: light touch intact in all 4 extremities Cerebellar/gait: No ataxia noted on finger to nose or gait testing. Objective Vital Signs Vital Signs: Vital Signs - 24 hr 01/22/22 14:56 01/22/22 16:00 01/23/22 05:00 Temperature 98.1 F 97.6 F Pulse Rate 77 78 Respiratory Rate 16 Blood Pressure 139/67 166/84 H 02 Sat by Pulse Oximetry 97 98 99 Labs CBC & Chem 7: 01/21/22 05:53 01/21/22 05:53 Therapy Recommendations Therapy Recommendations: OT Recommendations OT Recommended Discharge Home with Home Health Location PT Recommendations PT Recommended Discharge Home with Outpatient Location PT Recommended Services at Physical Therapy,Occupational Therapy Discharge ST Recommendations Level of Supervision Intermittent Supervision Medication Administration Give Pills in Applesauce Dysphagia Swallow Precautions/ Sitting Upright (90 deg),Small Bites/Sips, Strategies Alternate Liquids/Solids,Sit Upright 30 Minutes Assessment/Plan (1) Diplopia: Code(s): H53.2 - Diplopia Status: Acute Plan 81 year old woman with right lung NSCLC. She has left upper eyelid ptosis and diplopia due to dysconjugate gaze in the setting of generalized fatigue and weakness. She had noticed dysphagia to thin liquids which is not present today. Onset several weeks ago, though the diplopiawas less apparent to her, probably because the left upper eyelid hangs low enough to cover the pupillary aperture on the left. DDX: third nerve palsy (CT and CTA unremarkable for cause), neuromuscular junction disorder (myasthenia gravis or lambert eaton because of breast cancer or because of the durvalumab) or other paraneoplastic process. MRI did not show any evidence of intracranial metastatic disease that would explain symptoms. 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 Patient continues to have left eye ptosis which impairs left upper field of vision, this is similar to her presentation on admission.? Patient continues to report a bandlike sensation around her upper abdomen with some dyspnea associated.? Some concern for diaphragmatic weakness secondary to these symptoms.? Patient is going for an upper GI scope today with some concern for post radiation changes or hiatal hernia.? Patient also has some mild inspiratory wheezing bilaterally on exam, saturations have been good in high 90s on 1-2 L via nasal cannula I had an extensive discussion today with the rehab team and Dr. Thomason who noted objective improvement in her walking ability and strength since she presented tothe rehab unit. Based on her continued cranial nerve symptomatology and seemingly more symptoms later in the day today I do think it is appropriate to initiate treatment with IVIG. The patient has had a 6+ week clinical course, Has had recent stable respiratory parameters and recent improvement from a physical perspective over the course of the last week and as such I do feel IVIGto be an appropriate treatment. PLAN: start IVIG daily for 5 days (oncology, rehab and medicine service informed and agreeable to plan) Obtain paraneoplastic profile and laboratory evaluation for myasthenia. Continue high-dose intravenous steroids, patient has some improvement in the muscle strength of upper extremities, continued weakness of lower extremities worse on the left. Will follow with Heme-onc Continue to monitor for dyspnea: NIF and VC ordered for 2 x per day Consider outpatient NCS/EMG Diagnosis, prognosis and treatment options discussed in detail. All questions answered. Patient understands and is agreeable to the plan. I have personally seen and examined the patient on rounds today. I was present for the branch parts of clinical decision making. I agree with the Nurse Practitioner's note other than as stated by me. Documented By: Yunior Sullivan DO 2 1231 Signed By: <Electronically signed by Yunior Sullivan DO> 01/23/22 1708 [facility] Work Phone: 1([phone]) 181-815904-11-2022 History and physical note Author Dorian Thomason [facility] January 23, 2022 1:45pm Note Date/Time January 20, 2022 7:11 pm [facility] [address] [place] [address] Physiatry (Rehab) H&P Signed with Addenda Patient: Melida Valerio MR#: [id number] : 1940 Acct:[id number] Age/Sex: 81 / F Adm Date: 2 Loc: Room: 5O8649-8 Type : ADM IN Attending Dr: Dorian Thomason MD Copies to: DO Dorian Teague MD~ ADDENDUM1 Please use ICD 10 code G62.0 (drug induced polyneuropathy/chemo) as admission diagnosis instead of G62.9 (unspecified polyneuropathy) Addendum Documented By: Dorian Thomason MD 01/23/22 1345 Addendum Signed By: <Electronically signed by Dorian Thomason MD> 01/23/22 1345 Date of Service: 01/20/2022 HPI The patient was seen and examined on: 01/20/22 History of Present Illness: Ms. Valerio is a 81 year old female admitted to rehab with multifactorial functional decline in setting of NSCLC s/p chemoradiation and subsequent maintenance immunotherapy, which is now on hold. She presented directly form oncology with generalized weakness, difficulty caring for self, increased oxygen needs, noted to have some ptosis and dysphagia. Differential is broad and includes NMJ disorder. She's been treated with high dose steroids, to be maintained until outpatient f/u with oncology. She did have some dysphagia and underwent endoscopy with dilatation for esophageal spasm, noted to have mahendra esophagitis and placed on diflucan. She has recurrent c. diff, should have outpatient consult with Dr. Tran. She feels better than on admission. Still weak. Plan is to return home. Notessome right neck pain and weakness, left ptosis, right arm weakness, left leg weakness. 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 Nicotine dependence, cigarettes, in remission Pernicious anemia Primary insomnia Surgical History History of appendectomy History of hernia repair History of hysterectomy History of left breast biopsy History of tonsillectomy Family History Other Breast cancer Pancreatic cancer Prostate cancer Social History Smoking Status: Former smoker Tobacco Type: cigarettes Substance Use Type: None Review of Systems Constitutional Constitutional: Reports system reviewed and no additional complaints, except as documented, Reports fatigue and Reports frequent falls Eyes Eyes: Reports system reviewed and no additional complaints, except as documented Comments: + left ptosis ENT Ears, Nose, Mouth, and Throat: Reports system reviewed and no additional complaints, except as documented Comments: pain with swallowing Cardiovascular Cardiovascular: Reports system reviewed and no additional complaints, except as documented Respiratory Respiratory: Reports system reviewed and no additional complaints, except as documented Gastrointestinal Gastrointestinal: Reports system reviewed and no additional complaints, except as documented and Reports abdominal pain Genitourinary Genitourinary: Reports system reviewed and no additional complaints, except as documented Musculoskeletal Musculoskeletal: Reports system reviewed and no additional complaints, except asdocumented and Reports abnormal gait Integumentary/Breasts Skin/Breast: Reports system reviewed and no additional complaints, except as documented Neurologic Neurologic: Reports system reviewed and no additional complaints, except as documented, Reports disequilibrium, Reports frequent falls, Reports paresthesiasand Reports weakness Psychiatric Psychiatric: Reports system reviewed and no additional complaints, except as documented Endocrine Endocrine: Reports fatigue Meds Medications and Allergies Allergies RADHA Inhibitors Allergy (Verified 01/16/22 14:42) Unknown Reaction erythromycin base Allergy (Verified 01/16/22 14:42) Unknown Reaction rivaroxaban [From Xarelto] Allergy (Verified 01/16/22 14:42) Unknown Reaction tiotropium [From Spiriva with HandiHaler] Allergy (Verified 01/16/22 14:42) Unknown Reaction Home and Active Meds: Home Medications albuterol sulfate 90 mcg/actuation aerosol inhaler (ProAir HFA) 2 puff INHALATION Q4H PRN 06/07/21 [History Confirmed 01/20/22] amiodarone 200 mg tablet 200 mg PO DAILY 06/07/21 [History Confirmed 01/20/22] amlodipine 5 mg tablet 5 mg PO DAILY 06/07/21 [History Confirmed 01/20/22] fluticasone 250 mcg-salmeterol 50 mcg/dose blistr powdr for inhalation (Advair Diskus) 1 inh INHALATION Q12H 06/07/21 [History Confirmed 01/20/22] hydrochlorothiazide 25 mg tablet 25 mg PO DAILY 06/07/21 [History Confirmed 01/20/22] levothyroxine 112 mcg tablet 112 mcg PO DIRECTED 06/07/21 [History Confirmed 01/20/22] levothyroxine 125 mcg tablet 125 mcg PO QMWF 06/07/21 [History Confirmed 01/20/22] potassium chloride 20 mEq tablet,extended release 20 meq PO DAILY #30 tab 11/23/21 [Rx Confirmed 01/20/22] vancomycin 125 mg capsule 125 mg PO DIRECTED #98 cap 12/23/21 [Rx Confirmed 01/20/22] lorazepam 0.5 mg tablet 0.5 mg PO HS PRN 30 Days #60 tab 01/10/22 [Rx Confirmed 01/20/22] cyanocobalamin (vitamin B-12) 5,000 mcg capsule 5,000 mcg PO DAILY #30 cap 01/20/22 [Rx Confirmed 01/20/22] fluconazole 100 mg tablet 100 mg PO QAM 6 Days #6 tab 01/20/22 [Rx Confirmed 01/20/22] prednisone 10 mg tablet 60 mg PO DAILY 14 Days #84 tab 01/20/22 [Rx Confirmed 01/20/22] Active Medications Albuterol (Albuterol Hfa 60 Puff/8 Gram Inhaler) 2 puff INHALATION Q4H PRN PRN Reason: Dyspnea Stop: 01/20/23 19:00 Amiodarone HCl (Amiodarone 200 Mg Tablet) 200 mg PO DAILY ALEXA Stop: 01/21/23 08:59 Amlodipine Besylate (Amlodipine 5 Mg Tablet) 5 mg PO DAILY ALEXA Stop: 01/21/23 08:59 Fluconazole (Fluconazole 100 Mg Tablet) 100 mg PO QAM ALEXA Stop: 02/04/22 08:59 Hydrochlorothiazide (Hydrochlorothiazide 25 Mg Tablet) 25 mg PO DAILY ALEXA Stop: 01/21/23 08:59 Levothyroxine Sodium (Levothyroxine 112 Mcg Tablet) 112 mcg PO DIRECTED ALEXA Stop: 01/20/23 19:14 Levothyroxine Sodium (Levothyroxine 125 Mcg Tablet) 125 mcg PO QMWF ALEXA Stop: 01/20/23 19:14 Lorazepam (Lorazepam 0.5 Mg Tablet) 0.5 mg PO HS PRN PRN Reason: Sleep Stop: 07/19/22 19:00 Non-Formulary Medication (Cyanocobalamin (Vitamin B-12)) 5,000 mcg PO DAILY ALEXA Stop: 01/21/23 08:59 Non-Formulary Medication (Fluticasone Propion-Salmeterol [Advair Diskus]) 1 inhINHALATION Q12H ALEXA Stop: 01/20/23 19:14 Non-Formulary Medication (Potassium Chloride) 20 meq PO DAILY ALEXA Stop: 01/21/23 08:59 Prednisone (Prednisone 20 Mg Tablet) 60 mg PO DAILY ALEXA Stop: 02/04/22 08:59 Sucralfate (Sucralfate Susp 1 Gm/10 Ml Udc) 1 gm PO TID.AC.HS [facility] Stop: 01/20/23 21:59 Vancomycin HCl (Vancomycin Hcl 250 Mg Capsule) 250 mg PO DAILY ALEXA Stop: 01/28/22 08:59 Exam Physical Exam Vital Signs: Temp Pulse Resp BP Pulse Ox 97.8 F 84 18 132/72 99 01/20/22 19:00 01/20/22 19:00 01/20/22 19:00 01/20/22 19:00 01/20/22 19:00 Const General: cooperative and no acute distress Orientation: alert, awake and oriented x3 HEENT Head: abrasion and contusion Eyes Other: + ptosis Neck Other: neck extension weakness Resp Effort & Inspection: normal respiratory effort Auscultation: clear to auscultation bilaterally Other: nasal cannula GI Inspection: normal to inspection Neuro Cognition: normal cognition Speech: speech normal Gait: ataxic Motor: strength abnormal (4/5 RUE, LLE) Sensory Exam: other (abnormal stocking glove distribution) Results Additional Results Results Comment: I reviewed clinical lab tests, radiology reports and obtained and summated medical records and have ordered follow up lab tests and imaging studies as needed for rehabilitation care. 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 Medical/ Functional Prognosis: Good Anticipated Functional Outcomes/Goals and Interventions: -Therapy Functional Outcome/Goal: Mobility/Locomotion: Patient likely to be modified independent with ambulation with assistive device. Anticipated interventions: Physician management, PT, Nutrition, Rehab Nursing - Therapy Functional Outcome/Goal: Self Care: Patient likely to be functionally modified independent for activities of daily living using assistive / adaptive equipment as needed. Anticipated interventions: Physician management, PT, OT, Nutrition, Rehab Nursing - Therapy Functional Outcome/Goal: Bladder/Bowel Management: Patient likely to be modified independent with bladder care and independent with bowel care. Anticipated interventions: Physician management, PT, OT, Nutrition, Rehab Nursing -Therapy Functional Outcome/Goal: Communication/Cognition: Patient will be able to communicate fully and be safe cognitively. Anticipated interventions: Physician management, PT, OT, Nutrition, Rehab Nursing -Therapy Functional Outcome/Goal: Patient will have adequate pain control less than 4/10 and understand how to take pain medications to achieve pain control. Anticipated interventions: Physician management, PT, OT, Nutrition, Rehab Nursing -Therapy Functional Outcome/Goal: Patient will improve endurance to be able to tolerate all daily self care activities and avocational activities. Anticipated interventions: Physician management, PT, OT, Nutrition, Rehab Nursing -Therapy Functional Outcome/Goal: Patient will understand and assimilate / integrate education regarding management of their medical conditions to maintainhealth and wellbeing. Anticipated interventions: Physician management, PT, OT, Nutrition, Rehab Nursing Required Therapy PT: 1.5 hour per day at least 5 days per week with additional therapy on as needed basis. Comments: PT to improve pt's strength, endurance, bed mobility, transfers (sit-stand), standing balance, gait quality on level surfaces and stairs, coordination and functional ADL skills. Will also work to improve pt's safety awareness during transfers and ambulation. OT: 1.5 hour per day at least 5 days per week with additional therapy on as needed basis. Comments: OT for basic ADL re-training (bathing, dressing, toileting, continence, grooming, feeding, transferring), to increase activity tolerance andfunctional mobility and to evaluate for adaptive and assistive devices. Will work to improve pt's endurance and educate pt on fall prevention and energy conservation techniques-pacing strategies and proper breathing techniques duringfunctional tasks. Other: Nutrition, Rehab nursing, Wound, P&O RATIONALE FOR IRF ADMISSION: Patient has both medical and functional complexities that require 24 hour daily monitoring and intervention from Slip Seat Coverer as well as other consulting physicians including internal medicine as well as 24 hour daily geothermal heat pump machinist nursing - for medical safe / optimal management. Patient requires interdisciplinary therapy team rehabilitation care including OT, PT, SW, Psychology, Rehab Nursing, requires and can tolerate at least 3 hours of daily OT and PT therapy at least 5 days weekly. The following medical conditions significantly impact the rehabilitation process and are beingaddressed daily and can not be managed at home or in a lesser intense medical setting: Refer to above problem oriented plan of care Assessment/Plan (1) Generalized weakness: Code(s): R53.1 - Weakness Status: Acute (2) Dysphagia: Code(s): R13.10 - Dysphagia, unspecified Status: Acute (3) Ptosis of eyelid, left: Code(s): H02.402 - Unspecified ptosis of left eyelid Status: Acute (4) Diplopia: Code(s): H53.2 - Diplopia Status: Acute (5) Neuropathy: Code(s): G62.9 - Polyneuropathy, unspecified Status: Acute (6) Clostridium difficile infection: Code(s): A49.8 - Other bacterial infections of unspecified site Status: Acute (7) Minor closed head injury: Code(s): S00.90XA - Unspecified superficial injury of unspecified part of head, initial encounter Status: Acute (8) Non-small cell lung cancer (NSCLC): Code(s): C34.90 - Malignant neoplasm of unspecified part of unspecified bronchus or lung Status: Acute (9) Mahendra esophagitis: Code(s): B37.81 - Candidal esophagitis Status: Acute (10) Impaired mobility and activities of daily living: Code(s): Z74.09 - Other reduced mobility; Z78.9 - Other specified health status Status: Acute (11) Peripheral polyneuropathy: Code(s): G62.9 - Polyneuropathy, unspecified Status: Acute Plan Ms. 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 Immunotherapy on hold Continue high dose oral steroid until outpatient follow up Complete vancomycin for c. 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 setting of radiation therapy, depending on location of that, postural re-education, could consider outpatient bracing if needed Hospitalist to assist with management of comorbid medical conditions Pain control: Continue current management Bowel and bladder: Monitor for loose stools, has h/o some urinary incontinence Skin: Pressure ulcer prophylaxis, monitor abrasions/hematoma DVT prophylaxis: She did not have pharmacologic prophylaxis on acute care, I don't see a contraindication to lovenox, she's righ risk with her active cancer and limited mobility Functional status:Needs assist Discharge planning:Home in 1-2 weeks. Documented By: Dorian Thomason MD 01/20/221909 Signed By: <Electronically signed by Dorian Thomason MD> 01/21/22 5939 [facility] Work Phone: [phone]) 342-984804-11-2022 Progress note Author Dorian Thomason [facility] January 23, 2022 1:42pm Note Date/Time January 23, 2022 1:4 1pm [facility] [address] [place] [address] Physiatry(Rehab) Progress Note Signed Patient: Melida Valerio MR#: [id number] : 1940 Acct:[id number] Age/Sex: 81 / F Adm Date: 2 Loc: Room: [address] [place] [address] Type : ADM IN Attending Dr: Dorian Thomason MD Copies to: ~ Date of Service: 01/23/2022 Subjective Subjective Narrative: Ms. Valerio is a 81 year old female admitted to rehab with multifactorial functional decline in setting of NSCLC s/p chemoradiation and subsequent maintenance immunotherapy, which is now on hold. She presented directly form oncology with generalized weakness, difficulty caring for self, increased oxygen needs, noted to have some ptosis and dysphagia. Differential is broad and includes NMJ disorder. She's been treated with high dose steroids, to be maintained until outpatient f/u with oncology. She did have some dysphagia and underwent endoscopy with dilatation for esophageal spasm, noted to have mahendra esophagitis and placed on diflucan. She has recurrent c. diff, should have outpatient consult with Dr. Tran. Interval history: Continue on high-dose steroids until outpatient follow-up She is reporting some pain and dry eye on the left, she is wondering if there isany topical treatment She surprised that her level of fatigue following therapy sessions She is hopeful that her strength will improve to the point where she can be discharged over the weekend Review of Systems Constitutional Constitutional: Reports system reviewed and no additional complaints, except as documented, Reports fatigue, Reports frequent falls and Reports weakness Eyes Eyes: Reports system reviewed and no additional complaints, except as documented Comments: + left ptosis ENT Ears, Nose, Mouth, and Throat: Reports system reviewed and no additional complaints, except as documented and Reports disequilibrium Comments: pain with swallowing Cardiovascular Cardiovascular: Reports system reviewed and no additional complaints, except as documented Respiratory Respiratory: Reports system reviewed and no additional complaints, except as documented Gastrointestinal Gastrointestinal: Reports system reviewed and no additional complaints, except as documented and Reports abdominal pain Genitourinary Genitourinary: Reports system reviewed and no additional complaints, except as documented Musculoskeletal Musculoskeletal: Reports system reviewed and no additional complaints, except asdocumented and Reports abnormal gait Integumentary/Breasts Skin/Breast: Reports system reviewed and no additional complaints, except as documented Neurologic Neurologic: Reports system reviewed and no additional complaints, except as documented, Reports abnormal gait, Reports disequilibrium, Reports frequent falls, Reports paresthesias and Reports weakness Psychiatric Psychiatric: Reports system reviewed and no additional complaints, except as documented Endocrine Endocrine: Reports fatigue Exam Physical Exam Vital Signs: Temp Pulse Resp BP Pulse Ox 97.6 F 78 16 166/84 H 99 01/23/22 05:00 01/23/22 05:00 01/23/22 05:00 01/23/22 05:00 01/23/22 05:00 Const General: cooperative and no acute distress Orientation: alert, awake and oriented x3 HEENT Head: abrasion and contusion Resp Effort & Inspection: normal respiratory effort Auscultation: clear to auscultation bilaterally GI Inspection: normal to inspection Neuro Cognition: normal cognition Speech: speech normal Gait: ataxic Motor: strength abnormal (4/5 RUE, LLE) Sensory Exam: other (abnormal stocking glove distribution) Objective Labs CBC & Chem 7: 01/21/22 05:53 01/21/22 05:53 Medications and Allergies Allergies and Active Meds: Allergies RADHA Inhibitors Allergy (Verified 01/16/22 14:42) Unknown Reaction erythromycin base Allergy (Verified 01/16/22 14:42) Unknown Reaction rivaroxaban [From Xarelto] Allergy (Verified 01/16/22 14:42) Unknown Reaction tiotropium [From Spiriva with HandiHaler] Allergy (Verified 01/16/22 14:42) Unknown Reaction Active Medications Generic Name Dose Route Start Last Admin Trade Name Freq PRN Reason Stop Dose Admin Acetaminophen 500 mg 01/20/22 19:11 01/22/22 21:43 Acetaminophen 500 Mg Tablet PO 01/20/23 19:10 500 mg Q4H PRN Administration Pain Al Hydrox/Mg Hydrox/Simethicone 30 ml 01/20/22 19:11 Mag Hydrox/Al Hydrox/Simeth 30 Ml Udc PO 01/20/23 19:10 Q4H PRN Indigestion Albuterol 2 puff 01/20/22 19:01 01/21/22 18:43 Albuterol Hfa 60 Puff/8 Gram Inhaler INHALATION 01/20/23 19:00 2 puff Q4H PRN Administration Dyspnea Amiodarone HCl 200 mg 01/21/22 09:00 01/23/22 09:34 Amiodarone 200 Mg Tablet PO 01/21/23 08:59 200 mg DAILY ALEXA Administration Amlodipine Besylate 5 mg 01/21/22 09:00 01/23/22 09:34 Amlodipine 5 Mg Tablet PO 01/21/23 08:59 5 mg DAILY ALEXA Administration Bisacodyl 10 mg 01/20/22 19:11 Bisacodyl 10 Mg Supp.Rect WA 01/20/23 19:10 DAILY PRN Constipation Cyanocobalamin 5,000 mcg 01/21/22 09:00 01/23/22 09:34 Cyanocobalamin 1,000 Mcg Tablet PO 01/21/23 08:59 5,000 mcg DAILY ALEXA Administration Docusate Sodium 100 mg 01/20/22 19:11 01/23/22 09:47 Docusate 100 Mg Capsule PO 01/20/23 19:10 100 mg BID PRN Administration Constipation Docusate Sodium 283 mg 01/20/22 19:11 Docusate Enema 283 Mg/5 Ml Enema WA 01/20/23 19:10 DAILY PRN Constipation Fluconazole 100 mg 01/21/22 09:00 01/23/22 09:35 Fluconazole 100 Mg Tablet PO 02/04/22 08:59 100 mg QAM ALEXA Administration Hydrochlorothiazide 25 mg 01/21/22 09:00 01/23/22 09:35 Hydrochlorothiazide 25 Mg Tablet PO 01/21/23 08:59 25 mg DAILY ALEXA Administration Lactulose 30 gm 01/20/22 19:11 Lactulose 20 Gm/30 Ml Udc PO 01/20/23 19:10 DAILY PRN Constipation Levothyroxine Sodium 112 mcg 01/21/22 06:30 01/22/22 06:20 Levothyroxine 112 Mcg Tablet PO 01/21/23 06:29 112 mcg [id number] ALEXA Administration Levothyroxine Sodium 125 mcg 01/23/22 06:30 01/23/22 05:31 Levothyroxine 125 Mcg Tablet PO 01/23/23 06:29 Not Given [id number] ALEXA Lorazepam 0.5 mg 01/20/22 19:01 Lorazepam 0.5 Mg Tablet PO 07/19/22 19:00 HS PRN Sleep Potassium Chloride 20 meq 01/21/22 09:00 01/23/22 09:35 Potassium Chloride Er 20 Meq Tab.Er.Prt PO 01/21/23 08:59 20 meq DAILY ALEXA Administration Prednisone 60 mg 01/21/22 09:00 01/23/22 09:36 Prednisone 20 Mg Tablet PO 02/04/22 08:59 60 mg DAILY ALEXA Administration Fluticasone/Salmeterol 1 puff 01/20/22 21:00 01/23/22 06:19 Fluticasone/Salmeterol 113-14 Mcg 60 Puff Inhaler INHALATION 01/20/23 20:59 1 puff Q12HR ALEXA Administration Sennosides 2 tab 01/21/22 12:00 Sennosides 8.6 Mg Tablet PO 01/21/23 11:59 DAILY@12 PRN If no BM in 2 days Sodium Chloride 0 ml 01/20/22 19:11 Sodium Chloride 0.9 % 10 Ml Syringe IV-PUSH 01/20/23 19:10 PRN PRN Flush Sodium Chloride 10 ml 01/21/22 06:00 01/23/22 05:15 Sodium Chloride 0.9 % 10 Ml Syringe IV-PUSH 01/21/23 05:59 10 ml Q8H ALEXA Administration Sucralfate 1 gm 01/20/22 22:00 01/23/22 11:50 Sucralfate Susp 1 Gm/10 Ml Udc PO 01/20/23 21:59 Not Given TID.AC.HS ALEXA Vancomycin HCl 250 mg 01/21/22 09:00 01/23/22 09:36 Vancomycin Hcl 250 Mg Capsule PO 01/28/22 08:59 250 mg DAILY ALEXA Administration Assessment/Plan Assessment/Plan (1) Generalized weakness: Code(s): R53.1 - Weakness Status: Acute (2) Dysphagia: Code(s): R13.10 - Dysphagia, unspecified Status: Acute (3) Ptosis of eyelid, left: Code(s): H02.402 - Unspecified ptosis of left eyelid Status: Acute (4) Diplopia: Code(s): H53.2 - Diplopia Status: Acute (5) Neuropathy: Code(s): G62.9 - Polyneuropathy, unspecified Status: Acute (6) Clostridium difficile infection: Code(s): A49.8 - Other bacterial infections of unspecified site Status: Acute (7) Minor closed head injury: Code(s): S00.90XA - Unspecified superficial injury of unspecified part of head, initial encounter Status: Acute (8) Non-small cell lung cancer (NSCLC): Code(s): C34.90 - Malignant neoplasm of unspecified part of unspecified bronchus or lung Status: Acute (9) Mahendra esophagitis: Code(s): B37.81 - Candidal esophagitis Status: Acute (10) Impaired mobility and activities of daily living: Code(s): Z74.09 - Other reduced mobility; Z78.9 - Other specified health status Status: Acute (11) Peripheral polyneuropathy: Code(s): G62.9 - Polyneuropathy, unspecified Status: Acute Plan Ms. 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 Add topical modalities to left eye, lubricating eyedrops, warm compresses Walked 15' on initial eval Immunotherapy on hold Continue high dose oral steroid until outpatient follow up Complete vancomycin for c. 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 setting of radiation therapy, depending on location of that, postural re-education, could consider outpatient bracing if needed Hospitalist to assist with management of comorbid medical conditions Pain control: Continue current management Bowel and bladder: Monitor for loose stools, has h/o some urinary incontinence Skin: Pressure ulcer prophylaxis, monitor abrasions/hematoma DVT prophylaxis: She did not have pharmacologic prophylaxis on acute care, I don't see a contraindication to lovenox, she's righ risk with her active cancer and limited mobility Functional status:Needs assist Discharge planning:Home in 1-2 weeks. Documented By: Dorian Thomason MD 01/23/22 1338 Signed By: <Electronically signed by Dorian Thomason MD> 01/23/22 1342 [facility] Work Phone: [phone]) 258-366604-10-2022 Progress note Author Dorian Thomason [facility] January 22, 2022 2:29pm Note Date/Time January 22, 2022 2:2 9pm [facility] [address] [place] [address] Physiatry(Rehab) Progress Note Signed Patient: Melida Valerio MR#: [id number] : 1940 Acct:[id number] Age/Sex: 81 / F Adm Date: 2 Loc: Room: [address] [place] [address] Type : ADM IN Attending Dr: Dorian Thomason MD Copies to: ~ Date of Service: 01/22/2022 Subjective Subjective Narrative: Ms. Valerio is a 81 year old female admitted to rehab with multifactorial functional decline in setting of NSCLC s/p chemoradiation and subsequent maintenance immunotherapy, which is now on hold. She presented directly form oncology with generalized weakness, difficulty caring for self, increased oxygen needs, noted to have some ptosis and dysphagia. Differential is broad and includes NMJ disorder. She's been treated with high dose steroids, to be maintained until outpatient f/u with oncology. She did have some dysphagia and underwent endoscopy with dilatation for esophageal spasm, noted to have mahendra esophagitis and placed on diflucan. She has recurrent c. diff, should have outpatient consult with Dr. Tran. 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 Review of Systems Constitutional Constitutional: Reports system reviewed and no additional complaints, except as documented, Reports fatigue, Reports frequent falls and Reports weakness Eyes Eyes: Reports system reviewed and no additional complaints, except as documented Comments: + left ptosis ENT Ears, Nose, Mouth, and Throat: Reports system reviewed and no additional complaints, except as documented and Reports disequilibrium Comments: pain with swallowing Cardiovascular Cardiovascular: Reports system reviewed and no additional complaints, except as documented Respiratory Respiratory: Reports system reviewed and no additional complaints, except as documented Gastrointestinal Gastrointestinal: Reports system reviewed and no additional complaints, except as documented and Reports abdominal pain Genitourinary Genitourinary: Reports system reviewed and no additional complaints, except as documented Musculoskeletal Musculoskeletal: Reports system reviewed and no additional complaints, except asdocumented and Reports abnormal gait Integumentary/Breasts Skin/Breast: Reports system reviewed and no additional complaints, except as documented Neurologic Neurologic: Reports system reviewed and no additional complaints, except as documented, Reports abnormal gait, Reports disequilibrium, Reports frequent falls, Reports paresthesias and Reports weakness Psychiatric Psychiatric: Reports system reviewed and no additional complaints, except as documented Endocrine Endocrine: Reports fatigue Exam Physical Exam Vital Signs: Temp Pulse Resp BP Pulse Ox 97.6 F 83 20 137/74 98 01/22/22 06:00 01/22/22 06:00 01/22/22 06:00 01/22/22 06:00 01/22/22 07:30 Const General: cooperative and no acute distress Orientation: alert, awake and oriented x3 HEENT Head: abrasion and contusion Resp Effort & Inspection: normal respiratory effort Auscultation: clear to auscultation bilaterally GI Inspection: normal to inspection Neuro Cognition: normal cognition Speech: speech normal Gait: ataxic Motor: strength abnormal (4/5 RUE, LLE) Sensory Exam: other (abnormal stocking glove distribution) Objective Labs CBC & Chem 7: 01/21/22 05:53 01/21/22 05:53 Medications and Allergies Allergies and Active Meds: Allergies RADHA Inhibitors Allergy (Verified 01/16/22 14:42) Unknown Reaction erythromycin base Allergy (Verified 01/16/22 14:42) Unknown Reaction rivaroxaban [From Xarelto] Allergy (Verified 01/16/22 14:42) Unknown Reaction tiotropium [From Spiriva with HandiHaler] Allergy (Verified 01/16/22 14:42) Unknown Reaction Active Medications Generic Name Dose Route Start Last Admin Trade Name Freq PRN Reason Stop Dose Admin Acetaminophen 500 mg 01/20/22 19:11 01/21/22 23:21 Acetaminophen 500 Mg Tablet PO 01/20/23 19:10 500 mg Q4H PRN Administration Pain Al Hydrox/Mg Hydrox/Simethicone 30 ml 01/20/22 19:11 Mag Hydrox/Al Hydrox/Simeth 30 Ml Udc PO 01/20/23 19:10 Q4H PRN Indigestion Albuterol 2 puff 01/20/22 19:01 01/21/22 18:43 Albuterol Hfa 60 Puff/8 Gram Inhaler INHALATION 01/20/23 19:00 2 puff Q4H PRN Administration Dyspnea Amiodarone HCl 200 mg 01/21/22 09:00 01/22/22 08:51 Amiodarone 200 Mg Tablet PO 01/21/23 08:59 200 mg DAILY ALEXA Administration Amlodipine Besylate 5 mg 01/21/22 09:00 01/22/22 08:51 Amlodipine 5 Mg Tablet PO 01/21/23 08:59 5 mg DAILY ALEXA Administration Bisacodyl 10 mg 01/20/22 19:11 Bisacodyl 10 Mg Supp.Rect WA 01/20/23 19:10 DAILY PRN Constipation Cyanocobalamin 5,000 mcg 01/21/22 09:00 01/22/22 08:50 Cyanocobalamin 1,000 Mcg Tablet PO 01/21/23 08:59 5,000 mcg DAILY ALEXA Administration Docusate Sodium 100 mg 01/20/22 19:11 Docusate 100 Mg Capsule PO 01/20/23 19:10 BID PRN Constipation Docusate Sodium 283 mg 01/20/22 19:11 Docusate Enema 283 Mg/5 Ml Enema WA 01/20/23 19:10 DAILY PRN Constipation Fluconazole 100 mg 01/21/22 09:00 01/22/22 08:51 Fluconazole 100 Mg Tablet PO 02/04/22 08:59 100 mg QAM ALEXA Administration Hydrochlorothiazide 25 mg 01/21/22 09:00 01/22/22 08:51 Hydrochlorothiazide 25 Mg Tablet PO 01/21/23 08:59 25 mg DAILY ALEXA Administration Lactulose 30 gm 01/20/22 19:11 Lactulose 20 Gm/30 Ml Udc PO 01/20/23 19:10 DAILY PRN Constipation Levothyroxine Sodium 112 mcg 01/21/22 06:30 01/22/22 06:20 Levothyroxine 112 Mcg Tablet PO 01/21/23 06:29 112 mcg [id number]@0630 ALEXA Administration Levothyroxine Sodium 125 mcg 01/23/22 06:30 Levothyroxine 125 Mcg Tablet PO 01/23/23 06:29 [id number] ALEXA Lorazepam 0.5 mg 01/20/22 19:01 Lorazepam 0.5 Mg Tablet PO 07/19/22 19:00 HS PRN Sleep Potassium Chloride 20 meq 01/21/22 09:00 01/22/22 08:51 Potassium Chloride Er 20 Meq Tab.Er.Prt PO 01/21/23 08:59 20 meq DAILY ALEXA Administration Prednisone 60 mg 01/21/22 09:00 01/22/22 08:51 Prednisone 20 Mg Tablet PO 02/04/22 08:59 60 mg DAILY ALEXA Administration Fluticasone/Salmeterol 1 puff 01/20/22 21:00 01/22/22 05:22 Fluticasone/Salmeterol 113-14 Mcg 60 Puff Inhaler INHALATION 01/20/23 20:59 1 puff Q12HR ALEXA Administration Sennosides 2 tab 01/21/22 12:00 Sennosides 8.6 Mg Tablet PO 01/21/23 11:59 DAILY@12 PRN If no BM in 2 days Sodium Chloride 0 ml 01/20/22 19:11 Sodium Chloride 0.9 % 10 Ml Syringe IV-PUSH 01/20/23 19:10 PRN PRN Flush Sodium Chloride 10 ml 01/21/22 06:00 01/22/22 14:00 Sodium Chloride 0.9 % 10 Ml Syringe IV-PUSH 01/21/23 05:59 10 ml Q8H ALEXA Administration Sucralfate 1 gm 01/20/22 22:00 01/22/22 11:48 Sucralfate Susp 1 Gm/10 Ml Udc PO 01/20/23 21:59 Not Given TID.AC.HS ALEXA Vancomycin HCl 250 mg 01/21/22 09:00 01/22/22 08:51 Vancomycin Hcl 250 Mg Capsule PO 01/28/22 08:59 250 mg DAILY ALEXA Administration Assessment/Plan Assessment/Plan (1) Generalized weakness: Code(s): R53.1 - Weakness Status: Acute (2) Dysphagia: Code(s): R13.10 - Dysphagia, unspecified Status: Acute (3) Ptosis of eyelid, left: Code(s): H02.402 - Unspecified ptosis of left eyelid Status: Acute (4) Diplopia: Code(s): H53.2 - Diplopia Status: Acute (5) Neuropathy: Code(s): G62.9 - Polyneuropathy, unspecified Status: Acute (6) Clostridium difficile infection: Code(s): A49.8 - Other bacterial infections of unspecified site Status: Acute (7) Minor closed head injury: Code(s): S00.90XA - Unspecified superficial injury of unspecified part of head, initial encounter Status: Acute (8) Non-small cell lung cancer (NSCLC): Code(s): C34.90 - Malignant neoplasm of unspecified part of unspecified bronchus or lung Status: Acute (9) Mahendra esophagitis: Code(s): B37.81 - Candidal esophagitis Status: Acute (10) Impaired mobility and activities of daily living: Code(s): Z74.09 - Other reduced mobility; Z78.9 - Other specified health status Status: Acute (11) Peripheral polyneuropathy: Code(s): G62.9 - Polyneuropathy, unspecified Status: Acute Plan Ms. 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 Walked 15' on initial eval Immunotherapy on hold Continue high dose oral steroid until outpatient follow up Complete vancomycin for c. 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 setting of radiation therapy, depending on location of that, postural re-education, could consider outpatient bracing if needed Hospitalist to assist with management of comorbid medical conditions Pain control: Continue current management Bowel and bladder: Monitor for loose stools, has h/o some urinary incontinence Skin: Pressure ulcer prophylaxis, monitor abrasions/hematoma DVT prophylaxis: She did not have pharmacologic prophylaxis on acute care, I don't see a contraindication to lovenox, she's righ risk with her active cancer and limited mobility Functional status:Needs assist Discharge planning:Home in 1-2 weeks. Documented By: Dorian Thomason MD 01/22/221425 Signed By: <Electronically signed by Dorian Thomason MD> 01/22/22 [address] [facility] Work Phone: [phone] Consult note Author Yrn Kruse [facility] January 22, 2022 11:12am Note Date/Time January 21, 2022 6:48 pm [facility] [address] [place] [address] Hospitalist Consult Note Signed Patient: Melida Valerio MR#: [id number] : 1940 Acct:[id number] Age/Sex: 81 / F Adm Date: 2 Loc: Room: [address] [place] [address] Type : ADM IN Attending Dr: Dorian Thomason MD Copies to: Tonya Balderrama, [employer]IST-C MD Wong Castano,DO Dorian Thomason MD~ HPI DATE OF CONSULTATION: 01/21/22 REQUESTING PROVIDER: Dorian Thomason Consult Narrative Reason for Consult: HTN, GERD, HLD, NSCLC s/p chemoradiation HPI: Patient is a pleasant 81 year old female with PMH of HTN, GERD, HLD, NSCLC s/p chemoradiation followed by immunotherapy now on hold who is admitted to the acute inpatient rehab unit. The patient presented from oncology due to L eyelid ptosis and diplopia and generalized weakness. CTA of the head and neck did not show any acute stenotic lesions.? Brain MRI with and without contrast not show any significant brain abnormality, chronic ischemic changes but no acute findings.?She was followed by oncology and neurology. The etiology of the eye ptosis was thought to be related to chemotherapy effect, third nerve palsy, or neuromuscular junction disorder. She was initiated on high-dose steroids with some improvement in her symptoms. She was also seen by gastroenterology due to difficulty swallowing. She underwent EGD with esophageal dilation. She was placed on diflucan for esophageal candidiasis. She was seen by PT/OT with recommendation for further rehab. Upon medical clearance the patient was transferred to the acute inpatient rehab unit. Hospitalist service has been placed on consult for medical comanagement during the patient's inpatient admission. Patient was seen and examined in her room on 5T. She is resting in bed at time of exam. She states she feels quite fatigued following therapy today. At present she denies headache. States that she does have occasional dizziness, especially with position change. No chest pain. States that she does have somedyspnea with exertion which she states is not unusual for her. Denies abdominalpain or nausea. No lower extremity edema or calf tenderness. Review of Systems Review of Systems Review of systems: 10 point review of systems was obtained and all are negative unless noted below or in the HPI. PMFSH Vaccinated for COVID-19?: Yes Medical History Adenomatous colon polyp Allergic rhinitis Autoimmune hypothyroidism Chronic venous insufficiency Dysuria-frequency syndrome Essential hypertension GERD (gastroesophageal reflux disease) History of left breast cancer lumpectomy, radiation treatment History of tobacco abuse Hyperlipidemia Iron deficiency anemia secondary to blood loss (chronic) snf (current) use of inhaled steroids Nicotine dependence, cigarettes, in remission Pernicious anemia Primary insomnia Surgical History History of appendectomy History of hernia repair History of hysterectomy History of left breast biopsy History of tonsillectomy Family History Other Breast cancer Pancreatic cancer Prostate cancer Social History Smoking Status: Former smoker Tobacco Type: cigarettes Substance Use Type: None Meds Medications and Allergies Allergies RADHA Inhibitors Allergy (Verified 01/16/22 14:42) Unknown Reaction erythromycin base Allergy (Verified 01/16/22 14:42) Unknown Reaction rivaroxaban [From Xarelto] Allergy (Verified 01/16/22 14:42) Unknown Reaction tiotropium [From Spiriva with HandiHaler] Allergy (Verified 01/16/22 14:42) Unknown Reaction Home Medications albuterol sulfate 90 mcg/actuation aerosol inhaler (ProAir HFA) 2 puff INHALATION Q4H PRN 06/07/21 [History Confirmed 01/20/22] amiodarone 200 mg tablet 200 mg PO DAILY 06/07/21 [History Confirmed 01/20/22] amlodipine 5 mg tablet 5 mg PO DAILY 06/07/21 [History Confirmed 01/20/22] fluticasone 250 mcg-salmeterol 50 mcg/dose blistr powdr for inhalation (Advair Diskus) 1 inh INHALATION Q12H 06/07/21 [History Confirmed 01/20/22] hydrochlorothiazide 25 mg tablet 25 mg PO DAILY 06/07/21 [History Confirmed 01/20/22] levothyroxine 112 mcg tablet 112 mcg PO DIRECTED 06/07/21 [History Confirmed 01/20/22] levothyroxine 125 mcg tablet 125 mcg PO QMWF 06/07/21 [History Confirmed 01/20/22] potassium chloride 20 mEq tablet,extended release 20 meq PO DAILY #30 tab 11/23/21 [Rx Confirmed 01/20/22] vancomycin 125 mg capsule 125 mg PO DIRECTED #98 cap 12/23/21 [Rx Confirmed 01/20/22] lorazepam 0.5 mg tablet 0.5 mg PO HS PRN 30 Days #60 tab 01/10/22 [Rx Confirmed 01/20/22] cyanocobalamin (vitamin B-12) 5,000 mcg capsule 5,000 mcg PO DAILY #30 cap 01/20/22 [Rx Confirmed 01/20/22] fluconazole 100 mg tablet 100 mg PO QAM 6 Days #6 tab 01/20/22 [Rx Confirmed 01/20/22] prednisone 10 mg tablet 60 mg PO DAILY 14 Days #84 tab 01/20/22 [Rx Confirmed 01/20/22] Active Medications: Active Medications Generic Name Dose Route Start Last Admin Trade Name Freq PRN Reason Stop Dose Admin Acetaminophen 500 mg 01/20/22 19:11 Acetaminophen 500 Mg Tablet PO 01/20/23 19:10 Q4H PRN Pain Al Hydrox/Mg Hydrox/Simethicone 30 ml 01/20/22 19:11 Mag Hydrox/Al Hydrox/Simeth 30 Ml Udc PO 01/20/23 19:10 Q4H PRN Indigestion Albuterol 2 puff 01/20/22 19:01 Albuterol Hfa 60 Puff/8 Gram Inhaler INHALATION 01/20/23 19:00 Q4H PRN Dyspnea Amiodarone HCl 200 mg 01/21/22 09:00 01/21/22 09:03 Amiodarone 200 Mg Tablet PO 01/21/23 08:59 200 mg DAILY ALEXA Administration Amlodipine Besylate 5 mg 01/21/22 09:00 01/21/22 09:04 Amlodipine 5 Mg Tablet PO 01/21/23 08:59 5 mg DAILY ALEXA Administration Bisacodyl 10 mg 01/20/22 19:11 Bisacodyl 10 Mg Supp.Rect WA 01/20/23 19:10 DAILY PRN Constipation Cyanocobalamin 5,000 mcg 01/21/22 09:00 01/21/22 09:03 Cyanocobalamin 1,000 Mcg Tablet PO 01/21/23 08:59 5,000 mcg DAILY ALEXA Administration Docusate Sodium 100 mg 01/20/22 19:11 Docusate 100 Mg Capsule PO 01/20/23 19:10 BID PRN Constipation Docusate Sodium 283 mg 01/20/22 19:11 Docusate Enema 283 Mg/5 Ml Enema WA 01/20/23 19:10 DAILY PRN Constipation Fluconazole 100 mg 01/21/22 09:00 01/21/22 09:04 Fluconazole 100 Mg Tablet PO 02/04/22 08:59 100 mg QAM ALEXA Administration Hydrochlorothiazide 25 mg 01/21/22 09:00 01/21/22 09:03 Hydrochlorothiazide 25 Mg Tablet PO 01/21/23 08:59 25 mg DAILY ALEXA Administration Lactulose 30 gm 01/20/22 19:11 Lactulose 20 Gm/30 Ml Udc PO 01/20/23 19:10 DAILY PRN Constipation Levothyroxine Sodium 112 mcg 01/21/22 06:30 01/21/22 05:58 Levothyroxine 112 Mcg Tablet PO 01/21/23 06:29 112 mcg [id number]@0630 ALEXA Administration Levothyroxine Sodium 125 mcg 01/23/22 06:30 Levothyroxine 125 Mcg Tablet PO 01/23/23 06:29 MoWeFr@0630 ALEXA Lorazepam 0.5 mg 01/20/22 19:01 Lorazepam 0.5 Mg Tablet PO 07/19/22 19:00 HS PRN Sleep Potassium Chloride 20 meq 01/21/22 09:00 01/21/22 09:04 Potassium Chloride Er 20 Meq Tab.Er.Prt PO 01/21/23 08:59 20 meq DAILY ALEXA Administration Prednisone 60 mg 01/21/22 09:00 01/21/22 09:03 Prednisone 20 Mg Tablet PO 02/04/22 08:59 60 mg DAILY ALEXA Administration Fluticasone/Salmeterol 1 puff 01/20/22 21:00 01/21/22 05:09 Fluticasone/Salmeterol 113-14 Mcg 60 Puff Inhaler INHALATION 01/20/23 20:59 1 puff Q12HR ALEXA Administration Sennosides 2 tab 01/21/22 12:00 Sennosides 8.6 Mg Tablet PO 01/21/23 11:59 DAILY@12 PRN If no BM in 2 days Sodium Chloride 0 ml 01/20/22 19:11 Sodium Chloride 0.9 % 10 Ml Syringe IV-PUSH 01/20/23 19:10 PRN PRN Flush Sodium Chloride 10 ml 01/21/22 06:00 01/21/22 05:59 Sodium Chloride 0.9 % 10 Ml Syringe IV-PUSH 01/21/23 05:59 10 ml Q8H ALEXA Administration Sucralfate 1 gm 01/20/22 22:00 01/21/22 05:58 Sucralfate Susp 1 Gm/10 Ml Udc PO 01/20/23 21:59 1 gm TID.AC.HS ALEXA Administration Vancomycin HCl 250 mg 01/21/22 09:00 01/21/22 09:04 Vancomycin Hcl 250 Mg Capsule PO 01/28/22 08:59 250 mg DAILY ALEXA Administration Exam Physical Exam Vital Signs: Temp Pulse Resp BP Pulse Ox 36.5 C 82 20 145/76 H 95 01/21/22 05:00 01/21/22 05:00 01/21/22 05:00 01/21/22 05:00 01/21/22 07:30 Const General: cooperative and comfortable Orientation: alert, awake and oriented x3 HEENT Head: normocephalic and atraumatic Eyes Eyelids: eyelid abnormality left upper eyelid ptosis Neck Neck: normal visual inspection Chest Chest palpation & inspection: normal inspection of the chest Resp Effort & Inspection: normal respiratory effort, able to speak in complete sentences and symmetric chest movement Auscultation: diminished lung sounds, no rhonchi and no wheezes Cardio Rate: regular rate Rhythm: regular rhythm Heart Sounds: S1 normal and S2 normal GI Inspection: normal to inspection Palpation: soft and nontender Auscultation: normal bowel sounds General: deferred Neuro General: patient alert, patient awake, patient oriented x3, moves all extremities and no focal motor deficits Cranial Nerves: EOM intact bilaterally, no nystagmus, able to smile, able to blink, facial strength normal, hearing normal, speech unremarkable, able to rotate head bilaterally, able to elevate shoulders bilaterally, tongue midline and other (Left eye ptosis) Cognition: normal cognition Speech: speech normal Extrem General: no clubbing, cyanosis or edema and no calf tenderness Results Lab Results Labs: Laboratory Results - last 72 hr 01/21/22 05:53: PHA Creatinine Clear 61.66, Sodium 138, Potassium 3.4 L, Chloride 100, Carbon Dioxide 30.1 H, BUN 22, Creatinine 0.75, Est GFR ( Amer) > 60, Est GFR (Non-Af Amer) > 60, Glucose 104 H, Calcium 8.1 L, Total Bilirubin 0.6, AST 43 H, ALT 78 H, Alkaline Phosphatase 58, Total Protein 5.5 L,Albumin 2.9 L, Globulin 2.6, Albumin/Globulin Ratio 1.1, Prealbumin 25.1 01/21/22 05:53: Corrected WBC 7.9, Uncorrected WBC Count 7.9, RBC 4.05, Hgb 12.9, Hct 38.5, MCV 95.2, MCH 31.9, MCHC 33.6, RDW 13.3, Plt Count 227, MPV 6.6,Neut % (Auto) 81.3, Lymph % (Auto) 7.6, Bowie % (Auto) 11.1, Eos % (Auto) 0.0, Baso % (Auto) 0.0, Neut # (Auto) 6.4, Lymph # (Auto) 0.6 L, Bowie # (Auto) 0.9 H,Eos # (Auto) 0.0, Baso # (Auto) 0.0, Nucleated RBC % (auto) 0.0 A&P - Hospitalist Assessment/Plan (1) Peripheral polyneuropathy: (2) Impaired mobility and activities of daily living: (3) Essential hypertension: (4) Mahendra esophagitis: (5) Dysphagia: (6) Generalized weakness: (7) Ptosis of eyelid, left: (8) Diplopia: (9) History of breast cancer: (10) Clostridium difficile infection: (11) Non-small cell lung cancer (NSCLC): (12) 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: Plan Generalized weakness NSCLC s/p chemo/radiation, immunotherapy (on hold) Peripheral polyneuropathy Left eye ptosis Impaired mobility and ADLs ?Further POC for rehabilitative therapy, PT/OT, bowel regimen, DVT prophylaxis, pain management per PM&R ?Initiated on high-dose steroids. To be continued until follow-up with oncology ?Neurology following. Continue monitoring NIF and VC. Consideration of LP if symptoms are persistent or worsen. Possible outpatient NCS/EMG ?Oncology following Recurrent C. difficile infection ?No diarrhea noted during medical admission. Continues on vancomycin taper Dysphagia Esophageal candidiasis ?Status post EGD with esophageal dilation ?Continue Diflucan, sucralfate Chronic conditions: 1. Hypertension?amlodipine, HCTZ 2. A. fib?amiodarone 3. COPD?inhalers, albuterol as needed 4. Hypothyroidism?levothyroxine Documented By: NADEEM Foy 01/21/22 1 152 Signed By: <Electronically signed by NADEEM Balderrama> 01/21/22 1851 <Electronically signed by Yrn Kruse MD> 01/22/[address] [place] [address] Ctr Work Phone: [phone] Consult note Author Angelica Spaulding [facility] January 21, 2022 5:46pm Note Date/Time January 21, 2022 5:46 pm [facility] [address] [place] [address] Neurology Consult Note Signed Patient: Melida Valerio MR#: [id number] : 1940 Acct:[id number] Age/Sex: 81 / F Adm Date: 2 Loc: Room: [address] [place] [address] Type : ADM IN Attending Dr: Dorian Thomason MD Copies to: DO Dorian Teague MD Steven Benedict, MD~ HPI Consult Date: 01/21/22 Flat Folder: Angelica Spaulding MD Reason for consult: Diplopia Consult Narrative HPI: The patient is an 81-year-old female with known history of small cell lung cancer HospitalWho presented to the with left upper eyelid ptosis and diplopia due to dysconjugate gaze in the setting of generalized fatigue and weakness. Shehad noticed dysphagia to thin liquids which is not present today. Onset several weeks ago, though the diplopia was less apparent to her, probably because the left upper eyelid hangs low enough to cover the pupillary aperture on the left. Considerations include a third nerve palsy (microvascular seems most likely, butrule out compressive/aneurysmal) or neuromuscular junction disorder (myasthenia gravis or lambert eaton because of breast cancer or because of the durvalumab).The patient is being followed by hematology/oncology and neurology while in the hospital. The patient currently states that her symptoms are the same or slightly improved. She has persistent neck weakness and some pain and persistent left eye ptosis but denies new or worsening symptoms. Review of Systems Review of Systems Review of systems: Patient denies rhinorrhea, sore throat, does report shortness of breath, headache as mentioned above, denies any abnormal bleeding, PMFSH Vaccinated for COVID-19?: Yes Medical History (Updated 01/21/22 @ 13:28 by Dorian Thomason MD) Adenomatous colon polyp Allergic rhinitis Autoimmune hypothyroidism Chronic venous insufficiency Dysuria-frequency syndrome Essential hypertension GERD (gastroesophageal reflux disease) History of left breast cancer lumpectomy, radiation treatment History of tobacco abuse Hyperlipidemia Iron deficiency anemia secondary to blood loss (chronic) snf (current) use of inhaled steroids Nicotine dependence, cigarettes, in remission Pernicious anemia Primary insomnia Surgical History History of appendectomy History of hernia repair History of hysterectomy History of left breast biopsy History of tonsillectomy Family History Other Breast cancer Pancreatic cancer Prostate cancer Social History Smoking Status: Former smoker Tobacco Type: cigarettes Substance Use Type: None Meds Medications and Allergies Allergies RADHA Inhibitors Allergy (Verified 01/16/22 14:42) Unknown Reaction erythromycin base Allergy (Verified 01/16/22 14:42) Unknown Reaction rivaroxaban [From Xarelto] Allergy (Verified 01/16/22 14:42) Unknown Reaction tiotropium [From Spiriva with HandiHaler] Allergy (Verified 01/16/22 14:42) Unknown Reaction Home Medications albuterol sulfate 90 mcg/actuation aerosol inhaler (ProAir HFA) 2 puff INHALATION Q4H PRN 06/07/21 [History Confirmed 01/20/22] amiodarone 200 mg tablet 200 mg PO DAILY 06/07/21 [History Confirmed 01/20/22] amlodipine 5 mg tablet 5 mg PO DAILY 06/07/21 [History Confirmed 01/20/22] fluticasone 250 mcg-salmeterol 50 mcg/dose blistr powdr for inhalation (Advair Diskus) 1 inh INHALATION Q12H 06/07/21 [History Confirmed 01/20/22] hydrochlorothiazide 25 mg tablet 25 mg PO DAILY 06/07/21 [History Confirmed 01/20/22] levothyroxine 112 mcg tablet 112 mcg PO DIRECTED 06/07/21 [History Confirmed 01/20/22] levothyroxine 125 mcg tablet 125 mcg PO QMWF 06/07/21 [History Confirmed 01/20/22] potassium chloride 20 mEq tablet,extended release 20 meq PO DAILY #30 tab 11/23/21 [Rx Confirmed 01/20/22] vancomycin 125 mg capsule 125 mg PO DIRECTED #98 cap 12/23/21 [Rx Confirmed 01/20/22] lorazepam 0.5 mg tablet 0.5 mg PO HS PRN 30 Days #60 tab 01/10/22 [Rx Confirmed 01/20/22] cyanocobalamin (vitamin B-12) 5,000 mcg capsule 5,000 mcg PO DAILY #30 cap 01/20/22 [Rx Confirmed 01/20/22] fluconazole 100 mg tablet 100 mg PO QAM 6 Days #6 tab 01/20/22 [Rx Confirmed 01/20/22] prednisone 10 mg tablet 60 mg PO DAILY 14 Days #84 tab 01/20/22 [Rx Confirmed 01/20/22] Exam Physical Exam Vital Signs: Temp Pulse Resp BP Pulse Ox 97.5 F L 92 H 18 142/81 H 97 01/21/22 15:27 01/21/22 15:27 01/21/22 15:27 01/21/22 15:27 01/21/22 15:27 Neuro Other: Neurological exam: General: The patient is awake alert and oriented. Language is intact. Neurovascular exam: No carotid bruits. Regular rate and rhythm Cranial nerves: Pupils equal round reactive light and accommodation, fundoscopicexam is normal, extraocular movements Are impaired on the left with left eye ptosis, visual valentin are full to confrontation, sensations intact in the face, hearing is intact to finger rub, palate elevates bilaterally, tongue protrudes midline, shoulder shrug is symmetric. Neck flexion/extension is 4+ out of 5 Motor: Strength testing is 5- out of 5 in all 4 extremities, deep tendon reflexes are 1+ and symmetric throughout, plantar reflexes flexor, tone is normal throughout. Sensory: light touch intact in all 4 extremities Cerebellar/gait: No ataxia noted on finger to nose or gait testing. Results Laboratory Findings CBC and BMP: 01/21/22 05:53 01/21/22 05:53 Therapy Recommendations Therapy Recommendations: OT Recommendations OT Recommended Discharge Home with Home Health Location PT Recommendations PT Recommended Discharge Home with Outpatient Location PT Recommended Services at Physical Therapy,Occupational Therapy Discharge ST Recommendations Level of Supervision Intermittent Supervision Medication Administration Give Pills in Applesauce Dysphagia Swallow Precautions/ Sitting Upright (90 deg),Small Bites/Sips, Strategies Alternate Liquids/Solids,Sit Upright 30 Minutes Assessment/Plan (1) Diplopia: Code(s): H53.2 - Diplopia Status: Acute Plan 81 year old woman with right lung SCC. She has left upper eyelid ptosis and diplopia due to dysconjugate gaze in the setting of generalized fatigue and weakness. She had noticed dysphagia to thin liquids which is not present today. Onset several weeks ago, though the diplopiawas less apparent to her, probably because the left upper eyelid hangs low enough to cover the pupillary aperture on the left. Considerations include a third nerve palsy (microvascular seems most likely, but rule out compressive/aneurysmal) or neuromuscular junction disorder (myasthenia gravis orlambert eaton because of breast cancer or because of the durvalumab). 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 Patient continues to have left eye ptosis which impairs left upper field of vision, this is similar to her presentation on admission.? Patient continues to report a bandlike sensation around her upper abdomen with some dyspnea associated.? Some concern for diaphragmatic weakness secondary to these symptoms.? Patient is going for an upper GI scope today with some concern for post radiation changes or hiatal hernia.? Patient also has some mild inspiratorywheezing bilaterally on exam today, saturations have been good in high 90s on 1-2 L via nasal cannula PLAN: Continue high-dose intravenous steroids, patient has some improvement in the muscle strength of upper extremities, continued weakness of lower extremities worse on the left. Will follow with Heme-onc Reviewed imaging including CT and CTA head were both nonacute Continue to monitor for dyspnea: NIF and VC Could still consider LP If symptoms persist or worsen however we will continue to follow clinically. Consider outpatient NCS/EMG Documented By: Angelica Spaulding MD 01/21/22 1738 Signed By: <Electronically signed by MD Angelica Spaulding> 01/21/22 [address] [facility] Work Phone: [phone] 470-382104-08-2022 Progress note Author eBrtha Christianson [facility] January 20, 2022 5:54pm Note Date/Time January 20, 2022 3:33 pm [facility] [address] [place] [address] Med Onc/Hem Progress Note Signed Patient: Melida Valerio MR#: [id number] : 1940 Acct:[id number] Age/Sex: 81 / F Adm Date: 2 Loc: Room: [address] [place] [address] Type : ADM IN Attending Dr: Ramona Lee MD Copies to: ~ Subjective Date of Service: 01/20/2022 Interval History: 01/20/2022: Melida is seen at bedside and is in good spirits. She feels well and does not report any new complaints overnight. Her left eye ptosis is essentiallyunchanged. She reports continued improvement in her strength and she will be transitioning to inpatient rehab as soon as today for continued therapy. 01/19/2022: Melida is seen at bedside. She is sitting upright in the chair, in goodspirits; reports she is feeling much better. She has noted some increasing shortness of breath and dry cough since admission. Is now on 3 liters nasal cannula; as her O2 sats were in the mid to low 80's. She has been afebrile; she still continues to have noticeable left eye ptosis; and generalized complaints of feeling like she has a stiff neck ; but otherwise no focal complaints. She seems to have improved strength with swallowing. Appetite is okay and she deniesany significant diarrhea/constipation or nausea. 01/16/2022: ADMISSION Melida is here for add on visit due to multiple issues prior to next cycle of maintenance Durvalumab. 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 The patient reports a rather complicated clinical course over the past several weeks. To briefly summarize, the patient reportedly had a fall at home on 11/14/2021. The patient's family reports that approximately 3 weeks after she fell; and ~ 2-3 days after last immunotherapy; she began having a multitude of complaints including headaches, dizziness, balance issues, trouble swallowing and progressive weakness in extremities x 4. The patient is markedly fatigue, reports she is not even able to bathe or dress herself; can no longer ambulate and essentially cannot do any regular ADL's that she was doing a few months ago.Of note, the patient is usually with robust performance status and this is clearly a deviation of her baseline. She reports worsening dyspnea/shortness of breath; hard to feel like she is getting adequate air. She also reports a severely dry mouth and has obvious unilateral ptosis of the left eye. She was evaluated by Dr. Argueta and Ana Mari. We will direct admit under hospitalist for high dose steroids for severe weakness. HPI: 81-year-old female referred from Dr. Mccarty whom I previously followed at [facility] for breast cancer. Past medical history includes hypertension, chronic venous insufficiency, gastroesophageal reflux disease, type 2 diabetes, quit smoking in 1999, pernicious anemia, hypothyroidism, iron deficiency anemia, paroxysmal atrial fibrillation, hyperlipidemia, chronic bronchitis.. She had a hysterectomy and nephrectomy in her 20s for endometriosis. Outpatient medications include ProAir, levothyroxine, hydrochlorothiazide, amlodipine, montelukast, amiodarone. DEXA scan from 2018 shows osteopenia in the hip and normal in the spine echocardiogram from May 2019 shows ejection fraction of greater than 55%, no significant wall motion abnormalities and mild diastolic dysfunction. Slightly elevated right-sided pressures. No significant valvular abnormalities. She does have a sister with breast cancer in her 40s, mother sister had breast cancer in her 70s, mother's other sister had breast cancer in her 70s, mother had breast cancer in her 50s. Melida has 2 adopted children. She was diagnosed with ER/WA positive HER-2 negative breast cancer in 2009 at a hospital in [place]. She got adjuvant radiotherapy following lumpectomy. She did not get chemotherapy and refused adjuvant tamoxifen and has been monitored since. CAT scan of the chest from January 2017 showed no evidence of disease. She followed up with mammograms regularly and they were all normal. She had some short of breath since December 2020. In late April she noted a slight right upper quadrant pain. Worse with deep breathing. She went to ER on 05/16/21. She had XR with R sided consolidation. and A CT of the abdomen and pelvis from May 16, 2021 with IV contrast shows normallung bases, normal liver, pancreas, gallbladder, spleen. Left adrenal 2 cm nodule, normal kidneys, bladder, bowel, peritoneum. No enlarged lymph nodes. No abnormalities in the bones. She was admitted to the hospital and had CT chest next day which noted a large mass. Some dry irritating cough. She was discharged and f/u with dr. mccarty. She had a bronchoscopy on 05/30/[address] Mccarty. Found an endobronchial mass in the lateral segment of the right middle lobe. 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 Negative for TTF-1 and positive for P 40. She had pulmonary function studies in December 2020 with an FEV1 of 1.95 L in the right middle lobe only comprises 11% of the total lung capacity. She has not yet had PET/CT. had EBUS Dr. JOHNSON. Nodes all negative adrenal biopsy negative. PET/CT with disease localized, few nodes curious. 10/17/2021: Patient reports for post treatment follow up visit. 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 Towards the end of treatment she was diagnosed with C diff colitis treated first with oral Vancomycin and then Flagyl. Clinically, she is much improved. No further episodes of diarrhea. She appears non toxic. She is approximately 1 month out from treatment; she reports no significant or new issues other than dry, sometimes productive cough. Worse during the day; denies shortness of breath, sputum production, dysphagia, fever/chills, or hemoptysis. Plan to initiate maintenance Durvalumab as soon as insurance approves. She will need post treatment scan, as well. Will arrange for PET/CT scan in ~ 5 weeks with follow up thereafter. 11/09/21 she is feeling much better today, has not had diarrhea in 2 days. almost feels like she may be getting constipated she admits to not staying hydrated today and yesterday, so we encouraged her to push more fluids, which may help with her bowels as well she denies any other complaints, tolerating the fidaxomycin well energy is much improved and she is cooking again will get durvalumab today 11/29/21 she has some chest soreness, some cough. overall doing well. PET/CT with great outcome. 11/28/21 NO RESIDUAL RIGHT MIDDLE LOBE MASS OR PATHOLOGIC ADENOPATHY. SUBCUTANEOUS NODULE IN THE RIGHT LABIAL REGION, POSSIBLYA SEBACEOUS CYST. CLINICAL CORRELATION IS RECOMMENDED. on durvalumab x 1 month. will continue for 12 month. pooping is good. She does not have any more diarrhea. Exam - Physical Exam Vital signs: Temp Pulse Resp BP Pulse Ox 97.8 F 80 16 112/58 L 93 L 01/20/22 08:00 01/20/22 12:35 01/20/22 12:35 01/20/22 12:35 01/20/22 12:35 General : patient is alert and oriented; left eye ptosis. HEENT: oral mucosa is dry/pink; no lesions or exudate; no facial droop; no JVD or thyromegaly. Lymph: no cervical, supraclavicular, axillary adenopathy. Heart: regular rate and rhythm no murmurs rubs or gallops. Abdomen: soft nontender nondistended, no hepatosplenomegaly. Lungs: clear to auscultation bilaterally. No wheezes, rales, rhonchi. Extremities: no clubbing cyanosis. trace BLE left > right; unchanged tendernessto palpation of lower extremities bilaterally. Neurological: 5/5 strength in upper extremities, 3+/5 LLE and 4/5 RLE; gait notobserved; left eye ptosis and L lateral gaze deficit; no focal deficits Objective - Lab CBC & Chem 7: 01/16/22 18:36 01/19/22 04:45 Lab Results: 01/20/22 05:50: Free T4 1.39 H, TSH 3rd Generation 1.96, Total Cortisol 3.2 Assessment and Plan (1) Generalized weakness 01/16/2022: The patient reports a rather complicated clinical course over the pastseveral weeks. To briefly summarize, the patient reportedly had a fall at home on 11/14/2021. The patient's family reports that approximately 3 weeks after shefell; and ~ 2-3 days after last immunotherapy on 12/07/2021; she began having a multitude of complaints including headaches, dizziness, balance issues, trouble swallowing and progressive weakness in extremities x 4. The patient is markedlyfatigue, reports she is not even able to bathe or dress herself; can no longer ambulate and essentially cannot do any regular ADL's that she was doing a few months ago. Compared to baseline, this is an obvious deviation from her baseline, rather robust Performance Status. She reports worsening dyspnea/shortness of breath; hard to feel like she is getting adequate air. She also reports a severely dry mouth and has obvious unilateral ptosis of the left eye and left lateral gaze defecit. She saw her PCP, Dr. Espino approximately 1 week ago and he ordered imaging including brain MRI. Brain MRI was essentially negative; with no evidence of intracranial metastasis or other acute changes. 01/19/2022: Day #4 of high dose steroids (received Solu-medrol 1 Gram IV on 01/16/2022; followed by Prednisone 90 mg daily thereafter. She reports overall improvement in strength and swallowing. She has noticed more shortness of breathand decreased activity tolerance. She is now on oxygen 3 Liters, for sats in themid to low 80's with activity. -- appreciate neurological input CT and CTA head were both nonacute MRI nonacute on 01/11/2022 Recommend: possible anti-P/Q-type voltage-gated calcium channel antibody testing Consider outpatient NCS/EMG -- continue steroids at current dose -- will check ACTH, cortisol, TSH and free T4 - standard immunotherapy labs (these were last drawn on 12/06/2021) (2) Non-small cell lung cancer (NSCLC) 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 Stage IIB Completed concurrent chemoradiation for her cancer carboplatin and paclitaxol oct through sep 2021. followed by maintenance durvalumab. Started maintenance durvalumab (received 2 doses - 2 weeks apart) 10 mg/kg dosing- given 10/26/2021 and 11/09/2021. PET/CT 11/2021 [facility]. -- therapy changed to monthly dosing (Q 4 weeks - 1500 mg) - received 1 dose on:12/07/2021 Patient has had increasing O2 requirements during this hospitalization; now on 3liters 02 for sats in the mid 80's, along with dry cough; Neuro is also following NIF and VC. Chest CT done 01/19/2022 reveals resolution of right middle lobe mass with residual linear scarring/atelectasis, left linear atelectasis/scarring, and an unchanged left adrenal nodule. No evidence of pneumonitis identified. She maintains on 1-2L oxygen as of 01/20/2022 as her sats continue to drop with activity. (3) Clostridium difficile infection Diagnosed during end of treatment course; recurrent episodes x 3. Has completed two full rounds of treatment; has approximately 1.5 weeks left with oral Vancomycin pills. She does not report recurrent episodes of diarrhea or abdominal pain. She has been referred to Dr. Tran- we will follow-up to be sure she gets a consult scheduled after discharge (4) History of breast cancer - Time with Patient Coordination of Care & Counseling Time: Greater than 50% of time spent with patient was for coordination of care (as documented) and [id number] counseling of patient and/or family. Attestation Statement - Physician Attestation Zachary Bautista DO have seen and evaluated this patient with Ophelia Beach NP. I personally have contributed to the history, physical, assessment and plan as laid out in this document. I cannot fully explain her generalized weakness but it seems to be quite improved on high-dose steroids. I will discharge her on 60 mg of prednisone x2 weeks and see me in the office todiscuss taper. I will continue to hold her immunotherapy in the interim. Documented By: Gardenia Carlisle APRN 01/20/22 15 28 Signed By: <Electronically signed by BACILIO Carlisle> 01/20/22 1626 <Electronically signed by Bertha Christianson II, DO> 01/20/22 [address] [facility] Work Phone: [phone]) 204-778004-08-2022 Progress note Author Ramona Lee [facility] January 20, 2022 3:09pm Note Date/Time January 20, 2022 2:52 pm [facility] [address] [place] [address] Hospitalist Progress Note Signed with Luiza Patient: Melida Valerio MR#: [id number] : 1940 Acct:[id number] Age/Sex: 81 / F Adm Date: 2 Loc: 3T Room: [address] [place] [address] Type : ADM IN Attending Dr: Ramona Lee MD Copies to: ~ ADDENDUM1 Patient has been requiring 2 L of oxygen saturating 93%, does have few crackles on exam. Chest CT scan reviewed showed resolution of right middle lobe mass with residual linear scarring/atelectasis, left linear atelectasis and scarring as well. We will give 1 dose of IV Lasix and wean oxygen as tolerated. She will require walk study on discharge Addendum Documented By: Ramona Lee MD 01/20/22 1509 Addendum Signed By: <Electronically signed by Ramona Lee MD> 01/20/22 1509 Date of Service: 01/20/2022 Subjective Subjective Narrative: Patient reports improvement of her left eye symptoms. She is able to open her eyes better. She also reports improved diplopia. She did undergo EGD this morning which showed some distal erythema and underwent dilatation. She also was noted to have candidal esophagitis. She was able to tolerate p.o. intake after the procedure. Denies any nausea vomiting or abdominal pain Exam Physical Exam Vital Signs: Temp Pulse Resp BP Pulse Ox 97.8 F 80 16 112/58 L 93 L 01/20/22 08:00 01/20/22 12:35 01/20/22 12:35 01/20/22 12:35 01/20/22 12:35 Narrative: General: Awake, alert, oriented x3 not in acute distress Cardiovascular: Regular rate and rhythm , S1-S2 heard, no murmurs or gallops Lungs: No wheezing or rhonchi heard Gastrointestinal: Soft, nontender, bowel sounds heard Extremities: No edema Neurological: 5/5 strength in extremities, left eye ptosis, no other cranial pulses noted, symmetrical facial expressions otherwise, no focal motor deficit or sensory loss, pupils are reactive to light and symmetrical bilaterally Psych: Normal mood and affect Objective Lab Results CBC & Chem 7: 01/16/22 18:36 01/19/22 04:45 Meds Allergies and Active Meds Allergies RADHA Inhibitors Allergy (Verified 01/16/22 14:42) Unknown Reaction erythromycin base Allergy (Verified 01/16/22 14:42) Unknown Reaction rivaroxaban [From Xarelto] Allergy (Verified 01/16/22 14:42) Unknown Reaction tiotropium [From Spiriva with HandiHaler] Allergy (Verified 01/16/22 14:42) Unknown Reaction Active Meds: Active Medications Generic Name Dose Route Start Last Admin Trade Name Freq PRN Reason Stop Dose Admin Acetaminophen 650 mg 01/16/22 17:46 01/19/22 23:01 Acetaminophen 325 Mg Tablet PO 01/16/23 17:45 650 mg Q6HR PRN Administration Pain Scale 1 - 3 or fever Albuterol 2 puff 01/16/22 19:25 01/20/22 08:19 Albuterol Hfa 60 Puff/8 Gram Inhaler INHALATION 01/16/23 19:24 2 puff Q4H PRN Administration Dyspnea Amiodarone HCl 200 mg 01/17/22 09:00 01/20/22 10:45 Amiodarone 200 Mg Tablet PO 01/17/23 08:59 Not Given DAILY [facility] Amlodipine Besylate 5 mg 01/17/22 09:00 01/20/22 10:45 Amlodipine 5 Mg Tablet PO 01/17/23 08:59 Not Given DAILY [facility] Cyanocobalamin 1,000 mcg 01/24/22 09:00 Cyanocobalamin 1,000 Mcg/Ml Vial IM 02/14/22 09:01 Tu@0900 [facility] Fluconazole 100 mg 01/20/22 12:20 Fluconazole 100 Mg Tablet PO QAM [facility] Heparin Sodium (Porcine) 500 unit 01/18/22 06:00 01/20/22 10:45 Heparin-Lock 500 Unit/5 Ml Syringe IV-PUSH 01/18/23 05:59 Not Given DAILY [facility] Heparin Sodium (Porcine) 500 unit 01/17/22 15:48 01/19/22 05:04 Heparin-Lock 500 Unit/5 Ml Syringe IV-PUSH 01/17/23 15:47 500 unit PRN PRN Administration Flush Hydrochlorothiazide 25 mg 01/17/22 09:00 01/20/22 10:45 Hydrochlorothiazide 25 Mg Tablet PO 01/17/23 08:59 Not Given DAILY [facility] Levothyroxine Sodium 125 mcg 01/18/22 06:30 01/20/22 06:41 Levothyroxine 125 Mcg Tablet PO 01/18/23 06:29 Not Given [id number] [facility] Levothyroxine Sodium 112 mcg 01/19/22 06:30 01/19/22 05:38 Levothyroxine 112 Mcg Tablet PO 01/17/23 06:29 112 mcg [id number] ALEXA Administration Lorazepam 0.5 mg 01/16/22 19:25 01/19/22 23:01 Lorazepam 0.5 Mg Tablet PO 07/15/22 19:24 0.5 mg HS PRN Administration Sleep Ondansetron HCl 4 mg 01/16/22 17:46 Ondansetron 4 Mg/2 Ml Vial IV-PUSH 01/16/23 17:45 Q8H PRN Nausea And Vomiting Potassium Chloride 20 meq 01/17/22 09:00 01/20/22 10:46 Potassium Chloride Er 20 Meq Tab.Er.Prt PO 01/17/23 08:59 Not Given DAILY [facility] Prednisone 90 mg 01/18/22 16:00 01/20/22 10:46 Prednisone 10 Mg Tablet PO 01/18/23 15:59 Not Given DAILY [facility] Fluticasone/Salmeterol 1 puff 01/16/22 21:00 01/20/22 08:19 Fluticasone/Salmeterol 113-14 Mcg 60 Puff Inhaler INHALATION 01/16/23 20:59 1 puff BID ALEXA Administration Sucralfate 1 gm 01/19/22 16:30 01/20/22 10:46 Sucralfate Susp 1 Gm/10 Ml Udc PO 01/19/23 16:29 Not Given TID.AC.HS [facility] Vancomycin HCl 250 mg 01/21/22 09:00 Vancomycin Hcl 250 Mg Capsule PO 01/27/22 09:01 DAILY ALEXA A&P - Hospitalist Assessment/Plan (1) Generalized weakness: (2) Ptosis of eyelid, left: (3) Diplopia: (4) History of breast cancer: (5) Non-small cell lung cancer (NSCLC): (6) 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 Work-up has been unremarkable. Random cortisol level this morning noted to be around 3 but most likely suppressed from high-dose steroids and need to be checked in outpatient setting Dysphagia, status post barium swallow and EGD, noted to have esophageal dysmotility, mild esophageal candidiasis, status post dilatation, started on Diflucan Other medical problems Atrial fibrillation on amiodarone History of C. difficile colitis, on oral prednisone taper Hypothyroidism on levothyroxine replacement Documented By: Ramona Lee MD 01/20/22 1448 Signed By: <Electronically signed by Ramona Lee MD> 01/20/22 [address] [facility] Work Phone: 1([phone]) 232-124004-08-2022 Progress note Author Wilfrido Argueta [facility] January 20, 2022 5:17pm Note Date/Time January 20, 2022 10:1 8am [facility] [address] [place] [address] Neurology Progress Note Signed Patient: Melida Valerio MR#: [id number] : 1940 Acct:[id number] Age/Sex: 81 / F Adm Date: 2 Loc: Room: [address] [place] [address] Type : ADM IN Attending Dr: Ramona Lee MD Copies to: ~ Date of Service: 01/20/2022 Subjective Subjective Narrative: Patient was seen and examined sitting upright in bed this morning. She states that she continues to have some visual deficits with her eyelid drooping on the left. She states that she thinks this is better in the morning and gets worse in the afternoon/evening. Patient states that she continues to have some dyspnea especially with exertion. She has been working with PT/OT and able to walk [id number] across the room multiple times. She states that as long as she has her supplemental O2 via NC her dyspnea is fairly well managed. Patient also continues to complain of bandlike tightness around her upper abdomen. Patient is going for upper GI scope this morning. Patient denies any other acute complaints or concerns at this time peer Review of Systems Review of Systems Review of systems: Cardiac: Patient denies any palpitation or chest pain Respiratory: Patient does report some shortness of breath, this is improved as long as she is on her supplemental O2 via NC. GI: Patient continues to report a belt-like tightness sensation in upper abdomenwith some shortness of breath. Patient denies any abdominal pain, n/v/d/c Neuro: Patient states that she has chronic numbness and tingling in bilateral feet worse on the left. Patient also reports some weakness of lower extremitiesworse on the left and some muscle weakness of right upper extremity. Exam Physical Exam Vital Signs: Temp Pulse Resp BP Pulse Ox 97.8 F 82 18 165/79 H 96 01/20/22 08:00 01/20/22 08:00 01/20/22 08:00 01/20/22 08:00 01/20/22 08:21 Narrative: General -awake, alert, oriented ?3, not in acute distress, lying in upright position, does not appear to be respiratory distress Cardiovascular - regular rate and rhythm, S1 & S2 Pulmonary -slight inspiratory wheezing bilaterally and posterior valentin, no rales Gastrointestinal - abdomen is soft, nondistended, slight tenderness to palpation in epigastric region, normoactive bowel sounds, there is no guarding, rebound or rigidity GENERAL EXAM: * Constitutional - Patient appears well nourished and well groomed * Patient is alert and oriented. * Trace edema of bilateral lower extremities NEURO EXAM: * Attention span/concentration normal. * Speech is clear and fluent * Cranial nerve II.? Visual deficit and left upper field (likely secondary to ptosis). Otherwise, visual valentin intact. TANYA * Cranial nerve III, IV and .? Left ptosis. Eye movements are normal however eyes are disconjugate. No nystagmus is appreciated * Cranial nerve V and VII.? No facial asymmetry is appreciated.? Normal sensation on right and decreased on the left to pinprick, temperature, touch and vibration. * Cranial nerve VIII. Hearing is intact * Cranial nerve IX and X. Speech is clear & fluent.? Palate elevates symmetrically * Cranial nerve XI. Head turn side to side with full range of motion.? Shoulder shrug is equal bilaterally * Cranial nerve XII. Tongue is midline full range of motion MOTOR EXAM: * Strength is 5/5 in bilateral upper extremities. 4/5 muscle strength in right lower extremity, 3/5 muscle strength and left lower extremity * Muscle tone and bulk are normal * Gait not assessed SENSORY EXAM: * Temperature, pinprick, touch, vibration all decreased on left side, normal on right side. CEREBELLAR EXAM: * Finger-nose and alternating movements intact in b/l upper extremity. * Rand-vr-rdck intact in bilateral lower extremities * No ataxia noted today REFLEX EXAM: * ?+1/4 in left patella, +2 and right patella. +2 reflexes bilateral upper e xtremities. No pathologic reflexes.? Objective Vital Signs Vital Signs: Vital Signs - 24 hr 01/19/22 11:36 01/19/22 16:00 01/19/22 19:55 Temperature 97.4 F L 97.5 F L 97.5 F L Pulse Rate 74 98 H 84 Respiratory Rate 18 18 18 Blood Pressure 138/70 162/75 H 162/78 H 02 Sat by Pulse Oximetry 98 94 L 98 01/19/22 23:05 01/20/22 04:55 01/20/22 08:00 Temperature 97.6 F 97.5 F L 97.8 F Pulse Rate 88 86 82 Respiratory Rate 18 18 18 Blood Pressure 157/75 H 131/73 165/79 H 02 Sat by Pulse Oximetry 98 97 94 L 01/20/22 08:21 Temperature Pulse Rate Respiratory Rate Blood Pressure 02 Sat by Pulse Oximetry 96 Labs CBC & Chem 7: 01/16/22 18:36 01/19/22 04:45 Therapy Recommendations Therapy Recommendations: OT Recommendations OT Recommended Discharge Inpatient Rehab Unit Location OT Recommended Services at Physical Therapy,Occupational Therapy Discharge PT Recommendations PT Recommended Discharge Inpatient Rehab Unit Location PT Recommended Services at Physical Therapy,Occupational Therapy,Speech Discharge Therapy,07/[address] Recommendations Level of Supervision Independent Self Feeding Liquid Consistency Thin Liquids Recommendation Solid Consistency Regular Solids Recommendations Meat Consistency Whole Meats Recommendations Medication Administration Give Pills in Applesauce Dysphagia Swallow Precautions/ Sitting Upright (90 deg),Small Bites/Sips, Strategies Alternate Liquids/Solids,Sit Upright 30 Minutes Referral Recommendations Modified Barium Swallow Mod Barium Swallow Recommended GI Consult Referrals Treatment Plan No Tx Indicated Assessment/Plan (1) Ptosis of eyelid, left: Code(s): H02.402 - Unspecified ptosis of left eyelid Status: Acute (2) Diplopia: Code(s): H53.2 - Diplopia Status: Acute (3) Generalized weakness: Code(s): R53.1 - Weakness Status: Acute (4) Neuropathy: Code(s): G62.9 - Polyneuropathy, unspecified Status: Acute (5) History of breast cancer: Code(s): Z85.3 - Personal history of malignant neoplasm of breast Status: Acute Plan 81 year old woman with right lung SCC. She has left upper eyelid ptosis and diplopia due to dysconjugate gaze in the setting of generalized fatigue and weakness. She had noticed dysphagia to thin liquids which is not present today. Onset several weeks ago, though the diplopiawas less apparent to her, probably because the left upper eyelid hangs low enough to cover the pupillary aperture on the left. Considerations include a third nerve palsy (microvascular seems most likely, but rule out compressive/aneurysmal) or neuromuscular junction disorder (myasthenia gravis orlambert eaton because of breast cancer or because of the durvalumab). 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 Patient continues to have left eye ptosis which impairs left upper field of vision, this is similar to her presentation on admission. Patient continues to report a bandlike sensation around her upper abdomen with some dyspnea associated. Some concern for diaphragmatic weakness secondary to these symptoms. Patient is going for an upper GI scope today with some concern for post radiation changes or hiatal hernia. Patient also has some mild inspiratorywheezing bilaterally on exam today, saturations have been good in high 90s on 1-2 L via nasal cannula PLAN: Continue high-dose intravenous steroids, patient has some improvement in the muscle strength of upper extremities, continued weakness of lower extremities worse on the left. Ammonia was normal at 22. RADHA was normal at 25. Heme-onc ordered following labs: TSH normal at 1.96, free T4 elevated at 1.39, total cortisol normal at 3.2, ACTH pending CT and CTA head were both nonacute In regard to patient's complaints of bandlike upper abdominal sensation and dyspnea: ordered NIF and VC which demonstrated NIF of 45 (01/17/22) and 50 (01/18/22). VC was 1.4 L on both 01/17 and 01/18. Neither of these demonstrating significant concern. Chest CT did not demonstrate any major concerns for acute pulmonary process. Await results from GI endoscopy. Could still consider LP. However, there is no specific etiology we would be trying to dx. Consider anti-P/Q-type voltage-gated calcium channel antibody testing Consider outpatient NCS/EMG Attestation Statement I agree with the above. Patient seen and examined. No dramatic improvement in left upper eyelid ptosis. Disconjugate gaze seems tostill be present but has improved. Still has other generalized weakness that is likely somewhat better than when she was first admitted. Neck flexion weakness.Still seems fairly consistent with a neuromuscular junction disorder but the fatigable nature of this is questionable. Otherwise, most causes of multiple cranial neuropathies have been ruled out, and though CSF could still be informative, I think the likelihood of it revealing an etiology is low. No other immediate recommendations. Let us know if CSF is desired. She could still consider having anti-P/Q-type voltage-gated calcium channel antibody testing. Outpatient nerve conduction studies and EMG with repetitive stimulation are recommended. Documented By: Jarad Walters DO, RES 01/20/22 1 008 Signed By: <Electronically signed by DO JOANNE Walters> 01/20/22 1041 <Electronically signed by Wilfrido Argueta DO> 01/20/22 [address] [facility] Work Phone: 1(549) [phone] [facility] Consult note Author Yfn Whiting [facility] January 19, 2022 3:11pm Note Date/Time January 19, 2022 3:00 pm [facility] [address] [place] [address] Gastroenterology Consult Note Signed Patient: Melida Valerio MR#: [id number] : 1940 Acct:[id number] Age/Sex: 81 / F Adm Date: 2 Loc: Room: [address] [place] [address] Type : ADM INOo Attending Dr: Ramona Lee MD Copies to: DO Yfn Teague Jr, DO Ramona Lee MD~ HPI Data of Consult Date of Consultation: 01/19/22 Requesting Physician: Ramona Lee MD Consult Narrative History of present illness: Ms. Valerio is a 81 year old female with lung cancer received radiation in Sep 2021 and currently on immunotherapy, history of fall injury in November presented with shortness of breath, drooping of the left eyelid. Her shortness of breath is improving, still some wheezes, remains on oxygen. 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 Shehas been complaining of epigastric pain and dysphagia. Evaluated by speech pathology and underwent modified barium swallow, recommended GI evaluation. Patient had an EGD and colonoscopy March [address] Andrade. EGD was normal at that time. cc:: CC: Ramona Lee MD Review of Systems Review of Systems Review of systems: 10 point review of systems is documented in EMR, no changes at this time PMFSH Vaccinated for COVID-19?: Yes Medical History Adenomatous colon polyp Allergic rhinitis Autoimmune hypothyroidism Chronic venous insufficiency Dysuria-frequency syndrome Essential hypertension GERD (gastroesophageal reflux disease) History of left breast cancer lumpectomy, radiation treatment History of tobacco abuse Hyperlipidemia Iron deficiency anemia secondary to blood loss (chronic) snf (current) use of inhaled steroids Nicotine dependence, cigarettes, in remission Pernicious anemia Primary insomnia Surgical History History of appendectomy History of hernia repair History of hysterectomy History of left breast biopsy History of tonsillectomy Family History Other Breast cancer Pancreatic cancer Prostate cancer Social History Smoking Status: Former smoker Tobacco Type: cigarettes Substance Use Type: None Meds Medications and Allergies Allergies RADHA Inhibitors Allergy (Verified 01/16/22 14:42) Unknown Reaction erythromycin base Allergy (Verified 01/16/22 14:42) Unknown Reaction rivaroxaban [From Xarelto] Allergy (Verified 01/16/22 14:42) Unknown Reaction tiotropium [From Spiriva with HandiHaler] Allergy (Verified 01/16/22 14:42) Unknown Reaction Home Medications albuterol sulfate 90 mcg/actuation aerosol inhaler (ProAir HFA) 2 puff INHALATION Q4H PRN 06/07/21 [History Confirmed 01/16/22] amiodarone 200 mg tablet 200 mg PO DAILY 06/07/21 [History Confirmed 01/16/22] amlodipine 5 mg tablet 5 mg PO DAILY 06/07/21 [History Confirmed 01/16/22] fluticasone 250 mcg-salmeterol 50 mcg/dose blistr powdr for inhalation (Advair Diskus) 1 inh INHALATION Q12H 06/07/21 [History Confirmed 01/16/22] hydrochlorothiazide 25 mg tablet 25 mg PO DAILY 06/07/21 [History Confirmed 01/16/22] levothyroxine 112 mcg tablet 112 mcg PO DIRECTED 06/07/21 [History Confirmed 01/16/22] levothyroxine 125 mcg tablet 125 mcg PO QMWF 06/07/21 [History Confirmed 01/16/22] potassium chloride 20 mEq tablet,extended release 20 meq PO DAILY #30 tab 11/23/21 [Rx Confirmed 01/16/22] vancomycin 125 mg capsule 125 mg PO DIRECTED #98 cap 12/23/21 [Rx Confirmed 01/16/22] lorazepam 0.5 mg tablet 0.5 mg PO HS PRN 30 Days #60 tab 01/10/22 [Rx Confirmed 01/16/22] Exam Physical Exam Vital Signs: Temp Pulse Resp BP Pulse Ox 97.4 F L 74 18 138/70 98 01/19/22 11:36 01/19/22 11:36 01/19/22 11:36 01/19/22 11:36 01/19/22 11:36 Const General: no acute distress Orientation: alert and oriented x3 HEENT Mouth: moist mucous membranes Eyes Other: left eye ptosis Resp Effort & Inspection: normal respiratory effort Auscultation: wheezes Cardio Rate: regular rate Rhythm: regular rhythm GI Inspection: non-distended Palpation: soft and nontender Percussion: normal to percussion Auscultation: normal bowel sounds Skin General: no jaundice Neuro Motor: no tremors Extrem General: no edema Results Labs Labs: Laboratory Results - last 24 hr 01/18/22 01/19/22 17:43 04:45 PHA Creatinine Clear 62.26 Sodium 139 Potassium 4.0 Chloride 103 Carbon Dioxide 26.9 BUN 22 Creatinine 0.72 Est GFR ( Amer) > 60 Est GFR (Non-Af Amer) > 60 Glucose 148 H Calcium 8.6 Total Bilirubin 0.5 AST 73 H ALT 100 H Alkaline Phosphatase 61 Total Protein 6.0 L Albumin 3.1 L Globulin 2.9 Albumin/Globulin Ratio 1.1 Angiotensin Convert Enz 25 A&P - Gastroenterology Assessment/Plan (1) Dysphagia: Code(s): R13.10 - Dysphagia, unspecified Status: Acute (2) Epigastric pain: Code(s): R10.13 - Epigastric pain Status: Acute (3) 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: Code(s): C34.2 - Malignant neoplasm of middle lobe, bronchus or lung Status: Acute (4) Ptosis of eyelid, left: Code(s): H02.402 - Unspecified ptosis of left eyelid Status: Acute Plan 81 y/o female with metastatic lung cancer on immunotherapy having 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 EGD done in March [address] Andrade but this was before her radiation and immunotherapy. Patient would like EGD evaluation. Herrespiratory status has improved but remains on oxygen. At this time will start Carafate, proceed with EGD. Documented By: Yfn Whiting Jr, 01/19/22 145 8 Signed By: <Electronically signed by Yfn Whiting Jr, DO> 01/19/22 [facility] Work Phone: [phone]) 513-174604-07-2022 Progress note Author Vernell Singletary [facility] January 19, 2022 3:06pm Note Date/Time January 19, 2022 2:46 pm [facility] [address] [place] [address] Med Onc/Hem Progress Note Signed Patient: Melida Valerio MR#: [id number] : 1940 Acct:[id number] Age/Sex: 81 / F Adm Date: 2 Loc: Room: [address] [place] [address] Type : ADM INOo Attending Dr: Ramona Lee MD Copies to: ~ Subjective Date of Service: 01/19/2022 Interval History: 01/19/2022: Melida is seen at bedside. She is sitting upright in the chair, in goodspirits; reports she is feeling much better. She has noted some increasing shortness of breath and dry cough since admission. Is now on 3 liters nasal cannula; as her O2 sats were in the mid to low 80's. She has been afebrile; she still continues to have noticeable left eye ptosis; and generalized complaints of feeling like she has a stiff neck ; but otherwise no focal complaints. She seems to have improved strength with swallowing. Appetite is okay and she deniesany significant diarrhea/constipation or nausea. 01/16/2022: ADMISSION Melida is here for add on visit due to multiple issues prior to next cycle of maintenance Durvalumab. 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 The patient reports a rather complicated clinical course over the past several weeks. To briefly summarize, the patient reportedly had a fall at home on 11/14/2021. The patient's family reports that approximately 3 weeks after she fell; and ~ 2-3 days after last immunotherapy; she began having a multitude of complaints including headaches, dizziness, balance issues, trouble swallowing and progressive weakness in extremities x 4. The patient is markedly fatigue, reports she is not even able to bathe or dress herself; can no longer ambulate and essentially cannot do any regular ADL's that she was doing a few months ago.Of note, the patient is usually with robust performance status and this is clearly a deviation of her baseline. She reports worsening dyspnea/shortness of breath; hard to feel like she is getting adequate air. She also reports a severely dry mouth and has obvious unilateral ptosis of the left eye. She was evaluated by Dr. Argueta and Ana Mari. We will direct admit under hospitalist for high dose steroids for severe weakness. HPI: 81-year-old female referred from Dr. Mccarty whom I previously followed at [facility] for breast cancer. Past medical history includes hypertension, chronic venous insufficiency, gastroesophageal reflux disease, type 2 diabetes, quit smoking in 1999, pernicious anemia, hypothyroidism, iron deficiency anemia, paroxysmal atrial fibrillation, hyperlipidemia, chronic bronchitis.. She had a hysterectomy and nephrectomy in her 20s for endometriosis. Outpatient medications include ProAir, levothyroxine, hydrochlorothiazide, amlodipine, montelukast, amiodarone. DEXA scan from 2018 shows osteopenia in the hip and normal in the spine echocardiogram from May 2019 shows ejection fraction of greater than 55%, no significant wall motion abnormalities and mild diastolic dysfunction. Slightly elevated right-sided pressures. No significant valvular abnormalities. She does have a sister with breast cancer in her 40s, mother sister had breast cancer in her 70s, mother's other sister had breast cancer in her 70s, mother had breast cancer in her 50s. Melida has 2 adopted children. She was diagnosed with ER/WA positive HER-2 negative breast cancer in 2009 at a hospital in [place]. She got adjuvant radiotherapy following lumpectomy. She did not get chemotherapy and refused adjuvant tamoxifen and has been monitored since. CAT scan of the chest from January 2017 showed no evidence of disease. She followed up with mammograms regularly and they were all normal. She had some short of breath since December 2020. In late April she noted a slight right upper quadrant pain. Worse with deep breathing. She went to ER on 05/16/21. She had XR with R sided consolidation. and A CT of the abdomen and pelvis from May 16, 2021 with IV contrast shows normallung bases, normal liver, pancreas, gallbladder, spleen. Left adrenal 2 cm nodule, normal kidneys, bladder, bowel, peritoneum. No enlarged lymph nodes. No abnormalities in the bones. She was admitted to the hospital and had CT chest next day which noted a large mass. Some dry irritating cough. She was discharged and f/u with dr. mccarty. She had a bronchoscopy on 05/30/[address] Mccarty. Found an endobronchial mass in the lateral segment of the right middle lobe. 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 Negative for TTF-1 and positive for P 40. She had pulmonary function studies in December 2020 with an FEV1 of 1.95 L in the right middle lobe only comprises 11% of the total lung capacity. She has not yet had PET/CT. had EBUS Dr. JOHNSON. Nodes all negative adrenal biopsy negative. PET/CT with disease localized, few nodes curious. 10/17/2021: Patient reports for post treatment follow up visit. 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 Towards the end of treatment she was diagnosed with C diff colitis treated first with oral Vancomycin and then Flagyl. Clinically, she is much improved. No further episodes of diarrhea. She appears non toxic. She is approximately 1 month out from treatment; she reports no significant or new issues other than dry, sometimes productive cough. Worse during the day; denies shortness of breath, sputum production, dysphagia, fever/chills, or hemoptysis. Plan to initiate maintenance Durvalumab as soon as insurance approves. She will need post treatment scan, as well. Will arrange for PET/CT scan in ~ 5 weeks with follow up thereafter. 11/09/21 she is feeling much better today, has not had diarrhea in 2 days. almost feels like she may be getting constipated she admits to not staying hydrated today and yesterday, so we encouraged her to push more fluids, which may help with her bowels as well she denies any other complaints, tolerating the fidaxomycin well energy is much improved and she is cooking again will get durvalumab today 11/29/21 she has some chest soreness, some cough. overall doing well. PET/CT with great outcome. 11/28/21 NO RESIDUAL RIGHT MIDDLE LOBE MASS OR PATHOLOGIC ADENOPATHY. SUBCUTANEOUS NODULE IN THE RIGHT LABIAL REGION, POSSIBLYA SEBACEOUS CYST. CLINICAL CORRELATION IS RECOMMENDED. on durvalumab x 1 month. will continue for 12 month. pooping is good. She does not have any more diarrhea. Exam - Physical Exam Vital signs: Temp Pulse Resp BP Pulse Ox 97.4 F L 74 18 138/70 98 01/19/22 11:36 01/19/22 11:36 01/19/22 11:36 01/19/22 11:36 01/19/22 11:36 ECOG PS:2 Pain: 0/10 General : patient is alert but appears markedly fatigued and drawn; left eye ptosis. HEENT: oral mucosa is dry/pink; no lesions or exudate; no facial droop; no JVD or thyromegaly. Lymph: no cervical, supraclavicular, axillary adenopathy. Heart: regular rate and rhythm no murmurs rubs or gallops. Abdomen: soft nontender nondistended, no hepatosplenomegaly. Lungs: clear to auscultation bilaterally. No wheezes, rales, rhonchi. Extremities: no clubbing cyanosis. trace bilateral edema L greater than right; she has tenderness to palpation of lower extremities bilaterally. Neurological: decreased strength in extremities x 4; 2/4; essentially non weightbearing per patient; gait not observed; she is a wheelchair; which is significant change from baseline exam; left eye ptosis and L lateral gaze deficit; no focal deficits Objective - Lab CBC & Chem 7: 01/16/22 18:36 01/19/22 04:45 Lab Results: 01/19/22 04:45: PHA Creatinine Clear 62.26, Sodium 139, Potassium 4.0, Chloride 103, Carbon Dioxide 26.9, BUN 22, Creatinine 0.72, Est GFR ( Amer) > 60, Est GFR (Non-Af Amer) > 60, Glucose 148 H, Calcium 8.6, Total Bilirubin 0.5, AST73 H, ALT 100 H, Alkaline Phosphatase 61, Total Protein 6.0 L, Albumin 3.1 L, Globulin 2.9, Albumin/Globulin Ratio 1.1 01/18/22 17:43: Angiotensin Convert Enz 25 Assessment and Plan (1) Generalized weakness 01/19/2022: Day #4 of high dose steroids (received Solu-medrol 1 Gram IV on 01/16/2022; followed by Prednisone 90 mg daily thereafter. She reports overall improvement in strength and swallowing. She has noticed more shortness of breathand decreased activity tolerance. She is now on oxygen 3 Liters, for sats in themid to low 80's with activity. -- appreciate neurological input CT and CTA head were both nonacute MRI nonacute on 01/11/2022 Recommend: possible anti-P/Q-type voltage-gated calcium channel antibody testing Consider outpatient NCS/EMG -- continue steroids at current dose -- will check ACTH, cortisol, TSH and free T4 - standard immunotherapy labs (these were last drawn on 12/06/2021) 01/16/2022: The patient reports a rather complicated clinical course over the pastseveral weeks. To briefly summarize, the patient reportedly had a fall at home on 11/14/2021. The patient's family reports that approximately 3 weeks after shefell; and ~ 2-3 days after last immunotherapy on 12/07/2021; she began having a multitude of complaints including headaches, dizziness, balance issues, trouble swallowing and progressive weakness in extremities x 4. The patient is markedlyfatigue, reports she is not even able to bathe or dress herself; can no longer ambulate and essentially cannot do any regular ADL's that she was doing a few months ago. Compared to baseline, this is an obvious deviation from her baseline, rather robust Performance Status. She reports worsening dyspnea/shortness of breath; hard to feel like she is getting adequate air. She also reports a severely dry mouth and has obvious unilateral ptosis of the left eye and left lateral gaze defecit. She saw her PCP, Dr. Espino approximately 1 week ago and he ordered imaging including brain MRI. Brain MRI was essentially negative; with no evidence of intracranial metastasis or other acute changes. I (2) Non-small cell lung cancer (NSCLC) 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 Stage IIB Completed concurrent chemoradiation for her cancer carboplatin and paclitaxol oct through sep 2021. followed by maintenance durvalumab. Started maintenance durvalumab (received 2 doses - 2 weeks apart) 10 mg/kg dosing- given 10/26/2021 and 11/09/2021. PET/CT 11/2021 [facility]. -- therapy changed to monthly dosing (Q 4 weeks - 1500 mg) - received 1 dose on:12/07/2021 Patient has had increasing O2 requirements during this hospitalization; now on 3li 02 for sats in the mid 80's, along with dry cough; Neuro is also following NIF and VC. Will check CT chest to rule out interstitial pneumonitis. (3) Clostridium difficile infection Diagnosed during end of treatment course; recurrent episodes x 3. Has completed two full rounds of treatment; has approximately 1.5 weeks left with oral Vancomycin pills. She does not report recurrent episodes of diarrhea or abdominal pain. (4) History of breast cancer - Time with Patient Total Time Spent with Patient: 15 min, 25 min Coordination of Care & Counseling Time: Greater than 50% of time spent with patient was for coordination of care (as documented) and [id number] counseling of patient and/or family. Documented By: Vernell Singletary APRN 01/19 8982 Signed By: <Electronically signed by BACILIO Singletary> 01/19/22 [address] [facility] Work Phone: [phone]) [phone] Progress note Author Ramona Lee [facility] January 19, 2022 2:40pm Note Date/Time January 19, 2022 2:40 pm [facility] [address] [place] [address] Hospitalist Progress Note Signed Patient: Melida Valerio MR#: [id number] : 1940 Acct:[id number] Age/Sex: 81 / F Adm Date: 2 Loc: Room: [address] [place] [address] Type : ADM INOo Attending Dr: Ramona Lee MD Copies to: ~ Date of Service: 01/19/2022 Subjective Subjective Narrative: Patient continues to have left-sided ptosis, she reports improvement of her symptoms. She has no headache, nausea or vomiting, abdominal pain, fever or chills. She does have mild double vision but has been improving since admissionand starting steroids. She reports some epigastric discomfort with band going to her back. She was evaluated today with a swallow study and noted to have esophageal dysmotility and GI consulted Exam Physical Exam Vital Signs: Temp Pulse Resp BP Pulse Ox 97.4 F L 74 18 138/70 98 01/19/22 11:36 01/19/22 11:36 01/19/22 11:36 01/19/22 11:36 01/19/22 11:36 Narrative: General: Awake, alert, oriented x3 not in acute distress Cardiovascular: Regular rate and rhythm , S1-S2 heard, no murmurs or gallops Lungs: No wheezing or rhonchi heard Gastrointestinal: Soft, nontender, bowel sounds heard Extremities: No edema Neurological: 5/5 strength in extremities, left eye ptosis, no other cranial pulses noted, symmetrical facial expressions otherwise, no focal motor deficit or sensory loss, pupils are reactive to light and symmetrical bilaterally Psych: Normal mood and affect Objective Lab Results CBC & Chem 7: 01/16/22 18:36 01/19/22 04:45 Meds Allergies and Active Meds Allergies RADHA Inhibitors Allergy (Verified 01/16/22 14:42) Unknown Reaction erythromycin base Allergy (Verified 01/16/22 14:42) Unknown Reaction rivaroxaban [From Xarelto] Allergy (Verified 01/16/22 14:42) Unknown Reaction tiotropium [From Spiriva with HandiHaler] Allergy (Verified 01/16/22 14:42) Unknown Reaction Active Meds: Active Medications Generic Name Dose Route Start Last Admin Trade Name Freq PRN Reason Stop Dose Admin Acetaminophen 650 mg 01/16/22 17:46 01/19/22 05:04 Acetaminophen 325 Mg Tablet PO 01/16/23 17:45 650 mg Q6HR PRN Administration Pain Scale 1 - 3 or fever Albuterol 2 puff 01/16/22 19:25 01/18/22 06:04 Albuterol Hfa 60 Puff/8 Gram Inhaler INHALATION 01/16/23 19:24 2 puff Q4H PRN Administration Dyspnea Amiodarone HCl 200 mg 01/17/22 09:00 01/19/22 08:07 Amiodarone 200 Mg Tablet PO 01/17/23 08:59 200 mg DAILY ALEXA Administration Amlodipine Besylate 5 mg 01/17/22 09:00 01/19/22 08:07 Amlodipine 5 Mg Tablet PO 01/17/23 08:59 5 mg DAILY ALEXA Administration Cyanocobalamin 1,000 mcg 01/24/22 09:00 Cyanocobalamin 1,000 Mcg/Ml Vial IM 02/14/22 09:01 Tu@0900 ALEXA Heparin Sodium (Porcine) 500 unit 01/18/22 06:00 01/19/22 08:07 Heparin-Lock 500 Unit/5 Ml Syringe IV-PUSH 01/18/23 05:59 500 unit DAILY ALEXA Administration Heparin Sodium (Porcine) 500 unit 01/17/22 15:48 01/19/22 05:04 Heparin-Lock 500 Unit/5 Ml Syringe IV-PUSH 01/17/23 15:47 500 unit PRN PRN Administration Flush Hydrochlorothiazide 25 mg 01/17/22 09:00 01/19/22 08:07 Hydrochlorothiazide 25 Mg Tablet PO 01/17/23 08:59 25 mg DAILY ALEXA Administration Levothyroxine Sodium 125 mcg 01/18/22 06:30 01/18/22 05:41 Levothyroxine 125 Mcg Tablet PO 01/18/23 06:29 125 mcg MoWeFr@0630 ALEXA Administration Levothyroxine Sodium 112 mcg 01/19/22 06:30 01/19/22 05:38 Levothyroxine 112 Mcg Tablet PO 01/17/23 06:29 112 mcg SuTuThSa@0630 ALEXA Administration Lorazepam 0.5 mg 01/16/22 19:25 01/17/22 23:32 Lorazepam 0.5 Mg Tablet PO 07/15/22 19:24 0.5 mg HS PRN Administration Sleep Ondansetron HCl 4 mg 01/16/22 17:46 Ondansetron 4 Mg/2 Ml Vial IV-PUSH 01/16/23 17:45 Q8H PRN Nausea And Vomiting Potassium Chloride 20 meq 01/17/22 09:00 01/19/22 08:06 Potassium Chloride Er 20 Meq Tab.Er.Prt PO 01/17/23 08:59 20 meq DAILY ALEXA Administration Prednisone 90 mg 01/18/22 16:00 01/19/22 08:06 Prednisone 10 Mg Tablet PO 01/18/23 15:59 90 mg DAILY ALEXA Administration Fluticasone/Salmeterol 1 puff 01/16/22 21:00 01/19/22 09:10 Fluticasone/Salmeterol 113-14 Mcg 60 Puff Inhaler INHALATION 01/16/23 20:59 1 puff BID ALEXA Administration Vancomycin HCl 250 mg 01/17/22 01:00 01/19/22 08:06 Vancomycin Hcl 250 Mg Capsule PO 01/20/22 09:01 250 mg BID ALEXA Administration Vancomycin HCl 250 mg 01/21/22 09:00 Vancomycin Hcl 250 Mg Capsule PO 01/27/22 09:01 DAILY ALEXA A&P - Hospitalist Assessment/Plan (1) Generalized weakness: (2) Ptosis of eyelid, left: (3) Diplopia: (4) History of breast cancer: (5) Non-small cell lung cancer (NSCLC): (6) 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: (7) Neuropathy: Plan Patient continues to have ptosis of the left eye but seems to have improved somehow since starting steroids. She is currently on 90 mg daily. Her neurological work- up was otherwise negative including the brain MRI and CTA. The palsy could be related to paraneoplastic syndrome, immunotherapy side effect or microvessel disease. She is currently being followed by neurology and oncology. Barium swallow done, showing evidence of esophageal dysmotility, consult GI Other medical problems Atrial fibrillation on amiodarone History of C. difficile colitis, on oral prednisone taper Hypothyroidism on levothyroxine replacement Documented By: Ramona Lee MD 01/19/22 1436 Signed By: <Electronically signed by Ramona Lee MD> 01/19/22 1440 [facility] Work Phone: [phone]) 995-174804-06-2022 Progress note Author Wilfrido Argueta [facility] January 18, 2022 5:00pm Note Date/Time January 18, 2022 11:1 3am [facility] [address] [place] [address] Neurology Progress Note Signed Patient: Melida Valerio MR#: [id number] : 1940 Acct:[id number] Age/Sex: 81 / F Adm Date: 2 Loc: Room: [address] [place] [address] Type : ADM INOo Attending Dr: Joseluis Yee MD Copies to: ~ Date of Service: 01/18/2022 Subjective Subjective Narrative: Patient sitting up in bed, states she feels somewhat improved from the dose of steroids yesterday. She does feel that she has a little bit of strength in her neck however continues to have difficulty swallowing thin liquids. Denies any dizziness and in fact states she was recently up to the bathroom and back to bedwithout dizziness or loss of balance. Intermittent headache overnight occipital and frontal. She does continue to feel winded after getting up to the bathroom or completing small tasks. States it is not new for her but it is slightly worse. Review of Systems Review of Systems Review of systems: Constitutional Constitutional: Pleasant, cooperative for exam, Denies any fever or chills Psych Normal Affect HEENT Eyes: Reports double vision with leftward gaze Cardiovascular Cardiovascular: Denies chest pain, Denies dyspnea Respiratory Respiratory: Continues to have some shortness of breath especially on exertion, denies cough Musculoskeletal Musculoskeletal: Reports generalized muscle weakness Neurologic Neurologic: Denies dizziness today, Denies headache(s), Reports chronic numbness and tingling bilateral feet left worse than right extends prison to the ankle. Exam Physical Exam Vital Signs: Temp Pulse Resp BP Pulse Ox 97.5 F L 74 18 152/72 H 97 01/18/22 07:29 01/18/22 07:29 01/18/22 07:29 01/18/22 07:29 01/18/22 07:29 Narrative: GENERAL EXAM: Constitutional - Patient in no acute distress, cooperative for exam Patient is alert and oriented x3 Apical regular rate and rhythm, lung sounds clear throughout Trace edema bilat LE Neck supple without carotid bruit Abdomen soft, non-tender NEURO EXAM: Attention span/concentration normal Speech is clear and fluent Cranial nerve II. Vision is intact. TANYA Cranial nerve III, IV and . Dysconjugate gaze. Extraocular muscles are intact. No nystagmus is appreciated Cranial nerve V and VII. No facial asymmetry is appreciated. Temperature and pinprick is equal bilaterally Cranial nerve VIII hearing is intact Cranial nerve IX and X speech is clear fluent. Palate elevates symmetrically Cranial nerve XI head turn side to side full range of motion. Shoulder shrug isequal bilaterally Cranial nerve XII tongue protrudes midline MOTOR EXAM: Strength is 3/5 left upper extremity, 5/5 right upper extremity, 5/5 bilateral lower extremities No pronator drift was appreciated Muscle tone and bulk are normal SENSORY EXAM: Sensory intact bilateral face and upper and lower extremities. CEREBELLAR EXAM: [id number] and alternating movements are intact and normal in bilateral upper extremities [id number] and alternating movements are intact and normal in lower extremities REFLEX EXAM: 2/4 at the bicep and brachialis bilaterally. 2/4 at the patella and achilles bilaterally. Objective Vital Signs Vital Signs: Vital Signs - 24 hr 01/17/22 11:24 01/17/22 15:37 01/17/22 19:50 Temperature 97.7 F 97.6 F 97.7 F Pulse Rate 61 63 66 Respiratory Rate 16 18 18 Blood Pressure 156/68 H 145/75 H 151/80 H 02 Sat by Pulse Oximetry 95 93 L 94 L 01/17/22 23:30 01/18/22 04:00 01/18/22 07:29 Temperature 97.9 F 97.9 F 97.5 F L Pulse Rate 67 77 74 Respiratory Rate 18 18 18 Blood Pressure 153/72 H 152/76 H 152/72 H 02 Sat by Pulse Oximetry 93 L 93 L 97 Labs CBC & Chem 7: 01/16/22 18:36 01/18/22 09:26 Lab Results: 01/17/22 09:15: Ammonia 22 Therapy Recommendations Therapy Recommendations: ST Recommendations Level of Supervision Independent Self Feeding Liquid Consistency Thin Liquids Recommendation Solid Consistency Regular Solids Recommendations Meat Consistency Whole Meats Recommendations Medication Administration Give Pills in Applesauce Dysphagia Swallow Precautions/ Sitting Upright (90 deg),Small Bites/Sips, Strategies Alternate Liquids/Solids,Sit Upright 30 Minutes Referral Recommendations Modified Barium Swallow Assessment/Plan (1) Ptosis of eyelid, left: Code(s): H02.402 - Unspecified ptosis of left eyelid Status: Acute (2) Diplopia: Code(s): H53.2 - Diplopia Status: Acute (3) Generalized weakness: Code(s): R53.1 - Weakness Status: Acute (4) Neuropathy: Code(s): G62.9 - Polyneuropathy, unspecified Status: Acute (5) History of breast cancer: Code(s): Z85.3 - Personal history of malignant neoplasm of breast Status: Acute Plan 81 year old woman with right lung SCC. She has left upper eyelid ptosis and diplopia due to dysconjugate gaze in the setting of generalized fatigue and weakness. She had noticed dysphagia to thin liquids which is not present today. Onset several weeks ago, though the diplopiawas less apparent to her, probably because the left upper eyelid hangs low enough to cover the pupillary aperture on the left. Considerations include a third nerve palsy (microvascular seems most likely, but rule out compressive/aneurysmal) or neuromuscular junction disorder (myasthenia gravis orlambert eaton because of breast cancer or because of the durvalumab). 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 No fatigability with muscle strength testing. Yesterday patient was reporting a bandlike sensation around her upper abdomen with some dyspnea associated, This has improved today. Some concern for diaphragmatic weakness secondary to these symptoms. Interval history: Patient does seem to have positive results from IV steroids yesterday. Patient does however report increased shortness of breath on exertion. Repeat NIF & vital capacity x1. No new focal deficits or other complaints. PLAN: Continue high-dose intravenous steroids, patient has some generalized improvement in the muscle strength, no fatigability noted today CT and CTA head were both nonacute MRI nonacute on 01/11/2022 Ammonia level 22 Secondary to patient's complaints of bandlike upper abdominal sensation and dyspnea will order NIF and VC to assess respiratory status with concerns for possible diaphragmatic involvement/weakness. Repeat x1 today due to increased shortness of breath and need for 1.5 L per nasal cannula Consider anti-P/Q-type voltage-gated calcium channel antibody testing Consider outpatient NCS/EMG Attestation Statement I agree with the above. Patient seen and examined. I think part of her left pupil is more readily visible today which perhaps meansthat her left upper eyelid ptosis is receding slightly. No drastic change though. If no response to steroids we could consider a lumbar puncture, though there is no specific etiology that I would be pursuing. I'm checking a serum ACElevel. Documented By: Elena Crump APRN 01/18/22 1109 Signed By: <Electronically signed by BACILIO Crump> 01/18/22 1141 <Electronically signed by Wilfrido Argueta DO> 01/18/22 1700 [facility] Work Phone: [phone]) 193-666604-06-2022 Progress note Author Joseluis Yee [facility] January 18, 2022 3:51pm Note Date/Time January 18, 2022 3:44 pm [facility] [address] [place] [address] Hospitalist Progress Note Signed Patient: Melida Valerio MR#: [id number] : 1940 Acct:[id number] Age/Sex: 81 / F Adm Date: 2 Loc: 3T Room: [address] [place] [address] Type : ADM INOo Attending Dr: Joseluis Yee MD Copies to: ~ Date of Service: 01/18/2022 Subjective Subjective Narrative: Patient seen and examined. Patient states weakness is getting better with IV steroids. She feels short of breath with exertion today and slightly desaturated requiring 1 to 2 L of oxygen. She is currently saturating 96% on room air. States that she does not have bandlike sensation along the epigastricregion anymore Exam Physical Exam Vital Signs: Temp Pulse Resp BP Pulse Ox 97.5 F L 72 24 142/78 H 95 01/18/22 07:29 01/18/22 11:55 01/18/22 11:55 01/18/22 11:55 01/18/22 11:55 Narrative: General: Awake, alert, oriented x3 not in acute distress HEENT: Normocephalic, atraumatic, PERRLA, normal mucosa Cardiovascular: Regular rate and rhythm , S1-S2 heard, no murmurs or gallops Lungs: No wheezing or rhonchi heard Gastrointestinal: Soft, nontender, bowel sounds heard Extremities: No edema Neurological: 5/5 strength in extremities, sensations intact, left eyelid ptosisnoted Skin: Dry and warm, no rashes or lesions Psych: Normal mood and affect Objective Lab Results CBC & Chem 7: 01/16/22 18:36 01/18/22 09:26 Meds Allergies and Active Meds Allergies RADHA Inhibitors Allergy (Verified 01/16/22 14:42) Unknown Reaction erythromycin base Allergy (Verified 01/16/22 14:42) Unknown Reaction rivaroxaban [From Xarelto] Allergy (Verified 01/16/22 14:42) Unknown Reaction tiotropium [From Spiriva with HandiHaler] Allergy (Verified 01/16/22 14:42) Unknown Reaction Active Meds: Active Medications Generic Name Dose Route Start Last Admin Trade Name Freq PRN Reason Stop Dose Admin Acetaminophen 650 mg 01/16/22 17:46 01/18/22 05:42 Acetaminophen 325 Mg Tablet PO 01/16/23 17:45 650 mg Q6HR PRN Administration Pain Scale 1 - 3 or fever Albuterol 2 puff 01/16/22 19:25 01/18/22 06:04 Albuterol Hfa 60 Puff/8 Gram Inhaler INHALATION 01/16/23 19:24 2 puff Q4H PRN Administration Dyspnea Amiodarone HCl 200 mg 01/17/22 09:00 01/18/22 09:23 Amiodarone 200 Mg Tablet PO 01/17/23 08:59 200 mg DAILY ALEXA Administration Amlodipine Besylate 5 mg 01/17/22 09:00 01/18/22 09:23 Amlodipine 5 Mg Tablet PO 01/17/23 08:59 5 mg DAILY ALEXA Administration Cyanocobalamin 1,000 mcg 01/24/22 09:00 Cyanocobalamin 1,000 Mcg/Ml Vial IM 02/14/22 09:01 Tu@0900 ALEXA Heparin Sodium (Porcine) 500 unit 01/18/22 06:00 01/18/22 09:23 Heparin-Lock 500 Unit/5 Ml Syringe IV-PUSH 01/18/23 05:59 500 unit DAILY ALEXA Administration Heparin Sodium (Porcine) 500 unit 01/17/22 15:48 Heparin-Lock 500 Unit/5 Ml Syringe IV-PUSH 01/17/23 15:47 PRN PRN Flush Hydrochlorothiazide 25 mg 01/17/22 09:00 01/18/22 09:23 Hydrochlorothiazide 25 Mg Tablet PO 01/17/23 08:59 25 mg DAILY ALEXA Administration Levothyroxine Sodium 125 mcg 01/18/22 06:30 01/18/22 05:41 Levothyroxine 125 Mcg Tablet PO 01/18/23 06:29 125 mcg MoWeFr@0630 ALEXA Administration Levothyroxine Sodium 112 mcg 01/19/22 06:30 Levothyroxine 112 Mcg Tablet PO 01/17/23 06:29 SuTuThSa@0630 ALEXA Lorazepam 0.5 mg 01/16/22 19:25 01/17/22 23:32 Lorazepam 0.5 Mg Tablet PO 07/15/22 19:24 0.5 mg HS PRN Administration Sleep Ondansetron HCl 4 mg 01/16/22 17:46 Ondansetron 4 Mg/2 Ml Vial IV-PUSH 01/16/23 17:45 Q8H PRN Nausea And Vomiting Potassium Chloride 20 meq 01/17/22 09:00 01/18/22 09:23 Potassium Chloride Er 20 Meq Tab.Er.Prt PO 01/17/23 08:59 20 meq DAILY ALEXA Administration Prednisone 90 mg 01/18/22 15:40 Prednisone 10 Mg Tablet PO 01/18/22 15:41 DAILY ONE Fluticasone/Salmeterol 1 puff 01/16/22 21:00 01/18/22 06:05 Fluticasone/Salmeterol 113-14 Mcg 60 Puff Inhaler INHALATION 01/16/23 20:59 1 puff BID ALEXA Administration Vancomycin HCl 250 mg 01/17/22 01:00 01/18/22 09:23 Vancomycin Hcl 250 Mg Capsule PO 01/20/22 09:01 250 mg BID ALEXA Administration Vancomycin HCl 250 mg 01/21/22 09:00 Vancomycin Hcl 250 Mg Capsule PO 01/27/22 09:01 DAILY [facility] A&P - Hospitalist Assessment/Plan (1) Generalized weakness: (2) Ptosis of eyelid, left: (3) Diplopia: (4) History of breast cancer: (5) Non-small cell lung cancer (NSCLC): (6) 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 Ordered anti-P/Q with VGCC antibodies Stop IV fluid Telemetry Fall precautions PT/OT DVT prophylaxis CODE STATUS full code Documented By: Joseluis Yee MD 01/18/22 1542 Signed By: <Electronically signed by Joseluis Yee MD> 01/18/22 1551 [facility] Work Phone: [phone]) 212-954904-05-2022 Progress note Author Wilfrido Argueta [facility] January 17, 2022 4:08pm Note Date/Time January 17, 2022 10:5 3am [facility] [address] [place] [address] Neurology Progress Note Signed Patient: Melida Valerio MR#: [id number] : 1940 Acct:[id number] Age/Sex: 81 / F Adm Date: 2 Loc: Room: [address] [place] [address] Type : ADM INOo Attending Dr: Joseluis Yee MD Copies to: ~ Date of Service: 01/17/2022 Subjective Subjective Narrative: Patient was seen and examined sitting upright in bed this morning. Patient states that she has had a headache this morning and involves her entire head. States that it was worse lying down and slightly better with sitting up. Patient states that she got some Tylenol which also relieved the pain slightly. Patient did mention a sensation of being slightly dizzy and feeling like she was in Jell-O. This sensation has subsequently went away. Patient also reports abelt-like tightness in her upper abdomen that was associated with some dyspnea this morning that has resolved now. Patient reports that her generalized weakness is slightly better today, denies any diplopia or dysphagia. Reports chronic history of neuropathy with numbness and tingling in b/l feet, worse on L. Patient denies any other acute complaints or concerns at this time. Review of Systems Review of Systems Review of systems: Constitutional: Patient denies any fevers or chills Cardiac: Patient denies any palpitation or chest pain Respiratory: Patient does report some shortness of breath but denies any cough GI: Patient was reporting a belt-like tightness sensation in upper abdomen earlier this morning with some shortness of breath. Patient denies any abdominal pain, n/v/d/c Neuro: Patient reported headache this morning along with a dizzy sensation. Patient states that she has chronic numbness and tingling in bilateral feet worse on the left. Patient denies any diplopia, dysphagia this morning. Exam Physical Exam Vital Signs: Temp Pulse Resp BP Pulse Ox 97.9 F 60 16 134/72 92 L 01/17/22 07:31 01/17/22 07:31 01/17/22 07:31 01/17/22 07:31 01/17/22 07:31 Narrative: GENERAL EXAM: * Constitutional - Patient appears well nourished and well groomed * Patient is alert and oriented. * Trace edema of bilateral lower extremities NEURO EXAM: * Attention span/concentration normal. * Speech is clear and fluent * Cranial nerve II.? Vision is intact. TANYA * Cranial nerve III, IV and .? Left ptosis. Eye movements are normal however eyes are disconjugate. No nystagmus is appreciated * Cranial nerve V and VII.? No facial asymmetry is appreciated.? Temperature and pinprick is equal bilaterally * Cranial nerve VIII. Hearing is intact * Cranial nerve IX and X. Speech is clear & fluent.? Palate elevates symmetrically * Cranial nerve XI. Head turn side to side with full range of motion.? Shoulder shrug is equal bilaterally * Cranial nerve XII. Tongue is midline full range of motion MOTOR EXAM: * Strength is 3+/5 in the left upper extremity and 5/5 in bilateral lower extremities.? 5/5 in the left upper extremity.? Left arm muscle strength and motion testing was painful for patient in lateral aspect of L upper arm, not painful at rest. * Fatigability muscle strength testing did not demonstrate any deficits in neck, upper extremities or lower extremities * Muscle tone and bulk are normal * Gait not assessed SENSORY EXAM: * Temperature, pinprick, touch are intact in all 4 extremities. CEREBELLAR EXAM: * Finger-nose and alternating movements intact in b/l upper extremity. * No ataxia noted today REFLEX EXAM: * ?+1/4 in bilateral upper extremities and +2/4 bilateral patella.? No pathologic reflexes.? Objective Vital Signs Vital Signs: Vital Signs - 24 hr 01/16/22 17:21 01/16/22 20:00 01/16/22 23:57 Temperature 97.5 F L 97.5 F L 97.5 F L Pulse Rate 66 63 Pulse Rate [Monitor] 58 L Respiratory Rate 18 18 18 Blood Pressure 165/67 H 169/71 H Blood Pressure [Left Arm] 154/81 H 02 Sat by Pulse Oximetry 98 98 95 01/17/22 04:45 01/17/22 07:31 Temperature 97.4 F L 97.9 F Pulse Rate 64 60 Pulse Rate [Monitor] Respiratory Rate 18 16 Blood Pressure 149/81 H 134/72 Blood Pressure [Left Arm] 02 Sat by Pulse Oximetry 95 92 L Labs CBC & Chem 7: 01/16/22 18:36 01/16/22 18:36 Lab Results: 01/16/22 18:36: Hemoglobin A1c 5.6 Assessment/Plan (1) Ptosis of eyelid, left: Code(s): H02.402 - Unspecified ptosis of left eyelid Status: Acute (2) Diplopia: Code(s): H53.2 - Diplopia Status: Acute (3) Generalized weakness: Code(s): R53.1 - Weakness Status: Acute (4) Neuropathy: Code(s): G62.9 - Polyneuropathy, unspecified Status: Acute (5) History of breast cancer: Code(s): Z85.3 - Personal history of malignant neoplasm of breast Status: Acute Plan 81 year old woman with right lung SCC. She has left upper eyelid ptosis and diplopia due to dysconjugate gaze in the setting of generalized fatigue and weakness. She had noticed dysphagia to thin liquids which is not present today. Onset several weeks ago, though the diplopiawas less apparent to her, probably because the left upper eyelid hangs low enough to cover the pupillary aperture on the left. Considerations include a third nerve palsy (microvascular seems most likely, but rule out compressive/aneurysmal) or neuromuscular junction disorder (myasthenia gravis orlambert eaton because of breast cancer or because of the durvalumab). 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 Exam today did not demonstrate any fatigability with muscle strength testing. However, patient was reporting a bandlike sensation around her upper abdomen with some dyspnea associated. Some concern for diaphragmatic weakness secondaryto these symptoms. PLAN: Continue high-dose intravenous steroids, patient has some generalized improvement in the muscle strength, no fatigability noted today CT and CTA head were both nonacute Ammonia level ordered and pending Secondary to patient's complaints of bandlike upper abdominal sensation and dyspnea will order NIF and VC to assess respiratory status with concerns for possible diaphragmatic involvement/weakness Consider anti-P/Q-type voltage-gated calcium channel antibody testing Consider outpatient NCS/EMG Attestation Statement I agree with the above. Patient seen and examined. Exam continues to show significant left upper eyelid ptosis and left ocular restricted abduction resulting in dysconjugate gaze and diplopia with leftward gaze. Consider third cranial neuropathy to explain the ptosis. Consider sixth cranial neuropathy to explain the left ocular restricted abduction. Consider neuromuscular junction disorder as overarching cause for both, with related concern of paraneoplastic syndrome as unintended consequence from immunotherapy (durvalumab). No underlying brainstem lesion visualized on contrast enhanced MRI. If considering multiple cranial neuropathies, differential is very broad, but suspicion for infection would be low. No leptomeningeal enhancement around brainstem concerning for neoplastic cause. Carboplatin has been associated with cranial neuropathy(s). Do not suspect Duncan Garcia syndrome. Low suspicion for vasculitis. Documented By: Jarad Walters DO, RES 01/17/22 1 048 Signed By: <Electronically signed by DO JOANNE Walters> 01/17/22 1128 <Electronically signed by Wilfrido Argueta DO> 01/17/22 160[address] [facility] Work Phone: [phone]) 448-757704-05-2022 Progress note Author Joseluis Yee [facility] January 17, 2022 2:18pm Note Date/Time January 17, 2022 1:27 pm [facility] [address] [place] [address] Hospitalist Progress Note Signed Patient: Melida Valerio MR#: [id number] : 1940 Acct:[id number] Age/Sex: 81 / F Adm Date: 2 Loc: Room: [address] [place] [address] Type : ADM INOo Attending Dr: Joseluis Yee MD Copies to: ~ Date of Service: 01/17/2022 Subjective Subjective Narrative: Patient seen and examined. Patient states that weakness has improved slightly since yesterday and is feeling better. States that she has tightness along the epigastric region moving to the sides laterally and around to the back, describes it as a tight belt. Denies any shortness of breath, cough, chest pain. Exam Physical Exam Vital Signs: Temp Pulse Resp BP Pulse Ox 97.7 F 61 16 156/68 H 95 01/17/22 11:24 01/17/22 11:24 01/17/22 11:24 01/17/22 11:24 01/17/22 11:24 Narrative: General: Awake, alert, oriented x3 not in acute distress HEENT: Normocephalic, atraumatic, PERRLA, normal mucosa Cardiovascular: Regular rate and rhythm , S1-S2 heard, no murmurs or gallops Lungs: No wheezing or rhonchi heard Gastrointestinal: Soft, nontender, bowel sounds heard Extremities: No edema Neurological: 4/5 strength in lower extremities, 4/5 strength in upper extremities, sensations intact, left eyelid ptosis noted Skin: Dry and warm, no rashes or lesions Psych: Normal mood and affect Objective Lab Results CBC & Chem 7: 01/16/22 18:36 01/16/22 18:36 Meds Allergies and Active Meds Allergies RADHA Inhibitors Allergy (Verified 01/16/22 14:42) Unknown Reaction erythromycin base Allergy (Verified 01/16/22 14:42) Unknown Reaction rivaroxaban [From Xarelto] Allergy (Verified 01/16/22 14:42) Unknown Reaction tiotropium [From Spiriva with HandiHaler] Allergy (Verified 01/16/22 14:42) Unknown Reaction Active Meds: Active Medications Generic Name Dose Route Start Last Admin Trade Name Freq PRN Reason Stop Dose Admin Acetaminophen 650 mg 01/16/22 17:46 01/17/22 08:42 Acetaminophen 325 Mg Tablet PO 01/16/23 17:45 650 mg Q6HR PRN Administration Pain Scale 1 - 3 or fever Albuterol 2 puff 01/16/22 19:25 01/17/22 10:40 Albuterol Hfa 60 Puff/8 Gram Inhaler INHALATION 01/16/23 19:24 2 puff Q4H PRN Administration Dyspnea Amiodarone HCl 200 mg 01/17/22 09:00 01/17/22 08:41 Amiodarone 200 Mg Tablet PO 01/17/23 08:59 200 mg DAILY ALEXA Administration Amlodipine Besylate 5 mg 01/17/22 09:00 01/17/22 08:39 Amlodipine 5 Mg Tablet PO 01/17/23 08:59 5 mg DAILY ALEXA Administration Hydrochlorothiazide 25 mg 01/17/22 09:00 01/17/22 08:40 Hydrochlorothiazide 25 Mg Tablet PO 01/17/23 08:59 25 mg DAILY ALEXA Administration Sodium Chloride 1,000 mls @ 75 mls/hr 01/16/22 18:00 01/17/22 07:28 0.9% Sodium Chloride 1,000 Ml IV 01/17/22 20:39 75 mls/hr .[id number] ALEXA Administration Levothyroxine Sodium 112 mcg 01/17/22 06:30 01/17/22 06:06 Levothyroxine 112 Mcg Tablet PO 01/17/23 06:29 112 mcg [id number] ALEXA Administration Levothyroxine Sodium 125 mcg 01/18/22 06:30 Levothyroxine 125 Mcg Tablet PO 01/18/23 06:29 [id number] ALEXA Lorazepam 0.5 mg 01/16/22 19:25 Lorazepam 0.5 Mg Tablet PO 07/15/22 19:24 HS PRN Sleep Ondansetron HCl 4 mg 01/16/22 17:46 Ondansetron 4 Mg/2 Ml Vial IV-PUSH 01/16/23 17:45 Q8H PRN Nausea And Vomiting Potassium Chloride 20 meq 01/17/22 09:00 01/17/22 08:41 Potassium Chloride Er 20 Meq Tab.Er.Prt PO 01/17/23 08:59 20 meq DAILY ALEXA Administration Fluticasone/Salmeterol 1 puff 01/16/22 21:00 01/17/22 07:56 Fluticasone/Salmeterol 113-14 Mcg 60 Puff Inhaler INHALATION 01/16/23 20:59 1 puff BID ALEXA Administration Vancomycin HCl 250 mg 01/17/22 01:00 01/17/22 08:41 Vancomycin Hcl 250 Mg Capsule PO 01/20/22 09:01 250 mg BID ALEXA Administration Vancomycin HCl 250 mg 01/21/22 09:00 Vancomycin Hcl 250 Mg Capsule PO 01/27/22 09:01 DAILY ALEXA A&P - Hospitalist Assessment/Plan (1) Generalized weakness: (2) Ptosis of eyelid, left: (3) Diplopia: (4) History of breast cancer: (5) Non-small cell lung cancer (NSCLC): (6) 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: (7) Neuropathy: Plan Patient states she feels little better today CTA head showed no acute pathology Labs essentially normal Continue gentle IV hydration. Encouraged patient on oral rehydration Neurology on board, plan for nerve conduction studies/EMG as an outpatient Telemetry Fall precautions PT/OT DVT prophylaxis CODE STATUS full code Documented By: Joseluis Yee MD 01/17/22 1325 Signed By: <Electronically signed by Joseluis Yee MD> 01/17/22 [address] [facility] Work Phone: [phone]) 366-853004-05-2022 History and physical note Author Joseluis Yee [facility] January 17, 2022 1:25pm Note Date/Time January 16, 2022 5:51 pm [facility] [address] [place] [address] Hospitalist H&P Signed Patient: Melida Valerio MR#: [id number] : 1940 Acct:[id number] Age/Sex: 81 / F Adm Date: 2 Loc: Room: [address] [place] [address] Type : ADM INOo Attending Dr: Joseluis Yee MD Copies to: MD Wong Miranda,~ HPI DATE OF EXAMINATION: 01/16/22 CHIEF COMPLAINT: Generalized weakness HISTORY OF PRESENT ILLNESS: Patient is a 81-year-old lady past medical history of lung cancer s/p chemoradiation therapy, currently on immunotherapy admitted directly from oncologist office because of profound generalized weakness. Patient states thatshe had a fall 3 months ago in October. While she is recovering from the fall, she was started on immunotherapy. States that she has noticed weakness little later which has been progressively worsening. For the past 1 week she could barely get up from the bed and do her daily activities which is very unusual to her. She noticed drooping of the left eyelid about 2 to 3 weeks ago. She also noticed tremors in her upper extremities with activity about the same time. States that she feels dizzy and nauseous when she stands up from sitting position. She currently denies any shortness of breath, cough, chest pain, headache, nausea, vomiting, abdominal pain, urinary complaints, fever and chills. 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 Nicotine dependence, cigarettes, in remission Pernicious anemia Primary insomnia Surgical History History of appendectomy History of hernia repair History of hysterectomy History of left breast biopsy History of tonsillectomy Family History Other Breast cancer Pancreatic cancer Prostate cancer Social History Smoking Status: Former smoker Tobacco Type: cigarettes Substance Use Type: None Meds Medications and Allergies Allergies RADHA Inhibitors Allergy (Verified 01/16/22 14:42) Unknown Reaction erythromycin base Allergy (Verified 01/16/22 14:42) Unknown Reaction rivaroxaban [From Xarelto] Allergy (Verified 01/16/22 14:42) Unknown Reaction tiotropium [From Spiriva with HandiHaler] Allergy (Verified 01/16/22 14:42) Unknown Reaction Home Medications albuterol sulfate 90 mcg/actuation aerosol inhaler (ProAir HFA) 2 puff INHALATION Q4H PRN 06/07/21 [History Confirmed 01/16/22] amiodarone 200 mg tablet 200 mg PO DAILY 06/07/21 [History Confirmed 01/16/22] amlodipine 5 mg tablet 5 mg PO DAILY 06/07/21 [History Confirmed 01/16/22] fluticasone 250 mcg-salmeterol 50 mcg/dose blistr powdr for inhalation (Advair Diskus) 1 inh INHALATION Q12H 06/07/21 [History Confirmed 01/16/22] hydrochlorothiazide 25 mg tablet 25 mg PO DAILY 06/07/21 [History Confirmed 01/16/22] levothyroxine 112 mcg tablet 112 mcg PO DIRECTED 06/07/21 [History Confirmed 01/16/22] levothyroxine 125 mcg tablet 125 mcg PO QMWF 06/07/21 [History Confirmed 01/16/22] potassium chloride 20 mEq tablet,extended release 20 meq PO DAILY #30 tab 11/23/21 [Rx Confirmed 01/16/22] vancomycin 125 mg capsule 125 mg PO DIRECTED #98 cap 12/23/21 [Rx Confirmed 01/16/22] lorazepam 0.5 mg tablet 0.5 mg PO HS PRN 30 Days #60 tab 01/10/22 [Rx Confirmed 01/16/22] Exam Physical Exam Vital Signs: Temp Pulse Resp BP Pulse Ox 97.5 F L 58 L 18 154/81 H 98 01/16/22 17:21 01/16/22 17:21 01/16/22 17:21 01/16/22 17:21 01/16/22 17:21 Narrative: General: Awake, alert, oriented x3 not in acute distress HEENT: Normocephalic, atraumatic, PERRLA, normal mucosa Cardiovascular: Regular rate and rhythm , S1-S2 heard, no murmurs or gallops Lungs: No wheezing or rhonchi heard Gastrointestinal: Soft, nontender, bowel sounds heard Extremities: No edema Neurological: 4/5 strength in lower extremities, 4/5 strength in upper extremities, sensations intact, left eyelid ptosis noted Skin: Dry and warm, no rashes or lesions Psych: Normal mood and affect A&P - Hospitalist Assessment/Plan (1) Generalized weakness: (2) Ptosis of eyelid, left: (3) Diplopia: (4) History of breast cancer: (5) Non-small cell lung cancer (NSCLC): (6) 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: (7) Neuropathy: Plan Patient admitted directly for generalized weakness from oncologist office Left eyelid ptosis, diplopia and disconjugate gaze noted Neurology and oncology consulted Patient will be started on high-dose steroids. Symptoms could be from immunotherapy CTA head has been ordered MRI brain with and without contrast showed no acute pathology which is done recently We will order stat labs Gentle IV hydration as patient looks dehydrated Telemetry Fall precautions PT/OT DVT prophylaxis CODE STATUS full code Documented By: Joseluis Yee MD 01/16/22 7910 Signed By: <Electronically signed by Joseluis Yee MD> 01/17/22 [address] [facility] Work Phone: [phone]) 291-936604-04-2022 Progress note Author Bertha Christianson [facility] January 16, 2022 6:19pm Note Date/Time January 16, 2022 6:15 pm [facility] at [address] [address] Hem/Onc Follow Up Note - OP Signed Patient: Melida Valerio MR#: [id number] : 1940 Acct:[id number] Age/Sex: 81 / F Type: ADM IN Copies to: Wong Espino DO~ Date of Service: 01/16/2022 Time of Service: 18:14 - Assessment & Plan (1) Generalized weakness Plan: 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 Stage IIB Completed concurrent chemoradiation for her cancer carboplatin and paclitaxol oct through sep 2021. followed by maintenance durvalumab. Started maintenance durvalumab (received 2 doses - 2 weeks apart) 10 mg/kg dosing- given 10/26/2021 and 11/09/2021. PET/CT 11/2021 [facility]. -- therapy changed to monthly dosing (Q 4 weeks - 1500 mg) - received 1 dose on:12/07/2021 01/16/2022: The patient reports a rather complicated clinical course over the pastseveral weeks. To briefly summarize, the patient reportedly had a fall at home on 11/14/2021. The patient's family reports that approximately 3 weeks after shefell; and ~ 2-3 days after last immunotherapy on 12/07/2021; she began having a multitude of complaints including headaches, dizziness, balance issues, trouble swallowing and progressive weakness in extremities x 4. The patient is markedlyfatigue, reports she is not even able to bathe or dress herself; can no longer ambulate and essentially cannot do any regular ADL's that she was doing a few months ago. Compared to baseline, this is an obvious deviation from her baseline, rather robust Performance Status. She reports worsening dyspnea/shortness of breath; hard to feel like she is getting adequate air. She also reports a severely dry mouth and has obvious unilateral ptosis of the left eye and left lateral gaze defecit. She saw her PCP, Dr. Espino approximately 1 week ago and he ordered imaging including brain MRI. Brain MRI was essentially negative; with no evidence of intracranial metastasis or other acute changes. I SUGGEST HIGH DOSE STEROIDS to reverse potential autoimmune condition. The hospitalist team was contacted (Dr. Yee) and plan will be to admit patient under hospitalist service. Recommend: 1 gram IV Solu-Medrol today; followed by 1 mg/kg Prednisone orally daily thereafter. This was relayed to theprimary team and we appreciate both neurology and hospitalist assistance. Clostridium difficile infection RECURRENT Diagnosed during end of treatment course; Just completed a third or fourth round of therapy with Vancomycin but reports improvement in symptoms. She does not report recurrent episodes of diarrhea or abdominal pain. - History of Present Illness HPI: 81-year-old female referred from Dr. Mccarty whom I previously followed at [facility] for breast cancer. Past medical history includes hypertension, chronic venous insufficiency, gastroesophageal reflux disease, type 2 diabetes, quit smoking in 1999, pernicious anemia, hypothyroidism, iron deficiency anemia, paroxysmal atrial fibrillation, hyperlipidemia, chronic bronchitis.. She had a hysterectomy and nephrectomy in her 20s for endometriosis. Outpatient medications include ProAir, levothyroxine, hydrochlorothiazide, amlodipine, montelukast, amiodarone. DEXA scan from 2018 shows osteopenia in the hip and normal in the spine echocardiogram from May 2019 shows ejection fraction of greater than 55%, no significant wall motion abnormalities and mild diastolic dysfunction. Slightly elevated right-sided pressures. No significant valvular abnormalities. She does have a sister with breast cancer in her 40s, mother sister had breast cancer in her 70s, mother's other sister had breast cancer in her 70s, mother had breast cancer in her 50s. Melida has 2 adopted children. She was diagnosed with ER/WA positive HER-2 negative breast cancer in 2009 at a hospital in [place]. She got adjuvant radiotherapy following lumpectomy. She did not get chemotherapy and refused adjuvant tamoxifen and has been monitored since. CAT scan of the chest from January 2017 showed no evidence of disease. She followed up with mammograms regularly and they were all normal. She had some short of breath since December 2020. In late April she noted a slight right upper quadrant pain. Worse with deep breathing. She went to ER on 05/16/21. She had XR with R sided consolidation. and A CT of the abdomen and pelvis from May 16, 2021 with IV contrast shows normallung bases, normal liver, pancreas, gallbladder, spleen. Left adrenal 2 cm nodule, normal kidneys, bladder, bowel, peritoneum. No enlarged lymph nodes. No abnormalities in the bones. She was admitted to the hospital and had CT chest next day which noted a large mass. Some dry irritating cough. She was discharged and f/u with dr. mccarty. She had a bronchoscopy on 05/30/[address] Mccarty. Found an endobronchial mass in the lateral segment of the right middle lobe. 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 Negative for TTF-1 and positive for P 40. She had pulmonary function studies in December 2020 with an FEV1 of 1.95 L in the right middle lobe only comprises 11% of the total lung capacity. She has not yet had PET/CT. had EBUS Dr. JOHNSON. Nodes all negative adrenal biopsy negative. PET/CT with disease localized, few nodes curious. 10/17/2021: Patient reports for post treatment follow up visit. 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 Towards the end of treatment she was diagnosed with C diff colitis treated first with oral Vancomycin and then Flagyl. Clinically, she is much improved. No further episodes of diarrhea. She appears non toxic. She is approximately 1 month out from treatment; she reports no significant or new issues other than dry, sometimes productive cough. Worse during the day; denies shortness of breath, sputum production, dysphagia, fever/chills, or hemoptysis. Plan to initiate maintenance Durvalumab as soon as insurance approves. She will need post treatment scan, as well. Will arrange for PET/CT scan in ~ 5 weeks with follow up thereafter. 11/09/21 she is feeling much better today, has not had diarrhea in 2 days. almost feels like she may be getting constipated she admits to not staying hydrated today and yesterday, so we encouraged her to push more fluids, which may help with her bowels as well she denies any other complaints, tolerating the fidaxomycin well energy is much improved and she is cooking again will get durvalumab today 11/29/21 she has some chest soreness, some cough. overall doing well. PET/CT with great outcome. 11/28/21 NO RESIDUAL RIGHT MIDDLE LOBE MASS OR PATHOLOGIC ADENOPATHY. SUBCUTANEOUS NODULE IN THE RIGHT LABIAL REGION, POSSIBLYA SEBACEOUS CYST. CLINICAL CORRELATION IS RECOMMENDED. on durvalumab x 1 month. will continue for 12 month. pooping is good. She does not have any more diarrhea. 01/16/2022: Melida is here for add on visit due to multiple issues prior to next cycle of maintenance Durvalumab. 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 The patient reports a rather complicated clinical course over the past several weeks. To briefly summarize, the patient reportedly had a fall at home on 11/14/2021. The patient's family reports that approximately 3 weeks after she fell; and ~ 2-3 days after last immunotherapy; she began having a multitude of complaints including headaches, dizziness, balance issues, trouble swallowing and progressive weakness in extremities x 4. The patient is markedly fatigue, reports she is not even able to bathe or dress herself; can no longer ambulate and essentially cannot do any regular ADL's that she was doing a few months ago.Of note, the patient is usually with robust performance status and this is clearly a deviation of her baseline. She reports worsening dyspnea/shortness of breath; hard to feel like she is getting adequate air. She also reports a severely dry mouth and has obvious unilateral ptosis of the left eye. She was evaluated by Dr. Argueta and Ana Mari. We will direct admit under hospitalist for high dose steroids for severe weakness. - Physical Exam ECOG PS:3 General : patient is alert but appears markedly fatigued and drawn; left eye ptosis. HEENT: oral mucosa is dry/pink; no lesions or exudate; no facial droop; no JVD or thyromegaly. Lymph: no cervical, supraclavicular, axillary adenopathy. Heart: regular rate and rhythm no murmurs rubs or gallops. Abdomen: soft nontender nondistended, no hepatosplenomegaly. Lungs: clear to auscultation bilaterally. No wheezes, rales, rhonchi. Extremities: no clubbing cyanosis. trace bilateral edema L greater than right; she has tenderness to palpation of lower extremities bilaterally. Neurological: decreased strength in extremities x 4; 2/4; essentially non weightbearing per patient; gait not observed; she is a wheelchair; which is significant change from baseline exam; left eye ptosis and L lateral gaze defecit; no focal deficits - Time with Patient Coordination of Care & Counseling Time: Greater than 50% of time spent with patient was for coordination of care (as documented) and [id number] counseling of patient and/or family. [facility] - Medical History Medical History: Medical History (Last Reviewed 11/14/21 @ 11:13 by Hilda Woody RN) Adenomatous colon polyp Allergic rhinitis Autoimmune hypothyroidism Chronic venous insufficiency Dysuria-frequency syndrome Essential hypertension GERD (gastroesophageal reflux disease) History of left breast cancer lumpectomy, radiation treatment History of tobacco abuse Hyperlipidemia Iron deficiency anemia secondary to blood loss (chronic) snf (current) use of inhaled steroids Nicotine dependence, cigarettes, in remission Pernicious anemia Primary insomnia - Surgical History Surgical History: Surgical History (Last Reviewed 11/14/21 @ 11:13 by Hilda Woody RN) History of appendectomy History of hernia repair History of hysterectomy History of left breast biopsy History of tonsillectomy - Family History Family History: Family History (Last Reviewed 10/13/21 @ 11:45 by Keely Coughlin LPN) Other Breast cancer Pancreatic cancer Prostate cancer - Social History Smoking Status: Former smoker Tobacco Type: cigarettes Substance Use Type: None Additional Data - Additional Objective Data Height/Weight: Height 5 ft 5 in Weight 89.9 kg Vital Signs: 01/16/22 17:21 Temperature 97.5 F L Pulse Rate [Monitor] 58 L Respiratory Rate 18 Blood Pressure [Left Arm] 154/81 H 02 Sat by Pulse Oximetry 98 Distress Screening: Expressed Feelings Anxiety Ineffective Coping Comment anxiety due to recenty weakness - Lab Results Labs - Last 7 Days 01/16/22 17:45: COVID-19 PCR Interp N/A - Home Medications and Allergies Allergies/Adverse Reactions: Allergies RADHA Inhibitors Allergy (Verified 01/16/22 14:42) Unknown Reaction erythromycin base Allergy (Verified 01/16/22 14:42) Unknown Reaction rivaroxaban [From Xarelto] Allergy (Verified 01/16/22 14:42) Unknown Reaction tiotropium [From Spiriva with HandiHaler] Allergy (Verified 01/16/22 14:42) Unknown Reaction Home Medications: Home Medications albuterol sulfate 90 mcg/actuation aerosol inhaler (ProAir HFA) 2 puff INHALATION Q4H PRN 06/07/21 [History Confirmed 01/16/22] amiodarone 200 mg tablet 200 mg PO DAILY 06/07/21 [History Confirmed 01/16/22] amlodipine 5 mg tablet 5 mg PO DAILY 06/07/21 [History Confirmed 01/16/22] fluticasone 250 mcg-salmeterol 50 mcg/dose blistr powdr for inhalation (Advair Diskus) 1 inh INHALATION Q12H 06/07/21 [History Confirmed 01/16/22] hydrochlorothiazide 25 mg tablet 25 mg PO DAILY 06/07/21 [History Confirmed 01/16/22] levothyroxine 112 mcg tablet 112 mcg PO DIRECTED 06/07/21 [History Confirmed 01/16/22] levothyroxine 125 mcg tablet 125 mcg PO QMWF 06/07/21 [History Confirmed 01/16/22] potassium chloride 20 mEq tablet,extended release 20 meq PO DAILY #30 tab 11/23/21 [Rx Confirmed 01/16/22] vancomycin 125 mg capsule 125 mg PO DIRECTED #98 cap 12/23/21 [Rx Confirmed 01/16/22] lorazepam 0.5 mg tablet 0.5 mg PO HS PRN 30 Days #60 tab 01/10/22 [Rx Confirmed 01/16/22] Dictated By: Bertha Christianson II, DO DD/ Signed By: <Electronically signed by Bertha Christianson II, DO> 01/16/22 1819 [facility] Work Phone: [phone] [id number] Progress note Author Vernell Singletary [facility] January 16, 2022 5:46pm Note Date/Time January 16, 2022 5:16 pm [facility] [place] [id number] Hem/Onc Follow Up Note - OP Signed Patient: Melida Valerio MR#: [id number] : 1940 Acct:[id number] Age/Sex: 81 / F Type: REG RCR Copies to: DO Hiral Teague DO~ Subjective Date/Time of Service: Date of Service: 01/16/2022 Time of Service: 16:56 Chief Complaint: Patient is here today to discuss multiple issues going on with her. HPI: 81-year-old female referred from Dr. Mccarty whom I previously followed at [facility] for breast cancer. Past medical history includes hypertension, chronic venous insufficiency, gastroesophageal reflux disease, type 2 diabetes, quit smoking in 1999, pernicious anemia, hypothyroidism, iron deficiency anemia, paroxysmal atrial fibrillation, hyperlipidemia, chronic bronchitis.. She had a hysterectomy and nephrectomy in her 20s for endometriosis. Outpatient medications include ProAir, levothyroxine, hydrochlorothiazide, amlodipine, montelukast, amiodarone. DEXA scan from 2018 shows osteopenia in the hip and normal in the spine echocardiogram from May 2019 shows ejection fraction of greater than 55%, no significant wall motion abnormalities and mild diastolic dysfunction. Slightly elevated right-sided pressures. No significant valvular abnormalities. She does have a sister with breast cancer in her 40s, mother sister had breast cancer in her 70s, mother's other sister had breast cancer in her 70s, mother had breast cancer in her 50s. Melida has 2 adopted children. She was diagnosed with ER/WA positive HER-2 negative breast cancer in 2009 at a hospital in [place]. She got adjuvant radiotherapy following lumpectomy. She did not get chemotherapy and refused adjuvant tamoxifen and has been monitored since. CAT scan of the chest from January 2017 showed no evidence of disease. She followed up with mammograms regularly and they were all normal. She had some short of breath since December 2020. In late April she noted a slight right upper quadrant pain. Worse with deep breathing. She went to ER on 05/16/21. She had XR with R sided consolidation. and A CT of the abdomen and pelvis from May 16, 2021 with IV contrast shows normallung bases, normal liver, pancreas, gallbladder, spleen. Left adrenal 2 cm nodule, normal kidneys, bladder, bowel, peritoneum. No enlarged lymph nodes. No abnormalities in the bones. She was admitted to the hospital and had CT chest next day which noted a large mass. Some dry irritating cough. She was discharged and f/u with dr. mccarty. She had a bronchoscopy on 05/30/[address] Mccarty. Found an endobronchial mass in the lateral segment of the right middle lobe. 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 Negative for TTF-1 and positive for P 40. She had pulmonary function studies in December 2020 with an FEV1 of 1.95 L in the right middle lobe only comprises 11% of the total lung capacity. She has not yet had PET/CT. had EBUS Dr. JOHNSON. Nodes all negative adrenal biopsy negative. PET/CT with disease localized, few nodes curious. 10/17/2021: Patient reports for post treatment follow up visit. 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 Towards the end of treatment she was diagnosed with C diff colitis treated first with oral Vancomycin and then Flagyl. Clinically, she is much improved. No further episodes of diarrhea. She appears non toxic. She is approximately 1 month out from treatment; she reports no significant or new issues other than dry, sometimes productive cough. Worse during the day; denies shortness of breath, sputum production, dysphagia, fever/chills, or hemoptysis. Plan to initiate maintenance Durvalumab as soon as insurance approves. She will need post treatment scan, as well. Will arrange for PET/CT scan in ~ 5 weeks with follow up thereafter. 11/09/21 she is feeling much better today, has not had diarrhea in 2 days. almost feels like she may be getting constipated she admits to not staying hydrated today and yesterday, so we encouraged her to push more fluids, which may help with her bowels as well she denies any other complaints, tolerating the fidaxomycin well energy is much improved and she is cooking again will get durvalumab today 11/29/21 she has some chest soreness, some cough. overall doing well. PET/CT with great outcome. 11/28/21 NO RESIDUAL RIGHT MIDDLE LOBE MASS OR PATHOLOGIC ADENOPATHY. SUBCUTANEOUS NODULE IN THE RIGHT LABIAL REGION, POSSIBLYA SEBACEOUS CYST. CLINICAL CORRELATION IS RECOMMENDED. on durvalumab x 1 month. will continue for 12 month. pooping is good. She does not have any more diarrhea. 01/16/2022: Melida is here for add on visit due to multiple issues prior to next cycle of maintenance Durvalumab. 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 The patient reports a rather complicated clinical course over the past several weeks. To briefly summarize, the patient reportedly had a fall at home on 11/14/2021. The patient's family reports that approximately 3 weeks after she fell; and ~ 2-3 days after last immunotherapy; she began having a multitude of complaints including headaches, dizziness, balance issues, trouble swallowing and progressive weakness in extremities x 4. The patient is markedly fatigue, reports she is not even able to bathe or dress herself; can no longer ambulate and essentially cannot do any regular ADL's that she was doing a few months ago.Of note, the patient is usually with robust performance status and this is clearly a deviation of her baseline. She reports worsening dyspnea/shortness of breath; hard to feel like she is getting adequate air. She also reports a severely dry mouth and has obvious unilateral ptosis of the left eye. - Summary of Therapies Summary of Therapies: Concurrent chemoradiation with Carboplatin/Paclitaxel: 08/08/2021-09/20/2021 Maintenance Durvalumab q2wks 10/26/21 and 11/09/2021 Switched to monthly (q 4 week) 1500 mg - 12/07/2021 Subjective/ROS - Narrative: As per the HPI, otherwise 10 point review of systems as highlighted above. 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 Nicotine dependence, cigarettes, in remission Pernicious anemia Primary insomnia - Surgical History Surgical History: Surgical History (Last Reviewed 11/14/21 @ 11:13 by Hilda Woody RN) History of appendectomy History of hernia repair History of hysterectomy History of left breast biopsy History of tonsillectomy - Family History Family History: Family History (Last Reviewed 10/13/21 @ 11:45 by Keely Coughlin LPN) Other Breast cancer Pancreatic cancer Prostate cancer - Social History Smoking Status: Never smoker Substance Use Type: None Home Medications & Allergies Allergies RADHA Inhibitors Allergy (Verified 01/16/22 14:42) Unknown Reaction erythromycin base Allergy (Verified 01/16/22 14:42) Unknown Reaction rivaroxaban [From Xarelto] Allergy (Verified 01/16/22 14:42) Unknown Reaction tiotropium [From Spiriva with HandiHaler] Allergy (Verified 01/16/22 14:42) Unknown Reaction Home Medications albuterol sulfate 90 mcg/actuation aerosol inhaler (ProAir HFA) 2 puff INHALATION Q4H PRN 06/07/21 [History Confirmed 01/16/22] amiodarone 200 mg tablet 200 mg PO DAILY 06/07/21 [History Confirmed 01/16/22] amlodipine 5 mg tablet 5 mg PO DAILY 06/07/21 [History Confirmed 01/16/22] fluticasone 250 mcg-salmeterol 50 mcg/dose blistr powdr for inhalation (Advair Diskus) 1 inh INHALATION Q12H 06/07/21 [History Confirmed 01/16/22] hydrochlorothiazide 25 mg tablet 25 mg PO DAILY 06/07/21 [History Confirmed 01/16/22] levothyroxine 112 mcg tablet 112 mcg PO DIRECTED 06/07/21 [History Confirmed 01/16/22] levothyroxine 125 mcg tablet 125 mcg PO QMWF 06/07/21 [History Confirmed 01/16/22] potassium chloride 20 mEq tablet,extended release 20 meq PO DAILY #30 tab 11/23/21 [Rx Confirmed 01/16/22] vancomycin 125 mg capsule 125 mg PO DIRECTED #98 cap 12/23/21 [Rx Confirmed 01/16/22] lorazepam 0.5 mg tablet 0.5 mg PO HS PRN 30 Days #60 tab 01/10/22 [Rx Confirmed 01/16/22] Objective - Resuscitation Status Resuscitation Status: Full Code - Height/Weight Height/Weight: Height 5 ft 5 in Weight 88.904 kg BSA for Today's Weight 2.04 - Vital Signs Vital Signs: 01/16/22 14:47 Pulse Rate [Left Brachial] 70 Respiratory Rate 16 Blood Pressure [Left Arm] 146/78 H 02 Sat by Pulse Oximetry 97 - Pain Generalized Right Pain Intensity: 4 Generalized Pain Intensity: 3 Right Neck Pain Intensity: 5 - Distress Screening Distress Screen Results: RN Distress Screening Start: 06/09/21 11:10 Freq: Status: Complete Protocol: Document 06/23/21 14:32 DB (Rec: 06/23/21 14:32 DB [id number]) Distress Screening Distress Score: 0 No worry/distress Distress Screening Total 0 RN Distress Screening Start: 06/09/21 11:42 Freq: Status: Active Protocol: Document 08/01/21 10:42 DB (Rec: 08/01/21 10:43 DB [id number]) Distress Screening Distress Score: 2 Physical Concerns Feeling tired or a lack of energy Emotional Concerns Feeling uncertain about the future Distress Screening Total 2 Physical Exam Narrative: ECOG PS:3 General : patient is alert but appears markedly fatigued and drawn; left eye ptosis. HEENT: oral mucosa is dry/pink; no lesions or exudate; no facial droop; no JVD or thyromegaly. Lymph: no cervical, supraclavicular, axillary adenopathy. Heart: regular rate and rhythm no murmurs rubs or gallops. Abdomen: soft nontender nondistended, no hepatosplenomegaly. Lungs: clear to auscultation bilaterally. No wheezes, rales, rhonchi. Extremities: no clubbing cyanosis. trace bilateral edema L greater than right; she has tenderness to palpation of lower extremities bilaterally. Neurological: decreased strength in extremities x 4; 2/4; essentially non weightbearing per patient; gait not observed; she is a wheelchair; which is significant change from baseline exam; left eye ptosis; no focal deficits - ECOG Performance Status ECOG Score: 3 Results - Labs Labs: Diagram of Most Recent CBC and CMP 12/21/21 11:00 12/21/21 11:00 Assessment and Plan (1) 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 Stage IIB negative EBUS, negative adrenal nodule biopsy Completed concurrent chemoradiation for her cancer carboplatin and paclitaxol jul through sep 2021. followed by maintenance durvalumab. Started maintenance durvalumab (received 2 doses - 2 weeks apart) 10 mg/kg dosing- given 10/26/2021 and 11/09/2021. PET/CT 11/2021 [facility]. -- therapy changed to monthly dosing (Q 4 weeks - 1500 mg) - received 1 dose on:12/07/2021 01/16/2022: The patient reports a rather complicated clinical course over the pastseveral weeks. To briefly summarize, the patient reportedly had a fall at home on 11/14/2021. The patient's family reports that approximately 3 weeks after shefell; and ~ 2-3 days after last immunotherapy on 12/07/2021; she began having a multitude of complaints including headaches, dizziness, balance issues, trouble swallowing and progressive weakness in extremities x 4. The patient is markedlyfatigue, reports she is not even able to bathe or dress herself; can no longer ambulate and essentially cannot do any regular ADL's that she was doing a few months ago. Compared to baseline, this is an obvious deviation from her baseline, rather robust Performance Status. She reports worsening dyspnea/shortness of breath; hard to feel like she is getting adequate air. She also reports a severely dry mouth and has obvious unilateral ptosis of the left eye. She saw her PCP, Dr. Espino approximately 1 week ago and he ordered imaging including brain MRI. Brain MRI was essentially negative; with no evidence of intracranial metastasis or other acute changes. Discussed with Dr. Christianson; who also speaks to patient. There is obvious concern for underlying immunotherapy related neurological toxicity. Dr. Christianson contacted neurology, Dr. Argueta who was able to assess the patient here in the outpatient oncology clinic; on initial exam there is nothing focal per say and the recommendation is for patient to be admitted to the hospital forfurther work up, supportive care, and initiation of high-dose steroids. The hospitalist team was contacted (Dr. Yee) and plan will be to admit patient under hospitalist service. Recommend: 1 gram IV Solu-Medrol today; followed by 1 mg/kg Prednisone orally daily thereafter. This was relayed to theprimary team and we appreciate both neurology and hospitalist assistance. Patient and her family are agreeable with this plan and all there questions wereanswered over this 45 minute visit with coordination of care involving hospital admission. (2) Generalized weakness See above. There has been marked deterioration in overall performance status over the past several weeks since initiation of maintenance immunotherapy with durvalumab. Admit to hospital for further work-up, underlying concern for immunotherapy related autoimmune toxicity. Administer 1 g IV Solu-Medrol today; followed by high-dose steroids. Prednisone1 mg/kilogram p.o. daily (3) Ptosis of eyelid, left See above. Patient to be admitted to [facility] inpatient with neurological consultation. Negative brain MRI on 01/13/2022. (4) Clostridium difficile infection Diagnosed during end of treatment course; initially refractory to oral Vancomycin; then changed to oral Flagyl. She has been treated approximately 3 times during treatment. She is back on Vancomycin presently; but reports improvement in symptoms. She does not report recurrent episodes of diarrhea or abdominal pain. - Time with Patient Time Spent with Patient (Follow Up Visit): 35 minutes Coordination of Care & Counseling Time: Greater than 50% of time spent with patient was for coordination of care (as documented) and [id number] counseling of patient and/or family. Dictated By: Vernell Singletary APRN DD/ 55 Signed By: <Electronically signed by BACILIO Singletary> 01/16/22 [address] [facility] Work Phone: [phone]) 868-650304-04-2022 Consult note Author Wilfrido Argueta [facility] January 16, 2022 5:16pm Note Date/Time January 16, 2022 5:16 pm [facility] [address] [place] [address] Neurology Consult Note Signed Patient: Melida Valerio MR#: [id number] : 1940 Acct:[id number] Age/Sex: 81 / F Adm Date: 2 Loc: 3T Room: [address] [place] [address] Type : ADM IN Attending Dr: Joseluis Yee MD Copies to: DO Joseluis Cool MD Benjamin Ball, DO~ HPI Consult Date: 01/16/22 Flat Folder: Wilfrido Argueta DO PMFSH Vaccinated for COVID-19?: Yes Medical History (Updated 01/16/22 @ 16:55 by Wilfrido Argueta DO) Adenomatous colon polyp Allergic rhinitis Autoimmune hypothyroidism Chronic venous insufficiency Dysuria-frequency syndrome Essential hypertension GERD (gastroesophageal reflux disease) History of left breast cancer lumpectomy, radiation treatment History of tobacco abuse Hyperlipidemia Iron deficiency anemia secondary to blood loss (chronic) snf (current) use of inhaled steroids Nicotine dependence, cigarettes, in remission Pernicious anemia Primary insomnia Surgical History History of appendectomy History of hernia repair History of hysterectomy History of left breast biopsy History of tonsillectomy Family History Other Breast cancer Pancreatic cancer Prostate cancer Social History Smoking Status: Never smoker Substance Use Type: None Meds Medications and Allergies Allergies RADHA Inhibitors Allergy (Verified 01/16/22 14:42) Unknown Reaction erythromycin base Allergy (Verified 01/16/22 14:42) Unknown Reaction rivaroxaban [From Xarelto] Allergy (Verified 01/16/22 14:42) Unknown Reaction tiotropium [From Spiriva with HandiHaler] Allergy (Verified 01/16/22 14:42) Unknown Reaction Home Medications albuterol sulfate 90 mcg/actuation aerosol inhaler (ProAir HFA) 2 puff INHALATION Q4H PRN 06/07/21 [History Confirmed 01/16/22] amiodarone 200 mg tablet 200 mg PO DAILY 06/07/21 [History Confirmed 01/16/22] amlodipine 5 mg tablet 5 mg PO DAILY 06/07/21 [History Confirmed 01/16/22] fluticasone 250 mcg-salmeterol 50 mcg/dose blistr powdr for inhalation (Advair Diskus) 1 inh INHALATION Q12H 06/07/21 [History Confirmed 01/16/22] hydrochlorothiazide 25 mg tablet 25 mg PO DAILY 06/07/21 [History Confirmed 01/16/22] levothyroxine 112 mcg tablet 112 mcg PO DIRECTED 06/07/21 [History Confirmed 01/16/22] levothyroxine 125 mcg tablet 125 mcg PO QMWF 06/07/21 [History Confirmed 01/16/22] omeprazole 10 mg capsule,delayed release 10 mg PO DAILY 08/26/21 [History Confirmed 01/16/22] fidaxomicin 200 mg tablet 200 mg PO BID #20 tab 11/03/21 [Rx Confirmed 01/16/22] potassium chloride 20 mEq tablet,extended release 20 meq PO DAILY #30 tab 11/23/21 [Rx Confirmed 01/16/22] vancomycin 125 mg capsule 125 mg PO DIRECTED #98 cap 12/23/21 [Rx Confirmed 01/16/22] lorazepam 0.5 mg tablet 0.5 mg PO HS PRN 30 Days #60 tab 01/10/22 [Rx Confirmed 01/16/22] Assessment/Plan (1) Diplopia: Assessment/Problem Details: SUBJECTIVE/HPI: Melida is here for her follow-up appointment with Dr. Christianson. Over the past several weeks she has become very weak. Generalized weakness. She especially feels it in her neck where she feels like her head will topple backwards. She has also developed left upper eyelid weakness. She is mostly looking at her right eye so has not noticed diplopia. There is concerned that her biologic therapy for cancer could be causing some autoimmune mediated weakness syndrome. She has noticed difficulty with swallowing as well, especially with liquids. EXAMINATION: Well-kempt. No distress. Seated in wheelchair. No deformities or trauma. Normal spinal curvature. Limbs seem well-perfused. No significant edema. Normal work of breathing. Visualized skin is generally intact and without lesions. Affect normal. Patient is alert. Attention normal. Speech is fluentand nondysarthric. Pupils are equal and seem fixed. Previous cataract removal bilaterally is apparent. Ocular motility is full but gaze is disconjugate. Shesubjectively reports no diplopia to the right and diplopia in central vision andto the left when both her eyelids are held open. Left upper eyelid ptosis, significant enough to cover pupillary aperture. Hearing is normal. Aside from the left upper eyelid ptosis, facial strength is otherwise normal. Muscle bulk and tone are normal. Very mild weakness globally. No tremors. Reflexes +1/4 in bilateral upper extremities and +2/4 bilateral patella. No pathologic reflexes. Light touch is normal. Vibratory sensation is diminished in feet. Noupper extremity limb ataxia. DATA REVIEW: MRI brain 01/11/22 with and without contrast appears overall unremarkable and thearteries are fairly well visualized and I do not see any obvious aneurysmal dilation but a dedicated study would better look at this. ASSESSMENT: 81 year old woman with right lung SCC. She has left upper eyelid ptosis and diplopia due to dysconjugate gaze in the setting of generalized fatigue and weakness. She has also noticed dysphagia, mostly to thin liquids. Symptoms not necessarily fatiguable. Onset several weeksago, though the diplopia was less apparent to her, probably because the left upper eyelid hangs low enough to cover the pupillary aperture on the left. Considerations include a third nerve palsy (microvascular seems most likely, butrule out compressive/aneurysmal) or neuromuscular junction disorder (myasthenia gravis or lambert eaton because of breast cancer or because of the durvalumab). 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 PLAN: We will assess response to high-dose intravenous steroids CTA head to rule out aneurysmal compression of cranial nerves Consider anti-P/Q-type voltage-gated calcium channel antibody testing Consider outpatient NCS/EMG Code(s): H53.2 - Diplopia Status: Acute (2) Ptosis of eyelid, left: Code(s): H02.402 - Unspecified ptosis of left eyelid Status: Acute Documented By: Wilfrido Argueta DO 01/16/22 [id number] Signed By: <Electronically signed by Wilfrido Argueta DO> 01/16/22 [address] [facility] Work Phone: [phone]) 748-330702-18-2022 Progress note Author Bertha Christianson [facility] December 02, 2021 8:15am Note Date/Time November 29, 2021 10:49am [facility] at [address] [address] Hem/Onc Follow Up Note - OP Signed Patient: Melida Valerio MR#: [id number] : 1940 Acct:[id number] Age/Sex: 81 / F Type: REG RCR Copies to: DO Hiral Teague DO~ Date of Service: 11/29/2021 Time of Service: 10:47 - Assessment & Plan (1) 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 Plan: 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 Stage IIB negative EBUS, negative adrenal nodule biopsy has port. Completed concurrent chemoradiation for her cancer carboplatin and paclitaxol oct through sep 2021. followed by maintenance durvalumab. Tolerating maint durvalumab well began in oct 2021. PET/CT 11/2021 [facility]. Neg MRI brain at dx. Additional testing on her tumor done at [facility] which included molecular testing for EGFR, PD-L1, ALK, MET, ROS etc. History of localized breast cancer. She got radiation, did not get chemotherapy and refused adjuvant endocrine therapy. Continues to get mammograms and have been negative for active disease. Extremely strong family history for breast cancer. We discussed the role of genetic testing further. She did not get genetic testing, as her sister had genetic testing and the patient has no biological children. 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 Not much in right foot. offered gabapentin 300mg tid at visit 11.1.21 Follow Up Instructions: change to durvalumab q4wks. to give on 12/07/21. ct c/a/p with contrast. f/u with me in 3 months after imaging. cbc, cmp, tsh, cea at durvalumab days change durvalumab to 1500mg every 4 wks. . - History of Present Illness Chief Complaint: pt here for 3 week visit, labs and imigaing to review. HPI: 81-year-old female referred from Dr. Mccarty whom I previously followed at [facility] for breast cancer. Past medical history includes hypertension, chronic venous insufficiency, gastroesophageal reflux disease, type 2 diabetes, quit smoking in 1999, pernicious anemia, hypothyroidism, iron deficiency anemia, paroxysmal atrial fibrillation, hyperlipidemia, chronic bronchitis.. She had a hysterectomy and nephrectomy in her 20s for endometriosis. Outpatient medications include ProAir, levothyroxine, hydrochlorothiazide, amlodipine, montelukast, amiodarone. DEXA scan from 2018 shows osteopenia in the hip and normal in the spine echocardiogram from May 2019 shows ejection fraction of greater than 55%, no significant wall motion abnormalities and mild diastolic dysfunction. Slightly elevated right-sided pressures. No significant valvular abnormalities. She does have a sister with breast cancer in her 40s, mother sister had breast cancer in her 70s, mother's other sister had breast cancer in her 70s, mother had breast cancer in her 50s. Melida has 2 adopted children. She was diagnosed with ER/WA positive HER-2 negative breast cancer in 2009 at a hospital in [place]. She got adjuvant radiotherapy following lumpectomy. She did not get chemotherapy and refused adjuvant tamoxifen and has been monitored since. CAT scan of the chest from January 2017 showed no evidence of disease. She followed up with mammograms regularly and they were all normal. She had some short of breath since December 2020. In late April she noted a slight right upper quadrant pain. Worse with deep breathing. She went to ER on 05/16/21. She had XR with R sided consolidation. and A CT of the abdomen and pelvis from May 16, 2021 with IV contrast shows normallung bases, normal liver, pancreas, gallbladder, spleen. Left adrenal 2 cm nodule, normal kidneys, bladder, bowel, peritoneum. No enlarged lymph nodes. No abnormalities in the bones. She was admitted to the hospital and had CT chest next day which noted a large mass. Some dry irritating cough. She was discharged and f/u with dr. mccarty. She had a bronchoscopy on 05/30/[address] Mccarty. Found an endobronchial mass in the lateral segment of the right middle lobe. 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 Negative for TTF-1 and positive for P 40. She had pulmonary function studies in December 2020 with an FEV1 of 1.95 L in the right middle lobe only comprises 11% of the total lung capacity. She has not yet had PET/CT. had EBUS Dr. JOHNSON. Nodes all negative adrenal biopsy negative. PET/CT with disease localized, few nodes curious. 10/17/2021: Patient reports for post treatment follow up visit. Of note, she completed concurrent chemoradiation with Carboplatin/Paclitaxel for Stage II squamous cell carcinoma of the right lung from 08/08/2021-09/20/2021. 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 Towards the end of treatment she was diagnosed with C diff colitis treated first with oral Vancomycin and then Flagyl. Clinically, she is much improved. No further episodes of diarrhea. She appears non toxic. She is approximately 1 month out from treatment; she reports no significant or new issues other than dry, sometimes productive cough. Worse during the day; denies shortness of breath, sputum production, dysphagia, fever/chills, or hemoptysis. Plan to initiate maintenance Durvalumab as soon as insurance approves. She will need post treatment scan, as well. Will arrange for PET/CT scan in ~ 5 weeks with follow up thereafter. 11/09/21 she is feeling much better today, has not had diarrhea in 2 days. almost feels like she may be getting constipated she admits to not staying hydrated today and yesterday, so we encouraged her to push more fluids, which may help with her bowels as well she denies any other complaints, tolerating the fidaxomycin well energy is much improved and she is cooking again will get durvalumab today 11/29/21 she has some chest soreness, some cough. overall doing well. PET/CT with great outcome. 11/28/21 NO RESIDUAL RIGHT MIDDLE LOBE MASS OR PATHOLOGIC ADENOPATHY. SUBCUTANEOUS NODULE IN THE RIGHT LABIAL REGION, POSSIBLYA SEBACEOUS CYST. CLINICAL CORRELATION IS RECOMMENDED. on durvalumab x 1 month. will continue for 12 month. pooping is good. She does not have any more diarrhea. - Physical Exam ECOG PS:1 General : patient is alert and oriented to person place and time, no acute distress. Neck: no JVD or thyromegaly. Lymph: no cervical, supraclavicular, axillary adenopathy. Heart: regular rate and rhythm no murmurs rubs or gallops. Abdomen: soft nontender nondistended, no hepatosplenomegaly. Lungs: clear to auscultation bilaterally. No wheezes, rales, rhonchi. Extremities: no clubbing cyanosis. trace bilateral edema L greater than right. - Time with Patient Coordination of Care & Counseling Time: Greater than 50% of time spent with patient was for coordination of care (as documented) and [id number] counseling of patient and/or family. [facility] - Medical History Medical History: Medical History (Last Reviewed 11/14/21 @ 11:13 by Hilda Woody RN) Adenomatous colon polyp Allergic rhinitis Autoimmune hypothyroidism Chronic venous insufficiency Dysuria-frequency syndrome Essential hypertension GERD (gastroesophageal reflux disease) History of left breast cancer lumpectomy, radiation treatment History of tobacco abuse Hyperlipidemia Iron deficiency anemia secondary to blood loss (chronic) snf (current) use of inhaled steroids Nicotine dependence, cigarettes, in remission Pernicious anemia Primary insomnia - Surgical History Surgical History: Surgical History (Last Reviewed 11/14/21 @ 11:13 by Hilda Woody RN) History of appendectomy History of hernia repair History of hysterectomy History of left breast biopsy History of tonsillectomy - Family History Family History: Family History (Last Reviewed 10/13/21 @ 11:45 by Keely Coughlin LPN) Other Breast cancer Pancreatic cancer Prostate cancer - Social History Smoking Status: Never smoker Substance Use Type: None Additional Data - Additional Objective Data Height/Weight: Height 5 ft 5 in Weight 91.217 kg BSA for Today's Weight 2.04 Vital Signs: 11/29/21 10:17 Temperature 98.1 F Pulse Rate [Left Brachial] 75 Respiratory Rate 18 Blood Pressure [Left Arm] 154/67 H 02 Sat by Pulse Oximetry 97 Distress Screening: RN Distress Screening Start: 06/09/21 11:10 Freq: Status: Complete Protocol: Document 06/23/21 14:32 DB (Rec: 06/23/21 14:32 DB [id number]) Distress Screening Distress Score: 0 No worry/distress Distress Screening Total 0 RN Distress Screening Start: 06/09/21 11:42 Freq: Status: Active Protocol: Document 08/01/21 10:42 DB (Rec: 08/01/21 10:43 DB [id number]) Distress Screening Distress Score: 2 Physical Concerns Feeling tired or a lack of energy Emotional Concerns Feeling uncertain about the future Distress Screening Total 2 - Lab Results Diagram of Most Recent CBC and CMP 11/22/21 10:33 11/22/21 10:33 Labs - Last 7 Days 11/28/21 08:13: POC Glucose 97, POC Glucose Comment Glu2: cleaned meter 11/22/21 10:33: PHA Creatinine Clear 53.94, Sodium 139, Potassium 3.2 L, Chloride 104, Carbon Dioxide 24.7, BUN 18, Creatinine 0.93, Est GFR ( Amer) > 60, Est GFR (Non-Af Amer) 58, Glucose 145 H, Calcium 8.5, Total Bilirubin 0.6, AST 28, ALT 21, Alkaline Phosphatase 77, Total Protein 6.1, Albumin 3.2, Globulin 2.9, Albumin/Globulin Ratio 1.1 11/22/21 10:33: Corrected WBC 4.2, Uncorrected WBC Count 4.2 L, RBC 3.51 L, Hgb 11.9, Hct 34.6, MCV 98.5, MCH 33.9, MCHC 34.4, RDW 16.3 H, Plt Count 214, MPV 6.9, Neut % (Auto) 59.7, Lymph % (Auto) 22.0, Bowie % (Auto) 13.3, Eos % (Auto) 3.4, Baso % (Auto) 1.6, Neut # (Auto) 2.5, Lymph # (Auto) 0.9 L, Bowie # (Auto) 0.6, Eos # (Auto) 0.1, Baso # (Auto) 0.1, Nucleated RBC % (auto) 0.1 11/22/21 10:33: Free T4 1.46 H, TSH 3rd Generation 3.63 - Home Medications and Allergies Allergies/Adverse Reactions: Allergies RADHA Inhibitors Allergy (Verified 11/29/21 10:15) Unknown Reaction erythromycin base Allergy (Verified 11/29/21 10:15) Unknown Reaction rivaroxaban [From Xarelto] Allergy (Verified 11/29/21 10:15) Unknown Reaction tiotropium [From Spiriva with HandiHaler] Allergy (Verified 11/29/21 10:15) Unknown Reaction Home Medications: Home Medications albuterol sulfate 90 mcg/actuation aerosol inhaler (ProAir HFA) 2 puff INHALATION Q4H PRN 06/07/21 [History Confirmed 11/29/21] amiodarone 200 mg tablet 200 mg PO DAILY 06/07/21 [History Confirmed 11/29/21] amlodipine 5 mg tablet 5 mg PO DAILY 06/07/21 [History Confirmed 11/29/21] fluticasone 250 mcg-salmeterol 50 mcg/dose blistr powdr for inhalation (Advair Diskus) 1 inh INHALATION Q12H 06/07/21 [History Confirmed 11/29/21] hydrochlorothiazide 25 mg tablet 25 mg PO DAILY 06/07/21 [History Confirmed 11/29/21] levothyroxine 112 mcg tablet 112 mcg PO DIRECTED 06/07/21 [History Confirmed 11/29/21] levothyroxine 125 mcg tablet 125 mcg PO QMWF 06/07/21 [History Confirmed 11/29/21] omeprazole 10 mg capsule,delayed release 10 mg PO DAILY 08/26/21 [History Confirmed 11/29/21] fidaxomicin 200 mg tablet 200 mg PO BID #20 tab 11/03/21 [Rx Confirmed 11/29/21] lorazepam 0.5 mg tablet 0.5 mg PO HS PRN 30 Days #60 tab 11/09/21 [Rx Confirmed 11/29/21] potassium chloride 20 mEq tablet,extended release 20 meq PO DAILY #30 tab 11/23/21 [Rx Confirmed 11/29/21] Dictated By: Bertha Christianson II, DO DD/ 1047 Signed By: <Electronically signed by Bertha Christianson II, DO> 12/02/21 0815 [facility] Work Phone: [phone] 197-220002-18-2022 Progress note Author Bertha Christianson [facility] December 02, 2021 8:14am Note Date/Time November 29, 2021 10:52am [facility] [place] [address] Hem/Onc Follow Up Note - OP Signed with Addenda Patient: Melida Valerio MR#: [id number] : 1940 Acct:[id number] Age/Sex: 81 / F Type: REG RCR Copies to: DO Hiral Teague DO~ ADDENDUM1 THIS NOTE IS ERROR> PLEASE SEE OTHER NOTE FROM SAME DAY. Addendum Dictated By: Bertha Christianson II, DO Addendum Signed By: 12/02/21813 Addendum Cosigned By: DD/ TD/TT: 12/02/21 Date of Service: 11/29/2021 Time of Service: 10:51 - Assessment & Plan (1) 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 Follow Up Instructions: ct c/a/p with contrast. f/u with me in 3 months after imaging. cbc, cmp, tsh, cea at durvalumab days change durvalumab to 1500mg every 4 wks. . - History of Present Illness Chief Complaint: pt here for 3 week visit, labs and imigaing to review. - Time with Patient Coordination of Care & Counseling Time: Greater than 50% of time spent with patient was for coordination of care (as documented) and [id number] counseling of patient and/or family. 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 Nicotine dependence, cigarettes, in remission Pernicious anemia Primary insomnia - Surgical History Surgical History: Surgical History (Last Reviewed 11/14/21 @ 11:13 by Hilda Woody RN) History of appendectomy History of hernia repair History of hysterectomy History of left breast biopsy History of tonsillectomy - Family History Family History: Family History (Last Reviewed 10/13/21 @ 11:45 by Keely Coughlin LPN) Other Breast cancer Pancreatic cancer Prostate cancer - Social History Smoking Status: Never smoker Substance Use Type: None Additional Data - Additional Objective Data Height/Weight: Height 5 ft 5 in Weight 91.217 kg BSA for Today's Weight 2.04 Vital Signs: 11/29/21 10:17 Temperature 98.1 F Pulse Rate [Left Brachial] 75 Respiratory Rate 18 Blood Pressure [Left Arm] 154/67 H 02 Sat by Pulse Oximetry 97 Distress Screening: RN Distress Screening Start: 06/09/21 11:10 Freq: Status: Complete Protocol: Document 06/23/21 14:32 DB (Rec: 06/23/21 14:32 DB [email or web address]) Distress Screening Distress Score: 0 No worry/distress Distress Screening Total 0 RN Distress Screening Start: 06/09/21 11:42 Freq: Status: Active Protocol: Document 08/01/21 10:42 DB (Rec: 08/01/21 10:43 DB [email or web address]) Distress Screening Distress Score: 2 Physical Concerns Feeling tired or a lack of energy Emotional Concerns Feeling uncertain about the future Distress Screening Total 2 - Lab Results Diagram of Most Recent CBC and CMP 11/22/21 10:33 11/22/21 10:33 Labs - Last 7 Days 11/28/21 08:13: POC Glucose 97, POC Glucose Comment Glu2: cleaned meter 11/22/21 10:33: PHA Creatinine Clear 53.94, Sodium 139, Potassium 3.2 L, Chloride 104, Carbon Dioxide 24.7, BUN 18, Creatinine 0.93, Est GFR ( Amer) > 60, Est GFR (Non-Af Amer) 58, Glucose 145 H, Calcium 8.5, Total Bilirubin 0.6, AST 28, ALT 21, Alkaline Phosphatase 77, Total Protein 6.1, Albumin 3.2, Globulin 2.9, Albumin/Globulin Ratio 1.1 11/22/21 10:33: Corrected WBC 4.2, Uncorrected WBC Count 4.2 L, RBC 3.51 L, Hgb 11.9, Hct 34.6, MCV 98.5, MCH 33.9, MCHC 34.4, RDW 16.3 H, Plt Count 214, MPV 6.9, Neut % (Auto) 59.7, Lymph % (Auto) 22.0, Bowie % (Auto) 13.3, Eos % (Auto) 3.4, Baso % (Auto) 1.6, Neut # (Auto) 2.5, Lymph # (Auto) 0.9 L, Bowie # (Auto) 0.6, Eos # (Auto) 0.1, Baso # (Auto) 0.1, Nucleated RBC % (auto) 0.1 11/22/21 10:33: Free T4 1.46 H, TSH 3rd Generation 3.63 - Home Medications and Allergies Allergies/Adverse Reactions: Allergies RADHA Inhibitors Allergy (Verified 11/29/21 10:15) Unknown Reaction erythromycin base Allergy (Verified 11/29/21 10:15) Unknown Reaction rivaroxaban [From Xarelto] Allergy (Verified 11/29/21 10:15) Unknown Reaction tiotropium [From Spiriva with HandiHaler] Allergy (Verified 11/29/21 10:15) Unknown Reaction Home Medications: Home Medications albuterol sulfate 90 mcg/actuation aerosol inhaler (ProAir HFA) 2 puff INHALATION Q4H PRN 06/07/21 [History Confirmed 11/29/21] amiodarone 200 mg tablet 200 mg PO DAILY 06/07/21 [History Confirmed 11/29/21] amlodipine 5 mg tablet 5 mg PO DAILY 06/07/21 [History Confirmed 11/29/21] fluticasone 250 mcg-salmeterol 50 mcg/dose blistr powdr for inhalation (Advair Diskus) 1 inh INHALATION Q12H 06/07/21 [History Confirmed 11/29/21] hydrochlorothiazide 25 mg tablet 25 mg PO DAILY 06/07/21 [History Confirmed 11/29/21] levothyroxine 112 mcg tablet 112 mcg PO DIRECTED 06/07/21 [History Confirmed 11/29/21] levothyroxine 125 mcg tablet 125 mcg PO QMWF 06/07/21 [History Confirmed 11/29/21] omeprazole 10 mg capsule,delayed release 10 mg PO DAILY 08/26/21 [History Confirmed 11/29/21] fidaxomicin 200 mg tablet 200 mg PO BID #20 tab 11/03/21 [Rx Confirmed 11/29/21] lorazepam 0.5 mg tablet 0.5 mg PO HS PRN 30 Days #60 tab 11/09/21 [Rx Confirmed 11/29/21] potassium chloride 20 mEq tablet,extended release 20 meq PO DAILY #30 tab 11/23/21 [Rx Confirmed 11/29/21] Dictated By: Bertha Christianson II, DO DD/ 1051 Signed By: <Electronically signed by Bertha Christianson II, DO> 11/29/21 1052 [facility] Work Phone: [phone]) 596-784401-26-2022 Progress note Author Gardenia Carlisle [facility] November 09, 2021 10:01am Note Date/Time November 09, 2021 9 :49am [facility] at [address] [address] Hem/Onc Follow Up Note - OP Signed Patient: Melida Valerio MR#: [id number] : 1940 Acct:[id number] Age/Sex: 81 / F Type: REG RCR Copies to: Wong Espino,DO Hiral Mccarty, DO Bertha Christianson, II, DO~ Date of Service: 11/09/2021 Time of Service: 09:44 - Assessment & Plan (1) 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 Plan: 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 Stage IIB negative EBUS, negative adrenal nodule biopsy has port. getting concurrent chemoradiation for her cancer. followed by maintenance durvalumab. Neg MRI brain. Additional testing on her tumor done at [facility] which included molecular testing for EGFR, PD-L1, ALK, MET, ROS etc. Extensive discussion with the patient and she would rather forgo surgical evaluation as she is not likely to agree. She understands that resection would be better than chemoradiation for fdc outcomes. c1d1 carbo + taxol on 08/08/21. c1d8 on 08/15/21 c1d15 planned for 08/22/21 tentatively. Will HOLD taxol d/t toxicity but plan to give carbo alone depending on how she feels day of treatment completed treatment course on 09/20/21 History of localized breast cancer. She got radiation, did not get chemotherapy and refused adjuvant endocrine therapy. Continues to get mammograms and have been negative for active disease. Extremely strong family history for breast cancer. We discussed the role of genetic testing further. She did not get genetic testing, as her sister had genetic testing and the patient has no biological children. 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 Not much in right foot. offered gabapentin 300mg tid at visit 11.11.04 Maintenance Durvalumab every 2 weeks started 10/26/21 - she is tolerating treatment well. Based on previous plan with Dr. Christianson, we will change to once monthly Durvalumab. - plan for post treatment restaging PET on 11/28/21 (this will be roughly 8-9 weeks after completion of radiation therapy). Follow Up Instructions: durvalumab today change durvalumab to monthly after today's dose PET as scheduled on 11/28, follow-up with Dr. Sharma 11/29 - History of Present Illness Chief Complaint: Follow-up prior to second dose of Durvalumab today HPI: 81-year-old female referred from Dr. Mccarty whom I previously followed at [facility] for breast cancer. Past medical history includes hypertension, chronic venous insufficiency, gastroesophageal reflux disease, type 2 diabetes, quit smoking in 1999, pernicious anemia, hypothyroidism, iron deficiency anemia, paroxysmal atrial fibrillation, hyperlipidemia, chronic bronchitis.. She had a hysterectomy and nephrectomy in her 20s for endometriosis. Outpatient medications include ProAir, levothyroxine, hydrochlorothiazide, amlodipine, montelukast, amiodarone. DEXA scan from 2018 shows osteopenia in the hip and normal in the spine echocardiogram from May 2019 shows ejection fraction of greater than 55%, no significant wall motion abnormalities and mild diastolic dysfunction. Slightly elevated right-sided pressures. No significant valvular abnormalities. She does have a sister with breast cancer in her 40s, mother sister had breast cancer in her 70s, mother's other sister had breast cancer in her 70s, mother had breast cancer in her 50s. Melida has 2 adopted children. She was diagnosed with ER/WA positive HER-2 negative breast cancer in 2009 at a hospital in [place]. She got adjuvant radiotherapy following lumpectomy. She did not get chemotherapy and refused adjuvant tamoxifen and has been monitored since. CAT scan of the chest from January 2017 showed no evidence of disease. She followed up with mammograms regularly and they were all normal. She had some short of breath since December 2020. In late April she noted a slight right upper quadrant pain. Worse with deep breathing. She went to ER on 05/16/21. She had XR with R sided consolidation. and A CT of the abdomen and pelvis from May 16, 2021 with IV contrast shows normallung bases, normal liver, pancreas, gallbladder, spleen. Left adrenal 2 cm nodule, normal kidneys, bladder, bowel, peritoneum. No enlarged lymph nodes. No abnormalities in the bones. She was admitted to the hospital and had CT chest next day which noted a large mass. Some dry irritating cough. She was discharged and f/u with dr. mccarty. She had a bronchoscopy on 05/30/[address] Mccarty. Found an endobronchial mass in the lateral segment of the right middle lobe. 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 Negative for TTF-1 and positive for P 40. She had pulmonary function studies in December 2020 with an FEV1 of 1.95 L in the right middle lobe only comprises 11% of the total lung capacity. She has not yet had PET/CT. had EBUS Dr. JOHNSON. Nodes all negative adrenal biopsy negative. PET/CT with disease localized, few nodes curious. 10/17/2021: Patient reports for post treatment follow up visit. 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 Towards the end of treatment she was diagnosed with C diff colitis treated first with oral Vancomycin and then Flagyl. Clinically, she is much improved. No further episodes of diarrhea. She appears non toxic. She is approximately 1 month out from treatment; she reports no significant or new issues other than dry, sometimes productive cough. Worse during the day; denies shortness of breath, sputum production, dysphagia, fever/chills, or hemoptysis. Plan to initiate maintenance Durvalumab as soon as insurance approves. She will need post treatment scan, as well. Will arrange for PET/CT scan in ~ 5 weeks with follow up thereafter. 11/09/21 she is feeling much better today, has not had diarrhea in 2 days. almost feels like she may be getting constipated she admits to not staying hydrated today and yesterday, so we encouraged her to push more fluids, which may help with her bowels as well she denies any other complaints, tolerating the fidaxomycin well energy is much improved and she is cooking again will get durvalumab today Summary of Therapies: Concurrent chemoradiation with Carboplatin/Paclitaxel: 08/08/2021-09/20/2021 Maintenance Durvalumab q2wks 10/26/21- - Physical Exam ECOG PS:1 General : patient is alert and oriented to person place and time, no acute distress. Neck: no JVD or thyromegaly. Lymph: no cervical, supraclavicular, axillary adenopathy. Heart: regular rate and rhythm no murmurs rubs or gallops. Abdomen: soft nontender nondistended, no hepatosplenomegaly. Lungs: clear to auscultation bilaterally. No wheezes, rales, rhonchi. Extremities: no clubbing cyanosis. trace bilateral edema L greater than right. - Time with Patient Coordination of Care & Counseling Time: Greater than 50% of time spent with patient was for coordination of care (as documented) and [id number] counseling of patient and/or family. [facility] - Medical History Medical History: Medical History (Last Reviewed 10/13/21 @ 11:45 by Keely Coughlin LPN) Adenomatous colon polyp Allergic rhinitis Autoimmune hypothyroidism Chronic venous insufficiency Dysuria-frequency syndrome Essential hypertension GERD (gastroesophageal reflux disease) History of left breast cancer lumpectomy, radiation treatment History of tobacco abuse Hyperlipidemia Iron deficiency anemia secondary to blood loss (chronic) snf (current) use of inhaled steroids Nicotine dependence, cigarettes, in remission Pernicious anemia Primary insomnia - Surgical History Surgical History: Surgical History (Last Reviewed 10/13/21 @ 11:45 by Keely Coughlin LPN) History of appendectomy History of hernia repair History of hysterectomy History of left breast biopsy History of tonsillectomy - Family History Family History: Family History (Last Reviewed 10/13/21 @ 11:45 by Keely Coughlin LPN) Other Breast cancer Pancreatic cancer Prostate cancer - Social History Smoking Status: Former smoker Substance Use Type: None Additional Data - Additional Objective Data Height/Weight: Height 5 ft 5 in Weight 91.535 kg BSA for Today's Weight 2.02 Vital Signs: 11/09/21 09:25 Temperature 97.6 F Pulse Rate [Left Brachial] 78 Respiratory Rate 18 Blood Pressure [Left Arm] 129/65 02 Sat by Pulse Oximetry 97 Distress Screening: RN Distress Screening Start: 06/09/21 11:10 Freq: Status: Complete Protocol: Document 06/23/21 14:32 DB (Rec: 06/23/21 14:32 DB [email or web address]) Distress Screening Distress Score: 0 No worry/distress Distress Screening Total 0 RN Distress Screening Start: 06/09/21 11:42 Freq: Status: Active Protocol: Document 08/01/21 10:42 DB (Rec: 08/01/21 10:43 DB [email or web address]) Distress Screening Distress Score: 2 Physical Concerns Feeling tired or a lack of energy Emotional Concerns Feeling uncertain about the future Distress Screening Total 2 - Lab Results Diagram of Most Recent CBC and CMP 11/08/21 15:11 11/08/21 15:11 Labs - Last 7 Days 11/08/21 15:11: PHA Creatinine Clear 49.54, Sodium 136, Potassium 3.4 L, Chloride 100, Carbon Dioxide 24.9, BUN 14, Creatinine 1.00, Est GFR ( Amer) > 60, Est GFR (Non-Af Amer) 53, Glucose 124 H, Calcium 8.5, Total Bilirubin 0.5, AST 25, ALT 17, Alkaline Phosphatase 74, Total Protein 6.0 L, Albumin 3.1 L, Globulin 2.9, Albumin/Globulin Ratio 1.1 11/08/21 15:11: Corrected WBC 6.3, Uncorrected WBC Count 6.3, RBC 3.65, Hgb 12.1, Hct 35.2, MCV 96.4, MCH 33.1, MCHC 34.3, RDW 18.4 H, Plt Count 295, MPV 6.5, Neut % (Auto) 70.9, Lymph % (Auto) 16.6, Bowie % (Auto) 10.2, Eos % (Auto) 1.5, Baso % (Auto) 0.8, Neut # (Auto) 4.5, Lymph # (Auto) 1.0, Bowie # (Auto) 0.6, Eos # (Auto) 0.1, Baso # (Auto) 0.1, Nucleated RBC % (auto) 0.1 11/08/21 15:11: Free T4 1.44 H, TSH 3rd Generation 1.40 11/02/21 13:00: C. difficile Tox B Gene Positive A* - Home Medications and Allergies Allergies/Adverse Reactions: Allergies RADHA Inhibitors Allergy (Verified 11/09/21 09:29) Unknown Reaction erythromycin base Allergy (Verified 11/09/21 09:29) Unknown Reaction rivaroxaban [From Xarelto] Allergy (Verified 11/09/21 09:29) Unknown Reaction tiotropium [From Spiriva with HandiHaler] Allergy (Verified 11/09/21 09:29) Unknown Reaction Home Medications: Home Medications albuterol sulfate 90 mcg/actuation aerosol inhaler (ProAir HFA) 2 puff INHALATION Q4H PRN 06/07/21 [History Confirmed 11/09/21] amiodarone 200 mg tablet 200 mg PO DAILY 06/07/21 [History Confirmed 11/09/21] amlodipine 5 mg tablet 5 mg PO DAILY 06/07/21 [History Confirmed 11/09/21] fluticasone 250 mcg-salmeterol 50 mcg/dose blistr powdr for inhalation (Advair Diskus) 1 inh INHALATION Q12H 06/07/21 [History Confirmed 11/09/21] hydrochlorothiazide 25 mg tablet 25 mg PO DAILY 06/07/21 [History Confirmed 11/09/21] levothyroxine 112 mcg tablet 112 mcg PO DIRECTED 06/07/21 [History Confirmed 11/09/21] levothyroxine 125 mcg tablet 125 mcg PO QMWF 06/07/21 [History Confirmed 11/09/21] gabapentin 300 mg capsule 300 mg PO TID #90 cap 08/15/21 [Rx Confirmed 11/09/21] omeprazole 10 mg capsule,delayed release 10 mg PO DAILY 08/26/21 [History Confirmed 11/09/21] metronidazole 500 mg tablet 500 mg PO TID 14 Days #42 tab 09/27/21 [Rx Confirmed 11/09/21] hydrocodone 5 mg-acetaminophen 325 mg tablet 1 tab PO Q6H PRN 5 Days #20 tab 10/13/21 [Rx Confirmed 11/09/21] fidaxomicin 200 mg tablet 200 mg PO BID #20 tab 11/03/21 [Rx Confirmed 11/09/21] lorazepam 0.5 mg tablet 0.5 mg PO HS PRN 30 Days #60 tab 11/09/21 [Rx] Dictated By: Gardenia Carlisle APRN DD/ Signed By: <Electronically signed by BACILIO Carlisle> 11/09/21 [facility] Work Phone: [phone]) 618-737401-03-2022 Progress note Author Jaime Solorio [facility] October 17, 2021 3:29pm Note Date/Time October 17, 2021 12 :34pm [facility] [place] [address] Rad Onc Follow Up Note - OP Signed Patient: Melida aVlerio MR#: [id number] : 1940 Acct:[id number] Age/Sex: 81 / F Type: REG RCR Copies to: DO Joan Teague MD Nathan Samsa, DO Timothy J Adamowicz, MAY, DO~ Subjective - Service Date/Time Date: 10/17/21 Time: 12:34 - Diagnosis Squamous cell carcinoma of the right middle lobe of the lung, clinical stage T2N1M0, stage IIb and prior history of breast cancer in 2008 treated with lumpectomy and radiation. - Chief Complaint I still have some cough - History of Present Illness 81-year-old female who is a ex-smoker with history of smoking 40 to 50pack years had prior diagnosis of left breast carcinoma in 2008 which was treated with lumpectomy and radiation therapy in [place], [place]. She was followed up here by Dr. Christianson at the [facility] outpatient clinic for many years and she was discharged few years ago from his clinic. She now had complaints of shortness of breath starting 2 to 3 months ago and in early May, she had complaints of right chest wall pain. She went to the ER at [facility] and a chest CT scan showed right midlung consolidation. She received antibiotic therapy but the right middle lobe mass did not resolve andsubsequently, she had bronchoscopy by Dr. Mccarty on 05/30/2021 and he found an endobronchial mass in the lateral segment of the right middle lobe. Biopsy confirmed on small cell carcinoma consistent with squamous cell carcinoma, moderate to poorly differentiated. The tumor was negative for TTF-1 and positive for p40. Patient's pulmonary function test in December 2020 showed a FEV1of 1.95 L in the right middle lobe only comprise 11% of the total lung capacity.She also had a 2 cm left adrenal nodule on the CT scan which could represent an metastases. She had a PET CT scan which again showed increased FDG uptake in the right middle lobe extending to the right hilar area. Her EBUS and subcarinal node biopsies were reported negative. Patient was started on chemoradiation therapy treatments for 6 weeks and her treatment course was completed 3 weeks ago. She returned today for her scheduled first post radiotherapy follow-up without any major new complaints. She still has some cough and was advised take [id number] medications. She has no headaches, nausea, neck lumps, sore throat or difficulty in swallowing, skin irritation within the area of radiation treatments, hemoptysis, abdominal discomfort, urinary or bowel problems, vaginal bleeding or discharge, leg swelling, motor orsensory changes. I've closely reviewed the patient's oncologic, medical, surgical, social, and family history. Changes noted above. I also reviewed the patient's medicationsvia reconciliation, as per the nursing record. - Review of Systems ROS: As per HPI. Objective Height 5 ft 5 in Weight 89.993 kg Temp 98 F 10/17/21 11:55 Pulse 76 10/17/21 11:55 Resp 20 10/17/21 11:55 BP 154/74 H 10/17/21 11:55 Pulse Ox 98 10/17/21 11:55 Pain: 0/10 Distress Screen Results: RN Distress Screening Start: 06/09/21 11:10 Freq: Status: Complete Protocol: Document 06/23/21 14:32 DB (Rec: 06/23/21 14:32 DB [email or web address]) Distress Screening Distress Score: 0 No worry/distress Distress Screening Total 0 RN Distress Screening Start: 06/09/21 11:42 Freq: Status: Active Protocol: Document 08/01/21 10:42 DB (Rec: 08/01/21 10:43 DB [email or web address]) Distress Screening Distress Score: 2 Physical Concerns Feeling tired or a lack of energy Emotional Concerns Feeling uncertain about the future Distress Screening Total 2 Karnofsky Performance Scale: 90%: Can perform normal activity, minor signs of disease Physical Exam: On physical examination today, she is an elderly, well oriented femalewho does not appear to be in any acute distress. HEENT examination revealed no cranial neuropathy. No palpable cervical or supra clavicle lymphadenopathy. Her breasts were not examined today but patient states that she had mammograms within the last year and they were reported negative. Local examination of the recently radiated chest area did not reveal any skin changes. Her lungs are clear to auscultation. Cardiac examination is unremarkable. Abdomen is soft non-tender and there is no palpable mass or organomegaly. Pelvic and rectal examination not done. She has no leg edema. She remains neurologically stable including her motor, sensory and cerebellar functions. Results CBC & Chem 7: 10/17/21 11:10 10/17/21 11:10 Carcinoembryonic Ag 2.9 ng/mL (0.0-3.0) 10/17/21 11:10 Impression: Squamous cell carcinoma of the right middle lobe of the lung, clinical stage T2N1M0, stage IIb and prior history of breast cancer in 2008 treated with lumpectomy and radiation. Assessment & Plan (1) 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 Plan: This 81-year-old female with prior history of left breast carcinoma treated with lumpectomy and radiation therapy in 2008 has no evidence of residual or recurrent disease in the breast. She had recent diagnosis of moderately to poorly differentiated squamous cell carcinoma of the middle lobe right lung, clinical stage T2 N1 M0 and underwent chemoradiotherapy treatments for 6 weeks with completion of her treatment 3 weeks ago. She returned today for scheduled follow-up and has no major new complaints. There is no significant residual side effects related to her recent radiation therapy treatments. Patient also seen by medical oncology today and will be started on immunotherapy. She will follow up regularly with Dr. Christianson and I should plan to see her back in 6 months for next scheduled radiation oncology follow-up. Total Time Spent with Patient: Less than 30 minutes I spent 15 minutes [id number] time with this patient and more than 50% of timeallotted to patient education, answering questions, and coordinating care. N.B: Voice-recognition software was used in the creation of this note. Efforts were made to detect and correct typographical and/or grammatical errors;please excuse them should you find any. Dictated By: Jaime Solorio MD DD/ [id number] Signed By: <Electronically signed by Jaime Solorio MD> 10/17/21 [facility] Work Phone: 1(422) 129-210501-03-2022 Progress note Author Vernell Singletary [facility] October 17, 2021 1:26pm Note Date/Time October 17, 2021 1: 05pm [facility] at [address] [address] Hem/Onc Follow Up Note - OP Signed Patient: Melida Valerio MR#: [id number] : 1940 Acct:[id number] Age/Sex: 81 / F Type: REG RCR Copies to: DO Hiral Teague DO~ Subjective Date/Time of Service: Date of Service: 10/17/2021 Time of Service: 12:51 Chief Complaint: Patient is here for a 3 week follow up with labs today for review. Patient had port placed 10/13/21. No concerns voiced. HPI: 81-year-old female referred from Dr. Mccarty whom I previously followed at [facility] for breast cancer. Past medical history includes hypertension, chronic venous insufficiency, gastroesophageal reflux disease, type 2 diabetes, quit smoking in 1999, pernicious anemia, hypothyroidism, iron deficiency anemia, paroxysmal atrial fibrillation, hyperlipidemia, chronic bronchitis.. She had a hysterectomy and nephrectomy in her 20s for endometriosis. Outpatient medications include ProAir, levothyroxine, hydrochlorothiazide, amlodipine, montelukast, amiodarone. DEXA scan from 2018 shows osteopenia in the hip and normal in the spine echocardiogram from May 2019 shows ejection fraction of greater than 55%, no significant wall motion abnormalities and mild diastolic dysfunction. Slightly elevated right-sided pressures. No significant valvular abnormalities. She does have a sister with breast cancer in her 40s, mother sister had breast cancer in her 70s, mother's other sister had breast cancer in her 70s, mother had breast cancer in her 50s. Melida has 2 adopted children. She was diagnosed with ER/WA positive HER-2 negative breast cancer in 2009 at a hospital in [place]. She got adjuvant radiotherapy following lumpectomy. She did not get chemotherapy and refused adjuvant tamoxifen and has been monitored since. CAT scan of the chest from January 2017 showed no evidence of disease. She followed up with mammograms regularly and they were all normal. She had some short of breath since December 2020. In late April she noted a slight right upper quadrant pain. Worse with deep breathing. She went to ER on 05/16/21. She had XR with R sided consolidation. and A CT of the abdomen and pelvis from May 16, 2021 with IV contrast shows normallung bases, normal liver, pancreas, gallbladder, spleen. Left adrenal 2 cm nodule, normal kidneys, bladder, bowel, peritoneum. No enlarged lymph nodes. No abnormalities in the bones. She was admitted to the hospital and had CT chest next day which noted a large mass. Some dry irritating cough. She was discharged and f/u with dr. mccarty. She had a bronchoscopy on 05/30/[address] Mccarty. Found an endobronchial mass in the lateral segment of the right middle lobe. 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 Negative for TTF-1 and positive for P 40. She had pulmonary function studies in December 2020 with an FEV1 of 1.95 L in the right middle lobe only comprises 11% of the total lung capacity. She has not yet had PET/CT. had EBUS Dr. JOHNSON. Nodes all negative adrenal biopsy negative. PET/CT with disease localized, few nodes curious. 10/17/2021: Patient reports for post treatment follow up visit. 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 Towards the end of treatment she was diagnosed with C diff colitis treated first with oral Vancomycin and then Flagyl. Clinically, she is much improved. No further episodes of diarrhea. She appears non toxic. She is approximately 1 month out from treatment; she reports no significant or new issues other than dry, sometimes productive cough. Worse during the day; denies shortness of breath, sputum production, dysphagia, fever/chills, or hemoptysis. Plan to initiate maintenance Durvalumab as soon as insurance approves. She will need post treatment scan, as well. Will arrange for PET/CT scan in ~ 5 weeks with follow up thereafter. 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 Nicotine dependence, cigarettes, in remission Pernicious anemia Primary insomnia - Surgical History Surgical History: Surgical History (Last Reviewed 10/13/21 @ 11:45 by Keely Coughlin LPN) History of appendectomy History of hernia repair History of hysterectomy History of left breast biopsy History of tonsillectomy - Family History Family History: Family History (Last Reviewed 10/13/21 @ 11:45 by Keely Coughlin LPN) Other Breast cancer Pancreatic cancer Prostate cancer - Social History Smoking Status: Former smoker Substance Use Type: None Home Medications & Allergies Allergies RADHA Inhibitors Allergy (Verified 10/17/21 11:54) Unknown Reaction erythromycin base Allergy (Verified 10/17/21 11:54) Unknown Reaction rivaroxaban [From Xarelto] Allergy (Verified 10/17/21 11:54) Unknown Reaction tiotropium [From Spiriva with HandiHaler] Allergy (Verified 10/17/21 11:54) Unknown Reaction Home Medications albuterol sulfate 90 mcg/actuation aerosol inhaler (ProAir HFA) 2 puff INHALATION Q4H PRN 06/07/21 [History Confirmed 10/17/21] amiodarone 200 mg tablet 200 mg PO DAILY 06/07/21 [History Confirmed 10/17/21] amlodipine 5 mg tablet 5 mg PO DAILY 06/07/21 [History Confirmed 10/17/21] fluticasone 250 mcg-salmeterol 50 mcg/dose blistr powdr for inhalation (Advair Diskus) 1 inh INHALATION Q12H 06/07/21 [History Confirmed 10/17/21] hydrochlorothiazide 25 mg tablet 25 mg PO DAILY 06/07/21 [History Confirmed 10/17/21] levothyroxine 112 mcg tablet 112 mcg PO DIRECTED 06/07/21 [History Confirmed 10/17/21] levothyroxine 125 mcg tablet 125 mcg PO QMWF 06/07/21 [History Confirmed 10/17/21] gabapentin 300 mg capsule 300 mg PO TID #90 cap 08/15/21 [Rx Confirmed 10/17/21] omeprazole 10 mg capsule,delayed release 10 mg PO DAILY 08/26/21 [History Confirmed 10/17/21] metronidazole 500 mg tablet 500 mg PO TID 14 Days #42 tab 09/27/21 [Rx Confirmed 10/17/21] hydrocodone 5 mg-acetaminophen 325 mg tablet 1 tab PO Q6H PRN 5 Days #20 tab 10/13/21 [Rx Confirmed 10/17/21] lorazepam 0.5 mg tablet (Ativan) 0.5 mg PO BID PRN 10/13/21 [History Confirmed 10/17/21] Objective - Height/Weight Height/Weight: Height 5 ft 5 in Weight 89.993 kg BSA for Today's Weight 2.03 - Vital Signs Vital Signs: 10/17/21 11:55 Temperature 98 F Pulse Rate [Left Brachial] 76 Respiratory Rate 20 Blood Pressure [Left Arm] 154/74 H 02 Sat by Pulse Oximetry 98 - Pain Generalized Right Pain Intensity: 4 Generalized Pain Intensity: 3 - Distress Screening Distress Screen Results: RN Distress Screening Start: 06/09/21 11:10 Freq: Status: Complete Protocol: Document 06/23/21 14:32 DB (Rec: 06/23/21 14:32 DB [email or web address]) Distress Screening Distress Score: 0 No worry/distress Distress Screening Total 0 RN Distress Screening Start: 06/09/21 11:42 Freq: Status: Active Protocol: Document 08/01/21 10:42 DB (Rec: 08/01/21 10:43 DB [email or web address]) Distress Screening Distress Score: 2 Physical Concerns Feeling tired or a lack of energy Emotional Concerns Feeling uncertain about the future Distress Screening Total 2 Physical Exam Narrative: ECOG PS:1 General : patient is alert and oriented to person place and time, no acute distress. Neck: no JVD or thyromegaly. Lymph: no cervical, supraclavicular, axillary adenopathy. Heart: regular rate and rhythm no murmurs rubs or gallops. Abdomen: soft nontender nondistended, no hepatosplenomegaly. Lungs: clear to auscultation bilaterally. No wheezes, rales, rhonchi. Extremities: no clubbing cyanosis. trace bilateral edema L greater than right. - ECOG Performance Status ECOG Score: 1 Results - Labs Labs: Diagram of Most Recent CBC and CMP 10/17/21 11:10 10/17/21 11:10 Labs - Last 7 Days 10/17/21 11:10: Carcinoembryonic Ag 2.9 10/17/21 11:10: PHA Creatinine Clear 55.64, Sodium 138, Potassium 3.5, Chloride 102, Carbon Dioxide 25.3, BUN 14, Creatinine 0.89, Est GFR ( Amer) > 60, Est GFR (Non-Af Amer) > 60, Glucose 131 H, Calcium 8.7, Total Bilirubin 0.6, AST30, ALT 18, Alkaline Phosphatase 71, Total Protein 6.5, Albumin 3.1 L, Globulin 3.4, Albumin/Globulin Ratio 0.9 10/17/21 11:10: Corrected WBC 3.7 L, Uncorrected WBC Count 3.7 L, RBC 3.79, Hgb 12.4, Hct 36.1, MCV 95.3, MCH 32.7, MCHC 34.3, RDW 22.7 H, Plt Count 275, MPV 6.3, Neut % (Auto) 57.1, Lymph % (Auto) 26.9, Bowie % (Auto) 13.6, Eos % (Auto) 1.5, Baso % (Auto) 0.9, Neut # (Auto) 2.1, Lymph # (Auto) 1.0, Bowie # (Auto) 0.5, Eos # (Auto) 0.1, Baso # (Auto) 0.0, Nucleated RBC % (auto) 0.0 Assessment and Plan (1) Non-small cell lung cancer (NSCLC) 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 getting concurrent chemoradiation for her cancer. followed by maintenance durvalumab. Neg MRI brain. 1.) Extensive discussion with the patient and she would rather forgo surgical evaluation as she is not likely to agree. She understands that resection would be better than chemoradiation for fdc outcomes; consented to concurrent chemoradiation; which commenced: 08/08/2021. c1d1 carbo + taxol on 08/08/21. c1d8 on 08/15/21 c1d15: 08/22/21 Carboplatin alone until completion of therapy on 09/20/2021. Additional testing on her tumor from [facility] EGFR, PD-L1, ALK, MET, ROS etc. 10/17/2020: Completed treatment course: 09/20/2021 - discussed plan with Dr. Christianson; clinically patient is stable; no lingering chemotherapy toxicities; labs are stable. - plan to start maintenance Durvalumab as soon as approved by insurance; will start with Q2 week therapy; patient to see Dr. Christianson prior to Cycle 2 of therapy and if well tolerated will change to once monthly Durvalumab. - plan for post treatment restaging scan in ~ 5 weeks (early to mid November 2021)- (this will be roughly 8-9 weeks after completion of radiation therapy). - follow up to review scans, as well. 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 Not much in right foot. offered gabapentin 300mg tid at visit 11.1.21- declined (3) History of breast cancer (4) Clostridium difficile infection Diagnosed during end of treatment course; initially refractory to oral Vancomycin; then changed to oral Flagyl. Symptoms resolved; no further issues. Will follow clinically. - Time with Patient Time Spent with Patient (Follow Up Visit): 25 minutes Coordination of Care & Counseling Time: Greater than 50% of time spent with patient was for coordination of care (as documented) and [id number] counseling of patient and/or family. Dictated By: Vernell Singletary APRN DD/ 1251 Signed By: <Electronically signed by BACILIO Singletary> 10/17/21 [facility] Work Phone: [phone]) 823-105612-13-2021 Progress note Author Bertha Christianson [facility] September 26, 2021 10:47am Note Date/Time September 26, 2021 10:38am [facility] at [address] [address] Hem/Onc Follow Up Note - OP Signed Patient: Melida Valerio MR#: [id number] : 1940 Acct:[id number] Age/Sex: 81 / F Type: REG RCR Copies to: DO Hiral Teague DO~ Date of Service: 09/26/2021 Time of Service: 10:36 - Assessment & Plan (1) Non-small cell lung cancer (NSCLC) Plan: 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 getting concurrent chemoradiation for her cancer. followed by maintenance durvalumab. Neg MRI brain. Extensive discussion with the patient and she would rather forgo surgical evaluation as she is not likely to agree. She understands that resection would be better than chemoradiation for fdc outcomes. c1d1 carbo + taxol on 08/08/21. c1d8 on 08/15/21 c1d15 planned for 08/22/21 tentatively. Will HOLD taxol d/t toxicity but plan to give carbo alone depending on how she feels day of treatment We will send additional testing on her tumor from [facility] which will include molecular testing for EGFR, PD-L1, ALK, MET, ROS etc. History of localized breast cancer. She got radiation, did not get chemotherapy and refused adjuvant endocrine therapy. Continues to get mammograms and have been negative for active disease. Extremely strong family history for breast cancer. We will discussed the role of genetic testing further. She did not get genetic testing, as her sister had genetic testing and the patient has no biological children. 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 Not much in right foot. offered gabapentin 300mg tid at visit 08.15.21 Follow Up Instructions: send cdiff today. give iv fluids today. f/u with me in 3 wks. cbc, cmp, cea. probably get durvalumab that day as well. she is to get port replaced. ua today. - History of Present Illness Chief Complaint: Patient is here for a 3 week follow up with labs today for review, prior to treatment today. Patient states It has not been a good week. Patient finished radiation 09/21/21. She reports having chills, back pain/cramps, dizziness, nausea, and not much of an appetite. No other concerns voiced at this time. HPI: 81-year-old female referred from Dr. Mccarty whom I previously followed at [facility] for breast cancer. Past medical history includes hypertension, chronic venous insufficiency, gastroesophageal reflux disease, type 2 diabetes, quit smoking in 1999, pernicious anemia, hypothyroidism, iron deficiency anemia, paroxysmal atrial fibrillation, hyperlipidemia, chronic bronchitis.. She had a hysterectomy and nephrectomy in her 20s for endometriosis. Outpatient medications include ProAir, levothyroxine, hydrochlorothiazide, amlodipine, montelukast, amiodarone. DEXA scan from 2018 shows osteopenia in the hip and normal in the spine echocardiogram from May 2019 shows ejection fraction of greater than 55%, no significant wall motion abnormalities and mild diastolic dysfunction. Slightly elevated right-sided pressures. No significant valvular abnormalities. She does have a sister with breast cancer in her 40s, mother sister had breast cancer in her 70s, mother's other sister had breast cancer in her 70s, mother had breast cancer in her 50s. Melida has 2 adopted children. She was diagnosed with ER/WA positive HER-2 negative breast cancer in 2009 at a hospital in [place]. She got adjuvant radiotherapy following lumpectomy. She did not get chemotherapy and refused adjuvant tamoxifen and has been monitored since. CAT scan of the chest from January 2017 showed no evidence of disease. She followed up with mammograms regularly and they were all normal. She had some short of breath since December 2020. In late April she noted a slight right upper quadrant pain. Worse with deep breathing. She went to ER on 05/16/21. She had XR with R sided consolidation. and A CT of the abdomen and pelvis from May 16, 2021 with IV contrast shows normallung bases, normal liver, pancreas, gallbladder, spleen. Left adrenal 2 cm nodule, normal kidneys, bladder, bowel, peritoneum. No enlarged lymph nodes. No abnormalities in the bones. She was admitted to the hospital and had CT chest next day which noted a large mass. Some dry irritating cough. She was discharged and f/u with dr. mccarty. She had a bronchoscopy on 05/30/[address] Mccarty. Found an endobronchial mass in the lateral segment of the right middle lobe. 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 Negative for TTF-1 and positive for P 40. She had pulmonary function studies in December 2020 with an FEV1 of 1.95 L in the right middle lobe only comprises 11% of the total lung capacity. She has not yet had PET/CT. had EBUS Dr. JOHNSON. Nodes all negative adrenal biopsy negative. PET/CT with disease localized, few nodes curious. 07/29/21 she describes a bandlike discomfort just below her ribcage on the right side. she says feels like there is something in there moving around. She feels like she is going to faint sometimes. She describes this a scary pain feeling. Her shortness of breath has progressed marginally. She had a port placed nearly 2 wks ago. Become very sore for the last day or two. They had some problem drawing blood from this. in dermott it was usable. She had ER visit for UTI and got IV abx and now on oral abx. she gets very short of breath after a half of flight of stairs. 08/15/21 started chemoradiation with weekly carbo taxol on 08/08. week 2 chemo today. she did well with chemo, constipation was her main issue. she is now on a stool softener. 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 It makes it hard to wear shoes. does not describe as a burning. socks hurt her sheets. she has had thiscomplaint for many years. 08/19/21 feels pretty bad today, is tired and weak. has headaches, dizziness, nausea, no appetite and body aches she has weakness to all extremities, shayan BUEs. has some watery stools continues with neuropathy in L foot u/a negative for UTI, chest XR negative as well. started antbx 2 days ago she only took gabapentin x 1 day. didnt like how it make her feel. 08/29/21 more short of breath recently. very unsteady on her feet. diarrhea is still present although improved. She continues on flagyl 4x per daylast dose tomorrow. not much nausea. no falls. using a walking stick. got carbo alone last week. she has 3 wks radiation left. 09/05/21 she is doing ok. 2 wks radiation left. she feels better than last week. She got fluids on sunday. She continues to have issues with dehydration. diarrhea is finally improved. actually with constipation now. she believes tolerating carboplatin well. She feels 75% back to normal. Still complains of tired and very weak. She states she feels like arms and legs are noodles. She feels like she has a hard time getting aout of a chair without arms. She needs wheelchair for distances sometimes, othertimes she can walk. 09/26/21 she is doing poorly this week. She has a lot of abdominal and flank cramping. stooling with black and dark sludge. Not taking an iron pill. She is also getting sweats and chills a lot. when she eats she gets sick to her stomach. she eats only a few spoonfuls of food at a time now. sherbert and yogurt works best. radiation done last sunday. got carbo alone for most of the treatment. she is tired all the time. - Physical Exam ECOG PS:1 General : patient is alert and oriented to person place and time, no acute distress. Neck: no JVD or thyromegaly. Lymph: no cervical, supraclavicular, axillary adenopathy. Heart: regular rate and rhythm no murmurs rubs or gallops. Abdomen: soft nontender nondistended, no hepatosplenomegaly. Lungs: clear to auscultation bilaterally. No wheezes, rales, rhonchi. Extremities: no clubbing cyanosis. trace bilateral edema L greater than right. - Time with Patient Coordination of Care & Counseling Time: Greater than 50% of time spent with patient was for coordination of care (as documented) and [id number] counseling of patient and/or family. 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 Nicotine dependence, cigarettes, in remission Pernicious anemia Primary insomnia - Surgical History Surgical History: Surgical History (Last Reviewed 07/18/21 @ 09:55 by Airam Brantley RN) History of appendectomy History of hernia repair History of hysterectomy History of left breast biopsy History of tonsillectomy - Family History Family History: Family History (Last Reviewed 06/27/21 @ 11:16 by Joana Li LPN) Other Breast cancer Pancreatic cancer Prostate cancer - Social History Smoking Status: Former smoker Substance Use Type: None Additional Data - Additional Objective Data Height/Weight: Height 5 ft 5 in Weight 89.267 kg BSA for Today's Weight 2.03 Vital Signs: 09/26/21 10:17 Temperature 98 F Pulse Rate [Left Brachial] 79 Respiratory Rate 20 Blood Pressure [Left Arm] 140/76 02 Sat by Pulse Oximetry 100 Distress Screening: RN Distress Screening Start: 06/09/21 11:10 Freq: Status: Complete Protocol: Document 06/23/21 14:32 DB (Rec: 06/23/21 14:32 DB [email or web address]) Distress Screening Distress Score: 0 No worry/distress Distress Screening Total 0 RN Distress Screening Start: 06/09/21 11:42 Freq: Status: Active Protocol: Document 08/01/21 10:42 DB (Rec: 08/01/21 10:43 DB [id number]) Distress Screening Distress Score: 2 Physical Concerns Feeling tired or a lack of energy Emotional Concerns Feeling uncertain about the future Distress Screening Total 2 - Lab Results Diagram of Most Recent CBC and CMP 09/26/21 10:05 Labs - Last 7 Days 09/26/21 10:05: Corrected WBC 4.2, Uncorrected WBC Count 4.2 L, RBC 3.72, Hgb 11.7 L, Hct 34.4, MCV 92.6, MCH 31.6, MCHC 34.1, RDW 21.7 H, Plt Count 246, MPV 6.0 L, Neut % (Auto) 74.2, Lymph % (Auto) 11.5, Bowie % (Auto) 12.5, Eos % (Auto)1.3, Baso % (Auto) 0.5, Neut # (Auto) 3.1, Lymph # (Auto) 0.5 L, Bowie # (Auto) 0.5, Eos # (Auto) 0.1, Baso # (Auto) 0.0, Nucleated RBC % (auto) 0.0 09/19/21 11:30: Carcinoembryonic Ag 2.5 09/19/21 11:30: PHA Creatinine Clear 55.93, Sodium 137, Potassium 4.1, Chloride 99, Carbon Dioxide 28.8, BUN 12, Creatinine 0.89, Est GFR ( Amer) > 60, Est GFR (Non-Af Amer) > 60, Glucose 83, Calcium 8.2, Total Bilirubin 0.5, AST 27, ALT 19, Alkaline Phosphatase 82, Total Protein 5.6 L, Albumin 3.0 L, Globulin 2.6, Albumin/Globulin Ratio 1.2, TSH 3rd Generation 4.55 09/19/21 11:30: Corrected WBC 3.8, Uncorrected WBC Count 3.8 L, RBC 3.98, Hgb 12.2, Hct 36.5, MCV 91.7, MCH 30.6, MCHC 33.4, RDW 20.9 H, Plt Count 193, MPV 6.8, Neut % (Auto) 80.7, Lymph % (Auto) 11.6, Bowie % (Auto) 6.4, Eos % (Auto) 0.9, Baso % (Auto) 0.4, Neut # (Auto) 3.1, Lymph # (Auto) 0.4 L, Bowie # (Auto) 0.2, Eos # (Auto) 0.0, Baso # (Auto) 0.0, Nucleated RBC % (auto) 0.2 - Home Medications and Allergies Allergies/Adverse Reactions: Allergies RADHA Inhibitors Allergy (Verified 09/26/21 10:17) Unknown Reaction erythromycin base Allergy (Verified 09/26/21 10:17) Unknown Reaction rivaroxaban [From Xarelto] Allergy (Verified 09/26/21 10:17) Unknown Reaction tiotropium [From Spiriva with HandiHaler] Allergy (Verified 09/26/21 10:17) Unknown Reaction Home Medications: Home Medications albuterol sulfate 90 mcg/actuation aerosol inhaler (ProAir HFA) 2 puff INHALATION Q4H PRN 06/07/21 [History Confirmed 09/26/21] amiodarone 200 mg tablet 200 mg PO DAILY 06/07/21 [History Confirmed 09/26/21] amlodipine 5 mg tablet 5 mg PO DAILY 06/07/21 [History Confirmed 09/26/21] fluticasone 250 mcg-salmeterol 50 mcg/dose blistr powdr for inhalation (Advair Diskus) 1 inh INHALATION Q12H 06/07/21 [History Confirmed 09/26/21] hydrochlorothiazide 25 mg tablet 25 mg PO DAILY 06/07/21 [History Confirmed 09/26/21] levothyroxine 112 mcg tablet 112 mcg PO DIRECTED 06/07/21 [History Confirmed 09/26/21] levothyroxine 125 mcg tablet 125 mcg PO QMWF 06/07/21 [History Confirmed 09/26/21] montelukast 10 mg tablet 10 mg PO DAILY 06/07/21 [History Confirmed 09/26/21] ondansetron HCl 8 mg tablet 8 mg PO Q8H PRN #30 tab 06/17/21 [Rx Confirmed 09/26/21] gabapentin 300 mg capsule 300 mg PO TID #90 cap 08/15/21 [Rx Confirmed 09/26/21] levofloxacin 750 mg tablet 750 mg PO DAILY 08/19/21 [History Confirmed 09/26/21] Magic Mouth Wash 1 tsp PO Q6H 08/26/21 [History Confirmed 09/26/21] omeprazole 10 mg capsule,delayed release 10 mg PO DAILY 08/26/21 [History Confirmed 09/26/21] lorazepam 0.5 mg tablet 0.5 mg PO BID PRN 30 Days #60 tab 09/05/21 [Rx Confirmed 09/26/21] hyaluronic jrwrqz-vlrdftcvr-xyno vera extract topical gel (RadiaPlexRx) 1 applicTOPICAL TID 09/13/21 [History Confirmed 09/26/21] Dictated By: Bertha Christianson II, DO DD/ 1036 Signed By: <Electronically signed by Bertha Christianson II, DO> 09/26/21 1047 [facility] Work Phone: 1(709) 458-573211-22-2021 Progress note Author Bertha Christianson [facility] September 05, 2021 10:23am Note Date/Time September 05, 2021 10:12am [facility] [place] [address] Hem/Onc Follow Up Note - OP Signed Patient: Melida Valerio MR#: [id number] : 1940 Acct:[id number] Age/Sex: 81 / F Type: REG RCR Copies to: DO Hiral Teague DO~ Date of Service: 09/05/2021 Time of Service: 10:09 - Assessment & Plan (1) Non-small cell lung cancer (NSCLC) Plan: 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 getting concurrent chemoradiation for her cancer. followed by maintenance durvalumab. Neg MRI brain. Extensive discussion with the patient and she would rather forgo surgical evaluation as she is not likely to agree. She understands that resection would be better than chemoradiation for fdc outcomes. c1d1 carbo + taxol on 08/08/21. c1d8 on 08/15/21 c1d15 planned for 08/22/21 tentatively. Will HOLD taxol d/t toxicity but plan to give carbo alone depending on how she feels day of treatment We will send additional testing on her tumor from [facility] which will include molecular testing for EGFR, PD-L1, ALK, MET, ROS etc. History of localized breast cancer. She got radiation, did not get chemotherapy and refused adjuvant endocrine therapy. Continues to get mammograms and have been negative for active disease. Extremely strong family history for breast cancer. We will discussed the role of genetic testing further. She did not get genetic testing, as her sister had genetic testing and the patient has no biological children. 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 Not much in right foot. offered gabapentin 300mg tid at visit 08.15.21 Follow Up Instructions: carbo alone today and next week. f/u and repeat in 3 wks if she is still getting radiation. cbc, cmp, tsh, cea at f/u. - History of Present Illness Chief Complaint: Patient is here for a one week follow up prior to treatment today, with labs 09/02/21 and chest x-ray 08/29/2021 for review. No concerns voiced at this time. HPI: 81-year-old female referred from Dr. Mccarty whom I previously followed at [facility] for breast cancer. Past medical history includes hypertension, chronic venous insufficiency, gastroesophageal reflux disease, type2 diabetes, quit smoking in 1999, pernicious anemia, hypothyroidism, iron deficiency anemia, paroxysmal atrial fibrillation, hyperlipidemia, chronic bronchitis.. She had a hysterectomy and nephrectomy in her 20s for endometriosis. Outpatient medications include ProAir, levothyroxine, hydrochlorothiazide, amlodipine, montelukast, amiodarone. DEXA scan from 2018 shows osteopenia in the hip and normal in the spine echocardiogram from May 2019 shows ejection fraction of greater than 55%, no significant wall motion abnormalities and mild diastolic dysfunction. Slightly elevated right-sided pressures. No significant valvular abnormalities. She does have a sister with breast cancer in her 40s, mother sister had breast cancer in her 70s, mother's other sister had breast cancer in her 70s, mother had breast cancer in her 50s. Melida has 2 adopted children. She was diagnosed with ER/WA positive HER-2 negative breast cancer in 2009 at a hospital in [place]. She got adjuvant radiotherapy following lumpectomy. She did not get chemotherapy and refused adjuvant tamoxifen and has been monitored since. CAT scan of the chest from January 2017 showed no evidence of disease. She followed up with mammograms regularly and they were all normal. She had some short of breath since December 2020. In late April she noted a slight right upper quadrant pain. Worse with deep breathing. She went to ER on 05/16/21. She had XR with R sided consolidation. and A CT of the abdomen and pelvis from May 16, 2021 with IV contrast shows normallung bases, normal liver, pancreas, gallbladder, spleen. Left adrenal 2 cm nodule, normal kidneys, bladder, bowel, peritoneum. No enlarged lymph nodes. No abnormalities in the bones. She was admitted to the hospital and had CT chest next day which noted a large mass. Some dry irritating cough. She was discharged and f/u with dr. mccarty. She had a bronchoscopy on 05/30/[address] Mcacrty. Found an endobronchial mass in the lateral segment of the right middle lobe. 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 Negative for TTF-1 and positive for P 40. She had pulmonary function studies in December 2020 with an FEV1 of 1.95 L in the right middle lobe only comprises 11% of the total lung capacity. She has not yet had PET/CT. had EBUS Dr. JOHNSON. Nodes all negative adrenal biopsy negative. PET/CT with disease localized, few nodes curious. 07/29/21 she describes a bandlike discomfort just below her ribcage on the right side. she says feels like there is something in there moving around. She feels like she is going to faint sometimes. She describes this a scary pain feeling. Her shortness of breath has progressed marginally. She had a port placed nearly 2 wks ago. Become very sore for the last day or two. They had some problem drawing blood from this. in dermott it was usable. She had ER visit for UTI and got IV abx and now on oral abx. she gets very short of breath after a half of flight of stairs. 08/15/21 started chemoradiation with weekly carbo taxol on 08/08. week 2 chemo today. she did well with chemo, constipation was her main issue. she is now on a stool softener. 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 It makes it hard to wear shoes. does not describe as a burning. socks hurt her sheets. she has had thiscomplaint for many years. 08/19/21 feels pretty bad today, is tired and weak. has headaches, dizziness, nausea, no appetite and body aches she has weakness to all extremities, shayan BUEs. has some watery stools continues with neuropathy in L foot u/a negative for UTI, chest XR negative as well. started antbx 2 days ago she only took gabapentin x 1 day. didnt like how it make her feel. 08/29/21 more short of breath recently. very unsteady on her feet. diarrhea is still present although improved. She continues on flagyl 4x per daylast dose tomorrow. not much nausea. no falls. using a walking stick. got carbo alone last week. she has 3 wks radiation left. 09/05/21 she is doing ok. 2 wks radiation left. she feels better than last week. She got fluids on sunday. She continues to have issues with dehydration. diarrhea is finally improved. actually with constipation now. she believes tolerating carboplatin well. She feels 75% back to normal. Still complains of tired and very weak. She states she feels like arms and legs are noodles. She feels like she has a hard time getting aout of a chair without arms. She needs wheelchair for distances sometimes, othertimes she can walk. - Physical Exam ECOG PS:1 General : patient is alert and oriented to person place and time, no acute distress. Neck: no JVD or thyromegaly. Lymph: no cervical, supraclavicular, axillary adenopathy. Heart: regular rate and rhythm no murmurs rubs or gallops. Abdomen: soft nontender nondistended, no hepatosplenomegaly. Lungs: clear to auscultation bilaterally. No wheezes, rales, rhonchi. Extremities: no clubbing cyanosis. trace bilateral edema L greater than right. - Time with Patient Coordination of Care & Counseling Time: Greater than 50% of time spent with patient was for coordination of care (as documented) and [id number] counseling of patient and/or family. [facility] - Medical History Medical History: Medical History (Last Reviewed 07/18/21 @ 09:55 by Airam Brantley, RN) Adenomatous colon polyp Allergic rhinitis Autoimmune hypothyroidism Chronic venous insufficiency Dysuria-frequency syndrome Essential hypertension GERD (gastroesophageal reflux disease) History of left breast cancer lumpectomy, radiation treatment History of tobacco abuse Hyperlipidemia Iron deficiency anemia secondary to blood loss (chronic) snf (current) use of inhaled steroids Nicotine dependence, cigarettes, in remission Pernicious anemia Primary insomnia - Surgical History Surgical History: Surgical History (Last Reviewed 07/18/21 @ 09:55 by Airam Brantley RN) History of appendectomy History of hernia repair History of hysterectomy History of left breast biopsy History of tonsillectomy - Family History Family History: Family History (Last Reviewed 06/27/21 @ 11:16 by Joana Li LPN) Other Breast cancer Pancreatic cancer Prostate cancer - Social History Smoking Status: Former smoker Substance Use Type: None Additional Data - Additional Objective Data Height/Weight: Height 5 ft 5 in Weight 91.671 kg BSA for Today's Weight 2.03 Vital Signs: 09/05/21 09:55 Temperature 98 F Pulse Rate [Left Brachial] 80 Respiratory Rate 20 Blood Pressure [Left Arm] 137/69 02 Sat by Pulse Oximetry 97 Distress Screening: RN Distress Screening Start: 06/09/21 11:10 Freq: Status: Complete Protocol: Document 06/23/21 14:32 DB (Rec: 06/23/21 14:32 DB [id number]) Distress Screening Distress Score: 0 No worry/distress Distress Screening Total 0 RN Distress Screening Start: 06/09/21 11:42 Freq: Status: Active Protocol: Document 08/01/21 10:42 DB (Rec: 08/01/21 10:43 DB [id number]) Distress Screening Distress Score: 2 Physical Concerns Feeling tired or a lack of energy Emotional Concerns Feeling uncertain about the future Distress Screening Total 2 - Lab Results Diagram of Most Recent CBC and CMP 09/02/21 14:20 09/02/21 14:20 Labs - Last 7 Days 09/02/21 14:20: PHA Creatinine Clear 58.81, Sodium 138, Potassium 3.9, Chloride 101, Carbon Dioxide 26.9, BUN 8 L, Creatinine 0.85, Est GFR ( Amer) > 60,Est GFR (Non-Af Amer) > 60, Glucose 119 H, Calcium 8.0 L, Total Bilirubin 0.3, AST 26, ALT 18, Alkaline Phosphatase 69, Total Protein 5.8 L, Albumin 2.9 L, Globulin 2.9, Albumin/Globulin Ratio 1.0 09/02/21 14:20: Corrected WBC 4.9, Uncorrected WBC Count 4.9, RBC 4.07, Hgb 12.0, Hct 35.8, MCV 87.8, MCH 29.5, MCHC 33.6, RDW 17.3 H, Plt Count 289, MPV 6.3, Neut % (Auto) 79.2, Lymph % (Auto) 8.7, Bowie % (Auto) 10.8, Eos % (Auto) 0.3, Baso % (Auto) 1.0, Neut # (Auto) 3.9, Lymph # (Auto) 0.4 L, Bowie # (Auto) 0.5, Eos # (Auto) 0.0, Baso # (Auto) 0.1, Nucleated RBC % (auto) 0.1 08/29/21 12:00: Urine Color Yellow, Urine Appearance Clear, Urine pH 7.5, Ur Specific Anderson 1.007, Urine Protein Negative, Urine Glucose (UA) Normal, UrineKetones Negative, Urine Occult Blood Negative, Urine Nitrite Negative, Urine Bilirubin Negative, Urine Urobilinogen Normal, Ur Leukocyte Esterase Negative - Home Medications and Allergies Allergies/Adverse Reactions: Allergies RADHA Inhibitors Allergy (Verified 09/05/21 09:55) Unknown Reaction erythromycin base Allergy (Verified 09/05/21 09:55) Unknown Reaction rivaroxaban [From Xarelto] Allergy (Verified 09/05/21 09:55) Unknown Reaction tiotropium [From Spiriva with HandiHaler] Allergy (Verified 09/05/21 09:55) Unknown Reaction Home Medications: Home Medications albuterol sulfate 90 mcg/actuation aerosol inhaler (ProAir HFA) 2 puff INHALATION Q4H PRN 06/07/21 [History Confirmed 09/05/21] amiodarone 200 mg tablet 200 mg PO DAILY 06/07/21 [History Confirmed 09/05/21] amlodipine 5 mg tablet 5 mg PO DAILY 06/07/21 [History Confirmed 09/05/21] fluticasone 250 mcg-salmeterol 50 mcg/dose blistr powdr for inhalation (Advair Diskus) 1 inh INHALATION Q12H 06/07/21 [History Confirmed 09/05/21] hydrochlorothiazide 25 mg tablet 25 mg PO DAILY 06/07/21 [History Confirmed 09/05/21] levothyroxine 112 mcg tablet 112 mcg PO DIRECTED 06/07/21 [History Confirmed 09/05/21] levothyroxine 125 mcg tablet 125 mcg PO QMWF 06/07/21 [History Confirmed 09/05/21] montelukast 10 mg tablet 10 mg PO DAILY 06/07/21 [History Confirmed 09/05/21] ondansetron HCl 8 mg tablet 8 mg PO Q8H PRN #30 tab 06/17/21 [Rx Confirmed 09/05/21] lorazepam 0.5 mg tablet 0.5 mg PO BID PRN 30 Days #60 tab 07/18/21 [Rx Confirmed 09/05/21] gabapentin 300 mg capsule 300 mg PO TID #90 cap 08/15/21 [Rx Confirmed 09/05/21] levofloxacin 750 mg tablet 750 mg PO DAILY 08/19/21 [History Confirmed 09/05/21] Magic Mouth Wash 1 tsp PO Q6H 08/26/21 [History Confirmed 09/05/21] omeprazole 10 mg capsule,delayed release 10 mg PO DAILY 08/26/21 [History Confirmed 09/05/21] Dictated By: Bertha Christianson II, DO DD/ 1009 Signed By: <Electronically signed by Bertha Christianson II, DO> 09/05/21 10[address] [facility] Work Phone: 1(701) 101-768111-15-2021 Progress note Author Bertha Christianson [facility] August 29, 2021 10:05am Note Date/Time August 29, 2021 10:02am [facility] [place] [address] Hem/Onc Follow Up Note - OP Signed Patient: Melida Valerio MR#: [id number] : 1940 Acct:[id number] Age/Sex: 81 / F Type: REG RCR Copies to: DO Hiral Teague DO~ Date of Service: 08/29/2021 Time of Service: 09:59 - Assessment & Plan (1) Non-small cell lung cancer (NSCLC) Plan: 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 getting concurrent chemoradiation for her cancer. likely cahto doublet x 2 cycles followed by maintenance. Neg MRI brain. Extensive discussion with the patient and she would rather forgo surgical evaluation as she is not likely to agree. 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 c1d1 carbo + taxol on 08/08/21. c1d8 on 08/15/21 c1d15 planned for 08/22/21 tentatively. Will HOLD taxol d/t toxicity but plan to give carbo alone depending on how she feels day of treatment We will send additional testing on her tumor from [facility] which will include molecular testing for EGFR, PD-L1, ALK, MET, ROS etc. History of localized breast cancer. She got radiation, did not get chemotherapy and refused adjuvant endocrine therapy. Continues to get mammograms and have been negative for active disease. Extremely strong family history for breast cancer. We will discussed the role of genetic testing further. She did not get genetic testing, as her sister had genetic testing and the patient has no biological children. 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 Not much in right foot. offered gabapentin 300mg tid at visit 08.15.21 Follow Up Instructions: fluids today. no chemo today. repeat Cdiff. ua repeat. cxr today pa and lateral. f/u weekly. - History of Present Illness Chief Complaint: Patient here for follow up appointment before treatment with complaints of dizziness, shortness of breath with exertion, and increased weakness. She also notes she feels that her heart is racing at times. She notes that she has two days left on her antibiotic for c.diff, flagyl. HPI: 81-year-old female referred from Dr. Mccarty whom I previously followed at [facility] for breast cancer. Past medical history includes hypertension, chronic venous insufficiency, gastroesophageal reflux disease, type 2 diabetes, quit smoking in 1999, pernicious anemia, hypothyroidism, iron deficiency anemia, paroxysmal atrial fibrillation, hyperlipidemia, chronic bronchitis.. She had a hysterectomy and nephrectomy in her 20s for endometriosis. Outpatient medications include ProAir, levothyroxine, hydrochlorothiazide, amlodipine, montelukast, amiodarone. DEXA scan from 2018 shows osteopenia in the hip and normal in the spine echocardiogram from May 2019 shows ejection fraction of greater than 55%, no significant wall motion abnormalities and mild diastolic dysfunction. Slightly elevated right-sided pressures. No significant valvular abnormalities. She does have a sister with breast cancer in her 40s, mother sister had breast cancer in her 70s, mother's other sister had breast cancer in her 70s, mother had breast cancer in her 50s. Melida has 2 adopted children. She was diagnosed with ER/WA positive HER-2 negative breast cancer in 2009 at a hospital in [place]. She got adjuvant radiotherapy following lumpectomy. She did not get chemotherapy and refused adjuvant tamoxifen and has been monitored since. CAT scan of the chest from January 2017 showed no evidence of disease. She followed up with mammograms regularly and they were all normal. She had some short of breath since December 2020. In late April she noted a slight right upper quadrant pain. Worse with deep breathing. She went to ER on 05/16/21. She had XR with R sided consolidation. and A CT of the abdomen and pelvis from May 16, 2021 with IV contrast shows normallung bases, normal liver, pancreas, gallbladder, spleen. Left adrenal 2 cm nodule, normal kidneys, bladder, bowel, peritoneum. No enlarged lymph nodes. No abnormalities in the bones. She was admitted to the hospital and had CT chest next day which noted a large mass. Some dry irritating cough. She was discharged and f/u with dr. mccarty. She had a bronchoscopy on 05/30/[address] Mccarty. Found an endobronchial mass in the lateral segment of the right middle lobe. 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 Negative for TTF-1 and positive for P 40. She had pulmonary function studies in December 2020 with an FEV1 of 1.95 L in the right middle lobe only comprises 11% of the total lung capacity. She has not yet had PET/CT. had EBUS Dr. JOHNSON. Nodes all negative adrenal biopsy negative. PET/CT with disease localized, few nodes curious. 07/29/21 she describes a bandlike discomfort just below her ribcage on the right side. she says feels like there is something in there moving around. She feels like she is going to faint sometimes. She describes this a scary pain feeling. Her shortness of breath has progressed marginally. She had a port placed nearly 2 wks ago. Become very sore for the last day or two. They had some problem drawing blood from this. in dermott it was usable. She had ER visit for UTI and got IV abx and now on oral abx. she gets very short of breath after a half of flight of stairs. 08/15/21 started chemoradiation with weekly carbo taxol on 08/08. week 2 chemo today. she did well with chemo, constipation was her main issue. she is now on a stool softener. 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 It makes it hard to wear shoes. does not describe as a burning. socks hurt her sheets. she has had thiscomplaint for many years. 08/19/21 feels pretty bad today, is tired and weak. has headaches, dizziness, nausea, no appetite and body aches she has weakness to all extremities, shayan BUEs. has some watery stools continues with neuropathy in L foot u/a negative for UTI, chest XR negative as well. started antbx 2 days ago she only took gabapentin x 1 day. didnt like how it make her feel. 08/29/21 more short of breath recently. very unsteady on her feet. diarrhea is still present although improved. She continues on flagyl 4x per daylast dose tomorrow. not much nausea. no falls. using a walking stick. got carbo alone last week. she has 3 wks radaition left. - Physical Exam ECOG PS:1 General : patient is alert and oriented to person place and time, no acute distress. Neck: no JVD or thyromegaly. Lymph: no cervical, supraclavicular, axillary adenopathy. Heart: regular rate and rhythm no murmurs rubs or gallops. Abdomen: soft nontender nondistended, no hepatosplenomegaly. Lungs: clear to auscultation bilaterally. No wheezes, rales, rhonchi. Extremities: no clubbing cyanosis. trace bilateral edema L greater than right. - Time with Patient Coordination of Care & Counseling Time: Greater than 50% of time spent with patient was for coordination of care (as documented) and [id number] counseling of patient and/or family. 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 Nicotine dependence, cigarettes, in remission Pernicious anemia Primary insomnia - Surgical History Surgical History: Surgical History (Last Reviewed 07/18/21 @ 09:55 by Airam Brantley RN) History of appendectomy History of hernia repair History of hysterectomy History of left breast biopsy History of tonsillectomy - Family History Family History: Family History (Last Reviewed 06/27/21 @ 11:16 by Joana Li LPN) Other Breast cancer Pancreatic cancer Prostate cancer - Social History Smoking Status: Former smoker Substance Use Type: None Additional Data - Additional Objective Data Height/Weight: Weight 90.945 kg BSA for Today's Weight 2.03 Vital Signs: 08/29/21 09:32 Temperature 97.8 F Pulse Rate [Left Brachial] 66 Respiratory Rate 16 Blood Pressure [Left Arm] 119/57 L 02 Sat by Pulse Oximetry 97 Distress Screening: RN Distress Screening Start: 06/09/21 11:10 Freq: Status: Complete Protocol: Document 06/23/21 14:32 DB (Rec: 06/23/21 14:32 DB [id number]) Distress Screening Distress Score: 0 No worry/distress Distress Screening Total 0 RN Distress Screening Start: 06/09/21 11:42 Freq: Status: Active Protocol: Document 08/01/21 10:42 DB (Rec: 08/01/21 10:43 DB [id number]) Distress Screening Distress Score: 2 Physical Concerns Feeling tired or a lack of energy Emotional Concerns Feeling uncertain about the future Distress Screening Total 2 - Lab Results Diagram of Most Recent CBC and CMP 08/26/21 13:20 08/26/21 13:20 Labs - Last 7 Days 08/26/21 13:20: PHA Creatinine Clear N/A, Sodium 136, Potassium 3.5, Chloride 99, Carbon Dioxide 26.4, BUN 9, Creatinine 1.07 H, Est GFR ( Amer) 60, Est GFR (Non-Af Amer) 49, Glucose 112 H, Calcium 7.8 L, Total Bilirubin 0.4, AST22, ALT 18, Alkaline Phosphatase 75, Total Protein 5.4 L, Albumin 2.7 L, Globulin 2.7, Albumin/Globulin Ratio 1.0 08/26/21 13:20: Corrected WBC 7.6, Uncorrected WBC Count 7.6, RBC 4.11, Hgb 11.7L, Hct 35.8, MCV 87.1, MCH 28.6, MCHC 32.8, RDW 16.3 H, Plt Count 357, MPV 6.3, Neut % (Auto) 79.5, Lymph % (Auto) 9.1, Bowie % (Auto) 10.7, Eos % (Auto) 0.2, Baso % (Auto) 0.5, Neut # (Auto) 6.0, Lymph # (Auto) 0.7 L, Bowie # (Auto) 0.8, Eos # (Auto) 0.0, Baso # (Auto) 0.0, Nucleated RBC % (auto) 0.1 08/22/21 09:30: PHA Creatinine Clear N/A, Sodium 135 L, Potassium 2.8 L*, Chloride 100, Carbon Dioxide 25.1, BUN 9, Creatinine 0.89, Est GFR ( Amer) > 60, Est GFR (Non-Af Amer) > 60, Glucose 157 H, Calcium 7.8 L, Total Bilirubin 0.6, AST 20, ALT 13, Alkaline Phosphatase 67, Total Protein 5.7 L, Albumin 2.5 L, Globulin 3.2, Albumin/Globulin Ratio 0.8 - Home Medications and Allergies Allergies/Adverse Reactions: Allergies RADHA Inhibitors Allergy (Verified 08/15/21 09:44) Unknown Reaction erythromycin base Allergy (Verified 08/15/21 09:44) Unknown Reaction rivaroxaban [From Xarelto] Allergy (Verified 08/15/21 09:44) Unknown Reaction tiotropium [From Spiriva with HandiHaler] Allergy (Verified 08/15/21 09:44) Unknown Reaction Home Medications: Home Medications albuterol sulfate 90 mcg/actuation aerosol inhaler (ProAir HFA) 2 puff INHALATION Q4H PRN 06/07/21 [History Confirmed 08/29/21] amiodarone 200 mg tablet 200 mg PO DAILY 06/07/21 [History Confirmed 08/29/21] amlodipine 5 mg tablet 5 mg PO DAILY 06/07/21 [History Confirmed 08/29/21] fluticasone 250 mcg-salmeterol 50 mcg/dose blistr powdr for inhalation (Advair Diskus) 1 inh INHALATION Q12H 06/07/21 [History Confirmed 08/29/21] hydrochlorothiazide 25 mg tablet 25 mg PO DAILY 06/07/21 [History Confirmed 08/29/21] levothyroxine 112 mcg tablet 112 mcg PO DIRECTED 06/07/21 [History Confirmed 08/29/21] levothyroxine 125 mcg tablet 125 mcg PO QMWF 06/07/21 [History Confirmed 08/29/21] montelukast 10 mg tablet 10 mg PO DAILY 06/07/21 [History Confirmed 08/29/21] ondansetron HCl 8 mg tablet 8 mg PO Q8H PRN #30 tab 06/17/21 [Rx Confirmed 08/29/21] lorazepam 0.5 mg tablet 0.5 mg PO BID PRN 30 Days #60 tab 07/18/21 [Rx Confirmed 08/29/21] gabapentin 300 mg capsule 300 mg PO TID #90 cap 08/15/21 [Rx Confirmed 08/29/21] levofloxacin 750 mg tablet 750 mg PO DAILY 08/19/21 [History Confirmed 08/29/21] Magic Mouth Wash 1 tsp PO Q6H 08/26/21 [History Confirmed 08/29/21] omeprazole 10 mg capsule,delayed release 10 mg PO DAILY 08/26/21 [History Confirmed 08/29/21] Dictated By: Bertha Christianson II, DO DD/ 8 Signed By: <Electronically signed by Bertha Christianson II, DO> 08/29/21 [facility] Work Phone: 1(380) 543-100711-08-2021 Progress note Author Bertha Christianson [facility] August 22, 2021 8:07am Note Date/Time August 19, 2021 4 :15pm [facility] at [address] [address] Hem/Onc Follow Up Note - OP Signed Patient: Melida Valerio MR#: [id number] : 1940 Acct:[id number] Age/Sex: 81 / F Type: REG RCR Copies to: DO Hiral Teague DO~ Date of Service: 08/19/2021 Time of Service: 16:14 - Assessment & Plan (1) Non-small cell lung cancer (NSCLC) Plan: 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 getting concurrent chemoradiation for her cancer. likely cahto doublet x 2 cycles followed by maintenance. Neg MRI brain. Extensive discussion with the patient and she would rather forgo surgical evaluation as she is not likely to agree. 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 c1d1 carbo + taxol on 08/08/21. c1d8 on 08/15/21 c1d15 planned for 08/22/21 tentatively. Will HOLD taxol d/t toxicity but plan to give carbo alone depending on how she feels day of treatment We will send additional testing on her tumor from [facility] which will include molecular testing for EGFR, PD-L1, ALK, MET, ROS etc. History of localized breast cancer. She got radiation, did not get chemotherapy and refused adjuvant endocrine therapy. Continues to get mammograms and have been negative for active disease. Extremely strong family history for breast cancer. We will discussed the role of genetic testing further. She did not get genetic testing, as her sister had genetic testing and the patient has no biological children. 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 Not much in right foot. offered gabapentin 300mg tid at visit 08.15.21 Follow Up Instructions: give 1000mL IV fluids (sodium chloride 0.9%) c diff, tsh, t3, free t4, acth, cortisol today HOLD taxol on Sunday follow-up in 1wk - History of Present Illness Chief Complaint: Patient is here for a 4 day follow up with labs and chest xray 08/18/2021 for review. Patient states that she has been pretty weak, her body aches, she has been having nausea, is dizzy and has no appetite. No other concerns are voiced at this time. HPI: 81-year-old female referred from Dr. Mccarty whom I previously followed at [facility] for breast cancer. Past medical history includes hypertension, chronic venous insufficiency, gastroesophageal reflux disease, type 2 diabetes, quit smoking in 1999, pernicious anemia, hypothyroidism, iron deficiency anemia, paroxysmal atrial fibrillation, hyperlipidemia, chronic bronchitis.. She had a hysterectomy and nephrectomy in her 20s for endometriosis. Outpatient medications include ProAir, levothyroxine, hydrochlorothiazide, amlodipine, montelukast, amiodarone. DEXA scan from 2018 shows osteopenia in the hip and normal in the spine echocardiogram from May 2019 shows ejection fraction of greater than 55%, no significant wall motion abnormalities and mild diastolic dysfunction. Slightly elevated right-sided pressures. No significant valvular abnormalities. She does have a sister with breast cancer in her 40s, mother sister had breast cancer in her 70s, mother's other sister had breast cancer in her 70s, mother had breast cancer in her 50s. Melida has 2 adopted children. She was diagnosed with ER/WA positive HER-2 negative breast cancer in 2009 at a hospital in [place]. She got adjuvant radiotherapy following lumpectomy. She did not get chemotherapy and refused adjuvant tamoxifen and has been monitored since. CAT scan of the chest from January 2017 showed no evidence of disease. She followed up with mammograms regularly and they were all normal. She had some short of breath since December 2020. In late April she noted a slight right upper quadrant pain. Worse with deep breathing. She went to ER on 05/16/21. She had XR with R sided consolidation. and A CT of the abdomen and pelvis from May 16, 2021 with IV contrast shows normallung bases, normal liver, pancreas, gallbladder, spleen. Left adrenal 2 cm nodule, normal kidneys, bladder, bowel, peritoneum. No enlarged lymph nodes. No abnormalities in the bones. She was admitted to the hospital and had CT chest next day which noted a large mass. Some dry irritating cough. She was discharged and f/u with dr. mccarty. She had a bronchoscopy on 05/30/[address] Mccarty. Found an endobronchial mass in the lateral segment of the right middle lobe. 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 Negative for TTF-1 and positive for P 40. She had pulmonary function studies in December 2020 with an FEV1 of 1.95 L in the right middle lobe only comprises 11% of the total lung capacity. She has not yet had PET/CT. had EBUS Dr. JOHNSON. Nodes all negative adrenal biopsy negative. PET/CT with disease localized, few nodes curious. 07/29/21 she describes a bandlike discomfort just below her ribcage on the right side. she says feels like there is something in there moving around. She feels like she is going to faint sometimes. She describes this a scary pain feeling. Her shortness of breath has progressed marginally. She had a port placed nearly 2 wks ago. Become very sore for the last day or two. They had some problem drawing blood from this. in dermott it was usable. She had ER visit for UTI and got IV abx and now on oral abx. she gets very short of breath after a half of flight of stairs. 08/15/21 started chemoradiation with weekly carbo taxol on 08/08. week 2 chemo today. she did well with chemo, constipation was her main issue. she is now on a stool softener. 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 It makes it hard to wear shoes. does not describe as a burning. socks hurt her sheets. she has had thiscomplaint for many years. 08/19/21 feels pretty bad today, is tired and weak. has headaches, dizziness, nausea, no appetite and body aches she has weakness to all extremities, shayan BUEs. has some watery stools continues with neuropathy in L foot u/a negative for UTI, chest XR negative as well. started antbx 2 days ago she only took gabapentin x 1 day. didnt like how it make her feel. - Physical Exam ECOG PS:0 General : patient is alert and oriented to person place and time, no acute distress. Neck: no JVD or thyromegaly. Lymph: no cervical, supraclavicular, axillary adenopathy. Heart: regular rate and rhythm no murmurs rubs or gallops. Abdomen: soft nontender nondistended, no hepatosplenomegaly. Lungs: clear to auscultation bilaterally. No wheezes, rales, rhonchi. Extremities: no clubbing cyanosis. trace bilateral edema L greater than right. - Time with Patient Coordination of Care & Counseling Time: Greater than 50% of time spent with patient was for coordination of care (as documented) and [id number] counseling of patient and/or family. 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 blood loss (chronic) snf (current) use of inhaled steroids Nicotine dependence, cigarettes, in remission Pernicious anemia Primary insomnia - Surgical History Surgical History: Surgical History (Last Reviewed 07/18/21 @ 09:55 by Airam Brantley RN) History of appendectomy History of hernia repair History of hysterectomy History of left breast biopsy History of tonsillectomy - Family History Family History: Family History (Last Reviewed 06/27/21 @ 11:16 by Joana Li LPN) Other Breast cancer Pancreatic cancer Prostate cancer - Social History Smoking Status: Former smoker Substance Use Type: None Additional Data - Additional Objective Data Height/Weight: Weight 89.857 kg BSA for Today's Weight 2.06 Vital Signs: 08/19/21 14:01 Temperature 98 F Pulse Rate [Left Brachial] 76 Respiratory Rate 20 Blood Pressure [Left Arm] 114/67 02 Sat by Pulse Oximetry 97 Distress Screening: Emotional Needs Identified? Yes Support System Spouse RN Distress Screening Start: 06/09/21 11:10 Freq: Status: Complete Protocol: Document 06/23/21 14:32 DB (Rec: 06/23/21 14:32 DB [id number]) Distress Screening Distress Score: 0 No worry/distress Distress Screening Total 0 RN Distress Screening Start: 06/09/21 11:42 Freq: Status: Active Protocol: Document 08/01/21 10:42 DB (Rec: 08/01/21 10:43 DB [id number]) Distress Screening Distress Score: 2 Physical Concerns Feeling tired or a lack of energy Emotional Concerns Feeling uncertain about the future Distress Screening Total 2 - Lab Results Diagram of Most Recent CBC and CMP 08/18/21 13:56 08/18/21 13:56 Labs - Last 7 Days 08/18/21 13:58: Urine Color Yellow, Urine Appearance Clear, Urine pH 5.5, Ur Specific Anderson 1.021, Urine Protein Negative, Urine Glucose (UA) Normal, UrineKetones Trace H, Urine Occult Blood Negative, Urine Nitrite Negative, Urine Bilirubin Negative, Urine Urobilinogen Normal, Ur Leukocyte Esterase 3+ H, UrineRBC 3-4, Urine WBC 10-19 H, Ur Squamous Epith Cells 5-9 H, Other Crystals Starch, Urine Bacteria None seen, Hyaline Casts 0-8, Urine Yeast None seen 08/18/21 13:56: PHA Creatinine Clear N/A, Sodium 134 L, Potassium 3.7, Chloride 97, Carbon Dioxide 26.2, BUN 12, Creatinine 0.98, Est GFR ( Amer) > 60, Est GFR (Non-Af Amer) 55, Glucose 80, Calcium 8.1 L, Total Bilirubin 1.0, AST 22, ALT 18, Alkaline Phosphatase 70, Total Protein 5.6 L, Albumin 2.8 L, Globulin 2.8, Albumin/Globulin Ratio 1.0 08/18/21 13:56: Corrected WBC 9.5, Uncorrected WBC Count 9.5, RBC 4.17, Hgb 11.9, Hct 35.8, MCV 85.9, MCH 28.5, MCHC 33.1, RDW 15.9 H, Plt Count 243, MPV 7.5, Neut % (Auto) 88.2, Lymph % (Auto) 6.4, Bowie % (Auto) 4.5, Eos % (Auto) 0.6, Baso % (Auto) 0.3, Neut # (Auto) 8.4 H, Lymph # (Auto) 0.6 L, Bowie # (Auto)0.4, Eos # (Auto) 0.1, Baso # (Auto) 0.0, Nucleated RBC % (auto) 0.0 - Microbiology Results 08/18/21 13:58 Urine - Voided Urine Culture - Preliminary <10,000 colonies/ml mixed bacterial skin contaminants including mixed gram negative bacilli - 1 Day - Home Medications and Allergies Allergies/Adverse Reactions: Allergies RADHA Inhibitors Allergy (Verified 08/15/21 09:44) Unknown Reaction erythromycin base Allergy (Verified 08/15/21 09:44) Unknown Reaction rivaroxaban [From Xarelto] Allergy (Verified 08/15/21 09:44) Unknown Reaction tiotropium [From Spiriva with HandiHaler] Allergy (Verified 08/15/21 09:44) Unknown Reaction Home Medications: Home Medications albuterol sulfate 90 mcg/actuation aerosol inhaler (ProAir HFA) 2 puff INHALATION Q4H PRN 06/07/21 [History Confirmed 08/19/21] amiodarone 200 mg tablet 200 mg PO DAILY 06/07/21 [History Confirmed 08/19/21] amlodipine 5 mg tablet 5 mg PO DAILY 06/07/21 [History Confirmed 08/19/21] fluticasone 250 mcg-salmeterol 50 mcg/dose blistr powdr for inhalation (Advair Diskus) 1 inh INHALATION Q12H 06/07/21 [History Confirmed 08/19/21] hydrochlorothiazide 25 mg tablet 25 mg PO DAILY 06/07/21 [History Confirmed 08/19/21] levothyroxine 112 mcg tablet 112 mcg PO DIRECTED 06/07/21 [History Confirmed 08/19/21] levothyroxine 125 mcg tablet 125 mcg PO QMWF 06/07/21 [History Confirmed 08/19/21] montelukast 10 mg tablet 10 mg PO DAILY 06/07/21 [History Confirmed 08/19/21] ondansetron HCl 8 mg tablet 8 mg PO Q8H PRN #30 tab 06/17/21 [Rx Confirmed 08/19/21] lorazepam 0.5 mg tablet 0.5 mg PO BID PRN 30 Days #60 tab 07/18/21 [Rx Confirmed 08/19/21] gabapentin 300 mg capsule 300 mg PO TID #90 cap 08/15/21 [Rx Confirmed 08/19/21] levofloxacin 750 mg tablet 750 mg PO DAILY 08/19/21 [History Confirmed 08/19/21] Dictated By: Gardenia Beach APRN DD/ 1614 Signed By: <Electronically signed by BACILIO Beach> 08/19/21 1634 <Electronically signed by Bertha Christianson II, DO> 08/22/21 [facility] Work Phone: 1(302) 642-400511-01-2021 Progress note Author Bertha Christianson [facility] August 15, 2021 10:10am Note Date/Time August 15, 2021 9 :58am [facility] at [address] [address] Hem/Onc Follow Up Note - OP Signed Patient: Melida Valerio MR#: [id number] : 1940 Acct:[id number] Age/Sex: 81 / F Type: REG RCR Copies to: Wong Espino,DO Hiral Mccarty DO~ Date of Service: 08/15/2021 Time of Service: 09:54 - Assessment & Plan (1) Non-small cell lung cancer (NSCLC) Plan: 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 getting concurrent chemoradiation for her cancer. likely cahto doublet x 2 cycles followed by maintenance. Neg MRI brain. Extensive discussion with the patient and she would rather forgo surgical evaluation as she is not likely to agree. She understands that resection would be better than chemoradiation for fdc outcomes We will send additional testing on her tumor from [facility] which will include molecular testing for EGFR, PD-L1, ALK, MET, ROS etc. History of localized breast cancer. She got radiation, did not get chemotherapy and refused adjuvant endocrine therapy. Continues to get mammograms and have been negative for active disease. Extremely strong family history for breast cancer. We will discussed the role of genetic testing further. She did not get genetic testing, as her sister had genetic testing and the patient has no biological children. 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 Not much in right foot. offered gabapentin 300mg tid at visit 11.1.21 Follow Up Instructions: cont weekly chemoradiation. f/u and repeat in 2 wks. start gabapentin 300mg tid. cbc, cmp weekly. - History of Present Illness Chief Complaint: Patient is here for a 3 week follow up with labs for review prior to treatment today. She states she has some neuropathy in her feet and some pain in her legs. Patient also reports being a bit fatigued. No other concerns voiced at this time. HPI: 81-year-old female referred from Dr. Mccarty whom I previously followed at [facility] for breast cancer. Past medical history includes hypertension, chronic venous insufficiency, gastroesophageal reflux disease, type2 diabetes, quit smoking in 1999, pernicious anemia, hypothyroidism, iron deficiency anemia, paroxysmal atrial fibrillation, hyperlipidemia, chronic bronchitis.. She had a hysterectomy and nephrectomy in her 20s for endometriosis. Outpatient medications include ProAir, levothyroxine, hydrochlorothiazide, amlodipine, montelukast, amiodarone. DEXA scan from 2018 shows osteopenia in the hip and normal in the spine echocardiogram from May 2019 shows ejection fraction of greater than 55%, no significant wall motion abnormalities and mild diastolic dysfunction. Slightly elevated right-sided pressures. No significant valvular abnormalities. She does have a sister with breast cancer in her 40s, mother sister had breast cancer in her 70s, mother's other sister had breast cancer in her 70s, mother had breast cancer in her 50s. Melida has 2 adopted children. She was diagnosed with ER/WA positive HER-2 negative breast cancer in 2009 at a hospital in [place]. She got adjuvant radiotherapy following lumpectomy. She did not get chemotherapy and refused adjuvant tamoxifen and has been monitored since. CAT scan of the chest from January 2017 showed no evidence of disease. She followed up with mammograms regularly and they were all normal. She had some short of breath since December 2020. In late April she noted a slight right upper quadrant pain. Worse with deep breathing. She went to ER on 05/16/21. She had XR with R sided consolidation. and A CT of the abdomen and pelvis from May 16, 2021 with IV contrast shows normallung bases, normal liver, pancreas, gallbladder, spleen. Left adrenal 2 cm nodule, normal kidneys, bladder, bowel, peritoneum. No enlarged lymph nodes. No abnormalities in the bones. She was admitted to the hospital and had CT chest next day which noted a large mass. Some dry irritating cough. She was discharged and f/u with dr. mccarty. She had a bronchoscopy on 05/30/[address] Mccarty. Found an endobronchial mass in the lateral segment of the right middle lobe. 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 Negative for TTF-1 and positive for P 40. She had pulmonary function studies in December 2020 with an FEV1 of 1.95 L in the right middle lobe only comprises 11% of the total lung capacity. She has not yet had PET/CT. had EBUS Dr. JOHNSON. NOdes all negative adrenal biopsy negative. PET/CT with disease localized, few nodes curious. 07/29/21 she describes a bandlike discomfort just below her ribcage on the right side. she says feels like there is something in there moving around. She feels like she is going to faint sometimes. She desribes this a scary pain feeling. Her shortness of breath has progressed marginally. She had a port placed nearly 2 wks ago. Become very sore for the last day or two. They had some problem drawing blood from this. in dermott it was usable. She had ER visit for UTI and got IV abx and now on oral abx. she gets very short of breath after a half of flight of stairs. 08/15/21 started chemoradiation with weekly carbo taxol on 08/08. week 2 chemo today. she did well with chemo, constipation was her main issue. she is now on a stool softener. 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 It makes it hard to wear shoes. does not describe as a burning. socks hurt her sheets. she has had thiscomplaint for many years. - Physical Exam ECOG PS:0 General : patient is alert and oriented to person place and time, no acute distress. Neck: no JVD or thyromegaly. Lymph: no cervical, supraclavicular, axillary adenopathy. Heart: regular rate and rhythm no murmurs rubs or gallops. Abdomen: soft nontender nondistended, no hepatosplenomegaly. Lungs: clear to auscultation bilaterally. No wheezes, rales, rhonchi. Extremities: no clubbing cyanosis. trace bilateral edema L greater than right. - Time with Patient Coordination of Care & Counseling Time: Greater than 50% of time spent with patient was for coordination of care (as documented) and [id number] counseling of patient and/or family. 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 blood loss (chronic) snf (current) use of inhaled steroids Nicotine dependence, cigarettes, in remission Pernicious anemia Primary insomnia - Surgical History Surgical History: Surgical History (Last Reviewed 07/18/21 @ 09:55 by Airam Brantley RN) History of appendectomy History of hernia repair History of hysterectomy History of left breast biopsy History of tonsillectomy - Family History Family History: Family History (Last Reviewed 06/27/21 @ 11:16 by Joana Li LPN) Other Breast cancer Pancreatic cancer Prostate cancer - Social History Smoking Status: Former smoker Substance Use Type: None Additional Data - Additional Objective Data Height/Weight: Weight 92.261 kg BSA for Today's Weight 2.07 Vital Signs: 08/15/21 09:45 Temperature 97.8 F Pulse Rate [Left Brachial] 61 Respiratory Rate 20 Blood Pressure [Left Arm] 149/69 H 02 Sat by Pulse Oximetry 99 Distress Screening: RN Distress Screening Start: 06/09/21 11:10 Freq: Status: Complete Protocol: Document 06/23/21 14:32 DB (Rec: 06/23/21 14:32 DB [id number]) Distress Screening Distress Score: 0 No worry/distress Distress Screening Total 0 RN Distress Screening Start: 06/09/21 11:42 Freq: Status: Active Protocol: Document 08/01/21 10:42 DB (Rec: 08/01/21 10:43 DB [id number]) Distress Screening Distress Score: 2 Physical Concerns Feeling tired or a lack of energy Emotional Concerns Feeling uncertain about the future Distress Screening Total 2 - Lab Results Diagram of Most Recent CBC and CMP 08/12/21 13:45 08/12/21 13:45 Labs - Last 7 Days 08/12/21 13:45: PHA Creatinine Clear N/A, Sodium 136, Potassium 3.5, Chloride 101, Carbon Dioxide 25.1, BUN 9, Creatinine 0.88, Est GFR ( Amer) > 60, Est GFR (Non-Af Amer) > 60, Glucose 88, Calcium 8.1 L, Total Bilirubin 0.8, AST 27, ALT 21, Alkaline Phosphatase 65, Total Protein 6.2, Albumin 3.2, Globulin 3.0, Albumin/Globulin Ratio 1.1 08/12/21 13:45: Corrected WBC 5.1, Uncorrected WBC Count 5.1, RBC 4.44, Hgb 12.5, Hct 38.0, MCV 85.6, MCH 28.1, MCHC 32.9, RDW 16.2 H, Plt Count 235, MPV 7.3, Neut % (Auto) 80.3, Lymph % (Auto) 12.9, Bowie % (Auto) 5.1, Eos % (Auto) 1.2, Baso % (Auto) 0.5, Neut # (Auto) 4.1, Lymph # (Auto) 0.7 L, Bowie # (Auto) 0.3, Eos # (Auto) 0.1, Baso # (Auto) 0.0, Nucleated RBC % (auto) 0.1 - Home Medications and Allergies Allergies/Adverse Reactions: Allergies RADHA Inhibitors Allergy (Verified 08/15/21 09:44) Unknown Reaction erythromycin base Allergy (Verified 08/15/21 09:44) Unknown Reaction rivaroxaban [From Xarelto] Allergy (Verified 08/15/21 09:44) Unknown Reaction tiotropium [From Spiriva with HandiHaler] Allergy (Verified 08/15/21 09:44) Unknown Reaction Home Medications: Home Medications albuterol sulfate 90 mcg/actuation aerosol inhaler (ProAir HFA) 2 puff INHALATION Q4H PRN 06/07/21 [History Confirmed 08/15/21] amiodarone 200 mg tablet 200 mg PO DAILY 06/07/21 [History Confirmed 08/15/21] amlodipine 5 mg tablet 5 mg PO DAILY 06/07/21 [History Confirmed 08/15/21] fluticasone 250 mcg-salmeterol 50 mcg/dose blistr powdr for inhalation (Advair Diskus) 1 inh INHALATION Q12H 06/07/21 [History Confirmed 08/15/21] hydrochlorothiazide 25 mg tablet 25 mg PO DAILY 06/07/21 [History Confirmed 08/15/21] levothyroxine 112 mcg tablet 112 mcg PO DIRECTED 06/07/21 [History Confirmed 08/15/21] levothyroxine 125 mcg tablet 125 mcg PO QMWF 06/07/21 [History Confirmed 08/15/21] montelukast 10 mg tablet 10 mg PO DAILY 06/07/21 [History Confirmed 08/15/21] ondansetron HCl 8 mg tablet 8 mg PO Q8H PRN #30 tab 06/17/21 [Rx Confirmed 08/15/21] lorazepam 0.5 mg tablet 0.5 mg PO BID PRN 30 Days #60 tab 07/18/21 [Rx Confirmed 08/15/21] Dictated By: Bertha Christianson II, DO DD/ [id number] Signed By: <Electronically signed by Bertha Christianson II, DO> 08/15/21 [address] [facility] Work Phone: 1(217) 854-506010-20-2021 Progress note Author Bertha Christianson [facility] August 03, 2021 2:47pm Note Date/Time July 29, 2021 2 :23pm [facility] [place] [id number] Hem/Onc Follow Up Note - OP Signed Patient: Melida Valerio MR#: [id number] : 1940 Acct:[id number] Age/Sex: 81 / F Type: REG RCR Copies to: DO Hiral Teague DO~ Date of Service: 07/29/2021 Time of Service: 14:23 - Assessment & Plan (1) Non-small cell lung cancer (NSCLC) Plan: 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 Consider for concurrent chemoradiation therapy. will send to rad onc for evaluation. likely cahto doublet x 2 cycles followed by maintenance. Neg MRI brain not surgical candidate likely. Extensive discussion with the patient and she would rather forgo surgical evaluation as she is not likely to agree. She understands that resection would be better than chemoradiation for fdc outcomes We will send additional testing on her tumor from [facility] which will include molecular testing for EGFR, PD-L1, ALK, MET, ROS etc. History of localized breast cancer. She got radiation, did not get chemotherapy and refused adjuvant endocrine therapy. Continues to get mammograms and have been negative for active disease. Extremely strong family history for breast cancer. We will discussed the role of genetic testing further. She did not get genetic testing, as her sister had genetic testing and the patient has no biological children. - History of Present Illness Chief Complaint: Patient is here today for 6 week follow up visit for non-small cell lung cancer HPI: 81-year-old female referred from Dr. Mccarty whom I previously followed at [facility] for breast cancer. Past medical history includes hypertension, chronic venous insufficiency, gastroesophageal reflux disease, type 2 diabetes, quit smoking in 1999, pernicious anemia, hypothyroidism, iron deficiency anemia, paroxysmal atrial fibrillation, hyperlipidemia, chronic bronchitis.. She had a hysterectomy and nephrectomy in her 20s for endometriosis. Outpatient medications include ProAir, levothyroxine, hydrochlorothiazide, amlodipine, montelukast, amiodarone. DEXA scan from 2018 shows osteopenia in the hip and normal in the spine echocardiogram from May 2019 shows ejection fraction of greater than 55%, no significant wall motion abnormalities and mild diastolic dysfunction. Slightly elevated right-sided pressures. No significant valvular abnormalities. She does have a sister with breast cancer in her 40s, mother sister had breast cancer in her 70s, mother's other sister had breast cancer in her 70s, mother had breast cancer in her 50s. Melida has 2 adopted children. She was diagnosed with ER/WA positive HER-2 negative breast cancer in 2009 at a hospital in [place]. She got adjuvant radiotherapy following lumpectomy. She did not get chemotherapy and refused adjuvant tamoxifen and has been monitored since. CAT scan of the chest from January 2017 showed no evidence of disease. She followed up with mammograms regularly and they were all normal. She had some short of breath since December 2020. In late April she noted a slight right upper quadrant pain. Worse with deep breathing. She went to ER on 05/16/21. She had XR with R sided consolidation. and A CT of the abdomen and pelvis from May 16, 2021 with IV contrast shows normallung bases, normal liver, pancreas, gallbladder, spleen. Left adrenal 2 cm nodule, normal kidneys, bladder, bowel, peritoneum. No enlarged lymph nodes. No abnormalities in the bones. She was admitted to the hospital and had CT chest next day which noted a large mass. Some dry irritating cough. She was discharged and f/u with dr. mccarty. She had a bronchoscopy on 05/30/[address] Mccarty. Found an endobronchial mass in the lateral segment of the right middle lobe. 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 Negative for TTF-1 and positive for P 40. She had pulmonary function studies in December 2020 with an FEV1 of 1.95 L in the right middle lobe only comprises 11% of the total lung capacity. She has not yet had PET/CT. had EBUS Dr. JOHNSON. NOdes all negative adrenal biopsy negative. PET/CT with disease localized, few nodes curious. 07/29/21 she describes a bandlike discomfort just below her ribcage on the right side. she says feels like there is something in there moving around. She feels like she is going to faint sometimes. She desribes this a scary pain feeling. Her shortness of breath has progressed marginally. She had a port placed nearly 2 wks ago. Become very sore for the last day or two. They had some problem drawing blood from this. in dermott it was usable. She had ER visit for UTI and got IV abx and now on oral abx. - Physical Exam ECOG PS:0 General : patient is alert and oriented to person place and time, no acute distress. Neck: no JVD or thyromegaly. Lymph: no cervical, supraclavicular, axillary adenopathy. Heart: regular rate and rhythm no murmurs rubs or gallops. Abdomen: soft nontender nondistended, no hepatosplenomegaly. Lungs: clear to auscultation bilaterally. No wheezes, rales, rhonchi. Extremities: no clubbing cyanosis. trace bilateral edema L greater than right. - Time with Patient Coordination of Care & Counseling Time: Greater than 50% of time spent with patient was for coordination of care (as documented) and [id number] counseling of patient and/or family. 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 blood loss (chronic) snf (current) use of inhaled steroids Nicotine dependence, cigarettes, in remission Pernicious anemia Primary insomnia - Surgical History Surgical History: Surgical History (Last Reviewed 07/18/21 @ 09:55 by Airam Brantley RN) History of appendectomy History of hernia repair History of hysterectomy History of left breast biopsy History of tonsillectomy - Family History Family History: Family History (Last Reviewed 06/27/21 @ 11:16 by Joana Li LPN) Other Breast cancer Pancreatic cancer Prostate cancer - Social History Smoking Status: Former smoker Substance Use Type: None Additional Data - Additional Objective Data Height/Weight: Weight 92.079 kg Vital Signs: 07/29/21 13:48 Pulse Rate [Left Brachial] 61 Respiratory Rate 20 Blood Pressure [Left Arm] 150/67 H 02 Sat by Pulse Oximetry 98 ONC Emotional Needs Assessment: Emotional Needs Identified? No - Lab Results Diagram of Most Recent CBC and CMP 07/14/21 15:52 06/24/21 11:16 - Home Medications and Allergies Allergies/Adverse Reactions: Allergies RADHA Inhibitors Allergy (Verified 07/29/21 13:47) Unknown Reaction erythromycin base Allergy (Verified 07/29/21 13:47) Unknown Reaction rivaroxaban [From Xarelto] Allergy (Verified 07/29/21 13:47) Unknown Reaction tiotropium [From Spiriva with HandiHaler] Allergy (Verified 07/29/21 13:47) Unknown Reaction Home Medications: Home Medications albuterol sulfate 90 mcg/actuation aerosol inhaler (ProAir HFA) 2 puff INHALATION Q4H PRN 06/07/21 [History Confirmed 07/29/21] amiodarone 200 mg tablet 200 mg PO DAILY 06/07/21 [History Confirmed 07/29/21] amlodipine 5 mg tablet 5 mg PO DAILY 06/07/21 [History Confirmed 07/29/21] fluticasone 250 mcg-salmeterol 50 mcg/dose blistr powdr for inhalation (Advair Diskus) 1 inh INHALATION Q12H 06/07/21 [History Confirmed 07/29/21] hydrochlorothiazide 25 mg tablet 25 mg PO DAILY 06/07/21 [History Confirmed 07/29/21] levothyroxine 112 mcg tablet 112 mcg PO DIRECTED 06/07/21 [History Confirmed 07/29/21] levothyroxine 125 mcg tablet 125 mcg PO QMWF 06/07/21 [History Confirmed 07/29/21] montelukast 10 mg tablet 10 mg PO DAILY 06/07/21 [History Confirmed 07/29/21] ondansetron HCl 8 mg tablet 8 mg PO Q8H PRN #30 tab 06/17/21 [Rx Confirmed 07/29/21] lorazepam 0.5 mg tablet 0.5 mg PO BID PRN 30 Days #60 tab 07/18/21 [Rx Confirmed 07/29/21] Dictated By: Bertha Christianson II, DO DD/ 1423 Signed By: <Electronically signed by Bertha Christianson II, DO> 08/03/21 [address] [facility] Work Phone: [phone]) 781-244609-12-2021 Progress note Author Bertha Christianson [facility] June 26, 2021 12:13pm Note Date/Time June 17, 2021 2:41pm [facility] [place] [address] Hem/Onc Follow Up Note - OP Signed Patient: Melida Valerio MR#: [id number] : 1940 Acct:[id number] Age/Sex: 81 / F Type: REG RCR Copies to: DO Hiral Teague DO~ Date of Service: 06/17/2021 Time of Service: 14:35 - Assessment & Plan (1) Non-small cell lung cancer (NSCLC) Plan: Squamous cell carcinoma of the lung localized to the right side presumably. There is concern for an adrenal nodule, PET/CT may help further determine if this is neoplastic or not. I have to review CT images from [facility]. We will also get PET/CT to stage her fully and evaluate bones. We will check MRI brain. Referred to cardiothoracic surgery for further discussion. We will send additional testing on her tumor from [facility] which will include molecular testing for EGFR, PD-L1, ALK, MET,, ROS etc. History of localized breast cancer. She got radiation, did not get chemotherapy and refused adjuvant endocrine therapy. Continues to get mammograms and have been negative for active disease. Extremely strong family history for breast cancer. We will discussed the role of genetic testing further. She did not get genetic testing, as her sister had genetic testing and the patient has no biological children. Follow Up Instructions: radiation oncology thoracic surgery. f/u in 2 wks, plan carbo and paclitaxel cbc, cmp, cea. present at tumor board. - History of Present Illness Chief Complaint: Patient is here for a one week follow up to review PET scan andlab work. Patient states she has been very tired and winded and gets some low back pain. No other concerns voiced at this time. HPI: 81-year-old female referred from Dr. Mccarty whom I previously followed at [facility] for breast cancer. Past medical history includes hypertension, chronic venous insufficiency, gastroesophageal reflux disease, type 2 diabetes, quit smoking in 1999, pernicious anemia, hypothyroidism, iron deficiency anemia, paroxysmal atrial fibrillation, hyperlipidemia, chronic bronchitis.. She had a hysterectomy and nephrectomy in her 20s for endometriosis. Outpatient medications include ProAir, levothyroxine, hydrochlorothiazide, amlodipine, montelukast, amiodarone. DEXA scan from 2018 shows osteopenia in the hip and normal in the spine echocardiogram from May 2019 shows ejection fraction of greater than 55%, no significant wall motion abnormalities and mild diastolic dysfunction. Slightly elevated right-sided pressures. No significant valvular abnormalities. She does have a sister with breast cancer in her 40s, mother sister had breast cancer in her 70s, mother's other sister had breast cancer in her 70s, mother had breast cancer in her 50s. Melida has 2 adopted children. She was diagnosed with ER/WA positive HER-2 negative breast cancer in 2009 at a hospital in [place]. She got adjuvant radiotherapy following lumpectomy. She did not get chemotherapy and refused adjuvant tamoxifen and has been monitored since. CAT scan of the chest from January 2017 showed no evidence of disease. She followed up with mammograms regularly and they were all normal. She had some short of breath since December 2020. In late April she noted a slight right upper quadrant pain. Worse with deep breathing. She went to ER on 05/16/21. She had XR with R sided consolidation. and A CT of the abdomen and pelvis from May 16, 2021 with IV contrast shows normallung bases, normal liver, pancreas, gallbladder, spleen. Left adrenal 2 cm nodule, normal kidneys, bladder, bowel, peritoneum. No enlarged lymph nodes. No abnormalities in the bones. She was admitted to the hospital and had CT chest next day which noted a large mass. Some dry irritating cough. She was discharged and f/u with dr. mccarty. She had a bronchoscopy on 05/30/[address] Mccarty. Found an endobronchial mass in the lateral segment of the right middle lobe. 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 Negative for TTF-1 and positive for P 40. She had pulmonary function studies in December 2020 with an FEV1 of 1.95 L in the right middle lobe only comprises 11% of the total lung capacity. She has not yet had PET/CT. - Physical Exam ECOG PS:0 General : patient is alert and oriented to person place and time, no acute distress. Neck: no JVD or thyromegaly. Lymph: no cervical, supraclavicular, axillary adenopathy. Heart: regular rate and rhythm no murmurs rubs or gallops. Abdomen: soft nontender nondistended, no hepatosplenomegaly. Lungs: clear to auscultation bilaterally. No wheezes, rales, rhonchi. Extremities: no clubbing cyanosis. trace bilateral edema L greater than right. - Time with Patient Coordination of Care & Counseling Time: Greater than 50% of time spent with patient was for coordination of care (as documented) and [id number] counseling of patient and/or family. 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 Nicotine dependence, cigarettes, in remission Pernicious anemia Primary insomnia - Surgical History Surgical History: Surgical History (Last Reviewed 06/23/21 @ 15:19 by Jaime Solorio MD) History of appendectomy History of hernia repair History of hysterectomy History of left breast biopsy History of tonsillectomy - Family History Family History: Family History (Last Reviewed 06/23/21 @ 15:19 by Jaime Solorio MD) Other Breast cancer Pancreatic cancer Prostate cancer - Social History Smoking Status: Former smoker Substance Use Type: None Additional Data - Additional Objective Data Height/Weight: Weight 93.531 kg Vital Signs: 06/17/21 13:57 Temperature 97.8 F Pulse Rate [Left Brachial] 69 Respiratory Rate 20 Blood Pressure [Left Arm] 162/74 H 02 Sat by Pulse Oximetry 96 ONC Emotional Needs Assessment: Emotional Needs Identified? No - Lab Results Diagram of Most Recent CBC and CMP 06/15/21 10:00 06/15/21 10:00 Labs - Last 7 Days 06/15/21 10:02: POC Glucose 105 06/15/21 10:00: Carcinoembryonic Ag 2.5 06/15/21 10:00: PHA Creatinine Clear N/A, Sodium 141, Potassium 4.0, Chloride 102, Carbon Dioxide 27.8, BUN 10, Creatinine 0.86, Est GFR ( Amer) > 60, Est GFR (Non-Af Amer) > 60, Glucose 113 H, Calcium 8.9, Total Bilirubin 0.6, AST23, ALT 20, Alkaline Phosphatase 90, Total Protein 6.6, Albumin 3.2, Globulin 3.4, Albumin/Globulin Ratio 0.9 06/15/21 10:00: Corrected WBC 6.8, Uncorrected WBC Count 6.8, RBC 4.38, Hgb 12.6, Hct 37.3, MCV 85.0, MCH 28.7, MCHC 33.8, RDW 15.1, Plt Count 408, MPV 6.6,Neut % (Auto) 72.5, Lymph % (Auto) 17.4, Bowie % (Auto) 7.8, Eos % (Auto) 1.4, Baso % (Auto) 0.9, Neut # (Auto) 4.9, Lymph # (Auto) 1.2, Bowie # (Auto) 0.5, Eos# (Auto) 0.1, Baso # (Auto) 0.1, Nucleated RBC % (auto) 0.1 - Home Medications and Allergies Allergies/Adverse Reactions: Allergies RADHA Inhibitors Allergy (Verified 06/09/21 11:27) Unknown Reaction erythromycin base Allergy (Verified 06/09/21 11:27) Unknown Reaction rivaroxaban [From Xarelto] Allergy (Verified 06/09/21 11:27) Unknown Reaction tiotropium [From Spiriva with HandiHaler] Allergy (Verified 06/09/21 11:27) Unknown Reaction Home Medications: Home Medications albuterol sulfate 90 mcg/actuation aerosol inhaler (ProAir HFA) 2 puff INHALATION Q4H PRN 06/07/21 [History Confirmed 06/17/21] amiodarone 200 mg tablet 200 mg PO DAILY 06/07/21 [History Confirmed 06/17/21] amlodipine 5 mg tablet 5 mg PO DAILY 06/07/21 [History Confirmed 06/17/21] fluticasone 250 mcg-salmeterol 50 mcg/dose blistr powdr for inhalation (Advair Diskus) 1 inh INHALATION Q12H 06/07/21 [History Confirmed 06/17/21] hydrochlorothiazide 25 mg tablet 25 mg PO DAILY 06/07/21 [History Confirmed 06/17/21] levothyroxine 112 mcg tablet 112 mcg PO DIRECTED 06/07/21 [History Confirmed 06/17/21] levothyroxine 125 mcg tablet 125 mcg PO QMWF 06/07/21 [History Confirmed 06/17/21] montelukast 10 mg tablet 10 mg PO DAILY 06/07/21 [History Confirmed 06/17/21] lorazepam 0.5 mg tablet 0.5 mg PO BID PRN 30 Days #60 tab 06/09/21 [Rx Confirmed 06/17/21] ondansetron HCl 8 mg tablet 8 mg PO Q8H PRN #30 tab 06/17/21 [Rx] Dictated By: Bertha Christianson II, DO DD/ 1435 Signed By: <Electronically signed by Bertha Christianson II, DO> 06/26/21 1213 [facility] Work Phone: [phone]) 976-920509-10-2021 Consult note Author Jaime Solorio [facility] June 24, 2021 2:47pm Note Date/Time June 23, 2021 3:19pm [facility] [place] [id number] Rad Onc Consult Note - OP Signed Patient: Melida Valerio MR#: [id number] : 1940 Acct:[id number] Age/Sex: 81 / F Type: REG RCR Copies to: DO Joan Teague MD Nathan Samsa, DO Timothy J Adamowicz, II, DO~ HPI - Service Date/Time Date: 06/23/21 Time: 15:18 Diagnosis: 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 Chief Complaint: I have lung cancer HPI: 81-year-old female who is a ex-smoker with history of smoking 40 to 50pack years had prior diagnosis of left breast carcinoma in 2008 which was treated with lumpectomy and radiation therapy in [place], [place]. She was followed up here by Dr. Christianson at the [facility] outpatient clinic for many years and she was discharged few years ago from his clinic. She now had complaints of shortness of breath starting 2 to 3 months ago and in early May, she had complaints of right chest wall pain. She went to the ER at [facility] and a chest CT scan showed right midlung consolidation. She received antibiotic therapy but the right middle lobe mass did not resolve andsubsequently, she had bronchoscopy by Dr. Mccarty on 05/30/2021 and he found an endobronchial mass in the lateral segment of the right middle lobe. Biopsy confirmed on small cell carcinoma consistent with squamous cell carcinoma, moderate to poorly differentiated. The tumor was negative for TTF-1 and positive for p40. Patient's pulmonary function test in December 2020 showed a FEV1of 1.95 L in the right middle lobe only comprise 11% of the total lung capacity.She also had a 2 cm left adrenal nodule on the CT scan which could represent an metastases. She had a PET CT scan which again showed increased FDG uptake in the right middle lobe extending to the right hilar area. There is also questionable subcarinal uptake. Patient has been seen by Dr. Christianson and medical oncology consultation and I have been asked to see her regarding radiation oncology opinion. Her staging is incomplete at this point regarding her adrenal nodule and the subcarinal node and as per our discussion in the tumor conference on 06/25/2021, the consensus was for the patient to be referred to Dr. Johnson at [facility] for EBUS and subcarinal biopsies. She will have also evaluated for right middle lobectomy as patient is in reasonably good shape withgood pulmonary functions. She has dry cough but no hemoptysis and she has peripheral neuropathy. Her chest wall pain is relieved with intake of couple ofTylenols. She has no complaints of headaches, nausea, neck lumps, fevers, abdominal pain, urinary or bowel problems, vaginal bleeding or discharge, leg swelling, motor or sensory changes. 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 Nicotine dependence, cigarettes, in remission Pernicious anemia Primary insomnia - Surgical History Surgical History: Surgical History (Last Reviewed 06/23/21 @ 15:19 by Jaime Solorio MD) History of appendectomy History of hernia repair History of hysterectomy History of left breast biopsy History of tonsillectomy - Family History Family History: Family History (Last Reviewed 06/23/21 @ 15:19 by Jaime Solorio MD) Other Breast cancer Pancreatic cancer Prostate cancer - Social History Smoking Status: Former smoker Substance Use Type: None Home Medications & Allergies Allergies RADHA Inhibitors Allergy (Verified 06/09/21 11:27) Unknown Reaction erythromycin base Allergy (Verified 06/09/21 11:27) Unknown Reaction rivaroxaban [From Xarelto] Allergy (Verified 06/09/21 11:27) Unknown Reaction tiotropium [From Spiriva with HandiHaler] Allergy (Verified 06/09/21 11:27) Unknown Reaction Home Medications albuterol sulfate 90 mcg/actuation aerosol inhaler (ProAir HFA) 2 puff INHALATION Q4H PRN 06/07/21 [History Confirmed 06/17/21] amiodarone 200 mg tablet 200 mg PO DAILY 06/07/21 [History Confirmed 06/17/21] amlodipine 5 mg tablet 5 mg PO DAILY 06/07/21 [History Confirmed 06/17/21] fluticasone 250 mcg-salmeterol 50 mcg/dose blistr powdr for inhalation (Advair Diskus) 1 inh INHALATION Q12H 06/07/21 [History Confirmed 06/17/21] hydrochlorothiazide 25 mg tablet 25 mg PO DAILY 06/07/21 [History Confirmed 06/17/21] levothyroxine 112 mcg tablet 112 mcg PO DIRECTED 06/07/21 [History Confirmed 06/17/21] levothyroxine 125 mcg tablet 125 mcg PO QMWF 06/07/21 [History Confirmed 06/17/21] montelukast 10 mg tablet 10 mg PO DAILY 06/07/21 [History Confirmed 06/17/21] lorazepam 0.5 mg tablet 0.5 mg PO BID PRN 30 Days #60 tab 06/09/21 [Rx Confirmed 06/17/21] ondansetron HCl 8 mg tablet 8 mg PO Q8H PRN #30 tab 06/17/21 [Rx] Subjective ROS: I reviewed the 12-point Review of Systems with the patient as per our standard questionnaire. Objective Weight 93.6 kg Temp 97.8 F 06/23/21 14:30 Pulse 59 L 06/23/21 14:30 Resp 18 06/23/21 14:30 BP 173/67 H 06/23/21 14:30 Pulse Ox 97 06/23/21 14:30 Pain: 0/10 Emotional Needs Assessment: Emotional Needs Identified? No Karnofsky Performance Scale: 80%: Can perform normal activity with effort, some signs of disease Physical Exam: On physical examination today, she has regained, is an elderly, well oriented female who does not appear to be in any acute distress. HEENT examination revealed no cranial neuropathy. No palpable cervical or supra clavicle lymphadenopathy. Her breasts were not examined today but patient states that she had mammograms within the last year and they were reported negative. Her lungs are clear to auscultation. Cardiac examination is unremarkable. Abdomen is soft nontender and there is no palpable mass or organomegaly. Pelvic and rectal examination not done. She has no leg edema. She remains neurologically stable including her motor, sensory and cerebellar functions. 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 Assessment & Plan (1) 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 Plan: This 81-year-old female with prior history of left breast carcinoma treated with lumpectomy and radiation therapy in 2008 has no evidence of residual or recurrent disease in the breast. She now presented with recent diagnosis of moderately to poorly differentiated squamous cell carcinoma of the middle lobe right lung, clinical stage T2 N1 M0. She also has a 2 cm adrenal nodule and a questionable area in the subcarina and further metastatic work-up is needed. As per discussion in the tumor conference on 05/25/2021, patient is being referred to Dr. Johnson for a possible EBUS and subcarinal node biopsy and/or adrenal nodule biopsy. Dr. Christianson will make the referral to Dr. Johnson and she will be also assessed by her for right middle lobectomy. We shall await the final reports from Dr. Johnson before making any further recommendations regarding her primary or adjuvant radiation therapy treatments for her lung cancer. Total Time Spent with Patient: Greater than 30 minutes I spent 45 minutes [id number] time is patient and more than 50% of time allotted to patient education, answering questions, and coordinating care. N.B: Voice-recognition software was used in the creation of this note. Efforts were made to detect and correct typographical and/or grammatical errors; please excuse them should you find any. Dictated By: Jaime Solorio MD DD/ 1518 Signed By: <Electronically signed by Jaime Solorio MD> 06/24/21 9664 [facility] Work Phone: 1(712) 185-879508-26-2021 Progress note Author Bertha Christianson [facility] June 09, 2021 12:08pm Note Date/Time June 09, 2021 11 :38am [facility] [place] [id number] Hem/Onc Follow Up Note - OP Signed Patient: Melida Valerio MR#: [id number] : 1940 Acct:[id number] Age/Sex: 81 / F Type: REG RCR Copies to: DO Hiral Teague DO~ Date of Service: 06/09/2021 Time of Service: 11:37 - Assessment & Plan (1) Non-small cell lung cancer (NSCLC) Plan: Squamous cell carcinoma of the lung localized to the right side presumably. There is concern for an adrenal nodule, PET/CT may help further determine if this is neoplastic or not. I have to review CT images from [facility]. We will also get PET/CT to stage her fully and evaluate bones. We will check MRI brain. Referred to cardiothoracic surgery for further discussion. We will send additional testing on her tumor from [facility] which will include molecular testing for EGFR, PD-L1, ALK, MET,, ROS etc. History of localized breast cancer. She got radiation, did not get chemotherapy and refused adjuvant endocrine therapy. Continues to get mammograms and have been negative for active disease. Extremely strong family history for breast cancer. We will discussed the role of genetic testing further. She did not get genetic testing, as her sister had genetic testing and the patient has no biological children. Follow Up Instructions: PET/CT vanda. MRI brain with and without declined for now ativan 0.5mg po bid #60. Get last [address] report and images uploaded to our system from [facility]. Send tumor testing for [facility] or [facility] other molecular testing. Follow-up when PET/CT complete, check CBC, CMP, CEA at follow-up. - History of Present Illness HPI: 81-year-old female referred from Dr. Mccarty whom I previously followed at [facility] for breast cancer. Past medical history includes hypertension, chronic venous insufficiency, gastroesophageal reflux disease, type 2 diabetes, quit smoking in 1999, pernicious anemia, hypothyroidism, iron deficiency anemia, paroxysmal atrial fibrillation, hyperlipidemia, chronic bronchitis.. She had a hysterectomy and nephrectomy in her 20s for endometriosis. Outpatient medications include ProAir, levothyroxine, hydrochlorothiazide, amlodipine, montelukast, amiodarone. DEXA scan from 2018 shows osteopenia in the hip and normal in the spine echocardiogram from May 2019 shows ejection fraction of greater than 55%, no significant wall motion abnormalities and mild diastolic dysfunction. Slightly elevated right-sided pressures. No significant valvular abnormalities. She does have a sister with breast cancer in her 40s, mother sister had breast cancer in her 70s, mother's other sister had breast cancer in her 70s, mother had breast cancer in her 50s. Melida has 2 adopted children. She was diagnosed with ER/WA positive HER-2 negative breast cancer in 2009 at a hospital in [place]. She got adjuvant radiotherapy following lumpectomy. She did not get chemotherapy and refused adjuvant tamoxifen and has been monitored since. CAT scan of the chest from January 2017 showed no evidence of disease. She followed up with mammograms regularly and they were all normal. She had some short of breath since December 2020. In late April she noted a slight right upper quadrant pain. Worse with deep breathing. She went to ER on 05/16/21. She had XR with R sided consolidation. and A CT of the abdomen and pelvis from May 16, 2021 with IV contrast shows normallung bases, normal liver, pancreas, gallbladder, spleen. Left adrenal 2 cm nodule, normal kidneys, bladder, bowel, peritoneum. No enlarged lymph nodes. No abnormalities in the bones. She was admitted to the hospital and had CT chest next day which noted a large mass. Some dry irritating cough. She was discharged and f/u with dr. mccarty. She had a bronchoscopy on 05/30/[address] Mccarty. Found an endobronchial mass in the lateral segment of the right middle lobe. 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 Negative for TTF-1 and positive for P 40. She had pulmonary function studies in December 2020 with an FEV1 of 1.95 L in the right middle lobe only comprises 11% of the total lung capacity. She has not yet had PET/CT. - Physical Exam ECOG PS:0 General : patient is alert and oriented to person place and time, no acute distress. Neck: no JVD or thyromegaly. Lymph: no cervical, supraclavicular, axillary adenopathy. Heart: regular rate and rhythm no murmurs rubs or gallops. Abdomen: soft nontender nondistended, no hepatosplenomegaly. Lungs: clear to auscultation bilaterally. No wheezes, rales, rhonchi. Extremities: no clubbing cyanosis. trace bilateral edema L greater than right. - Time with Patient Coordination of Care & Counseling Time: Greater than 50% of time spent with patient was for coordination of care (as documented) and [id number] counseling of patient and/or family. 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 of inhaled steroids Nicotine dependence, cigarettes, in remission Pernicious anemia Primary insomnia - Surgical History Surgical History: Surgical History (Last Reviewed 06/09/21 @ 11:30 by Sunshine Lowe) History of appendectomy History of hernia repair History of hysterectomy History of left breast biopsy History of tonsillectomy - Family History Family History: Family History (Last Updated 06/09/21 @ 11:31 by Sunshine Lowe) Other Breast cancer Pancreatic cancer Prostate cancer Additional Data - Home Medications and Allergies Allergies/Adverse Reactions: Allergies RADHA Inhibitors Allergy (Verified 06/09/21 11:27) Unknown Reaction erythromycin base Allergy (Verified 06/09/21 11:27) Unknown Reaction rivaroxaban [From Xarelto] Allergy (Verified 06/09/21 11:27) Unknown Reaction tiotropium [From Spiriva with HandiHaler] Allergy (Verified 06/09/21 11:27) Unknown Reaction Home Medications: Home Medications albuterol sulfate 90 mcg/actuation aerosol inhaler (ProAir HFA) 2 puff INHALATION Q4H PRN 06/07/21 [History Confirmed 06/09/21] amiodarone 200 mg tablet 200 mg PO DAILY 06/07/21 [History Confirmed 06/09/21] amlodipine 5 mg tablet 5 mg PO DAILY 06/07/21 [History Confirmed 06/09/21] fluticasone 250 mcg-salmeterol 50 mcg/dose blistr powdr for inhalation (Advair Diskus) 1 inh INHALATION Q12H 06/07/21 [History Confirmed 06/09/21] hydrochlorothiazide 25 mg tablet 25 mg PO DAILY 06/07/21 [History Confirmed 06/09/21] levothyroxine 112 mcg tablet 112 mcg PO DIRECTED 06/07/21 [History Confirmed 06/09/21] levothyroxine 125 mcg tablet 125 mcg PO QMWF 06/07/21 [History Confirmed 06/09/21] montelukast 10 mg tablet 10 mg PO DAILY 06/07/21 [History Confirmed 06/09/21] Dictated By: Bertha Christianson II, DO DD/ 1137 Signed By: <Electronically signed by Bertha Christianson II, DO> 06/09/21 1208 [facility] Work Phone: Discharge summary Author Ramona Lee [facility] January 20, 2022 5:50pm Note Date/Time January 20, 2022 5:49 pm [facility] [address] [place] [address] Discharge Summary Signed Patient: Melida Valerio MR#: [id number] : 1940 Acct:[id number] Age/Sex: 81 / F Adm Date: 2 Loc: Room: [address] [place] [address]: Ramona Lee MD Copies to: DO Ramona Teague MD~ Providers Date of Discharge: 01/20/22 Discharging Provider: Ramona Lee Primary Care Provider: Wong Espino Consults: 01/16/22 17:49 Consult to Neurology Routine Consult to Oncology Routine 01/16/22 17:50 Consult to Speech Therapy Routine 01/17/22 17:06 Consult to Physical Therapy Routine OT [Consult to Occupational Therapy] Routine 01/19/22 05:00 MBS [Speech Therapy Modified Barium Swallow] IN AM 01/19/22 11:13 Consult to Gastroenterology Routine Discharge Diagnosis (1) Ptosis of eyelid, left: (2) Diplopia: (3) Generalized weakness: (4) Neuropathy: (5) History of breast cancer: Final Diagnosis Final Discharge Diagnosis: As above Summary Hospital Course Hospital course: This is 81-year-old female patient with history of lung cancer on immunotherapy,she presented with left sided eye ptosis associated with generalized weakness, weakness started about 2 to 3 weeks ago. She also had increased tremors in her upper extremities. The patient was evaluated emergency room. CTA of the head and neck did not show any acute stenotic lesions. Brain MRI with and without contrast not show any significant brain abnormality, chronic ischemic changes but no acute findings. Oncology and neurology were consulted. The etiology of eye ptosis was thought to be related to chemotherapy steroid effect, neuropathy or microvascular disease. The patient was initiated on high-dose steroids whichshowed some improvement of her left eye symptoms. Patient also was reporting problems with swallowing and bandlike pressure feeling around her chest and belly. She has problems swallowing. She was seen by speech therapy and MBS study showed esophageal dysmotility. GI was consulted. Underwent EGD which showed mild esophageal dysmotility which was dilated with a balloon and mild esophageal candidiasis and started on Diflucan. The patient is evaluated by PT/OT due to generalized weakness and noted to benefit from inpatient rehab. She has been accepted to the inpatient rehab unit at [facility] and was discharged in stable condition. Plan of discharge was discussed with oncology, Dr. Christianson recommended 2 weeksof prednisone 60 mg daily and to follow-up with him as an outpatient in 2 weeks Of note, the patient was recently diagnosed with C. difficile infection and is currently on vancomycin taper which was continued during hospital stay. She hadno significant signs of diarrhea or active C. difficile infection Condition Condition at Discharge: Stable Time Spent with Patient Time spent providing/coordinating discharge services (# min): 35 Surgeries and Procedures Operation Date: 01/20/22 11:20 Actual Procedures p DH EGD WITH DILATION (Not Applicable) - Yfn Whiting, DO Diagnostic Studies Completed and Pending Studies Pending studies at discharge: 01/18/22 17:43 [facility] Routine 01/20/22 05:[address] IN AM Labs on day of discharge: 01/20/22 05:50: Free T4 1.39 H, TSH 3rd Generation 1.96, Total Cortisol 3.2 Exam Physical Exam Vital Signs: Temp Pulse Resp BP Pulse Ox 97.8 F 85 16 152/80 H 98 01/20/22 16:00 01/20/22 16:00 01/20/22 16:00 01/20/22 16:00 01/20/22 16:00 Narrative: General: Awake, alert, oriented x3 not in acute distress Cardiovascular: Regular rate and rhythm , S1-S2 heard, no murmurs or gallops Lungs: No wheezing or rhonchi heard Gastrointestinal: Soft, nontender, bowel sounds heard Extremities: No edema Neurological: 5/5 strength in extremities, left eye ptosis, no other cranial pulses noted, symmetrical facial expressions otherwise, no focal motor deficit or sensory loss, pupils are reactive to light and symmetrical bilaterally Psych: Normal mood and affect Discharge Plan Discharge Plan Patient Disposition: Rehab [facility] Activity: Ambulate as Tolerated Diet: Regular Comment: See speech therapy recommendations below. Additional Instructions: Rehab to manage: -PT/OT to eval and treat -Monitor VS per protocol -High fall risk precautions -Routine assessments -Routine skin care and assessments -Continue oxygen at 2L NC---wean as tolerated. -Maintain and perform routine care to left chest infusaport. -Speech therapy recommendations: *Give pills in applesauce *Sit upright at 90 degrees during PO intake and meals *Small bites/sips *Alternate liquids and solids *Sit upright for 30 minutes after meals and snacks -Care to be managed by rehab providers. Prescriptions: New fluconazole 100 mg Tablet 100 mg PO QAM 6 Days Qty: 6 RF: 0 prednisone 10 mg Tablet 60 mg PO DAILY 14 Days Qty: 84 RF: 0 cyanocobalamin (vitamin B-12) 5,000 mcg capsule 5,000 mcg PO DAILY Qty: 30 RF: 0 Continued fluticasone propion-salmeterol [Advair Diskus] 250-50 mcg/dose Blister With Device 1 inh INHALATION Q12H RF: 0 amiodarone 200 mg Tablet 200 mg PO DAILY RF: 0 amlodipine 5 mg Tablet 5 mg PO DAILY RF: 0 levothyroxine 125 mcg Tablet 125 mcg PO QMWF RF: 0 hydrochlorothiazide 25 mg Tablet 25 mg PO DAILY RF: 0 albuterol sulfate [ProAir HFA] 90 mcg/actuation Hfa Aerosol Inhaler 2 puff INHALATION Q4H PRN (Reason: Dyspnea) RF: 0 levothyroxine 112 mcg Tablet 112 mcg PO DIRECTED RF: 0 potassium chloride 20 mEq Tablet Extended Release 20 meq PO DAILY Qty: 30 RF: 2 vancomycin 125 mg Capsule 125 mg PO DIRECTED Qty: 98 RF: 0 lorazepam 0.5 mg Tablet 0.5 mg PO HS PRN (Reason: Sleep) 30 Days Qty: 60 RF: 0 Follow Up: [facility] [Outside] - 01/31/22 9:00 am (with Justine CARTER and Dr Spaulding) Wong Espino DO [Primary Care Provider] - (Please arrange follow-up appointment once discharged from rehab. ) Bertha Christianson II, DO [Active Staff - D.O.] - (Please arrange follow-up appointment in 2 weeks once discharged from rehab. ) Yfn Whiting DO [Active Staff - D.O.] - (Please arrange follow-up appointmentonce discharged from rehab. ) Documented By: Ramona Lee MD 01/20/22 9873 Signed By: <Electronically signed by Ramona Lee MD> 01/20/22 1750 [facility] Work Phone: Discharge summary Author Dorian Thomason [facility] January 31, 2022 9:57am Note Date/Time January 31, 2022 9:5 7am [facility] [address] [place] [address] Discharge Summary Signed Patient: Melida Valerio MR#: [id number] : 1940 Acct:[id number] Age/Sex: 81 / F Adm Date: 2 Loc: Room: [address] [place] [address]: Dorian Thomason MD Copies to: DO Dorian Teague MD~ Providers Date of Discharge: 01/31/22 Discharging Provider: Dorian Thomason Primary Care Provider: Wong Espino Consults: 01/20/22 19:04 Consult to Oncology Routine 01/20/22 19:05 Consult to Neurology Routine 01/20/22 19:11 Consult to Adult Hospitalist Routine Consult to Dietitian Routine Consult to Occupational Therapy Routine Consult to Physical Therapy Routine Speech Admit Screen Routine Discharge Diagnosis (1) Ptosis of eyelid, left: (2) Generalized weakness: (3) Peripheral polyneuropathy: (4) Impaired mobility and activities of daily living: (5) Neuromuscular junction disorder: (6) Dysphagia: Final Diagnosis Final Discharge Diagnosis: as above Summary Hospital Course Hospital course: Ms. Valerio is a 81 year old female admitted to rehab with multifactorial functional decline in setting of NSCLC s/p chemoradiation and subsequent maintenance immunotherapy, which is now on hold. She presented directly form oncology with generalized weakness, difficulty caring for self, increased oxygen needs, noted to have some ptosis and dysphagia. Differential is broad and includes NMJ disorder. She's been treated with high dose steroids, to be maintained until outpatient f/u with oncology. She did have some dysphagia and underwent endoscopy with dilatation for esophageal spasm, noted to have mahendra esophagitis and placed on diflucan. She has recurrent c. diff, should have outpatient consult with Dr. Tran. Rehabilitation course: We will Tatian course notable for completion of a 5-day course of IVIG per neurology, as treatment for this neuromuscular junction type of process, which may be paraneoplastic versus immune therapy related. She did have some improvement after this treatment. She was able to walk about 150 feet and maintain good oxygen saturations, upon discharge from the rehab unit. She will be maintained on steroids and to follow-up with oncology in the outpatient setting. She did fail a nocturnal oxygen study and was discharged with home oxygen from [facility]. Otherwise, she was maintained on home medications. Further plan of care as it relates to her non-small cell lung cancer as per oncology. She is close outpatient follow-up with consulting physicians arranged. She would also benefit from dysphagia therapy in the outpatient setting, endoscopy did demonstrate esophageal spasm with Mahendra esophagitis which was treated. The etiology of her dysphagia may be multifactorial, Mahendra esophagitis, result of this neuromuscular problem, perhaps even a side effect ofradiation, if that was part of the radiation field. Condition Condition at Discharge: Stable Status at Discharge Functional status at discharge: uses cane/walker Overall status at discharge: patient is progressing back to baseline Time Spent with Patient Time spent providing/coordinating discharge services (# min): 41 Specific discharge activities: Total time spent discharging this patient > 30 minutes Greater than 30 minutes spent preparing the patient for discharge including the following: Discussion of the hospital stay with patient and/or family Instructions for continuing care to all relevant caregivers Reviewing discharge plan with medical staff, social work, care management, and nursing staff Supervision of discharge paperwork, medication reconciliation, prescriptions, and outpatient appointments Prescribed necessary DME at discharge when indicated She failed nocturnal oxygen study and was discharged with home oxygen from [facility]. Diagnosis is non-small cell lung cancer. Diagnostic Studies Completed and Pending Studies Pending studies at discharge: 01/23/22 14:53 Acetycholine Rec Abs AChR Routine Musk Antibody Test Routine Exam Physical Exam Vital Signs: Temp Pulse Resp BP Pulse Ox 97.6 F 84 16 143/80 H 94 L 01/31/22 04:50 01/31/22 04:50 01/31/22 04:50 01/31/22 04:50 01/31/22 04:50 Const General: cooperative and no acute distress Orientation: alert, awake and oriented x3 HEENT Head: abrasion and contusion Resp Effort & Inspection: normal respiratory effort Auscultation: clear to auscultation bilaterally GI Inspection: normal to inspection Neuro Cognition: normal cognition Speech: speech normal Gait: ataxic Motor: strength abnormal (4/5 RUE, LLE) Sensory Exam: other (abnormal stocking glove distribution) Discharge Plan Discharge Plan Patient Disposition: Home Health [facility] Activity: Ambulate as Tolerated Comment: Weight bearing as tolerated. Diet: Regular Additional Instructions: -Code status: Full code. -Diet: Regular diet. -Activity: Weight bearing as tolerated, no driving until cleared by physician, may ride in car. -Eating strategies: Sit upright at 90 degrees with oral intake, small bites/sips, alternate liquids/solids, sit upright for 30 minutes after eating. -Take pills whole in applesauce. -Oxygen: Wear 2 liters of oxygen via nasal cannula. Your home oxygen supplier [employer] ( ). They will deliver the home oxygenconcentrator to your home this afternoon. Your Home Health agency is [facility] ( ). They will usually contact you the day after discharge to schedule a day/time to meet with you at your home to establish care. You have been given prescriptions for new and/or needed medications. These prescriptions are for a one-time fill only, with no re-fills. For further re- fills going forward, you will need to address with your PCP at your follow up appointment, or by calling your PCP?s office prior to the prescriptions running out. NOTE: please call within 24 hours if you need to cancel or change any follow up appointments. Arrive early to all follow up appointments, bring current medication list, photo ID and any insurance card(s) to all future follow ups (listed below). Please remember to wear a mask to all appointments. If you develop any symptoms (cough, fever/chills, shortness of breath, sore throat, nausea/vomiting, etc.) please contact your provider's office to inform them prior to your appointment. Instructions: Oxygen Therapy, Adult (DC) Prescriptions: New fluconazole 100 mg Tablet 100 mg PO QAM 5 Days Qty: 5 RF: 0 amiodarone 200 mg Tablet 200 mg PO DAILY 30 Days Qty: 30 RF: 0 cyanocobalamin (vitamin B-12) 1,000 mcg Tablet 1,000 mcg PO DAILY 30 Days Qty: 30 RF: 0 amlodipine 5 mg Tablet 5 mg PO DAILY 30 Days Qty: 30 RF: 0 albuterol sulfate [Ventolin HFA] 90 mcg/actuation Hfa Aerosol Inhaler 2 puff inhalation Q4H PRN (Reason: Dyspnea) 30 Days Qty: 1 RF: 0 fluticasone propion-salmeterol 113-14 mcg/actuation Aerosol Powdr Breath Activated 1 puff inhalation Q12HR 30 Days Qty: 1 RF: 0 prednisone 20 mg Tablet 60 mg PO DAILY 30 Days Qty: 90 RF: 0 aspirin 81 mg Tablet,Delayed Release (Dr/Ec) 81 mg PO DAILY 30 Days Qty: 30 RF: 0 acetaminophen 500 mg Tablet 500 mg PO Q4H PRN (Reason: Pain) Qty: 0 RF: 0 potassium chloride [Klor-Con M20] 20 mEq Tablet,Er Particles/Crystals 20 meq PO DAILY 30 Days Qty: 30 RF: 0 lorazepam 0.5 mg Tablet 0.5 mg PO HS PRN (Reason: Sleep) Qty: 0 RF: 0 levothyroxine 125 mcg Tablet 125 mcg PO [id number]@[id number] 30 Days Qty: 13 RF: 0 hydrochlorothiazide 25 mg Tablet 25 mg PO DAILY 30 Days Qty: 30 RF: 0 levothyroxine [Synthroid] 112 mcg Tablet 112 mcg PO [id number]@0630 30 Days Qty: 18 RF: 0 Discontinued fluticasone propion-salmeterol [Advair Diskus] 250-50 mcg/dose Blister With Device 1 inh INHALATION Q12H RF: 0 amiodarone 200 mg Tablet 200 mg PO DAILY RF: 0 amlodipine 5 mg Tablet 5 mg PO DAILY RF: 0 levothyroxine 125 mcg Tablet 125 mcg PO QMWF RF: 0 hydrochlorothiazide 25 mg Tablet 25 mg PO DAILY RF: 0 albuterol sulfate [ProAir HFA] 90 mcg/actuation Hfa Aerosol Inhaler 2 puff INHALATION Q4H PRN (Reason: Dyspnea) RF: 0 levothyroxine 112 mcg Tablet 112 mcg PO DIRECTED RF: 0 potassium chloride 20 mEq Tablet Extended Release 20 meq PO DAILY Qty: 30 RF: 2 vancomycin 125 mg Capsule 125 mg PO DIRECTED Qty: 98 RF: 0 lorazepam 0.5 mg Tablet 0.5 mg PO HS PRN (Reason: Sleep) 30 Days Qty: 60 RF: 0 fluconazole 100 mg Tablet 100 mg PO QAM 6 Days Qty: 6 RF: 0 prednisone 10 mg Tablet 60 mg PO DAILY 14 Days Qty: 84 RF: 0 cyanocobalamin (vitamin B-12) 5,000 mcg capsule 5,000 mcg PO DAILY Qty: 30 RF: 0 Other Ambulatory Orders: Initiate Home Health (Routine) Timeframe: 20220127 Location: Determined by Patient Ordered By: Dorian TEJADA Home Medical Equipment (Routine) Timeframe: 20220131 Location: Determined by Patient Ordered By: Dorian Thomason Follow Up: [facility] [Outside] - 02/20/22 9:00 am (with Justine CARTER & ) Tapan Tran MD [Active Staff] - (Referral follow up for recurrent C Diff. Please call office to schedule. ) Wong Espino DO [Primary Care Provider] - 02/03/22 10:30 am (-PCP.) Bertha Christianson II, DO [Active Staff - D.O.] - 02/24/22 10:00 am (- Oncologist.) fYn Whiting DO [Active Staff - D.O.] - 04/19/22 2:45 pm (- Tile Erector.) Dorian Thomason MD [Active Staff] - (-Rehab Physician. Follow up if/as needed.) Documented By: Dorian Thomason MD 01/31/2252 Signed By: <Electronically signed by Dorian Thomason MD> 01/31/22 0988 [facility] Work Phone: Evaluation note* Diagnosis Onset Date Resolution Status Clostridium difficile infection acute History of breast cancer acu te 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 acute Neuropathy acute Non-small cell lung cancer (NSCLC) acute [facility] Work Phone: Evaluation note* Diagnosis Onset Date Resolution Status Clostridium difficile infection acute Generalized weakness acute History of breast cancer acu te 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 acute Neuropathy acute Non-small cell lung cancer (NSCLC) acute Ptosis of eyelid, left acute Clostridium difficile infection acute Diplopia acute Dysphagia acute Epigastric pain acute Generalized weakness acute History of breast cancer acu te 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 acute Neuropathy acute Non-small cell lung cancer (NSCLC) acute Ptosis of eyelid, left acute [facility] Work Phone: Evaluation note* Diagnosis Onset Date Resolution Status Clostridium difficile infection acute Generalized weakness acute History of breast cancer acu te 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 acute Neuropathy acute Non-small cell lung cancer (NSCLC) acute Ptosis of eyelid, left acute Clostridium difficile infection acute Diplopia acute Dysphagia acute Epigastric pain acute Generalized weakness acute History of breast cancer acu te 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 acute Neuropathy acute Non-small cell lung cancer (NSCLC) acute Ptosis of eyelid, left acute Mahendra esophagitis acute Clostridium difficile infection acute Diplopia acute Dysphagia acute Essential hypertension acute Generalized weakness acute History of breast cancer acu te Impaired mobility and activities of daily living acute 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 acute Minor closed head injury acu te Neuropathy acute Non-small cell lung cancer (NSCLC) acute Peripheral polyneuropathy ac [place] Ptosis of eyelid, left acute [facility] Work Phone: Evaluation note* Diagnosis Onset Date Resolution Status Clostridium difficile infection acute Diplopia acute Dysphagia acute Epigastric pain acute Generalized weakness acute History of breast cancer acu te 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 acute Neuropathy acute Non-small cell lung cancer (NSCLC) acute Ptosis of eyelid, left acute Mahendra esophagitis acute Clostridium difficile infection acute Diplopia acute Dysphagia acute Essential hypertension acute Generalized weakness acute History of breast cancer acu te Impaired mobility and activities of daily living acute 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 acute Minor closed head injury acu te Neuropathy acute Non-small cell lung cancer (NSCLC) acute Peripheral polyneuropathy ac [place] Ptosis of eyelid, left acute Clostridium difficile infection acute Generalized weakness acute History of breast cancer acu te 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 acute Neuropathy acute Non-small cell lung cancer (NSCLC) acute Ptosis of eyelid, left acute [facility] Work Phone: Evaluation note* Diagnosis Onset Date Resolution Status Clostridium difficile infection acute Generalized weakness acute History of breast cancer acu te 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 acute Neuropathy acute Non-small cell lung cancer (NSCLC) acute Ptosis of eyelid, left acute [facility] Work Phone: Evaluation note* Diagnosis Diplopia- Primary [facility] Other [facility]* Diagnosis Onset Date Resolution Status Non-small cell lung cancer (NSCLC) acute Clostridium difficile infection acute Generalized weakness acute History of breast cancer acu te 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 acute Neuropathy acute Non-small cell lung cancer (NSCLC) acute Ptosis of eyelid, left acute [facility] Work Phone: Evaluation note* Diagnosis Paroxysmal atrial fibrillation (Multi)- Primary Atrial fibrillation Essential hypertension, benign High risk medication use High risk medication use documented in this encounter [facility] Work Phone: Evaluation note* Diagnosis High risk medication use documented in this encounter [facility] Work Phone: Evaluation note* Diagnosis Onset Date Resolution Status Clostridium difficile infection acute Generalized weakness acute History of breast cancer acu te 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 acute Non-small cell lung cancer (NSCLC) acute Ptosis of eyelid, left acute Atrial fibrillation acute Chronic bronchitis acute Chronic kidney disease acute Essential hypertension acute SKYLAR (generalized anxiety disorder) acute History of breast cancer acu te Hypothyroid acute Type 2 diabetes mellitus with hyperglycemia acute [facility] Work Phone: Evaluation note* Diagnosis Onset Date Resolution Status Atrial fibrillation acute Chronic bronchitis acute Chronic kidney disease acute Essential hypertension acute SKYLAR (generalized anxiety disorder) acute History of breast cancer acu te Hypothyroid acute Type 2 diabetes mellitus with hyperglycemia acute Clostridium difficile infection acute Generalized weakness acute History of breast cancer acu te 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 acute Non-small cell lung cancer (NSCLC) acute Ptosis of eyelid, left acute [facility] Work Phone: Evaluation note* Diagnosis Onset Date Resolution Status Atrial fibrillation acute Chronic bronchitis acute Chronic kidney disease acute Essential hypertension acute SKYLAR (generalized anxiety disorder) acute History of breast cancer acu te Hypothyroid acute Type 2 diabetes mellitus with hyperglycemia acute Clostridium difficile infection acute Generalized weakness acute History of breast cancer acu te 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 acute Non-small cell lung cancer (NSCLC) acute Ptosis of eyelid, left acute Non-small cell lung cancer (NSCLC) acute [facility] Work Phone: Evaluation note* Diagnosis Onset Date Resolution Status Atrial fibrillation acute Chronic bronchitis acute Chronic kidney disease acute Essential hypertension acute SKYLAR (generalized anxiety disorder) acute History of breast cancer acu te Hypothyroid acute Type 2 diabetes mellitus with hyperglycemia acute Non-small cell lung cancer (NSCLC) acute Clostridium difficile infection acute Generalized weakness acute History of breast cancer acu te 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 acute Non-small cell lung cancer (NSCLC) acute Ptosis of eyelid, left acute [facility] Work Phone: Evaluation note* Diagnosis Onset Date Resolution Status Non-small cell lung cancer (NSCLC) acute Clostridium difficile infection acute Generalized weakness acute History of breast cancer acu te 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 acute Non-small cell lung cancer (NSCLC) acute Ptosis of eyelid, left acute [facility] Work Phone: Evaluation note* Diagnosis Diplopia [facility] Diagnosis Onset Date Resolution Status Non-small cell lung cancer (NSCLC) acute Essential hypertension acute Shingles acute Clostridium difficile infection acute Generalized weakness acute History of breast cancer acu te 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 acute Non-small cell lung cancer (NSCLC) acute Ptosis of eyelid, left acute [facility] Work Phone: Evaluation note* Diagnosis Onset Date Resolution Status Non-small cell lung cancer (NSCLC) acute Essential hypertension acute Shingles acute Clostridium difficile infection acute Generalized weakness acute History of breast cancer acu te 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 acute Non-small cell lung cancer (NSCLC) acute Ptosis of eyelid, left acute Pernicious anemia acute [facility] Work Phone: Evaluation note* Diagnosis Malignant neoplasm of lung, unspecified laterality, unspecified part of lung ([facility]-HCC)- Primary Port-A-Cath in place [facility] Diagnosis Intermediate stage nonexudative age-related macular degeneration of both eyes- Primary Diplopia Optic atrophy Unspecified optic atrophy Dry eyes Unspecified tear film insufficiency [facility] Diagnosis Malignant neoplasm of lung, unspecified laterality, unspecified part of lung (CMS-HCC)- Primary Port-A-Cath in place [facility]* Diagnosis Persistent atrial fibrillation (Multi)- Primary Atrial fibrillation Paroxysmal atrial fibrillation (Multi) Atrial fibrillation High risk medication use Essential hypertension Unspecified essential hypertension SOB (shortness of breath) on exertion Shortness of breath Former smoker Personal history of tobacco use, presenting hazards to health Chronic obstructive pulmonary disease, unspecified COPD type (Multi) documented in this encounter [facility] Work Phone: Evaluation note* Diagnosis Malignant neoplasm of lung, unspecified laterality, unspecified part of lung ([facility]-HCC)- Primary Port-A-Cath in place [facility]* Diagnosis Onset Date Resolution Status Admit Date Atrial fibrillation acute January 27, 2025 2:48pm Chronic bronchitis acute January 27, 2025 2:48pm Chronic kidney disease acute Ap ril 2024 2:48pm Essential hypertension acute Ap ril 2024 2:48pm SKYLAR (generalized anxiety disorder) acute January 27, 2025 2:48pm History of breast cancer acute January 27, 2025 2:48pm Hypothyroid acute January 27, 2 025 2:48pm Type 2 diabetes mellitus wit h hyperglycemia acute January 27, 2025 2:48pm [facility] Work Phone: Evaluation note* Diagnosis Malignant neoplasm of lung, unspecified laterality, unspecified part of lung (CMS-HCC)- Primary Port-A-Cath in place [facility]* Diagnosis Persistent atrial fibrillation (Multi) Atrial fibrillation documented in this encounter [facility] Work Phone: Evaluation note* Diagnosis Malignant neoplasm of lung, unspecified laterality, unspecified part of lung (CMS-HCC)- Primary Port-A-Cath in place [facility]* Diagnosis Intermediate stage nonexudative age-related macular degeneration of both eyes- Primary Optic atrophy Unspecified optic atrophy Dry eyes Unspecified tear film insufficiency Diplopia [facility]* Diagnosis Onset Date Resolution Status Admit Date Acute thoracic back pain acute June 01, 2025 1:40pm Atrial fibrillation acute Augus t 2024 1:40pm Chronic bronchitis acute June 01, 2025 1:40pm Chronic kidney disease acute [place] [facility] 2024 1:40pm Essential hypertension acute [facility] 2024 1:40pm SKYLAR (generalized anxiety disorder) acute June 01 1:40pm History of breast cancer acute June 01, 2025 1:40pm Hypothyroid acute June 01, 2025 1:40pm 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 acute June 01, 2025 1:40pm Type 2 diabetes mellitus wit h hyperglycemia acute June 01 1:40pm [facility] Work Phone: History general Narrative - Reported* Type Description Date Medical History Esophageal spasm Medical History Dysphagia Medical History Pernicious anemia Medical History Sixth nerve palsy of right eye Medical History History of breast cancer Medical History Primary malignant ne oplasm of right lung metastatic to other site Medical History Chronic respiratory failure with hypoxia Medical History Chronic venous insufficiency Medical History SKYLAR (generalized anxiety disorde r) Medical History Paroxysmal atrial fibrillation Medical History Primary hypertension Medical History Adenomatous polyp of colon, unsp ecified part of colon Medical History Controlled type 2 di abetes mellitus with hyperglycemia, without long-term current use of insulin Medical History Estrogen deficiency Surgical History APPENDECTOMY 2019 Surgical History CATARACT EXTRACTION - BILATERAL 2019 Surgical History CHOLECYSTECTOMY 2019 Surgical History EGD Surgical History HERNIA REPAIR Surgical History COLONOSCOPY Surgical History BRONCHOSCOPY Surgical History BUNIONECTOMY- RIGHT FOOT Surgical History HYSTERECTOMY Surgical History BIOPSY,ADRENAL GLAD, PERCUTANEO US NEEDLE Hospitalization History SEE SURGICAL HX [place] Other History of Present illness Narrative* Oncology- Dr. Bertha Christianson * Pulmonary- Dr. Mccarty * This is a telephone visit due to the COVID-19 Pandemic * CC: lung mass * 81 yo F past smoker 40 pack years quit in 1999, here referred by Dr. Christianson for Bronch with EBUSfor mediastinal staging. * Patient on phone with nearby. * Has history of Left breast cancer 2000 s/p lumpectomy and radiation. * Per [facility] referral- patient had dyspnea since December 2020, in late April had RUQ pain worse with deep breathing, went to ER and found to have R consolidation, additional imaging found 2 cm adrenal nodule on left, and CT chest with RML mass. * Given RML lesion had bronch with GA at [facility] with [employer] Dr. Mccarty 05/31/2021, found to have squamous cell carcinoma. Needs Bronch for EBUS staging. Just had adrenal gland biopsy today- awaiting results, and did well with procedure. * ROS: no fevers, chills, nausea, emesis, chest pain, palpitations, has chronic dyspnea and occasional cough from COPD, nothing worse or new, Other ROS reviewed and negative for complaints. * PMhx: COPD on inhalers, HTN, PVD, GERD, DM2, pernicious anemia, hypothyroidism, FABRIZIO, Atrial Fibrillation, HLP, chronic bronchitis, Allergic Rhinitis, Hypothyroidism * Surgical Hx: Hysterectomy and nephrectomy in her 20s for endometriosis; Left lumpectomy for prior breast cancer; Appendectomy, Hernia repair, tonsillectomy; no GA complications * Fhx: Breast cancer in mom, sister, and aunt; maternal grandfather prostate; father was a smoker andhad COPD; no lung cancer * Social Hx: , was a smoker quit in 1999 * 40 years less than or equal to 1 ppd * Had recent CBC and BMP ok; will get Coags for procedure [facility] Work Phone: History of Present illness Narrative* Patient returns in follow-up of problems as noted. From a cardiac standpoint she is doing well and she denies angina CHF arrhythmia or neurologic symptomatology. Sinus rhythm is maintained with amiodarone and recent amiodarone testing is favorable. She was recently diagnosed, though, with cancer and she is about to undergo therapy. She is stage II. We reviewed charts and it appears that in December she had no evidence of malignancy but it was picked up thereafter. * We discussed her stroke risk associate with atrial fibrillation. Sinus rhythm is maintained but there is some residual stroke risk and this was commented on but because of her problems in the past with significant gastrointestinal bleeding she is not interested in resuming antithrombotic therapy. Ibelieve this to be reasonable. Blood pressure appears to be adequately controlled because of this we suggest no changes in therapy. The merits of diet and weight loss were also touched on. [facility] 600 DO Work Phone: History of Present illness Narrative* Patient returns in follow-up of problems as noted. In the interim she has continued to be dyspneic.Her evaluation has been unrevealing. Stress test proved to be normal demonstrating no ischemia no infarct and normal ejection fraction. Sinus rhythm is maintained. Pulmonary function studies demonstrate advanced COPD but no diffusion abnormality that would suggest pulmonary fibrosis. Because of this we believe the high risk medication amiodarone can be continued. Her hypertension appears to be acceptably managed. I advised her and her daughter that I am suspicious that the problem is probably on the basis of her lung disease (COPD) or possibly some sort of adverse effect from her chemotherapy radiation and immunotherapy. They acknowledge she had a wide variety of side effects and problems related to immunotherapy and a lot of her complaints could ultimately be on the basis of this episodeof care. * Nonetheless we will make certain that there is no underlying cardiomyopathy as a cause of shortnessof breath because if there was further pharmacologic intervention would be possible. For the time being, though, we will attempt an adjustment of diuretic therapy to see if there is improvement. Thiazides will be stopped and spironolactone substituted to see if this improves her symptomatology. I also proposed a reduction in amiodarone because of a mild tremor. [facility] Work Phone: History of Present illness Narrative* Patient returns in follow-up of problems as noted. In the interim she has continued to be dyspneic.Her evaluation has been unrevealing. Stress test proved to be normal demonstrating no ischemia no infarct and normal ejection fraction. Sinus rhythm is maintained. Pulmonary function studies demonstrate advanced COPD but no diffusion abnormality that would suggest pulmonary fibrosis. Because of this we believe the high risk medication amiodarone can be continued. Her hypertension appears to be acceptably managed. I advised her and her daughter that I am suspicious that the problem is probably on the basis of her lung disease (COPD) or possibly some sort of adverse effect from her chemotherapy radiation and immunotherapy. They acknowledge she had a wide variety of side effects and problems related to immunotherapy and a lot of her complaints could ultimately be on the basis of this episodeof care. * Nonetheless we will make certain that there is no underlying cardiomyopathy as a cause of shortnessof breath because if there was further pharmacologic intervention would be possible. For the time being, though, we will attempt an adjustment of diuretic therapy to see if there is improvement. Thiazides will be stopped and spironolactone substituted to see if this improves her symptomatology. I also proposed a reduction in amiodarone because of a mild tremor. [facility] Work Phone: History of Present illness Narrative* dyspnea improves with inhaler * Patient returns in follow-up of problems as noted. From a cardiology standpoint she is doing well. He has had no breakthroughs or paroxysms of atrial fibrillation I presume control to be good on amiodarone. Amiodarone treatment was discussed and the importance of surveillance explained. I reviewed with her her most recent pulmonary function studies, chest x-ray, and lab and they are all satisfactory and because of this we see no side effects from this high risk medication. She does have hypothyroidism but this may have preceded the implementation of amiodarone therapy. * She does have some shortness of breath. Her pulmonary function studies did not suggest pulmonary fibrosis but she does have findings consistent with COPD and/or reactive airway disease and she acknowledges improvement with inhaler because of this I recommended to her that most of this is probably pulmonary dyspnea and not cardiac. Nonetheless we suggest to continue diuretic therapy as before because of the edema of lower extremities because she did recognize some improvement after these medications were implemented. -[facility] 250 DO Work Phone: [facility] Work Phone: Hospital Discharge instructions Additional Instructions Rehab to manage: -PT/OT to eval and treat -Monitor VS per protocol -High fall risk precautions -Routine assessments -Routine skin care and assessments -Continue oxygen at 2L NC---wean as tolerated. -Maintain and perform routine care to left chest infusaport. -Speech therapy recommendations: *Give pills in applesauce *Sit upright at 90 degrees during PO intake and meals *Small bites/sips *Alternate liquids and solids *Sit upright for 30 minutes after meals and snacks -Care to be managed by rehab providers.[facility] Work Phone: Hospital Discharge instructions Additional Instructions No driving if taking narcotic pain medicationKettering Health Main Campus Ctr Work Phone: InstructionsNot on filedocumented in this encounter [facility] filedocumented in this encounter [facility]ructionsNot on filedocumented in this encounter [facility]ructionsNot on filedocumented in this encounter [facility] SystemInstructionsNot on filedocumented in this encounter [facility] SystemProgress note Author Bertha Christianson [facility] April 10, 2022 10:58am Note Date/Time April 10, 2022 10:5 3am [facility] [place] [address] Hem/Onc Follow Up Note - OP Signed Patient: Melida Valerio MR#: [id number] : 1940 Acct:[id number] Age/Sex: 81 / F Type: REG RCR Copies to: Wong Espino,ATIYA Johnson Date of Service: 04/10/2022 Time of Service: 10:52 - Assessment & Plan (1) 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 Plan: 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 Stage IIB negative EBUS, negative adrenal nodule biopsy Completed concurrent chemoradiation for her cancer carboplatin and paclitaxol jul through sep 2021. followed by maintenance durvalumab. Started maintenance durvalumab (received 2 doses - 2 weeks apart) 10 mg/kg dosing- given 10/26/2021 and 11/09/2021. PET/CT 11/2021 [place]. -- therapy changed to monthly dosing (Q 4 weeks - 1500 mg) - received 1 dose on:12/07/2021 Currently being held for concern for immunotherapy related neurologic toxicity. 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 Brain MRI was essentially negative; with no evidence of intracranial metastasis or other acute changes. She had hospitalization for this including prolonged stay in the TCU. Ultimately she is discharged home and is getting stronger maintains prednisone 40 mg p.o. daily as of 02/24/2022. She also has a history of severe and recurrent C. difficile infection. Follow Up Instructions: drop prednisone to 10mg daily pfts at [facility] refer back to Ivory Mccarty. F/u 1 month. cbc, cmp, cea, copper, magnesium prior. - History of Present Illness Chief Complaint: Patient is here for a 6 week follow up with labs for review. Patient states that she is more short of breath than usual. She will also see radiation oncology today. No other concerns voiced at this time. HPI: 81-year-old female referred from Dr. Mccarty whom I previously followed at [facility] for breast cancer. Past medical history includes hypertension, chronic venous insufficiency, gastroesophageal reflux disease, type 2 diabetes, quit smoking in 1999, pernicious anemia, hypothyroidism, iron deficiency anemia, paroxysmal atrial fibrillation, hyperlipidemia, chronic bronchitis.. She had a hysterectomy and nephrectomy in her 20s for endometriosis. Outpatient medications include ProAir, levothyroxine, hydrochlorothiazide, amlodipine, montelukast, amiodarone. DEXA scan from 2018 shows osteopenia in the hip and normal in the spine echocardiogram from May 2019 shows ejection fraction of greater than 55%, no significant wall motion abnormalities and mild diastolic dysfunction. Slightly elevated right-sided pressures. No significant valvular abnormalities. She does have a sister with breast cancer in her 40s, mother sister had breast cancer in her 70s, mother's other sister had breast cancer in her 70s, mother had breast cancer in her 50s. Melida has 2 adopted children. She was diagnosed with ER/WA positive HER-2 negative breast cancer in 2009 at a hospital in [place]. She got adjuvant radiotherapy following lumpectomy. She did not get chemotherapy and refused adjuvant tamoxifen and has been monitored since. CAT scan of the chest from January 2017 showed no evidence of disease. She followed up with mammograms regularly and they were all normal. She had some short of breath since December 2020. In late April she noted a slight right upper quadrant pain. Worse with deep breathing. She went to ER on 05/16/21. She had XR with R sided consolidation. and A CT of the abdomen and pelvis from May 16, 2021 with IV contrast shows normallung bases, normal liver, pancreas, gallbladder, spleen. Left adrenal 2 cm nodule, normal kidneys, bladder, bowel, peritoneum. No enlarged lymph nodes. No abnormalities in the bones. She was admitted to the hospital and had CT chest next day which noted a large mass. Some dry irritating cough. She was discharged and f/u with dr. mccarty. She had a bronchoscopy on 05/30/[address] Mccarty. Found an endobronchial mass in the lateral segment of the right middle lobe. 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 Negative for TTF-1 and positive for P 40. She had pulmonary function studies in December 2020 with an FEV1 of 1.95 L in the right middle lobe only comprises 11% of the total lung capacity. She has not yet had PET/CT. had EBUS Dr. JOHNSON. Nodes all negative adrenal biopsy negative. PET/CT with disease localized, few nodes curious. 10/17/2021: Patient reports for post treatment follow up visit. 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 Towards the end of treatment she was diagnosed with C diff colitis treated first with oral Vancomycin and then Flagyl. Clinically, she is much improved. No further episodes of diarrhea. She appears non toxic. She is approximately 1 month out from treatment; she reports no significant or new issues other than dry, sometimes productive cough. Worse during the day; denies shortness of breath, sputum production, dysphagia, fever/chills, or hemoptysis. Plan to initiate maintenance Durvalumab as soon as insurance approves. She will need post treatment scan, as well. Will arrange for PET/CT scan in ~ 5 weeks with follow up thereafter. 11/09/21 she is feeling much better today, has not had diarrhea in 2 days. almost feels like she may be getting constipated she admits to not staying hydrated today and yesterday, so we encouraged her to push more fluids, which may help with her bowels as well she denies any other complaints, tolerating the fidaxomycin well energy is much improved and she is cooking again will get durvalumab today 11/29/21 she has some chest soreness, some cough. overall doing well. PET/CT with great outcome. 11/28/21 NO RESIDUAL RIGHT MIDDLE LOBE MASS OR PATHOLOGIC ADENOPATHY. SUBCUTANEOUS NODULE IN THE RIGHT LABIAL REGION, POSSIBLYA SEBACEOUS CYST. CLINICAL CORRELATION IS RECOMMENDED. on durvalumab x 1 month. will continue for 12 month. pooping is good. She does not have any more diarrhea. 01/16/2022: Melida is here for add on visit due to multiple issues prior to next cycle of maintenance Durvalumab. 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 The patient reports a rather complicated clinical course over the past several weeks. To briefly summarize, the patient reportedly had a fall at home on 11/14/2021. The patient's family reports that approximately 3 weeks after she fell; and ~ 2-3 days after last immunotherapy; she began having a multitude of complaints including headaches, dizziness, balance issues, trouble swallowing and progressive weakness in extremities x 4. The patient is markedly fatigue, reports she is not even able to bathe or dress herself; can no longer ambulate and essentially cannot do any regular ADL's that she was doing a few months ago.Of note, the patient is usually with robust performance status and this is clearly a deviation of her baseline. She reports worsening dyspnea/shortness of breath; hard to feel like she is getting adequate air. She also reports a severely dry mouth and has obvious unilateral ptosis of the left eye. 02/24/22 She is doing better. She has dizziness. She is in a wheelchair today. She is scheduled for an EMG but she thinks she may cancel. Her breathing is better but still notes short of breath. Improved with albuterol inhaler. She is now able to get up and use a walker to get to the bathroom and she lays in bed and gets dressed. She notes her R arm continues to feel very heavy. Sheis just ambulating some finally with the walker this week with great difficulty. She has a lot of shaking in her R arm and cant hold her coffee or a spoon with peas on it. She continues on prednisone 40mg daily. 04/10/22 she is now prednisone 20mg. She has been on this for about two weeks. SHe complains still of shortness of breath. She follows with Dr. Mccarty but hasnt seen him in a while. She is in wheelchair again today. Still some L eye droop. She maintains on amiodarone, follows with Dr. Cadena. uses a walker, mobility is improving but still needs some help even with a walker. She continues to do her exercises daily. - Physical Exam ECOG PS: 0 General : patient is alert and oriented to person place and time, no acute distress. L eye ptosis marginally improved again. . Neck: no JVD or thyromegaly. Lymph: no cervical, supraclavicular, axillary adenopathy. Heart: regular rate and rhythm no murmurs rubs or gallops. Abdomen: soft nontender nondistended, no hepatosplenomegaly. Lungs: cta bl, no wheezes, rales, rhonchi Extremities: no clubbing cyanosis. RUE still a bit clumsy and 5/5 strength. - Time with Patient Coordination of Care & Counseling Time: Greater than 50% of time spent with patient was for coordination of care (as documented) and nmzw-no-stxs counseling of patient and/or family. 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 Nicotine dependence, cigarettes, in remission Pernicious anemia Primary insomnia - Surgical History Surgical History: Surgical History (Last Reviewed 01/21/22 @ 18:43 by NADEEM Foy) History of appendectomy History of hernia repair History of hysterectomy History of left breast biopsy History of tonsillectomy - Family History Family History: Family History (Last Reviewed 01/21/22 @ 18:43 by Tonya Balderrama NP-C) Other Breast cancer Pancreatic cancer Prostate cancer - Social History Smoking Status: Former smoker Tobacco Type: cigarettes Substance Use Type: None Additional Data - Additional Objective Data Height/Weight: Height 5 ft 5 in Weight 87.453 kg BSA for Today's Weight 2.04 Vital Signs: 04/10/22 10:10 Temperature 97.8 F Pulse Rate [Left Brachial] 67 Respiratory Rate 18 Blood Pressure [Left Arm] 120/57 L 02 Sat by Pulse Oximetry 98 Distress Screening: RN Distress Screening Start: 06/09/21 11:10 Freq: Status: Complete Protocol: Document 06/23/21 14:32 DB (Rec: 06/23/21 14:32 DB [id number]) Distress Screening Distress Score: 0 No worry/distress Distress Screening Total 0 RN Distress Screening Start: 06/09/21 11:42 Freq: Status: Active Protocol: Document 08/01/21 10:42 DB (Rec: 08/01/21 10:43 DB [id number]) Distress Screening Distress Score: 2 Physical Concerns Feeling tired or a lack of energy Emotional Concerns Feeling uncertain about the future Distress Screening Total 2 - Lab Results Diagram of Most Recent CBC and CMP 04/06/22 15:01 04/06/22 15:01 Labs - Last 7 Days 04/06/22 15:01: Carcinoembryonic Ag 3.8 H 04/06/22 15:01: PHA Creatinine Clear 54.01, Sodium 138, Potassium 3.4 L, Chloride 99, Carbon Dioxide 25.9, BUN 9, Creatinine 0.90, Est GFR ( Amer)> 60, Est GFR (Non-Af Amer) 60, Glucose 211 H, Calcium 8.6, Total Bilirubin 0.6,AST 40, ALT 35, Alkaline Phosphatase 62, Total Protein 5.7 L, Albumin 3.0 L, Globulin 2.7, Albumin/Globulin Ratio 1.1 04/06/22 15:01: Corrected WBC 7.5, Uncorrected WBC Count 7.5, RBC 4.25, Hgb 13.5, Hct 40.2, MCV 94.6, MCH 31.7, MCHC 33.5, RDW 16.0 H, Plt Count 240, MPV 7.0, Neut % (Auto) 94.3, Lymph % (Auto) 3.8, Bowie % (Auto) 1.4, Eos % (Auto) 0.0, Baso % (Auto) 0.5, Neut # (Auto) 7.1, Lymph # (Auto) 0.3 L, Bowie # (Auto) 0.1, Eos # (Auto) 0.0, Baso # (Auto) 0.0, Nucleated RBC % (auto) 0.1 - Home Medications and Allergies Allergies/Adverse Reactions: Allergies RADHA Inhibitors Allergy (Verified 04/10/22 10:10) Unknown Reaction erythromycin base Allergy (Verified 04/10/22 10:10) Unknown Reaction rivaroxaban [From Xarelto] Allergy (Verified 04/10/22 10:10) Unknown Reaction tiotropium [From Spiriva with HandiHaler] Allergy (Verified 04/10/22 10:10) Unknown Reaction Home Medications: Home Medications acetaminophen 500 mg tablet 500 mg PO Q4H PRN #0 tab 01/30/22 [Rx Confirmed 04/10/22] albuterol sulfate 90 mcg/actuation aerosol inhaler (Ventolin HFA) 2 puff INHALATION Q4H PRN 30 Days #1 ea 01/30/22 [Rx Confirmed 04/10/22] amiodarone 200 mg tablet 200 mg PO DAILY 30 Days #30 tab 01/30/22 [Rx Confirmed 04/10/22] amlodipine 5 mg tablet 5 mg PO DAILY 30 Days #30 tab 01/30/22 [Rx Confirmed 04/10/22] fluticasone 113 mcg-salmeterol 14 mcg/actuation breath activated powdr 1 puff INHALATION Q12HR 30 Days #1 ea 01/30/22 [Rx Confirmed 04/10/22] hydrochlorothiazide 25 mg tablet 25 mg PO DAILY 30 Days #30 tab 01/30/22 [Rx Confirmed 04/10/22] levothyroxine 112 mcg tablet (Synthroid) 112 mcg PO SuTuThSa@0630 30 Days #18 tab 01/30/22 [Rx Confirmed 04/10/22] levothyroxine 125 mcg tablet 125 mcg PO MoWeFr@0630 30 Days #13 tab 01/30/22 [Rx Confirmed 04/10/22] potassium chloride 20 mEq tablet,extended release(part/cryst) (Klor-Con M) 20 meq PO DAILY 30 Days #30 tab 01/30/22 [Rx Confirmed 04/10/22] prednisone 20 mg tablet 60 mg PO DAILY 30 Days #90 tab 01/30/22 [Rx Confirmed 04/10/22] lorazepam 0.5 mg tablet 0.5 mg PO HS PRN 30 Days #30 tab 02/24/22 [Rx Confirmed 04/10/22] meclizine 25 mg tablet 25 mg PO DAILY 02/24/22 [History Confirmed 04/10/22] Dictated By: Bertha Christianson II, DO DD/ 1052 Signed By: <Electronically signed by Bertha Christianson II, DO> 04/10/22 1058 [facility] Work Phone: Progress note Author Sherrie Melissa [facility] July 20, 2022 1:46pm Note Date/Time July 20, 2022 1: 04pm [facility] [place] [address] Rad Onc Follow Up Note - OP Signed Patient: Melida Valerio MR#: [id number] : 1940 Acct:[id number] Age/Sex: 82 / F Type: REG RCR Copies to: Wong Espino,DO Mane Mccarty, DO Bertha Johnson II, DO~ Date of Service Service Date: 07/20/22 Assessment & Plan (2) Non-small cell lung cancer (NSCLC) Plan: 1. MRI brain with and without for new onset cranial nerve palsy in the righteye-telephone follow-up. 2. Diazepam for premedication Assessment: 81-year-old female with 2 oncologic diagnoses: 1. 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 breast cancer in 2008 treated with lumpectomy and radiation in [place], [place]. She completed concurrent chemoradiation for lung cancer to a dose of 60 Wayne in 30 fractions in September 2021 under the care of Dr. Solorio. Since that time she was initiated on maintenance Durvalumab however this was held early in 2021 secondary to toxicity requiring hospitalization. Repeat PET/CT in Novemberhowed an radiographic complete response. I reviewed her recent CT scans of thechest abdomen and pelvis and concur with radiology there is no clear evidence ofprogressive disease. Would appear her respiratory status is likely a result of their Durvalumab whichhas been stopped earlier this year. She was encouraged to continue to comply with pulmonary's recommendations and use her O2 as needed. I am concerned regarding her headaches and new right eye cranial 6 palsy. Her marketing director mentioned that her right optic nerve was swollen and suggested she see a neuro-marketing director. In light of her non-small cell lung cancer I think it would be prudent to obtain an MRI. Patient reports severe claustrophobia so we reviewed the indications for premedication with diazepam and she was given a prescription. We will plan to do a telephone follow-up after MRI. Going forward patient will continue to follow with medical oncology for her imaging. Follow Up Note - Narrative 81-year-old female with: 1. 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 prior history of breast cancer in 2008 treated with lumpectomy and radiation in [place], [place]. She presented with shortness of breath in May 2021. Per the notes She went tot ER at [facility] and a chest CT scan showed right midlung consolidation. Bronchoscopy 05/30/2021 confirming endobronchial mass in the lateral segment of the right middle lobe. Biopsy confirmed squamous cell carcinoma, moderate to poorly differentiated. Patient's pulmonary function test in December 2020 showed a FEV1 of 1.95 L in the right middle lobe only comprise 11% of the total lung capacity. She also had a 2cm left adrenal nodule on the CT scan - biopsy negative She had a PET CT scan which showed increased FDG uptake in the right middle lobe extending to the right hilar area. Her EBUS and subcarinal node biopsies were reported negative. Patient received definitive concurrent chemoradiation to a dose of 60 Wayne in 30fractions completed in September 2021. Radiation was delivered under the care ofDr. Solorio. She received carboplatin and paclitaxol followed by maintenance durvalumab. Post treatment PET/CT 11/2021 SHELLEY. Durvalumab changed to monthly - received 1 dose on: 12/07/2021 At her last Med Onc follow up in February 2022 durvalumab was held for concern for immunotherapy related neurologic toxicity. 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 01/11/22 Brain MRI no evidence of intracranial metastasis or other acute changes. She had hospitalization for this including prolonged stay in the TCU. Ultimately she was discharged home She also has a history of severe and recurrent C. difficile infection. She returns to clinic today for follow-up having undergone repeat CT scan in June that showed no significant significant change in the chest abdomen or pelvis. There was no CT evidence of progression of disease. Her respiratory status is overall unchanged. She is now taper down her prednisone and uses halfa tab every other day. She has seen Dr. Mccarty as well as had PFTs which continue to show her need for home oxygen when ambulating. Her newest complaintis occasional headaches as well as my eyes are going in the same direction . Her marketing director recommended she see a neuro-marketing director at the [facility]. She has not been able to confirm an appointment yet. Physical Exam: General: alert and oriented female in wheelchair, no acute distress HEENT: normocephalic, CN palsy on RIGHT Lungs: normal work of breathing on room air, Abdomen: non acute MSK: extremities within normal limits Neuro: grossly intact Dictated By: Sherrie Melissa MD DD/ [id number] Signed By: <Electronically signed by Sherrie Melissa MD> 07/20/22 1346 [facility] Work Phone: Progress note Author Bertha Christianson [facility] October 30, 2022 10:21am Note Date/Time October 30, 2022 1 0:10am [facility] at [address] [address] Hem/Onc Follow Up Note - OP Signed Patient: Melida Valerio MR#: [id number] : 1940 Acct:[id number] Age/Sex: 82 / F Type: REG RCR Copies to: DO Hiral Teague DO~ Date of Service: 10/30/2022 Time of Service: 10:02 - Assessment & Plan (1) 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 Plan: 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 Stage IIB negative EBUS, negative adrenal nodule biopsy Completed concurrent chemoradiation for her cancer carboplatin and paclitaxel jul through sep 2021. followed by maintenance durvalumab. Started maintenance durvalumab (received 2 doses - 2 weeks apart) 10 mg/kg dosing- given 10/26/2021 and 11/09/2021. PET/CT 11/2021 SHELLEY. -- therapy changed to monthly dosing (Q 4 weeks - 1500 mg) - received 1 dose on: 12/07/2021 IRAE - durvalumab was stopped early due to concern for immunotherapy related neurologic toxicity. 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 Brain MRI was essentially negative; with no evidence of intracranial metastasis or other acute changes. She had hospitalization for this including prolonged stay in the TCU. Ultimately she is discharged home and is getting stronger maintains prednisone 40 mg p.o. daily as of 02/24/2022. 10mg daily as of 05/08/22 drop to 5mg as of 06/09/22 no prednisone after about july 2022. She also has a history of severe and recurrent C. difficile infection. history breast cancer in 2009. Follow Up Instructions: f/u after scan ct c/a/p in 6 months. cbc, cmp, esr, prior to f/u. cont port flushes. print her neuro antibody panel and give her copy. print her note and give her a copy. - History of Present Illness Chief Complaint: Patient is here for a 4 month follow up with labs and imaging for review. No concerns voiced at this time. HPI: 81-year-old female referred from Dr. Mccarty whom I previously followed at [facility] for breast cancer. Past medical history includes hypertension, chronic venous insufficiency, gastroesophageal reflux disease, type 2 diabetes, quit smoking in 1999, pernicious anemia, hypothyroidism, iron deficiency anemia, paroxysmal atrial fibrillation, hyperlipidemia, chronic bronchitis.. She had a hysterectomy and nephrectomy in her 20s for endometriosis. Outpatient medications include ProAir, levothyroxine, hydrochlorothiazide, amlodipine, montelukast, amiodarone. DEXA scan from 2018 shows osteopenia in the hip and normal in the spine echocardiogram from May 2019 shows ejection fraction of greater than 55%, no significant wall motion abnormalities and mild diastolic dysfunction. Slightly elevated right-sided pressures. No significant valvular abnormalities. She does have a sister with breast cancer in her 40s, mother sister had breast cancer in her 70s, mother's other sister had breast cancer in her 70s, mother had breast cancer in her 50s. Melida has 2 adopted children. She was diagnosed with ER/WA positive HER-2 negative breast cancer in 2009 at a hospital in [place]. She got adjuvant radiotherapy following lumpectomy. She did not get chemotherapy and refused adjuvant tamoxifen and has been monitored since. CAT scan of the chest from January 2017 showed no evidence of disease. She followed up with mammograms regularly and they were all normal. She had some short of breath since December 2020. In late April she noted a slight right upper quadrant pain. Worse with deep breathing. She went to ER on 05/16/21. She had XR with R sided consolidation. and A CT of the abdomen and pelvis from May 16, 2021 with IV contrast shows normallung bases, normal liver, pancreas, gallbladder, spleen. Left adrenal 2 cm nodule, normal kidneys, bladder, bowel, peritoneum. No enlarged lymph nodes. No abnormalities in the bones. She was admitted to the hospital and had CT chest next day which noted a large mass. Some dry irritating cough. She was discharged and f/u with dr. mccarty. She had a bronchoscopy on 05/30/[address] Mccarty. Found an endobronchial mass in the lateral segment of the right middle lobe. 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 Negative for TTF-1 and positive for P 40. She had pulmonary function studies in December 2020 with an FEV1 of 1.95 L in the right middle lobe only comprises 11% of the total lung capacity. She has not yet had PET/CT. had EBUS Dr. JOHNSON. Nodes all negative adrenal biopsy negative. PET/CT with disease localized, few nodes curious. 10/17/2021: Patient reports for post treatment follow up visit. 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 Towards the end of treatment she was diagnosed with C diff colitis treated first with oral Vancomycin and then Flagyl. Clinically, she is much improved. No further episodes of diarrhea. She appears non toxic. She is approximately 1 month out from treatment; she reports no significant or new issues other than dry, sometimes productive cough. Worse during the day; denies shortness of breath, sputum production, dysphagia, fever/chills, or hemoptysis. Plan to initiate maintenance Durvalumab as soon as insurance approves. She will need post treatment scan, as well. Will arrange for PET/CT scan in ~ 5 weeks with follow up thereafter. 11/09/21 she is feeling much better today, has not had diarrhea in 2 days. almost feels like she may be getting constipated she admits to not staying hydrated today and yesterday, so we encouraged her to push more fluids, which may help with her bowels as well she denies any other complaints, tolerating the fidaxomycin well energy is much improved and she is cooking again will get durvalumab today 11/29/21 she has some chest soreness, some cough. overall doing well. PET/CT with great outcome. 11/28/21 NO RESIDUAL RIGHT MIDDLE LOBE MASS OR PATHOLOGIC ADENOPATHY. SUBCUTANEOUS NODULE IN THE RIGHT LABIAL REGION, POSSIBLYA SEBACEOUS CYST. CLINICAL CORRELATION IS RECOMMENDED. on durvalumab x 1 month. will continue for 12 month. pooping is good. She does not have any more diarrhea. 01/16/2022: Melida is here for add on visit due to multiple issues prior to next cycle of maintenance Durvalumab. 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 The patient reports a rather complicated clinical course over the past several weeks. To briefly summarize, the patient reportedly had a fall at home on 11/14/2021. The patient's family reports that approximately 3 weeks after she fell; and ~ 2-3 days after last immunotherapy; she began having a multitude of complaints including headaches, dizziness, balance issues, trouble swallowing and progressive weakness in extremities x 4. The patient is markedly fatigue, reports she is not even able to bathe or dress herself; can no longer ambulate and essentially cannot do any regular ADL's that she was doing a few months ago. Of note, the patient is usually with robust performance status and this is clearly a deviation of her baseline. She reports worsening dyspnea/shortness of breath; hard to feel like she is getting adequate air. She also reports a severely dry mouth and has obvious unilateral ptosis of the left eye. 02/24/22 She is doing better. She has dizziness. She is in a wheelchair today. She is scheduled for an EMG but she thinks she may cancel. Her breathing is better but still notes short of breath. Improved with albuterol inhaler. She is now able to get up and use a walker to get to the bathroom and she lays in bed and gets dressed. She notes her R arm continues to feel very heavy. Sheis just ambulating some finally with the walker this week with great difficulty. She has a lot of shaking in her R arm and cant hold her coffee or a spoon with peas on it. She continues on prednisone 40mg daily. 04/10/22 she is now prednisone 20mg. She has been on this for about two weeks. SHe complains still of shortness of breath. She follows with Dr. Mccarty but hasnt seen him in a while. She is in wheelchair again today. Still some L eye droop. She maintains on amiodarone, follows with Dr. Cadena. uses a walker, mobility is improving but still needs some help even with a walker. She continues to do her exercises daily. 05/08/22 She is on 10mg prednisone. She is going to decrease 5mg today. Her L eye looks quite a lot better. Still some at night. Still very short of breath. She see Dr. Mccarty a month ago. Dr. Cadena ordered PFTs. still on amiodarone. She uses oxygen on exertion now. wheelchair for distances. Walker at home for falling. 06/09/22 SHe had recent stress test. recent ct c/a/p with contrast without evidence of any cancer. she continues on 5 or 10mg prednisone for her presumed irae neurologic problems. she states she is better overall. She notes eyesight is bad all the time is blurry. She has some macular degeneration but no cataracts and following closely with her eye doctor. She notes some small bruising on her arms. she isnot on aspirin or plavix. 10/30/21 she is doing well enough overall. She continues to deal with a velez up the back of her head and then gets dizzy and nauseaous. She get pain in her head when she lay on the pillow. She statesit is not a headache but head pain. She does better without a pillow. She cantstand up for a long period of time because she gets this velez feeling worse and very uncomfortable. She has upcoming neuropthalmology appt with [facility]. This was a referral from Dr. Asif in [place]. Apparently she has been having some double vision and her extraocular motion exam with Dr. Asif showed lack of her eyes tracking well. she cant bend over or reach up for the velez to the head issue. ct chest abd pelvis 10/26/21 notes New consolidative changes centered in the right hilar region extending into theright middle and lower lobes. Finding could relate to evolving posttreatment changes given the history. Attention on follow-up is suggested. No CT evidenceof progression of disease is seen within the abdomen or pelvis. - Physical Exam ECOG PS: 1 General : patient is alert and oriented to person place and time, no acute distress. no ptosis. EOMI grossly abnormal. CNIII palsy, she has upgaze of R eye with attempted medial deviaiton. Neck: no JVD or thyromegaly. Lymph: no cervical, supraclavicular, axillary adenopathy. Heart: regular rate and rhythm no murmurs rubs or gallops. Abdomen: soft nontender nondistended, no hepatosplenomegaly. Lungs: cta bl, no wheezes, rales, rhonchi Extremities: no clubbing cyanosis. RUE still a bit clumsy and 5/5 strength. - Time with Patient Coordination of Care & Counseling Time: Greater than 50% of time spent with patient was for coordination of care (as documented) and neec-ln-dyze counseling of patient and/or family. 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 Nicotine dependence, cigarettes, in remission Pernicious anemia Primary insomnia - Surgical History Surgical History: Surgical History (Last Reviewed 08/10/22 @ 06:19 by Joana Li LPN) History of appendectomy History of hernia repair History of hysterectomy History of left breast biopsy History of tonsillectomy - Family History Family History: Family History (Last Reviewed 08/10/22 @ 06:19 by Joana Li LPN) Other Breast cancer Pancreatic cancer Prostate cancer - Social History Smoking Status: Former smoker Tobacco Type: cigarettes Substance Use Type: None Additional Data - Additional Objective Data Height/Weight: Height 5 ft 5 in Weight 88.9 kg BSA for Today's Weight 2.04 Vital Signs: 10/30/22 09:51 Pulse Rate [Left Brachial] 60 Respiratory Rate 18 Blood Pressure [Left Arm] 111/53 L 02 Sat by Pulse Oximetry 98 Oxygen Delivery Method Room Air Distress Screening: RN Distress Screening Start: 06/09/21 11:10 Freq: Status: Complete Protocol: Document 06/23/21 14:32 DB (Rec: 06/23/21 14:32 DB [id number]) Distress Screening Distress Score: 0 No worry/distress Distress Screening Total 0 RN Distress Screening Start: 06/09/21 11:42 Freq: Status: Active Protocol: Document 08/01/21 10:42 DB (Rec: 08/01/21 10:43 DB [id number]) Distress Screening Distress Score: 2 Physical Concerns Feeling tired or a lack of energy Emotional Concerns Feeling uncertain about the future Distress Screening Total 2 - Lab Results Diagram of Most Recent CBC and CMP 10/26/22 09:27 10/26/22 09:27 Labs - Last 7 Days 10/26/22 09:27: Carcinoembryonic Ag 3.7 H 10/26/22 09:27: PHA Creatinine Clear 40.16, Sodium 135 L, Potassium 3.0 L, Chloride 96, Carbon Dioxide 29.1, Anion Gap 12.9, BUN 23, Creatinine 1.21 H, EstGFR ( Amer) 52, Est GFR (Non-Af Amer) 43, Glucose 125 H, Calcium 8.8, Total Bilirubin 0.4, AST 25, ALT 17, Alkaline Phosphatase 80, Total Protein 6.6,Albumin 3.0 L, Globulin 3.6, Albumin/Globulin Ratio 0.8 10/26/22 09:27: Corrected WBC 6.8, Uncorrected WBC Count 6.8, RBC 4.28, Hgb 12.9, Hct 38.9, MCV 91.0, MCH 30.1, MCHC 33.1, RDW 14.0, Plt Count 306, MPV 7.1,Neut % (Auto) 70.6, Lymph % (Auto) 16.5, Bowie % (Auto) 10.8, Eos % (Auto) 1.2, Baso % (Auto) 0.9, Nucleat RBC Rel Count 0.1, Neut # (Auto) 4.8, Lymph # (Auto) 1.1, Bowie # (Auto) 0.7, Eos # (Auto) 0.1, Baso # (Auto) 0.1 - Home Medications and Allergies Allergies/Adverse Reactions: Allergies RADHA Inhibitors Allergy (Verified 10/30/22 09:51) Unknown Reaction erythromycin base Allergy (Verified 10/30/22 09:51) Unknown Reaction rivaroxaban [From Xarelto] Allergy (Verified 10/30/22 09:51) Unknown Reaction tiotropium [From Spiriva with HandiHaler] Allergy (Verified 10/30/22 09:51) Unknown Reaction Home Medications: Home Medications albuterol sulfate 90 mcg/actuation aerosol inhaler (Ventolin HFA) 2 puff inhalation Q4H PRN Dyspnea 30 days #1 lazarus 01/30/22 [Rx Confirmed 10/30/22] amiodarone 200 mg tablet 200 mg PO DAILY 30 days #30 tabs 01/30/22 [Rx Confirmed 10/30/22] amlodipine 5 mg tablet 5 mg PO DAILY 30 days #30 tabs 01/30/22 [Rx Confirmed 10/30/22] fluticasone 113 mcg-salmeterol 14 mcg/actuation breath activated powdr 1 puff inhalation Q12HR 30 days #1 lazarus 01/30/22 [Rx Confirmed 10/30/22] hydrochlorothiazide 25 mg tablet 25 mg PO DAILY 30 days #30 tabs 01/30/22 [Rx Confirmed 10/30/22] levothyroxine 112 mcg tablet (Synthroid) 112 mcg PO SuTuThSa@0630 30 days #18 tabs 01/30/22 [Rx Confirmed 10/30/22] levothyroxine 125 mcg tablet 125 mcg PO MoWeFr@0630 30 days #13 tabs 01/30/22 [Rx Confirmed 10/30/22] potassium chloride 20 mEq tablet,extended release(part/cryst) (Klor-Con M) 20 meq PO DAILY 30 days #30 tabs 01/30/22 [Rx Confirmed 10/30/22] buspirone 15 mg tablet 7.5 mg PO BID 08/10/22 [History Confirmed 10/30/22] lorazepam 0.5 mg tablet 0.5 mg PO HS PRN Sleep 60 days #60 tabs 08/28/22 [Rx Confirmed 10/30/22] torsemide 20 mg tablet 20 mg PO DAILY 10/30/22 [History Confirmed 10/30/22] Dictated By: Bertha Christianson II, DO DD/ 1002 Signed By: <Electronically signed by Bertha Christianson II, DO> 10/30/22 1021 [facility] Work Phone: Progress note Author Bertha Christianson [facility] April 30, 2023 10:36am Note Date/Time April 30, 2023 10:1 8am [facility] [place] [address] Hem/Onc Follow Up Note - OP Signed Patient: Melida Valerio MR#: [id number] : 1940 Acct:[id number] Age/Sex: 83 / F Type: REG RCR Copies to: DO Hiral Teague DO~ Date of Service: 04/30/2023 Time of Service: 10:16 - Assessment & Plan (1) 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 Plan: 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 Stage IIB negative EBUS, negative adrenal nodule biopsy Completed concurrent chemoradiation for her cancer carboplatin and paclitaxel jul through sep 2021. followed by maintenance durvalumab. Started maintenance durvalumab got 4 doses total in oct and nov 2021, then stopped for IRAE PET/CT 11/[address] C/A/P with contrst from april 2023 with no active disease. IRAE - durvalumab was stopped early due to concern for immunotherapy related neurologic toxicity. 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 Brain MRI was essentially negative; with no evidence of intracranial metastasis or other acute changes in jul 2022. She had hospitalization for this including prolonged stay in the TCU. maintains prednisone 40 mg p.o. daily as of 02/24/2022. 10mg daily as of 05/08/22 drop to 5mg as of 06/09/22 no prednisone after about july 2022. She also has a history of severe and recurrent C. difficile infection. history breast cancer in 2009. L flank pain, cdiff negative. will check ua. headaches. we discussed repeating MRI brain at visit 04/30/23, we decided not toscan her. does not seem neoplastic. If she has any focal neurologic deficit will consider scan brain. Follow Up Instructions: check ua. f/u in [address] c/a/p with cotnrast prior. cbc, cmp, cea prior to f/u. refill her buspirone. - History of Present Illness Chief Complaint: Patient is here for a 6 month follow up with lab and scans for review. Patient reports a dry cough and headaches when she closes her eyes. She also states that she is not sleeping well. No other concerns voiced at this time. HPI: 81-year-old female referred from Dr. Mccarty whom I previously followed at [facility] for breast cancer. Past medical history includes hypertension, chronic venous insufficiency, gastroesophageal reflux disease, type 2 diabetes, quit smoking in 1999, pernicious anemia, hypothyroidism, iron deficiency anemia, paroxysmal atrial fibrillation, hyperlipidemia, chronic bronchitis.. She had a hysterectomy and nephrectomy in her 20s for endometriosis. Outpatient medications include ProAir, levothyroxine, hydrochlorothiazide, amlodipine, montelukast, amiodarone. DEXA scan from 2018 shows osteopenia in the hip and normal in the spine echocardiogram from May 2019 shows ejection fraction of greater than 55%, no significant wall motion abnormalities and mild diastolic dysfunction. Slightly elevated right-sided pressures. No significant valvular abnormalities. She does have a sister with breast cancer in her 40s, mother sister had breast cancer in her 70s, mother's other sister had breast cancer in her 70s, mother had breast cancer in her 50s. Melida has 2 adopted children. She was diagnosed with ER/WA positive HER-2 negative breast cancer in 2009 at a hospital in [place]. She got adjuvant radiotherapy following lumpectomy. She did not get chemotherapy and refused adjuvant tamoxifen and has been monitored since. CAT scan of the chest from January 2017 showed no evidence of disease. She followed up with mammograms regularly and they were all normal. She had some short of breath since December 2020. In late April she noted a slight right upper quadrant pain. Worse with deep breathing. She went to ER on 05/16/21. She had XR with R sided consolidation. and A CT of the abdomen and pelvis from May 16, 2021 with IV contrast shows normallung bases, normal liver, pancreas, gallbladder, spleen. Left adrenal 2 cm nodule, normal kidneys, bladder, bowel, peritoneum. No enlarged lymph nodes. No abnormalities in the bones. She was admitted to the hospital and had CT chest next day which noted a large mass. Some dry irritating cough. She was discharged and f/u with dr. mccarty. She had a bronchoscopy on 05/30/[address] Mccarty. Found an endobronchial mass in the lateral segment of the right middle lobe. 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 Negative for TTF-1 and positive for P 40. She had pulmonary function studies in December 2020 with an FEV1 of 1.95 L in the right middle lobe only comprises 11% of the total lung capacity. She has not yet had PET/CT. had EBUS Dr. JOHNSON. Nodes all negative adrenal biopsy negative. PET/CT with disease localized, few nodes curious. 10/17/2021: Patient reports for post treatment follow up visit. 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 Towards the end of treatment she was diagnosed with C diff colitis treated first with oral Vancomycin and then Flagyl. Clinically, she is much improved. No further episodes of diarrhea. She appears non toxic. She is approximately 1 month out from treatment; she reports no significant or new issues other than dry, sometimes productive cough. Worse during the day; denies shortness of breath, sputum production, dysphagia, fever/chills, or hemoptysis. Plan to initiate maintenance Durvalumab as soon as insurance approves. She will need post treatment scan, as well. Will arrange for PET/CT scan in ~ 5 weeks with follow up thereafter. 11/09/21 she is feeling much better today, has not had diarrhea in 2 days. almost feels like she may be getting constipated she admits to not staying hydrated today and yesterday, so we encouraged her to push more fluids, which may help with her bowels as well she denies any other complaints, tolerating the fidaxomycin well energy is much improved and she is cooking again will get durvalumab today 11/29/21 she has some chest soreness, some cough. overall doing well. PET/CT with great outcome. 11/28/21 NO RESIDUAL RIGHT MIDDLE LOBE MASS OR PATHOLOGIC ADENOPATHY. SUBCUTANEOUS NODULE IN THE RIGHT LABIAL REGION, POSSIBLYA SEBACEOUS CYST. CLINICAL CORRELATION IS RECOMMENDED. on durvalumab x 1 month. will continue for 12 month. pooping is good. She does not have any more diarrhea. 01/16/2022: Melida is here for add on visit due to multiple issues prior to next cycle of maintenance Durvalumab. 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 The patient reports a rather complicated clinical course over the past several weeks. To briefly summarize, the patient reportedly had a fall at home on 11/14/2021. The patient's family reports that approximately 3 weeks after she fell; and ~ 2-3 days after last immunotherapy; she began having a multitude of complaints including headaches, dizziness, balance issues, trouble swallowing and progressive weakness in extremities x 4. The patient is markedly fatigue, reports she is not even able to bathe or dress herself; can no longer ambulate and essentially cannot do any regular ADL's that she was doing a few months ago.Of note, the patient is usually with robust performance status and this is clearly a deviation of her baseline. She reports worsening dyspnea/shortness of breath; hard to feel like she is getting adequate air. She also reports a severely dry mouth and has obvious unilateral ptosis of the left eye. 02/24/22 She is doing better. She has dizziness. She is in a wheelchair today. She is scheduled for an EMG but she thinks she may cancel. Her breathing is better but still notes short of breath. Improved with albuterol inhaler. She is now able to get up and use a walker to get to the bathroom and she lays in bed and gets dressed. She notes her R arm continues to feel very heavy. Sheis just ambulating some finally with the walker this week with great difficulty. She has a lot of shaking in her R arm and cant hold her coffee or a spoon with peas on it. She continues on prednisone 40mg daily. 04/10/22 she is now prednisone 20mg. She has been on this for about two weeks. SHe complains still of shortness of breath. She follows with Dr. Mccarty but hasnt seen him in a while. She is in wheelchair again today. Still some L eye droop. She maintains on amiodarone, follows with Dr. Cadena. uses a walker, mobility is improving but still needs some help even with a walker. She continues to do her exercises daily. 05/08/22 She is on 10mg prednisone. She is going to decrease 5mg today. Her L eye looks quite a lot better. Still some at night. Still very short of breath. She see Dr. Mccarty a month ago. Dr. Cadena ordered PFTs. still on amiodarone. She uses oxygen on exertion now. wheelchair for distances. Walker at home for falling. 06/09/22 SHe had recent stress test. recent ct c/a/p with contrast without evidence of any cancer. she continues on 5 or 10mg prednisone for her presumed irae neurologic problems. she states she is better overall. She notes eyesight is bad all the time is blurry. She has some macular degeneration but no cataracts and following closely with her eye doctor. She notes some small bruising on her arms. she isnot on aspirin or plavix. 10/30/21 she is doing well enough overall. She continues to deal with a velez up the back of her head and then gets dizzy and nauseaous. She get pain in her head when she lay on the pillow. She statesit is not a headache but head pain. She does better without a pillow. She cantstand up for a long period of time because she gets this velez feeling worse and very uncomfortable. She has upcoming neuropthalmology appt with [facility]. This was a referral from Dr. Asif in [place]. Apparently she has been having some double vision and her extraocular motion exam with Dr. Asif showed lack of her eyes tracking well. she cant bend over or reach up for the velez to the head issue. ct chest abd pelvis 10/26/21 notes New consolidative changes centered in the right hilar region extending into theright middle and lower lobes. Finding could relate to evolving posttreatment changes given the history. Attention on follow-up is suggested. No CT evidenceof progression of disease is seen within the abdomen or pelvis. 04/30/23 CT C/A/P WITH CONTRAST FROM 04/27/23 NOTES IMPROVING RIGHT MIDDLE LOBE ATELECTASIS AND SOFT TISSUE DENSITY AT THE RIGHT HILUM., ADDITIONAL MINOR ATELECTASIS OR SCARRING AND TINY STABLE PULMONARY NODULES. STABLE LEFT ADRENAL NODULE. LEFT RENAL CYST. NO BOWEL OR URINARY TRACT OBSTRUCTION. DIFFUSE DIVERTICULOSIS. NO OTHER ACUTE FINDINGS ARE SUSPECTED METASTATIC DISEASE. She is doing well enough overall. She is here with her who is also in [place]. She notes some chronic dry cough. Her dizzy and nausea persists but overall better. she attributes dizzy to her eyes. She has been having some L flank pain occasionally. not sleeping well, melatoinin, wine, gin and tonic, benadryl, lorazepam, not been very helpful. - Physical Exam ECOG PS: 1 General : patient is alert and oriented to person place and time, no acute distress. no ptosis. EOMI grossly abnormal. CNIII nearly 100% recovered. Neck: no JVD or thyromegaly. Lymph: no cervical, supraclavicular, axillary adenopathy. Heart: regular rate and rhythm no murmurs rubs or gallops. Abdomen: soft nontender nondistended, no hepatosplenomegaly. Lungs: cta bl, no wheezes, rales, rhonchi Extremities: no clubbing cyanosis. RUE still a bit clumsy and 5/5 strength. - Time with Patient Coordination of Care & Counseling Time: Greater than 50% of time spent with patient was for coordination of care (as documented) and [id number]-[id number] counseling of patient and/or family. 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 Nicotine dependence, cigarettes, in remission Pernicious anemia Primary insomnia - Surgical History Surgical History: Surgical History (Last Reviewed 08/10/22 @ 06:19 by Joana Li LPN) History of appendectomy History of hernia repair History of hysterectomy History of left breast biopsy History of tonsillectomy - Family History Family History: Family History (Last Reviewed 08/10/22 @ 06:19 by Joana Li LPN) Other Breast cancer Pancreatic cancer Prostate cancer - Social History Smoking Status: Former smoker Tobacco Type: cigarettes Substance Use Type: None Additional Data - Additional Objective Data Height/Weight: Height 5 ft 5 in Weight 90.083 kg BSA for Today's Weight 2.04 Vital Signs: 04/30/23 10:04 Pulse Rate [Left Brachial] 56 L Respiratory Rate 18 Blood Pressure [Left Arm] 148/79 H 02 Sat by Pulse Oximetry 98 Oxygen Delivery Method Room Air Distress Screening: RN Distress Screening Start: 06/09/21 11:10 Freq: Status: Complete Protocol: Document 06/23/21 14:32 DB (Rec: 06/23/21 14:32 DB [id number]) Distress Screening Distress Score: 0 No worry/distress Distress Screening Total 0 RN Distress Screening Start: 06/09/21 11:42 Freq: Status: Active Protocol: Document 08/01/21 10:42 DB (Rec: 08/01/21 10:43 DB [id number]) Distress Screening Distress Score: 2 Physical Concerns Feeling tired or a lack of energy Emotional Concerns Feeling uncertain about the future Distress Screening Total 2 - Lab Results Diagram of Most Recent CBC and CMP 04/27/23 10:00 04/27/23 10:00 Labs - Last 7 Days 04/27/23 10:00: PHA Creatinine Clear 37.91, Sodium 140, Potassium 3.5, Chloride 104, Carbon Dioxide 29.6, Anion Gap 9.9, BUN 20, Creatinine 1.26 H, Est GFR (CKD-EPI) 42.625, Glucose 118 H, Calcium 8.8, Total Bilirubin 0.5, AST 20, ALT 18, Alkaline Phosphatase 86, Total Protein 6.9, Albumin 3.8, Globulin 3.1, Albumin/Globulin Ratio 1.2 04/27/23 10:00: Corrected WBC 5.0, Uncorrected WBC Count 5.0, RBC 4.40, Hgb 13.7, Hct 40.5, MCV 92.2, MCH 31.1, MCHC 33.8, RDW 14.2, Plt Count 213, MPV 7.3,Neut % (Auto) 59.9, Lymph % (Auto) 25.8, Bowie % (Auto) 11.6, Eos % (Auto) 1.5, Baso % (Auto) 1.2, Nucleat RBC Rel Count 0.2, Neut # (Auto) 3.0, Lymph # (Auto) 1.3, Bowie # (Auto) 0.6, Eos # (Auto) 0.1, Baso # (Auto) 0.1, ESR 26 04/27/23 08:00: C. difficile Tox B Gene Negative - Home Medications and Allergies Allergies/Adverse Reactions: Allergies RADHA Inhibitors Allergy (Verified 10/30/22 09:51) Unknown Reaction erythromycin base Allergy (Verified 10/30/22 09:51) Unknown Reaction rivaroxaban [From Xarelto] Allergy (Verified 10/30/22 09:51) Unknown Reaction tiotropium [From Spiriva with HandiHaler] Allergy (Verified 10/30/22 09:51) Unknown Reaction Home Medications: Home Medications albuterol sulfate 90 mcg/actuation aerosol inhaler (Ventolin HFA) 2 puff inhalation Q4H PRN Dyspnea 30 days #1 ea 01/30/22 [Rx Confirmed 10/30/22] amiodarone 200 mg tablet 200 mg PO DAILY 30 days #30 tabs 01/30/22 [Rx Confirmed 04/30/23] fluticasone 113 mcg-salmeterol 14 mcg/actuation breath activated powdr 1 puff inhalation Q12HR 30 days #1 ea 01/30/22 [Rx Confirmed 04/30/23] levothyroxine 112 mcg tablet (Synthroid) 112 mcg PO SuTuThSa@0630 30 days #18 tabs 01/30/22 [Rx Confirmed 04/30/23] levothyroxine 125 mcg tablet 125 mcg PO MoWeFr@0630 30 days #13 tabs 01/30/22 [Rx Confirmed 04/30/23] torsemide 20 mg tablet 20 mg PO DAILY 10/30/22 [History Confirmed 04/30/23] lorazepam 0.5 mg tablet 0.5 mg PO HS PRN Sleep 60 days #60 tabs 03/20/23 [Rx Confirmed 04/30/23] Dictated By: Bertha Christianson II, DO DD/ 1016 Signed By: <Electronically signed by Bertha Christianson II, DO> 04/30/23 1036 [facility] Work Phone: Reason for referral (narrative)No reason for referral information [facility]Pro[facility] Work Phone: Summary Purpose Family History Unknown Family Member Name Dates Details Family history of diabetes m ellitus: Sister(V18.0, Z83.3) Status:Active Family history of malignant neoplasm of breast: Mother, Sister(V16.3, Z80.3) Status:Active Family history of cardiac di sorder: Father(V17.49, Z82.49) Status:Active Unknown Family Member Name Dates Details Family history of diabetes m ellitus: Sister(V18.0, Z83.3) Status:Active Family history of malignant neoplasm of breast: Mother, Sister(V16.3, Z80.3) Status:Active Family history of cardiac di sorder: Father(V17.49, Z82.49) Status:Active Unknown Family Member Name Dates Details Family history of diabetes m ellitus: Sister(V18.0, Z83.3) Status:Active Family history of malignant neoplasm of breast: Mother, Sister(V16.3, Z80.3) Status:Active Family history of cardiac di sorder: Father(V17.49, Z82.49) Status:Active Unknown Family Member Name Dates Details Family history of cardiac di sorder: Father(V17.49, Z82.49) Status:Active Family history of malignant neoplasm of breast: Mother, Sister(V16.3, Z80.3) Status:Active Family history of diabetes m ellitus: Sister(V18.0, Z83.3) Status:Active Unknown Family Member Name Dates Details Family history of diabetes m ellitus: Sister(V18.0, Z83.3) Status:Active Family history of malignant neoplasm of breast: Mother, Sister(V16.3, Z80.3) Status:Active Family history of cardiac di sorder: Father(V17.49, Z82.49) Status:Active Relationship Condition Age at Onset Recorded Date/T madelaine Not Specified Malignant neoplasm of pancreas Unknown Malignant neoplasm of prostate Unknown Malignant neoplasm of breast Unknown Unknown Family Member Name Dates Details Family history of diabetes m ellitus: Sister(V18.0, Z83.3) Status:Active Family history of malignant neoplasm of breast: Mother, Sister(V16.3, Z80.3) Status:Active Family history of cardiac di sorder: Father(V17.49, Z82.49) Status:Active Unknown Family Member Name Dates Details Family history of diabetes m ellitus: Sister(V18.0, Z83.3) Status:Active Family history of malignant neoplasm of breast: Mother, Sister(V16.3, Z80.3) Status:Active Family history of cardiac di sorder: Father(V17.49, Z82.49) Status:Active Unknown Family Member Name Dates Details Family history of diabetes m ellitus: Sister(V18.0, Z83.3) Status:Active Family history of malignant neoplasm of breast: Mother, Sister(V16.3, Z80.3) Status:Active Family history of cardiac di sorder: Father(V17.49, Z82.49) Status:Active Unknown Family Member Name Dates Details Family history of diabetes m ellitus: Sister(V18.0, Z83.3) Status:Active Family history of malignant neoplasm of breast: Mother, Sister(V16.3, Z80.3) Status:Active Family history of cardiac di sorder: Father(V17.49, Z82.49) Status:Active Unknown Family Member Name Dates Details Family history of diabetes m ellitus: Sister(V18.0, Z83.3) Status:Active Family history of malignant neoplasm of breast: Mother, Sister(V16.3, Z80.3) Status:Active Family history of cardiac di sorder: Father(V17.49, Z82.49) Status:Active Unknown Family Member Name Dates Details Family history of diabetes m ellitus: Sister(V18.0, Z83.3) Status:Active Family history of malignant neoplasm of breast: Mother, Sister(V16.3, Z80.3) Status:Active Family history of cardiac di sorder: Father(V17.49, Z82.49) Status:Active Unknown Family Member Name Dates Details Family history of diabetes m ellitus: Sister(V18.0, Z83.3) Status:Active Family history of malignant neoplasm of breast: Mother, Sister(V16.3, Z80.3) Status:Active Family history of cardiac di sorder: Father(V17.49, Z82.49) Status:Active Unknown Family Member Name Dates Details Family history of cardiac di sorder: Father(V17.49, Z82.49) Status:Active Family history of malignant neoplasm of breast: Mother, Sister(V16.3, Z80.3) Status:Active Family history of diabetes m ellitus: Sister(V18.0, Z83.3) Status:Active Unknown Family Member Name Dates Details Family history of diabetes m ellitus: Sister(V18.0, Z83.3) Status:Active Family history of malignant neoplasm of breast: Mother, Sister(V16.3, Z80.3) Status:Active Family history of cardiac di sorder: Father(V17.49, Z82.49) Status:Active Unknown Family Member Name Dates Details Family history of cardiac di sorder: Father(V17.49, Z82.49) Status:Active Family history of malignant neoplasm of breast: Mother, Sister(V16.3, Z80.3) Status:Active Family history of diabetes m ellitus: Sister(V18.0, Z83.3) Status:Active Unknown Family Member Name Dates Details Family history of diabetes m ellitus: Sister(V18.0, Z83.3) Status:Active Family history of malignant neoplasm of breast: Mother, Sister(V16.3, Z80.3) Status:Active Family history of cardiac di sorder: Father(V17.49, Z82.49) Status:Active Unknown Family Member Name Dates Details Family history of diabetes m ellitus: Sister(V18.0, Z83.3) Status:Active Family history of malignant neoplasm of breast: Mother, Sister(V16.3, Z80.3) Status:Active Family history of cardiac di sorder: Father(V17.49, Z82.49) Status:Active Unknown Family Member Name Dates Details Family history of diabetes m ellitus: Sister(V18.0, Z83.3) Status:Active Family history of malignant neoplasm of breast: Mother, Sister(V16.3, Z80.3) Status:Active Family history of cardiac di sorder: Father(V17.49, Z82.49) Status:Active Unknown Family Member Name Dates Details Family history of diabetes m ellitus: Sister(V18.0, Z83.3) Status:Active Family history of malignant neoplasm of breast: Mother, Sister(V16.3, Z80.3) Status:Active Family history of cardiac di sorder: Father(V17.49, Z82.49) Status:Active Unknown Family Member Name Dates Details Family history of diabetes m ellitus: Sister(V18.0, Z83.3) Status:Active Family history of malignant neoplasm of breast: Mother, Sister(V16.3, Z80.3) Status:Active Family history of cardiac di sorder: Father(V17.49, Z82.49) Status:Active Unknown Family Member Name Dates Details Family history of diabetes m ellitus: Sister(V18.0, Z83.3) Status:Active Family history of malignant neoplasm of breast: Mother, Sister(V16.3, Z80.3) Status:Active Family history of cardiac di sorder: Father(V17.49, Z82.49) Status:Active Unknown Family Member Name Dates Details Family history of diabetes m ellitus: Sister(V18.0, Z83.3) Status:Active Family history of malignant neoplasm of breast: Mother, Sister(V16.3, Z80.3) Status:Active Family history of cardiac di sorder: Father(V17.49, Z82.49) Status:Active Unknown Family Member Name Dates Details Family history of diabetes m ellitus: Sister(V18.0, Z83.3) Status:Active Family history of malignant neoplasm of breast: Mother, Sister(V16.3, Z80.3) Status:Active Family history of cardiac di sorder: Father(V17.49, Z82.49) Status:Active Relationship Condition Age at Onset Recorded Date/T madelaine Not Specified Malignant neoplasm of pancreas Unknown Malignant neoplasm of prostate Unknown father Hypertension Unknown Heart disease Unknown Not Specified Malignant neoplasm Unknown Malignant neoplasm of breast Unknown Hypertension Unknown sister Malignant neoplasm of breast Unknown Malignant neoplasm Unknown Relationship Condition Age at Onset Recorded Date/T madelaine Not Specified Malignant neoplasm of pancreas Unknown Malignant neoplasm of prostate Unknown father Hypertension Unknown Heart disease Unknown mother Malignant neoplasm Unknown Malignant neoplasm of breast Unknown Hypertension Unknown sister Malignant neoplasm of breast Unknown Malignant neoplasm Unknown Advance Directives Advance Directive Response Recorded Date/ Time Advance Directives No June 07, 2021 12:28pm Advance Directive Response Recorded Date/ Time Advance Directives No June 07, 2021 11:28am Date Activated Date Inactivated Comments 05/17/2021 11:53 AM 05/17/2021 8:03 PM Chief Complaint * A telephone visit (audio only) between the patient (at the originating site) and the provider (at the distant site) was utilized to provide this telehealth service. * Verbal consent was requested and obtained from MELIDA VALERIO on this date, 07/18/2021 09:40 AM , for a telehealth visit. * MELIDA VALERIO is here for an initial evaluation. MELIDA VALERIO is being seen for a 9 month follow-up of.* Enclosed you will find an order form to have your Pulmonary Functions Test done at [facility]. The specific time and date of your testing is indicated on the form. It is also necessary for you to have a chest x-ray as well as lab work. These tests are needed if you are on one of the following medications: Cordarone, Pacerone, or Amiodarone. * (If your testing is being performed at [facility] - please enter through the [facility] entrance - NOT the Emergency Room entrance. ) * If you are unable to keep the appointment that has been made for you, please contact our office at [phone] and press option #3 so that we may assist you in rescheduling. * Thank you for your compliance with this testing, * The Staff * [facility] * Note: You MAY NOT USE inhalers for 4 hours PRIOR to your Pulmonary Function Test. * [facility] 10/20/2021 @ 10:30am * Enclosed you will find an order form to have your Pulmonary Functions Test done at [facility]. The specific time and date of your testing is indicated on the form. It is also necessary for you to have a chest x-ray as well as lab work. These tests are needed if you are on one of the following medications: Cordarone, Pacerone, or Amiodarone. * (If your testing is being performed at [facility] - please enter through the [facility] entrance - NOT the Emergency Room entrance. ) * If you are unable to keep the appointment that has been made for you, please contact our office at [phone] and press option #3 so that we may assist you in rescheduling. * Thank you for your compliance with this testing, * The Staff * [facility] * Note: You MAY NOT USE inhalers for 4 hours PRIOR to your Pulmonary Function Test * [facility] 04/20/2022 @ 12:45 PM * Enclosed you will find an order form to have your Pulmonary Functions Test done at [facility]. The specific time and date of your testing is indicated on the form. It is also necessary for you to have a chest x-ray as well as lab work. These tests are needed if you are on one of the following medications: Cordarone, Pacerone, or Amiodarone. * (If your testing is being performed at [facility] - please enter through the [facility] entrance - NOT the Emergency Room entrance. ) * If you are unable to keep the appointment that has been made for you, please contact our office at [phone] and press option #3 so that we may assist you in rescheduling. * Thank you for your compliance with this testing, * The Staff * [facility] * Note: You MAY NOT USE inhalers for 4 hours PRIOR to your Pulmonary Function Test * [facility] 10/19/2022 @ 9:45 AM MELIDA VALERIO is being seen for an annual follow-up of.MELIDA VALERIO is being seen for an annual follow-up of.MELIDA VALERIO is being seen for an annual follow-up of.MELIDA VALERIO is being seen for Echo results.* Enclosed you will find an order form to have your Pulmonary Functions Test done at [facility]. The specific time and date of your testing is indicated on the form. It is also necessary for you to have a chest x-ray as well as lab work. These tests are needed if you are on one of the following medications: Cordarone, Pacerone, or Amiodarone. * (If your testing is being performed at [facility] - please enter through the [facility] entrance - NOT the Emergency Room entrance. ) * If you are unable to keep the appointment that has been made for you, please contact our office at [phone] and press option #3 so that we may assist you in rescheduling. 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 Neuropathy Non-small cell lung cancer (NSCLC) Chief Complaint FALL h49.02 Lung Cancer Weakness, Lung Cancer Reason for Visit Clostridium difficil e infection Generalized weakness History of breast cancer 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 Neuropathy Non-small cell lung cancer (NSCLC) Ptosis of eyelid, left Clostridium difficile infection Diplopia Dysphagia Epigastric pain Generalized weakness History of breast cancer 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 Neuropathy Non-small cell lung cancer (NSCLC) Ptosis of eyelid, left Chief Complaint FALL h49.02 Lung Cancer Weakness, Lung Cancer weakness/polyneuropathy/ptosis Reason for Visit Clostridium difficil e infection Generalized weakness History of breast cancer 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 Neuropathy Non-small cell lung cancer (NSCLC) Ptosis of eyelid, left Clostridium difficile infection Diplopia Dysphagia Epigastric pain Generalized weakness History of breast cancer 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 Neuropathy Non-small cell lung cancer (NSCLC) Ptosis of eyelid, left Mahendra esophagitis Clostridium difficile infection Diplopia Dysphagia Essential hypertension Generalized weakness History of breast cancer Impaired mobility and activities of daily living 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 Neuropathy Non-small cell lung cancer (NSCLC) Peripheral polyneuropathy Ptosis of eyelid, left Chief Complaint h49.02 Weakness, Lung Cancer weakness/polyneuropathy/ptosis Lung Cancer Reason for Visit Clostridium difficil e infection Diplopia Dysphagia Epigastric pain Generalized weakness History of breast cancer 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 Neuropathy Non-small cell lung cancer (NSCLC) Ptosis of eyelid, left Mahendra esophagitis Clostridium difficile infection Diplopia Dysphagia Essential hypertension Generalized weakness History of breast cancer Impaired mobility and activities of daily living 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 Neuropathy Non-small cell lung cancer (NSCLC) Peripheral polyneuropathy Ptosis of eyelid, left Clostridium difficile infection Generalized weakness History of breast cancer 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 Neuropathy Non-small cell lung cancer (NSCLC) Ptosis of eyelid, left Chief Complaint Lung Cancer Reason for Visit Clostridium difficil e infection Generalized weakness History of breast cancer 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 Neuropathy Non-small cell lung cancer (NSCLC) Ptosis of eyelid, left Chief Complaint NonFunction Port Lung Cancer Reason for Visit Clostridium difficil e infection Generalized weakness History of breast cancer 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 Neuropathy Non-small cell lung cancer (NSCLC) Ptosis of eyelid, left Chief Complaint NonFunction Port Lung Cancer NonFunction Port Reason for Visit Clostridium difficil e infection Generalized weakness History of breast cancer 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 Neuropathy Non-small cell lung cancer (NSCLC) Ptosis of eyelid, left Chief Complaint NonFunction Port NonFunction Port Lung Cancer Z79.899 I48.0 Reason for Visit Clostridium difficil e infection Generalized weakness History of breast cancer 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 Neuropathy Non-small cell lung cancer (NSCLC) Ptosis of eyelid, left Chief Complaint NonFunction Port NonFunction Port Z79.899 I48.0 Lung Cancer E87.6;Z79.899;I48.0 Reason for Visit Clostridium difficil e infection Generalized weakness History of breast cancer 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 Neuropathy Non-small cell lung cancer (NSCLC) Ptosis of eyelid, left Chief Complaint NonFunction Port NonFunction Port Z79.899 I48.0 E87.6;Z79.899;I48.0 Lung Cancer Reason for Visit Clostridium difficil e infection Generalized weakness History of breast cancer 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 Neuropathy Non-small cell lung cancer (NSCLC) Ptosis of eyelid, left Chief Complaint B-12 SHOT Lung Cancer B12 Reason for Visit Non-small cell lung cancer (NSCLC) Clostridium difficile infection Generalized weakness History of breast cancer 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 Neuropathy Non-small cell lung cancer (NSCLC) Ptosis of eyelid, left Chief Complaint B-12 SHOT B12 Lung Cancer UA Reason for Visit Clostridium difficil e infection Generalized weakness History of breast cancer 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 Neuropathy Non-small cell lung cancer (NSCLC) Ptosis of eyelid, left Chief Complaint B-12 SHOT B12 Lung Cancer UA B12 Reason for Visit Clostridium difficil e infection Generalized weakness History of breast cancer 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 Neuropathy Non-small cell lung cancer (NSCLC) Ptosis of eyelid, left Chief Complaint B12 UA B12 Lung Cancer 6 month follow up Reason for Visit Clostridium difficil e infection Generalized weakness History of breast cancer 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 Non-small cell lung cancer (NSCLC) Ptosis of eyelid, left Atrial fibrillation Chronic bronchitis Chronic kidney disease Essential hypertension SKYLAR (generalized anxiety disorder) History of breast cancer Hypothyroid Type 2 diabetes mellitus with hyperglycemia Chief Complaint B12 6 month follow up Lung Cancer B12 Shot Reason for Visit Atrial fibrillation Chronic bronchitis Chronic kidney disease Essential hypertension SKYLAR (generalized anxiety disorder) History of breast cancer Hypothyroid Type 2 diabetes mellitus with hyperglycemia Clostridium difficile infection Generalized weakness History of breast cancer 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 Non-small cell lung cancer (NSCLC) Ptosis of eyelid, left Chief Complaint B12 6 month follow up B12 Shot Lung Cancer f/u triage 05/05 Reason for Visit Atrial fibrillation Chronic bronchitis Chronic kidney disease Essential hypertension SKYLAR (generalized anxiety disorder) History of breast cancer Hypothyroid Type 2 diabetes mellitus with hyperglycemia Clostridium difficile infection Generalized weakness History of breast cancer 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 Non-small cell lung cancer (NSCLC) Ptosis of eyelid, left Non-small cell lung cancer (NSCLC) Chief Complaint 6 month follow up B12 Shot f/u triage 05/05 Lung Cancer UA, frequency, burning, odor Reason for Visit Atrial fibrillation Chronic bronchitis Chronic kidney disease Essential hypertension SKYLAR (generalized anxiety disorder) History of breast cancer Hypothyroid Type 2 diabetes mellitus with hyperglycemia Non-small cell lung cancer (NSCLC) Clostridium difficile infection Generalized weakness History of breast cancer 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 Non-small cell lung cancer (NSCLC) Ptosis of eyelid, left Chief Complaint 6 month follow up B12 Shot f/u triage 05/05 Lung Cancer UA, frequency, burning, odor B12 Shot Reason for Visit Atrial fibrillation Chronic bronchitis Chronic kidney disease Essential hypertension SKYLAR (generalized anxiety disorder) History of breast cancer Hypothyroid Type 2 diabetes mellitus with hyperglycemia Non-small cell lung cancer (NSCLC) Clostridium difficile infection Generalized weakness History of breast cancer 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 Non-small cell lung cancer (NSCLC) Ptosis of eyelid, left Chief Complaint B12 Shot f/u triage 05/05 UA, frequency, burning, odor B12 Shot Lung Cancer UA, Burning Reason for Visit Non-small cell lung cancer (NSCLC) Clostridium difficile infection Generalized weakness History of breast cancer 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 Non-small cell lung cancer (NSCLC) Ptosis of eyelid, left Chief Complaint B12 Shot f/u triage 05/05 UA, frequency, burning, odor B12 Shot Lung Cancer UA, Burning shingles Reason for Visit Non-small cell lung cancer (NSCLC) Clostridium difficile infection Generalized weakness History of breast cancer 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 Non-small cell lung cancer (NSCLC) Ptosis of eyelid, left Chief Complaint B12 Shot f/u triage 05/05 UA, frequency, burning, odor B12 Shot UA, Burning shingles Follow Up after Scans Lung Cancer Reason for Visit Non-small cell lung cancer (NSCLC) Essential hypertension Shingles Clostridium difficile infection Generalized weakness History of breast cancer 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 Non-small cell lung cancer (NSCLC) Ptosis of eyelid, left Chief Complaint B12 Shot f/u triage 05/05 UA, frequency, burning, odor B12 Shot UA, Burning shingles Follow Up after Scans Lung Cancer B12 shot Reason for Visit Non-small cell lung cancer (NSCLC) Essential hypertension Shingles Clostridium difficile infection Generalized weakness History of breast cancer 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 Non-small cell lung cancer (NSCLC) Ptosis of eyelid, left Chief Complaint B12 Shot f/u triage 05/05 UA, frequency, burning, odor B12 Shot UA, Burning shingles Follow Up after Scans Lung Cancer B12 shot flu shot Reason for Visit Non-small cell lung cancer (NSCLC) Essential hypertension Shingles Clostridium difficile infection Generalized weakness History of breast cancer 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 Non-small cell lung cancer (NSCLC) Ptosis of eyelid, left Pernicious anemia Chief Complaint Admit Date CC Adult Risk Stratification September [id number] 2:10pm wellness September 29, 2024 2:18pm B12 shot November 10, 2024 1 :51pm Reason for Visit Admit Date Atrial fibrillation September 29, 2024 2:18pm Chronic bronchitis September 29, 2024 2:18pm Chronic kidney disease September 29 2:18pm Essential hypertension September 29 2:18pm SKYLAR (generalized anxiety disorder) Decem 2023 2:18pm History of breast cancer September 29, 2024 2:18pm Hypothyroid September 29, 2024 2:18pm Medicare annual wellness visit, subseque nt September 29, 2024 2:18pm Type 2 diabetes mellitus with hyperglyce michelle September 29, 2024 2:18pm Chief Complaint Admit Date CC Adult Risk Stratification September [id number] 2:10pm wellness September 29, 2024 2:18pm B12 shot November 10, 2024 1 :51pm B12 shot December 24, 2024 1:5 5pm Chief Complaint Admit Date B12 shot November 10, 2024 1 :51pm B12 shot December 24, 2024 1:5 5pm 3 month f/u January 27, 2025 2:4 8pm Reason for Visit Admit Date Atrial fibrillation January 27, 2025 2:4 8pm Chronic bronchitis January 27, 2025 2:4 8pm Chronic kidney disease January 27, 2025 2:48pm Essential hypertension January 27, 2025 2:48pm SKYLAR (generalized anxiety disorder) January 27, 2025 2:48pm History of breast cancer January 27 2:48pm Hypothyroid January 27, 2025 2:4 8pm Type 2 diabetes mellitus with hyperglyce michelle January 27, 2025 2:48pm Chief Complaint Admit Date 3 month f/u January 27, 2025 2:4 8pm b12 shot April 10, 2025 2:22 pm Reason for Visit Admit Date Acute thoracic back pain January 27 2:48pm Atrial fibrillation January 27, 2025 2:4 8pm Chronic bronchitis January 27, 2025 2:4 8pm Chronic kidney disease January 27, 2025 2:48pm Essential hypertension January 27, 2025 2:48pm SKYLAR (generalized anxiety disorder) January 27, 2025 2:48pm History of breast cancer January 27 2:48pm Hypothyroid January 27, 2025 2:4 8pm Malignant neoplasm of middle lobe of rig ht lung January 27, 2025 2:48pm Type 2 diabetes mellitus with hyperglyce michelle January 27, 2025 2:48pm Chief Complaint Admit Date 3 month f/u January 27, 2025 2:4 8pm b12 shot April 10, 2025 2:22 pm UA, burning April 20, 2025 11:03 am Chief Complaint Admit Date b12 shot April 10, 2025 2:22 pm UA, burning April 20, 2025 11:03 am 4 mo f/u June 01, 2025 1: 40pm Reason for Visit Admit Date Acute thoracic back pain June 01 1:40pm Atrial fibrillation June 01, 2025 1: 40pm Chronic bronchitis June 01, 2025 1: 40pm Chronic kidney disease June 01, 2025 1:40pm Essential hypertension June 01, 2025 1:40pm SKYLAR (generalized anxiety disorder) Aug2024 1:40pm History of breast cancer June 01 1:40pm Hypothyroid June 01, 2025 1: 40pm Malignant neoplasm of middle lobe of rig ht lung June 01, 2025 1:40pm Type 2 diabetes mellitus with hyperglyce michelle June 01, 2025 1:40pm Reason for Referral Specialty Diagnoses / Procedures Referred By Jakub simpson Referred To Contact MR IMAGING Diagnoses Diplopia Procedures MRI BRAIN WO/W IVCON MRI BRAIN BRAIN STEM W/O W/CONTRAST MATERIAL Jaison Mars, [address] [place] [address] Mr Imaging Referral ID Status Reason Start Date Expiration Date Visits Requested Visits Authorized [id number] Authorized Auto-Generat ed Referral 11/16/2022 12/16/2023 1 1 Specialty Diagnoses / Procedures Referred By Jakub simpson Referred To Contact Diagnoses Paroxysmal atrial fibrillation (Multi) Procedures ECG 12 Lead Ron Cadena MD [address] [place] [address], [address] [address] Referral ID Status Reason Start Date Expiration Date V isits Requested Visits Authorized [id number] Authorized 03/05/2024 03/05/2025 1 1 Specialty Diagnoses / Procedures Referred By Contac t Referred To Contact Diagnoses High risk medication use Procedures Complete Pulmonary Function Test (Spirometry/DLCO/Lung Volumes) Ron Cadena MD [address] [place] [address] 2, [address] [address] Referral ID Status Reason Start Date Expiration Date V isits Requested Visits Authorized [id number] Pending Review 03/05/2024 03/05/2025 1 1 Specialty Diagnoses / Procedures Referred By Contac t Referred To Contact Radiology Diagnoses High risk medication use Procedures XR chest 2 views Ron Cadena MD [address] [place] [address], [place] [id number] Referral ID Status Reason Start Date Expiration Date Visits Requested Visits Authorized [id number] Pending Review Perform Procedure 03/05/2024 03/05/2025 1 1 Specialty Diagnoses / Procedures Referred By Contac t Referred To Contact Cardiology Diagnoses Paroxysmal atrial fibrillation (Multi) Procedures Follow Up In Cardiology Ron Cadena MD [address] [place] [address], [address] [address] Heidi Kuhn MD [address] [place] [address] 2, [address] [address] Referral ID Status Reason Start Date Expiration Date V isits Requested Visits Authorized [id number] Authorized 03/05/2024 03/05/2025 1 1 Specialty Diagnoses / Procedures Referred By Contac t Referred To Contact MR IMAGING Diagnoses Diplopia Procedures MRI BRAIN WO/W IVCON MRI BRAIN BRAIN STEM W/O W/CONTRAST MATERIAL Jaison Mars DO [address] [place] [address] [place] [address] Referral ID Status Reason Start Date Expiration Date V isits Requested Visits Authorized [id number] Closed Auto-Generate d Referral 11/16/2022 12/16/2023 1 1 Additional Source Comments INFORMATION SOURCE (unrecogn ized section and content) DATE CREATED AUTHOR 02/09/2019 [facility] DATE CREATED AUTHOR AUTHOR'S ORGANIZ ATION 06/09/2022 [facility] DATE CREATED AUTHOR AUTHOR'S ORGANIZ ATION 12/15/2022 [facility] DATE CREATED AUTHOR AUTHOR'S ORGANIZ ATION 01/05/2023 [facility] DATE CREATED AUTHOR AUTHOR'S ORGANIZ ATION 01/05/2023 [facility] DATE CREATED AUTHOR AUTHOR'S ORGANIZ ATION 02/04/2023 [facility] DATE CREATED AUTHOR AUTHOR'S ORGANIZ ATION 03/08/2024 [facility] DATE CREATED AUTHOR AUTHOR'S ORGANIZ ATION 06/24/2024 [facility] DATE CREATED AUTHOR AUTHOR'S ORGANIZ ATION 09/09/2024 [facility] DATE CREATED AUTHOR AUTHOR'S ORGANIZ ATION 03/30/2025 [facility] DATE CREATED AUTHOR AUTHOR'S ORGANIZ ATION 04/04/2025 [facility] EPIC DATE CREATED AUTHOR AUTHOR'S ORGANIZ ATION 05/26/2025 [facility] Care Teams (unrecognized sec tion and content) Team Status: Active Member Role Status Dates Wong Espino DO Primary Care Provider Active Team Status: Inactive Member Role Status Dates Wong Espino DO Primary Care Provide r, Attending Provider Active Start: November 10, 2024 End: November 10, 2024 Team Status: Inactive Member Role Status Dates Wong Espino DO Primary Care Provide r, Attending Provider Active Start: December 24, 2024 End: December 24, 2024 Team Status: Inactive Member Role Status Dates Wong Espino DO Primary Care Provide r, Attending Provider Active Start: January 27, 2025 End: January 27, 2025 Team Status: Active Member Role Status Dates Wong Espino DO Primary Care Provide r, Attending Provider Active Start: September 26, 2024 Team Status: Inactive Member Role Status Dates Owng Ball , DO Primary Care Provide r, Attending Provider Active Start: September 29, 2024 End: September 29, 2024 Team Status: Inactive Member Role Status Dates Wong Espino , DO Primary Care Provider Active Start: November 05, 2023 End: November 05, 2023 Bertha Ariana Joicz II, DO Attending Provider Active Start: November 05, 2023 End: November 05, 2023 Team Status: Inactive Member Role Status Dates Wong Espino , DO Primary Care Provide r, Attending Provider Active Start: December 12, 2023 End: December 12, 2023 Team Status: Active Member Role Status Dates Bertha Ariana Joicz II, DO Attending Provider Active Start: December 27, 2023 Hiralmelvina Mccarty [facility] , DO Referring Provider Active Start: December 27, 2023 Wong Espino , DO Primary Care Provider Active Start: December 27, 2023 Team Status: Inactive Member Role Status Dates Wong Espino , DO Primary Care Provide r, Attending Provider Active Start: January 29, 2024 End: January 29, 2024 Team Status: Active Member Role Status Dates Bertha Joicz II, DO Attending Provider Active Hiralmelvina Mccarty Referring Provider Active Wong Espino , DO Primary Care Provider Active Team Status: Inactive Member Role Status Dates Wong Espino , DO Primary Care Provider Active Mane Ramirez MD Emergency Provider Active Team Status: Inactive Member Role Status Dates Wong Espino , DO Primary Care Provider, Attending Pr ovider Active Team Status: Active Member Role Status Dates Bertha Ariana Joicz II, DO Attending Provider Active Hiralmelvina Mccarty Referring Provider Active Wong Espino , DO Primary Care Provider Active Jaime Solorio MD Active Team Status: Inactive Member Role Status Dates Wong Espino , DO Primary Care Provider Active Joseluis Yee MD Admit Provider Active Wilfrido Argueta , DO Other Provider Active Bertha Joicz II, DO Other Provider Active Yfn Whiting , DO Other Provider Active Ramona Lee MD Attending Provider Active Team Status: Inactive Member Role Status Dates Wong Espino , DO Primary Care Provider Active Dorian Thomason MD Admit Provider, Attending Provider A francis Parra , JANI Other Provider Active Vianney Shepherd , JANI Other Provider Active Kaleigh Tellez , RN Other Provider Active Kelley Borden , RN Other Provider Active Kathi Zamora , JANI Other Provider Active Parisa Shah JANI Other Provider Active Natali De La Vega RN Other Provider Active Panfilo Arroyo MD Other Provider Active Ovidio Che MD Other Provider Active Holley Sims METAL FURNACE OPERATOR Other Provider Active Stanford Bee , DO Other Provider Active Dima Lees MD Other Provider Active Shamir Haley , DO Other Provider Active Yrn Kruse MD Other Provider Active Marlys Loja MD Other Provider Active Uvaldo Diop MD Other Provider Active Amanda Dior , ANP-BC Other Provider Active Edwar Trujillo MD Other Provider Active Jesus Stubbs MD Other Provider Active Bob Dangelo MD Other Provider Active Ramona Lee MD Other Provider Active Tapan Reyes , DO Other Provider Active Shravan Gilbert MD Other Provider Active Ricco Priest MD Other Provider Active Imelda Rodarte MD Other Provider Active Omar Baires MD Other Provider Active Tonya Balderrama , MARKET RISK SPECIALIST-C Other Provider Active David Long MD Other Provider Active Agusto Elena MD Other Provider Active Hesham Bowman MD Other Provider Active Luis Mcintosh MD Other Provider Active Aleah Solorio MD Other Provider Active Joseluis Yee MD Other Provider Active Tyron Banuelos MD Other Provider Active Montse Mccurdy , DO Other Provider Active Charles Claudio MD Other Provider Active Roger Baca , DO Other Provider Active Francis Nash , DO Other Provider Active Lolis Patton METAL FURNACE OPERATOR Other Provider Active Sierra Aceves RN Other Provider Active Selina Brand , METAL FURNACE OPERATOR Other Provider Active Kim Estrella Other Provider Active Amira Millan , DO Other Provider Active Angelica Spaulding MD Other Provider Active Olaf Sullivan , DO Other Provider Active Mary Mari , ANP-BC Other Provider Active Wilfrido Argueta , DO Other Provider Active Elena Crump METAL FURNACE OPERATOR Other Provider Active Bertha Christianson II, DO Other Provider Active Team Status: Inactive Member Role Status Theo Espino , DO Primary Care Provider Active Joseluis Yee MD Admit Provider Active Wilfrido Argueta , DO Other Provider Active Bertha Christianson II, DO Other Provider Active Ramona Lee MD Attending Provider Active Yfn Whiting , DO Other Provider Active Team Status: Inactive Member Role Status Dates Wong Espino , DO Primary Care Provider Active Geoffrey Noel MD Attending Provider Active Team Status: Inactive Member Role Status Dates Wong Espino , DO Primary Care Provider Active Ron Cadena MD Attending Provider Active Team Status: Inactive Member Role Status Dates Wong Espino , DO Primary Care Provider Active Ron Cadena MD Attending Provider Active Heidi Kuhn MD Referring Provider Active Crematory Attendant Relationship Specialty Start Date End Date Wong Espino DO PCP - General Internal Medicine 01/02/17 Crematory Attendant Relationship Specialty Start Date End Date Wong Espino DO PCP - General Internal Medicine 01/02/17 Team Status: Active Member Role Status Dates Bertha Christianson II, DO Attending Provider Active Start: February 08, 2024 Hiral VUONG DO Referring Provider Active Start: February 08, 2024 Wong Espino DO Primary Care Provider Active Start: February 08, 2024 Team Status: Inactive Member Role Status Dates Wong Espino DO Primary Care Provide r, Attending Provider Active Start: February 12, 2024 End: February 12, 2024 Crematory Attendant Relationship Specialty Start Date End Date Wong Espino DO PCP - General 01/04/23 Crematory Attendant Relationship Specialty Start Date End Date Wong Espino DO PCP - General 01/04/23 Team Status: Inactive Member Role Status Dates Wong Espino DO Primary Care Provider Active Start: March 06, 2024 End: March 06, 2024 Jennifer Vargas MD Attending Provider Active St art: March 06, 2024 End: March 06, 2024 Team Status: Active Member Role Status Dates Bertha Christianson II, DO Attending Provider Active Start: March 21, 2024 Hiral VUONG DO Referring Provider Active Start: March 21, 2024 Wong Espino , Primary Care Provider Active Start: March 21, 2024 Team Status: Inactive Member Role Status Dates Wong Espino DO Primary Care Provide r, Attending Provider Active Start: March 28, 2024 End: March 28, 2024 Team Status: Active Member Role Status Dates Bertha Christiasnon II, DO Attending Provider Active Start: May 02, 2024 Hiral Mccarty [facility] , DO Referring Provider Active Start: May 02, 2024 Wong Espino , DO Primary Care Provider Active Start: May 02, 2024 Team Status: Inactive Member Role Status Dates Wong Espino DO Primary Care Provide r, Attending Provider Active Start: May 13, 2024 End: May 13, 2024 Team Status: Active Member Role Status Dates Bertha Christianson II, Attending Provider Active Start: May 19, 2024 Hiral Mccarty [facility] , DO Referring Provider Active Start: May 19, 2024 Wong Espino , DO Primary Care Provider Active Start: May 19, 2024 Team Status: Inactive Member Role Status Dates Wong Espino DO Primary Care Provider Active Start: May 19, 2024 End: May 19, 2024 Bertha Christianson II, DO Attending Provider Active Start: May 19, 2024 End: May 19, 2024 Team Status: Active Member Role Status Dates Bertha Christianson II, Attending Provider Active Start: June 06, 2024 Hiral VUONG , DO Referring Provider Active Start: June 06, 2024 Wong Espino , DO Primary Care Provider Active Start: June 06, 2024 Team Status: Inactive Member Role Status Dates Wong Espino DO Primary Care Provide r, Attending Provider Active Start: June 13, 2024 End: June 13, 2024 Team Status: Inactive Member Role Status Dates Wong Espino DO Primary Care Provide r, Attending Provider Active Start: June 17, 2024 End: June 17, 2024 Team Status: Active Member Role Status Dates Bertha Christianson II, DO Attending Provider Active Start: June 23, 2024 Hiral VUONG , DO Referring Provider Active Start: June 23, 2024 Wong Espino , DO Primary Care Provider Active Start: June 23, 2024 Team Status: Inactive Member Role Status Dates Wong Espino DO Primary Care Provide r, Attending Provider Active Start: June 27, 2024 End: June 27, 2024 Team Status: Inactive Member Role Status Dates Wong Espino DO Primary Care Provide r, Attending Provider Active Start: July 07, 2024 End: July 07, 2024 Crematory Attendant Relationship Specialty Start Date End Date Wong Espino DO PCP - General Internal Medicine 01/02/17 Team Status: Inactive Member Role Status Dates Wong Espino DO Primary Care Provider Active Start: July 14, 2024 End: July 14, 2024 Bertha Christianson II, Attending Provider Active Start: July 14, 2024 End: July 14, 2024 Team Status: Active Member Role Status Dates Bertha Christianson II, DO Attending Provider Active Start: July 14, 2024 Hiral Dillard DO Cr Referring Provider Active Start: July 14, 2024 Wong Espino DO Primary Care Provider Active Start: July 14, 2024 Team Status: Inactive Member Role Status Dates Wong Espino DO Primary Care Provider Active Start: July 24, 2024 End: July 24, 2024 Jennifer Vargas MD Attending Provider Active St art: July 24, 2024 End: July 24, 2024 Team Status: Inactive Member Role Status Dates Wong Espino DO Primary Care Provide r, Attending Provider Active Start: August 06, 2024 End: August 06, 2024 Crematory Attendant Relationship Specialty Start Date End Date Wong Espino DO [address] [place], [place] [id number] PCP - General 08/02/17 Crematory Attendant Relationship Specialty Start Date End Date Wong Espino DO [address] [place], [place] [id number] PCP - General 08/02/17 Crematory Attendant Relationship Specialty Start Date End Date Wong Espino DO [address] [place], [place] [id number] PCP - General 08/02/17 Crematory Attendant Relationship Specialty Start Date End Date Wong Espino DO PCP - General 01/04/23 Crematory Attendant Relationship Specialty Start Date End Date Wong Espino DO [address] [place] [address] PCP - General 08/02/17 Crematory Attendant Relationship Specialty Start Date End Date Wong Espino DO [facility] [place] [address] PCP - General Internal Medicine 03/16/25 Crematory Attendant Relationship Specialty Start Date End Date Wong Espino DO [address] [place] [address] PCP - General 08/02/17 Team Status: Inactive Member Role Status Dates Wong Espino DO Primary Care Provider Active Start: January 27, 2025 End: January 27, 2025 Wong Espino DO Attending Provider Active Sta rt: January 27, 2025 End: January 27, 2025 Team Status: Inactive Member Role Status Dates Wong Espino DO Primary Care Provider Active Start: April 10, 2025 End: April 10, 2025 Wong Espino DO Attending Provider Active Sta rt: April 10, 2025 End: April 10, 2025 Team Status: Inactive Member Role Status Dates Wong Espino DO Primary Care Provider Active Start: April 20, 2025 End: April 20, 2025 Wong Espino DO Attending Provider Active Sta rt: April 20, 2025 End: April 20, 2025 Team Status: Inactive Member Role Status Dates Wong Espino DO Primary Care Provider Active Start: June 01, 2025 End: June 01, 2025 Wong Espino DO Attending Provider Active Sta rt: June 01, 2025 End: June 01, 2025 Goals (unrecognized section and content) Goals may be documented in a n alternate sectionGoals may be documented in an alternate sectionGoals may be documented in an alternate sectionGoals may be documented in an alternate sectionGoals may be documented in an alternate sectionGoals may be documented in an alternate sectionGoals may be documented in an alternate sectionNo InformationNo InformationNo InformationNo InformationNo InformationNo InformationNo InformationGoals may be documented in an alternate sectionNo InformationNo InformationNo InformationNo InformationNo InformationNo InformationNo InformationNo InformationGoals may be documented in an alternate sectionGoals may be documented in an alternate sectionGoals may be documented in an alternate sectionGoals may be documented in an alternate sectionGoals may be documented in an alternate sectionGoals may be documented in an alternate sectionGoals may be documented in an alternate sectionGoals may be documented in an alternate sectionGoals may be documented in an alternate sectionGoals may be documented in an alternate sectionGoals may be documented in an alternate sectionGoals may be documented in an alternate sectionGoals may be documented in an alternate sectionGoals may be documented in an alternate sectionGoals may be documented in an alternate sectionGoals may be documented in an alternate sectionGoals may be documented in an alternate sectionGoals may be documented in an alternate sectionGoals may be documented in an alternate section Source Comments (unrecognize d section and content) In the event this informatio n is protected by the Federal Confidentiality of Alcohol and Drug Abuse Patient Records regulations: The Federal rules restrict any use of the information to criminally investigate or prosecute any alcohol or drug abuse patient.[facility] Center[facility] the event this information is protected by the Federal Confidentiality of Alcohol and Drug Abuse Patient Records regulations: The Federal rules restrict any use of the information to criminally investigate or prosecute any alcohol or drug abuse patient.[facility] Center[facility] the event this information is protected by the Federal Confidentiality of Alcohol and Drug Abuse Patient Records regulations: The Federal rules restrict any use of the information to criminally investigate or prosecute any alcohol or drug abuse patient.[facility] Reason for Visit (unrecogniz ed section and content) Reason Comments Myasthenia Gravis Reason Comments Results Reason Comments Annual Exam Specialty Diagnoses / Procedures Referred By Contac t Referred To Contact Diagnoses Paroxysmal atrial fibrillation (Multi) Procedures ECG 12 Lead Ron Cadena MD [address] [facility] [address], [address] [address] Referral ID Status Reason Start Date Expiration Date V isits Requested Visits Authorized [id number] Authorized 03/05/2024 03/05/2025 1 1 Specialty Diagnoses / Procedures Referred By Contac t Referred To Contact Radiology Diagnoses High risk medication use Procedures XR chest 2 views Ron Cadena MD [address] [place] [address], [address] [address] Referral ID Status Reason Start Date Expiration Date Visits Requested Visits Authorized [id number] Pending Review Perform Procedure 03/05/2024 03/05/2025 1 1 Reason Comments Radiology MRI Specialty Diagnoses / Procedures Referred By Contac t Referred To Contact MR IMAGING Diagnoses Diplopia Procedures MRI BRAIN WO/W IVCON MRI BRAIN BRAIN STEM W/O W/CONTRAST MATERIAL Jaison Mars DO [address] [place] [address] [place] [address] Referral ID Status Reason Start Date Expiration Date V isits Requested Visits Authorized [id number] Closed Auto-Generate d Referral 11/16/2022 12/16/2023 1 1 Reason Comments Port/VAD Care Reason Comments Follow-up Reason Comments Follow-up 9 month Specialty Diagnoses / Procedures Referred By Contac t Referred To Contact Cardiology Diagnoses Paroxysmal atrial fibrillation (Multi) Procedures Follow Up In Cardiology Ron Cadena MD Traboulssi, Mourhaf, MD [facility] [facility] [address], [address] [address] Phone: tel: fax: Referral ID Status Reason Start Date Expiration Date V isits Requested Visits Authorized [id number] Authorized 03/05/2024 03/05/2025 1 1 Reason Comments Port/VAD Care Port flush Reason Comments EKG Visit Specialty Diagnoses / Procedures Referred By Contac t Referred To Contact Diagnoses Persistent atrial fibrillation (Multi) Procedures ECG 12 Lead Heidi Kuhn MD [facility] [facility] [address], [address] [address] Phone: tel: fax: Referral ID Status Reason Start Date Expiration Date V isits Requested Visits Authorized [id number] Authorized 03/10/2025 03/10/2026 1 1 Reason Comments Macular Degeneration FOR RECORDS PERTAINING TO PATIENTS WHO ARE OR HAVE BEEN ENROLLED IN A CHEMICAL DEPENDENCY/SUBSTANCEABUSE PROGRAM, SOME INFORMATION MAY BE OMITTED. This clinical summary was aggregated from multiple sources. Caution should be exercised in using it in the provision of clinical care. This summary normalizes information from multiple sources, and as a consequence, information in this document may materially change the coding, format and clinical context of patient data. In addition, data may be omitted in some cases. CLINICAL DECISIONS SHOULD BE BASED ON THE PRIMARY CLINICAL RECORDS. [employer] provides no warranty or guarantee of the accuracy or completeness of information in this document.
== END 2025-06-02 10:39 | disposition home or self-care (01) ==
LOC: LAB 10:38
PROVIDERS: PCP Internal Medicine; Visit Provider Internal Medicine
DX: R30.0 Dysuria (principal)
CPT/HCPCS: 81001; 87086; 87088; 87186